=== PATIENT | female | born 1965 | race Hispanic/Latino ===

== ENCOUNTER 2016-06-24 00:42 | Inpatient (IN) | payer MEDICARE ==
[2016-06-24] MEDS ORDERED: DUONEB 0.5 MG-3 MG/3 ML SOLN IH ONE ×3 (01:43→05:21)
[2016-06-24 02:28] LABS: Basophils % (Auto) 0.6 % (0.0-1.8); Eosinophils % (Auto) 1.8 % (0.0-4.3); Hematocrit 43.3 % (30.3-42.9); Hemoglobin 14.1 gm/dl (10.1-14.3); Mean Corpuscular HGB Conc 33 % (30-34); Mean Corpuscular Hemoglobin 29 pg (28-32); Mean Corpuscular Volume 89 fl (79-97); Platelet Count 272 K/mm3 (140-440); Red Blood Count 4.85 M/mm3 (3.65-5.03); Red Cell Distribution Width 14.5 % (13.2-15.2)
[2016-06-24 02:48] LABS: BUN/Creatinine Ratio 18.57; Blood Urea Nitrogen 13 mg/dL (7-17); Calcium 9.6 mg/dL (8.4-10.2); Carbon Dioxide 29 mmol/L (22-30); Chloride 96.1 mmol/L (98-107); Glucose 337 mg/dL (65-100); Potassium 4.9 mmol/L (3.6-5.0); Sodium 139 mmol/L (137-145)
[2016-06-24 02:50] LABS: Anion Gap 19 mmol/L
[2016-06-24] MEDS ORDERED: ATROVENT IH ONE (06:19)
[2016-06-24] MEDS ORDERED: NACL 0.9% 1000 ML 1,000 ML IV ONE (06:19)
[2016-06-24] MEDS ORDERED: TORADOL IV ONE (06:19)
[2016-06-24] MEDS ORDERED: NITROSTAT SL PRN (06:20)
[2016-06-24] MEDS ORDERED: PROVENTIL IH ONE (06:20)
--- NOTE | 2016-06-24 06:27 | Emergency Department Report ---
ED General Adult HPI - General Chief complaint: Dyspnea/Respdistress Stated complaint: ANN Time Seen by Provider: 06/24/16 06:12 Source: patient, EMS (ems notes not available at time of chart dictation), RN notes reviewed, old records reviewed Mode of arrival: Wheelchair Limitations: Physical Limitation - History of Present Illness Initial comments: Past medical history: COPD, home oxygen dependent, 2 L, diabetes, hypertension, bipolar, anxiety, chronic pain, spinal fusion, possible congestive heart failure Primary care Dr.: Jennifer Lacy This is a 50-year-old female, whom I have evaluated in the past. Patient presents to the ER complaining of cough, wheezing, shortness of breath, chest tightness. Symptoms have been present for the past few days. The chest tightness is not ready to the back, arms or neck. There is no vomiting or diaphoresis. There is no leg pain. There is no leg swelling. The patient reports a recent admission to [facility], for similar symptoms, and indicates that she had a stress test and ultrasound to exclude blood clots, and she indicates that these were negative. Patient's symptoms are consistent with her prior episodes of COPD, she reports triggers include cold weather, change of seasons, viral syndrome. -: Gradual Location: chest Severity scale (0 -10): 0 Quality: aching Consistency: intermittent Improves with: rest Worsens with: movement Associated Symptoms: chest pain, cough, loss of appetite, shortness of breath, weakness - Related Data Home Medications Medication Instructions Recorded Confirmed Last Taken Aspirin 81 mg PO DAILY 01/23/16 06/24/16 1 Day Ago 81 Citalopram Hydrobromide [celeXA] 40 mg PO DAILY 01/23/16 06/24/16 1 Day Ago 40 Insulin Lispro [HumaLOG VIAL] 10 units SQ AC 01/23/16 06/24/16 1 Day Ago 10 LORazepam [Ativan] 2 mg PO BID PRN 01/23/16 06/24/16 1 Day Ago 2 Lisinopril [Zestril] 20 mg PO QDAY 01/23/16 06/24/16 1 Day Ago 20 Morphine [Morphine TAB] 15 mg PO BID 01/23/16 06/24/16 1 Day Ago 15 Olanzapine [OLANZapine] 10 mg PO QHS 01/23/16 06/24/16 1 Day Ago 10 Allergies Allergy/AdvReac Type Severity Reaction Status Date / Time oxycodone HCl [From Percocet] Allergy Angioedema Verified 01/23/16 06:50 Penicillins Allergy Angioedema Verified 01/23/16 06:50 prednisone Allergy Unknown Verified 06/24/16 01:38 bupropion HCl AdvReac Unknown Verified 01/23/16 06:50 [From Wellbutrin] divalproex sodium AdvReac Unknown Verified 01/23/16 06:50 [From Depakote] fluoxetine HCl [From Prozac] AdvReac Unknown Verified 01/23/16 06:50 lithium AdvReac Unknown Verified 01/23/16 06:50 ED Review of Systems ROS: Stated complaint: ANN Other details as noted in HPI Constitutional: malaise, weakness Eyes: denies: eye discharge ENT: denies: epistaxis Respiratory: shortness of breath, SOB with exertion, wheezing Cardiovascular: chest pain, dyspnea on exertion Gastrointestinal: denies: vomiting Genitourinary: as per HPI Musculoskeletal: back pain, myalgia Skin: denies: lesions Neurological: weakness Psychiatric: anxiety ED Past Medical Hx - Past Medical History Previous Medical History?: Yes Hx Hypertension: Yes Hx Congestive Heart Failure: Yes Hx Diabetes: Yes Hx Psychiatric Treatment: Yes Hx Asthma: Yes Hx COPD: Yes Hx HIV: No - Surgical History Past Surgical History?: Yes Additional Surgical History: left hip - Social History Smoking Status: Former Smoker - Medications Home Medications: Home Medications Medication Instructions Recorded Confirmed Last Taken Type Aspirin 81 mg PO DAILY 01/23/16 06/24/16 1 Day Ago History 81 Citalopram Hydrobromide [celeXA] 40 mg PO DAILY 01/23/16 06/24/16 1 Day Ago History 40 Insulin Lispro [HumaLOG VIAL] 10 units SQ AC 01/23/16 06/24/16 1 Day Ago History 10 LORazepam [Ativan] 2 mg PO BID PRN 01/23/16 06/24/16 1 Day Ago History 2 Lisinopril [Zestril] 20 mg PO QDAY 01/23/16 06/24/16 1 Day Ago History 20 Morphine [Morphine TAB] 15 mg PO BID 01/23/16 06/24/16 1 Day Ago History 15 Olanzapine [OLANZapine] 10 mg PO QHS 01/23/16 06/24/16 1 Day Ago History 10 ED Physical Exam - General Limitations: No Limitations, Physical Limitation General appearance: alert, obese - Head Head exam: Present: atraumatic, normocephalic - Eye Eye exam: Present: normal appearance, EOMI. Absent: nystagmus - ENT ENT exam: Present: normal exam, normal orophraynx, mucous membranes moist, normal external ear exam - Neck Neck exam: Present: normal inspection, full ROM. Absent: tenderness, meningismus - Respiratory Respiratory exam: Present: respiratory distress, wheezes, rhonchi, chest wall tenderness - Cardiovascular Cardiovascular Exam: Present: regular rate, normal rhythm, normal heart sounds. Absent: bradycardia, tachycardia, irregular rhythm, systolic murmur, diastolic murmur, rubs, gallop - GI/Abdominal GI/Abdominal exam: Present: soft, normal bowel sounds. Absent: distended, tenderness, guarding, rebound, rigid, pulsatile mass - Extremities Exam Extremities exam: Present: normal inspection, full ROM, normal capillary refill. Absent: tenderness, pedal edema, joint swelling, calf tenderness - Back Exam Back exam: Present: normal inspection, full ROM. Absent: tenderness, CVA tenderness (R), CVA tenderness (L), muscle spasm, paraspinal tenderness, vertebral tenderness - Neurological Exam Neurological exam: Present: alert, other (Extraocular movements intact. Tongue midline. No facial droop. Facial sensation intact to light touch in the V1, V2 , V3 distribution bilaterally. 5 and 5 strength in 4 extremities.. Sensation is intact to light touch in 4 extremities.). Absent: motor sensory deficit - Psychiatric Psychiatric exam: Present: anxious - Skin Skin exam: Present: warm, dry, intact, normal color. Absent: rash ED Course Vital Signs 06/24/16 06/24/16 06/24/16 01:32 01:51 02:00 Temperature 98.7 F Pulse Rate 88 Pulse Rate [ 89 92 H Throughout] Respiratory 24 Rate Respiratory 20 20 Rate [ Throughout] Blood Pressure 125/81 Blood Pressure [Left] O2 Sat by Pulse 99 Oximetry 06/24/16 06/24/16 06/24/16 04:49 05:28 05:35 Temperature 98.7 F Pulse Rate 89 Pulse Rate [ 80 85 Throughout] Respiratory 20 Rate Respiratory 16 16 Rate [ Throughout] Blood Pressure 133/81 Blood Pressure [Left] O2 Sat by Pulse 98 Oximetry 01/06/24/16 06/24/16 05:57 05:59 06:00 Temperature Pulse Rate 87 81 Pulse Rate [ Throughout] Respiratory 20 18 Rate Respiratory Rate [ Throughout] Blood Pressure Blood Pressure 131/68 134/66 [Left] O2 Sat by Pulse 96 96 96 Oximetry 06/24/16 06/24/16 06/24/16 06:36 12:55 13:10 Temperature Pulse Rate 94 H Pulse Rate [ 78 Throughout] Respiratory 18 Rate Respiratory 20 Rate [ Throughout] Blood Pressure 146/76 Blood Pressure [Left] O2 Sat by Pulse Oximetry - Reevaluation(s) Reevaluation #1: 06/24/16 06:28 Differential diagnosis: COPD exacerbation, pneumonia, bronchitis, congestive heart failure, acute coronary syndrome, pulmonary embolus Assessment and plan: 50-year-old female with shortness of breath, wheezing, oxygen dependent, saturating at 93/94% on 2 L, most likely with recurrent COPD exacerbation. I have evaluated the patient for similar symptoms in the past. I appreciates that the patient had a recent negative stress test by her own recall, we will attempt to obtain her old medical records and clarified. Patient had a negative CT angiogram of the chest at this facility in December of last year for pulmonary embolus. Nevertheless, given her recent reports of hospital admission, I will send a d-dimer to risk stratify her for pulmonary embolus, although I think that she is a low pretest probability candidate. She will be treated with nonnarcotic pain medication, and she is known to tolerate Solu-Medrol. I highly doubt acute coronary syndrome, but I will order as needed nitroglycerin. There may be a component of volume depletion secondary to her probable COPD, clinically I do not believe that she is finding overloaded, and I will give her 1 L of IV fluid. Reevaluation #2: 06/24/16 07:37 D-dimer is still pending. Informed by nurse the patient ambulated to the restroom without difficulty. Insulin ordered for hyperglycemia. Repeat troponin ordered. Reevaluation #3: 06/24/16 08:02 D-dimer is negative. Patient's medical records are received. She was admitted from June 12 2 June 14. Patient was diagnosed with a COPD exacerbation, and also had a positive nuclear stress test. Cardiology was consult, but the discharge summary indicates that the patient refused further cardiac testing. Patient is still wheezing, she still reports that she is somewhat short of breath. I have gone back to reevaluate the patient. She stated that she would be amenable to a more aggressive cardiac workup if cardiology felt like that would be appropriate. Case is discussed the Hospital physician, Dr. Bautista, who accepts the patient to his service for COPD exacerbation, chest pain with recent history of positive stress test. 06/24/16 08:04 Reevaluation #4: 06/24/16 08:22 d/w Willow Quintanilla of cardiology, their group will follow ED Medical Decision Making - Lab Data Result diagrams: 06/24/16 02:13 06/24/16 02:13 Vital Signs 06/24/16 06/24/16 06/24/16 01:32 01:51 02:00 Temperature 98.7 F Pulse Rate 88 Pulse Rate [ 89 92 H Throughout] Respiratory 24 Rate Respiratory 20 20 Rate [ Throughout] Blood Pressure 125/81 Blood Pressure [Left] O2 Sat by Pulse 99 Oximetry 06/24/16 06/24/16 06/24/16 04:49 05:28 05:35 Temperature 98.7 F Pulse Rate 89 Pulse Rate [ 80 85 Throughout] Respiratory 20 Rate Respiratory 16 16 Rate [ Throughout] Blood Pressure 133/81 Blood Pressure [Left] O2 Sat by Pulse 98 Oximetry 06/24/16 06/24/16 06/24/16 05:57 05:59 06:00 Temperature Pulse Rate 87 81 Pulse Rate [ Throughout] Respiratory 20 18 Rate Respiratory Rate [ Throughout] Blood Pressure Blood Pressure 131/68 134/66 [Left] O2 Sat by Pulse 96 96 96 Oximetry Lab Results 06/24/16 06/24/16 06/24/16 Range/Units 02:13 02:13 03:26 WBC 10.0 (4.5-11.0) K/mm3 RBC 4.85 (3.65-5.03) M/mm3 Hgb 14.1 (10.1-14.3) gm/dl Hct 43.3 H (30.3-42.9) % MCV 89 (79-97) fl MCH 29 (28-32) pg MCHC 33 (30-34) % RDW 14.5 (13.2-15.2) % Plt Count 272 (140-440) K/mm3 Lymph % (Auto) 9.0 L (13.4-35.0) % [place] % (Auto) 2.5 (0.0-7.3) % Eos % (Auto) 1.8 (0.0-4.3) % Baso % (Auto) 0.6 (0.0-1.8) % Lymph # 0.9 L (1.2-5.4) K/mm3 [place] # 0.2 (0.0-0.8) K/mm3 Eos # 0.2 (0.0-0.4) K/mm3 Baso # 0.1 (0.0-0.1) K/mm3 Seg Neutrophils % 86.1 H (40.0-70.0) % Seg Neutrophils # 8.6 H (1.8-7.7) K/mm3 Sodium 139 (137-145) mmol/L Potassium 4.9 (3.6-5.0) mmol/L Chloride 96.1 L (98-107) mmol/L Carbon Dioxide 29 (22-30) mmol/L Anion Gap 19 mmol/L BUN 13 (7-17) mg/dL Creatinine 0.7 (0.7-1.2) mg/dL Estimated GFR > 60 ml/min BUN/Creatinine Ratio 18.57 % Glucose 337 H (65-100) mg/dL POC Glucose 317 H (70-105) Calcium 9.6 (8.4-10.2) mg/dL Troponin T < 0.010 (0.00-0.029) ng/mL NT-Pro-B Natriuret Pep 10.62 (0-900) pg/mL - EKG Data When compared to previous EKG there are: no significant change 06/24/16 06:30 Normal sinus, 87 beats per minute, low voltage, QTC 459 ms, not consistent with STEMI. Appears unchanged from prior EKG from 05/11/2016. - Radiology Data Radiology results: image reviewed interpreted by me: X-ray chest negative Critical care attestation.: If time is entered above; I have spent that time in minutes in the direct care of this critically ill patient, excluding procedure time. ED Disposition Clinical Impression: Chest pain, COPD exacerbation Disposition: OP ADMITTED IP TO THIS HOSP Is pt being admited?: Yes Does the pt Need Aspirin: Yes Condition: Good
--- NOTE | 2016-06-24 07:16 | XRay Report ---
ROUTINE CHEST, TWO VIEWS: HISTORY: Shortness of breath. The trachea, heart, mediastinal contour, lung kramer and bony thorax are unremarkable. IMPRESSION: Unremarkable chest x-ray.
[2016-06-24 07:36] LABS: INR 0.95 (0.87-1.13)
[2016-06-24] MEDS ORDERED: BABY ASPIRIN PO ONE (08:04)
--- NOTE | 2016-06-24 08:25 | Admit Criteria Form ---
Admission Criteria Documentation: COPD Clinical Indications for Admission to Inpatient Care (Place 'X' for any and all applicable criteria): Admission is indicated for ANY ONE of the following (1)(2)(3): [ ]I. Acute exacerbation by high-risk comorbidity (e.g., pneumonia, dysrhythmia, heart failure, pleural effusion, pneumothorax) or severe underlying COPD (e.g., steroid dependent) [X]II. Inpatient admission required rather than observation care (see Chronic Obstructive Pulmonary Disease: Observation Care) because of ANY ONE of the following: [X]a) New or pre-existing signs or symptoms of COPD (eg, dyspnea or Tachypnea at rest or with minimal activity) that persist despite outpatient and observation care treatment [ ]b) New-onset hypoxemia (room air SaO2 less than 90%, PO2 less than 60 mm Hg (8.0 kPa)) that persists despite outpatient and observation care treatment [ ]c) Worsening of pre-existing hypoxemia (eg, new or increased requirement for supplemental oxygen to maintain oxygenation at baseline level) that persists despite outpatient and observation care treatment, with oxygen treatment needs performable only in acute inpatient setting [ ]d) Hypercarbia (PCO2 greater than 40 mm Hg (5.3 kPa))-induced respiratory acidosis (pH less than 7.35) that persists despite outpatient and observation care treatment [ ]e) Supplemental oxygen or respiratory treatments for over 24 hours that are performable only in acute inpatient setting [ ]f) Chest tube placement with active evacuation (e.g., suction, drainage) (5) [X]g) Other condition, treatment or monitoring requiring inpatient admission [ ]III. Planned invasive surgical or diagnostic procedures requiring acute- care hospitalization [ ]IV. Acute respiratory failure (e.g., uncompensated hypercarbia, severe hypoxemia) [ ]V. Severe comorbid condition (e.g., severe steroid myopathy, acute vertebral fracture) that has acutely worsened pulmonary function [ ]. Confusion state, lethargy, obtundation, stupor or coma Extended stay beyond goal length of stay may be needed for (31)(32): [ ]a ) Respiratory Failure. [ ]b) Severe or persisting hypoxemia or hypercarbia [ ]c) Severe or persistent dyspnea [ ]d) Comorbidities (e.g. chronic heart failure, atrial fibrillation with rapid response, pneumonia) [ ]e) Malnutrition The original [facility] content created by [facility] has been revised. The portions of the content which have been revised are identified through the use of italic text or in bold, and [facility] has neither reviewed nor approved the modified material. All other unmodified content is copyright [facility]. Please see references footnoted in the original [facility] edition 2016 Admission Criteria Met: Yes
[2016-06-24] MEDS ORDERED: SODIUM CHLORIDE FLUSH SYRINGE 10 ML IV PRN (08:52)
[2016-06-24] MEDS ORDERED: DULCOLAX PR PRN (08:52)
[2016-06-24] MEDS ORDERED: TYLENOL PO PRN (08:52)
[2016-06-24] MEDS ORDERED: PROVENTIL IH PRN (08:52)
[2016-06-24] MEDS ORDERED: D50W (25GM) IV PRN (08:56)
[2016-06-24] MEDS ORDERED: ATIVAN IV ONE (09:00)
--- NOTE | 2016-06-24 09:06 | History and Physical Report ---
History of Present Illness Date of examination: 06/24/16 Date of admission: 06/24/16 Chief complaint: Shortness of breath, chest pain History of present illness: Patient is a 50 year old male with past medical hx of COPD, DM, HTN, bipolar, anxiety, Chronic pain, spinal fusion, o2 dependant previous CT of the chest concerning for adenopathy who presents to the ER will complain cough shortness of breath, cough, wheezing, chest tightness for the past 3 days. The patient states that she was recently seen at [facility] was subsequently discharged at that time recommendation to have a cardiac catheterization due to positive stress test but did not accept the result. She reports that on getting home her shortness of breath has progressively gotten worse. She also reports that she's been coughing and since then has developed a chest tightness. Which she describes as 4/10 in intensity with no radiation. Aggravated by cough. She is very emotional and afraid of any invasive cardiac workup. ROS Constitutional: No fever, fatigue or weight loss. Skin: No rash. Eyes: No recent vision problems or eye pain. ENT: No congestion, ear pain, or sore throat. Endocrine: No thyroid problems. Cardiovascular: Chest pain Respiratory: Productive cough shortness of breath not associated congestion, or wheezing. Gastrointestinal: No abdominal pain, nausea, vomiting, or diarrhea. Genitourinary: No dysuria. Musculoskeletal: No joint swelling. Neurologic: No seizures. Hematologic: No unusual bruising or bleeding. Psychiatric: Strep depression, significantly anxious. All other systems reviewed and otherwise negative. Past History Past Medical History: COPD, hypertension, hyperlipidemia, other (depression, anxiety depression, anxiety) Past Surgical History: Other (spinal fusion, hip surgery) Social history: smoking (former), alcohol abuse (former history of), full code. denies: prescription drug abuse, IV drug use Family history: no significant family history Medications and Allergies Allergies Allergy/AdvReac Type Severity Reaction Status Date / Time oxycodone HCl [From Percocet] Allergy Angioedema Verified 01/23/16 06:50 Penicillins Allergy Angioedema Verified 01/23/16 06:50 prednisone Allergy Unknown Verified 06/24/16 01:38 bupropion HCl AdvReac Unknown Verified 01/23/16 06:50 [From Wellbutrin] divalproex sodium AdvReac Unknown Verified 01/23/16 06:50 [From Depakote] fluoxetine HCl [From Prozac] AdvReac Unknown Verified 01/23/16 06:50 lithium AdvReac Unknown Verified 01/23/16 06:50 Home Medications Medication Instructions Recorded Confirmed Last Taken Type Aspirin 81 mg PO DAILY 01/23/16 06/24/16 1 Day Ago History 81 Citalopram Hydrobromide [celeXA] 40 mg PO DAILY 01/23/16 06/24/16 1 Day Ago History 40 Insulin Lispro [HumaLOG VIAL] 10 units SQ AC 01/23/16 06/24/16 1 Day Ago History 10 LORazepam [Ativan] 2 mg PO BID PRN 01/23/16 06/24/16 1 Day Ago History 2 Lisinopril [Zestril] 20 mg PO QDAY 01/23/16 06/24/16 1 Day Ago History 20 Morphine [Morphine TAB] 15 mg PO BID 01/23/16 06/24/16 1 Day Ago History 15 Olanzapine [OLANZapine] 10 mg PO QHS 01/23/16 06/24/16 1 Day Ago History 10 Active Meds: Active Medications Acetaminophen (Tylenol) 650 mg PO Q4H PRN PRN Reason: Pain MILD(1-3)/Fever >100.5/KHAN Albuterol (Proventil) 2.5 mg IH Q4HRT PRN PRN Reason: Shortness Of Breath Albuterol/Ipratropium (Duoneb 0.5 Mg-3 Mg/3 Ml Soln) 1 ampul IH Q6HRT [facility] Aspirin (Baby Aspirin) 81 mg PO DAILY VIC Bisacodyl (Dulcolax) 10 mg [place] QDAY PRN PRN Reason: Constipation unrelieved by MOM Budesonide (Pulmicort) 0.5 mg IH Q12HRT VIC Citalopram Hydrobromide (Celexa) 40 mg PO ONCE ONE Stop: 06/24/16 08:57 Citalopram Hydrobromide (Celexa) 40 mg PO QDAY VIC Dextrose (D50w (25gm)) 50 ml IV PRN PRN PRN Reason: Hypoglycemia Insulin Aspart (Novolog) 0 units SUB-Q ACHS VIC PRN Reason: Protocol Insulin Human Isoph/Insulin Regular (Novolin 70/30) 20 unit SUB-Q BIDDIAB VIC Lisinopril (Zestril) 20 mg PO QDAY VIC Lorazepam (Ativan) 2 mg PO BID PRN PRN Reason: Anxiety Magnesium Hydroxide (Milk Of Magnesia) 30 ml PO Q4H PRN PRN Reason: Constipation Methylprednisolone Sodium Succinate (Solu-Medrol) 40 mg IV Q8HR VIC Morphine Sulfate (Morphine) 15 mg PO BID VIC Nitroglycerin (Nitrostat) 0.4 mg SL .Q5MIN PRN PRN Reason: Chest Pain Olanzapine (Zyprexa) 10 mg PO QHS VIC Ondansetron HCl (Zofran) 4 mg IV Q8H PRN PRN Reason: N/V unrelieved by Reglan Sodium Chloride (Sodium Chloride Flush Syringe 10 Ml) 10 ml IV PRN PRN PRN Reason: LINE FLUSH Exam - Physical Exam Narrative exam: VITAL SIGNS: Reviewed. GENERAL: The patient appeared well nourished and normally developed. Vital signs as documented. HEAD: No signs of head trauma. EYES: Pupils are equal. Extraocular motions intact. EARS: Hearing grossly intact. MOUTH: Missing dentition. NECK: No adenopathy, no JVD. CHEST: Chest with clear breath sounds bilaterally. No wheezes, rales, or rhonchi. CARDIAC: Regular rate and rhythm. S1 and S2, without murmurs, gallops, or rubs. VASCULAR: No Edema. Peripheral pulses normal and equal in all extremities. ABDOMEN: Soft, without detectable tenderness. No sign of distention. No rebound or guarding, and no masses palpated. Bowel Sounds normal. MUSCULOSKELETAL: Good range of motion of all major joints. Extremities without clubbing, cyanosis or edema. NEUROLOGIC EXAM: Alert and oriented x 3. No focal sensory or strength deficits. Speech normal. Follows commands. PSYCHIATRIC: Mood emotional SKIN: No rash or lesions. - Constitutional Vitals: Temp Pulse Resp BP Pulse Ox 98.7 F 78 20 134/66 96 06/24/16 04:49 06/24/16 06:36 06/24/16 06:36 06/24/16 06:00 06/24/16 06:00 Results - Labs CBC & Chem 7: 06/24/16 02:13 06/24/16 02:13 Labs: Laboratory Last Values WBC 10.0 K/mm3 (4.5-11.0) 06/24/16 02:13 RBC 4.85 M/mm3 (3.65-5.03) 06/24/16 02:13 Hgb 14.1 gm/dl (10.1-14.3) 06/24/16 02:13 Hct 43.3 % (30.3-42.9) H 06/24/16 02:13 MCV 89 fl (79-97) 06/24/16 02:13 MCH 29 pg (28-32) 06/24/16 02:13 MCHC 33 % (30-34) 06/24/16 02:13 RDW 14.5 % (13.2-15.2) 06/24/16 02:13 Plt Count 272 K/mm3 (140-440) 06/24/16 02:13 Lymph % (Auto) 9.0 % (13.4-35.0) L 06/24/16 02:13 [place] % (Auto) 2.5 % (0.0-7.3) 06/24/16 02:13 Eos % (Auto) 1.8 % (0.0-4.3) 06/24/16 02:13 Baso % (Auto) 0.6 % (0.0-1.8) 06/24/16 02:13 Lymph # 0.9 K/mm3 (1.2-5.4) L 06/24/16 02:13 [place] # 0.2 K/mm3 (0.0-0.8) 06/24/16 02:13 Eos # 0.2 K/mm3 (0.0-0.4) 06/24/16 02:13 Baso # 0.1 K/mm3 (0.0-0.1) 06/24/16 02:13 Seg Neutrophils % 86.1 % (40.0-70.0) H 06/24/16 02:13 Seg Neutrophils # 8.6 K/mm3 (1.8-7.7) H 06/24/16 02:13 PT 12.6 Sec. (12.2-14.9) 06/24/16 06:20 INR 0.95 (0.87-1.13) 06/24/16 06:20 D-Dimer < 135 ng/mlDDU (0-234) 06/24/16 06:20 Sodium 139 mmol/L (137-145) 06/24/16 02:13 Potassium 4.9 mmol/L (3.6-5.0) 06/24/16 02:13 Chloride 96.1 mmol/L (98-107) L 06/24/16 02:13 Carbon Dioxide 29 mmol/L (22-30) 06/24/16 02:13 Anion Gap 19 mmol/L 06/24/16 02:13 BUN 13 mg/dL (7-17) 06/24/16 02:13 Creatinine 0.7 mg/dL (0.7-1.2) 06/24/16 02:13 Estimated GFR > 60 ml/min 06/24/16 02:13 BUN/Creatinine Ratio 18.57 % 06/24/16 02:13 Glucose 337 mg/dL (65-100) H 06/24/16 02:13 POC Glucose 317 (70-105) H 06/24/16 03:26 Calcium 9.6 mg/dL (8.4-10.2) 06/24/16 02:13 Troponin T < 0.010 ng/mL (0.00-0.029) 06/24/16 07:48 NT-Pro-B Natriuret Pep 10.62 pg/mL (0-900) 06/24/16 02:13 - Imaging and Cardiology EKG: image reviewed (normal sinus rhythm) Chest x-ray: image reviewed (no acute pathology) Assessment and Plan Assessment and plan: Patient is a 50 year old male with past medical hx of COPD, DM, HTN, bipolar, anxiety, Chronic pain, spinal fusion, o2 dependant previous CT of the chest concerning for adenopathy who presents to the ER will complain cough shortness of breath, cough, wheezing, chest tightness for the past 3 days. The patient states that she was recently seen at [facility] was subsequently discharged at that time recommendation to have a cardiac catheterization due to positive stress test but did not accept the result. She reports that on getting home her shortness of breath has progressively gotten worse. She also reports that she's been coughing and since then has developed a chest tightness. Which she describes as 4/10 in intensity with no radiation. Aggravated by cough. She is very emotional and afraid of any invasive cardiac workup * COPD exacerbation with possible acute viral bronchitis * Respiratory failure with acute on chronic hypoxia * Anxiety disorder * Depression * Atypical chest pain secondary to recurrent cough * Recurrent cough possible secondary to bronchitis * Morbid obesity BMI 53.6 * CAD * Diabetes mellitus Plan * We'll start patient on inhaled and systemic corticosteroids and being mindful of blood sugar status * Cardiology consult for evaluation concerning a recent positive stress test with recurrent chest pain although I doubt ACS * Resume home medication * Provided extensive counseling on weight loss with elevated patient verbalized understanding * We'll hold off on antibiotics at this point and monitor patient closely * Start Robitussin for cough suppression * DVT and GI prophylaxis * Continue home base insulin therapy Advance Directives: Yes Plan of care discussed with patient/family: Yes
[2016-06-24] MEDS ORDERED: ATIVAN ONE (09:43)
[2016-06-24] MEDS ORDERED: MILK OF MAGNESIA PO PRN (10:00)
[2016-06-24] MEDS ORDERED: ZOFRAN IV PRN (10:00)
[2016-06-24] MEDS ORDERED: celeXA PO ONE (10:00)
[2016-06-24] MEDS ORDERED: MORPHINE PO SCH (10:00)
--- NOTE | 2016-06-24 10:13 | Consultation ---
History of Present Illness Consult date: 06/24/16 Requesting physician: ASUNCION BAUTISTA Consult reason: chest pain History of present illness: The patient is a 50 year old female with a history of COPD on home O2, hypetension, diabetes who presented with complaints of worsening shortness of breath, wheezing and chest tightness over the past several days. No palpitations , nausea, vomiting or diaphoresis. She was recently admitted to [facility] for similar complaints and had a stress test there which was reported as abnormal. Troponin negative x 2. D-dimer negative. BNP 10. Past History Past Medical History: COPD (on home O2), diabetes, hypertension, other (biploar disorder, anxiety, chronic pain) Past Surgical History: Other (spinal fusion, left hip) Social history: denies: smoking, alcohol abuse, prescription drug abuse, IV drug use Family history: no significant family history Medications and Allergies Allergies Allergy/AdvReac Type Severity Reaction Status Date / Time oxycodone HCl [From Percocet] Allergy Angioedema Verified 01/23/16 06:50 Penicillins Allergy Angioedema Verified 01/23/16 06:50 prednisone Allergy Unknown Verified 06/24/16 01:38 bupropion HCl AdvReac Unknown Verified 01/23/16 06:50 [From Wellbutrin] divalproex sodium AdvReac Unknown Verified 01/23/16 06:50 [From Depakote] fluoxetine HCl [From Prozac] AdvReac Unknown Verified 01/23/16 06:50 lithium AdvReac Unknown Verified 01/23/16 06:50 Home Medications Medication Instructions Recorded Confirmed Last Taken Type Aspirin 81 mg PO DAILY 01/23/16 06/24/16 1 Day Ago History 81 Citalopram Hydrobromide [celeXA] 40 mg PO DAILY 01/23/16 06/24/16 1 Day Ago History 40 Insulin Lispro [HumaLOG VIAL] 10 units SQ AC 01/23/16 06/24/16 1 Day Ago History 10 LORazepam [Ativan] 2 mg PO BID PRN 01/23/16 06/24/16 1 Day Ago History 2 Lisinopril [Zestril] 20 mg PO QDAY 01/23/16 06/24/16 1 Day Ago History 20 Morphine [Morphine TAB] 15 mg PO BID 08/31/16 01/31/17 1 Day Ago History 15 Olanzapine [OLANZapine] 10 mg PO QHS 01/23/16 06/24/16 1 Day Ago History 10 Active Meds: Active Medications Acetaminophen (Tylenol) 650 mg PO Q4H PRN PRN Reason: Pain MILD(1-3)/Fever >100.5/KHAN Albuterol (Proventil) 2.5 mg IH Q4HRT PRN PRN Reason: Shortness Of Breath Albuterol/Ipratropium (Duoneb 0.5 Mg-3 Mg/3 Ml Soln) 1 ampul IH Q6HRT [facility] Aspirin (Baby Aspirin) 81 mg PO DAILY VIC Bisacodyl (Dulcolax) [address] QDAY PRN PRN Reason: Constipation unrelieved by MOM Budesonide (Pulmicort) 0.5 mg IH Q12HRT VIC Citalopram Hydrobromide (Celexa) 40 mg PO QDAY [facility] Dextrose (D50w (25gm)) 50 ml IV PRN PRN PRN Reason: Hypoglycemia Insulin Aspart (Novolog) 0 units SUB-Q ACHS VIC PRN Reason: Protocol Insulin Human Isoph/Insulin Regular (Novolin 70/30) 20 unit SUB-Q BIDDIAB [facility] Lisinopril (Zestril) 20 mg PO QDAY VIC Lorazepam (Ativan) 2 mg PO BID PRN PRN Reason: Anxiety Magnesium Hydroxide (Milk Of Magnesia) 30 ml PO Q4H PRN PRN Reason: Constipation Methylprednisolone Sodium Succinate (Solu-Medrol) 40 mg IV Q8HR [facility] Morphine Sulfate (Morphine) 15 mg PO BID [facility] Nitroglycerin (Nitrostat) 0.4 mg SL .Q5MIN PRN PRN Reason: Chest Pain Olanzapine (Zyprexa) 10 mg PO QHS VIC Ondansetron HCl (Zofran) 4 mg IV Q8H PRN PRN Reason: N/V unrelieved by Reglan Sodium Chloride (Sodium Chloride Flush Syringe 10 Ml) 10 ml IV PRN PRN PRN Reason: LINE FLUSH Review of Systems Constitutional: no fever, no chills Ears, nose, mouth and throat: no nasal congestion, no nasal discharge, no sinus pressure Cardiovascular: chest pain, shortness of breath, dyspnea on exertion, no palpitations Respiratory: shortness of breath, dyspnea on exertion, wheezing Gastrointestinal: no abdominal pain, no nausea, no vomiting, no diarrhea, no constipation Genitourinary Female: no dysuria, no urgency Musculoskeletal: no neck stiffness, no neck pain Integumentary: no rash, no pruritis Neurological: no parathesias, no numbness, no tingling, no headaches Endocrine: no cold intolerance, no heat intolerance Hematologic/Lymphatic: no easy bruising, no easy bleeding Allergic/Immunologic: no urticaria, no wheezing Physical Examination Vital Signs Temp Pulse Resp BP Pulse Ox 98.7 F 88 24 125/81 99 06/24/16 01:32 06/24/16 01:32 06/24/16 01:32 06/24/16 01:32 06/24/16 01:32 General appearance: no acute distress, obese HEENT: Positive: Normocephaly, Mucus Membranes Moist Neck: Positive: neck supple, trachea midline Cardiac: Positive: Reg Rate and Rhythm, S1/S2 Lungs: Positive: Wheezes Neuro: Positive: Grossly Intact Abdomen: Positive: Soft, Active Bowel Sounds. Negative: Tender Skin: Positive: Clear. Negative: Rash Extremities: Absent: edema Results 06/24/16 02:13 06/24/16 02:13 - Imaging and Cardiology EKG: image reviewed EKG interpretations - Telemetry EKG Rhythm: Sinus Rhythm - EKG Sinus rhythms and dysrhythmias: sinus rhythm Assessment and Plan COPD exacerbation management per primary Atypical chest pain troponin negative x 2 BNP 10, d-dimer negative await recent stress test report from [facility] Hypertension stable continue lisinopril Diabetes Agree with management of COPD exacerbation. Await recent stress test report from [employer]. The patient has been seen in conjunction with Dr. Hudson who agrees with the assessment and plan of care. Thank you Dr. Bautista for allowing us to participate in the care of this patient.
[2016-06-24 10:19] LABS: Creatine Kinase MB 1.4 ng/mL (0.0-4.0)
[2016-06-24 10:22] LABS: Creatine Kinase 48 units/L (30-135)
[2016-06-24] MEDS: PULMICORT IH SCH ×2 (11:14→19:55)
[2016-06-24] MEDS: BABY ASPIRIN PO SCH (12:55)
[2016-06-24] MEDS: ZESTRIL PO SCH (12:55)
[2016-06-24] MEDS: NOVOLOG SUB-Q SCH ×3 (12:58→22:11)
[2016-06-24] MEDS: MORPHINE PO SCH ×2 (13:10→21:06)
[2016-06-24] MEDS: DUONEB 0.5 MG-3 MG/3 ML SOLN IH SCH ×2 (14:48→19:55)
[2016-06-24] MEDS: ATIVAN PO PRN ×2 (14:53→21:07)
[2016-06-24] MEDS: ZOCOR PO SCH (21:08)
[2016-06-25] MEDS: DUONEB 0.5 MG-3 MG/3 ML SOLN IH SCH ×4 (01:55→19:26)
[2016-06-25] MEDS: PULMICORT IH SCH ×2 (08:15→19:26)
--- NOTE | 2016-06-25 13:34 | Progress Note ---
Assessment and Plan Assessment and plan: Patient is a 50 year old male with past medical hx of COPD, DM, HTN, bipolar, anxiety, Chronic pain, spinal fusion, o2 dependant previous CT of the chest concerning for adenopathy who presents to the ER will complain cough shortness of breath, cough, wheezing, chest tightness for the past 3 days. The patient states that she was recently seen at [facility], [place] was subsequently discharged at that time recommendation to have a cardiac catheterization due to positive stress test but did not accept the result. She reports that on getting home her shortness of breath has progressively gotten worse. She also reports that she's been coughing and since then has developed a chest tightness. Which she describes as 4/10 in intensity with no radiation. Aggravated by cough. She is very emotional and afraid of any invasive cardiac workup * COPD exacerbation with possible acute viral bronchitis * Respiratory failure with acute on chronic hypoxia * Anxiety disorder * Depression * Atypical chest pain secondary to recurrent cough * Recurrent cough possible secondary to bronchitis * Morbid obesity BMI 53.6 * CAD * Diabetes mellitus Plan * continue inhaled and systemic corticosteroids and being mindful of blood sugar status, thanks angel boswell to discuss * [facility]/s * copd exacerbation History Interval history: Patient seen and examined, in no acute and much emotionally control that yesteray. Hospitalist Physical - Physical exam Narrative exam: VITAL SIGNS: Reviewed. GENERAL: The patient appeared well nourished and normally developed. Vital signs as documented. HEAD: No signs of head trauma. EYES: Pupils are equal. Extraocular motions intact. EARS: Hearing grossly intact. MOUTH: Missing dentition. NECK: No adenopathy, no JVD. CHEST: Chest with clear breath sounds bilaterally. No wheezes, rales, or rhonchi. CARDIAC: Regular rate and rhythm. S1 and S2, without murmurs, gallops, or rubs. VASCULAR: No Edema. Peripheral pulses normal and equal in all extremities. ABDOMEN: Soft, without detectable tenderness. No sign of distention. No rebound or guarding, and no masses palpated. Bowel Sounds normal. MUSCULOSKELETAL: Good range of motion of all major joints. Extremities without clubbing, cyanosis or edema. NEUROLOGIC EXAM: Alert and oriented x 3. No focal sensory or strength deficits. Speech normal. Follows commands. PSYCHIATRIC: Mood emotional SKIN: No rash or lesions. - Constitutional Vitals: Temp Pulse Resp BP Pulse Ox 97.6 F 100 H 20 110/68 98 06/24/16 23:58 06/25/16 00:00 06/24/16 23:58 06/24/16 23:58 06/24/16 23:58 General appearance: Present: no acute distress, obese - EENT Eyes: Present: PERRL, EOM intact, irregular pupil Results - Labs CBC & Chem 7: 06/25/16 07:03 06/25/16 04:00 Labs: Laboratory Last Values WBC 10.0 K/mm3 (4.5-11.0) 06/24/16 02:13 RBC 4.85 M/mm3 (3.65-5.03) 06/24/16 02:13 Hgb 14.1 gm/dl (10.1-14.3) 06/24/16 02:13 Hct 43.3 % (30.3-42.9) H 06/24/16 02:13 MCV 89 fl (79-97) 06/24/16 02:13 MCH 29 pg (28-32) 06/24/16 02:13 MCHC 33 % (30-34) 06/24/16 02:13 RDW 14.5 % (13.2-15.2) 06/24/16 02:13 Plt Count 272 K/mm3 (140-440) 06/24/16 02:13 Lymph % (Auto) 9.0 % (13.4-35.0) L 06/24/16 02:13 Amador % (Auto) 2.5 % (0.0-7.3) 06/24/16 02:13 Eos % (Auto) 1.8 % (0.0-4.3) 06/24/16 02:13 Baso % (Auto) 0.6 % (0.0-1.8) 06/24/16 02:13 Lymph # 0.9 K/mm3 (1.2-5.4) L 06/24/16 02:13 Amador # 0.2 K/mm3 (0.0-0.8) 06/24/16 02:13 Eos # 0.2 K/mm3 (0.0-0.4) 06/24/16 02:13 Baso # 0.1 K/mm3 (0.0-0.1) 06/24/16 02:13 Seg Neutrophils % 86.1 % (40.0-70.0) H 06/24/16 02:13 Seg Neutrophils # 8.6 K/mm3 (1.8-7.7) H 06/24/16 02:13 PT 12.6 Sec. (12.2-14.9) 06/24/16 06:20 INR 0.95 (0.87-1.13) 06/24/16 06:20 D-Dimer < 135 ng/mlDDU (0-234) 06/24/16 06:20 Sodium 139 mmol/L (137-145) 06/24/16 02:13 Potassium 4.9 mmol/L (3.6-5.0) 06/24/16 02:13 Chloride 96.1 mmol/L (98-107) L 06/24/16 02:13 Carbon Dioxide 29 mmol/L (22-30) 06/24/16 02:13 Anion Gap 19 mmol/L 06/24/16 02:13 BUN 13 mg/dL (7-17) 06/24/16 02:13 Creatinine 0.7 mg/dL (0.7-1.2) 06/24/16 02:13 Estimated GFR > 60 ml/min 06/24/16 02:13 BUN/Creatinine Ratio 18.57 % 06/24/16 02:13 Glucose 337 mg/dL (65-100) H 06/24/16 02:13 POC Glucose 228 (70-105) H 06/25/16 08:27 Hemoglobin A1c 8.3 % (4-6) H 06/24/16 09:47 Calcium 9.6 mg/dL (8.4-10.2) 06/24/16 02:13 Total Creatine Kinase 48 units/L (30-135) 06/24/16 09:47 CK-MB (CK-2) 1.4 ng/mL (0.0-4.0) 06/24/16 09:47 CK-MB (CK-2) Rel Index 2.9 (0-4) 06/24/16 09:47 Troponin T < 0.010 ng/mL (0.00-0.029) 06/24/16 09:47 NT-Pro-B Natriuret Pep 10.62 pg/mL (0-900) 06/24/16 02:13 Triglycerides 88 mg/dL (2-149) 06/24/16 09:47 Cholesterol 224 mg/dL (50-199) H 06/24/16 09:47 LDL Cholesterol Direct 133 mg/dL (50-130) H 06/24/16 09:47 HDL Cholesterol 74 mg/dL (40-59) H 06/24/16 09:47 Cholesterol/HDL Ratio 3.02 % 06/24/16 09:47
[2016-06-25] MEDS: ATIVAN PO PRN ×2 (14:00→21:24)
[2016-06-25] MEDS: NOVOLOG SUB-Q SCH ×4 (14:00→23:11)
--- NOTE | 2016-06-25 14:12 | Progress Note ---
Assessment and Plan COPD exacerbation management per primary Atypical chest pain troponin negative x 2 BNP 10, d-dimer negative await recent stress test report from [employer] Hypertension stable continue lisinopril Diabetes Continue management of COPD exacerbation. Await recent stress test report from [facility]. The patient has been seen in conjunction with Dr. Hudson who agrees with the assessment and plan of care. Subjective Date of service: 06/25/16 Principal diagnosis: COPD exacerbation, atypical chest pain Interval history: The patient is resting in bed. She continues to c/o shortness of breath and chest tightness. Sinus rhythm on the monitor. Objective Last Vital Signs Temp 97.6 F 06/24/16 23:58 Pulse 100 H 06/25/16 00:00 Resp 20 06/24/16 23:58 BP 110/68 06/24/16 23:58 Pulse Ox 98 06/24/16 23:58 - Physical Examination General: No Apparent Distress HEENT: Positive: Normocephaly, Mucus Membranes Moist Neck: Positive: neck supple, trachea midline Cardiac: Positive: Reg Rate and Rhythm, S1/S2 Lungs: Positive: Wheezes Neuro: Positive: Grossly Intact Abdomen: Positive: Soft, Active Bowel Sounds. Negative: Tender Skin: Positive: Clear. Negative: Rash Extremities: Absent: edema - Imaging and Cardiology EKG: image reviewed (normal sinus rhythm) - Telemetry EKG Rhythm: Sinus Rhythm - EKG Sinus rhythms and dysrhythmias: sinus rhythm
[2016-06-25 14:51] LABS: Basophils % (Auto) 0.3 % (0.0-1.8); Eosinophils % (Auto) 0.1 % (0.0-4.3); Hematocrit 37.7 % (30.3-42.9); Hemoglobin 12.4 gm/dl (10.1-14.3); Mean Corpuscular HGB Conc 33 % (30-34); Mean Corpuscular Hemoglobin 30 pg (28-32); Mean Corpuscular Volume 90 fl (79-97); Platelet Count 256 K/mm3 (140-440); Red Blood Count 4.19 M/mm3 (3.65-5.03); Red Cell Distribution Width 14.3 % (13.2-15.2); White Blood Count 10.5 K/mm3 (4.5-11.0)
[2016-06-25 14:51] LABS: BUN/Creatinine Ratio 23.33; Blood Urea Nitrogen 14 mg/dL (7-17); Calcium 9.5 mg/dL (8.4-10.2); Carbon Dioxide 29 mmol/L (22-30); Chloride 103.7 mmol/L (98-107); Glucose 295 mg/dL (65-100); Potassium 4.7 mmol/L (3.6-5.0); Sodium 141 mmol/L (137-145)
[2016-06-25 15:29] LABS: Anion Gap 13 mmol/L
[2016-06-25] MEDS ORDERED: PROVENTIL IH PRN (15:35)
[2016-06-25] MEDS: BABY ASPIRIN PO SCH (19:22)
[2016-06-25] MEDS: MORPHINE PO SCH ×2 (19:23→21:23)
[2016-06-25] MEDS: ZESTRIL PO SCH (19:23)
[2016-06-25] MEDS: celeXA PO SCH (19:23)
[2016-06-25] MEDS: ZOCOR PO SCH (21:24)
--- NOTE | 2016-06-26 01:33 | Consultation ---
REFERRING PHYSICIAN: Conrad Bautista MD REASON FOR CONSULTATION: Lymphadenopathy. HISTORY OF PRESENT ILLNESS: The patient is a 50-year-old female with history of COPD, diabetes mellitus, hypertension, bipolar disorder, anxiety who presented to the hospital with shortness of breath, chest tightness. She has history of tobacco abuse. She a few weeks ago had presented to the hospital where she had a CT of the chest, which showed nonspecific adenopathy. She was seen at [facility], subsequently discharged and cardiac catheterization was recommended because of positive stress test, but the patient did not follow up and presented now with worsening shortness of breath. She denies any weight loss. Denies any fevers. Complains of night sweats. She denies any previous history of malignancy. PAST MEDICAL HISTORY: Positive as mentioned in history of present illness. SOCIAL HISTORY: Positive for tobacco abuse. REVIEW OF SYSTEMS: As mentioned in history of present illness. PHYSICAL EXAMINATION: GENERAL: The patient is awake. HEAD AND ENT: Unremarkable for any adenopathy. CHEST: Bilateral wheezes. CARDIOVASCULAR: Regular rate and rhythm. ABDOMEN: Soft and nontender. No organomegaly is noted. EXTREMITIES: No clubbing, cyanosis, or edema. LABORATORY DATA: The patient's last CT that showed abnormalities seemed to be in 01/2016, which did report adenopathy, I was not able to access the report fully at this time. ASSESSMENT: History of lymphadenopathy in the chest in the past this patient with history of tobacco abuse and chronic obstructive pulmonary disease. PLAN: At this time, we will follow up on the CT. She is currently feeling fairly well. Once her acute episode of shortness of breath, etc. is resolved, I can follow up as outpatient and follow up on the abnormal CT. May need a repeat CT, especially since it has been a few months since her last CT was done. We will follow. JOB# [id number] JAVIER/CHRISSY
[2016-06-26] MEDS: DUONEB 0.5 MG-3 MG/3 ML SOLN IH SCH ×4 (02:06→20:45)
[2016-06-26] MEDS: PULMICORT IH SCH ×2 (08:20→20:45)
[2016-06-26] MEDS: NOVOLOG SUB-Q SCH ×4 (08:53→21:55)
[2016-06-26] MEDS: MORPHINE PO SCH ×2 (09:02→21:54)
[2016-06-26] MEDS: celeXA PO SCH (09:02)
[2016-06-26] MEDS: ZESTRIL PO SCH (09:09)
[2016-06-26] MEDS: BABY ASPIRIN PO SCH (09:09)
--- NOTE | 2016-06-26 10:43 | Progress Note ---
Assessment and Plan COPD exacerbation management per primary Atypical chest pain troponin negative x 2 BNP 10, d-dimer negative stress test done 06/13/16 at [facility]: fixed inferior defect with slight reversibility in the setting of significant breast and diaphragm attenuation, EF 74% Hypertension stable continue lisinopril Diabetes Given atypical chest pain, negative cardiac enzymes and recent stress test that showed only mild reversibility, recommend continuing management of COPD. The patient has been seen in conjunction with Dr. Hudson who agrees with the assessment and plan of care. Subjective Date of service: 06/26/16 Principal diagnosis: COPD exacerbation, atypical chest pain Interval history: The patient is resting in bed. She continue to c/o shortness of breath. Sinus rhythm on the monitor. Objective Last Vital Signs Temp 97.7 F 06/26/16 08:00 Pulse 96 H 06/26/16 08:21 Resp 18 06/26/16 08:21 BP 118/55 06/26/16 08:00 Pulse Ox 98 06/26/16 08:22 - Physical Examination General: No Apparent Distress HEENT: Positive: Normocephaly, Mucus Membranes Moist Neck: Positive: neck supple, trachea midline Cardiac: Positive: Reg Rate and Rhythm, S1/S2 Lungs: Positive: Wheezes Neuro: Positive: Grossly Intact Abdomen: Positive: Soft, Active Bowel Sounds. Negative: Tender Skin: Positive: Clear. Negative: Rash Extremities: Absent: edema - Labs and Meds Cardiac Enzymes 06/25/16 Range/Units 13:58 Lactate Dehydrogenase 119 (91-180) units/L CBC 06/25/16 Range/Units 07:03 WBC 10.5 (4.5-11.0) K/mm3 RBC 4.19 (3.65-5.03) M/mm3 Hgb 12.4 (10.1-14.3) gm/dl Hct 37.7 (30.3-42.9) % Plt Count 256 (140-440) K/mm3 Lymph # 1.9 (1.2-5.4) K/mm3 Dale # 0.5 (0.0-0.8) K/mm3 Eos # 0.0 (0.0-0.4) K/mm3 Baso # 0.0 (0.0-0.1) K/mm3 Comprehensive Metabolic Panel 06/25/16 Range/Units 04:00 Sodium 141 (137-145) mmol/L Potassium 4.7 (3.6-5.0) mmol/L Chloride 103.7 (98-107) mmol/L Carbon Dioxide 29 (22-30) mmol/L BUN 14 (7-17) mg/dL Creatinine 0.6 L (0.7-1.2) mg/dL Glucose 295 H (65-100) mg/dL Calcium 9.5 (8.4-10.2) mg/dL - Imaging and Cardiology EKG: image reviewed (normal sinus rhythm) - Telemetry EKG Rhythm: Sinus Rhythm - EKG Sinus rhythms and dysrhythmias: sinus rhythm
[2016-06-26] MEDS: ATIVAN PO PRN ×2 (12:33→21:54)
--- NOTE | 2016-06-26 16:28 | Progress Note ---
Assessment and Plan Assessment and plan: Patient is a 50 year old male with past medical hx of COPD, DM, HTN, bipolar, anxiety, Chronic pain, spinal fusion, o2 dependant previous CT of the chest concerning for adenopathy who presents to the ER will complain cough shortness of breath, cough, wheezing, chest tightness for the past 3 days. The patient states that she was recently seen at [facility] was subsequently discharged at that time recommendation to have a cardiac catheterization due to positive stress test but did not accept the result. She reports that on getting home her shortness of breath has progressively gotten worse. She also reports that she's been coughing and since then has developed a chest tightness. Which she describes as 4/10 in intensity with no radiation. Aggravated by cough. She is very emotional and afraid of any invasive cardiac workup * COPD exacerbation with possible acute viral bronchitis * Respiratory failure with acute on chronic hypoxia * Anxiety disorder * Depression * Atypical chest pain secondary to recurrent cough * Recurrent cough possible secondary to bronchitis * Morbid obesity BMI 53.6 * CAD * Diabetes mellitus Plan * Continue IV steroids anticipate escalation in a.m. will need prolonged oral taper * Continue nebulizer treatments * We'll add incentive spirometer * Discussed weight loss modality * Continue antidiabetic management initial elevation was likely secondary to steroids * Neurologic input noted and troponin is negative D dimer is negative stress test done 06/13/16 at [facility]: fixed inferior defect with slight reversibility in the setting of significant breast and diaphragm attenuation, EF 74% * DVT and GI prophylaxis * Anticipate discharge in a.m. * Plan discussed with the patient in detail History Interval history: Patient seen and examined today, mild distress, had audible wheeze stable at this point. Denies any chest pain reports generalized weakness not adverse events reported by nursing staff Hospitalist Physical - Physical exam Narrative exam: VITAL SIGNS: Reviewed. GENERAL: The patient appeared well nourished and normally developed. Vital signs as documented. HEAD: No signs of head trauma. EYES: Pupils are equal. Extraocular motions intact. EARS: Hearing grossly intact. MOUTH: Missing dentition. NECK: No adenopathy, no JVD. CHEST: Chest with bilateral expiratory wheeze CARDIAC: Regular rate and rhythm. S1 and S2, without murmurs, gallops, or rubs. VASCULAR: No Edema. Peripheral pulses normal and equal in all extremities. ABDOMEN: Soft, without detectable tenderness. No sign of distention. No rebound or guarding, and no masses palpated. Bowel Sounds normal. MUSCULOSKELETAL: Good range of motion of all major joints. Extremities without clubbing, cyanosis or edema. NEUROLOGIC EXAM: Awake but lethargic, oriented x 3. No focal sensory or strength deficits. Speech normal. Follows commands. PSYCHIATRIC: Mood emotional SKIN: No rash or lesions. - Constitutional Vitals: Temp Pulse Resp BP Pulse Ox 98.8 F 89 18 109/52 98 06/26/16 14:10 06/26/16 14:10 06/26/16 14:10 06/26/16 14:10 06/26/16 08:22 General appearance: Present: no acute distress, obese Results - Labs CBC & Chem 7: 06/25/16 07:03 06/25/16 04:00 Labs: Laboratory Last Values WBC 10.5 K/mm3 (4.5-11.0) 06/25/16 07:03 RBC 4.19 M/mm3 (3.65-5.03) 06/25/16 07:03 Hgb 12.4 gm/dl (10.1-14.3) 06/25/16 07:03 Hct 37.7 % (30.3-42.9) 06/25/16 07:03 MCV 90 fl (79-97) 06/25/16 07:03 MCH 30 pg (28-32) 06/25/16 07:03 MCHC 33 % (30-34) 06/25/16 07:03 RDW 14.3 % (13.2-15.2) 06/25/16 07:03 Plt Count 256 K/mm3 (140-440) 06/25/16 07:03 Lymph % (Auto) 18.6 % (13.4-35.0) 06/25/16 07:03 Todd % (Auto) 4.4 % (0.0-7.3) 06/25/16 07:03 Eos % (Auto) 0.1 % (0.0-4.3) 06/25/16 07:03 Baso % (Auto) 0.3 % (0.0-1.8) 06/25/16 07:03 Lymph # 1.9 K/mm3 (1.2-5.4) 06/25/16 07:03 Todd # 0.5 K/mm3 (0.0-0.8) 06/25/16 07:03 Eos # 0.0 K/mm3 (0.0-0.4) 06/25/16 07:03 Baso # 0.0 K/mm3 (0.0-0.1) 06/25/16 07:03 Seg Neutrophils % 76.6 % (40.0-70.0) H 06/25/16 07:03 Seg Neutrophils # 8.0 K/mm3 (1.8-7.7) H 06/25/16 07:03 PT 12.6 Sec. (12.2-14.9) 06/24/16 06:20 INR 0.95 (0.87-1.13) 06/24/16 06:20 D-Dimer < 135 ng/mlDDU (0-234) 06/24/16 06:20 Sodium 141 mmol/L (137-145) 06/25/16 04:00 Potassium 4.7 mmol/L (3.6-5.0) 06/25/16 04:00 Chloride 103.7 mmol/L (98-107) 06/25/16 04:00 Carbon Dioxide 29 mmol/L (22-30) 06/25/16 04:00 Anion Gap 13 mmol/L 06/25/16 04:00 BUN 14 mg/dL (7-17) 06/25/16 04:00 Creatinine 0.6 mg/dL (0.7-1.2) L 06/25/16 04:00 Estimated GFR > 60 ml/min 06/25/16 04:00 BUN/Creatinine Ratio 23.33 % 06/25/16 04:00 Glucose 295 mg/dL (65-100) H 06/25/16 04:00 POC Glucose 162 (70-105) H 06/26/16 07:42 Hemoglobin A1c 8.3 % (4-6) H 06/24/16 09:47 Calcium 9.5 mg/dL (8.4-10.2) 06/25/16 04:00 Lactate Dehydrogenase 119 units/L (91-180) 06/25/16 13:58 Total Creatine Kinase 48 units/L (30-135) 06/24/16 09:47 CK-MB (CK-2) 1.4 ng/mL (0.0-4.0) 06/24/16 09:47 CK-MB (CK-2) Rel Index 2.9 (0-4) 06/24/16 09:47 Troponin T < 0.010 ng/mL (0.00-0.029) 06/24/16 09:47 NT-Pro-B Natriuret Pep 10.62 pg/mL (0-900) 06/24/16 02:13 Triglycerides 88 mg/dL (2-149) 06/24/16 09:47 Cholesterol 224 mg/dL (50-199) H 06/24/16 09:47 LDL Cholesterol Direct 133 mg/dL (50-130) H 06/24/16 09:47 HDL Cholesterol 74 mg/dL (40-59) H 06/24/16 09:47 Cholesterol/HDL Ratio 3.02 % 06/24/16 09:47
[2016-06-26] MEDS: ZOCOR PO SCH (21:54)
[2016-06-27] MEDS: DUONEB 0.5 MG-3 MG/3 ML SOLN IH SCH ×2 (01:53→07:25)
[2016-06-27] MEDS: PULMICORT IH SCH (07:25)
[2016-06-27] MEDS: NOVOLOG SUB-Q SCH ×2 (08:14→12:15)
[2016-06-27 08:54] VITALS: BP 134/74
--- NOTE | 2016-06-27 08:56 | Hem/Onc Progress Note ---
Assessment and Plan ct from jan reviewed- had adenopathy. d/w Dr lezama- he will order another CT for comparison. if persists or worse, needs PET and bx Subjective Date of service: 06/27/16 Interval history: pt c/o sOB and chest tightness Objective - Constitutional Vitals: Last Vital Signs Temp 97.6 F 06/27/16 08:53 Pulse 70 06/27/16 08:53 Resp 16 06/27/16 08:53 BP 134/74 06/27/16 08:53 Pulse Ox 94 06/27/16 08:53 General appearance: mild distress Performance status: 3-limited selfcare - Neck Neck: supple - Respiratory Respiratory: bilateral: rhonchi - Cardiovascular Rhythm: regular - Labs Lab Results: Laboratory Results - last 24 hr 06/26/16 06/26/16 06/26/16 07:42 11:39 17:16 POC Glucose 162 H 169 H 165 H 06/26/16 06/27/16 21:48 07:20 POC Glucose 219 H 197 H
[2016-06-27] MEDS: celeXA PO SCH (09:26)
[2016-06-27] MEDS: MORPHINE PO SCH (09:26)
[2016-06-27] MEDS: ZESTRIL PO SCH (09:26)
[2016-06-27] MEDS: BABY ASPIRIN PO SCH (09:26)
--- NOTE | 2016-06-27 09:40 | Cat Scan Report ---
CT scan of chest without IV contrast: History: Shortness of breath, pulmonary adenopathy. Findings: No endobronchial or mediastinal mass. No mediastinal, hilar or axillary adenopathy. No pleural or pericardial effusion. Bibasilar ill-defined densities. Impression: Bibasilar ill-defined densities suggestive of subsegmental or discoid atelectasis and /or bilateral pneumonitis.
[2016-06-27] MEDS: ATIVAN PO PRN (09:53)
--- NOTE | 2016-06-27 10:05 | Progress Note ---
Assessment and Plan COPD exacerbation management per primary Atypical chest pain troponin negative x 2 BNP 10, d-dimer negative stress test done 06/13/16 at [facility] [place]: fixed inferior defect with slight reversibility in the setting of significant breast and diaphragm attenuation, EF 74% Hypertension stable continue lisinopril Diabetes Stable cardiac status. Continue management of COPD. Will see as needed. Follow up appointment with Dr. Hudson in the [place] office on 07/09/16 at 3: 00pm. The patient has been seen in conjunction with Dr. Hudson who agrees with the assessment and plan of care. Subjective Date of service: 06/27/16 Principal diagnosis: COPD exacerbation, atypical chest pain Interval history: The patient is resting in bed. She remains short of breath. Sinus rhythm on the monitor. Objective Last Vital Signs Temp 97.6 F 06/27/16 08:53 Pulse 70 06/27/16 08:53 Resp 16 06/27/16 08:53 BP 134/74 06/27/16 08:53 Pulse Ox 94 06/27/16 08:53 - Physical Examination General: No Apparent Distress HEENT: Positive: Normocephaly, Mucus Membranes Moist Neck: Positive: neck supple, trachea midline Cardiac: Positive: Reg Rate and Rhythm, S1/S2 Lungs: Positive: Wheezes Neuro: Positive: Grossly Intact Abdomen: Positive: Soft, Active Bowel Sounds. Negative: Tender Skin: Positive: Clear. Negative: Rash Extremities: Absent: edema - Imaging and Cardiology EKG: image reviewed (normal sinus rhythm) - Telemetry EKG Rhythm: Sinus Rhythm - EKG Sinus rhythms and dysrhythmias: sinus rhythm
--- NOTE | 2016-06-27 10:34 | Discharge Summary ---
Providers - Providers Date of Admission: 06/24/16 08:26 Date of discharge: 06/27/16 Attending physician: ASUNCION MERCADO MD 06/24/16 Consult to Cardiac Rehabilitation [CONS] Routine Reason For Exam: Phase I 06/24/16 08:52 Consult to Physician [CONS] Routine Consulting Provider: CONRADO GONZALEZ Reason For Exam: adenopathy on CT chest ?lymphoma Place consult to:: Dr. Gonzalez Notified:: Lurdes HERNANDEZ Phone number called:: Was contact made?: Yes If yes, spoke with:: [facility] Time called:: 17:30 06/26/16 16:24 Occupational Therapy Evaluate and Treat [CONS] Routine Comment: Reason For Exam: debility Physical Therapy Evaluation and Treat [CONS] Routine Comment: Reason For Exam: debility Primary care physician: NITIN KUHN Hospitalization Reason for admission: shortness of breath Condition: Stable Disposition: DC/TX HOME UNDER HOME HEALTH Time spent for discharge: 35 mins Core Measure Documentation - Palliative Care Palliative Care/ Comfort Measures: Not Applicable - Core Measures Any of the following diagnoses?: none - VTE Discharge Requirements Deep Vein Thrombosis/Pulmonary Embolism Present on Admission: No Exam - Physical Exam Narrative exam: VITAL SIGNS: Reviewed. GENERAL: The patient appeared well nourished and normally developed. Vital signs as documented. HEAD: No signs of head trauma. EYES: Pupils are equal. Extraocular motions intact. EARS: Hearing grossly intact. MOUTH: Missing dentition. NECK: No adenopathy, no JVD. CHEST: Chest with bilateral expiratory wheeze CARDIAC: Regular rate and rhythm. S1 and S2, without murmurs, gallops, or rubs. VASCULAR: No Edema. Peripheral pulses normal and equal in all extremities. ABDOMEN: Soft, without detectable tenderness. No sign of distention. No rebound or guarding, and no masses palpated. Bowel Sounds normal. MUSCULOSKELETAL: Good range of motion of all major joints. Extremities without clubbing, cyanosis or edema. NEUROLOGIC EXAM: Awake but lethargic, oriented x 3. No focal sensory or strength deficits. Speech normal. Follows commands. PSYCHIATRIC: Mood emotional SKIN: No rash or lesions. - Constitutional Vitals: Temp Pulse Resp BP Pulse Ox 97.6 F 83 16 134/74 94 06/27/16 08:53 06/27/16 10:23 06/27/16 08:53 06/27/16 08:53 06/27/16 08:53 Plan Activity: advance as tolerated, fall precautions Diet: low salt, diabetic Special Instructions: record daily BP diary, record blood sugar diary Durable Medical Equipment Needed Upon Discharge: Nebulizer Additional Instructions: Follow up with Dr Hudson- [employer] [facility] Follow up with: NITIN KUHN MD [Primary Care Provider] - 3-5 Days CONRADO GONZALEZ MD [Staff Physician] - 7 Days Prescriptions: Simvastatin [Zocor TAB] 40 mg PO QHS #30 tablet ALBUTEROL Inhaler [ProAir HFA Inhaler] 2 puff IH QID PRN 30 Days PRN Reason: Shortness Of Breath Arformoterol Nebu [Brovana Nebu] 15 mcg IH Q12HR 30 Days Budesonide [Pulmicort Respules] 0.5 mg IH Q12HRT #60 nebu
== END 2016-06-27 13:57 | disposition home health service (06) | DRG 189 ==
LOC: ED 00:42 → 4A 08:26
PROVIDERS: ADMIT Internal Medicine; ATTEND Internal Medicine
DX: J96.21 Acute and chronic respiratory failure with hypoxia (principal); J44.0 Chronic obstructive pulmonary disease with (acute) lower respiratory infection; Z68.42 Body mass index [BMI] 45.0-49.9, adult; E66.01 Morbid (severe) obesity due to excess calories; E11.9 Type 2 diabetes mellitus without complications; I10 Essential (primary) hypertension; F31.9 Bipolar disorder, unspecified; I25.10 Atherosclerotic heart disease of native coronary artery without angina pectoris; G89.29 Other chronic pain; R07.89 Other chest pain; M43.20 Fusion of spine, site unspecified; E78.5 Hyperlipidemia, unspecified; I11.0 Hypertensive heart disease with heart failure; I50.9 Heart failure, unspecified; J45.909 Unspecified asthma, uncomplicated; Z87.891 Personal history of nicotine dependence; Z98.890 Other specified postprocedural states; Z88.6 Allergy status to analgesic agent; Z88.0 Allergy status to penicillin; Z88.8 Allergy status to other drugs, medicaments and biological substances; Z79.4 Long term (current) use of insulin; Z79.82 Long term (current) use of aspirin
CPT/HCPCS: 36415; 71020; 71250; 80048; 80061; 82550; 82553; 82962; 83036; 83615; 83880; 84484; 85025; 85379; 85610; 93005; 93010; 94640; 94760; 96361; 96374; 96375; J1815; J1885; J2060; J2920; J2930; J7030

== ENCOUNTER 2016-07-10 16:58 | Inpatient (IN) | payer MEDICARE ==
[2016-07-10] MEDS ORDERED: PROVENTIL IH ONE ×2 (17:52→19:50)
[2016-07-10] MEDS ORDERED: ATROVENT IH ONE (17:52)
[2016-07-10] MEDS ORDERED: MAGNESIUM SULFATE 2GM/50ML 2 GM/50 ML BAG IV ONE (17:53)
[2016-07-10] MEDS ORDERED: ZOFRAN IV ONE (17:54)
[2016-07-10] MEDS ORDERED: MORPHINE IV ONE (17:54)
--- NOTE | 2016-07-10 18:19 | Emergency Department Report ---
ED Shortness of Breath HPI - General Chief Complaint: Dyspnea/Respdistress Stated Complaint: BREATHING PROBLEMS Time Seen by Provider: 07/10/16 17:46 Source: patient, EMS, old records reviewed (recent admission 06/14-06/27 reviewed) Mode of arrival: Stretcher Limitations: No Limitations - History of Present Illness Initial Comments: 50 year old female the past medical history asthma, COPD, CHF, diabetes, hypertension, psychiatric disorder and obesity presents hospital complaints of shortness of breath and cough 1 week. Cough productive of green sputum. Positive dyspnea on exertion. Patient complains of bilateral low rib and back pain with coughing and is moderate in intensity. Fever 101 at home. - Related Data Home Medications Medication Instructions Recorded Confirmed Last Taken Aspirin 81 mg PO DAILY 01/23/16 06/24/16 1 Day Ago 81 Citalopram Hydrobromide [celeXA] 40 mg PO DAILY 01/23/16 06/24/16 1 Day Ago 40 Insulin Lispro [HumaLOG VIAL] 10 units SQ AC 01/23/16 06/24/16 1 Day Ago 10 LORazepam [Ativan] 2 mg PO BID PRN 01/23/16 06/24/16 1 Day Ago 2 Lisinopril [Zestril TAB] 20 mg PO QDAY 01/23/16 06/24/16 1 Day Ago 20 Morphine [Morphine TAB] 15 mg PO BID 01/23/16 06/24/16 1 Day Ago 15 Olanzapine [OLANZapine] 10 mg PO QHS 01/23/16 06/24/16 1 Day Ago 10 Previous Rx's Medication Instructions Recorded Last Taken Type ALBUTEROL Inhaler [ProAir HFA 2 puff IH QID PRN 30 Days 06/27/16 Unknown Rx Inhaler] Arformoterol Nebu [Brovana Nebu] 15 mcg IH Q12HR 30 Days 06/27/16 Unknown Rx Budesonide [Pulmicort Respules] 0.5 mg IH Q12HRT #60 nebu 06/27/16 Unknown Rx Simvastatin [Zocor TAB] 40 mg PO QHS #30 tablet 06/27/16 Unknown Rx Allergies Allergy/AdvReac Type Severity Reaction Status Date / Time oxycodone HCl [From Percocet] Allergy Angioedema Verified 07/10/16 17:11 Penicillins Allergy Angioedema Verified 07/10/16 17:11 prednisone Allergy Unknown Verified 07/10/16 17:11 bupropion HCl AdvReac Unknown Verified 07/10/16 17:11 [From Wellbutrin] divalproex sodium AdvReac Unknown Verified 07/10/16 17:11 [From Depakote] fluoxetine HCl [From Prozac] AdvReac Unknown Verified 07/10/16 17:11 lithium AdvReac Unknown Verified 07/10/16 17:11 ED Review of Systems ROS: Stated complaint: BREATHING PROBLEMS Other details as noted in HPI Comment: All other systems reviewed and negative Other: Constitutional: as per hpi Eyes: No eye pain visual changes ENT: No ear pain or throat pain Neck: Denies pain Respiratory: as per hpi Cardiovascular: Denies palpitations, syncope GI: Denies abdominal pain, nausea, vomiting : Denies dysuria Musculoskeletal: Denies back pain, Skin: Denies rash, lesions, erythema Neurologic: Denies headache, numbness, weakness Psychiatric: Denies suicidal ideation, hallucinations ED Past Medical Hx - Past Medical History Previous Medical History?: Yes Hx Hypertension: Yes Hx Congestive Heart Failure: Yes Hx Diabetes: Yes Hx Psychiatric Treatment: Yes Hx Asthma: Yes Hx COPD: Yes Hx HIV: No - Surgical History Past Surgical History?: Yes Additional Surgical History: left hip - Social History Smoking Status: Current Every Day Smoker Substance Use Type: None - Medications Home Medications: Home Medications Medication Instructions Recorded Confirmed Last Taken Type Aspirin 81 mg PO DAILY 01/23/16 06/24/16 1 Day Ago History 81 Citalopram Hydrobromide [celeXA] 40 mg PO DAILY 01/23/16 06/24/16 1 Day Ago History 40 Insulin Lispro [HumaLOG VIAL] 10 units SQ AC 01/23/16 06/24/16 1 Day Ago History 10 LORazepam [Ativan] 2 mg PO BID PRN 01/23/16 06/24/16 1 Day Ago History 2 Lisinopril [Zestril TAB] 20 mg PO QDAY 01/23/16 06/24/16 1 Day Ago History 20 Morphine [Morphine TAB] 15 mg PO BID 01/23/16 06/24/16 1 Day Ago History 15 Olanzapine [OLANZapine] 10 mg PO QHS 01/23/16 06/24/16 1 Day Ago History 10 ALBUTEROL Inhaler [ProAir HFA 2 puff IH QID PRN 30 Days 06/27/16 Unknown Rx Inhaler] Arformoterol Nebu [Brovana Nebu] 15 mcg IH Q12HR 30 Days 06/27/16 Unknown Rx Budesonide [Pulmicort Respules] 0.5 mg IH Q12HRT #60 nebu 06/27/16 Unknown Rx Simvastatin [Zocor TAB] 40 mg PO QHS #30 tablet 06/27/16 Unknown Rx ED Physical Exam - General Limitations: No Limitations - Other Other exam information: General: No limitations, patient is alert in no acute distress Head exam: Atraumatic, normocephalic Eyes exam: Normal appearance ENT: Moist mucous membrane, normal oropharynx Neck exam: Normal inspection, full range of motion Respiratory exam: Expiratory wheezing, no tachypnea or accessory muscle use Cardiovascular: Normal rate and rhythm, lower rib tenderness Abdomen: Soft, nondistended, and nontender, with normal bowel sounds, no rebound, or guarding Extremity: Full range of motion normal inspection no deformity Back: Normal Inspection, full range of motion, no tenderness Neurologic: Alert, oriented x3, cranial nerves intact, no motor or sensory deficit Psychiatric: normal affect, normal mood Skin: Warm, dry, intact ED Course Vital Signs 07/10/16 07/10/16 07/10/16 17:03 17:11 17:16 Temperature 97.2 F L Pulse Rate 80 86 79 Pulse Rate [ Posterior Bilateral Upper Lobe] Respiratory 16 20 Rate Respiratory Rate [Posterior Bilateral Upper Lobe] Blood Pressure 112/54 O2 Sat by Pulse 98 97 97 Oximetry 07/10/16 07/10/16 07/10/16 17:30 18:00 18:01 Temperature 98.4 F Pulse Rate 94 H 75 Pulse Rate [ 77 Posterior Bilateral Upper Lobe] Respiratory 19 15 Rate Respiratory 20 Rate [Posterior Bilateral Upper Lobe] Blood Pressure 112/54 112/54 O2 Sat by Pulse 97 99 Oximetry 07/10/16 18:15 Temperature Pulse Rate Pulse Rate [ 78 Posterior Bilateral Upper Lobe] Respiratory Rate Respiratory 20 Rate [Posterior Bilateral Upper Lobe] Blood Pressure O2 Sat by Pulse Oximetry - Reevaluation(s) Reevaluation #1: 07/10/16 19:51 pt continue to have significant wheezing after nebs, steroids, and mag. Additional nebs ordered ED Medical Decision Making - Lab Data Result diagrams: 07/10/16 18:01 07/10/16 18:01 Lab Results 07/10/16 07/10/16 07/10/16 Range/Units 18:01 18:01 18:01 WBC 7.2 (4.5-11.0) K/mm3 RBC 4.35 (3.65-5.03) M/mm3 Hgb 12.8 (10.1-14.3) gm/dl Hct 39.3 (30.3-42.9) % MCV 90 (79-97) fl MCH 29 (28-32) pg MCHC 33 (30-34) % RDW 14.2 (13.2-15.2) % Plt Count 242 (140-440) K/mm3 Lymph % (Auto) 25.7 (13.4-35.0) % [place] % (Auto) 5.5 (0.0-7.3) % Eos % (Auto) 3.3 (0.0-4.3) % Baso % (Auto) 0.6 (0.0-1.8) % Lymph # 1.9 (1.2-5.4) K/mm3 [place] # 0.4 (0.0-0.8) K/mm3 Eos # 0.2 (0.0-0.4) K/mm3 Baso # 0.0 (0.0-0.1) K/mm3 Seg Neutrophils % 64.9 (40.0-70.0) % Seg Neutrophils # 4.7 (1.8-7.7) K/mm3 Sodium 149 H (137-145) mmol/L Potassium 4.8 (3.6-5.0) mmol/L Chloride 104.2 (98-107) mmol/L Carbon Dioxide 29 (22-30) mmol/L Anion Gap 21 mmol/L BUN 8 (7-17) mg/dL Creatinine 0.8 (0.7-1.2) mg/dL Estimated GFR > 60 ml/min BUN/Creatinine Ratio 10.00 % Glucose 167 H (65-100) mg/dL Calcium 10.3 H (8.4-10.2) mg/dL Total Creatine Kinase 65 (30-135) units/L CK-MB (CK-2) 1.2 (0.0-4.0) ng/mL CK-MB (CK-2) Rel Index 1.8 (0-4) Troponin T < 0.010 (0.00-0.029) ng/mL NT-Pro-B Natriuret Pep 111.2 (0-900) pg/mL - EKG Data -: EKG Interpreted by Me (nsr rate 77, no stemi, no t inv) - EKG Data When compared to previous EKG there are: previous EKG unavailable Interpretation: no acute changes (compared to 06/25/16) - Radiology Data Radiology results: image reviewed - Medical Decision Making Patient continued to have significant wheezing despite ED treatment. Additional nebs ordered. Azithromycin order. No infiltrate identified. Patient required admission to the hospital for further treatment of acute COPD exacerbation. - Differential Diagnosis copd, pneumonia, bronchitis, CHF Critical Care Time: No Critical care attestation.: If time is entered above; I have spent that time in minutes in the direct care of this critically ill patient, excluding procedure time. ED Disposition Clinical Impression: COPD exacerbation, Obesity, Oxygen dependent Disposition: OP ADMITTED IP TO THIS HOSP Is pt being admited?: Yes Condition: Stable Time of Disposition: 20:05 (Dr Fernandes/luke/hosp)
[2016-07-10 19:21] LABS: Basophils % (Auto) 0.6 % (0.0-1.8); Eosinophils % (Auto) 3.3 % (0.0-4.3); Hematocrit 39.3 % (30.3-42.9); Hemoglobin 12.8 gm/dl (10.1-14.3); Mean Corpuscular HGB Conc 33 % (30-34); Mean Corpuscular Hemoglobin 29 pg (28-32); Mean Corpuscular Volume 90 fl (79-97); Platelet Count 242 K/mm3 (140-440); Red Blood Count 4.35 M/mm3 (3.65-5.03); Red Cell Distribution Width 14.2 % (13.2-15.2); White Blood Count 7.2 K/mm3 (4.5-11.0)
[2016-07-10 19:29] LABS: Creatine Kinase MB 1.2 ng/mL (0.0-4.0)
[2016-07-10 19:30] LABS: Anion Gap 21 mmol/L; Blood Urea Nitrogen 8 mg/dL (7-17); Calcium 10.3 mg/dL (8.4-10.2); Carbon Dioxide 29 mmol/L (22-30); Chloride 104.2 mmol/L (98-107); Glucose 167 mg/dL (65-100); Potassium 4.8 mmol/L (3.6-5.0); Sodium 149 mmol/L (137-145)
[2016-07-10 19:33] LABS: Creatine Kinase 65 units/L (30-135)
[2016-07-10] MEDS ORDERED: ZITHROMAX 500 MG in NACL 0.9% 250ML 250 ML IV ONE (19:51)
[2016-07-10] MEDS ORDERED: DULCOLAX PR PRN (21:44)
[2016-07-10] MEDS ORDERED: MILK OF MAGNESIA PO PRN (21:44)
[2016-07-10] MEDS ORDERED: ZOFRAN IV PRN (21:44)
[2016-07-10] MEDS ORDERED: TYLENOL PO PRN (21:44)
--- NOTE | 2016-07-10 21:47 | History and Physical Report ---
History of Present Illness Date of examination: 07/10/16 History of present illness: 50-year-old woman with a history of hypertension, diabetes, COPD, coronary artery disease, bipolar, chronic pain comes emergency room with complaints of shortness of breath started today. Also complaining of cough productive of green phlegm, subjective fever, no chills Patient denies chest pain, palpitation, abdominal pain, hematochezia, dysuria, frequency, focal weakness, dysarthria, fever chills, polydipsia polyuria, hot or cold intolerance, easy bruisability, or rash or bleeding from mucosal membrane, rhinorrhea, epistaxis, earache, tinnitus, blurry vision, eye discharge , depression. Other review of systems negative PAST SURGICAL HISTORY: Hysterectomy, 2, spinal fusion SOCIAL HISTORY: Smoke 4 cigarettes a day, no alcohol or drugs FAMILY HISTORY: Hypertension Medications and Allergies Allergies Allergy/AdvReac Type Severity Reaction Status Date / Time oxycodone HCl [From Percocet] Allergy Angioedema Verified 07/10/16 17:11 Penicillins Allergy Angioedema Verified 07/10/16 17:11 prednisone Allergy Unknown Verified 07/10/16 17:11 bupropion HCl AdvReac Unknown Verified 07/10/16 17:11 [From Wellbutrin] divalproex sodium AdvReac Unknown Verified 07/10/16 17:11 [From Depakote] fluoxetine HCl [From Prozac] AdvReac Unknown Verified 07/10/16 17:11 lithium AdvReac Unknown Verified 07/10/16 17:11 Home Medications Medication Instructions Recorded Confirmed Last Taken Type Aspirin 81 mg PO DAILY 01/23/16 06/24/16 1 Day Ago History 81 Citalopram Hydrobromide [celeXA] 40 mg PO DAILY 01/23/16 06/24/16 1 Day Ago History 40 Insulin Lispro [HumaLOG VIAL] 10 units SQ AC 01/23/16 06/24/16 1 Day Ago History 10 LORazepam [Ativan] 2 mg PO BID PRN 01/23/16 06/24/16 1 Day Ago History 2 Lisinopril [Zestril TAB] 20 mg PO QDAY 01/23/16 06/24/16 1 Day Ago History 20 Morphine [Morphine TAB] 15 mg PO BID 01/23/16 06/24/16 1 Day Ago History 15 Olanzapine [OLANZapine] 10 mg PO QHS 01/23/16 06/24/16 1 Day Ago History 10 ALBUTEROL Inhaler [ProAir HFA 2 puff IH QID PRN 30 Days 06/27/16 Unknown Rx Inhaler] Arformoterol Nebu [Brovana Nebu] 15 mcg IH Q12HR 30 Days 06/27/16 Unknown Rx Budesonide [Pulmicort Respules] 0.5 mg IH Q12HRT #60 nebu 06/27/16 Unknown Rx Simvastatin [Zocor TAB] 40 mg PO QHS #30 tablet 06/27/16 Unknown Rx Active Meds: Active Medications Arformoterol Tartrate (Brovana Nebu) 15 mcg IH Q12HR VIC Aspirin (Baby Aspirin) 81 mg PO DAILY VIC Budesonide (Pulmicort) 0.5 mg IH Q12HRT VIC Lisinopril (Zestril) 20 mg PO QDAY VIC Lorazepam (Ativan) 2 mg PO BID PRN PRN Reason: Anxiety Miscellaneous Medication (Citalopram Hydrobromide [Celexa]) 40 mg PO DAILY VIC Miscellaneous Medication (Insulin Lispro [Humalog Vial]) 10 units SQ AC VIC Morphine Sulfate (Morphine) 30 mg PO Q4HR PRN PRN Reason: Pain Morphine Sulfate (Morphine) 15 mg PO BID VIC Olanzapine (Zyprexa) 10 mg PO QHS VIC Simvastatin (Zocor) 40 mg PO QHS VIC Exam - Physical Exam Narrative exam: Gen. appearance: Patient lying in bed, no apparent distress HEENT: Normocephalic, atraumatic, pupils equally round and reactive to light, extraocular movement intact, and no sclericterus,. No JVD or thyromegaly or nodule,neck supple, no carotid bruit ,mucous membranes moist, no exudate or erythema Heart: S1, S2, regular rate and rhythm Lungs: Wheezing bilaterally, breathing comfortable Abdomen: Positive bowel sounds, nontender, nondistended, no organomegaly Extremity: No edema, cyanosis, clubbing Skin: No rash, nodules, warm, dry Neuro: Oriented 3, cranial nerves II-12 intact, speech is fluent, motor and sensory intact - Constitutional Vitals: Temp Pulse Resp BP Pulse Ox 98.4 F 78 20 112/54 99 07/10/16 17:30 07/10/16 18:15 07/10/16 18:15 07/10/16 18:00 07/10/16 18:00 Results - Labs CBC & Chem 7: 07/10/16 18:01 07/10/16 18:01 Labs: Abnormal lab results 07/10/16 Range/Units 18:01 Sodium 149 H (137-145) mmol/L Glucose 167 H (65-100) mg/dL Calcium 10.3 H (8.4-10.2) mg/dL - Imaging and Cardiology EKG: image reviewed Chest x-ray: image reviewed Assessment and Plan COPD exacerbation with bronchitis Hypernatremia Hypertension Diabetes of 2 Coronary artery disease Bipolar Chronic pain Admit to medicine Start nebulizer treatment, a nail steroids, patient allergic to prednisone, hold IV steroids Start IV antibiotic, check fingersticks initiate insulin sliding scale Start IV fluid, monitor sodium level Continue appropriate outpatient medications, start DVT prophylaxis
[2016-07-10] MEDS ORDERED: D50W (25GM) IV PRN (22:17)
[2016-07-10] MEDS: D5/0.45NS 1,000 ML IV SCH (22:45)
[2016-07-10] MEDS: MORPHINE PO SCH (22:49)
[2016-07-10] MEDS: ZOCOR PO SCH (22:50)
[2016-07-11] MEDS: DUONEB 0.5 MG-3 MG/3 ML SOLN IH SCH ×4 (01:43→20:38)
[2016-07-11] MEDS: BROVANA NEBU IH SCH ×3 (01:48→20:38)
[2016-07-11] MEDS: D5/0.45NS 1,000 ML IV SCH ×2 (06:02→21:33)
[2016-07-11 06:51] LABS: Basophils % (Auto) 0.4 % (0.0-1.8); Eosinophils % (Auto) 0.2 % (0.0-4.3); Hemoglobin 12.2 gm/dl (10.1-14.3); Mean Corpuscular HGB Conc 32 % (30-34); Mean Corpuscular Hemoglobin 29 pg (28-32); Mean Corpuscular Volume 92 fl (79-97); Platelet Count 252 K/mm3 (140-440); Red Blood Count 4.16 M/mm3 (3.65-5.03); Red Cell Distribution Width 14.4 % (13.2-15.2); White Blood Count 8.3 K/mm3 (4.5-11.0)
[2016-07-11 07:02] LABS: Anion Gap 20 mmol/L; Blood Urea Nitrogen 10 mg/dL (7-17); Calcium 9.1 mg/dL (8.4-10.2); Carbon Dioxide 27 mmol/L (22-30); Chloride 98.6 mmol/L (98-107); Glucose 358 mg/dL (65-100); Potassium 5.2 mmol/L (3.6-5.0); Sodium 140 mmol/L (137-145)
--- NOTE | 2016-07-11 07:29 | XRay Report ---
Single view chest: History: Shortness of breath, cough. Findings: Borderline cardiomegaly. Trachea is midline. No consolidation, pneumothorax or pleural effusion. Linear density left lower lobe probably suggestive discoid atelectasis or scarring. Not seen previously dated 06/14/16. Impression: Linear density left lower lobe may be related to discoid atelectasis or scarring
[2016-07-11] MEDS ORDERED: INSULIN LISPRO 10 UNIT SQ SCH (07:30)
[2016-07-11] MEDS ORDERED: KIONEX PO ONE (07:40)
[2016-07-11] MEDS: NOVOLOG SUB-Q SCH ×7 (08:21→22:05)
[2016-07-11] MEDS: PULMICORT IH SCH ×2 (08:34→20:38)
--- NOTE | 2016-07-11 08:48 | Admit Criteria Form ---
Admission Criteria Documentation: COPD Clinical Indications for Admission to Inpatient Care (Place 'X' for any and all applicable criteria): Admission is indicated for ANY ONE of the following (1)(2)(3): [ ]I. Acute exacerbation by high-risk comorbidity (e.g., pneumonia, dysrhythmia, heart failure, pleural effusion, pneumothorax) or severe underlying COPD (e.g., steroid dependent) [ X]II. Inpatient admission required rather than observation care (see Chronic Obstructive Pulmonary Disease: Observation Care) because of ANY ONE of the following: [X ]a) New or pre-existing signs or symptoms of COPD (eg, dyspnea or Tachypnea at rest or with minimal activity) that persist despite outpatient and observation care treatment [ ]b) New-onset hypoxemia (room air SaO2 less than 90%, PO2 less than 60 mm Hg (8.0 kPa)) that persists despite outpatient and observation care treatment [ ]c) Worsening of pre-existing hypoxemia (eg, new or increased requirement for supplemental oxygen to maintain oxygenation at baseline level) that persists despite outpatient and observation care treatment, with oxygen treatment needs performable only in acute inpatient setting [ ]d) Hypercarbia (PCO2 greater than 40 mm Hg (5.3 kPa))-induced respiratory acidosis (pH less than 7.35) that persists despite outpatient and observation care treatment [ ]e) Supplemental oxygen or respiratory treatments for over 24 hours that are performable only in acute inpatient setting [ ]f) Chest tube placement with active evacuation (e.g., suction, drainage) (5) [ ]g) Other condition, treatment or monitoring requiring inpatient admission [ ]III. Planned invasive surgical or diagnostic procedures requiring acute- care hospitalization [ ]IV. Acute respiratory failure (e.g., uncompensated hypercarbia, severe hypoxemia) [ ]V. Severe comorbid condition (e.g., severe steroid myopathy, acute vertebral fracture) that has acutely worsened pulmonary function [ ]. Confusion state, lethargy, obtundation, stupor or coma Extended stay beyond goal length of stay may be needed for (31)(32): [ ]a ) Respiratory Failure. [ ]b) Severe or persisting hypoxemia or hypercarbia [ ]c) Severe or persistent dyspnea [ ]d) Comorbidities (e.g. chronic heart failure, atrial fibrillation with rapid response, pneumonia) [ ]e) Malnutrition The original [facility] content created by [facility] has been revised. The portions of the content which have been revised are identified through the use of italic text or in bold, and [facility] has neither reviewed nor approved the modified material. All other unmodified content is copyright [facility]. Please see references footnoted in the original [facility] edition 2016 Admission Criteria Met: Yes
[2016-07-11] MEDS: ZESTRIL PO SCH (09:47)
[2016-07-11] MEDS: MORPHINE PO SCH ×2 (09:47→21:26)
[2016-07-11] MEDS: celeXA PO SCH (09:48)
[2016-07-11] MEDS: BABY ASPIRIN PO SCH (09:48)
[2016-07-11] MEDS ORDERED: NON-FORMULARY (Citalopram Hydrobromide [Celexa] 40 MG) PO SCH (10:00)
--- NOTE | 2016-07-11 11:38 | Progress Note ---
Assessment and Plan Assessment and plan: Acute on chronic respiratory failure due to COPD excaerbation. Continue oxygen supplementation. COPD exacerbation. On steroids, Duoneb, Oxygen Diabetes mellitus type 2. fingerstick glucose Qac and hs. On Insulin Coronary artery disease. Stable. No chest pain, no shortness of breath Hypertension. BP stable Hyperlipidemia. Continue Zocor Bipolar disorder on Celexa. DVT prophylaxis Lovenox Full CODE STATUS History Interval history: Still having shortness of breath, no chest pain Hospitalist Physical - Physical exam Narrative exam: Gen. appearance: not in acute distress,morbidly obese HEENT: Normocephalic atraumatic, Neck: supple , no JVD Lungs: decreased breath sounds bilaterally, bilateral rhonchi, wheeze Heart: S1-S2 regular, no murmurs, rubs or gallop Abdomen:soft, non-tender, non-distended, normal bowel sounds Ext: No edema, no clubbing or cyanosis, Neuro : Awake alert oriented 3, no focal neurologic signs Psychiatry: normal mood Skin: no rashes - Constitutional Vitals: Temp Pulse Resp BP Pulse Ox 97.4 F L 89 20 137/80 95 07/11/16 08:00 07/11/16 08:44 07/11/16 08:44 07/11/16 08:00 07/11/16 08:34 Results - Labs CBC & Chem 7: 07/11/16 05:41 07/12/16 04:22 Labs: Laboratory Last Values WBC 8.3 K/mm3 (4.5-11.0) 07/11/16 05:41 RBC 4.16 M/mm3 (3.65-5.03) 07/11/16 05:41 Hgb 12.2 gm/dl (10.1-14.3) 07/11/16 05:41 Hct 38.0 % (30.3-42.9) 07/11/16 05:41 MCV 92 fl (79-97) 07/11/16 05:41 MCH 29 pg (28-32) 07/11/16 05:41 MCHC 32 % (30-34) 07/11/16 05:41 RDW 14.4 % (13.2-15.2) 07/11/16 05:41 Plt Count 252 K/mm3 (140-440) 07/11/16 05:41 Lymph % (Auto) 11.4 % (13.4-35.0) L 07/11/16 05:41 [place] % (Auto) 3.6 % (0.0-7.3) 07/11/16 05:41 Eos % (Auto) 0.2 % (0.0-4.3) 07/11/16 05:41 Baso % (Auto) 0.4 % (0.0-1.8) 07/11/16 05:41 Lymph # 1.0 K/mm3 (1.2-5.4) L 07/11/16 05:41 [place] # 0.3 K/mm3 (0.0-0.8) 07/11/16 05:41 Eos # 0.0 K/mm3 (0.0-0.4) 07/11/16 05:41 Baso # 0.0 K/mm3 (0.0-0.1) 07/11/16 05:41 Seg Neutrophils % 84.4 % (40.0-70.0) H 07/11/16 05:41 Seg Neutrophils # 7.0 K/mm3 (1.8-7.7) 07/11/16 05:41 Sodium 140 mmol/L (137-145) D 07/11/16 05:41 Potassium 5.2 mmol/L (3.6-5.0) H 07/11/16 05:41 Chloride 98.6 mmol/L (98-107) 07/11/16 05:41 Carbon Dioxide 27 mmol/L (22-30) 07/11/16 05:41 Anion Gap 20 mmol/L 07/11/16 05:41 BUN 10 mg/dL (7-17) 07/11/16 05:41 Creatinine 0.8 mg/dL (0.7-1.2) 07/11/16 05:41 Estimated GFR > 60 ml/min 07/11/16 05:41 BUN/Creatinine Ratio 12.50 % 07/11/16 05:41 Glucose 358 mg/dL (65-100) H 07/11/16 05:41 Calcium 9.1 mg/dL (8.4-10.2) 07/11/16 05:41 Total Creatine Kinase 65 units/L (30-135) 07/10/16 18:01 CK-MB (CK-2) 1.2 ng/mL (0.0-4.0) 07/10/16 18:01 CK-MB (CK-2) Rel Index 1.8 (0-4) 07/10/16 18: Troponin T < 0.010 ng/mL (0.00-0.029) 07/10/16 18: NT-Pro-B Natriuret Pep 111.2 pg/mL (0-900) 07/10/16 18:01
[2016-07-11] MEDS: MORPHINE PO PRN (17:35)
[2016-07-11] MEDS: ZITHROMAX 500 MG in NACL 0.9% 250ML 250 ML IV SCH (21:21)
[2016-07-11] MEDS: TESSALON PERLES PO SCH (21:26)
[2016-07-11] MEDS: ZOCOR PO SCH (21:26)
[2016-07-12] MEDS: DUONEB 0.5 MG-3 MG/3 ML SOLN IH SCH ×4 (01:34→19:52)
[2016-07-12] MEDS: TESSALON PERLES PO SCH ×4 (04:37→21:22)
[2016-07-12] MEDS: ATIVAN PO PRN ×2 (04:37→18:19)
[2016-07-12 05:44] LABS: Anion Gap 14 mmol/L; BUN/Creatinine Ratio 11.66; Blood Urea Nitrogen 7 mg/dL (7-17); Calcium 8.9 mg/dL (8.4-10.2); Carbon Dioxide 30 mmol/L (22-30); Chloride 99.9 mmol/L (98-107); Glucose 310 mg/dL (65-100); Potassium 4.2 mmol/L (3.6-5.0); Sodium 140 mmol/L (137-145)
[2016-07-12] MEDS: PULMICORT IH SCH ×2 (08:04→19:52)
[2016-07-12] MEDS: BROVANA NEBU IH SCH ×2 (08:04→19:52)
[2016-07-12] MEDS: MORPHINE PO SCH ×2 (10:31→21:23)
[2016-07-12] MEDS: BABY ASPIRIN PO SCH (10:31)
[2016-07-12] MEDS: celeXA PO SCH (10:32)
[2016-07-12] MEDS: ZESTRIL PO SCH (10:32)
[2016-07-12] MEDS: NOVOLOG SUB-Q SCH ×7 (10:32→21:24)
--- NOTE | 2016-07-12 10:56 | Discharge Summary ---
Providers - Providers Date of Admission: 07/10/16 20:29 Attending physician: GLORY FLEMING Primary care physician: GENTRY PEREZ MD Hospitalization Condition: Stable Disposition: STILL A PATIENT Core Measure Documentation - Palliative Care Palliative Care/ Comfort Measures: Not Applicable Exam - Constitutional Vitals: Temp Pulse Resp BP Pulse Ox 97.9 F 69 24 128/79 98 07/12/16 09:27 07/12/16 09:27 07/12/16 09:27 07/12/16 09:27 07/12/16 09:27 Plan Follow up with: GENTRY PEREZ MD [Primary Care Provider] - 3-5 Days
--- NOTE | 2016-07-12 12:22 | Progress Note ---
Assessment and Plan Assessment and plan: Acute on chronic respiratory failure due to COPD excaerbation. Continue oxygen supplementation. COPD exacerbation. On steroids, Duoneb, Oxygen. Probably discharge home in next 1-2 days Diabetes mellitus type 2. fingerstick glucose Qac and hs. On Insulin. Blood glucose is uncontrolled. We'll increase dose of insulin. Coronary artery disease. Stable. No chest pain, no shortness of breath Hypertension. BP stable Hyperlipidemia. Continue Zocor Bipolar disorder on Celexa. DVT prophylaxis Lovenox Full CODE STATUS History Interval history: Still having shortness of breath, no chest pain Hospitalist Physical - Physical exam Narrative exam: Gen. appearance: not in acute distress,morbidly obese HEENT: Normocephalic atraumatic, Neck: supple , no JVD Lungs: decreased breath sounds bilaterally, bilateral rhonchi, wheeze Heart: S1-S2 regular, no murmurs, rubs or gallop Abdomen:soft, non-tender, non-distended, normal bowel sounds Ext: No edema, no clubbing or cyanosis, Neuro : Awake alert oriented 3, no focal neurologic signs Psychiatry: normal mood Skin: no rashes - Constitutional Vitals: Temp Pulse Resp BP Pulse Ox 97.9 F 69 24 128/79 98 07/12/16 09:27 07/12/16 09:27 07/12/16 09:27 07/12/16 09:27 07/12/16 09:27 Results - Labs CBC & Chem 7: 07/11/16 05:41 07/12/16 04:22 Labs: Laboratory Last Values WBC 8.3 K/mm3 (4.5-11.0) 07/11/16 05:41 RBC 4.16 M/mm3 (3.65-5.03) 07/11/16 05:41 Hgb 12.2 gm/dl (10.1-14.3) 07/11/16 05:41 Hct 38.0 % (30.3-42.9) 07/11/16 05:41 MCV 92 fl (79-97) 07/11/16 05:41 MCH 29 pg (28-32) 07/11/16 05:41 MCHC 32 % (30-34) 07/11/16 05:41 RDW 14.4 % (13.2-15.2) 07/11/16 05:41 Plt Count 252 K/mm3 (140-440) 07/11/16 05:41 Lymph % (Auto) 11.4 % (13.4-35.0) L 07/11/16 05:41 [place] % (Auto) 3.6 % (0.0-7.3) 07/11/16 05:41 Eos % (Auto) 0.2 % (0.0-4.3) 07/11/16 05:41 Baso % (Auto) 0.4 % (0.0-1.8) 07/11/16 05:41 Lymph # 1.0 K/mm3 (1.2-5.4) L 07/11/16 05:41 [place] # 0.3 K/mm3 (0.0-0.8) 07/11/16 05:41 Eos # 0.0 K/mm3 (0.0-0.4) 07/11/16 05:41 Baso # 0.0 K/mm3 (0.0-0.1) 07/11/16 05:41 Seg Neutrophils % 84.4 % (40.0-70.0) H 07/11/16 05:41 Seg Neutrophils # 7.0 K/mm3 (1.8-7.7) 07/11/16 05:41 Sodium 140 mmol/L (137-145) 07/12/16 04:22 Potassium 4.2 mmol/L (3.6-5.0) 07/12/16 04:22 Chloride 99.9 mmol/L (98-107) 07/12/16 04:22 Carbon Dioxide 30 mmol/L (22-30) 07/12/16 04:22 Anion Gap 14 mmol/L 07/12/16 04:22 BUN 7 mg/dL (7-17) 07/12/16 04:22 Creatinine 0.6 mg/dL (0.7-1.2) L 07/12/16 04:22 Estimated GFR > 60 ml/min 07/12/16 04:22 BUN/Creatinine Ratio 11.66 % 07/12/16 04:22 Glucose 310 mg/dL (65-100) H 07/12/16 04:22 POC Glucose 199 (70-105) H 07/11/16 20:59 Calcium 8.9 mg/dL (8.4-10.2) 07/12/16 04:22 Total Creatine Kinase 65 units/L (30-135) 07/10/16 18:01 CK-MB (CK-2) 1.2 ng/mL (0.0-4.0) 07/10/16 18:01 CK-MB (CK-2) Rel Index 1.8 (0-4) 07/10/16 18:01 Troponin T < 0.010 ng/mL (0.00-0.029) 07/10/16 18:01 NT-Pro-B Natriuret Pep 111.2 pg/mL (0-900) 07/10/16 18:01
[2016-07-12] MEDS: MORPHINE PO PRN (13:04)
[2016-07-12] MEDS: ZITHROMAX 500 MG in NACL 0.9% 250ML 250 ML IV SCH (21:18)
[2016-07-12] MEDS: ZOCOR PO SCH (21:23)
[2016-07-12] MEDS: LOVENOX SUB-Q SCH (21:24)
[2016-07-13] MEDS: DUONEB 0.5 MG-3 MG/3 ML SOLN IH SCH ×4 (02:45→19:41)
[2016-07-13] MEDS: TESSALON PERLES PO SCH ×3 (05:19→22:11)
[2016-07-13] MEDS: ATIVAN PO PRN ×2 (05:19→18:29)
[2016-07-13] MEDS: BROVANA NEBU IH SCH ×2 (08:42→19:41)
[2016-07-13] MEDS: PULMICORT IH SCH ×2 (08:42→19:41)
--- NOTE | 2016-07-13 11:09 | Progress Note ---
Assessment and Plan Assessment and plan: Acute on chronic respiratory failure due to COPD excaerbation. Continue oxygen supplementation. COPD exacerbation. Continue slumedrol, Duoneb, Oxygen. She feels better but still has wheezing .Probably discharge home tomorrow Diabetes mellitus type 2. fingerstick glucose Qac and hs. On Insulin. Blood glucose is uncontrolled. Further increase dose of insulin. Coronary artery disease. Stable. No chest pain, no shortness of breath Hypertension. BP stable Hyperlipidemia. Continue Zocor Bipolar disorder on Celexa. DVT prophylaxis Lovenox Full CODE STATUS History Interval history: less shortness of breath, no chest pain Hospitalist Physical - Physical exam Narrative exam: Gen. appearance: not in acute distress,morbidly obese HEENT: Normocephalic atraumatic, Neck: supple , no JVD Lungs: decreased breath sounds bilaterally, bilateral rhonchi, wheeze Heart: S1-S2 regular, no murmurs, rubs or gallop Abdomen:soft, non-tender, non-distended, normal bowel sounds Ext: No edema, no clubbing or cyanosis, Neuro : Awake alert oriented 3, no focal neurologic signs Psychiatry: normal mood Skin: no rashes - Constitutional Vitals: Temp Pulse Resp BP Pulse Ox 98.0 F 92 H 18 149/77 94 07/13/16 07:40 07/13/16 08:53 07/13/16 08:53 07/13/16 07:40 07/13/16 08:40 Results - Labs CBC & Chem 7: 07/11/16 05:41 07/12/16 04:22 Labs: Laboratory Last Values WBC 8.3 K/mm3 (4.5-11.0) 07/11/16 05:41 RBC 4.16 M/mm3 (3.65-5.03) 07/11/16 05:41 Hgb 12.2 gm/dl (10.1-14.3) 07/11/16 05:41 Hct 38.0 % (30.3-42.9) 07/11/16 05:41 MCV 92 fl (79-97) 07/11/16 05:41 MCH 29 pg (28-32) 07/11/16 05:41 MCHC 32 % (30-34) 07/11/16 05:41 RDW 14.4 % (13.2-15.2) 07/11/16 05:41 Plt Count 252 K/mm3 (140-440) 07/11/16 05:41 Lymph % (Auto) 11.4 % (13.4-35.0) L 07/11/16 05:41 [place] % (Auto) 3.6 % (0.0-7.3) 07/11/16 05:41 Eos % (Auto) 0.2 % (0.0-4.3) 07/11/16 05:41 Baso % (Auto) 0.4 % (0.0-1.8) 07/11/16 05:41 Lymph # 1.0 K/mm3 (1.2-5.4) L 07/11/16 05:41 [place] # 0.3 K/mm3 (0.0-0.8) 07/11/16 05:41 Eos # 0.0 K/mm3 (0.0-0.4) 07/11/16 05:41 Baso # 0.0 K/mm3 (0.0-0.1) 07/11/16 05:41 Seg Neutrophils % 84.4 % (40.0-70.0) H 07/11/16 05:41 Seg Neutrophils # 7.0 K/mm3 (1.8-7.7) 07/11/16 05:41 Sodium 140 mmol/L (137-145) 07/12/16 04:22 Potassium 4.2 mmol/L (3.6-5.0) 07/12/16 04:22 Chloride 99.9 mmol/L (98-107) 07/12/16 04:22 Carbon Dioxide 30 mmol/L (22-30) 07/12/16 04:22 Anion Gap 14 mmol/L 07/12/16 04:22 BUN 7 mg/dL (7-17) 07/12/16 04:22 Creatinine 0.6 mg/dL (0.7-1.2) L 07/12/16 04:22 Estimated GFR > 60 ml/min 07/12/16 04:22 BUN/Creatinine Ratio 11.66 % 07/12/16 04:22 Glucose 310 mg/dL (65-100) H 07/12/16 04:22 POC Glucose 323 (70-105) H 07/12/16 20:20 Calcium 8.9 mg/dL (8.4-10.2) 07/12/16 04:22 Total Creatine Kinase 65 units/L (30-135) 07/10/16 18:01 CK-MB (CK-2) 1.2 ng/mL (0.0-4.0) 07/10/16 18:01 CK-MB (CK-2) Rel Index 1.8 (0-4) 07/10/16 18:01 Troponin T < 0.010 ng/mL (0.00-0.029) 07/10/16 18:01 NT-Pro-B Natriuret Pep 111.2 pg/mL (0-900) 07/10/16 18:01
[2016-07-13] MEDS: NOVOLOG SUB-Q SCH ×7 (11:11→22:11)
[2016-07-13] MEDS: celeXA PO SCH (13:50)
[2016-07-13] MEDS: ZESTRIL PO SCH (13:51)
[2016-07-13] MEDS: BABY ASPIRIN PO SCH (13:51)
[2016-07-13] MEDS: MORPHINE PO SCH ×2 (13:52→22:12)
[2016-07-13] MEDS: MORPHINE PO PRN (19:53)
[2016-07-13] MEDS: LOVENOX SUB-Q SCH (22:10)
[2016-07-13] MEDS: ZITHROMAX 500 MG in NACL 0.9% 250ML 250 ML IV SCH (22:10)
[2016-07-13] MEDS: ZOCOR PO SCH (22:11)
[2016-07-14] MEDS ORDERED: LEVEMIR SUB-Q ONE (00:01)
[2016-07-14] MEDS: DUONEB 0.5 MG-3 MG/3 ML SOLN IH SCH ×4 (01:36→13:48)
[2016-07-14] MEDS: TESSALON PERLES PO SCH ×2 (05:06→14:20)
[2016-07-14] MEDS: ATIVAN PO PRN ×2 (05:06→16:58)
[2016-07-14] MEDS: BROVANA NEBU IH SCH (08:23)
[2016-07-14] MEDS: PULMICORT IH SCH (08:24)
[2016-07-14] MEDS: NOVOLOG SUB-Q SCH ×5 (09:16→14:40)
[2016-07-14] MEDS: celeXA PO SCH (09:17)
[2016-07-14] MEDS: BABY ASPIRIN PO SCH (09:17)
[2016-07-14] MEDS: MORPHINE PO SCH (09:17)
[2016-07-14] MEDS: ZESTRIL PO SCH (09:18)
--- NOTE | 2016-07-14 10:19 | Discharge Summary ---
Providers - Providers Date of Admission: 07/10/16 20:29 Date of discharge: 07/14/16 Attending physician: GLORY FLEMING Primary care physician: [employer]INE [employer]CH[employer]IC Hospitalization Condition: Good Disposition: DISCHARGED TO HOME OR SELFCARE - Discharge Diagnoses (1) Acute on chronic respiratory failure with hypoxia Status: Acute (2) COPD exacerbation Status: Acute (3) Oxygen dependent Status: Chronic (4) HTN (hypertension) Status: Chronic Qualifiers: Hypertension type: H (5) Diabetes mellitus type 2 in obese Status: Chronic (6) Morbid obesity with BMI of 50.0-59.9, adult Status: Acute Core Measure Documentation - Palliative Care Palliative Care/ Comfort Measures: Not Applicable - Core Measures Any of the following diagnoses?: none Exam - Constitutional Vitals: Temp Pulse Resp BP Pulse Ox 98.3 F 78 18 123/64 96 07/14/16 08:00 07/14/16 08:24 07/14/16 08:24 07/14/16 08:00 07/14/16 08:25 Plan Activity: no restrictions Diet: low fat, low cholesterol, low salt, diabetic Additional Instructions: 1.Follow up with primary care physician in one week. 2.Follow up with [facility] in 1 week. Follow up with: PRIMARY CARE, [Primary Care Provider] - 3-5 Days Prescriptions: Azithromycin [Zithromax TAB] 250 mg PO QDAY #3 tablet Benzonatate [Tessalon Perles] 200 mg PO Q8HR PRN #30 capsule PRN Reason: Cough Insulin Aspart [NovoLOG Flexpen] 14 units SQ AC #1 pen Prednisone [predniSONE 5 mg (6-Day Pack, 21 Tabs)] 5 mg PO .TAPER #1 tab.ds.pk
[2016-07-14] MEDS: MORPHINE PO PRN (14:31)
[2016-07-14 18:29] VITALS: BP 129/65
== END 2016-07-14 18:27 | disposition home or self-care (01) | DRG 189 ==
LOC: ED 16:58 → 4A 20:29
PROVIDERS: ADMIT Internal Medicine; ATTEND Internal Medicine
PROC: 5A09357 Assistance with Respiratory Ventilation, Less than 24 Consecutive Hours, Continuous Positive Airway Pressure (ICD-10-PCS; principal; 2016-07-10)
DX: J96.21 Acute and chronic respiratory failure with hypoxia (principal); J44.1 Chronic obstructive pulmonary disease with (acute) exacerbation; E87.0 Hyperosmolality and hypernatremia; Z68.43 Body mass index [BMI] 50.0-59.9, adult; E11.9 Type 2 diabetes mellitus without complications; I25.10 Atherosclerotic heart disease of native coronary artery without angina pectoris; F31.9 Bipolar disorder, unspecified; J45.909 Unspecified asthma, uncomplicated; I11.0 Hypertensive heart disease with heart failure; I50.9 Heart failure, unspecified; F17.210 Nicotine dependence, cigarettes, uncomplicated; G89.29 Other chronic pain; E66.01 Morbid (severe) obesity due to excess calories; Z79.4 Long term (current) use of insulin; Z88.0 Allergy status to penicillin; Z90.710 Acquired absence of both cervix and uterus; Z79.82 Long term (current) use of aspirin; Z99.81 Dependence on supplemental oxygen; Z79.899 Other long term (current) drug therapy; Z98.1 Arthrodesis status; Z88.8 Allergy status to other drugs, medicaments and biological substances
CPT/HCPCS: 36415; 71010; 80048; 82550; 82553; 82962; 83880; 84484; 85025; 93005; 93010; 94640; 94660; 94760; 96374; 96375; 99406; J0456; J1650; J1815; J1818; J2270; J2405; J2930; J3475; J7050

== ENCOUNTER 2016-08-11 21:56 | Inpatient (IN) | payer MEDICARE ==
[2016-08-11] MEDS ORDERED: MAGNESIUM SULFATE 2GM/50ML 2 GM/50 ML BAG IV ONE (22:37)
[2016-08-11] MEDS ORDERED: MUCINEX ER PO ONE (22:37)
[2016-08-11] MEDS ORDERED: TESSALON PERLES PO ONE (22:37)
[2016-08-11] MEDS ORDERED: BENADRYL IV ONE (22:38)
[2016-08-11 23:03] LABS: Hematocrit 38.9 % (30.3-42.9); Hemoglobin 13.1 gm/dl (10.1-14.3); Mean Corpuscular HGB Conc 34 % (30-34); Mean Corpuscular Hemoglobin 30 pg (28-32); Mean Corpuscular Volume 90 fl (79-97); Platelet Count 235 K/mm3 (140-440); Red Blood Count 4.34 M/mm3 (3.65-5.03); Red Cell Distribution Width 13.1 % (13.2-15.2); White Blood Count 9.1 K/mm3 (4.5-11.0)
[2016-08-11 23:26] LABS: Anion Gap 17 mmol/L; BUN/Creatinine Ratio 12.85; Blood Urea Nitrogen 9 mg/dL (7-17); Calcium 9.3 mg/dL (8.4-10.2); Carbon Dioxide 28 mmol/L (22-30); Chloride 96.4 mmol/L (98-107); Glucose 279 mg/dL (65-100); Sodium 137 mmol/L (137-145)
[2016-08-11] MEDS: DUONEB 0.5 MG-3 MG/3 ML SOLN IH ONE ×2 (23:30→23:35)
[2016-08-11] MEDS ORDERED: ATIVAN IV ONE (23:50)
--- NOTE | 2016-08-12 00:36 | Emergency Department Report ---
HPI - General Chief Complaint: Dyspnea/Respdistress Time Seen by Provider: 08/11/16 22:11 - HPI HPI: The patient is a 51-year-old with a history of COPD, female who presents for evaluation of dyspnea. The patient reports recurrence of dyspnea and cough for the past 4-5 hours, constant, severe, exacerbated with exertion and lying flat. She states that her cough has been productive of thick yellow sputum. The patient denies chest pain, syncope, hemoptysis, hematemesis, unilateral leg swelling, recent immobilization. ED Past Medical Hx - Past Medical History Hx Hypertension: Yes Hx Congestive Heart Failure: Yes Hx Diabetes: Yes Hx Psychiatric Treatment: Yes Hx Asthma: Yes Hx COPD: Yes Hx HIV: No - Surgical History Additional Surgical History: left hip - Social History Smoking Status: Current Every Day Smoker - Medications Home Medications: Home Medications Medication Instructions Recorded Confirmed Last Taken Type Aspirin 81 mg PO DAILY 01/23/16 06/24/16 1 Day Ago History 81 Citalopram Hydrobromide [celeXA] 40 mg PO DAILY 01/23/16 06/24/16 1 Day Ago History 40 LORazepam [Ativan] 2 mg PO BID PRN 01/23/16 06/24/16 1 Day Ago History 2 Lisinopril [Zestril TAB] 20 mg PO QDAY 01/23/16 06/24/16 1 Day Ago History 20 Morphine [Morphine TAB] 15 mg PO BID 01/23/16 06/24/16 1 Day Ago History 15 Olanzapine [OLANZapine] 10 mg PO QHS 01/23/16 06/24/16 1 Day Ago History 10 ALBUTEROL Inhaler [ProAir HFA 2 puff IH QID PRN 30 Days 06/27/16 Unknown Rx Inhaler] Arformoterol Nebu [Brovana Nebu] 15 mcg IH Q12HR 30 Days 06/27/16 Unknown Rx Budesonide [Pulmicort Respules] 0.5 mg IH Q12HRT #60 nebu 06/27/16 Unknown Rx Simvastatin [Zocor TAB] 40 mg PO QHS #30 tablet 06/27/16 Unknown Rx Azithromycin [Zithromax TAB] 250 mg PO QDAY #3 tablet 07/14/16 Unknown Rx Benzonatate [Tessalon Perles] 200 mg PO Q8HR PRN #30 capsule 07/14/16 Unknown Rx Insulin Aspart [NovoLOG Flexpen] 14 units SQ AC #1 pen 07/14/16 Unknown Rx Prednisone [predniSONE 5 mg (6-Day 5 mg PO .TAPER #1 tab.ds.pk 07/14/16 Unknown Rx Pack, 21 Tabs)] ED Review of Systems ROS: Stated complaint: DIFFICULTY IN BREATHING Other details as noted in HPI Constitutional: denies: fever ENT: denies: throat or neck pain Respiratory: reports cough, shortness of breath Cardiovascular: denies: chest pain Endocrine: denies unexplained weight loss or gain Gastrointestinal: denies: abdominal pain, nausea Genitourinary: denies: dysuria Musculoskeletal: denies: leg swelling Skin: denies: rash Neurological: denies: headache Hematological/Lymphatic: denies: easy bleeding or easy bruising Psych: denies sadness or hopelessness Physical Exam - Physical Exam Vital Signs: Vital Signs 08/11/16 08/11/16 08/11/16 22:22 23:35 23:51 Temperature 97.8 F Pulse Rate 77 Pulse Rate [ 80 84 Anterior] Respiratory 18 Rate Respiratory 19 19 Rate [Anterior] Blood Pressure 122/71 Blood Pressure [Left] O2 Sat by Pulse 99 Oximetry 08/12/16 00:30 Temperature Pulse Rate 91 H Pulse Rate [ Anterior] Respiratory 21 Rate Respiratory Rate [Anterior] Blood Pressure Blood Pressure 126/73 [Left] O2 Sat by Pulse 93 Oximetry Physical Exam: General: well-nourished, well-developed, no acute distress, patient is morbidly obese Head: Normocephalic, atraumatic Eyes: normal sclera ENT: Mucous membranes are pink and moist Neck: trachea midline, neck supple, No neck stiffness, no cervical adenopathy Respiratory: Mildly diminished breath sounds and wheezing present throughout lung is bilaterally, no costal retractions, no respiratory distress Cardio: S1 and S2 present, no murmurs, rubs, gallops, capillary refill is brisk Abdomen: Normoactive bowel sounds, soft abdomen, no rigidity, no guarding or rebound tenderness Musc: No pitting edema Skin: No rash Neuro: no facial drooping, normal speech Psych: Normal affect ED Course Vital Signs 08/11/16 08/11/16 08/11/16 22:22 23:35 23:51 Temperature 97.8 F Pulse Rate 77 Pulse Rate [ 80 84 Anterior] Respiratory 18 Rate Respiratory 19 19 Rate [Anterior] Blood Pressure 122/71 Blood Pressure [Left] O2 Sat by Pulse 99 Oximetry 08/12/16 00:30 Temperature Pulse Rate 91 H Pulse Rate [ Anterior] Respiratory 21 Rate Respiratory Rate [Anterior] Blood Pressure Blood Pressure 126/73 [Left] O2 Sat by Pulse 93 Oximetry ED Medical Decision Making - Lab Data Result diagrams: 08/11/16 22:53 08/11/16 22:53 - Medical Decision Making The patient was seen and examined by myself. The patient is placed on a cardiac monitor technician and continuous pulse ox. On initial evaluation, the patient was found to be in no distress. Evaluation orders were placed. The patient is given a duoneb breathing treatment and solumedrol for txt of COPD. Chest x-ray negative for focal consolidation, pleural effusions, pulmonary congestion, pneumothorax, or other acute cardio pulmonary disease process. Lab results revealed mildly elevated glucose of 270, with normal bicarbonate, not consistent with DKA, and elevated PCO2 with low PO2 of 69 on ABG. Otherwise labs were unrevealing. The patient is given IV insulin for treatment of hyperglycemia. The patient was reevaluated and found to remain with dyspnea and wheezing. The on-call hospitalist service was contacted. They agreed to admit the patient for further treatment and close monitoring. The ED admit order was placed. The patient was admitted in guarded condition. Critical care attestation.: If time is entered above; I have spent that time in minutes in the direct care of this critically ill patient, excluding procedure time. ED Disposition Clinical Impression: Acute exacerbation of chronic obstructive pulmonary disease (COPD), Acute hyperglycemia, Acute hypoxemic respiratory failure Disposition: OP ADMITTED IP TO THIS HOSP Is pt being admited?: Yes Does the pt Need Aspirin: Yes Condition: Fair Instructions: Chronic Obstructive Pulmonary Disease (ED) Referrals: PRIMARY CARE, [Primary Care Provider] - 3-5 Days Time of Disposition: 00:36
[2016-08-12 02:01] LABS: ISTAT Base Excess 0; ISTAT HCO3 25.8; ISTAT PH 7.346 (7.35-7.45); ISTAT PO2 69 (80-105); ISTAT SO2 92; ISTAT TCO2 27
[2016-08-12] MEDS ORDERED: BABY ASPIRIN PO ONE (02:08)
--- NOTE | 2016-08-12 03:03 | History and Physical Report ---
History of Present Illness Date of examination: 08/12/16 History of present illness: 50-year-old woman with a history of hypertension, diabetes, COPD, coronary artery disease, bipolar, chronic pain comes emergency room with complaints of shortness of breath , cough productive of yellowgreen phlegm. Patient denies chest pain, palpitation, abdominal pain, hematochezia, dysuria, frequency, focal weakness, dysarthria, fever chills, polydipsia polyuria, hot or cold intolerance, easy bruisability, or rash or bleeding from mucosal membrane, rhinorrhea, epistaxis, earache, tinnitus, blurry vision, eye discharge , depression. Other review of systems negative PAST SURGICAL HISTORY: Hysterectomy, 2, spinal fusion SOCIAL HISTORY: Smoke 4 cigarettes a day, no alcohol or drugs FAMILY HISTORY: Hypertension Medications and Allergies Allergies Allergy/AdvReac Type Severity Reaction Status Date / Time oxycodone HCl [From Percocet] Allergy Angioedema Verified 07/10/16 17:11 Penicillins Allergy Angioedema Verified 07/10/16 17:11 prednisone Allergy Unknown Verified 07/10/16 17:11 bupropion HCl AdvReac Unknown Verified 07/10/16 17:11 [From Wellbutrin] divalproex sodium AdvReac Unknown Verified 07/10/16 17:11 [From Depakote] fluoxetine HCl [From Prozac] AdvReac Unknown Verified 07/10/16 17:11 lithium AdvReac Unknown Verified 07/10/16 17:11 Home Medications Medication Instructions Recorded Confirmed Last Taken Type Aspirin 81 mg PO DAILY 01/23/16 06/24/16 1 Day Ago History 81 Citalopram Hydrobromide [celeXA] 40 mg PO DAILY 01/23/16 06/24/16 1 Day Ago History 40 LORazepam [Ativan] 2 mg PO BID PRN 01/23/16 06/24/16 1 Day Ago History 2 Lisinopril [Zestril TAB] 20 mg PO QDAY 01/23/16 06/24/16 1 Day Ago History 20 Morphine [Morphine TAB] 15 mg PO BID 01/23/16 06/24/16 1 Day Ago History 15 Olanzapine [OLANZapine] 10 mg PO QHS 01/23/16 06/24/16 1 Day Ago History 10 ALBUTEROL Inhaler [ProAir HFA 2 puff IH QID PRN 30 Days 06/27/16 Unknown Rx Inhaler] Arformoterol Nebu [Brovana Nebu] 15 mcg IH Q12HR 30 Days 06/27/16 Unknown Rx Budesonide [Pulmicort Respules] 0.5 mg IH Q12HRT #60 nebu 06/27/16 Unknown Rx Simvastatin [Zocor TAB] 40 mg PO QHS #30 tablet 06/27/16 Unknown Rx Azithromycin [Zithromax TAB] 250 mg PO QDAY #3 tablet 07/14/16 Unknown Rx Benzonatate [Tessalon Perles] 200 mg PO Q8HR PRN #30 capsule 07/14/16 Unknown Rx Insulin Aspart [NovoLOG Flexpen] 14 units SQ AC #1 pen 07/14/16 Unknown Rx Prednisone [predniSONE 5 mg (6-Day 5 mg PO .TAPER #1 tab.ds.pk 07/14/16 Unknown Rx Pack, 21 Tabs)] Exam - Physical Exam Narrative exam: Gen. appearance: Patient lying in bed, no apparent distress HEENT: Normocephalic, atraumatic, pupils equally round and reactive to light, extraocular movement intact, and no sclericterus,. No JVD or thyromegaly or nodule,neck supple, no carotid bruit ,mucous membranes moist, no exudate or erythema Heart: S1, S2, regular rate and rhythm Lungs: Wheezing bilaterally, breathing comfortable Abdomen: Positive bowel sounds, nontender, nondistended, no organomegaly Extremity: No edema, cyanosis, clubbing Skin: No rash, nodules, warm, dry Neuro: Oriented 3, cranial nerves II-12 intact, speech is fluent, motor and sensory intact - Constitutional Vitals: Temp Pulse Resp BP Pulse Ox 97.8 F 91 H 21 126/73 93 08/11/16 22:22 08/12/16 00:30 08/12/16 00:30 08/12/16 00:30 08/12/16 00:30 Results - Labs CBC & Chem 7: 08/11/16 22:53 08/11/16 22:53 Labs: Abnormal lab results 08/11/16 08/11/16 08/12/16 Range/Units 22:53 22:53 00:01 RDW 13.1 L (13.2-15.2) % POC ABG pH 7.346 L (7.35-7.45) POC ABG pCO2 47.0 H (35-45) POC ABG pO2 69 L (80-105) Chloride 96.4 L (98-107) mmol/L Glucose 279 H (65-100) mg/dL - Imaging and Cardiology Abdominal x-ray: image reviewed Assessment and Plan COPD exacerbation with bronchitis Hypertension Diabetes of 2 Coronary artery disease Bipolar Chronic pain Admit to medicine Start nebulizer treatment, IV azithromycin, hold IV steroids, patient allergic check fingersticks initiate insulin sliding scale Continue appropriate outpatient medications, start DVT prophylaxis
[2016-08-12] MEDS ORDERED: DULCOLAX PR PRN (03:04)
[2016-08-12] MEDS ORDERED: ZOFRAN IV PRN (03:04)
[2016-08-12] MEDS ORDERED: D50W (25GM) IV PRN (03:04)
[2016-08-12] MEDS ORDERED: MILK OF MAGNESIA PO PRN (03:04)
[2016-08-12] MEDS ORDERED: TYLENOL PO PRN (03:04)
[2016-08-12] MEDS ORDERED: ZITHROMAX 500 MG in NACL 0.9% 250ML 250 ML IV ONE (03:04)
--- NOTE | 2016-08-12 03:23 | Admit Criteria Form ---
Admission Criteria Documentation: COPD Clinical Indications for Admission to Inpatient Care (Place 'X' for any and all applicable criteria): Admission is indicated for ANY ONE of the following (1)(2)(3): [ X]I. Acute exacerbation by high-risk comorbidity (e.g., pneumonia, dysrhythmia, heart failure, pleural effusion, pneumothorax) or severe underlying COPD (e.g., steroid dependent) [ ]II. Inpatient admission required rather than observation care (see Chronic Obstructive Pulmonary Disease: Observation Care) because of ANY ONE of the following: [ ]a) New or pre-existing signs or symptoms of COPD (eg, dyspnea or Tachypnea at rest or with minimal activity) that persist despite outpatient and observation care treatment [ ]b) New-onset hypoxemia (room air SaO2 less than 90%, PO2 less than 60 mm Hg (8.0 kPa)) that persists despite outpatient and observation care treatment [ ]c) Worsening of pre-existing hypoxemia (eg, new or increased requirement for supplemental oxygen to maintain oxygenation at baseline level) that persists despite outpatient and observation care treatment, with oxygen treatment needs performable only in acute inpatient setting [ ]d) Hypercarbia (PCO2 greater than 40 mm Hg (5.3 kPa))-induced respiratory acidosis (pH less than 7.35) that persists despite outpatient and observation care treatment [ ]e) Supplemental oxygen or respiratory treatments for over 24 hours that are performable only in acute inpatient setting [ ]f) Chest tube placement with active evacuation (e.g., suction, drainage) (5) [ ]g) Other condition, treatment or monitoring requiring inpatient admission [ ]III. Planned invasive surgical or diagnostic procedures requiring acute- care hospitalization [ ]IV. Acute respiratory failure (e.g., uncompensated hypercarbia, severe hypoxemia) [ ]V. Severe comorbid condition (e.g., severe steroid myopathy, acute vertebral fracture) that has acutely worsened pulmonary function [ ]. Confusion state, lethargy, obtundation, stupor or coma Extended stay beyond goal length of stay may be needed for (31)(32): [ ]a ) Respiratory Failure. [ ]b) Severe or persisting hypoxemia or hypercarbia [ ]c) Severe or persistent dyspnea [ ]d) Comorbidities (e.g. chronic heart failure, atrial fibrillation with rapid response, pneumonia) [ ]e) Malnutrition The original [facility] content created by [facility] has been revised. The portions of the content which have been revised are identified through the use of italic text or in bold, and [facility] has neither reviewed nor approved the modified material. All other unmodified content is copyright [facility]. Please see references footnoted in the original [facility] edition 2016 Admission Criteria Met: Yes
[2016-08-12] MEDS ORDERED: ASPIRIN ONE (03:27)
[2016-08-12] MEDS ORDERED: INSULIN ASPART 14 UNIT SQ SCH (07:30)
[2016-08-12] MEDS: NOVOLOG SUB-Q SCH ×3 (08:18→17:59)
--- NOTE | 2016-08-12 08:53 | XRay Report ---
AP CHEST : 08/11/16 21:56:00 CLINICAL: Chest pain. COMPARISON:07/10/16 FINDINGS: The examination was performed semiupright. Normal heart and pulmonary vessels. The lungs are normally expanded and clear. The bones and soft tissues are unremarkable. IMPRESSION: Normal chest.
[2016-08-12] MEDS: BROVANA NEBU IH SCH ×2 (09:54→19:39)
[2016-08-12] MEDS: DUONEB 0.5 MG-3 MG/3 ML SOLN IH SCH ×4 (09:54→19:38)
[2016-08-12] MEDS ORDERED: LOVENOX SUB-Q SCH (10:00)
[2016-08-12] MEDS ORDERED: NON-FORMULARY (Citalopram Hydrobromide [Celexa] 40 MG) PO SCH (10:00)
[2016-08-12] MEDS: ZESTRIL PO SCH (10:04)
[2016-08-12] MEDS: celeXA PO SCH (10:04)
[2016-08-12] MEDS: LOVENOX SUB-Q SCH (10:04)
[2016-08-12] MEDS: TESSALON PERLES PO PRN ×2 (10:05→17:59)
[2016-08-12] MEDS: ATIVAN PO PRN ×2 (10:29→20:12)
--- NOTE | 2016-08-12 11:10 | Event Note ---
Date: 08/12/16 This is a follow-up from an admission early this morning. Patient seen and examined. Continue plan as outlined in the H&P.
[2016-08-12] MEDS: ZOCOR PO SCH (21:23)
[2016-08-13] MEDS: DUONEB 0.5 MG-3 MG/3 ML SOLN IH SCH ×4 (02:18→20:48)
[2016-08-13 06:05] LABS: Basophils % (Auto) 1.2 % (0.0-1.8); Eosinophils % (Auto) 3.9 % (0.0-4.3); Hemoglobin 12.9 gm/dl (10.1-14.3); Mean Corpuscular HGB Conc 33 % (30-34); Mean Corpuscular Hemoglobin 30 pg (28-32); Mean Corpuscular Volume 91 fl (79-97); Platelet Count 232 K/mm3 (140-440); Red Cell Distribution Width 13.4 % (13.2-15.2); White Blood Count 6.3 K/mm3 (4.5-11.0)
[2016-08-13 06:20] LABS: BUN/Creatinine Ratio 13.33; Blood Urea Nitrogen 8 mg/dL (7-17); Calcium 9.2 mg/dL (8.4-10.2); Carbon Dioxide 26 mmol/L (22-30); Chloride 97.2 mmol/L (98-107); Glucose 140 mg/dL (65-100); Sodium 140 mmol/L (137-145)
[2016-08-13 07:11] LABS: Anion Gap 20 mmol/L
[2016-08-13] MEDS: BROVANA NEBU IH SCH ×2 (08:08→20:48)
[2016-08-13] MEDS: ZESTRIL PO SCH (09:25)
[2016-08-13] MEDS: ZITHROMAX PO SCH (09:25)
[2016-08-13] MEDS: LOVENOX SUB-Q SCH (09:25)
[2016-08-13] MEDS: celeXA PO SCH (09:25)
[2016-08-13] MEDS: NOVOLOG SUB-Q SCH ×3 (09:27→17:34)
--- NOTE | 2016-08-13 10:52 | Progress Note ---
Assessment and Plan Assessment and plan: 1. Acute COPD exacerbation. Continue COPD pathway, nebulizer treatments and O2 for supportive care. 2. Left shoulder pain. Check plain films. 3. Hypertension. Resume antihypertensives medications. 4. Diabetes most type II. Continue Accu-Cheks and sliding scale. 5. Coronary artery disease. Stable. 6. Bipolar disorder. Continue medications. 7. Chronic pain syndrome. 8. DVT prophylaxis. History Interval history: 51-year-old female admitted with acute COPD exacerbation with bronchitis. Patient now complains of left shoulder pain. Hospitalist Physical - Constitutional Vitals: Temp Pulse Resp BP Pulse Ox 97.7 F 64 18 105/68 100 08/13/16 09:00 08/13/16 09:00 08/13/16 09:00 08/13/16 09:00 08/13/16 09:00 General appearance: Present: no acute distress, well-nourished - EENT Eyes: Present: PERRL, EOM intact ENT: hearing intact, clear oral mucosa, dentition normal - Neck Neck: Present: supple, normal ROM - Respiratory Respiratory effort: normal Respiratory: bilateral: CTA - Cardiovascular Rhythm: regular Heart Sounds: Present: S1 & S2. Absent: gallop, rub - Extremities Extremities: no ischemia, No edema, Full ROM - Abdominal General gastrointestinal: soft, non-tender, non-distended, normal bowel sounds - Integumentary Integumentary: Present: clear, warm, dry - Neurologic Neurologic: CNII-XII intact, moves all extremities Results - Labs CBC & Chem 7: 08/13/16 05:25 08/13/16 05:34 Labs: Laboratory Last Values WBC 6.3 K/mm3 (4.5-11.0) 08/13/16 05:25 RBC 4.30 M/mm3 (3.65-5.03) 08/13/16 05:25 Hgb 12.9 gm/dl (10.1-14.3) 08/13/16 05:25 Hct 39.0 % (30.3-42.9) 08/13/16 05:25 MCV 91 fl (79-97) 08/13/16 05:25 MCH 30 pg (28-32) 08/13/16 05:25 MCHC 33 % (30-34) 08/13/16 05:25 RDW 13.4 % (13.2-15.2) 08/13/16 05:25 Plt Count 232 K/mm3 (140-440) 08/13/16 05:25 Lymph % (Auto) 42.7 % (13.4-35.0) H 08/13/16 05:25 [place] % (Auto) 4.5 % (0.0-7.3) 08/13/16 05:25 Eos % (Auto) 3.9 % (0.0-4.3) 08/13/16 05:25 Baso % (Auto) 1.2 % (0.0-1.8) 08/13/16 05:25 Lymph # 2.7 K/mm3 (1.2-5.4) 08/13/16 05:25 [place] # 0.3 K/mm3 (0.0-0.8) 08/13/16 05:25 Eos # 0.2 K/mm3 (0.0-0.4) 08/13/16 05:25 Baso # 0.1 K/mm3 (0.0-0.1) 08/13/16 05:25 Seg Neutrophils % 47.7 % (40.0-70.0) 08/13/16 05:25 Seg Neutrophils # 3.0 K/mm3 (1.8-7.7) 08/13/16 05:25 POC ABG pH 7.346 (7.35-7.45) L 08/12/16 00:01 POC ABG pCO2 47.0 (35-45) H 08/12/16 00:01 POC ABG pO2 69 (80-105) L 08/12/16 00:01 POC ABG HCO3 25.8 08/12/16 00:01 POC ABG Total CO2 27 08/12/16 00:01 POC ABG O2 Sat 92 08/12/16 00:01 POC ABG Base Excess 0 08/12/16 00:01 FiO2 28 % 08/12/16 00:01 Sodium 140 mmol/L (137-145) 08/13/16 05:34 Potassium 3.0 mmol/L (3.6-5.0) L D 08/13/16 05:34 Chloride 97.2 mmol/L (98-107) L 08/13/16 05:34 Carbon Dioxide 26 mmol/L (22-30) 08/13/16 05:34 Anion Gap 20 mmol/L 08/13/16 05:34 BUN 8 mg/dL (7-17) 08/13/16 05:34 Creatinine 0.6 mg/dL (0.7-1.2) L 08/13/16 05:34 Estimated GFR > 60 ml/min 08/13/16 05:34 BUN/Creatinine Ratio 13.33 % 08/13/16 05:34 Glucose 140 mg/dL (65-100) H 08/13/16 05:34 POC Glucose 131 (70-105) H 08/13/16 07:47 Calcium 9.2 mg/dL (8.4-10.2) 08/13/16 05:34 NT-Pro-B Natriuret Pep 77.09 pg/mL (0-900) 08/11/16 22:53
[2016-08-13] MEDS ORDERED: TORADOL IV ONE (10:55)
[2016-08-13] MEDS: ATIVAN PO PRN ×2 (12:43→21:32)
[2016-08-13] MEDS: ZOCOR PO SCH (21:32)
[2016-08-14] MEDS: DUONEB 0.5 MG-3 MG/3 ML SOLN IH SCH ×2 (01:39→08:34)
[2016-08-14 05:43] LABS: BUN/Creatinine Ratio 18.33; Blood Urea Nitrogen 11 mg/dL (7-17); Calcium 9.5 mg/dL (8.4-10.2); Carbon Dioxide 28 mmol/L (22-30); Chloride 107.8 mmol/L (98-107); Glucose 184 mg/dL (65-100); Sodium 146 mmol/L (137-145)
[2016-08-14 05:53] LABS: Hematocrit 43.3 % (30.3-42.9); Hemoglobin 13.5 gm/dl (10.1-14.3); Mean Corpuscular HGB Conc 31 % (30-34); Mean Corpuscular Hemoglobin 29 pg (28-32); Mean Corpuscular Volume 94 fl (79-97); Platelet Count 243 K/mm3 (140-440); Red Blood Count 4.61 M/mm3 (3.65-5.03); Red Cell Distribution Width 13.8 % (13.2-15.2); White Blood Count 6.5 K/mm3 (4.5-11.0)
[2016-08-14 06:03] LABS: Anion Gap 15 mmol/L; Potassium 4.6 mmol/L (3.6-5.0)
--- NOTE | 2016-08-14 07:52 | XRay Report ---
Left shoulder 3 views: History: Shoulder pain. Findings: Mild arthritic changes of the a.c. joint with moderate to severe arthritic changes of the inferior aspect of the glenohumeral joint. Decrease in acromiohumeral space with cortical irregularity of the adjacent tuberosity of humerus. No soft tissue calcification. Impression: Arthritic change a.c. joint and glenohumeral joint. Decrease in acromiohumeral space may be related to impingement.
--- NOTE | 2016-08-14 08:28 | Discharge Summary ---
Providers - Providers Date of Admission: 08/12/16 03:04 Date of discharge: 08/14/16 Attending physician: SEKOU BLAKELY Primary care physician: GENTRY PEREZ MD Hospitalization Reason for admission: sob Condition: Fair Hospital course: 50-year-old woman with a history of hypertension, diabetes, COPD, coronary artery disease, bipolar, chronic pain comes emergency room with complaints of shortness of breath , cough productive of yellowgreen phlegm. Patient was admitted with a diagnosis of acute COPD exacerbation with bronchitis. Patient receive antibiotics, nebulizers and bronchodilators. During the hospital stay, patient complained of some left shoulder pain. Plain films revealed degenerative/arthritic changes. No acute dislocation or fracture. Patient's dyspnea resolved and she was felt to have received maximal hospital benefit for discharge. Dedicated discharge time 35 minutes. Disposition: DISCHARGED TO HOME OR SELFCARE - Discharge Diagnoses (1) Acute exacerbation of chronic obstructive pulmonary disease (COPD) Status: Acute (2) Acute hypoxemic respiratory failure Status: Acute (3) Acute on chronic respiratory failure with hypoxia Status: Acute (4) COPD exacerbation Status: Acute Core Measure Documentation - Palliative Care Palliative Care/ Comfort Measures: Not Applicable - Core Measures Any of the following diagnoses?: none Exam - Constitutional Vitals: Temp Pulse Resp BP Pulse Ox 98.1 F 81 20 159/68 97 08/13/16 19:56 08/13/16 21:25 08/13/16 21:25 08/13/16 19:56 08/13/16 20:50 General appearance: Present: no acute distress, well-nourished - EENT Eyes: Present: PERRL ENT: hearing intact, clear oral mucosa - Neck Neck: Present: supple, normal ROM - Respiratory Respiratory effort: normal Respiratory: bilateral: CTA - Cardiovascular Heart Sounds: Present: S1 & S2. Absent: rub, click - Extremities Extremities: pulses symmetrical, No edema Peripheral Pulses: within normal limits - Abdominal General gastrointestinal: Present: soft, non-tender, non-distended, normal bowel sounds Female genitourinary: Present: normal - Integumentary Integumentary: Present: clear, warm, dry - Musculoskeletal Musculoskeletal: gait normal, strength equal bilaterally - Psychiatric Psychiatric: appropriate mood/affect, intact judgment & insight - Neurologic Neurologic: CNII-XII intact, moves all extremities Plan Activity: no restrictions Weight Bearing Status: Full Weight Bearing Diet: regular Follow up with: PRIMARY CARE, [Primary Care Provider] - 3-5 Days Prescriptions: ALBUTEROL Inhaler [ProAir HFA Inhaler] 2 puff IH QID PRN 30 Days PRN Reason: Shortness Of Breath Arformoterol Nebu [Brovana Nebu] 15 mcg IH Q12HR 30 Days Aspirin 81 mg PO DAILY #30 tab.chew Azithromycin [Zithromax TAB] 250 mg PO QDAY #7 tablet Benzonatate [Tessalon Perles] 200 mg PO Q8HR PRN #30 capsule PRN Reason: Cough Budesonide [Pulmicort Respules] 0.5 mg IH Q12HRT #60 nebu Citalopram Hydrobromide [celeXA] 40 mg PO DAILY #30 tablet Lisinopril [Zestril TAB] 20 mg PO QDAY #30 tablet LORazepam [Ativan] 2 mg PO BID PRN #20 tablet PRN Reason: Anxiety Morphine [Morphine TAB] 15 mg PO BID #10 tablet Simvastatin [Zocor TAB] 40 mg PO QHS #30 tablet
[2016-08-14] MEDS: BROVANA NEBU IH SCH (08:34)
[2016-08-14 08:53] VITALS: BP 152/66
[2016-08-14] MEDS: NOVOLOG SUB-Q SCH ×2 (09:35→12:47)
[2016-08-14] MEDS: ZESTRIL PO SCH (09:36)
[2016-08-14] MEDS: celeXA PO SCH (09:36)
[2016-08-14] MEDS: LOVENOX SUB-Q SCH (09:36)
[2016-08-14] MEDS: ZITHROMAX PO SCH (09:36)
[2016-08-14] MEDS: ATIVAN PO PRN (10:00)
[2016-08-14 10:55] LABS: Basophils % (Manual) 0 % (0.0-1.8); Blastocytes % (Manual) 0 %
[2016-08-14 10:56] LABS: Diff Status Complete; Platelet Estimate Consistent w Auto
== END 2016-08-14 12:50 | disposition home or self-care (01) | DRG 189 ==
LOC: ED 21:56 → 3A 08-12 03:04
PROVIDERS: ADMIT Internal Medicine; ATTEND Hospitalist
PROC: 4A033R1 Measurement of Arterial Saturation, Peripheral, Percutaneous Approach (ICD-10-PCS; principal; 2016-08-11)
DX: J96.21 Acute and chronic respiratory failure with hypoxia (principal); J44.1 Chronic obstructive pulmonary disease with (acute) exacerbation; Z68.42 Body mass index [BMI] 45.0-49.9, adult; J40 Bronchitis, not specified as acute or chronic; F17.210 Nicotine dependence, cigarettes, uncomplicated; F31.9 Bipolar disorder, unspecified; I25.10 Atherosclerotic heart disease of native coronary artery without angina pectoris; I50.9 Heart failure, unspecified; I11.0 Hypertensive heart disease with heart failure; E66.01 Morbid (severe) obesity due to excess calories; E11.9 Type 2 diabetes mellitus without complications; Z88.0 Allergy status to penicillin; Z88.5 Allergy status to narcotic agent; Z88.8 Allergy status to other drugs, medicaments and biological substances; Z79.4 Long term (current) use of insulin; Z98.1 Arthrodesis status; Z90.710 Acquired absence of both cervix and uterus; Z82.49 Family history of ischemic heart disease and other diseases of the circulatory system; Z71.3 Dietary counseling and surveillance
CPT/HCPCS: 36415; 71010; 80048; 82803; 82962; 83880; 85007; 85025; 85027; 87400; 93005; 93010; 94640; 94760; 96372; 96374; 96375; J0456; J1200; J1650; J1815; J1885; J2060; J2930; J3475; J7050

== ENCOUNTER 2016-09-22 14:39 | Emergency (ER) | payer MEDICARE ==
[2016-09-22 16:30] LABS: Basophils % (Auto) 0.6 % (0.0-1.8); Eosinophils % (Auto) 0.8 % (0.0-4.3); Hematocrit 44.9 % (30.3-42.9); Hemoglobin 14.8 gm/dl (10.1-14.3); Mean Corpuscular HGB Conc 33 % (30-34); Mean Corpuscular Hemoglobin 30 pg (28-32); Mean Corpuscular Volume 91 fl (79-97); Platelet Count 308 K/mm3 (140-440); Red Blood Count 4.93 M/mm3 (3.65-5.03); Red Cell Distribution Width 13.2 % (13.2-15.2); White Blood Count 7.7 K/mm3 (4.5-11.0)
[2016-09-22 16:45] LABS: Anion Gap 18 mmol/L; BUN/Creatinine Ratio 16.66; Blood Urea Nitrogen 10 mg/dL (7-17); Carbon Dioxide 27 mmol/L (22-30); Chloride 101.1 mmol/L (98-107); Glucose 125 mg/dL (65-100); Potassium 3.9 mmol/L (3.6-5.0); Sodium 142 mmol/L (137-145)
[2016-09-22] MEDS ORDERED: TORADOL IV ONE (22:41)
[2016-09-22] MEDS ORDERED: MAGNESIUM SULFATE 2GM/50ML 2 GM/50 ML BAG IV ONE (22:41)
[2016-09-22] MEDS ORDERED: PROVENTIL IH ONE (22:41)
[2016-09-22] MEDS ORDERED: ATROVENT IH ONE (22:41)
--- NOTE | 2016-09-22 22:44 | Emergency Department Report ---
ED General Adult HPI - General Chief complaint: Chest Pain Stated complaint: LEFT ARM PAIN Time Seen by Provider: 09/22/16 22:29 Source: patient, RN notes reviewed, old records reviewed Mode of arrival: Ambulatory Limitations: No Limitations - History of Present Illness Initial comments: This is a 51-year-old female. I have evaluated her in the past. Her primary care doctor is Dr. Jennifer Lacy. Her billiard table repairer Dr. Corbin. Past medical history includes COPD, home oxygen dependent, 2 L, diabetes, hypertension, bipolar, anxiety, chronic pain, spinal fusion. The patient presents to the ER with multiple complaints. First complaint is left-sided shoulder pain. The pain has been present since a hospital admission at the end of July. The pain is sharp. It increases with palpation, range of motion. It decreases with rest. It occasionally radiates up to the neck, and down the left lower extremity. The patient also describes feeling generally tremulous and anxious. She reports running out of her Ativan. She reports that she ingested methamphetamines a few days ago. She is not homicidal. She is not suicidal. The patient denies posterior leg pain and posterior leg swelling. No recent trips in the past 4 weeks. No recent hospital admissions within the past 4 weeks. The patient reports that her pain in the shoulder intermittently radiates to the left breast and chest wall. Of note, the patient was admitted to the hospital for chest pain. As per review of old medical records "stress test on 06/13/2016 at [facility]; fixed inferior defect with slight reversibility in the setting of significant breast and diaphragm attenuation: Ejection fraction 74%." As per the recommendation of the consulting brush stainer, "given atypical chest pain, negative cardiac enzymes and recent stress test that showed only mild reversibility, recommend continuing management of COPD." -: Gradual Location: chest, left, upper extremity Severity scale (0 -10): 8 Quality: aching Consistency: intermittent Improves with: rest Worsens with: movement Associated Symptoms: chest pain, cough, other (anxiety) - Related Data Previous Rx's Medication Instructions Recorded Last Taken Type Citalopram Hydrobromide [celeXA] 40 mg PO DAILY #30 tablet 08/14/16 09/18/16 Rx Albuterol Sulfate [Albuterol 0.63% 0.63 mg IH Q4HR PRN #2 ml 09/23/16 Unknown Rx NEBS] Albuterol Sulfate [Proair 90 mcg IH Q4HR PRN #2 aer.pow.ba 09/23/16 Unknown Rx Respiclick] Aspirin 81 mg PO DAILY #30 tab.chew 09/23/16 Unknown Rx Insulin Aspart [NovoLOG Flexpen] 12 units SQ AC #10 insuln.pen 09/23/16 Unknown Rx Ipratropium [place] [Atrovent Hfa] 12.9 gm IH Q4HR #2 hfa.aer.ad 09/23/16 Unknown Rx Ipratropium [Atrovent NEB] 0.5 mg IH Q4HR #2 ml 09/23/16 Unknown Rx LORazepam [Ativan] 2 mg PO BID PRN #10 tablet 09/23/16 Unknown Rx Lisinopril [Zestril TAB] 25 mg PO QDAY #30 tablet 09/23/16 Unknown Rx Omeprazole Magnesium [PriLOSEC Otc] 20 mg PO QDAY #30 tablet. 09/23/16 Unknown Rx predniSONE [Deltasone] 40 mg PO QDAY #8 tab 09/23/16 Unknown Rx Allergies Allergy/AdvReac Type Severity Reaction Status Date / Time oxycodone HCl [From Percocet] Allergy Angioedema Verified 07/10/16 17:11 Penicillins Allergy Angioedema Verified 07/10/16 17:11 prednisone Allergy Unknown Verified 07/10/16 17:11 bupropion HCl AdvReac Unknown Verified 07/10/16 17:11 [From Wellbutrin] divalproex sodium AdvReac Unknown Verified 07/10/16 17:11 [From Depakote] fluoxetine HCl [From Prozac] AdvReac Unknown Verified 07/10/16 17:11 lithium AdvReac Unknown Verified 07/10/16 17:11 ED Review of Systems ROS: Stated complaint: LEFT ARM PAIN Other details as noted in HPI Constitutional: malaise Eyes: denies: vision change Respiratory: cough, shortness of breath Cardiovascular: as per HPI Gastrointestinal: denies: vomiting Genitourinary: as per HPI Musculoskeletal: arthralgia, myalgia Skin: denies: lesions Neurological: weakness Psychiatric: anxiety ED Past Medical Hx - Past Medical History Hx Hypertension: Yes Hx Congestive Heart Failure: Yes Hx Diabetes: Yes Hx Psychiatric Treatment: Yes Hx Asthma: Yes Hx COPD: Yes Hx HIV: No - Surgical History Additional Surgical History: left hip - Social History Smoking Status: Unknown if ever smoked Substance Use Type: None - Medications Home Medications: Home Medications Medication Instructions Recorded Confirmed Last Taken Type Citalopram Hydrobromide [celeXA] 40 mg PO DAILY #30 tablet 08/14/16 09/23/16 Rx Albuterol Sulfate [Albuterol 0.63% 0.63 mg IH Q4HR PRN #2 ml 09/23/16 Unknown Rx NEBS] Albuterol Sulfate [Proair 90 mcg IH Q4HR PRN #2 aer.pow.ba 09/23/16 Unknown Rx Respiclick] Aspirin 81 mg PO DAILY #30 tab.chew 09/23/16 Unknown Rx Insulin Aspart [NovoLOG Flexpen] 12 units SQ AC #10 insuln.pen 09/23/16 Unknown Rx Ipratropium [place] [Atrovent Hfa] 12.9 gm IH Q4HR #2 hfa.aer.ad 09/23/16 Unknown Rx Ipratropium [Atrovent NEB] 0.5 mg IH Q4HR #2 ml 09/23/16 Unknown Rx LORazepam [Ativan] 2 mg PO BID PRN #10 tablet 09/23/16 Unknown Rx Lisinopril [Zestril TAB] 25 mg PO QDAY #30 tablet 09/23/16 Unknown Rx Omeprazole Magnesium [PriLOSEC Otc] 20 mg PO QDAY #30 tablet. 09/23/16 Unknown Rx predniSONE [Deltasone] 40 mg PO QDAY #8 tab 09/23/16 Unknown Rx ED Physical Exam - General Limitations: No Limitations General appearance: alert, anxious, obese - Head Head exam: Present: atraumatic, normocephalic - Eye Eye exam: Present: normal appearance - ENT ENT exam: Present: normal exam, normal orophraynx, mucous membranes moist, normal external ear exam - Neck Neck exam: Present: normal inspection, full ROM. Absent: tenderness, meningismus - Respiratory Respiratory exam: Present: wheezes, rhonchi - Cardiovascular Cardiovascular Exam: Present: regular rate, normal rhythm, normal heart sounds. Absent: bradycardia, tachycardia, irregular rhythm, systolic murmur, diastolic murmur, rubs, gallop - GI/Abdominal GI/Abdominal exam: Present: soft, normal bowel sounds. Absent: distended, tenderness, guarding, rebound, rigid, pulsatile mass - Extremities Exam Extremities exam: Present: normal inspection, normal capillary refill, other ( there is no redness, pus, streaking over the left shoulder. The compartments are soft. Patient has some painful range of motion with abduction, anterior extension/flexion, and circumduction.There is tenderness over the left acromioclavicular joint. There is no posterior leg pain or leg swelling. There is negative palpable cord. The compartments are soft. 2+ pulses are noted in 4 extremities). Absent: pedal edema, joint swelling, calf tenderness - Back Exam Back exam: Present: normal inspection, full ROM. Absent: tenderness, CVA tenderness (R), CVA tenderness (L), muscle spasm, paraspinal tenderness, vertebral tenderness - Neurological Exam Neurological exam: Present: alert, oriented X3, other (Extraocular movements intact. Tongue midline. No facial droop. Facial sensation intact to light touch in the V1, V2, V3 distribution bilaterally. 5 and 5 strength in 4 extremities.. Sensation is intact to light touch in 4 extremities.). Absent: motor sensory deficit - Psychiatric Psychiatric exam: Present: anxious. Absent: homicidal ideation, suicidal ideation - Skin Skin exam: Present: warm, dry, intact, normal color. Absent: rash ED Course Vital Signs 09/22/16 09/22/16 09/22/16 15:15 21:27 21:31 Temperature 98.5 F Pulse Rate 76 79 Respiratory 23 Rate Blood Pressure 152/88 Blood Pressure [Right] O2 Sat by Pulse 100 97 95 Oximetry 09/22/16 09/22/16 09/22/16 21:41 21:51 22:00 Temperature Pulse Rate 88 88 88 Respiratory 42 H 24 22 Rate Blood Pressure 161/82 Blood Pressure [Right] O2 Sat by Pulse 95 95 96 Oximetry 09/22/16 09/22/16 09/22/16 22:04 22:07 22:11 Temperature Pulse Rate 86 86 85 Respiratory 20 24 Rate Blood Pressure 161/82 Blood Pressure 151/78 [Right] O2 Sat by Pulse 96 96 Oximetry 09/22/16 09/22/16 09/22/16 22:21 22:31 22:41 Temperature Pulse Rate 87 94 H 85 Respiratory 20 16 16 Rate Blood Pressure 161/82 161/82 161/82 Blood Pressure [Right] O2 Sat by Pulse 94 95 94 Oximetry 09/22/16 09/22/16 09/22/16 22:51 23:21 23:31 Temperature Pulse Rate 86 Respiratory 20 Rate Blood Pressure 161/82 161/82 161/82 Blood Pressure [Right] O2 Sat by Pulse 97 96 96 Oximetry 09/22/16 09/22/16 09/23/16 23:41 23:51 00:01 Temperature Pulse Rate Respiratory Rate Blood Pressure 161/82 161/82 161/82 Blood Pressure [Right] O2 Sat by Pulse 94 95 96 Oximetry 09/23/16 09/23/16 09/23/16 00:11 00:21 00:31 Temperature Pulse Rate Respiratory Rate Blood Pressure 161/82 161/82 161/82 Blood Pressure [Right] O2 Sat by Pulse 96 98 99 Oximetry 09/23/16 09/23/16 00:41 00:51 Temperature Pulse Rate Respiratory Rate Blood Pressure 161/82 185/88 Blood Pressure [Right] O2 Sat by Pulse 98 97 Oximetry - Reevaluation(s) Reevaluation #1: 09/22/16 23:32 Differential diagnosis: Bursitis, DJD, pneumonia, acute coronary syndrome, COPD , radiculopathy,, anxiety Assessment and plan: 51-year-old female with a number of complaints. Her main complaint is left shoulder pain and shoulder pain and neck pain that radiates down the left upper extremity into the chest wall. There may be a radicular component. The pain is reproducible. Troponin is negative 3, EKG morphologically unchanged 2, patient recently had an acute coronary syndrome risk stratification within the past 6 months, and was seen by cardiology at this facility. She is wheezing minimally, but saturating well on room air. She will be treated symptomatically, she reports she can tolerate prednisone. Albuterol, Atrovent, Valium, prednisone, magnesium, Toradol. X-ray of the chest was negative, x-ray of the shoulder was negative. Her symptoms are chronic, they are not acutely worsened. Upon the patient to be low risk by JUAN score, low risk by heart score, low risk by well's score. I don't believe she requires admission to the hospital for acute coronary syndrome risk patient. We will reassess once she has been treated with all her medications. Reevaluation #2: 09/23/16 01:07 The patient is reexamined. Her breath sounds are improved on repeat examination. Her shoulder pain and tenderness is improved on repeat examination. The patient is able to ambulate without desaturation. Patient's medications have been refilled for one month, with the exception of her Celexa and her Ativan. She is instructed to follow-up with the primary care doctor or psychiatrist for her Celexa. Given that the patient is chronically dependent on benzodiazepines , I do not want her to have a withdrawal seizure. Therefore, we will give her a small prescription to go home with. She is able to follow up with her outpatient primary care doctor, billiard table repairer, she can follow up with outpatient orthopedics for her chronic left shoulder pain. She will be discharged at this time. Return precautions are extensively reviewed. - EJ/Peripheral Line Neck L Time Out Performed: Yes Indications: nurses unable to establis Skin Cleansed in Sterile Fashion: Yes Size: 20 Dressing Placed: Tegaderm Patient Tolerated Procedure: well ED Medical Decision Making - Lab Data Result diagrams: 09/22/16 15:58 09/22/16 15:58 Vital Signs 09/22/16 09/22/16 09/22/16 15:15 22:04 22:07 Temperature 98.5 F Pulse Rate 76 86 86 Respiratory 20 Rate Blood Pressure 152/88 Blood Pressure 151/78 [Right] O2 Sat by Pulse 100 96 Oximetry Lab Results 09/22/16 09/22/16 09/22/16 Range/Units 15:58 15:58 18:36 WBC 7.7 (4.5-11.0) K/mm3 RBC 4.93 (3.65-5.03) M/mm3 Hgb 14.8 H (10.1-14.3) gm/dl Hct 44.9 H (30.3-42.9) % MCV 91 (79-97) fl MCH 30 (28-32) pg MCHC 33 (30-34) % RDW 13.2 (13.2-15.2) % Plt Count 308 (140-440) K/mm3 Lymph % (Auto) 24.0 (13.4-35.0) % [place] % (Auto) 6.1 (0.0-7.3) % Eos % (Auto) 0.8 (0.0-4.3) % Baso % (Auto) 0.6 (0.0-1.8) % Lymph # 1.8 (1.2-5.4) K/mm3 [place] # 0.5 (0.0-0.8) K/mm3 Eos # 0.1 (0.0-0.4) K/mm3 Baso # 0.0 (0.0-0.1) K/mm3 Seg Neutrophils % 68.5 (40.0-70.0) % Seg Neutrophils # 5.2 (1.8-7.7) K/mm3 Sodium 142 (137-145) mmol/L Potassium 3.9 (3.6-5.0) mmol/L Chloride 101.1 (98-107) mmol/L Carbon Dioxide 27 (22-30) mmol/L Anion Gap 18 mmol/L BUN 10 (7-17) mg/dL Creatinine 0.6 L (0.7-1.2) mg/dL Estimated GFR > 60 ml/min BUN/Creatinine Ratio 16.66 % Glucose 125 H (65-100) mg/dL Calcium 10.0 (8.4-10.2) mg/dL Troponin T < 0.010 < 0.010 (0.00-0.029) ng/mL 09/22/16 Range/Units 21:48 WBC (4.5-11.0) K/mm3 RBC (3.65-5.03) M/mm3 Hgb (10.1-14.3) gm/dl Hct (30.3-42.9) % MCV (79-97) fl MCH (28-32) pg MCHC (30-34) % RDW (13.2-15.2) % Plt Count (140-440) K/mm3 Lymph % (Auto) (13.4-35.0) % [place] % (Auto) (0.0-7.3) % Eos % (Auto) (0.0-4.3) % Baso % (Auto) (0.0-1.8) % Lymph # (1.2-5.4) K/mm3 [place] # (0.0-0.8) K/mm3 Eos # (0.0-0.4) K/mm3 Baso # (0.0-0.1) K/mm3 Seg Neutrophils % (40.0-70.0) % Seg Neutrophils # (1.8-7.7) K/mm3 Sodium (137-145) mmol/L Potassium (3.6-5.0) mmol/L Chloride (98-107) mmol/L Carbon Dioxide (22-30) mmol/L Anion Gap mmol/L BUN (7-17) mg/dL Creatinine (0.7-1.2) mg/dL Estimated GFR ml/min BUN/Creatinine Ratio % Glucose (65-100) mg/dL Calcium (8.4-10.2) mg/dL Troponin T < 0.010 (0.00-0.029) ng/mL - EKG Data When compared to previous EKG there are: no significant change 09/22/16 23:34 EKG #1 demonstrates normal sinus, 81 bpm, motion artifact, QTC 466 ms, not morphologically consistent with STEMI, appears unchanged when compared to prior EKG from 08/11/2016. EKG #2 demonstrates normal sinus, 85 bpm, normal intervals, normal axis, not morphologically consistent with STEMI. - Radiology Data Radiology results: report reviewed, image reviewed Critical care attestation.: If time is entered above; I have spent that time in minutes in the direct care of this critically ill patient, excluding procedure time. ED Disposition Clinical Impression: COPD exacerbation, Left shoulder pain Disposition: DISCHARGED TO HOME OR SELFCARE Is pt being admited?: No Does the pt Need Aspirin: No Condition: Stable Instructions: Chronic Obstructive Pulmonary Disease (ED) Additional Instructions: Rest and avoid heavy lifting. Avoid strenuous physical activity. Do not drive cars or operate motor vehicles when taking the Ativan medication. Follow up with her primary care doctor or pulmonology specialist within the next 2 weeks. Follow up with an carpet installation specialist or pain specialist for left shoulder pain within the next [address] Lucas is a local orthopedic doctor. Please follow up with her primary care doctor or psychiatrist for a Celexa refill. Return to the ER right away with new pain, worsened pain, migration of pain, fevers or chills, intractable nausea or vomiting, inability to tolerate liquid feeds. Dr. Seo is a local primary care doctor. Dr. Corbin is her personal pulmonology specialist. Dr. Lucas is a local orthopedic doctor. Prescriptions: Albuterol Sulfate [Albuterol 0.63% NEBS] 0.63 mg IH Q4HR PRN #2 ml PRN Reason: Wheezing Albuterol Sulfate [Proair Respiclick] 90 mcg IH Q4HR PRN #2 aer.pow.ba PRN Reason: Wheezing Aspirin 81 mg PO DAILY #30 tab.chew Insulin Aspart [NovoLOG Flexpen] 12 units SQ AC #10 insuln.pen Ipratropium [Atrovent NEB] 0.5 mg IH Q4HR #2 ml Ipratropium [place] [Atrovent Hfa] 12.9 gm IH Q4HR #2 hfa.aer.ad Lisinopril [Zestril TAB] 25 mg PO QDAY #30 tablet LORazepam [Ativan] 2 mg PO BID PRN #10 tablet PRN Reason: Anxiety Omeprazole Magnesium [PriLOSEC Otc] 20 mg PO QDAY #30 tablet. predniSONE [Deltasone] 40 mg PO QDAY #8 tab Referrals: PRIMARY CARE, [Primary Care Provider] - 3-5 Days BAM SEO MD [Staff Physician] - 3-5 Days RANGEL LUCAS MD [Staff Physician] - 3-5 Days CAROLE ESTRADA MD [Staff Physician] - 3-5 Days
[2016-09-23 00:59] VITALS: BP 185/88
--- NOTE | 2016-09-23 08:45 | XRay Report ---
LEFT SHOULDER, 3 views: History: Shoulder pain. Compared to 08/13/16. Mild to moderate osteoarthritic changes at the glenohumeral joint is again noted. Normal articulation at the a.c. joint. No evidence for fracture, dislocation or ligamentous injury. No bony lesion is appreciated. The soft tissues are unremarkable. IMPRESSION: Osteoarthritic changes. No acute change since 08/13/16.
--- NOTE | 2016-09-23 09:21 | XRay Report ---
CHEST 2 VIEWS INDICATION: Left-sided chest pain, cough. Numbness, tingling and sharp pain in left arm. Nausea, headache. COMPARISON: 08/11/2016 FINDINGS: PA and lateral chest radiographs demonstrate normal cardiomediastinal silhouette. Clear lungs. Mild multilevel thoracic spine degenerative spurring. EKG leads. CONCLUSION: No acute disease. Thank you for the opportunity to participate in this patient's care.
== END 2016-09-23 01:22 | disposition home or self-care (01) ==
LOC: ED 14:39
DX: J44.1 Chronic obstructive pulmonary disease with (acute) exacerbation (principal); M25.512 Pain in left shoulder; I10 Essential (primary) hypertension; I50.9 Heart failure, unspecified; E11.9 Type 2 diabetes mellitus without complications; J45.909 Unspecified asthma, uncomplicated; Z79.4 Long term (current) use of insulin; Z79.84 Long term (current) use of oral hypoglycemic drugs; Z88.0 Allergy status to penicillin; Z88.8 Allergy status to other drugs, medicaments and biological substances
CPT/HCPCS: 36415; 36569; 71020; 73030; 80048; 84484; 85025; 93005; 93010; 94640; 96365; 96375; 99285; J1885; J2930; J3475

== ENCOUNTER 2017-01-18 10:15 | Emergency (ER) | payer MEDICARE ==
[2017-01-18 11:16] LABS: Urine Drugs of Abuse Note Disclamer
[2017-01-18 11:35] LABS: Bacteria,Urine 2+ /HPF (Negative); Mucus,Urine 3+ /HPF
[2017-01-18 12:50] LABS: Basophils % (Auto) 0.4 % (0.0-1.8); Eosinophils % (Auto) 0.5 % (0.0-4.3); Hematocrit 43.1 % (30.3-42.9); Hemoglobin 14.3 gm/dl (10.1-14.3); Mean Corpuscular HGB Conc 33 % (30-34); Mean Corpuscular Hemoglobin 30 pg (28-32); Mean Corpuscular Volume 90 fl (79-97); Platelet Count 244 K/mm3 (140-440); Red Cell Distribution Width 13.6 % (13.2-15.2); White Blood Count 8.3 K/mm3 (4.5-11.0)
--- NOTE | 2017-01-18 13:01 | Emergency Department Report ---
ED Psych HPI - General Chief Complaint: Psych Stated Complaint: DEPRESSION DRUG RELASPE Time Seen by Provider: 01/18/17 12:26 Source: patient, EMS Mode of arrival: Ambulatory - History of Present Illness Initial Comments: Patient is a 51-year-old female past medical history of schizophrenia and bipolar who presents with auditory hallucinations. They have been going on for the last couple of hours. Patient states that she is hearing voices she's not sure what they state. She states that her symptoms are severe. In that she is very anxious. Patient denies having any suicidal or homicidal ideation. Patient hasn't had her medications for the last month. Patient states that she used meth a few days ago. Patient denies being in any pain. - Related Data Previous Rx's Medication Instructions Recorded Last Taken Type Citalopram Hydrobromide [celeXA] 40 mg PO DAILY #30 tablet 08/14/16 09/18/16 Rx Albuterol Sulfate [Albuterol 0.63% 0.63 mg IH Q4HR PRN #2 ml 09/23/16 Unknown Rx NEBS] Albuterol Sulfate [Proair 90 mcg IH Q4HR PRN #2 aer.pow.ba 09/23/16 Unknown Rx Respiclick] Aspirin 81 mg PO DAILY #30 tab.chew 09/23/16 Unknown Rx Insulin Aspart [NovoLOG Flexpen] 12 units SQ AC #10 insuln.pen 09/23/16 Unknown Rx Ipratropium [place] [Atrovent Hfa] 12.9 gm IH Q4HR #2 hfa.aer.ad 09/23/16 Unknown Rx Ipratropium [Atrovent NEB] 0.5 mg IH Q4HR #2 ml 09/23/16 Unknown Rx LORazepam [Ativan] 2 mg PO BID PRN #10 tablet 09/23/16 Unknown Rx Lisinopril [Zestril TAB] 25 mg PO QDAY #30 tablet 09/23/16 Unknown Rx Omeprazole Magnesium [PriLOSEC Otc] 20 mg PO QDAY #30 tablet.dr 09/23/16 Unknown Rx predniSONE [Deltasone] 40 mg PO QDAY #8 tab 09/23/16 Unknown Rx Allergies Allergy/AdvReac Type Severity Reaction Status Date / Time oxycodone HCl [From Percocet] Allergy Angioedema Verified 07/10/16 17:11 Penicillins Allergy Angioedema Verified 07/10/16 17:11 prednisone Allergy Unknown Verified 07/10/16 17:11 bupropion HCl AdvReac Unknown Verified 07/10/16 17:11 [From Wellbutrin] divalproex sodium AdvReac Unknown Verified 07/10/16 17:11 [From Depakote] fluoxetine HCl [From Prozac] AdvReac Unknown Verified 07/10/16 17:11 lithium AdvReac Unknown Verified 07/10/16 17:11 ED Review of Systems ROS: Stated complaint: DEPRESSION DRUG RELASPE Other details as noted in HPI Constitutional: denies: chills, fever Eyes: denies: eye pain, eye discharge, vision change ENT: denies: ear pain, throat pain Respiratory: denies: cough, shortness of breath, wheezing Cardiovascular: denies: chest pain, palpitations Endocrine: no symptoms reported Gastrointestinal: denies: abdominal pain, nausea, diarrhea Genitourinary: denies: urgency, dysuria, discharge Musculoskeletal: denies: back pain, joint swelling, arthralgia Skin: denies: rash, lesions Neurological: denies: headache, weakness, paresthesias Psychiatric: anxiety, auditory hallucinations. denies: depression Hematological/Lymphatic: denies: easy bleeding, easy bruising ED Past Medical Hx - Past Medical History Previous Medical History?: Yes Hx Hypertension: Yes Hx CVA: No Hx Heart Attack/AMI: No Hx Congestive Heart Failure: Yes Hx Diabetes: Yes Hx Deep Vein Thrombosis: No Hx Pulmonary Embolism: No Hx GERD: No Hx Liver Disease: No Hx Renal Disease: No Hx of Cancer: No Hx Sickle Cell Disease: No Hx Arthritis: No Hx Seizures: No Hx Kidney Stones: No Hx Psychiatric Treatment: Yes Hx Asthma: Yes Hx COPD: Yes Hx Tuberculosis: No Hx HIV: No - Surgical History Past Surgical History?: Yes Hx Coronary Stent: No Hx Open Heart Surgery: No Hx Pacemaker: No Hx Internal Defibrillator: No Hx Cholecystectomy: No Hx Appendectomy: No Hx Breast Surgery: No Additional Surgical History: spinal fusion, left hip - Social History Smoking Status: Heavy Tobacco Smoker Substance Use Type: Alcohol, Prescribed, Methamphetamines - Medications Home Medications: Home Medications Medication Instructions Recorded Confirmed Last Taken Type Citalopram Hydrobromide [celeXA] 40 mg PO DAILY #30 tablet 08/14/16 09/23/1617 Rx Albuterol Sulfate [Albuterol 0.63% 0.63 mg IH Q4HR PRN #2 ml 09/23/16 Unknown Rx NEBS] Albuterol Sulfate [Proair 90 mcg IH Q4HR PRN #2 aer.pow.ba 09/23/16 Unknown Rx Respiclick] Aspirin 81 mg PO DAILY #30 tab.chew 09/23/16 Unknown Rx Insulin Aspart [NovoLOG Flexpen] 12 units SQ AC #10 insuln.pen 09/23/16 Unknown Rx Ipratropium [place] [Atrovent Hfa] 12.9 gm IH Q4HR #2 hfa.aer.ad 09/23/16 Unknown Rx Ipratropium [Atrovent NEB] 0.5 mg IH Q4HR #2 ml 09/23/16 Unknown Rx LORazepam [Ativan] 2 mg PO BID PRN #10 tablet 09/23/16 Unknown Rx Lisinopril [Zestril TAB] 25 mg PO QDAY #30 tablet 09/23/16 Unknown Rx Omeprazole Magnesium [PriLOSEC Otc] 20 mg PO QDAY #30 tablet.dr 09/23/16 Unknown Rx predniSONE [Deltasone] 40 mg PO QDAY #8 tab 09/23/16 Unknown Rx ED Physical Exam - General Limitations: No Limitations General appearance: alert, in no apparent distress - Head Head exam: Present: atraumatic, normocephalic - Eye Eye exam: Present: normal appearance - ENT ENT exam: Present: mucous membranes moist - Neck Neck exam: Present: normal inspection - Respiratory Respiratory exam: Present: normal lung sounds bilaterally. Absent: respiratory distress - Cardiovascular Cardiovascular Exam: Present: regular rate, normal rhythm. Absent: systolic murmur, diastolic murmur, rubs, gallop - GI/Abdominal GI/Abdominal exam: Present: soft, normal bowel sounds - Extremities Exam Extremities exam: Present: normal inspection - Back Exam Back exam: Present: normal inspection - Neurological Exam Neurological exam: Present: alert, oriented X3 - Psychiatric Psychiatric exam: Present: depressed, anxious. Absent: homicidal ideation, suicidal ideation - Skin Skin exam: Present: warm, dry, intact, normal color. Absent: rash ED Course Vital Signs 01/18/17 01/18/17 10:44 13:55 Temperature 98.4 F Pulse Rate 83 79 Respiratory 24 18 Rate Blood Pressure 142/86 Blood Pressure 145/107 [Left] O2 Sat by Pulse 97 96 Oximetry - Reevaluation(s) Reevaluation #1: 01/18/17 13:52 Discussed patient's case with mental health worker patient will be evaluated. Reevaluation #2: 01/18/17 15:52 Patient states that she is very anxious because of hearing voices I will write 1013 due to concern that patient may be a danger to herself. Patient has been medically cleared. 01/18/17 15:53 Reevaluation #3: 01/18/17 15:56 I will give patient one dose of [place] for her back pain. ED Medical Decision Making - Lab Data Result diagrams: 01/18/17 12:32 01/18/17 12:32 Lab Results 01/18/17 01/18/17 01/18/17 Range/Units 12:32 12:32 Unknown WBC 8.3 (4.5-11.0) K/mm3 RBC 4.80 (3.65-5.03) M/mm3 Hgb 14.3 (10.1-14.3) gm/dl Hct 43.1 H (30.3-42.9) % MCV 90 (79-97) fl MCH 30 (28-32) pg MCHC 33 (30-34) % RDW 13.6 (13.2-15.2) % Plt Count 244 (140-440) K/mm3 Lymph % (Auto) 17.9 (13.4-35.0) % [place] % (Auto) 5.2 (0.0-7.3) % Eos % (Auto) 0.5 (0.0-4.3) % Baso % (Auto) 0.4 (0.0-1.8) % Lymph # 1.5 (1.2-5.4) K/mm3 [place] # 0.4 (0.0-0.8) K/mm3 Eos # 0.0 (0.0-0.4) K/mm3 Baso # 0.0 (0.0-0.1) K/mm3 Seg Neutrophils % 76.0 H (40.0-70.0) % Seg Neutrophils # 6.3 (1.8-7.7) K/mm3 Sodium 141 (137-145) mmol/L Potassium 4.3 (3.6-5.0) mmol/L Chloride 100.4 (98-107) mmol/L Carbon Dioxide 27 (22-30) mmol/L Anion Gap 18 mmol/L BUN 8 (7-17) mg/dL Creatinine 0.6 L (0.7-1.2) mg/dL Estimated GFR > 60 ml/min BUN/Creatinine Ratio 13.33 % Glucose 142 H (65-100) mg/dL Calcium 9.6 (8.4-10.2) mg/dL Urine WBC (Auto) 3.0 (0.0-6.0) /HPF Urine RBC (Auto) 21.0 (0.0-6.0) /HPF U Epithel Cells (Auto) 33.0 H (0-13.0) /HPF Urine Bacteria (Auto) 2+ (Negative) /HPF Urine Mucus 3+ /HPF Urine Opiates Screen Urine Methadone Screen Ur Barbiturates Screen Ur Phencyclidine Scrn Ur Amphetamines Screen U Benzodiazepines Scrn Urine Cocaine Screen U Marijuana (THC) Screen Drugs of Abuse Note 01/18/17 Range/Units Unknown WBC (4.5-11.0) K/mm3 RBC (3.65-5.03) M/mm3 Hgb (10.1-14.3) gm/dl Hct (30.3-42.9) % MCV (79-97) fl MCH (28-32) pg MCHC (30-34) % RDW (13.2-15.2) % Plt Count (140-440) K/mm3 Lymph % (Auto) (13.4-35.0) % [place] % (Auto) (0.0-7.3) % Eos % (Auto) (0.0-4.3) % Baso % (Auto) (0.0-1.8) % Lymph # (1.2-5.4) K/mm3 [place] # (0.0-0.8) K/mm3 Eos # (0.0-0.4) K/mm3 Baso # (0.0-0.1) K/mm3 Seg Neutrophils % (40.0-70.0) % Seg Neutrophils # (1.8-7.7) K/mm3 Sodium (137-145) mmol/L Potassium (3.6-5.0) mmol/L Chloride (98-107) mmol/L Carbon Dioxide (22-30) mmol/L Anion Gap mmol/L BUN (7-17) mg/dL Creatinine (0.7-1.2) mg/dL Estimated GFR ml/min BUN/Creatinine Ratio % Glucose (65-100) mg/dL Calcium (8.4-10.2) mg/dL Urine WBC (Auto) (0.0-6.0) /HPF Urine RBC (Auto) (0.0-6.0) /HPF U Epithel Cells (Auto) (0-13.0) /HPF Urine Bacteria (Auto) (Negative) /HPF Urine Mucus /HPF Urine Opiates Screen Presumptive negative Urine Methadone Screen Presumptive negative Ur Barbiturates Screen Presumptive negative Ur Phencyclidine Scrn Presumptive negative Ur Amphetamines Screen Presumptive positive U Benzodiazepines Scrn Presumptive positive Urine Cocaine Screen Presumptive negative U Marijuana (THC) Screen Presumptive negative Drugs of Abuse Note Disclamer - Medical Decision Making Chief medical diagnosis: Substance induced mood disorder Differential medical diagnosis: Psychosis, bipolar disorder With CBC, CMP, urinalysis, urine drug screen Patient is most likely having a psychotic episode given that she has not been on her medications for at least a month Will have patient be evaluated by mental health worker and will get patient oral Zyprexa because patient is becoming very anxious. Critical care attestation.: If time is entered above; I have spent that time in minutes in the direct care of this critically ill patient, excluding procedure time. ED Disposition Clinical Impression: Acute anxiety, Methamphetamine use Schizophrenia Qualifiers: Schizophrenia type: unspecified Qualified Code(s): F20.9 - Schizophrenia, unspecified Disposition: DC/TX-65 PSY HOSP/PSY UNIT Is pt being admited?: No Does the pt Need Aspirin: No Condition: Stable Referrals: PRIMARY CARE, [Primary Care Provider] - 3-5 Days Time of Disposition: 15:57
[2017-01-18 13:05] LABS: Anion Gap 18 mmol/L; BUN/Creatinine Ratio 13.33; Blood Urea Nitrogen 8 mg/dL (7-17); Calcium 9.6 mg/dL (8.4-10.2); Carbon Dioxide 27 mmol/L (22-30); Chloride 100.4 mmol/L (98-107); Glucose 142 mg/dL (65-100); Potassium 4.3 mmol/L (3.6-5.0); Sodium 141 mmol/L (137-145)
[2017-01-18] MEDS ORDERED: MOTRIN PO ONE (15:50)
[2017-01-18] MEDS ORDERED: ATIVAN PO ONE (15:53)
[2017-01-18] MEDS: TYLENOL PO PRN (16:11)
[2017-01-19 11:05] VITALS: BP 145/87
[2017-01-19] MEDS: TYLENOL PO PRN (13:57)
== END 2017-01-19 17:07 ==
LOC: ED 10:15
DX: F20.9 Schizophrenia, unspecified (principal); F41.9 Anxiety disorder, unspecified; F31.9 Bipolar disorder, unspecified; F15.90 Other stimulant use, unspecified, uncomplicated; I10 Essential (primary) hypertension; E11.9 Type 2 diabetes mellitus without complications; I50.9 Heart failure, unspecified; J45.909 Unspecified asthma, uncomplicated; F17.210 Nicotine dependence, cigarettes, uncomplicated; Z88.0 Allergy status to penicillin; Z88.8 Allergy status to other drugs, medicaments and biological substances; Z79.82 Long term (current) use of aspirin; Z79.4 Long term (current) use of insulin
CPT/HCPCS: 36415; 80048; 80307; 81015; 82962; 85025; 99285

== ENCOUNTER 2017-05-05 17:17 | Emergency (ER) | payer MEDICARE ==
[2017-05-05 18:37] LABS: Basophils % (Auto) 0.8 % (0.0-1.8); Eosinophils % (Auto) 2.2 % (0.0-4.3); Hematocrit 42.1 % (30.3-42.9); Hemoglobin 13.7 gm/dl (10.1-14.3); Mean Corpuscular HGB Conc 33 % (30-34); Mean Corpuscular Hemoglobin 28 pg (28-32); Mean Corpuscular Volume 88 fl (79-97); Platelet Count 276 K/mm3 (140-440); Red Blood Count 4.81 M/mm3 (3.65-5.03); Red Cell Distribution Width 14.5 % (13.2-15.2); White Blood Count 10.1 K/mm3 (4.5-11.0)
--- NOTE | 2017-05-05 18:46 | XRay Report ---
FINAL REPORT PROCEDURE: XR CHEST 1V AP TECHNIQUE: Chest radiograph anteroposterior view. CPT 77400 HISTORY: Dyspnea COMPARISON: No prior studies are available for comparison. FINDINGS: Heart: Normal. Mediastinum/Vessels: Normal. Lungs/Pleural space: No infiltrate, effusion, or pneumothorax. Bony thorax: No acute osseous abnormality. Life support devices: None. IMPRESSION: No radiographic evidence of acute cardiopulmonary abnormality.
[2017-05-05 18:58] LABS: Anion Gap 17 mmol/L; BUN/Creatinine Ratio 20; Blood Urea Nitrogen 12 mg/dL (7-17); Calcium 9.5 mg/dL (8.4-10.2); Carbon Dioxide 28 mmol/L (22-30); Chloride 100.7 mmol/L (98-107); Glucose 259 mg/dL (65-100); Sodium 142 mmol/L (137-145)
[2017-05-05] MEDS ORDERED: ATROVENT IH ONE (19:31)
[2017-05-05] MEDS ORDERED: PROVENTIL IH ONE (19:34)
[2017-05-05] MEDS ORDERED: ATIVAN IV ONE (19:35)
--- NOTE | 2017-05-05 21:41 | Emergency Department Report ---
ED Shortness of Breath HPI - General Chief Complaint: Dyspnea/Respdistress Stated Complaint: BID Time Seen by Provider: 05/05/17 19:20 Source: patient, EMS Mode of arrival: Stretcher Limitations: No Limitations - History of Present Illness Initial Comments: Patient with the flu 3 weeks ago on top of history of COPD. Was on steroids for a while but now off. She did get better but then had a bout of AGE 3 days ago and has declined with breathing. Now has increased rib pain as well after coughing so much. Was supposed to go to the PCP on the but the weather prevented that. Home nurse came today and saw vitals and sent to ER. She is on oxygen at home prn. She has bipolar and reports ativan is needed whenever they give her steroids. MD Complaint: shortness of breath -: Gradual, days(s) (2) Radiation: back Severity: moderate Pain Scale: 6 Quality: dull, sharp Consistency: constant, intermittent Improves With: rest Worsens With: coughing, inspiration Known History Of: COPD, diabetes Context: recent URI, recent illness, elevated blood glucose Associated Symptoms: chest pain, pain with inspiration - Related Data Previous Rx's Medication Instructions Recorded Last Taken Type Citalopram Hydrobromide [celeXA] 40 mg PO DAILY #30 tablet 08/14/16 09/18/16 Rx Albuterol Sulfate [Albuterol 0.63% 0.63 mg IH Q4HR PRN #2 ml 09/23/16 Unknown Rx NEBS] Albuterol Sulfate [Proair 90 mcg IH Q4HR PRN #2 aer.pow.ba 09/23/16 Unknown Rx Respiclick] Aspirin 81 mg PO DAILY #30 tab.chew 09/23/16 Unknown Rx Insulin Aspart [NovoLOG Flexpen] 12 units SQ AC #10 insuln.pen 09/23/16 Unknown Rx Ipratropium [place] [Atrovent Hfa] 12.9 gm IH Q4HR #2 hfa.aer.ad 09/23/16 Unknown Rx Ipratropium [Atrovent NEB] 0.5 mg IH Q4HR #2 ml 09/23/16 Unknown Rx LORazepam [Ativan] 2 mg PO BID PRN #10 tablet 09/23/16 Unknown Rx Lisinopril [Zestril TAB] 25 mg PO QDAY #30 tablet 09/23/16 Unknown Rx Omeprazole Magnesium [PriLOSEC Otc] 20 mg PO QDAY #30 tablet. 09/23/16 Unknown Rx ALBUTEROL NEB's [Proventil 0.083% 2.5 mg IH TID PRN #25 neb 05/05/17 Unknown Rx NEBS] Cyclobenzaprine [Flexeril] 10 mg PO TID PRN 10 Days #30 tablet 05/05/17 Unknown Rx methylPREDNISolone [Medrol] 4 mg PO QAM #1 tab.ds.pk 05/05/17 Unknown Rx Allergies Allergy/AdvReac Type Severity Reaction Status Date / Time oxycodone HCl [From Percocet] Allergy Angioedema Verified 07/10/16 17:11 Penicillins Allergy Angioedema Verified 07/10/16 17:11 prednisone Allergy Unknown Verified 07/10/16 17:11 bupropion HCl AdvReac Unknown Verified 07/10/16 17:11 [From Wellbutrin] divalproex sodium AdvReac Unknown Verified 07/10/16 17:11 [From Depakote] fluoxetine HCl [From Prozac] AdvReac Unknown Verified 07/10/16 17:11 lithium AdvReac Unknown Verified 07/10/16 17:11 ED Review of Systems ROS: Stated complaint: BID Other details as noted in HPI Constitutional: see HPI. denies: chills, fever Eyes: denies: eye pain, eye discharge, vision change ENT: denies: ear pain, throat pain Respiratory: see HPI. denies: cough, shortness of breath, wheezing Cardiovascular: denies: chest pain, palpitations Endocrine: no symptoms reported, see HPI Gastrointestinal: denies: abdominal pain, nausea, diarrhea Genitourinary: denies: urgency, dysuria, discharge Musculoskeletal: denies: back pain, joint swelling, arthralgia Skin: denies: rash, lesions Neurological: denies: headache, weakness, paresthesias Psychiatric: denies: anxiety, depression Hematological/Lymphatic: denies: easy bleeding, easy bruising ED Past Medical Hx - Past Medical History Hx Hypertension: Yes Hx CVA: No Hx Heart Attack/AMI: No Hx Congestive Heart Failure: Yes Hx Diabetes: Yes Hx Deep Vein Thrombosis: No Hx Pulmonary Embolism: No Hx GERD: No Hx Liver Disease: No Hx Renal Disease: No Hx Sickle Cell Disease: No Hx Arthritis: No Hx Seizures: No Hx Kidney Stones: No Hx Psychiatric Treatment: Yes Hx Asthma: Yes Hx COPD: Yes Hx Tuberculosis: No Hx HIV: No - Surgical History Hx Coronary Stent: No Hx Open Heart Surgery: No Hx Pacemaker: No Hx Internal Defibrillator: No Hx Cholecystectomy: No Hx Appendectomy: No Hx Breast Surgery: No Additional Surgical History: spinal fusion, left hip - Social History Smoking Status: Current Every Day Smoker Substance Use Type: None - Medications Home Medications: Home Medications Medication Instructions Recorded Confirmed Last Taken Type Citalopram Hydrobromide [celeXA] 40 mg PO DAILY #30 tablet 08/14/16 01/19/17 Rx Albuterol Sulfate [Albuterol 0.63% 0.63 mg IH Q4HR PRN #2 ml 09/23/16 01/19/17 Unknown Rx NEBS] Albuterol Sulfate [Proair 90 mcg IH Q4HR PRN #2 aer.pow.ba 09/23/16 01/19/17 Unknown Rx Respiclick] Aspirin 81 mg PO DAILY #30 tab.chew 09/23/16 01/19/17 Unknown Rx Insulin Aspart [NovoLOG Flexpen] 12 units SQ AC #10 insuln.pen 09/23/16 Unknown Rx Ipratropium [place] [Atrovent Hfa] 12.9 gm IH Q4HR #2 hfa.aer.ad 09/23/16 Unknown Rx Ipratropium [Atrovent NEB] 0.5 mg IH Q4HR #2 ml 09/23/16 01/19/17 Unknown Rx LORazepam [Ativan] 2 mg PO BID PRN #10 tablet 09/23/16 01/19/17 Unknown Rx Lisinopril [Zestril TAB] 25 mg PO QDAY #30 tablet 09/23/16 01/19/17 Unknown Rx Omeprazole Magnesium [PriLOSEC Otc] 20 mg PO QDAY #30 tablet.dr 09/23/16 Unknown Rx ALBUTEROL NEB's [Proventil 0.083% 2.5 mg IH TID PRN #25 neb 05/05/17 Unknown Rx NEBS] Cyclobenzaprine [Flexeril] 10 mg PO TID PRN 10 Days #30 tablet 05/05/17 Unknown Rx methylPREDNISolone [Medrol] 4 mg PO QAM #1 tab.ds.pk 05/05/17 Unknown Rx ED Physical Exam - General Limitations: No Limitations General appearance: alert, in no apparent distress - Head Head exam: Present: atraumatic, normocephalic - Eye Eye exam: Present: normal appearance - ENT ENT exam: Present: mucous membranes moist - Neck Neck exam: Present: normal inspection - Respiratory Respiratory exam: Present: wheezes (bilaterally), chest wall tenderness. Absent : respiratory distress - Cardiovascular Cardiovascular Exam: Present: regular rate, normal rhythm. Absent: systolic murmur, diastolic murmur, rubs, gallop - GI/Abdominal GI/Abdominal exam: Present: soft, normal bowel sounds - Extremities Exam Extremities exam: Present: normal inspection - Back Exam Back exam: Present: normal inspection - Neurological Exam Neurological exam: Present: alert, oriented X3 - Psychiatric Psychiatric exam: Present: normal affect, normal mood - Skin Skin exam: Present: warm, dry, intact, normal color. Absent: rash ED Course Vital Signs 05/05/17 05/05/17 05/05/17 17:27 17:28 17:30 Temperature 98.3 F Pulse Rate 98 H 96 H 96 H Pulse Rate [ Anterior Bilateral Throughout] Respiratory 25 H 20 25 H Rate Respiratory Rate [Anterior Bilateral Throughout] Blood Pressure 136/80 136/80 Blood Pressure [Left] O2 Sat by Pulse 99 95 99 Oximetry 05/05/17 05/05/17 05/05/17 17:46 17:50 18:00 Temperature Pulse Rate 98 H Pulse Rate [ Anterior Bilateral Throughout] Respiratory 23 23 Rate Respiratory Rate [Anterior Bilateral Throughout] Blood Pressure 167/97 167/97 Blood Pressure [Left] O2 Sat by Pulse 93 96 96 Oximetry 05/05/17 05/05/17 05/05/17 18:16 18:30 18:46 Temperature Pulse Rate Pulse Rate [ Anterior Bilateral Throughout] Respiratory 22 19 24 Rate Respiratory Rate [Anterior Bilateral Throughout] Blood Pressure 193/94 193/94 193/94 Blood Pressure [Left] O2 Sat by Pulse 96 96 91 Oximetry 05/05/17 05/05/17 05/05/17 19:00 19:16 19:30 Temperature Pulse Rate 90 87 Pulse Rate [ Anterior Bilateral Throughout] Respiratory 12 21 18 Rate Respiratory Rate [Anterior Bilateral Throughout] Blood Pressure 109/43 127/50 127/50 Blood Pressure [Left] O2 Sat by Pulse 96 95 99 Oximetry 05/05/17 05/05/17 05/05/17 19:46 19:56 20:00 Temperature 98.5 F Pulse Rate 95 H 97 H 92 H Pulse Rate [ Anterior Bilateral Throughout] Respiratory 22 19 18 Rate Respiratory Rate [Anterior Bilateral Throughout] Blood Pressure 127/50 127/50 Blood Pressure 127/50 [Left] O2 Sat by Pulse 97 97 96 Oximetry 05/05/17 05/05/17 05/05/17 20:07 20:16 20:30 Temperature Pulse Rate 87 87 Pulse Rate [ 89 Anterior Bilateral Throughout] Respiratory 16 19 Rate Respiratory 18 Rate [Anterior Bilateral Throughout] Blood Pressure 162/86 162/86 Blood Pressure [Left] O2 Sat by Pulse 96 96 Oximetry 05/05/17 05/05/17 20:46 21:00 Temperature Pulse Rate 94 H 100 H Pulse Rate [ Anterior Bilateral Throughout] Respiratory 20 19 Rate Respiratory Rate [Anterior Bilateral Throughout] Blood Pressure 151/68 151/68 Blood Pressure [Left] O2 Sat by Pulse 95 94 Oximetry ED Medical Decision Making - Lab Data Result diagrams: 05/05/17 18:09 05/05/17 18:09 unremarkable labs other than elevated glucose c/w current steroid use. Tropinins wnl x 2 and bnp normal. - EKG Data -: EKG Interpreted by Me EKG shows normal: sinus rhythm, axis, intervals, ST-T waves Rate: normal - EKG Data Interpretation: normal EKG - Radiology Data Radiology results: report reviewed CXR: no acute process. - Medical Decision Making Patient with COPD exacerbation and will do steroids and will give muscle relaxor for rib pain from strain after coughing. She did much better after breathing treatments and steroids IV. Critical care attestation.: If time is entered above; I have spent that time in minutes in the direct care of this critically ill patient, excluding procedure time. ED Disposition Clinical Impression: COPD with exacerbation Muscle strain of chest wall Qualifiers: Encounter type: sequela Qualified Code(s): S29.011S - Strain of muscle and tendon of front wall of thorax, sequela Disposition: DC-01 TO HOME OR SELFCARE Is pt being admited?: No Does the pt Need Aspirin: No Condition: Good Instructions: Muscle Strain (ED), Chronic Obstructive Pulmonary Disease (ED) Prescriptions: ALBUTEROL NEB's [Proventil 0.083% NEBS] 2.5 mg IH TID PRN #25 neb PRN Reason: Wheezing Cyclobenzaprine [Flexeril] 10 mg PO TID PRN 10 Days #30 tablet PRN Reason: Muscle Spasm methylPREDNISolone [Medrol] 4 mg PO QAM #1 tab.ds.pk Referrals: [facility] [Outside] - 3-5 Days Time of Disposition: 21:51
[2017-05-05 22:04] VITALS: BP 122/74
== END 2017-05-05 22:03 | disposition home or self-care (01) ==
LOC: ED 17:17
DX: J44.1 Chronic obstructive pulmonary disease with (acute) exacerbation (principal); S29.011A Strain of muscle and tendon of front wall of thorax, initial encounter; E11.9 Type 2 diabetes mellitus without complications; I10 Essential (primary) hypertension; F17.200 Nicotine dependence, unspecified, uncomplicated; Z79.4 Long term (current) use of insulin; Z88.8 Allergy status to other drugs, medicaments and biological substances; X50.9XXA Other and unspecified overexertion or strenuous movements or postures, initial encounter; Y93.89 Activity, other specified; Y92.89 Other specified places as the place of occurrence of the external cause; Y99.8 Other external cause status
CPT/HCPCS: 36415; 71010; 80048; 83880; 84484; 85025; 93005; 93010; 94644; 96374; 96375; 99285; J2060; J2920

== ENCOUNTER 2017-05-07 03:41 | Inpatient (IN) | payer MEDICARE ==
--- NOTE | 2017-05-07 04:37 | XRay Report ---
FINAL REPORT EXAM: XR CHEST ROUTINE 2V HISTORY: Shortness of breath TECHNIQUE: PA and lateral views of the chest were submitted. Comparison is made to the study of 05/05/2017. FINDINGS: The heart size and mediastinum appear normal. The lungs are clear. Pleural fluid is not seen. The skeletal structures reveal multilevel disc degeneration in the thoracic spine. There also a mild dextroscoliosis of the thoracic spine. IMPRESSION: No active chest disease.
[2017-05-07 06:05] LABS: Basophils % (Auto) 0.9 % (0.0-1.8); Hematocrit 39.9 % (30.3-42.9); Hemoglobin 13.5 gm/dl (10.1-14.3); Mean Corpuscular HGB Conc 34 % (30-34); Mean Corpuscular Hemoglobin 30 pg (28-32); Mean Corpuscular Volume 88 fl (79-97); Platelet Count 253 K/mm3 (140-440); Red Blood Count 4.55 M/mm3 (3.65-5.03); Red Cell Distribution Width 14.4 % (13.2-15.2); White Blood Count 8.9 K/mm3 (4.5-11.0)
[2017-05-07 06:07] LABS: Eosinophils % (Auto) 2.3 % (0.0-4.3)
[2017-05-07] MEDS ORDERED: ATROVENT IH ONE (06:18)
[2017-05-07] MEDS ORDERED: PROVENTIL IH ONE (06:18)
[2017-05-07] MEDS ORDERED: ATIVAN IV ONE (06:19)
[2017-05-07 06:22] LABS: Anion Gap 20 mmol/L; BUN/Creatinine Ratio 23; Blood Urea Nitrogen 18 mg/dL (7-17); Calcium 9.5 mg/dL (8.4-10.2); Carbon Dioxide 24 mmol/L (22-30); Glucose 230 mg/dL (65-100); Potassium 4.5 mmol/L (3.6-5.0); Sodium 139 mmol/L (137-145)
--- NOTE | 2017-05-07 06:24 | Emergency Department Report ---
HPI - General Chief Complaint: Dyspnea/Respdistress Time Seen by Provider: 05/07/17 06:02 - HPI HPI: This is a 51-year-old female presents to the emergency department from home with complaint of shortness of breath, productive cough, and wheezing. The patient has a history of asthma, CHF, COPD, diabetes, hypertension as well as a psychiatric history of bipolar disorder. She is a tobacco user and continues to smoke. She was seen here 2 days ago for similar symptoms and sent home with some steroids and other prescriptions but did not get them filled because she says she does not have the money. Her primary care physician is Dr. Rosendo Lacy but she has not seen her regarding her symptoms. No recent travel or sick contacts at home. ED Past Medical Hx - Past Medical History Previous Medical History?: Yes Hx Hypertension: Yes Hx CVA: No Hx Heart Attack/AMI: No Hx Congestive Heart Failure: Yes Hx Diabetes: Yes Hx Deep Vein Thrombosis: No Hx Pulmonary Embolism: No Hx GERD: No Hx Liver Disease: No Hx Renal Disease: No Hx Sickle Cell Disease: No Hx Arthritis: No Hx Seizures: No Hx Kidney Stones: No Hx Psychiatric Treatment: Yes Hx Asthma: Yes Hx COPD: Yes Hx Tuberculosis: No Hx HIV: No - Surgical History Hx Coronary Stent: No Hx Open Heart Surgery: No Hx Pacemaker: No Hx Internal Defibrillator: No Hx Cholecystectomy: No Hx Appendectomy: No Hx Breast Surgery: No Additional Surgical History: spinal fusion, left hip, partial hysterectomy - Social History Smoking Status: Current Every Day Smoker Substance Use Type: None - Medications Home Medications: Home Medications Medication Instructions Recorded Confirmed Last Taken Type Citalopram Hydrobromide [celeXA] 40 mg PO DAILY #30 tablet 08/14/16 01/19/17 Rx Albuterol Sulfate [Albuterol 0.63% 0.63 mg IH Q4HR PRN #2 ml 09/23/16 01/19/17 Unknown Rx NEBS] Albuterol Sulfate [Proair 90 mcg IH Q4HR PRN #2 aer.pow.ba 09/23/16 01/19/17 Unknown Rx Respiclick] Aspirin 81 mg PO DAILY #30 tab.chew 09/23/16 01/19/17 Unknown Rx Insulin Aspart [NovoLOG Flexpen] 12 units SQ AC #10 insuln.pen 09/23/16 Unknown Rx Ipratropium Jean [Atrovent Hfa] 12.9 gm IH Q4HR #2 hfa.aer.ad 09/23/16 Unknown Rx Ipratropium [Atrovent NEB] 0.5 mg IH Q4HR #2 ml 09/23/16 01/19/17 Unknown Rx LORazepam [Ativan] 2 mg PO BID PRN #10 tablet 09/23/16 01/19/17 Unknown Rx Lisinopril [Zestril TAB] 25 mg PO QDAY #30 tablet 09/23/16 01/19/17 Unknown Rx Omeprazole Magnesium [PriLOSEC Otc] 20 mg PO QDAY #30 tablet. 09/23/16 Unknown Rx ALBUTEROL NEB's [Proventil 0.083% 2.5 mg IH TID PRN #25 neb 05/05/17 Unknown Rx NEBS] Cyclobenzaprine [Flexeril] 10 mg PO TID PRN 10 Days #30 tablet 05/05/17 Unknown Rx methylPREDNISolone [Medrol] 4 mg PO QAM #1 tab.ds.pk 05/05/17 Unknown Rx ED Review of Systems ROS: Stated complaint: ANN Other details as noted in HPI Comment: All other systems reviewed and negative Constitutional: denies: chills, fever Eyes: denies: eye pain, eye discharge, vision change ENT: denies: ear pain, throat pain Respiratory: cough, shortness of breath, wheezing Cardiovascular: denies: chest pain, palpitations Gastrointestinal: denies: abdominal pain, nausea, diarrhea Genitourinary: denies: urgency, dysuria, discharge Musculoskeletal: denies: back pain, joint swelling, arthralgia Skin: denies: rash, lesions Neurological: denies: headache, weakness, paresthesias Physical Exam - Physical Exam Vital Signs: Vital Signs 05/07/17 05/07/17 04:00 04:24 Temperature 97.8 F Respiratory 22 Rate O2 Sat by Pulse 100 Oximetry Physical Exam: GENERAL: The patient is well-developed well-nourished. HENT: Normocephalic. Atraumatic. Patient has moist mucous membranes. EYES: Extraocular motions are intact. Pupils equal reactive to light bilaterally. NECK: Supple. Trachea is midline. CHEST/LUNGS: Moderate wheezing throughout the chest. There is tachypnea. No accessory muscle use. A dry hacking cough is heard during examination. There is no respiratory distress noted. HEART/CARDIOVASCULAR: Regular. There is no tachycardia. There is no murmur. ABDOMEN: Abdomen is soft, nontender. Patient has normal bowel sounds. Obese habitus. SKIN: Skin is warm and dry. NEURO: The patient is awake, alert, and oriented. The patient is cooperative. The patient has no focal neurologic deficits. The patient has normal speech. MUSCULOSKELETAL: There is no tenderness or deformity. There is no limitation range of motion. There is no evidence of acute injury. ED Course Vital Signs 05/07/17 05/07/17 04:00 04:24 Temperature 97.8 F Respiratory 22 Rate O2 Sat by Pulse 100 Oximetry ED Medical Decision Making - Lab Data Result diagrams: 05/07/17 04:43 05/07/17 04:43 - EKG Data -: EKG Interpreted by Me EKG shows normal: sinus rhythm, axis, intervals, QRS complexes, ST-T waves Rate: normal - EKG Data When compared to previous EKG there are: previous EKG unavailable Interpretation: normal EKG - Radiology Data Radiology results: image reviewed interpreted by me: Chest x-ray does not show any acute process. There are no pleural effusions, obvious pneumonia and there is no pneumothorax. - Medical Decision Making 51-year-old female presents with what appears to be a continuation of shortness of breath, wheezing and bronchospasm. Labs have been unremarkable. Chest x- ray did not show any pneumonia or pleural effusions. Vital signs have been stable. However the patient has received steroids and multiple breathing treatments and still continues to have a moderate wheeze and bronchospasm. This reason the patient will be admitted to the hospital for further evaluation and treatment and has been accepted by the hospitalist service and the [facility]. - Differential Diagnosis COPD, PE, Pneumonia, Asthma Critical Care Time: No Critical care attestation.: If time is entered above; I have spent that time in minutes in the direct care of this critically ill patient, excluding procedure time. ED Disposition Clinical Impression: Morbid obesity with BMI of 50.0-59.9, adult, Diabetes mellitus type 2 in obese , Acute exacerbation of chronic obstructive pulmonary disease (COPD) Disposition: OP ADMIT IP TO THIS HOSP Is pt being admited?: Yes Condition: Stable Instructions: Diabetes Mellitus Type 2 in Adults (ED), Chronic Obstructive Pulmonary Disease (ED) Referrals: GLORY BOUDREAUX MD [Primary Care Provider] - 3-5 Days Time of Disposition: 09:00
[2017-05-07] MEDS ORDERED: TYLENOL PO PRN (09:28)
[2017-05-07] MEDS ORDERED: MILK OF MAGNESIA PO PRN (09:28)
[2017-05-07] MEDS ORDERED: DULCOLAX PR PRN (09:28)
[2017-05-07] MEDS ORDERED: FLEXERIL PO PRN (09:43)
--- NOTE | 2017-05-07 09:52 | History and Physical Report ---
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 Patient developed shortness of breath and productive cough with greenish/ brown sputum. She has had progressive worsening of shortness of breath. This morning while going to the bathroom, shortly thereafter, she felt like she could not catch her breath and got worried so called 911 and brought her to the Emergency Department. She is not on oxygen at home. Patient denies she has had no fevers, chills, or night sweats. No hx of recurrent pneumonia. He has no sick contact, TB exposure. Past History Past Medical History: COPD, diabetes, heart failure, hypertension, other ( bipolar and depression) Past Surgical History: No surgical history Social history: smoking. denies: alcohol abuse Family history: hypertension Medications and Allergies Allergies Allergy/AdvReac Type Severity Reaction Status Date / Time oxycodone HCl [From Percocet] Allergy Angioedema Verified 07/10/16 17:11 Penicillins Allergy Angioedema Verified 07/10/16 17:11 prednisone Allergy Unknown Verified 07/10/16 17:11 bupropion HCl AdvReac Unknown Verified 07/10/16 17:11 [From Wellbutrin] divalproex sodium AdvReac Unknown Verified 07/10/16 17:11 [From Depakote] fluoxetine HCl [From Prozac] AdvReac Unknown Verified 07/10/16 17:11 lithium AdvReac Unknown Verified 07/10/16 17:11 Home Medications Medication Instructions Recorded Confirmed Last Taken Type Citalopram Hydrobromide [celeXA] 40 mg PO DAILY #30 tablet 08/14/16 05/07/17 Rx Albuterol Sulfate [Proair 90 mcg IH Q4HR PRN #2 aer.pow.ba 09/23/16 05/07/17 Unknown Rx Respiclick] Aspirin 81 mg PO DAILY #30 tab.chew 09/23/16 05/07/17 Unknown Rx Insulin Aspart [NovoLOG Flexpen] 12 units SQ AC #10 insuln.pen 09/23/16 Unknown Rx Ipratropium [place] [Atrovent Hfa] 12.9 gm IH Q4HR #2 hfa.aer.ad 09/23/16 Unknown Rx Ipratropium [Atrovent NEB] 0.5 mg IH Q4HR #2 ml 09/23/16 05/07/17 Unknown Rx LORazepam [Ativan] 2 mg PO BID PRN #10 tablet 09/23/16 05/07/17 Unknown Rx Lisinopril [Zestril TAB] 25 mg PO QDAY #30 tablet 09/23/16 05/07/17 Unknown Rx Omeprazole Magnesium [PriLOSEC Otc] 20 mg PO QDAY #30 tablet. 09/23/16 Unknown Rx ALBUTEROL NEB's [Proventil 0.083% 2.5 mg IH TID PRN #25 neb 05/05/17 05/07/17 Unknown Rx NEBS] Cyclobenzaprine [Flexeril] 10 mg PO TID PRN 10 Days #30 tablet 05/05/17 Unknown Rx methylPREDNISolone [Medrol] 4 mg PO QAM #1 tab.ds.pk 05/05/17 05/07/17 Unknown Rx Active Meds: Active Medications Acetaminophen (Tylenol) 650 mg PO Q4H PRN PRN Reason: Pain MILD(1-3)/Fever >100.5/KHAN Albuterol (Proventil) 5 mg IH Q4H PRN PRN Reason: Shortness Of Breath Aspirin (Baby Aspirin) 81 mg PO DAILY VIC Bisacodyl (Dulcolax) 10 mg [place] QDAY PRN PRN Reason: Constipation unrelieved by MOM Cyclobenzaprine HCl (Flexeril) 10 mg PO TID PRN PRN Reason: Muscle Spasm Enoxaparin Sodium (Lovenox) 40 mg SUB-Q QDAY VIC Levofloxacin/Dextrose (Levaquin 750mg/150ml) 750 mg in 150 mls @ 100 mls/hr IV Q24HR VIC PRN Reason: Protocol Ipratropium [place] (Atrovent) 0.5 mg IH Q6HRT VIC Lisinopril (Zestril) 25 mg PO QDAY VIC Magnesium Hydroxide (Milk Of Magnesia) 30 ml PO Q4H PRN PRN Reason: Constipation Methylprednisolone Sodium Succinate (Solu-Medrol) 80 mg IV Q8HR [facility] Miscellaneous Medication (Citalopram Hydrobromide [Celexa]) 40 mg PO DAILY [facility] Miscellaneous Medication (Insulin Aspart [Novolog Flexpen]) 12 units SQ AC [facility] Miscellaneous Medication (Omeprazole Magnesium [Prilosec Otc]) 20 mg PO QDAY [facility] Morphine Sulfate (Morphine) 2 mg IV Q4H PRN PRN Reason: Pain, Moderate (4-6) Review of Systems Constitutional: no weight loss, no weight gain Ears, nose, mouth and throat: no nasal congestion, no nasal discharge, no sinus pressure Breasts: no change in shape, no swelling, no mass Cardiovascular: lightheadedness, shortness of breath, dyspnea on exertion, no chest pain, no orthopnea, no rapid/irregular heart beat Respiratory: cough, cough with sputum, shortness of breath, dyspnea on exertion Gastrointestinal: no nausea, no vomiting, no diarrhea Genitourinary Female: no urinary frequency, no urgency, no stress incontinence, no urge incontinence Rectal: no incontinence, no bleeding Musculoskeletal: no neck stiffness, no neck pain, no shooting arm pain Integumentary: no sores, no wounds, no jaundice Neurological: no seizures, no syncope, no tremors Psychiatric: no anxiety, no memory loss, no change in sleep habits, no sleep disturbances Endocrine: no cold intolerance, no heat intolerance, no polyphagia, no excessive thirst Hematologic/Lymphatic: no easy bruising, no easy bleeding Allergic/Immunologic: no urticaria, no allergic rhinitis Exam - Constitutional Vitals: Temp Pulse Resp BP Pulse Ox 98.3 F 90 20 128/88 96 05/07/17 08:20 05/07/17 08:20 05/07/17 08:20 05/07/17 08:20 05/07/17 08:20 General appearance: Present: no acute distress - EENT Eyes: Present: PERRL ENT: hearing intact - Neck Neck: Present: supple - Respiratory Respiratory effort: normal Respiratory: bilateral: CTA - Cardiovascular Rhythm: regular Heart Sounds: Present: S1 & S2 - Abdominal General gastrointestinal: Present: soft, non-tender Female genitourinary: Present: deferred - Rectal Rectal Exam: deferred - Integumentary Integumentary: Present: clear, warm, dry - Musculoskeletal Musculoskeletal: strength equal bilaterally - Psychiatric Psychiatric: appropriate mood/affect - Neurologic Neurologic: moves all extremities - Allied Health Allied health notes reviewed: nursing Results - Labs CBC & Chem 7: 05/07/17 04:43 05/07/17 04:43 Labs: Laboratory Last Values WBC 8.9 K/mm3 (4.5-11.0) 05/07/17 04:43 RBC 4.55 M/mm3 (3.65-5.03) 05/07/17 04:43 Hgb 13.5 gm/dl (10.1-14.3) 05/07/17 04:43 Hct 39.9 % (30.3-42.9) 05/07/17 04:43 MCV 88 fl (79-97) 05/07/17 04:43 MCH 30 pg (28-32) 05/07/17 04:43 MCHC 34 % (30-34) 05/07/17 04:43 RDW 14.4 % (13.2-15.2) 05/07/17 04:43 Plt Count 253 K/mm3 (140-440) 05/07/17 04:43 Lymph % (Auto) 34.8 % (13.4-35.0) 05/07/17 04:43 Sebastian % (Auto) 6.6 % (0.0-7.3) 05/07/17 04:43 Eos % (Auto) 2.3 % (0.0-4.3) 05/07/17 04:43 Baso % (Auto) 0.9 % (0.0-1.8) 05/07/17 04:43 Lymph # 3.1 K/mm3 (1.2-5.4) 05/07/17 04:43 Sebastian # 0.6 K/mm3 (0.0-0.8) 05/07/17 04:43 Eos # 0.2 K/mm3 (0.0-0.4) 05/07/17 04:43 Baso # 0.1 K/mm3 (0.0-0.1) 05/07/17 04:43 Seg Neutrophils % 55.4 % (40.0-70.0) 05/07/17 04:43 Seg Neutrophils # 4.9 K/mm3 (1.8-7.7) 05/07/17 04:43 Sodium 139 mmol/L (137-145) 05/07/17 04:43 Potassium 4.5 mmol/L (3.6-5.0) 05/07/17 04:43 Chloride 100.0 mmol/L (98-107) 05/07/17 04:43 Carbon Dioxide 24 mmol/L (22-30) 05/07/17 04:43 Anion Gap 20 mmol/L 05/07/17 04:43 BUN 18 mg/dL (7-17) H 05/07/17 04:43 Creatinine 0.8 mg/dL (0.7-1.2) 05/07/17 04:43 Estimated GFR > 60 ml/min 05/07/17 04:43 BUN/Creatinine Ratio 23 % 05/07/17 04:43 Glucose 230 mg/dL (65-100) H 05/07/17 04:43 Calcium 9.5 mg/dL (8.4-10.2) 05/07/17 04:43 Troponin T < 0.010 ng/mL (0.00-0.029) 05/07/17 04:43 NT-Pro-B Natriuret Pep 139.0 pg/mL (0-900) 05/07/17 04:43 - Imaging and Cardiology Chest x-ray: image reviewed (unremarkable ) Assessment and Plan Assessment and plan: Patient is a 51 years old female with past medical history of diabetes mellitus, hypertension, CHF, COPD and bipolar 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 Acute respiratory failure with hypoxia Patient oxygen saturation improved with 2LNC; currently SPO2 98%. No acute respiratory distress noted. Aggressive Nebulizers/Inhalers ABG when necessary Oxygen supplement Supportive care Acute COPD exacerbation Continue on Duoneb every 6 hours Started IV steroid Solumedrol Initiated empiric IV Rocephin and azithromycin Oxygen as necessary chronic diastolic Congestive heart failure/pulmonary edema Restart on Diuresis, beta blockers and ACEI/ARB Strict I&O's and daily weights Low-sodium/cardiac diet/fluid restriction Closely monitor electrolytes Cardiology evaluation Diabetes mellitus Accu-Chek before meals and at bedtime Sliding scale insulin/NovoLog ADA carbohydrate consistent diet Hypertensive urgency Continue home antihypertensive medications Closely monitor blood pressure DVT prophylaxis Heparin Advance Directives: Yes VTE prophylaxis?: Chemical Contraindication Mechanical VTE Prophylaxis: Treatment Not Indicated Plan of care discussed with patient/family: Yes <BARRON JUSTIN - Last Filed: 05/07/17 19:34> History of Present Illness Date of admission: 05/07/17 09:28 Medications and Allergies Active Meds: Active Medications Acetaminophen (Tylenol) 650 mg PO Q4H PRN PRN Reason: Pain MILD(1-3)/Fever >100.5/KHAN Albuterol (Proventil) 5 mg IH Q4H PRN PRN Reason: Shortness Of Breath Aspirin (Baby Aspirin) 81 mg PO DAILY [facility] Last Admin: 05/07/17 12:31 Dose: 81 mg Bisacodyl (Dulcolax) 10 mg [place] QDAY PRN PRN Reason: Constipation unrelieved by MOM Citalopram Hydrobromide (Celexa) 40 mg PO DAILY [facility] Last Admin: 05/07/17 13:46 Dose: 40 mg Cyclobenzaprine HCl (Flexeril) 10 mg PO TID PRN PRN Reason: Muscle Spasm Dextrose (D50w (25gm) Syringe) 50 ml IV PRN PRN PRN Reason: Hypoglycemia Enoxaparin Sodium (Lovenox) 40 mg SUB-Q QDAY [facility] Last Admin: 05/07/17 12:30 Dose: 40 mg Levofloxacin/Dextrose (Levaquin 750mg/150ml) 750 mg in 150 mls @ 100 mls/hr IV Q24HR VIC PRN Reason: Protocol Last Admin: 05/07/17 12:31 Dose: 100 mls/hr Insulin Aspart (Novolog) 12 units SUB-Q AC [facility] Last Admin: 05/07/17 18:57 Dose: 12 units Insulin Aspart (Novolog) 0 units SUB-Q ACHS VIC PRN Reason: Protocol Ipratropium [place] (Atrovent) 0.5 mg IH Q6HRT [facility] Last Admin: 05/07/17 13:40 Dose: 0.5 mg Lisinopril (Zestril) 20 mg PO QDAY [facility] Last Admin: 05/07/17 12:30 Dose: 20 mg Lorazepam (Ativan) 2 mg PO BID [facility] Magnesium Hydroxide (Milk Of Magnesia) 30 ml PO Q4H PRN PRN Reason: Constipation Methylprednisolone Sodium Succinate (Solu-Medrol) 80 mg IV Q8HR [facility] Last Admin: 05/07/17 13:47 Dose: 80 mg Morphine Sulfate (Morphine) 2 mg IV Q4H PRN PRN Reason: Pain, Moderate (4-6) Last Admin: 05/07/17 15:04 Dose: 2 mg Pantoprazole Sodium (Protonix) 20 mg PO QDAY VIC Last Admin: 05/07/17 12:31 Dose: 20 mg Exam - Constitutional Vitals: Temp Pulse Resp BP Pulse Ox 97.3 F L 99 H 24 137/63 91 05/07/17 14:52 05/07/17 14:52 05/07/17 14:52 05/07/17 14:52 05/07/17 14:52 Results - Labs CBC & Chem 7: 05/07/17 04:43 05/07/17 04:43 Labs: Laboratory Last Values WBC 8.9 K/mm3 (4.5-11.0) 05/07/17 04:43 RBC 4.55 M/mm3 (3.65-5.03) 05/07/17 04:43 Hgb 13.5 gm/dl (10.1-14.3) 05/07/17 04:43 Hct 39.9 % (30.3-42.9) 05/07/17 04:43 MCV 88 fl (79-97) 05/07/17 04:43 MCH 30 pg (28-32) 05/07/17 04:43 MCHC 34 % (30-34) 05/07/17 04:43 RDW 14.4 % (13.2-15.2) 05/07/17 04:43 Plt Count 253 K/mm3 (140-440) 05/07/17 04:43 Lymph % (Auto) 34.8 % (13.4-35.0) 05/07/17 04:43 Sebastian % (Auto) 6.6 % (0.0-7.3) 05/07/17 04:43 Eos % (Auto) 2.3 % (0.0-4.3) 05/07/17 04:43 Baso % (Auto) 0.9 % (0.0-1.8) 05/07/17 04:43 Lymph # 3.1 K/mm3 (1.2-5.4) 05/07/17 04:43 Sebastian # 0.6 K/mm3 (0.0-0.8) 05/07/17 04:43 Eos # 0.2 K/mm3 (0.0-0.4) 05/07/17 04:43 Baso # 0.1 K/mm3 (0.0-0.1) 05/07/17 04:43 Seg Neutrophils % 55.4 % (40.0-70.0) 05/07/17 04:43 Seg Neutrophils # 4.9 K/mm3 (1.8-7.7) 05/07/17 04:43 Sodium 139 mmol/L (137-145) 05/07/17 04:43 Potassium 4.5 mmol/L (3.6-5.0) 05/07/17 04:43 Chloride 100.0 mmol/L (98-107) 05/07/17 04:43 Carbon Dioxide 24 mmol/L (22-30) 05/07/17 04:43 Anion Gap 20 mmol/L 05/07/17 04:43 BUN 18 mg/dL (7-17) H 05/07/17 04:43 Creatinine 0.8 mg/dL (0.7-1.2) 05/07/17 04:43 Estimated GFR > 60 ml/min 05/07/17 04:43 BUN/Creatinine Ratio 23 % 05/07/17 04:43 Glucose 230 mg/dL (65-100) H 05/07/17 04:43 POC Glucose 339 (70-105) H 05/07/17 16:14 Calcium 9.5 mg/dL (8.4-10.2) 05/07/17 04:43 Troponin T < 0.010 ng/mL (0.00-0.029) 05/07/17 04:43 NT-Pro-B Natriuret Pep 139.0 pg/mL (0-900) 05/07/17 04:43
[2017-05-07] MEDS ORDERED: NON-FORMULARY (Citalopram Hydrobromide [Celexa] 40 MG) PO SCH (10:00)
[2017-05-07] MEDS ORDERED: NON-FORMULARY (Omeprazole Magnesium [Prilosec Otc] 20 MG) PO SCH (10:00)
[2017-05-07] MEDS ORDERED: INSULIN ASPART 12 UNIT SQ SCH (11:30)
[2017-05-07] MEDS: ZESTRIL PO SCH (12:30)
[2017-05-07] MEDS: LOVENOX SUB-Q SCH (12:30)
[2017-05-07] MEDS: BABY ASPIRIN PO SCH (12:31)
[2017-05-07] MEDS: LEVAQUIN 750MG/150ML 750 MG/150 ML BAG IV SCH (12:31)
[2017-05-07] MEDS: PROTONIX PO SCH (12:31)
[2017-05-07] MEDS: ATROVENT IH SCH ×2 (13:40→19:56)
[2017-05-07] MEDS: celeXA PO SCH (13:46)
[2017-05-07] MEDS: NOVOLOG SUB-Q SCH ×3 (13:47→23:39)
[2017-05-07] MEDS ORDERED: D50W (25GM) Syringe IV PRN (14:56)
[2017-05-07] MEDS: MORPHINE IV PRN ×2 (15:04→19:58)
[2017-05-07] MEDS: ATIVAN PO SCH (21:36)
[2017-05-08] MEDS: PROVENTIL IH PRN ×2 (00:39→17:37)
[2017-05-08] MEDS: MORPHINE IV PRN ×4 (01:05→14:20)
[2017-05-08] MEDS: ATIVAN PO SCH ×2 (01:58→09:59)
[2017-05-08] MEDS: ATROVENT IH SCH ×3 (02:44→13:45)
[2017-05-08 05:45] LABS: Basophils % (Auto) 0.3 % (0.0-1.8); Hematocrit 38.5 % (30.3-42.9); Hemoglobin 12.8 gm/dl (10.1-14.3); Mean Corpuscular HGB Conc 33 % (30-34); Mean Corpuscular Hemoglobin 29 pg (28-32); Mean Corpuscular Volume 87 fl (79-97); Platelet Count 254 K/mm3 (140-440); Red Blood Count 4.41 M/mm3 (3.65-5.03); Red Cell Distribution Width 14.7 % (13.2-15.2); White Blood Count 11.6 K/mm3 (4.5-11.0)
[2017-05-08 06:07] LABS: BUN/Creatinine Ratio 26; Blood Urea Nitrogen 18 mg/dL (7-17); Calcium 9.7 mg/dL (8.4-10.2); Carbon Dioxide 25 mmol/L (22-30); Chloride 98.4 mmol/L (98-107); Glucose 322 mg/dL (65-100); Sodium 136 mmol/L (137-145)
[2017-05-08 08:08] LABS: Anion Gap 18 mmol/L; Potassium 5.3 mmol/L (3.6-5.0)
[2017-05-08] MEDS: NOVOLOG SUB-Q SCH ×6 (08:39→16:21)
[2017-05-08] MEDS: LOVENOX SUB-Q SCH (09:58)
[2017-05-08] MEDS: celeXA PO SCH (09:58)
[2017-05-08] MEDS: ZESTRIL PO SCH (09:58)
[2017-05-08] MEDS: LEVAQUIN 750MG/150ML 750 MG/150 ML BAG IV SCH (09:59)
[2017-05-08] MEDS: PROTONIX PO SCH (09:59)
[2017-05-08] MEDS: BABY ASPIRIN PO SCH (09:59)
[2017-05-08] MEDS ORDERED: KIONEX PO ONE (10:00)
--- NOTE | 2017-05-08 10:26 | Discharge Summary ---
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 She was treated with supplemental oxygen, aggressive nebulizer therapy, insulin, IV steroids and antibiotics. She is being discharged on oral antibiotic and insulin. Also D/C with oral steroid taper upon discharge. Patient clinically improved and stable for discharge. Patient was advised to follow up with her primary care. Discharge Diagnosed Acute respiratory failure with hypoxia Acute COPD exacerbation Diabetes mellitus Hypertensive urgency Chronic diastolic Congestive heart failure Disposition: TO HOME OR SELFCARE Time spent for discharge: 35 minutes Core Measure Documentation - Palliative Care Palliative Care/ Comfort Measures: Not Applicable - Core Measures Any of the following diagnoses?: none Exam - Constitutional Vitals: Temp Pulse Resp BP Pulse Ox 98.1 F 73 22 134/72 92 05/08/17 08:12 05/08/17 08:12 05/08/17 08:12 05/08/17 09:58 05/08/17 08:12 General appearance: Present: no acute distress - EENT Eyes: Present: PERRL ENT: hearing intact - Neck Neck: Present: supple - Respiratory Respiratory effort: normal Respiratory: bilateral: wheezing (mild clinically optimized) - Cardiovascular Rhythm: regular Heart Sounds: Present: S1 & S2 - Abdominal General gastrointestinal: Present: soft, non-tender Female genitourinary: Present: deferred - Rectal Rectal Exam: deferred - Integumentary Integumentary: Present: clear, warm, dry - Musculoskeletal Musculoskeletal: strength equal bilaterally - Psychiatric Psychiatric: appropriate mood/affect - Neurologic Neurologic: CNII-XII intact - Allied Health Allied health notes reviewed: nursing Plan Diet: low fat, low cholesterol, low salt Follow up with: GLORY BOUDREAUX MD [Primary Care Provider] - 3-5 Days Prescriptions: Insulin NPH/Regular [NovoLIN 70/30] 8 unit SUB-Q BIDDIAB 30 Days units Levofloxacin [Levaquin] 750 mg PO QDAY 5 Days tablet Prednisone [predniSONE 10 mg (6-Day Pack, 21 Tabs)] 10 mg PO .TAPER #1 tab.ds.pk <BARRON JUSTIN - Last Filed: 05/08/17 16:38> Providers - Providers Date of Admission: 05/07/17 09:28 Attending physician: BARRON JUSTIN Primary care physician: GLORY BOUDREAUX Hospitalization Hospital course: I saw and evaluated the patient. I agree with the findings and the plan of care as documented in the Nurse Practitioner's~note, with the following corrections and additions. Morbid obesity; BMI 52.4 Counseling done, advised diet modification, exercise as tolerated and weight reduction and medically stable Patient may also benefit by bariatric surgical consultation for weight reduction program upon discharge Plan of care discussed with the patient, verbalize understanding Exam - Constitutional Vitals: Temp Pulse Resp BP Pulse Ox 98.0 F 98 H 20 132/71 88 05/08/17 11:47 05/08/17 13:50 05/08/17 13:50 05/08/17 11:47 05/08/17 11:47
[2017-05-08 20:10] VITALS: BP 140/67
[2017-05-09] MEDS: ATROVENT IH SCH (08:41)
[2017-05-09] MEDS ORDERED: LEVAQUIN PO SCH (10:00)
== END 2017-05-08 20:19 | disposition home health service (06) | DRG 189 ==
LOC: ED 03:41 → 3A 09:28
PROVIDERS: ADMIT Internal Medicine; ATTEND Internal Medicine
DX: J96.01 Acute respiratory failure with hypoxia (principal); J44.1 Chronic obstructive pulmonary disease with (acute) exacerbation; I50.32 Chronic diastolic (congestive) heart failure; Z68.43 Body mass index [BMI] 50.0-59.9, adult; E66.01 Morbid (severe) obesity due to excess calories; I16.0 Hypertensive urgency; E11.9 Type 2 diabetes mellitus without complications; I11.0 Hypertensive heart disease with heart failure; F31.9 Bipolar disorder, unspecified; F17.210 Nicotine dependence, cigarettes, uncomplicated; Z90.710 Acquired absence of both cervix and uterus; Z79.4 Long term (current) use of insulin; Z88.6 Allergy status to analgesic agent; Z88.0 Allergy status to penicillin; Z88.8 Allergy status to other drugs, medicaments and biological substances; Z71.3 Dietary counseling and surveillance
CPT/HCPCS: 36415; 71010; 71020; 80048; 82962; 83880; 84484; 85025; 93005; 93010; 94640; 94644; 94760; 96374; 96375; 99406; J1650; J1815; J1956; J2060; J2270; J2920; J2930

== ENCOUNTER 2017-12-22 12:22 | Emergency (ER) | payer MEDICARE ==
[2017-12-22 12:34] VITALS: BP 134/74
[2017-12-22] MEDS ORDERED: ATROVENT IH ONE (13:25)
[2017-12-22] MEDS ORDERED: PROVENTIL IH ONE (13:25)
[2017-12-22] MEDS ORDERED: DELTASONE PO ONE (13:26)
--- NOTE | 2017-12-22 13:27 | Emergency Department Report ---
ED General Adult HPI - General Chief complaint: Psych Stated complaint: ANN/ ANXIETY Time Seen by Provider: 12/22/17 12:56 Source: patient, EMS (ems notes not available at time of chart dictation), RN notes reviewed Mode of arrival: Ambulatory Limitations: No Limitations, Other - History of Present Illness Initial comments: Primary care Dr.: Dr. Kelly Pulmonology: Dr. Corbin Past medical history: COPD, oxygen dependence, diabetes, hypertension, bipolar, anxiety, chronic pain, spinal fusion, benzodiazepine dependence. This is a 52-year-old female whom I have evaluated in the past. Because of insurance issues and logistical reasons, her outpatient pain clinic and psychiatry clinic recently changed. She reports running out of her Ativan prescription 1 week ago. She reports feeling anxious. She is not homicidal or suicidal. She denies headache, neck pain, chest pain, abdominal pain, urinary symptoms. She reports that she has no way to get to her psychiatric outpatient appointments. She also endorses cough, wheezing, mucus production, shortness of breath -: Gradual Consistency: intermittent Improves with: medication, rest Worsens with: movement Associated Symptoms: cough, malaise, shortness of breath. denies: confusion, chest pain, diaphoresis, fever/chills, headaches, loss of appetite, nausea/ vomiting, rash, seizure, syncope, weakness - Related Data Home Medications Medication Instructions Recorded Confirmed Last Taken Escitalopram Oxalate [Lexapro] 20 mg PO DAILY 11/05/17 11/05/17 Unknown Insulin Aspart [NovoLOG Flexpen] 15 units SQ AC 11/05/17 11/05/17 Unknown Lisinopril [Zestril] 20 mg PO DAILY 11/05/17 11/05/17 Unknown traZODone [Desyrel] 100 mg PO QPM 11/05/17 11/05/17 Unknown LORazepam [Ativan] 1 mg PO BID MDD 1 mg 11/06/17 11/06/17 11/05/17 1 mg Previous Rx's Medication Instructions Recorded Last Taken Type ALBUTEROL NEB's [Proventil 0.083% 5 mg IH Q4H PRN nebu 05/08/17 Unknown Rx NEBS] Famotidine [Pepcid] 20 mg PO BID #20 tablet 11/09/17 Unknown Rx Insulin NPH/Regular [NovoLIN 70/30] 24 unit SUB-Q BIDDIAB 10 Days 11/09/17 Unknown Rx units Levofloxacin [Levaquin] 750 mg PO QDAY #3 tablet 11/09/17 Unknown Rx guaiFENesin DM [Guaifenesin Dm 10 ml PO TID PRN 10 Days oral.liqd 11/09/17 Unknown Rx Syrup] predniSONE [Deltasone] 10 mg PO .TAPER #40 tablet 11/09/17 Unknown Rx Albuterol Sulfate [Proair 90 mcg IH Q4HR PRN #2 aer.pow.ba 12/22/17 Unknown Rx Respiclick] Ipratropium [place] [Atrovent Hfa] 12.9 gm IH Q4HR #2 hfa.aer.ad 12/22/17 Unknown Rx LORazepam [Ativan] 0.5 mg PO BID #14 tab 12/22/17 Unknown Rx predniSONE [Deltasone] 40 mg PO QDAY #8 tab 12/22/17 Unknown Rx Allergies Allergy/AdvReac Type Severity Reaction Status Date / Time oxycodone HCl [From Percocet] Allergy Angioedema Verified 07/10/16 17:11 Penicillins Allergy Angioedema Verified 07/10/16 17:11 prednisone Allergy Unknown Verified 07/10/16 17:11 bupropion HCl AdvReac Unknown Verified 07/10/16 17:11 [From Wellbutrin] divalproex sodium AdvReac Unknown Verified 07/10/16 17:11 [From Depakote] fluoxetine HCl [From Prozac] AdvReac Unknown Verified 07/10/16 17:11 lithium AdvReac Unknown Verified 07/10/16 17:11 ED Review of Systems ROS: Stated complaint: ANN/ ANXIETY Other details as noted in HPI Constitutional: denies: fever Eyes: denies: eye discharge ENT: congestion. denies: epistaxis Respiratory: cough, shortness of breath, wheezing Cardiovascular: denies: syncope Gastrointestinal: denies: abdominal pain Genitourinary: denies: dysuria Musculoskeletal: arthralgia Skin: denies: lesions Psychiatric: anxiety. denies: homicidal thoughts, suicidal thoughts ED Past Medical Hx - Past Medical History Previous Medical History?: Yes Hx Hypertension: Yes Hx CVA: No Hx Heart Attack/AMI: No Hx Congestive Heart Failure: Yes Hx Diabetes: Yes Hx Deep Vein Thrombosis: No Hx Pulmonary Embolism: No Hx GERD: No Hx Liver Disease: No Hx Renal Disease: No Hx Sickle Cell Disease: No Hx Arthritis: Yes Hx Seizures: No Hx Kidney Stones: No Hx Psychiatric Treatment: Yes (Bipolar, Schziophrenia) Hx Asthma: Yes Hx COPD: Yes Hx Tuberculosis: No Hx HIV: No - Surgical History Past Surgical History?: Yes Hx Coronary Stent: No Hx Open Heart Surgery: No Hx Pacemaker: No Hx Internal Defibrillator: No Hx Cholecystectomy: No Hx Appendectomy: No Hx Breast Surgery: No Additional Surgical History: spinal fusion, left hip - Social History Smoking Status: Current Every Day Smoker Substance Use Type: None - Medications Home Medications: Home Medications Medication Instructions Recorded Confirmed Last Taken Type ALBUTEROL NEB's [Proventil 0.083% 5 mg IH Q4H PRN nebu 05/08/17 11/05/17 Unknown Rx NEBS] Escitalopram Oxalate [Lexapro] 20 mg PO DAILY 11/05/17 11/05/17 Unknown History Insulin Aspart [NovoLOG Flexpen] 15 units SQ AC 11/05/17 11/05/17 Unknown History Lisinopril [Zestril] 20 mg PO DAILY 11/05/17 11/05/17 Unknown History traZODone [Desyrel] 100 mg PO QPM 11/05/17 11/05/17 Unknown History LORazepam [Ativan] 1 mg PO BID MDD 1 mg 11/06/17 11/06/17 11/05/17 History 1 mg Famotidine [Pepcid] 20 mg PO BID #20 tablet 11/09/17 Unknown Rx Insulin NPH/Regular [NovoLIN 70/30] 24 unit SUB-Q BIDDIAB 10 Days 11/09/17 Unknown Rx units Levofloxacin [Levaquin] 750 mg PO QDAY #3 tablet 11/09/17 Unknown Rx guaiFENesin DM [Guaifenesin Dm 10 ml PO TID PRN 10 Days oral.liqd 11/09/17 Unknown Rx Syrup] predniSONE [Deltasone] 10 mg PO .TAPER #40 tablet 11/09/17 Unknown Rx Albuterol Sulfate [Proair 90 mcg IH Q4HR PRN #2 aer.pow.ba 12/22/17 Unknown Rx Respiclick] Ipratropium [place] [Atrovent Hfa] 12.9 gm IH Q4HR #2 hfa.aer.ad 12/22/17 Unknown Rx LORazepam [Ativan] 0.5 mg PO BID #14 tab 12/22/17 Unknown Rx predniSONE [Deltasone] 40 mg PO QDAY #8 tab 12/22/17 Unknown Rx ED Physical Exam - General Limitations: No Limitations General appearance: alert, in no apparent distress - Head Head exam: Present: atraumatic, normocephalic - Eye Eye exam: Present: normal appearance, EOMI - ENT ENT exam: Present: normal exam, normal orophraynx, mucous membranes moist, normal external ear exam - Neck Neck exam: Present: normal inspection, full ROM - Respiratory Respiratory exam: Present: wheezes, rhonchi - Cardiovascular Cardiovascular Exam: Present: regular rate, normal rhythm, normal heart sounds. Absent: bradycardia, tachycardia, irregular rhythm, systolic murmur, diastolic murmur, rubs, gallop - GI/Abdominal GI/Abdominal exam: Present: soft, normal bowel sounds. Absent: distended, tenderness, guarding, rebound, rigid, pulsatile mass - Extremities Exam Extremities exam: Present: normal inspection, full ROM, normal capillary refill , other (2+ pulses noted in the bilateral upper, lower extremities. Compartments soft. No long bony tenderness. The pelvis is stable.). Absent: joint swelling, calf tenderness - Back Exam Back exam: Present: normal inspection, full ROM. Absent: tenderness, CVA tenderness (R), paraspinal tenderness, vertebral tenderness - Neurological Exam Neurological exam: Present: alert, oriented X3, CN II-XII intact, normal gait, other (Extraocular movements intact. Tongue midline. No facial droop. Facial sensation intact to light touch in the V1, V2, V3 distribution bilaterally. 5 and 5 strength in 4 extremities.. Sensation is intact to light touch in 4 extremities.). Absent: motor sensory deficit - Psychiatric Psychiatric exam: Present: anxious. Absent: homicidal ideation, suicidal ideation - Skin Skin exam: Present: warm, dry, intact, normal color. Absent: rash ED Course Vital Signs 12/22/17 12:33 Temperature 98.1 F Pulse Rate 78 Respiratory 18 Rate Blood Pressure 134/74 [Right] O2 Sat by Pulse 94 Oximetry ED Medical Decision Making - Lab Data Vital Signs 12/22/17 12:33 Temperature 98.1 F Pulse Rate 78 Respiratory 18 Rate Blood Pressure 134/74 [Right] O2 Sat by Pulse 94 Oximetry - Radiology Data Radiology results: report reviewed, image reviewed X-ray of the chest, interpreted by me, no acute disease - Medical Decision Making Differential diagnosis, including when not limited to: Benzodiazepine dependence , COPD Assessment and plan: 52-year-old female who primarily comes from benzodiazepine refill. She has a secondary diagnosis and complaint of what appears to be a mild COPD flareup. She is currently sleeping on her stretcher and in no distress. She does not require 1013 at this time. The case management team was consulted and involved to facilitate and help the patient with her outpatient transportation issues. I told the patient I would give her a one- week prescription of Xanax to avoid seizure secondary to benzodiazepine withdrawal. However, the patient understands that she needs to follow up with an outpatient primary care doctor or psychiatrist to receive additional prescriptions. Her x-ray of the chest was unremarkable. She is suitable for discharge at this point in time. Critical care attestation.: If time is entered above; I have spent that time in minutes in the direct care of this critically ill patient, excluding procedure time. ED Disposition Clinical Impression: COPD exacerbation, Benzodiazepine dependence Disposition: DC-01 TO HOME OR SELFCARE Is pt being admited?: No Does the pt Need Aspirin: No Condition: Stable Instructions: Chronic Bronchitis (ED) Additional Instructions: Take medications as directed. Follow up with an outpatient primary care doctor or psychiatrist within the next week. Please note that the patient was given a one time one week refill on Ativan to prevent benzodiazepine withdrawal seizure. Patient does not require a full 1 mg twice daily to prevent seizure. 0.5 mg is an adequate dose. Therefore, the patient will need to follow up with her outpatient primary care doctor or psychiatrist for further evaluation and management. Take the albuterol, Atrovent, steroids as directed. Return to the ER right away with new pain, worsening pain, migration of pain, fevers, chills, lethargy, irritability, projectile vomiting, change in mental status, confusion , inability to tolerate liquid feeds. Referrals: PRIMARY CARE, [Primary Care Provider] - 3-5 Days CAROLE ESTRADA MD [Staff Physician] - 3-5 Days YAHIR KELLY DO [Referring] - 3-5 Days
--- NOTE | 2017-12-22 14:33 | XRay Report ---
ROUTINE CHEST, TWO VIEWS: HISTORY: Dyspnea. The trachea, heart, mediastinal contour, lung kramer and bony thorax are unremarkable. IMPRESSION: Unremarkable chest x-ray.
== END 2017-12-22 16:58 | disposition home or self-care (01) ==
LOC: ED 12:22
DX: J45.901 Unspecified asthma with (acute) exacerbation (principal); F13.251 Sedative, hypnotic or anxiolytic dependence with sedative, hypnotic or anxiolytic-induced psychotic disorder with hallucinations; E11.9 Type 2 diabetes mellitus without complications; F31.9 Bipolar disorder, unspecified; F41.9 Anxiety disorder, unspecified; I11.0 Hypertensive heart disease with heart failure; M19.90 Unspecified osteoarthritis, unspecified site; F20.9 Schizophrenia, unspecified; F17.200 Nicotine dependence, unspecified, uncomplicated; Z79.4 Long term (current) use of insulin; Z88.0 Allergy status to penicillin; Z88.8 Allergy status to other drugs, medicaments and biological substances
CPT/HCPCS: 71046; 93005; 93010; 94640; J7512

== ENCOUNTER 2018-01-04 19:05 | Inpatient (IN) | payer MEDICARE ==
[2018-01-04] MEDS ORDERED: ASPIRIN PO ONE (19:58)
--- NOTE | 2018-01-04 21:13 | XRay Report ---
FINAL REPORT EXAM: XR CHEST ROUTINE 2V HISTORY: Shortness of breath TECHNIQUE: PA and lateral views of the chest PRIORS: CXR 11/05/2017, 05/07/2017 FINDINGS: Lines, tubes, and devices: N/A Lungs and pleura: Trachea is normal in position. Lungs are clear of infiltrate, pleural effusion, vascular congestion, or pneumothorax. No change. Cardiomediastinal silhouette: Cardiac and mediastinal silhouettes are unremarkable. Other: Bony structures are intact. IMPRESSION: No acute cardiopulmonary process seen. No change.
[2018-01-04 21:23] LABS: Basophils # (Auto) 0.1 K/mm3 (0.0-0.1); Basophils % (Auto) 0.6 % (0.0-1.8); Eosinophils # (Auto) 0.3 K/mm3 (0.0-0.4); Eosinophils % (Auto) 2.7 % (0.0-4.3); Hematocrit 43.8 % (30.3-42.9); Hemoglobin 14.1 gm/dl (10.1-14.3); Lymphocytes # (Auto) 2.2 K/mm3 (1.2-5.4); Lymphocytes % (Auto) 21.9 % (13.4-35.0); Mean Corpuscular HGB Conc 32 % (30-34); Mean Corpuscular Hemoglobin 29 pg (28-32); Mean Corpuscular Volume 91 fl (79-97); Monocytes # (Auto) 0.5 K/mm3 (0.0-0.8); Monocytes % (Auto) 4.9 % (0.0-7.3); Platelet Count 272 K/mm3 (140-440); Red Cell Distribution Width 14.3 % (13.2-15.2)
[2018-01-04 21:32] LABS: INR 0.82 (0.87-1.13)
[2018-01-04 22:34] LABS: BUN/Creatinine Ratio 16; Blood Urea Nitrogen 13 mg/dL (7-17); Calcium 10.2 mg/dL (8.4-10.2); Hemolysis Index 10
[2018-01-04] MEDS ORDERED: DUONEB *Not for PRN Use IH ONE (22:39)
[2018-01-05] MEDS ORDERED: DUONEB *Not for PRN Use IH ONE ×2 (02:27→02:42)
[2018-01-05] MEDS ORDERED: SOLU-Medrol IV ONE (04:06)
[2018-01-05] MEDS ORDERED: LEVAQUIN 750MG/150ML 750 MG/150 ML BAG IV ONE (04:06)
[2018-01-05] MEDS ORDERED: PROVENTIL IH ONE (04:07)
[2018-01-05] MEDS ORDERED: ATROVENT IH ONE (04:07)
--- NOTE | 2018-01-05 04:14 | Emergency Department Report ---
ED Shortness of Breath HPI - General Chief Complaint: Dizziness Stated Complaint: ANN Time Seen by Provider: 01/05/18 04:01 Source: patient Mode of arrival: Wheelchair Limitations: Physical Limitation - History of Present Illness Initial Comments: Patient is 52 years old female with a history of COPD, hypertension and diabetes. Patient presented to the ER via EMS complaining of shortness of breaths and cough productive of yellowish sputum for the last 3 days. Patient stated that she been taking her albuterol. Treatment that is not helping. Patient is on oxygen 3 L/m. Patient denied any fever, nausea or vomiting. No chest pain. MD Complaint: shortness of breath, cough -: days(s) Consistency: constant Improves With: oxygen, bronchodilators Known History Of: COPD Context: recent URI - Related Data Home Medications Medication Instructions Recorded Confirmed Last Taken Escitalopram Oxalate [Lexapro] 20 mg PO DAILY 11/05/17 11/05/17 Unknown Insulin Aspart [NovoLOG Flexpen] 15 units SQ AC 11/05/17 11/05/17 Unknown Lisinopril [Zestril] 20 mg PO DAILY 11/05/17 11/05/17 Unknown traZODone [Desyrel] 100 mg PO QPM 11/05/17 11/05/17 Unknown LORazepam [Ativan] 1 mg PO BID MDD 1 mg 11/06/17 11/06/17 11/05/17 1 mg Previous Rx's Medication Instructions Recorded Last Taken Type ALBUTEROL NEB's [Proventil 0.083% 5 mg IH Q4H PRN nebu 05/08/17 Unknown Rx NEBS] Famotidine [Pepcid] 20 mg PO BID #20 tablet 11/09/17 Unknown Rx Insulin NPH/Regular [NovoLIN 70/30] 24 unit SUB-Q BIDDIAB 10 Days 11/09/17 Unknown Rx units Levofloxacin [Levaquin] 750 mg PO QDAY #3 tablet 11/09/17 Unknown Rx guaiFENesin DM [Guaifenesin Dm 10 ml PO TID PRN 10 Days oral.liqd 11/09/17 Unknown Rx Syrup] predniSONE [Deltasone] 10 mg PO .TAPER #40 tablet 11/09/17 Unknown Rx Albuterol Sulfate [Proair 90 mcg IH Q4HR PRN #2 aer.pow.ba 12/22/17 Unknown Rx Respiclick] Ipratropium [place] [Atrovent Hfa] 12.9 gm IH Q4HR #2 hfa.aer.ad 12/22/17 Unknown Rx LORazepam [Ativan] 0.5 mg PO BID #14 tab 12/22/17 Unknown Rx predniSONE [Deltasone] 40 mg PO QDAY #8 tab 12/22/17 Unknown Rx Allergies Allergy/AdvReac Type Severity Reaction Status Date / Time oxycodone HCl [From Percocet] Allergy Angioedema Verified 07/10/16 17:11 Penicillins Allergy Angioedema Verified 07/10/16 17:11 prednisone Allergy Unknown Verified 07/10/16 17:11 bupropion HCl AdvReac Unknown Verified 07/10/16 17:11 [From Wellbutrin] divalproex sodium AdvReac Unknown Verified 07/10/16 17:11 [From Depakote] fluoxetine HCl [From Prozac] AdvReac Unknown Verified 07/10/16 17:11 lithium AdvReac Unknown Verified 07/10/16 17:11 ED Review of Systems ROS: Stated complaint: ANN Other details as noted in HPI Comment: All other systems reviewed and negative Constitutional: denies: chills, fever Respiratory: cough, shortness of breath, SOB with exertion, wheezing Cardiovascular: dyspnea on exertion. denies: chest pain, palpitations Gastrointestinal: denies: abdominal pain, nausea, vomiting, diarrhea, constipation, hematemesis, melena, hematochezia Neurological: denies: headache, weakness, numbness, paresthesias, confusion, abnormal gait ED Past Medical Hx - Past Medical History Previous Medical History?: Yes Hx Hypertension: Yes Hx CVA: No Hx Heart Attack/AMI: No Hx Congestive Heart Failure: Yes Hx Diabetes: Yes Hx Deep Vein Thrombosis: No Hx Pulmonary Embolism: No Hx GERD: No Hx Liver Disease: No Hx Renal Disease: No Hx Sickle Cell Disease: No Hx Arthritis: Yes Hx Seizures: No Hx Kidney Stones: No Hx Psychiatric Treatment: Yes (Bipolar, Schziophrenia) Hx Asthma: Yes Hx COPD: Yes Hx Tuberculosis: No Hx HIV: No Additional medical history: Bronchitis, Home O2 2 liters - Surgical History Hx Coronary Stent: No Hx Open Heart Surgery: No Hx Pacemaker: No Hx Internal Defibrillator: No Hx Cholecystectomy: No Hx Appendectomy: No Hx Breast Surgery: No Additional Surgical History: spinal fusion, left hip - Social History Smoking Status: Current Some Day Smoker - Medications Home Medications: Home Medications Medication Instructions Recorded Confirmed Last Taken Type ALBUTEROL NEB's [Proventil 0.083% 5 mg IH Q4H PRN nebu 05/08/17 11/05/17 Unknown Rx NEBS] Escitalopram Oxalate [Lexapro] 20 mg PO DAILY 11/05/17 11/05/17 Unknown History Insulin Aspart [NovoLOG Flexpen] 15 units SQ AC 11/05/17 11/05/17 Unknown History Lisinopril [Zestril] 20 mg PO DAILY 11/05/17 11/05/17 Unknown History traZODone [Desyrel] 100 mg PO QPM 11/05/17 11/05/17 Unknown History LORazepam [Ativan] 1 mg PO BID MDD 1 mg 11/06/17 11/06/17 11/05/17 History 1 mg Famotidine [Pepcid] 20 mg PO BID #20 tablet 11/09/17 Unknown Rx Insulin NPH/Regular [NovoLIN 70/30] 24 unit SUB-Q BIDDIAB 10 Days 11/09/17 Unknown Rx units Levofloxacin [Levaquin] 750 mg PO QDAY #3 tablet 11/09/17 Unknown Rx guaiFENesin DM [Guaifenesin Dm 10 ml PO TID PRN 10 Days oral.liqd 11/09/17 Unknown Rx Syrup] predniSONE [Deltasone] 10 mg PO .TAPER #40 tablet 11/09/17 Unknown Rx Albuterol Sulfate [Proair 90 mcg IH Q4HR PRN #2 aer.pow.ba 12/22/17 Unknown Rx Respiclick] Ipratropium [place] [Atrovent Hfa] 12.9 gm IH Q4HR #2 hfa.aer.ad 12/22/17 Unknown Rx LORazepam [Ativan] 0.5 mg PO BID #14 tab 12/22/17 Unknown Rx predniSONE [Deltasone] 40 mg PO QDAY #8 tab 12/22/17 Unknown Rx ED Physical Exam - General Limitations: Physical Limitation General appearance: alert, in distress (moderate respiratory distress) - Head Head exam: Present: atraumatic, normocephalic, normal inspection - Eye Eye exam: Present: normal appearance - ENT ENT exam: Present: normal exam, normal orophraynx, mucous membranes moist - Neck Neck exam: Present: normal inspection, full ROM. Absent: tenderness, meningismus - Respiratory Respiratory exam: Present: wheezes, rhonchi, accessory muscle use, decreased breath sounds, prolonged expiratory. Absent: rales, stridor - Cardiovascular Cardiovascular Exam: Present: regular rate, normal rhythm, normal heart sounds - GI/Abdominal GI/Abdominal exam: Present: soft, normal bowel sounds. Absent: distended, tenderness, guarding, rebound, rigid, organomegaly, mass, bruit, pulsatile mass , hernia - Extremities Exam Extremities exam: Present: normal inspection, full ROM, normal capillary refill - Back Exam Back exam: Present: normal inspection, full ROM. Absent: CVA tenderness (L), muscle spasm, paraspinal tenderness, vertebral tenderness - Neurological Exam Neurological exam: Present: alert, oriented X3, CN II-XII intact, normal gait, reflexes normal - Skin Skin exam: Present: warm, intact ED Course Vital Signs 01/04/18 01/04/18 19:12 19:52 Temperature 98.3 F 98.3 F Pulse Rate 84 80 Respiratory 18 18 Rate Blood Pressure 146/83 146/83 O2 Sat by Pulse 94 94 Oximetry ED Medical Decision Making - Lab Data Result diagrams: 01/04/18 20:48 01/04/18 20:48 - EKG Data -: EKG Interpreted by Mi EKG shows normal: sinus rhythm Rate: normal - EKG Data Interpretation: no acute changes - Radiology Data Radiology results: report reviewed Referring Physician: FALLON SOTELO Patient Name: ERIC WELSH Date of : 1965 Sex: Female Report Date: 2018-01-04 Report Status: Finalized Findings [facility] [address] [place] [address] XRay Report Signed Patient: ERIC WELSH MR#: [id number] : 1965 Acct:[id number] Age/Sex: 52 / F ADM Date: 01/04/18 Loc: ED Attending Dr: Ordering Physician: FALLON SOTELO MD Date of Service: 01/04/18 Procedure(s): XR chest routine 2V Accession Number(s): [id number] cc: ED MD ASHLEIGH Fluoro Time In Minutes: FINAL REPORT EXAM: XR CHEST ROUTINE 2V HISTORY: Shortness of breath TECHNIQUE: PA and lateral views of the chest PRIORS: CXR 11/05/2017, 05/07/2017 FINDINGS: Lines, tubes, and devices: N/A Lungs and pleura: Trachea is normal in position. Lungs are clear of infiltrate, pleural effusion, vascular congestion, or pneumothorax. No change. Cardiomediastinal silhouette: Cardiac and mediastinal silhouettes are unremarkable. Other: Bony structures are intact. IMPRESSION: No acute cardiopulmonary process seen. No change. Transcribed By: [facility] Dictated By: VICKI CHEN MD Electronically Authenticated By: VICKI CHEN MD Signed Date/Time: 01/04/182104 DD/ 04 TD/TT: 01/04/182104 - Medical Decision Making I discussed the patient is Dr. Armas, he agreed to admit the patient to medical service. Critical care attestation.: If time is entered above; I have spent that time in minutes in the direct care of this critically ill patient, excluding procedure time. ED Disposition Clinical Impression: COPD exacerbation Disposition: - OP ADMIT IP TO THIS HOSP Is pt being admited?: Yes Condition: Stable Instructions: Chronic Bronchitis (ED) Referrals: PRIYANK GARCIA MD [Primary Care Provider] - 3-5 Days
[2018-01-05] MEDS ORDERED: D50W (25GM) Syringe IV PRN (04:35)
[2018-01-05] MEDS ORDERED: ATIVAN PO ONE (05:03)
--- NOTE | 2018-01-05 05:47 | History and Physical Report ---
CHIEF COMPLAINT: Shortness of breath. HISTORY OF PRESENT ILLNESS: The patient is a 52-year-old female with past history of COPD, presenting with shortness of breath associated with cough, productive of yellow sputum, going on for about 3 days. There is no history of associated fever and no history of nausea or vomiting and also no history of chest pain. The patient presented for evaluation stating that she has been taking her breathing treatment without much help. PAST MEDICAL HISTORY: Pertinent for hypertension, congestive heart failure, arthritis, bipolar disorder, schizophrenia, asthma, COPD on O2 dependent, bronchitis. PAST SURGICAL HISTORY: Pertinent for spinal fusion surgery and left hip surgery. FAMILY HISTORY: Noncontributory. SOCIAL HISTORY: The patient smokes cigarettes, does not drink alcohol and does not use illicit drugs. MEDICATIONS: The patient is on albuterol nebulizer 5 mg inhalation every 4 hours as needed for shortness of breath, Lexapro 20 mg by mouth daily, insulin aspart 50 units subcutaneous before meals, lisinopril 20 mg by mouth daily, trazodone 100 mg by mouth in the evening, lorazepam 1 mg by mouth twice daily, Pepcid 20 mg by mouth twice daily, Novolin 70/30, 24 units subcutaneous b.i.d., Levaquin 750 mg daily, guaifenesin Robitussin 10 mL by mouth 3 times daily as needed for cough, prednisone 10 mg by mouth daily with tapering instructions, the patient is also on ProAir 90 mcg inhalation every 4 hours as needed for shortness of breath and Atrovent 12.9 grams inhalation every 4 hours. The patient is also on Ativan 0.5 mg by mouth twice daily and prednisone 40 mg daily. ALLERGIES: THE PATIENT IS ALLERGIC TO OXYCODONE, BUPROPION HYDROCHLORIDE AND PREDNISONE. REVIEW OF SYSTEMS: CONSTITUTIONAL: There is no fever, no chills, no diaphoresis. HEENT: There is no headache or sore throat. CARDIOVASCULAR: There is no chest pain or orthopnea. RESPIRATORY: Shortness of breath is present. Cough present. GASTROINTESTINAL: There is no nausea, no vomiting, no abdominal pain, diarrhea or constipation. NEUROLOGICAL: There is no numbness, no dizziness, no altered mental status. MUSCULOSKELETAL SYSTEM: There is no joint pain or swelling. DERMATOLOGICAL: There is no skin rash or itching. GENITOURINARY: There is no dysuria, hematuria or flank pain. Rest of system review is normal. PHYSICAL EXAMINATION: GENERAL: At the time of exam, the patient was found to be alert, oriented x 3 and in mild distress due to shortness of breath. VITAL SIGNS: Vital signs at the time of presentation shows temperature of 98.3 degrees Fahrenheit, pulse of 84, respirations 18, blood pressure 146/83, O2 sat of 94% on oxygen. HEENT: Showed pupils to be equal, round, reactive to light and accommodating. Extraocular muscles are intact. NECK: Supple with no JVD or carotid bruit. CARDIOVASCULAR: Showed normal first and second heart sounds with no gallops or murmurs. RESPIRATORY: Showed reduced air entry on both sides of the lungs with expiratory wheezing. GASTROINTESTINAL: Show abdomen to be full, soft, nontender with no organomegaly or rigidity. NEUROLOGICAL: Shows no focal deficit. MUSCULOSKELETAL: Show no joint swelling or tenderness. DERMATOLOGICAL SYSTEM: Show no skin rash. GENITOURINARY: Showing no costovertebral angle tenderness. PERTINENT LABORATORY AND IMAGING STUDIES: The patient has the following lab tests done. CBC showed normal white count, normal hemoglobin with slightly elevated hematocrit and unremarkable CBC differential. Coagulation studies were unremarkable. The patient's chemistry was unremarkable except for elevated glucose level of 207 and elevated CO2 of 31. The patient's troponin level was normal. IMAGING STUDIES: The patient has chest x-ray done and was read as showing no acute cardiopulmonary process. DIAGNOSES: Chronic obstructive pulmonary disease exacerbation. PLAN: 1. The patient will be admitted to medical floor. 2. The patient will have Accu-Chek before meals and at bedtime followed by moderate level sliding scale using regular insulin coverage subcutaneously. 3. The patient's diet will be consistent carbohydrate 2 g sodium diet. 4. The patient will be on DuoNeb nebulizer q.i.d. 5. The patient will be on Solu-Medrol 60 mg IV q. 8. 6. The patient will be on Levaquin 750 mg daily. 7. The patient will be on subcutaneous heparin 5000 units q. 12 hours for DVT prophylaxis. 8. The patient's home medications will be titrated as shown in the medication reconciliation section. 9. The patient will be on Tylenol 650 mg by mouth every 4 hours for fever and headache. JOB# [id number] OCN/NTS
[2018-01-05] MEDS: DUONEB *Not for PRN Use IH SCH ×4 (08:01→20:21)
[2018-01-05] MEDS: HumuLIN R SUB-Q SCH ×4 (08:58→22:02)
--- NOTE | 2018-01-05 09:00 | Event Note ---
Date: 01/05/18 Patient was admitted this am with acute exacerbation COPD Patient seen and examined medical records reviewed Patient is complaining of some pain Agree with the current management Sugars are uncontrolled probably secondary to high-dose steroids Pulmonary evaluation if needed
[2018-01-05] MEDS ORDERED: PROVENTIL IH PRN (09:31)
[2018-01-05] MEDS: HEPARIN SUB-Q SCH ×2 (09:34→22:01)
[2018-01-05] MEDS: SOLU-Medrol IV SCH ×2 (09:34→18:00)
[2018-01-05] MEDS ORDERED: NON-FORMULARY (Escitalopram Oxalate [Lexapro] 20 MG) PO SCH (10:00)
[2018-01-05] MEDS: ZESTRIL PO SCH (10:50)
[2018-01-05] MEDS: LEXAPRO PO SCH (10:50)
[2018-01-05] MEDS: PEPCID PO SCH ×2 (10:50→22:01)
[2018-01-05] MEDS: TYLENOL PO PRN ×2 (10:52→18:01)
[2018-01-05] MEDS ORDERED: NON-FORMULARY (Insulin Aspart [Novolog Flexpen] 15 UNITS) SQ SCH (11:30)
[2018-01-05] MEDS: HumaLOG SUB-Q SCH ×2 (12:56→17:56)
[2018-01-05] MEDS ORDERED: PROVENTIL IH SCH (20:00)
[2018-01-05] MEDS: DESYREL PO SCH (22:00)
[2018-01-06 05:29] LABS: Basophils # (Auto) 0.1 K/mm3 (0.0-0.1); Basophils % (Auto) 0.5 % (0.0-1.8); Hematocrit 40.7 % (30.3-42.9); Hemoglobin 13.6 gm/dl (10.1-14.3); Lymphocytes # (Auto) 0.9 K/mm3 (1.2-5.4); Lymphocytes % (Auto) 8.4 % (13.4-35.0); Mean Corpuscular HGB Conc 34 % (30-34); Mean Corpuscular Hemoglobin 30 pg (28-32); Mean Corpuscular Volume 90 fl (79-97); Monocytes # (Auto) 0.4 K/mm3 (0.0-0.8); Monocytes % (Auto) 3.3 % (0.0-7.3); Platelet Count 278 K/mm3 (140-440); Red Blood Count 4.53 M/mm3 (3.65-5.03); Red Cell Distribution Width 13.8 % (13.2-15.2)
[2018-01-06 05:55] LABS: Alanine Aminotransferase 13 units/L (7-56); BUN/Creatinine Ratio 23; Blood Urea Nitrogen 14 mg/dL (7-17); Calcium 9.8 mg/dL (8.4-10.2)
[2018-01-06 05:56] LABS: Albumin 3.5 g/dL (3.9-5); Hemolysis Index 35
[2018-01-06] MEDS: DUONEB *Not for PRN Use IH SCH ×4 (08:26→20:05)
[2018-01-06] MEDS: LEVAQUIN 750MG/150ML 750 MG/150 ML BAG IV SCH (09:05)
[2018-01-06] MEDS: PEPCID PO SCH ×2 (09:06→21:23)
[2018-01-06] MEDS: LEXAPRO PO SCH (09:06)
[2018-01-06] MEDS: SOLU-Medrol IV SCH ×3 (09:06→21:23)
[2018-01-06] MEDS: ZESTRIL PO SCH (09:07)
[2018-01-06] MEDS: HumaLOG SUB-Q SCH ×3 (09:08→19:44)
[2018-01-06] MEDS: HumuLIN R SUB-Q SCH ×3 (09:09→19:44)
[2018-01-06] MEDS: HEPARIN SUB-Q SCH (09:38)
--- NOTE | 2018-01-06 18:24 | Progress Note ---
Assessment and Plan Assessment and plan: --Acute on chronic respiratory failure; Due to acute exacerbation of COPD Continue oxygen, nebulizers, IV steroids, IV antibiotics Supportive care --Acute exacerbation of COPD; Managed with nebulizers, oxygen, antibiotics and steroids --Uncontrolled diabetes mellitus; probably secondary to high dose of steroids Accu-Cheks sliding scale, ADA diet, insulin , check A1c-8.7 Diabetic education --Hypertension; continue current antihypertensives and when necessary medications --Morbid obesity; BMI 56.5 Constantly diet modification and exercise, recommend bariatric surgical evaluation and medically stable --DVT prophylaxis; Lovenox Closely monitor the patient and adjust the management as needed History Interval history: Patient seen and examined medical records reviewed Patient feels slightly better, on high-dose steroids Uncontrolled blood sugars Patient's shortness of breath slightly improved Alert awake oriented 3 not in distress Vital signs reviewed Hospitalist Physical - Constitutional Vitals: Temp Pulse Resp BP Pulse Ox 97.9 F 86 16 127/82 92 01/06/18 11:44 01/06/18 16:38 01/06/18 16:38 01/06/18 11:44 01/06/18 11:44 General appearance: Present: no acute distress, well-nourished, obese (morbidly obese) - EENT Eyes: Present: PERRL, EOM intact - Neck Neck: Present: supple - Respiratory Respiratory effort: normal Respiratory: bilateral: diminished, wheezing, negative: rales, rhonchi - Cardiovascular Rhythm: regular Heart Sounds: Present: S1 & S2 - Extremities Extremities: no ischemia, No edema - Abdominal General gastrointestinal: soft, non-tender, non-distended, normal bowel sounds - Integumentary Integumentary: Present: clear, warm - Psychiatric Psychiatric: appropriate mood/affect, cooperative - Neurologic Neurologic: CNII-XII intact, moves all extremities Results - Labs CBC & Chem 7: 01/06/18 04:51 01/06/18 04:51 Labs: Laboratory Last Values WBC 10.9 K/mm3 (4.5-11.0) 01/06/18 04:51 RBC 4.53 M/mm3 (3.65-5.03) 01/06/18 04:51 Hgb 13.6 gm/dl (10.1-14.3) 01/06/18 04:51 Hct 40.7 % (30.3-42.9) 01/06/18 04:51 MCV 90 fl (79-97) 01/06/18 04:51 MCH 30 pg (28-32) 01/06/18 04:51 MCHC 34 % (30-34) 01/06/18 04:51 RDW 13.8 % (13.2-15.2) 01/06/18 04:51 Plt Count 278 K/mm3 (140-440) 01/06/18 04:51 Lymph % (Auto) 8.4 % (13.4-35.0) L 01/06/18 04:51 [place] % (Auto) 3.3 % (0.0-7.3) 01/06/18 04:51 Eos % (Auto) 0.0 % (0.0-4.3) 01/06/18 04:51 Baso % (Auto) 0.5 % (0.0-1.8) 01/06/18 04:51 Lymph # 0.9 K/mm3 (1.2-5.4) L 01/06/18 04:51 [place] # 0.4 K/mm3 (0.0-0.8) 01/06/18 04:51 Eos # 0.0 K/mm3 (0.0-0.4) 01/06/18 04:51 Baso # 0.1 K/mm3 (0.0-0.1) 01/06/18 04:51 Seg Neutrophils % 87.8 % (40.0-70.0) H 01/06/18 04:51 Seg Neutrophils # 9.6 K/mm3 (1.8-7.7) H 01/06/18 04:51 PT 11.7 Sec. (12.2-14.9) L 01/04/18 20:48 INR 0.82 (0.87-1.13) L 01/04/18 20:48 APTT 26.0 Sec. (24.2-36.6) 01/04/18 20:48 Sodium 137 mmol/L (137-145) 01/06/18 04:51 Potassium 4.7 mmol/L (3.6-5.0) 01/06/18 04:51 Chloride 98.6 mmol/L (98-107) 01/06/18 04:51 Carbon Dioxide 27 mmol/L (22-30) 01/06/18 04:51 Anion Gap 16 mmol/L 01/06/18 04:51 BUN 14 mg/dL (7-17) 01/06/18 04:51 Creatinine 0.6 mg/dL (0.7-1.2) L 01/06/18 04:51 Estimated GFR > 60 ml/min 01/06/18 04:51 BUN/Creatinine Ratio 23 % 01/06/18 04:51 Glucose 284 mg/dL (65-100) H 01/06/18 04:51 POC Glucose 328 (70-105) H 01/06/18 16:22 Calcium 9.8 mg/dL (8.4-10.2) 01/06/18 04:51 Total Bilirubin 0.40 mg/dL (0.1-1.2) 01/06/18 04:51 AST 9 units/L (5-40) 01/06/18 04:51 ALT 13 units/L (7-56) 01/06/18 04:51 Alkaline Phosphatase 91 units/L (35-129) 01/06/18 04:51 Troponin T < 0.010 ng/mL (0.00-0.029) 01/05/18 02:00 Total Protein 6.1 g/dL (6.3-8.2) L 01/06/18 04:51 Albumin 3.5 g/dL (3.9-5) L 01/06/18 04:51 Albumin/Globulin Ratio 1.3 % 01/06/18 04:51
[2018-01-06] MEDS: TYLENOL PO PRN (19:03)
[2018-01-06] MEDS: PULMICORT IH SCH (20:05)
[2018-01-06] MEDS ORDERED: PROVENTIL IH PRN (20:16)
[2018-01-06] MEDS: LOVENOX SUB-Q SCH (21:22)
[2018-01-06] MEDS: DESYREL PO SCH (21:23)
[2018-01-06] MEDS: ATIVAN PO SCH (21:23)
[2018-01-07] MEDS: HumuLIN R SUB-Q SCH ×5 (00:13→22:33)
[2018-01-07] MEDS: SOLU-Medrol IV SCH ×3 (06:39→21:32)
[2018-01-07 07:01] LABS: Hematocrit 40.4 % (30.3-42.9); Hemoglobin 13.3 gm/dl (10.1-14.3); Lymphocytes % (Auto) 9.7 % (13.4-35.0); Mean Corpuscular HGB Conc 33 % (30-34); Mean Corpuscular Hemoglobin 30 pg (28-32); Mean Corpuscular Volume 90 fl (79-97); Monocytes # (Auto) 0.4 K/mm3 (0.0-0.8); Monocytes % (Auto) 3.8 % (0.0-7.3); Platelet Count 253 K/mm3 (140-440); Red Blood Count 4.47 M/mm3 (3.65-5.03)
[2018-01-07 07:19] LABS: BUN/Creatinine Ratio 27; Blood Urea Nitrogen 16 mg/dL (7-17); Calcium 9.7 mg/dL (8.4-10.2); Hemolysis Index 3
[2018-01-07] MEDS: HumaLOG SUB-Q SCH ×3 (09:00→18:30)
[2018-01-07] MEDS: LEXAPRO PO SCH (11:08)
[2018-01-07] MEDS: ATIVAN PO SCH ×2 (11:09→21:26)
[2018-01-07] MEDS: PEPCID PO SCH ×2 (11:10→21:25)
[2018-01-07] MEDS: ZESTRIL PO SCH (11:10)
[2018-01-07] MEDS: LEVAQUIN 750MG/150ML 750 MG/150 ML BAG IV SCH (11:10)
[2018-01-07] MEDS: DUONEB *Not for PRN Use IH SCH ×4 (12:30→21:19)
[2018-01-07] MEDS: PULMICORT IH SCH ×2 (13:57→21:19)
[2018-01-07] MEDS ORDERED: LASIX IV ONE (19:24)
[2018-01-07] MEDS: MORPHINE IV PRN ×2 (19:26→23:39)
--- NOTE | 2018-01-07 19:28 | Progress Note ---
Assessment and Plan Assessment and plan: --Acute exacerbation of COPD; Managed with nebulizers, oxygen, antibiotics and steroids --Acute on chronic respiratory failure; Due to acute exacerbation of COPD Continue oxygen, nebulizers, IV steroids, IV antibiotics Supportive care --Uncontrolled diabetes mellitus; probably secondary to high dose of steroids Accu-Cheks sliding scale, ADA diet, insulin , check A1c-8.7 Diabetic education --Hypertension; continue current antihypertensives and when necessary medications --Morbid obesity; BMI 56.5 Constantly diet modification and exercise, recommend bariatric surgical evaluation and medically stable --DVT prophylaxis; Lovenox Closely monitor the patient and adjust the management as needed History Interval history: Patient seen and examined medical records reviewed No new events reported, Complaints of worsening shortness of breath Alert awake oriented, in signs reviewed Patient asks for more pain medications Hospitalist Physical - Constitutional Vitals: Temp Pulse Resp BP Pulse Ox 98.2 F 75 19 142/80 95 01/07/18 17:47 01/07/18 18:22 01/07/18 18:22 01/07/18 17:46 01/07/18 17:47 General appearance: Present: no acute distress, well-nourished, obese (morbidly obese) - EENT Eyes: Present: PERRL, EOM intact - Neck Neck: Present: supple, normal ROM - Respiratory Respiratory effort: normal Respiratory: bilateral: diminished, rhonchi, negative: rales, wheezing - Cardiovascular Rhythm: regular Heart Sounds: Present: S1 & S2 - Extremities Extremities: no ischemia, No edema - Abdominal General gastrointestinal: soft, non-tender, non-distended, normal bowel sounds - Integumentary Integumentary: Present: clear, warm - Psychiatric Psychiatric: appropriate mood/affect, cooperative - Neurologic Neurologic: CNII-XII intact, moves all extremities Results - Labs CBC & Chem 7: 01/07/18 05:48 01/07/18 05:48 Labs: Laboratory Last Values WBC 10.2 K/mm3 (4.5-11.0) 01/07/18 05:48 RBC 4.47 M/mm3 (3.65-5.03) 01/07/18 05:48 Hgb 13.3 gm/dl (10.1-14.3) 01/07/18 05:48 Hct 40.4 % (30.3-42.9) 01/07/18 05:48 MCV 90 fl (79-97) 01/07/18 05:48 MCH 30 pg (28-32) 01/07/18 05:48 MCHC 33 % (30-34) 01/07/18 05:48 RDW 14.0 % (13.2-15.2) 01/07/18 05:48 Plt Count 253 K/mm3 (140-440) 01/07/18 05:48 Lymph % (Auto) 9.7 % (13.4-35.0) L 01/07/18 05:48 [place] % (Auto) 3.8 % (0.0-7.3) 01/07/18 05:48 Eos % (Auto) 0.0 % (0.0-4.3) 01/07/18 05:48 Baso % (Auto) 0.0 % (0.0-1.8) 01/07/18 05:48 Lymph # 1.0 K/mm3 (1.2-5.4) L 01/07/18 05:48 [place] # 0.4 K/mm3 (0.0-0.8) 01/07/18 05:48 Eos # 0.0 K/mm3 (0.0-0.4) 01/07/18 05:48 Baso # 0.0 K/mm3 (0.0-0.1) 01/07/18 05:48 Seg Neutrophils % 86.5 % (40.0-70.0) H 01/07/18 05:48 Seg Neutrophils # 8.8 K/mm3 (1.8-7.7) H 01/07/18 05:48 PT 11.7 Sec. (12.2-14.9) L 01/04/18 20:48 INR 0.82 (0.87-1.13) L 01/04/18 20:48 APTT 26.0 Sec. (24.2-36.6) 01/04/18 20:48 Sodium 142 mmol/L (137-145) 01/07/18 05:48 Potassium 4.5 mmol/L (3.6-5.0) 01/07/18 05:48 Chloride 101.6 mmol/L (98-107) 01/07/18 05:48 Carbon Dioxide 30 mmol/L (22-30) 01/07/18 05:48 Anion Gap 15 mmol/L 01/07/18 05:48 BUN 16 mg/dL (7-17) 01/07/18 05:48 Creatinine 0.6 mg/dL (0.7-1.2) L 01/07/18 05:48 Estimated GFR > 60 ml/min 01/07/18 05:48 BUN/Creatinine Ratio 27 % 01/07/18 05:48 Glucose 285 mg/dL (65-100) H 01/07/18 05:48 POC Glucose 175 (70-105) H 01/07/18 17:34 Calcium 9.7 mg/dL (8.4-10.2) 01/07/18 05:48 Phosphorus 3.20 mg/dL (2.5-4.5) 01/07/18 05:48 Magnesium 2.30 mg/dL (1.7-2.3) 01/07/18 05:48 Total Bilirubin 0.40 mg/dL (0.1-1.2) 01/06/18 04:51 AST 9 units/L (5-40) 01/06/18 04:51 ALT 13 units/L (7-56) 01/06/18 04:51 Alkaline Phosphatase 91 units/L (35-129) 01/06/18 04:51 Troponin T < 0.010 ng/mL (0.00-0.029) 01/05/18 02:00 Total Protein 6.1 g/dL (6.3-8.2) L 01/06/18 04:51 Albumin 3.5 g/dL (3.9-5) L 01/06/18 04:51 Albumin/Globulin Ratio 1.3 % 01/06/18 04:51
[2018-01-07] MEDS: LOVENOX SUB-Q SCH (21:25)
[2018-01-07] MEDS: DESYREL PO SCH (21:25)
[2018-01-08] MEDS: PULMICORT IH SCH ×2 (08:30→21:03)
[2018-01-08] MEDS: DUONEB *Not for PRN Use IH SCH ×4 (08:30→21:03)
[2018-01-08] MEDS: HumuLIN R SUB-Q SCH ×4 (08:31→22:50)
[2018-01-08] MEDS: HumaLOG SUB-Q SCH ×3 (08:32→18:10)
[2018-01-08] MEDS: LEXAPRO PO SCH (12:11)
[2018-01-08] MEDS: ZESTRIL PO SCH (12:11)
[2018-01-08] MEDS: LEVAQUIN PO SCH (12:12)
[2018-01-08] MEDS: ATIVAN PO SCH ×2 (12:12→22:48)
[2018-01-08] MEDS: LASIX IV SCH (12:13)
[2018-01-08] MEDS: PEPCID PO SCH ×2 (12:14→22:48)
[2018-01-08] MEDS: MORPHINE IV PRN ×2 (12:17→20:31)
[2018-01-08] MEDS: SOLU-Medrol IV SCH ×2 (12:26→20:40)
--- NOTE | 2018-01-08 22:00 | Progress Note ---
Assessment and Plan Assessment and plan: --Acute on chronic respiratory failure; Due to acute exacerbation of COPD Continue oxygen, nebulizers, IV steroids, IV antibiotics Supportive care --Acute exacerbation of COPD; Managed with nebulizers, oxygen, antibiotics and steroids --Uncontrolled diabetes mellitus; probably secondary to high dose of steroids Accu-Cheks sliding scale, ADA diet, insulin , check A1c-8.7 Diabetic education --Hypertension; continue current antihypertensives and when necessary medications --Morbid obesity; BMI 56.5 Constantly diet modification and exercise, recommend bariatric surgical evaluation and medically stable --DVT prophylaxis; Lovenox Closely monitor the patient and adjust the management as needed Patient has home oxygen Possible discharge tomorrow with home health if stable History Interval history: Patient seen and examined medical records reviewed Admitted with acute on chronic respiratory failure, secondary to acute exacerbation of COPD Feels slightly better, still complains of severe wheezing and shortness of breath Alert awake oriented 3 not in acute distress Vital signs reviewed Hospitalist Physical - Constitutional Vitals: Temp Pulse Resp BP Pulse Ox 98.6 F 83 20 130/79 97 01/08/18 17:26 01/08/18 19:55 01/08/18 21:01 01/08/18 17:26 01/08/18 19:45 General appearance: Present: no acute distress, well-nourished, obese (morbidly obese) - EENT Eyes: Present: PERRL, EOM intact - Neck Neck: Present: supple, normal ROM - Respiratory Respiratory effort: normal Respiratory: bilateral: diminished, wheezing, negative: rales, rhonchi - Cardiovascular Rhythm: regular Heart Sounds: Present: S1 & S2 - Extremities Extremities: no ischemia, No edema - Abdominal General gastrointestinal: soft, non-tender, non-distended, normal bowel sounds - Integumentary Integumentary: Present: clear, warm - Psychiatric Psychiatric: appropriate mood/affect, cooperative - Neurologic Neurologic: CNII-XII intact, moves all extremities Results - Labs CBC & Chem 7: 01/07/18 05:48 01/07/18 05:48 Labs: Laboratory Last Values WBC 10.2 K/mm3 (4.5-11.0) 01/07/18 05:48 RBC 4.47 M/mm3 (3.65-5.03) 01/07/18 05:48 Hgb 13.3 gm/dl (10.1-14.3) 01/07/18 05:48 Hct 40.4 % (30.3-42.9) 01/07/18 05:48 MCV 90 fl (79-97) 01/07/18 05:48 MCH 30 pg (28-32) 01/07/18 05:48 MCHC 33 % (30-34) 01/07/18 05:48 RDW 14.0 % (13.2-15.2) 01/07/18 05:48 Plt Count 253 K/mm3 (140-440) 01/07/18 05:48 Lymph % (Auto) 9.7 % (13.4-35.0) L 01/07/18 05:48 [place] % (Auto) 3.8 % (0.0-7.3) 01/07/18 05:48 Eos % (Auto) 0.0 % (0.0-4.3) 01/07/18 05:48 Baso % (Auto) 0.0 % (0.0-1.8) 01/07/18 05:48 Lymph # 1.0 K/mm3 (1.2-5.4) L 01/07/18 05:48 [place] # 0.4 K/mm3 (0.0-0.8) 01/07/18 05:48 Eos # 0.0 K/mm3 (0.0-0.4) 01/07/18 05:48 Baso # 0.0 K/mm3 (0.0-0.1) 01/07/18 05:48 Seg Neutrophils % 86.5 % (40.0-70.0) H 01/07/18 05:48 Seg Neutrophils # 8.8 K/mm3 (1.8-7.7) H 01/07/18 05:48 PT 11.7 Sec. (12.2-14.9) L 01/04/18 20:48 INR 0.82 (0.87-1.13) L 01/04/18 20:48 APTT 26.0 Sec. (24.2-36.6) 01/04/18 20:48 Sodium 142 mmol/L (137-145) 01/07/18 05:48 Potassium 4.5 mmol/L (3.6-5.0) 01/07/18 05:48 Chloride 101.6 mmol/L (98-107) 01/07/18 05:48 Carbon Dioxide 30 mmol/L (22-30) 01/07/18 05:48 Anion Gap 15 mmol/L 01/07/18 05:48 BUN 16 mg/dL (7-17) 01/07/18 05:48 Creatinine 0.6 mg/dL (0.7-1.2) L 01/07/18 05:48 Estimated GFR > 60 ml/min 01/07/18 05:48 BUN/Creatinine Ratio 27 % 01/07/18 05:48 Glucose 285 mg/dL (65-100) H 01/07/18 05:48 POC Glucose 311 (70-105) H 01/08/18 21:56 Calcium 9.7 mg/dL (8.4-10.2) 01/07/18 05:48 Phosphorus 3.20 mg/dL (2.5-4.5) 01/07/18 05:48 Magnesium 2.30 mg/dL (1.7-2.3) 01/07/18 05:48 Total Bilirubin 0.40 mg/dL (0.1-1.2) 01/06/18 04:51 AST 9 units/L (5-40) 01/06/18 04:51 ALT 13 units/L (7-56) 01/06/18 04:51 Alkaline Phosphatase 91 units/L (35-129) 01/06/18 04:51 Troponin T < 0.010 ng/mL (0.00-0.029) 01/05/18 02:00 Total Protein 6.1 g/dL (6.3-8.2) L 01/06/18 04:51 Albumin 3.5 g/dL (3.9-5) L 01/06/18 04:51 Albumin/Globulin Ratio 1.3 % 01/06/18 04:51
[2018-01-08] MEDS: DESYREL PO SCH (22:48)
[2018-01-08] MEDS: LOVENOX SUB-Q SCH (22:48)
[2018-01-09] MEDS: MORPHINE IV PRN ×2 (06:34→12:41)
[2018-01-09 07:04] LABS: Basophils % (Auto) 0.1 % (0.0-1.8); Hematocrit 45.8 % (30.3-42.9); Lymphocytes # (Auto) 1.1 K/mm3 (1.2-5.4); Lymphocytes % (Auto) 11.4 % (13.4-35.0); Mean Corpuscular HGB Conc 33 % (30-34); Mean Corpuscular Hemoglobin 30 pg (28-32); Mean Corpuscular Volume 92 fl (79-97); Monocytes # (Auto) 0.5 K/mm3 (0.0-0.8); Monocytes % (Auto) 5.2 % (0.0-7.3); Platelet Count 295 K/mm3 (140-440); Red Blood Count 4.99 M/mm3 (3.65-5.03)
[2018-01-09 07:10] LABS: BUN/Creatinine Ratio 23; Blood Urea Nitrogen 21 mg/dL (7-17); Calcium 10.5 mg/dL (8.4-10.2); Hemolysis Index 2
[2018-01-09] MEDS: HumaLOG SUB-Q SCH ×3 (08:54→17:16)
[2018-01-09] MEDS: HumuLIN R SUB-Q SCH ×3 (08:54→17:16)
[2018-01-09] MEDS: LEXAPRO PO SCH (09:50)
[2018-01-09] MEDS: LASIX IV SCH (09:50)
[2018-01-09] MEDS: SOLU-Medrol IV SCH (09:50)
[2018-01-09] MEDS: ATIVAN PO SCH (09:50)
[2018-01-09] MEDS: PEPCID PO SCH (09:51)
[2018-01-09] MEDS: ZESTRIL PO SCH (09:51)
[2018-01-09] MEDS: LEVAQUIN PO SCH (09:51)
[2018-01-09] MEDS: DUONEB *Not for PRN Use IH SCH ×2 (10:22→13:25)
[2018-01-09] MEDS: PULMICORT IH SCH (10:22)
--- NOTE | 2018-01-09 12:23 | Discharge Summary ---
Providers - Providers Date of Admission: 01/05/18 04:33 Date of discharge: 01/09/18 Attending physician: BARRON JUSTIN 01/06/18 09:02 Physical Therapy Evaluation and Treat [CONS] Routine Comment: Reason For Exam: difficulty in ambulation Primary care physician: PRIYANK GARCIA Hospitalization Reason for admission: worsening shortness of breath/acute respiratory failure Condition: Stable Pertinent studies: Chest x-ray; no abnormality noted Hospital course: 52-year-old morbidly obese female patient well known to our service with history of COPD hypertension bipolar disorder bronchial asthma home oxygen dependent, is admitted through emergency room with worsening shortness of breath and acute on chronic hypoxic respiratory failure Patient was initially evaluated in the hospital symptomatically managed With oxygen nebulizers and high-dose IV steroids and IV antibiotics and inhalation steroids Patient's symptoms significantly but gradually improved, Steroid dose was tapered The patient is comfortable on new complaints Still has mild wheezing, afebrile vital signs stable Physical examination prior to discharge did not reveal any new changes Patient is being discharged on antibiotics, steroids 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, 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 Patient is morbidly obese; counseling advised exercise and dietary modification Patient is hemodynamically and clinically stable at discharge Discharge Diagnosis: --Acute on chronic hypoxic respiratory failure; --Acute exacerbation of COPD; --Uncontrolled diabetes mellitus; --Hypertension; continue current antihypertensives --Morbid obesity; BMI 56.5 Disposition: DC-01 TO HOME OR SELFCARE Time spent for discharge: 32 min Core Measure Documentation - Palliative Care Palliative Care/ Comfort Measures: Not Applicable - Core Measures Any of the following diagnoses?: none Exam - Constitutional Vitals: Temp Pulse Resp BP Pulse Ox 98.5 F 65 20 130/71 97 01/09/18 05:47 01/09/18 10:31 01/09/18 10:31 01/09/18 09:51 01/09/18 10:22 General appearance: Present: no acute distress, well-nourished, obese (morbidly obese) - EENT Eyes: Present: PERRL, EOM intact - Neck Neck: Present: supple, normal ROM - Respiratory Respiratory effort: normal Respiratory: bilateral: diminished, negative: rales, rhonchi, wheezing - Cardiovascular Rhythm: regular Heart Sounds: Present: S1 & S2 - Extremities Extremities: no ischemia, No edema - Abdominal General gastrointestinal: Present: soft, non-tender, non-distended, normal bowel sounds - Integumentary Integumentary: Present: clear, warm - Musculoskeletal Musculoskeletal: strength equal bilaterally - Psychiatric Psychiatric: appropriate mood/affect, cooperative - Neurologic Neurologic: CNII-XII intact, moves all extremities Plan Activity: advance as tolerated, fall precautions Diet: diabetic Additional Instructions: Continue your home oxygen as before. If you have severe shortness of breath or chest pain contact M.D. or go to emergency room. Advice diet modification, exercise as tolerated and weight reduction when you' re medically stable Follow up with: PRIYANK GARCIA MD [Primary Care Provider] - 3-5 Days Prescriptions: ALBUTEROL Inhaler [ProAir HFA Inhaler] 2 puff IH QID PRN #1 inhalation PRN Reason: Shortness Of Breath guaiFENesin DM [Guaifenesin Dm Syrup] 10 ml PO TID PRN 10 Days #7 oral.liqd PRN Reason: Cough levoFLOXacin [Levaquin TAB] 750 mg PO DAILY #2 tablet Prednisone [predniSONE 10 mg (6-Day Pack, 21 Tabs)] 10 mg PO .TAPER #1 tab.ds.pk
[2018-01-09 12:51] VITALS: BP 108/74
== END 2018-01-09 17:46 | disposition home or self-care (01) | DRG 189 ==
LOC: ED 19:05 → 3A 01-05 04:33
PROVIDERS: ADMIT Internal Medicine; ATTEND Internal Medicine
DX: J96.21 Acute and chronic respiratory failure with hypoxia (principal); J44.1 Chronic obstructive pulmonary disease with (acute) exacerbation; Z68.43 Body mass index [BMI] 50.0-59.9, adult; E66.01 Morbid (severe) obesity due to excess calories; I11.0 Hypertensive heart disease with heart failure; I50.9 Heart failure, unspecified; M19.90 Unspecified osteoarthritis, unspecified site; F31.9 Bipolar disorder, unspecified; F20.9 Schizophrenia, unspecified; F17.200 Nicotine dependence, unspecified, uncomplicated; Z88.5 Allergy status to narcotic agent; Z71.3 Dietary counseling and surveillance; Z88.8 Allergy status to other drugs, medicaments and biological substances; Z99.81 Dependence on supplemental oxygen; Z79.4 Long term (current) use of insulin; Z79.899 Other long term (current) drug therapy; Z79.51 Long term (current) use of inhaled steroids; E11.65 Type 2 diabetes mellitus with hyperglycemia
CPT/HCPCS: 36415; 71046; 80048; 80053; 82962; 83735; 84100; 84484; 85025; 85610; 85730; 93005; 93010; 94640; 94760; 96374; 96375; 99406; J1644; J1650; J1815; J1940; J1956; J2270; J2920; J2930

== ENCOUNTER 2018-01-16 18:20 | Emergency (ER) | payer MEDICARE ==
[2018-01-16 18:29] VITALS: BP 132/79
--- NOTE | 2018-01-16 20:15 | XRay Report ---
FINAL REPORT EXAM: XR KNEE 1-2V RT HISTORY: trauma, pain TECHNIQUE: Right knee 2 views PRIORS: None. FINDINGS: No fracture is identified. No dislocation seen. No evidence of joint effusion. Patella demonstrates normal positioning. No acute bony abnormality identified. There is medial tibiofemoral joint space narrowing with small marginal osteophyte. IMPRESSION: Negative knee series
--- NOTE | 2018-01-16 21:33 | Emergency Department Report ---
ED Lower Extremity HPI - General Chief Complaint: Fall Stated Complaint: FALL/PAIN Time Seen by Provider: 01/16/18 21:31 Source: patient Mode of arrival: Wheelchair Limitations: No Limitations - History of Present Illness Initial Comments: 52-year-old female with a past medical history of osteoarthritis, fibromyalgia, chronic pain, currently in pain management comes in for a ground- level fall approximately 11:30 today. Patient reports that she is put ice and took Tylenol prior to arrival. Patient reports that she has a bad hip and her leg gave out. Patient points that she fell on her knees. She also reports that when she had fallen she fell against the wall and hit her right side of her head. Patient's currently on Ativan 1 mg twice a day, trazodone 100 mg nightly lisinopril 20 mg daily Lexapro 25 mg daily NovoLog 15 units 3 times a day and morphine 15 mg twice a day. Patient reports her primary care doctor is Dr. Emi Garcia. Complaint: fall -: This morning Time: 11:30 Injury: Leg: Right Type of Injury: blunt Place: home Severity scale (0 -10): 7 Improves With: nothing Worsens With: palpation Context: fall Associated Symptoms: swelling Treatments Prior to Arrival: cold therapy, other (Tylenol) - Related Data Home Medications Medication Instructions Recorded Confirmed Last Taken Escitalopram Oxalate [Lexapro] 20 mg PO DAILY 11/05/17 01/05/18 01/16/18 Lisinopril [Zestril] 20 mg PO DAILY 11/05/17 01/16/18 1 Day Ago ~01/15/18 traZODone [Desyrel] 100 mg PO QPM 11/05/17 01/16/18 1 Day Ago ~01/15/18 LORazepam [Ativan] 1 mg PO BID MDD 1 mg 11/06/17 01/16/18 1 Day Ago ~01/15/18 Dilaudid 4 mg PO Q4H PRN 01/05/18 01/16/18 01/04/18 Morphine 15 mg PO BID PRN 01/05/18 01/16/18 1 Day Ago ~01/15/18 Previous Rx's Medication Instructions Recorded Last Taken Type ALBUTEROL NEB's [Proventil 0.083% 5 mg IH Q4H PRN nebu 05/08/17 01/16/18 Rx NEBS] Albuterol Sulfate [Proair 90 mcg IH Q4HR PRN #2 aer.pow.ba 12/22/17 01/16/18 Rx Respiclick] Ipratropium [place] [Atrovent Hfa] 12.9 gm IH Q4HR #2 hfa.aer.ad 12/22/17 1 Day Ago Rx ~01/15/18 ALBUTEROL Inhaler [ProAir HFA 2 puff IH QID PRN #1 inhalation 01/09/18 01/16/18 Rx Inhaler] Insulin NPH/Regular [NovoLIN 70/30] 26 unit SUB-Q BIDDIAB 10 Days 01/09/1801/16 Rx units Ibuprofen [Motrin 600 MG tab] 600 mg PO Q8H PRN #30 tablet 01/16/18 Unknown Rx Allergies Allergy/AdvReac Type Severity Reaction Status Date / Time oxycodone HCl [From Percocet] Allergy Angioedema Verified 07/10/16 17:11 Penicillins Allergy Angioedema Verified 07/10/16 17:11 prednisone Allergy Unknown Verified 07/10/16 17:11 bupropion HCl AdvReac Unknown Verified 07/10/16 17:11 [From Wellbutrin] divalproex sodium AdvReac Unknown Verified 07/10/16 17:11 [From Depakote] fluoxetine HCl [From Prozac] AdvReac Unknown Verified 07/10/16 17:11 lithium AdvReac Unknown Verified 07/10/16 17:11 ED Review of Systems ROS: Stated complaint: FALL/PAIN Other details as noted in HPI ED Past Medical Hx - Past Medical History Hx Hypertension: Yes Hx CVA: No Hx Heart Attack/AMI: No Hx Congestive Heart Failure: Yes Hx Diabetes: Yes Hx Deep Vein Thrombosis: No Hx Pulmonary Embolism: No Hx GERD: No Hx Liver Disease: No Hx Renal Disease: No Hx Sickle Cell Disease: No Hx Arthritis: Yes Hx Seizures: No Hx Kidney Stones: No Hx Psychiatric Treatment: Yes (Bipolar, Schziophrenia) Hx Asthma: Yes Hx COPD: Yes Hx Tuberculosis: No Hx HIV: No Additional medical history: Bronchitis, Home O2 2 liters - Surgical History Hx Coronary Stent: No Hx Open Heart Surgery: No Hx Pacemaker: No Hx Internal Defibrillator: No Hx Cholecystectomy: No Hx Appendectomy: No Hx Breast Surgery: No Additional Surgical History: spinal fusion, left hip - Social History Smoking Status: Current Every Day Smoker Substance Use Type: None - Medications Home Medications: Home Medications Medication Instructions Recorded Confirmed Last Taken Type ALBUTEROL NEB's [Proventil 0.083% 5 mg IH Q4H PRN nebu 05/08/17 01/05/18 Rx NEBS] Escitalopram Oxalate [Lexapro] 20 mg PO DAILY 11/05/17 01/05/18 01/16/18 History Lisinopril [Zestril] 20 mg PO DAILY 11/05/17 01/16/18 1 Day Ago History ~01/15/18 traZODone [Desyrel] 100 mg PO QPM 11/05/17 01/16/18 1 Day Ago History ~01/15/18 LORazepam [Ativan] 1 mg PO BID MDD 1 mg 11/06/17 01/16/18 1 Day Ago History ~01/15/18 Albuterol Sulfate [Proair 90 mcg IH Q4HR PRN #2 aer.pow.ba 12/22/17 01/05/18 Rx Respiclick] Ipratropium [place] [Atrovent Hfa] 12.9 gm IH Q4HR #2 hfa.aer.ad 12/22/17 1 Day Ago Rx ~01/15/18 Dilaudid 4 mg PO Q4H PRN 01/05/18 01/16/18 01/04/18 History Morphine 15 mg PO BID PRN 01/05/18 01/16/18 1 Day Ago History ~01/15/18 ALBUTEROL Inhaler [ProAir HFA 2 puff IH QID PRN #1 inhalation 01/09/18 Rx Inhaler] Insulin NPH/Regular [NovoLIN 70/30] 26 unit SUB-Q BIDDIAB 10 Days 01/09/1801/1601/16/18 Rx units Ibuprofen [Motrin 600 MG tab] 600 mg PO Q8H PRN #30 tablet 01/16/18 Unknown Rx ED Physical Exam - General Limitations: No Limitations General appearance: alert, in no apparent distress - Head Head exam: Present: atraumatic, normocephalic, other (no redness or erythematous or edematous appreciated) - Eye Eye exam: Present: EOMI - ENT ENT exam: Present: mucous membranes moist - Neck Neck exam: Present: normal inspection, full ROM. Absent: tenderness - Respiratory Respiratory exam: Present: normal lung sounds bilaterally. Absent: respiratory distress - Cardiovascular Cardiovascular Exam: Present: regular rate, normal rhythm. Absent: systolic murmur, diastolic murmur, rubs, gallop - Expanded Lower Extremity Exam Right Hip exam: Present: normal inspection, full ROM Upper Leg exam: Present: normal inspection, full ROM Knee exam: Present: tenderness, swelling Lower Leg exam: Present: tenderness, swelling Foot/Toe exam: Present: normal inspection, full ROM. Absent: tenderness Neuro vascular tendon exam: Present: no vascular compromise - Neurological Exam Neurological exam: Present: alert, oriented X3 - Psychiatric Psychiatric exam: Present: normal affect, normal mood - Skin Skin exam: Present: warm, dry, intact, normal color. Absent: rash ED Course Vital Signs 01/16/18 18:27 Temperature 97.2 F L Pulse Rate 78 Respiratory 18 Rate Blood Pressure 132/79 O2 Sat by Pulse 95 Oximetry ED Lower Extremity MDM - Radiology Data Radiology results: report reviewed, image reviewed FINAL REPORT EXAM: XR KNEE 1-2V RT HISTORY: trauma, pain TECHNIQUE: Right knee 2 views PRIORS: None. FINDINGS: No fracture is identified. No dislocation seen. No evidence of joint effusion. Patella demonstrates normal positioning. No acute bony abnormality identified. There is medial tibiofemoral joint space narrowing with small marginal osteophyte. IMPRESSION: Negative knee series Transcribed By: JOAHNNA Dictated By: OPAL ELIZABETH MD Electronically Authenticated By: OPAL ELIZABETH MD Signed Date/Time: 01/16/182013 DD/ 13 TD/TT: 01/16/182013 - Medical Decision Making Patient has been evaluated by this provider fast track. Ibuprofen 600 mg ordered for pain management Discussed patient to continue with her pain medication and pain management. Discussed the patient is symptoms persist or gets worse to follow-up with her primary care provider. Critical care attestation.: If time is entered above; I have spent that time in minutes in the direct care of this critically ill patient, excluding procedure time. ED Disposition Clinical Impression: Right leg pain Fall Qualifiers: Encounter type: initial encounter Qualified Code(s): W19.XXXA - Unspecified fall, initial encounter Disposition: DC-01 TO HOME OR SELFCARE Is pt being admited?: No Does the pt Need Aspirin: No Condition: Stable Instructions: Fall Prevention for Older Adults (ED), Fall Prevention (ED) Additional Instructions: Continue with her chronic pain medications I've also ordered ibuprofen for pain management. If his symptoms persist follow up with Dr. Emi Garcia her primary care provider. Prescriptions: Ibuprofen [Motrin 600 MG tab] 600 mg PO Q8H PRN #30 tablet PRN Reason: Pain Referrals: PRIMARY CARE,MD [Primary Care Provider] - 3-5 Days EMI GARCIA MD [Staff Physician] - 3-5 Days
[2018-01-16] MEDS ORDERED: MOTRIN PO ONE (22:00)
== END 2018-01-16 22:43 | disposition home or self-care (01) ==
LOC: ED 18:20
DX: M79.604 Pain in right leg (principal); I11.0 Hypertensive heart disease with heart failure; I50.9 Heart failure, unspecified; E11.9 Type 2 diabetes mellitus without complications; M19.90 Unspecified osteoarthritis, unspecified site; F31.9 Bipolar disorder, unspecified; F20.9 Schizophrenia, unspecified; J44.9 Chronic obstructive pulmonary disease, unspecified; F17.200 Nicotine dependence, unspecified, uncomplicated; Z79.4 Long term (current) use of insulin; Z79.899 Other long term (current) drug therapy; Z88.0 Allergy status to penicillin; Z88.8 Allergy status to other drugs, medicaments and biological substances; W18.39XA Other fall on same level, initial encounter; Y93.89 Activity, other specified; Y99.8 Other external cause status; Y92.098 Other place in other non-institutional residence as the place of occurrence of the external cause
CPT/HCPCS: 99283

== ENCOUNTER 2018-01-21 19:52 | Emergency (ER) | payer MEDICARE ==
[2018-01-21] MEDS ORDERED: TORADOL IM ONE (22:58)
--- NOTE | 2018-01-21 23:04 | Emergency Department Report ---
ED Lower Extremity HPI - General Chief Complaint: Extremity Injury, Lower Stated Complaint: RIGHT KNEE PAIN Time Seen by Provider: 01/21/18 22:54 Source: patient Mode of arrival: Wheelchair Limitations: Physical Limitation - History of Present Illness Initial Comments: Patient presents for sequela last week pain states she is out of pain meds and requests pain medicine patient has not seen orthopedics for knee pain status post fall 1 week ago no no fracture no soft tissue abnormality presents tonight requesting increasing pain medicine patient is on Dania p.m. aware for lorazepam prescribed by PCP last 2016 patient denies any fall injury or trauma MD Complaint: other (knee pain) -: week(s) (1), unknown (chronic knee pain ) Injury: Knee: Right Type of Injury: blunt, other (fall) Place: home Severity: moderate Severity scale (0 -10): 3 Improves With: rest Worsens With: weight bearing, movement Context: fall (1 week ago ) Associated Symptoms: able to partially bear weight - Related Data Home Medications Medication Instructions Recorded Confirmed Last Taken Escitalopram Oxalate [Lexapro] 20 mg PO DAILY 11/05/17 01/05/18 01/16/18 Lisinopril [Zestril] 20 mg PO DAILY 11/05/17 01/16/18 1 Day Ago ~01/15/18 traZODone [Desyrel] 100 mg PO QPM 11/05/17 01/16/18 1 Day Ago ~01/15/18 LORazepam [Ativan] 1 mg PO BID MDD 1 mg 11/06/17 01/16/18 1 Day Ago ~01/15/18 Dilaudid 4 mg PO Q4H PRN 01/05/18 01/16/18 01/04/18 Morphine 15 mg PO BID PRN 01/05/18 01/16/18 1 Day Ago ~01/15/18 Previous Rx's Medication Instructions Recorded Last Taken Type ALBUTEROL NEB's [Proventil 0.083% 5 mg IH Q4H PRN nebu 05/08/17 01/16/18 Rx NEBS] Albuterol Sulfate [Proair 90 mcg IH Q4HR PRN #2 aer.pow.ba 12/22/17 01/16/18 Rx Respiclick] Ipratropium [place] [Atrovent Hfa] 12.9 gm IH Q4HR #2 hfa.aer.ad 12/22/17 1 Day Ago Rx ~01/15/18 ALBUTEROL Inhaler (OR & NICU) 2 puff IH QID PRN #1 inhalation 01/09/18 01/16/18 Rx [ProAir HFA Inhaler] Insulin NPH/Regular [NovoLIN 70/30] 26 unit SUB-Q BIDDIAB 10 Days 01/09/1801/16 Rx units Ibuprofen [Motrin 600 MG tab] 600 mg PO Q8H PRN #30 tablet 01/16/18 Unknown Rx Allergies Allergy/AdvReac Type Severity Reaction Status Date / Time oxycodone HCl [From Percocet] Allergy Angioedema Verified 07/10/16 17:11 Penicillins Allergy Angioedema Verified 07/10/16 17:11 prednisone Allergy Unknown Verified 07/10/16 17:11 bupropion HCl AdvReac Unknown Verified 07/10/16 17:11 [From Wellbutrin] divalproex sodium AdvReac Unknown Verified 07/10/16 17:11 [From Depakote] fluoxetine HCl [From Prozac] AdvReac Unknown Verified 07/10/16 17:11 lithium AdvReac Unknown Verified 07/10/16 17:11 ED Review of Systems ROS: Stated complaint: RIGHT KNEE PAIN Other details as noted in HPI Constitutional: denies: chills, fever Eyes: denies: eye pain, eye discharge, vision change ENT: denies: ear pain, throat pain Respiratory: denies: cough, shortness of breath, wheezing Cardiovascular: denies: chest pain, palpitations Endocrine: no symptoms reported Gastrointestinal: denies: abdominal pain, nausea, diarrhea Genitourinary: denies: urgency, dysuria, discharge Musculoskeletal: denies: back pain, joint swelling, arthralgia Skin: denies: rash, lesions Neurological: denies: headache, weakness, paresthesias Psychiatric: denies: anxiety, depression Hematological/Lymphatic: as per HPI ED Past Medical Hx - Past Medical History Hx Hypertension: Yes Hx CVA: No Hx Heart Attack/AMI: No Hx Congestive Heart Failure: Yes Hx Diabetes: Yes Hx Deep Vein Thrombosis: No Hx Pulmonary Embolism: No Hx GERD: No Hx Liver Disease: No Hx Renal Disease: No Hx Sickle Cell Disease: No Hx Arthritis: Yes Hx Seizures: No Hx Kidney Stones: No Hx Psychiatric Treatment: Yes (Bipolar, Schziophrenia) Hx Asthma: Yes Hx COPD: Yes Hx Tuberculosis: No Hx HIV: No Additional medical history: Bronchitis, Home O2 2 liters - Surgical History Hx Coronary Stent: No Hx Open Heart Surgery: No Hx Pacemaker: No Hx Internal Defibrillator: No Hx Cholecystectomy: No Hx Appendectomy: No Hx Breast Surgery: No Additional Surgical History: spinal fusion, left hip - Social History Smoking Status: Never Smoker Substance Use Type: None - Medications Home Medications: Home Medications Medication Instructions Recorded Confirmed Last Taken Type ALBUTEROL NEB's [Proventil 0.083% 5 mg IH Q4H PRN nebu 05/08/17 01/05/18 Rx NEBS] Escitalopram Oxalate [Lexapro] 20 mg PO DAILY 11/05/17 01/05/18 01/16/18 History Lisinopril [Zestril] 20 mg PO DAILY 11/05/17 01/16/18 1 Day Ago History ~01/15/18 traZODone [Desyrel] 100 mg PO QPM 11/05/17 01/16/18 1 Day Ago History ~01/15/18 LORazepam [Ativan] 1 mg PO BID MDD 1 mg 11/06/17 01/16/18 1 Day Ago History ~01/15/18 Albuterol Sulfate [Proair 90 mcg IH Q4HR PRN #2 aer.pow.ba 12/22/17 01/05/18 Rx Respiclick] Ipratropium [place] [Atrovent Hfa] 12.9 gm IH Q4HR #2 hfa.aer.ad 12/22/17 1 Day Ago Rx ~01/15/18 Dilaudid 4 mg PO Q4H PRN 01/05/18 01/16/18 01/04/18 History Morphine 15 mg PO BID PRN 01/05/18 01/16/18 1 Day Ago History ~01/15/18 ALBUTEROL Inhaler (OR & NICU) 2 puff IH QID PRN #1 inhalation 01/09/18 Rx [ProAir HFA Inhaler] Insulin NPH/Regular [NovoLIN 70/30] 26 unit SUB-Q BIDDIAB 10 Days 01/09/1801/1601/16/18 Rx units Ibuprofen [Motrin 600 MG tab] 600 mg PO Q8H PRN #30 tablet 01/16/18 Unknown Rx ED Physical Exam - General Limitations: Physical Limitation General appearance: alert, in no apparent distress - Head Head exam: Present: atraumatic, normocephalic - Eye Eye exam: Present: normal appearance - ENT ENT exam: Present: mucous membranes moist - Neck Neck exam: Present: normal inspection - Respiratory Respiratory exam: Present: normal lung sounds bilaterally. Absent: respiratory distress - Cardiovascular Cardiovascular Exam: Present: regular rate, normal rhythm. Absent: systolic murmur, diastolic murmur, rubs, gallop - GI/Abdominal GI/Abdominal exam: Present: soft, normal bowel sounds - Rectal Rectal exam: Present: deferred - Extremities Exam Extremities exam: Present: full ROM, tenderness (right anteriro knee ), normal capillary refill. Absent: pedal edema, joint swelling, calf tenderness - Expanded Lower Extremity Exam Right Knee exam: Present: tenderness, pain w/ pronation/supination, full knee extension. Absent: swelling, abrasion, laceration, ecchymosis, deformity, crepidus, dislocation, erythema, effusion, posterior draw sign, pain/laxity with valgus, pain/laxity with varus Lower Leg exam: Present: normal inspection, full ROM Ankle exam: Present: normal inspection, full ROM, tenderness, swelling. Absent : abrasion, laceration, ecchymosis, deformity, crepidus, dislocation, erythema, anterior draw sign Foot/Toe exam: Present: normal inspection Neuro vascular tendon exam: Present: no vascular compromise. Absent: pulse deficit, abnormal cap refill, motor deficit, sensory deficit, tendon deficit, extremity cold to touch, pallor, abnormal 2-point discrimination, decreased fine /light touch, foot drop, peroneal nerve deficit, significant pain with passive ROM of distal joint Gait: Positive: observed and limited by pain ED Course Vital Signs 01/21/18 20:27 Temperature 99 F Pulse Rate 77 Respiratory 16 Rate Blood Pressure 127/65 O2 Sat by Pulse 91 Oximetry ED Lower Extremity MDM - Medical Decision Making Patient will follow up with orthopedic surgery Dr. Jo will call tomorrow to confirm appointment patient has NSAIDs and muscle relaxants as prescribed last week for pain will take same until follow-up appointment with Dr. Jo however patient will return to ED should symptoms worsen or new fall or injury Critical care attestation.: If time is entered above; I have spent that time in minutes in the direct care of this critically ill patient, excluding procedure time. ED Disposition Clinical Impression: Musculoskeletal pain of right lower extremity Disposition: DC-01 TO HOME OR SELFCARE Is pt being admited?: No Does the pt Need Aspirin: No Condition: Good Instructions: Arthralgia (ED) Referrals: GORDO JO MD [Staff Physician] - 3-5 Days Forms: Work/School Release Form(ED) Time of Disposition: 23:07
[2018-01-21 23:25] VITALS: BP 130/66
== END 2018-01-21 23:24 | disposition home or self-care (01) ==
LOC: ED 19:52
DX: M25.561 Pain in right knee (principal); I10 Essential (primary) hypertension; I50.9 Heart failure, unspecified; E11.9 Type 2 diabetes mellitus without complications; M19.90 Unspecified osteoarthritis, unspecified site; F31.9 Bipolar disorder, unspecified; F20.9 Schizophrenia, unspecified; J44.9 Chronic obstructive pulmonary disease, unspecified; Z88.0 Allergy status to penicillin; Z88.8 Allergy status to other drugs, medicaments and biological substances
CPT/HCPCS: 96372; 99282; J1885

== ENCOUNTER 2018-03-11 18:50 | Inpatient (IN) | payer MEDICARE ==
[2018-03-11 20:20] LABS: Basophils # (Auto) 0.1 K/mm3 (0.0-0.1); Basophils % (Auto) 0.9 % (0.0-1.8); Eosinophils # (Auto) 0.3 K/mm3 (0.0-0.4); Eosinophils % (Auto) 4.1 % (0.0-4.3); Hematocrit 41.3 % (30.3-42.9); Hemoglobin 13.6 gm/dl (10.1-14.3); Lymphocytes # (Auto) 1.8 K/mm3 (1.2-5.4); Lymphocytes % (Auto) 26.9 % (13.4-35.0); Mean Corpuscular HGB Conc 33 % (30-34); Mean Corpuscular Hemoglobin 30 pg (28-32); Mean Corpuscular Volume 90 fl (79-97); Monocytes # (Auto) 0.4 K/mm3 (0.0-0.8); Monocytes % (Auto) 6.4 % (0.0-7.3); Platelet Count 251 K/mm3 (140-440); Red Blood Count 4.58 M/mm3 (3.65-5.03); Red Cell Distribution Width 14.2 % (13.2-15.2)
[2018-03-11 20:40] LABS: BUN/Creatinine Ratio 13; Blood Urea Nitrogen 8 mg/dL (7-17); Calcium 9.7 mg/dL (8.4-10.2); Hemolysis Index 11
--- NOTE | 2018-03-11 21:13 | XRay Report ---
FINAL REPORT EXAM: XR CHEST ROUTINE 2V HISTORY: Shortness of breath TECHNIQUE: Frontal and lateral views of the chest Comparison: Chest x-ray dated January 04, 2018 FINDINGS: Visualization detail is somewhat limited by artifact created by large body habitus. There is no evidence of focal infiltrate, pneumothorax or pleural fluid collection. The cardiac silhouette appears to be upper limits of normal size to mildly enlarged similar in appearance to the previous study. The thoracic aorta and bony structures are unremarkable. IMPRESSION: 1. No evidence of an acute pulmonary process. No significant change since previous study dated January 04, 2018. If further imaging is required, CT chest may be helpful.
[2018-03-11] MEDS ORDERED: PROVENTIL IH ONE (22:24)
[2018-03-11] MEDS ORDERED: ATROVENT IH ONE (22:24)
[2018-03-11] MEDS ORDERED: SUBLIMAZE IV ONE (22:25)
[2018-03-11] MEDS ORDERED: ZOFRAN IV ONE (22:25)
[2018-03-11] MEDS ORDERED: MAGNESIUM SULFATE 2GM/50ML 2 GM/50 ML BAG IV ONE (22:26)
[2018-03-11] MEDS ORDERED: SOLU-Medrol IV ONE (22:26)
--- NOTE | 2018-03-11 22:33 | Emergency Department Report ---
HPI - General Chief Complaint: Dyspnea/Respdistress Time Seen by Provider: 03/11/18 22:11 - HPI HPI: Room 5 The patient is a 52-year-old female presenting with chief complaint of shortness of breath chest pain. The patient states for one week she has had constant substernal chest pain associated with shortness of breath, nausea and diaphoresis. Patient states she's also had a cough productive of yellow sputum. Patient admits to subjective fever and chills in addition to sneezing. The patient states she is also lower extremity edema. Patient states she's been out of her Lasix for approximately 2-3 weeks Location: Chest, lungs, see above Duration: One week Quality: Pain Severity: Greater than 10/10 Modifying factors: [see above] Context: [see above] Mode of transportation: [not driving] ED Past Medical Hx - Past Medical History Hx Hypertension: Yes Hx Congestive Heart Failure: Yes Hx Diabetes: Yes Hx Arthritis: Yes Hx Psychiatric Treatment: Yes (Bipolar, Schziophrenia) Hx Asthma: Yes Hx COPD: Yes (home O2 2 L nasal cannula) Additional medical history: Bronchitis, Home O2 2 liters, Morbid Obesity, - Surgical History Additional Surgical History: spinal fusion, left hip, Hysterectomy - Family History Family history: no significant - Social History Smoking Status: Current Some Day Smoker (approximately 1 cigarette daily) Substance Use Type: Alcohol (occasional) - Medications Home Medications: Home Medications Medication Instructions Recorded Confirmed Last Taken Type ALBUTEROL NEB's [Proventil 0.083% 5 mg IH Q4H PRN nebu 05/08/17 01/05/18 Rx NEBS] Escitalopram Oxalate [Lexapro] 20 mg PO DAILY 11/05/17 01/05/18 01/16/18 History Lisinopril [Zestril] 20 mg PO DAILY 11/05/17 01/16/18 1 Day Ago History ~01/15/18 traZODone [Desyrel] 100 mg PO QPM 11/05/17 01/16/18 1 Day Ago History ~01/15/18 LORazepam [Ativan] 1 mg PO BID MDD 1 mg 11/06/17 01/16/18 1 Day Ago History ~01/15/18 Albuterol Sulfate [Proair 90 mcg IH Q4HR PRN #2 aer.pow.ba 12/22/17 01/05/18 Rx Respiclick] Ipratropium [place] [Atrovent Hfa] 12.9 gm IH Q4HR #2 hfa.aer.ad 12/22/17 1 Day Ago Rx ~01/15/18 Dilaudid 4 mg PO Q4H PRN 01/05/18 01/16/18 01/04/18 History Morphine 15 mg PO BID PRN 01/05/18 01/16/18 1 Day Ago History ~01/15/18 ALBUTEROL Inhaler (OR & NICU) 2 puff IH QID PRN #1 inhalation 01/09/18 Rx [ProAir HFA Inhaler] Insulin NPH/Regular [NovoLIN 70/30] 26 unit SUB-Q BIDDIAB 10 Days 01/09/1801/1601/16/18 Rx units Ibuprofen [Motrin 600 MG tab] 600 mg PO Q8H PRN #30 tablet 01/16/18 Unknown Rx ED Review of Systems ROS: Stated complaint: ANN/WHEEZING Other details as noted in HPI Constitutional: fever (subjective) Eyes: denies: eye pain ENT: denies: throat pain Respiratory: cough, shortness of breath, wheezing Cardiovascular: chest pain Endocrine: no symptoms reported Gastrointestinal: nausea Genitourinary: denies: dysuria Musculoskeletal: myalgia Neurological: denies: headache Hematological/Lymphatic: other (lower extremity edema) Physical Exam - Physical Exam Vital Signs: Vital Signs 03/11/18 03/11/18 19:47 22:25 Temperature 98.8 F 97.8 F Pulse Rate 84 86 Respiratory 16 25 H Rate Blood Pressure 130/81 Blood Pressure 156/81 [Left] O2 Sat by Pulse 98 94 Oximetry Physical Exam: GENERAL: The patient is well-developed well-nourished female sitting on stretcher exhibiting labored respirations unable to speak in complete sentences. [] HEENT: Normocephalic. Atraumatic. Extraocular motions are intact. Patient has moist mucous membranes. NECK: Supple. Trachea midline CHEST/LUNGS: Diffuse wheezing and accessory muscle use HEART/CARDIOVASCULAR: Regular. There is no tachycardia. There is no gallop rub or murmur. ABDOMEN: Abdomen is soft, nontender. Patient has normal bowel sounds. There is no abdominal distention. SKIN: There is no rash. There is 2+ bilateral lower extremity pitting edema. There is no diaphoresis. NEURO: The patient is awake, alert, and oriented. The patient is cooperative. The patient has normal speech MUSCULOSKELETAL: There is no evidence of acute injury. ED Course Vital Signs 03/11/18 03/11/18 19:47 22:25 Temperature 98.8 F 97.8 F Pulse Rate 84 86 Respiratory 16 25 H Rate Blood Pressure 130/81 Blood Pressure 156/81 [Left] O2 Sat by Pulse 98 94 Oximetry ED Medical Decision Making - Lab Data Result diagrams: 03/11/18 20:04 03/11/18 20:04 Laboratory Tests 03/11/18 03/11/18 20:04 20:04 WBC 6.5 RBC 4.58 Hgb 13.6 Hct 41.3 MCV 90 MCH 30 MCHC 33 RDW 14.2 Plt Count 251 Lymph % (Auto) 26.9 [place] % (Auto) 6.4 Eos % (Auto) 4.1 Baso % (Auto) 0.9 Lymph # 1.8 [place] # 0.4 Eos # 0.3 Baso # 0.1 Seg Neutrophils % 61.7 Seg Neutrophils # 4.0 Sodium 141 Potassium 4.1 Chloride 100.6 Carbon Dioxide 30 Anion Gap 15 BUN 8 Creatinine 0.6 L Estimated GFR > 60 BUN/Creatinine Ratio 13 Glucose 191 H Calcium 9.7 Troponin T < 0.010 - EKG Data -: EKG Interpreted by Me EKG shows normal: sinus rhythm Rate: normal - EKG Data When compared to previous EKG there are: previous EKG unavailable Interpretation: other (no ischemic changes seen) - Radiology Data Radiology results: report reviewed (chest x-ray), image reviewed (chest x-ray) interpreted by me: Chest x-ray-no focal infiltrates, no pneumothorax [facility] [address] [place] [address] XRay Report Signed Patient: ERIC WELSH MR#: [id number] : 1965 Acct:[id number] Age/Sex: 52 / F ADM Date: 03/11/18 Loc: ED Attending Dr: Ordering Physician: ED DOC, Date of Service: 03/11/18 Procedure(s): XR chest routine 2V Accession Number(s): [id number] cc: ED DOC, Fluoro Time In Minutes: FINAL REPORT EXAM: XR CHEST ROUTINE 2V HISTORY: Shortness of breath TECHNIQUE: Frontal and lateral views of the chest Comparison: Chest x-ray dated January 04, 2018 FINDINGS: Visualization detail is somewhat limited by artifact created by large body habitus. There is no evidence of focal infiltrate, pneumothorax or pleural fluid collection. The cardiac silhouette appears to be upper limits of normal size to mildly enlarged similar in appearance to the previous study. The thoracic aorta and bony structures are unremarkable. IMPRESSION: 1. No evidence of an acute pulmonary process. No significant change since previous study dated January 04, 2018. If further imaging is required, CT chest may be helpful. Transcribed By: ED Dictated By: TONO GRAZA MD Electronically Authenticated By: TONO GARZA MD Signed Date/Time: 03/11/182110 DD/ 10 TD/TT: 03/11/182110 - Differential Diagnosis COPD exacerbation, CHF exacerbation, ACS, pericarditis, GERD Critical care attestation.: If time is entered above; I have spent that time in minutes in the direct care of this critically ill patient, excluding procedure time. ED Disposition Clinical Impression: COPD exacerbation, Chest pain, CHF exacerbation Disposition: OP ADMIT IP TO THIS HOSP Is pt being admited?: Yes Does the pt Need Aspirin: Yes Condition: Fair Instructions: Chronic Bronchitis (ED), Chest Pain (ED) Referrals: PRIMARY CARE, [Primary Care Provider] - 3-5 Days Time of Disposition: 22:35 (hospitalist paged (Dr. Sophie Martinez))
[2018-03-11] MEDS ORDERED: ASPIRIN PO ONE (22:36)
[2018-03-11] MEDS ORDERED: LASIX IV ONE (22:46)
[2018-03-11] MEDS ORDERED: SODIUM CHLORIDE FLUSH SYRINGE 10 ML IV PRN (23:13)
[2018-03-11] MEDS ORDERED: D50W (25GM) Syringe IV PRN (23:13)
[2018-03-11] MEDS ORDERED: ZOFRAN IV PRN (23:13)
--- NOTE | 2018-03-11 23:25 | History and Physical Report ---
History of Present Illness Date of examination: 03/11/18 History of present illness: 52-year-old woman with a history of hypertension, diabetes, COPD, CHF, bipolar, schizophrenia, chronic pain comes emergency room with complaints of shortness of breath started today. Also complaining of cough productive of yellow, wheezing anterior chest feeling tight. Also complaining of PND, orthopnea, lower extremity edema, she's been out of her Lasix for one month Review of systems Constitutional: no weight loss, chills, fever Ears, eyes, nose, mouth and throat: no nasal congestion, no nasal discharge, no sinus pressure, no vision change, no red eye. Neck: No neck pain or rigidity. Cardiovascular: no chest pain, palpitations Respiratory: + cough, shortness of breath Gastrointestinal: no abdominal pain hematochezia Genitourinary : no frequency , no hematuria Musculoskeletal: no joint swelling or muscle ache Integumentary: no rash, no pruritis Neurological: no parathesias, no numbness, no focal weakness Endocrine: no cold or heat intolerance, no polyuria or polydipsia Hematologic/Lymphatic: no easy bruising, no easy bleeding, no gland swelling Allergic/Immunologic: no urticaria, no angioedema. PAST MEDICAL HISTORY: hypertension, diabetes, COPD, CHF, bipolar, schizophrenia , chronic pain PAST SURGICAL HISTORY: Hysterectomy, 2, spinal fusion, shoulder SOCIAL HISTORY: Smoke 1 pack a day, social alcohol no drugs FAMILY HISTORY: Hypertension Medications and Allergies Allergies Allergy/AdvReac Type Severity Reaction Status Date / Time oxycodone HCl [From Percocet] Allergy Angioedema Verified 07/10/16 17:11 Penicillins Allergy Angioedema Verified 07/10/16 17:11 prednisone Allergy Unknown Verified 07/10/16 17:11 bupropion HCl AdvReac Unknown Verified 07/10/16 17:11 [From Wellbutrin] divalproex sodium AdvReac Unknown Verified 07/10/16 17:11 [From Depakote] fluoxetine HCl [From Prozac] AdvReac Unknown Verified 07/10/16 17:11 lithium AdvReac Unknown Verified 07/10/16 17:11 Home Medications Medication Instructions Recorded Confirmed Last Taken Type ALBUTEROL NEB's [Proventil 0.083% 5 mg IH Q4H PRN nebu 05/08/17 03/11/18 Rx NEBS] Escitalopram Oxalate [Lexapro] 20 mg PO DAILY 11/05/17 03/11/18 01/16/18 History Lisinopril [Zestril] 20 mg PO DAILY 11/05/17 03/11/18 1 Day Ago History ~01/15/18 traZODone [Desyrel] 100 mg PO QPM 11/05/17 03/11/18 1 Day Ago History ~01/15/18 LORazepam [Ativan] 1 mg PO BID MDD 1 mg 11/06/17 03/11/18 1 Day Ago History ~01/15/18 Albuterol Sulfate [Proair 90 mcg IH Q4HR PRN #2 aer.pow.ba 12/22/17 03/11/18 Rx Respiclick] Ipratropium [place] [Atrovent Hfa] 12.9 gm IH Q4HR #2 hfa.aer.ad 12/22/17 1 Day Ago Rx ~01/15/18 Dilaudid 4 mg PO Q4H PRN 01/05/18 03/11/18 01/04/18 History Morphine 15 mg PO BID PRN 01/05/18 03/11/18 1 Day Ago History ~01/15/18 ALBUTEROL Inhaler (OR & NICU) 2 puff IH QID PRN #1 inhalation 01/09/18 03/11/18 01/16/18 Rx [ProAir HFA Inhaler] Insulin NPH/Regular [NovoLIN 70/30] 26 unit SUB-Q BIDDIAB 10 Days 01/09/1803/1101/16/18 Rx units Ibuprofen [Motrin 600 MG tab] 600 mg PO Q8H PRN #30 tablet 01/16/18 03/11/18 Unknown Rx Active Meds: Active Medications Acetaminophen (Tylenol) 650 mg PO Q4H PRN PRN Reason: Pain MILD(1-3)/Fever >100.5/KHAN Albuterol/Ipratropium (Duoneb *Not For Prn Use*) 1 ampul IH Q6HRT VIC Aspirin (Baby Aspirin) 81 mg PO QDAY VIC Carvedilol (Coreg) 3.125 mg PO BID VIC Dextrose (D50w (25gm) Syringe) 50 ml IV PRN PRN PRN Reason: Hypoglycemia Enoxaparin Sodium (Lovenox) 30 mg SUB-Q QDAY [facility] Furosemide (Lasix) 40 mg IV BID@0600,1800 [facility] Insulin Human Isoph/Insulin Regular (Humulin 70/30) 26 unit SUB-Q BIDDIAB VIC Insulin Human Lispro (Humalog) 0 unit SUB-Q ACHS VIC; Protocol Lisinopril (Zestril) 20 mg PO DAILY VIC Lorazepam (Ativan) 1 mg PO BID VIC Methylprednisolone Sodium Succinate (Solu-Medrol) 125 mg IV Q6H VIC Miscellaneous Medication (Escitalopram Oxalate [Lexapro]) 20 mg PO DAILY VIC Ondansetron HCl (Zofran) 4 mg IV Q4H PRN PRN Reason: Nausea And Vomiting Sodium Chloride (Sodium Chloride Flush Syringe 10 Ml) 10 ml IV BID VIC Sodium Chloride (Sodium Chloride Flush Syringe 10 Ml) 10 ml IV PRN PRN PRN Reason: LINE FLUSH Exam - Physical Exam Narrative exam: Gen. appearance: Patient lying in bed, no apparent distress HEENT: Normocephalic, atraumatic, pupils equally round and reactive to light, extraocular movement intact, and no sclericterus,. No JVD or thyromegaly or nodule,neck supple, no carotid bruit ,mucous membranes moist, no exudate or erythema Heart: S1, S2, regular rate and rhythm Lungs: Wheezing, crackles bilaterally, breathing comfortable Abdomen: Positive bowel sounds, nontender, nondistended, no organomegaly Extremity: 2+edema, no cyanosis, clubbing Skin: No rash, nodules, warm, dry Neuro: Oriented 3, cranial nerves II-12 intact, speech is fluent, motor and sensory intact - Constitutional Vitals: Temp Pulse Resp BP Pulse Ox 97.8 F 82 22 156/81 94 03/11/18 22:25 03/11/18 22:30 03/11/18 22:30 03/11/18 22:25 03/11/18 22:25 Results - Labs CBC & Chem 7: 03/11/18 20:04 03/11/18 20:04 Labs: Abnormal lab results 03/11/18 Range/Units 20:04 Creatinine 0.6 L (0.7-1.2) mg/dL Glucose 191 H (65-100) mg/dL - Imaging and Cardiology EKG: image reviewed Chest x-ray: image reviewed Assessment and Plan Assessment CHF, acute on chronic, diastolic dysfunction COPD exacerbation UTI Hypertension Diabetes of 2 Bipolar Schizophrenia Chronic pain Plan Admit to medicine Diurese it IV Lasix Monitor I's and O's, daily weights Start beta emerson, SANDER inhibitor, aspirin, check cardiac enzymes, echo, consult cardiology Start nebulizer treatment, IV Levaquin, hold IV steroids, patient allergic check fingersticks initiate insulin sliding scale Continue appropriate outpatient medications, start DVT prophylaxis
[2018-03-11] MEDS ORDERED: SOLU-Medrol IV SCH (23:45)
[2018-03-12 00:06] LABS: Creatine Kinase MB 1.6 ng/mL (0.0-4.0)
[2018-03-12] MEDS: DUONEB *Not for PRN Use IH SCH ×5 (01:30→19:11)
[2018-03-12] MEDS ORDERED: PROVENTIL IH PRN (04:49)
[2018-03-12 05:07] LABS: Hematocrit 43.8 % (30.3-42.9); Hemoglobin 14.3 gm/dl (10.1-14.3); Mean Corpuscular HGB Conc 33 % (30-34); Mean Corpuscular Hemoglobin 29 pg (28-32); Mean Corpuscular Volume 90 fl (79-97); Platelet Count 295 K/mm3 (140-440); Red Blood Count 4.87 M/mm3 (3.65-5.03); Red Cell Distribution Width 14.3 % (13.2-15.2)
[2018-03-12 05:36] LABS: Creatine Kinase MB 1.7 ng/mL (0.0-4.0)
[2018-03-12 05:48] LABS: BUN/Creatinine Ratio 14; Blood Urea Nitrogen 11 mg/dL (7-17); Calcium 9.9 mg/dL (8.4-10.2); Hemolysis Index 8
[2018-03-12] MEDS: LASIX IV SCH ×2 (05:50→18:32)
[2018-03-12 06:12] LABS: Band Neutrophils # (Manual) 0.4 K/mm3; Basophils % (Manual) 0 % (0.0-1.8); Eosinophils % (Manual) 0 % (0.0-4.3); Platelet Estimate Consistent w Auto; Stomatocytes 2+; Total Cells Counted 100
[2018-03-12] MEDS: HumaLOG SUB-Q SCH ×4 (09:02→21:37)
--- NOTE | 2018-03-12 09:50 | Progress Note ---
Assessment and Plan Assessment and plan: Acute on chronic hypoxemic respiratory failure. Etiology is multifactorial secondary to COPD exacerbation, OHS/DIMITRIOS. Continue O2. Supportive care to maintain sats greater than 92%. Acute COPD exacerbation. Continue nebulizer treatments, start systemic steroids and antibiotics, Cont. O2. Acute bronchitis. We will start IV antibiotic. Chronic diastolic heart failure. Compensated. Patient reports diagnosis April of last year at [facility]. No evidence or records indicating recent echocardiogram. Check echocardiogram. Stress test done 06/13/16 at [facility]: fixed inferior defect with slight reversibility in the setting of significant breast and diaphragm attenuation, EF 74%. Diabetes mellitus type 2, uncontrolled. Last hemoglobin A1c 8.7. Continue Accu -Cheks, ADA and sliding scale insulin. Morbid obesity. BMI 55.7. Reinforced diet modifications and exercise. Right knee pain. Etiology likely secondary to osteoarthritis. Plain films from December 2017 were negative. History Interval history: Patient complains of cough of yellow sputum production. Patient also complains of right knee pain from a fall suffered several weeks ago. Hospitalist Physical - Constitutional Vitals: Temp Pulse Resp BP Pulse Ox 97.6 F 89 20 165/92 93 03/12/18 07:58 03/12/18 08:29 03/12/18 08:29 03/12/18 07:58 03/12/18 08:27 General appearance: Present: no acute distress, well-nourished - EENT Eyes: Present: PERRL, EOM intact ENT: hearing intact, clear oral mucosa, dentition normal - Neck Neck: Present: supple, normal ROM - Respiratory Respiratory effort: normal Respiratory: bilateral: diminished, rhonchi, wheezing - Cardiovascular Rhythm: regular Heart Sounds: Present: S1 & S2. Absent: gallop, rub - Extremities Extremities: no ischemia, No edema, Full ROM - Abdominal General gastrointestinal: soft, non-tender, non-distended, normal bowel sounds - Integumentary Integumentary: Present: clear, warm, dry - Neurologic Neurologic: CNII-XII intact, moves all extremities Results - Labs CBC & Chem 7: 03/12/18 04:14 03/12/18 04:14 Labs: Laboratory Last Values WBC 8.3 K/mm3 (4.5-11.0) 03/12/18 04:14 RBC 4.87 M/mm3 (3.65-5.03) 03/12/18 04:14 Hgb 14.3 gm/dl (10.1-14.3) 03/12/18 04:14 Hct 43.8 % (30.3-42.9) H 03/12/18 04:14 MCV 90 fl (79-97) 03/12/18 04:14 MCH 29 pg (28-32) 03/12/18 04:14 MCHC 33 % (30-34) 03/12/18 04:14 RDW 14.3 % (13.2-15.2) 03/12/18 04:14 Plt Count 295 K/mm3 (140-440) 03/12/18 04:14 Lymph % (Auto) 26.9 % (13.4-35.0) 03/11/18 20:04 [place] % (Auto) 6.4 % (0.0-7.3) 03/11/18 20:04 Eos % (Auto) 4.1 % (0.0-4.3) 03/11/18 20:04 Baso % (Auto) 0.9 % (0.0-1.8) 03/11/18 20:04 Lymph # 1.8 K/mm3 (1.2-5.4) 03/11/18 20:04 [place] # 0.4 K/mm3 (0.0-0.8) 03/11/18 20:04 Eos # 0.3 K/mm3 (0.0-0.4) 03/11/18 20:04 Baso # 0.1 K/mm3 (0.0-0.1) 03/11/18 20:04 Add Manual Diff Complete 03/12/18 04:14 Total Counted 100 03/12/18 04:14 Seg Neutrophils % 61.7 % (40.0-70.0) 03/11/18 20:04 Seg Neuts % (Manual) 91.0 % (40.0-70.0) H 03/12/18 04:14 Band Neutrophils % 5.0 % 03/12/18 04:14 Lymphocytes % (Manual) 3.0 % (13.4-35.0) L 03/12/18 04:14 Reactive Lymphs % (Man) 0 % 03/12/18 04:14 Monocytes % (Manual) 1.0 % (0.0-7.3) 03/12/18 04:14 Eosinophils % (Manual) 0 % (0.0-4.3) 03/12/18 04:14 Basophils % (Manual) 0 % (0.0-1.8) 03/12/18 04:14 Metamyelocytes % 0 % 03/12/18 04:14 Myelocytes % 0 % 03/12/18 04:14 Promyelocytes % 0 % 03/12/18 04:14 Blast Cells % 0 % 03/12/18 04:14 Nucleated RBC % Not Reportable 03/12/18 04:14 Seg Neutrophils # 4.0 K/mm3 (1.8-7.7) 03/11/18 20:04 Seg Neutrophils # Man 7.6 K/mm3 (1.8-7.7) 03/12/18 04:14 Band Neutrophils # 0.4 K/mm3 03/12/18 04:14 Lymphocytes # (Manual) 0.2 K/mm3 (1.2-5.4) L 03/12/18 04:14 Abs React Lymphs (Man) 0.0 K/mm3 03/12/18 04:14 Monocytes # (Manual) 0.1 K/mm3 (0.0-0.8) 03/12/18 04:14 Eosinophils # (Manual) 0.0 K/mm3 (0.0-0.4) 03/12/18 04:14 Basophils # (Manual) 0.0 K/mm3 (0.0-0.1) 03/12/18 04:14 Metamyelocytes # 0.0 K/mm3 03/12/18 04:14 Myelocytes # 0.0 K/mm3 03/12/18 04:14 Promyelocytes # 0.0 K/mm3 03/12/18 04:14 Blast Cells # 0.0 K/mm3 03/12/18 04:14 WBC Morphology Not Reportable 03/12/18 04:14 Hypersegmented Neuts Not Reportable 03/12/18 04:14 Hyposegmented Neuts Not Reportable 03/12/18 04:14 Hypogranular Neuts Not Reportable 03/12/18 04:14 Smudge Cells Not Reportable 03/12/18 04:14 Toxic Granulation Not Reportable 03/12/18 04:14 Toxic Vacuolation Not Reportable 03/12/18 04:14 Dohle Bodies Not Reportable 03/12/18 04:14 Pelger-Huet Anomaly Not Reportable 03/12/18 04:14 Chantal Rods Not Reportable 03/12/18 04:14 Platelet Estimate Consistent w auto 03/12/18 04:14 Clumped Platelets Not Reportable 03/12/18 04:14 Plt Clumps, EDTA Not Reportable 03/12/18 04:14 Large Platelets Not Reportable 03/12/18 04:14 Giant Platelets Not Reportable 03/12/18 04:14 Platelet Satelliting Not Reportable 03/12/18 04:14 Plt Morphology Comment Not Reportable 03/12/18 04:14 RBC Morphology Not Reportable 03/12/18 04:14 Dimorphic RBCs Not Reportable 03/12/18 04:14 Polychromasia Not Reportable 03/12/18 04:14 Hypochromasia Not Reportable 03/12/18 04:14 Poikilocytosis Not Reportable 03/12/18 04:14 Anisocytosis Not Reportable 03/12/18 04:14 Microcytosis Not Reportable 03/12/18 04:14 Macrocytosis Not Reportable 03/12/18 04:14 Spherocytes Not Reportable 03/12/18 04:14 Pappenheimer Bodies Not Reportable 03/12/18 04:14 Sickle Cells Not Reportable 03/12/18 04:14 Target Cells Not Reportable 03/12/18 04:14 Tear Drop Cells Not Reportable 03/12/18 04:14 Ovalocytes Not Reportable 03/12/18 04:14 Stomatocytes 2+ 03/12/18 04:14 Helmet Cells Not Reportable 03/12/18 04:14 [place] Bodies Not Reportable 03/12/18 04:14 [place] Rings Not Reportable 03/12/18 04:14 Ray Cells Not Reportable 03/12/18 04:14 Bite Cells Not Reportable 03/12/18 04:14 Crenated Cell Not Reportable 03/12/18 04:14 Elliptocytes Not Reportable 03/12/18 04:14 Acanthocytes (Spur) Not Reportable 03/12/18 04:14 Rouleaux Not Reportable 03/12/18 04:14 Hemoglobin C Crystals Not Reportable 03/12/18 04:14 Schistocytes Not Reportable 03/12/18 04:14 Malaria parasites Not Reportable 03/12/18 04:14 Heber Bodies Not Reportable 03/12/18 04:14 Hem Pathologist Commnt No 03/12/18 04:14 Sodium 138 mmol/L (137-145) 03/12/18 04:14 Potassium 4.3 mmol/L (3.6-5.0) 03/12/18 04:14 Chloride 95.1 mmol/L (98-107) L 03/12/18 04:14 Carbon Dioxide 32 mmol/L (22-30) H 03/12/18 04:14 Anion Gap 15 mmol/L 03/12/18 04:14 BUN 11 mg/dL (7-17) 03/12/18 04:14 Creatinine 0.8 mg/dL (0.7-1.2) 03/12/18 04:14 Estimated GFR > 60 ml/min 03/12/18 04:14 BUN/Creatinine Ratio 14 % 03/12/18 04:14 Glucose 370 mg/dL (65-100) H 03/12/18 04:14 POC Glucose 332 (70-105) H 03/12/18 04:29 Calcium 9.9 mg/dL (8.4-10.2) 03/12/18 04:14 Total Creatine Kinase 53 units/L (30-135) 03/12/18 04:14 CK-MB (CK-2) 1.7 ng/mL (0.0-4.0) 03/12/18 04:14 CK-MB (CK-2) Rel Index 3.2 (0-4) 03/12/18 04:14 Troponin T < 0.010 ng/mL (0.00-0.029) 03/12/18 04:14
[2018-03-12] MEDS: LOVENOX SUB-Q SCH (09:59)
[2018-03-12] MEDS: BABY ASPIRIN PO SCH (10:00)
[2018-03-12] MEDS: COREG PO SCH ×2 (10:00→21:22)
[2018-03-12] MEDS: ZESTRIL PO SCH (10:00)
[2018-03-12] MEDS: LEXAPRO PO SCH (10:00)
[2018-03-12] MEDS: ATIVAN PO SCH ×2 (10:00→21:22)
[2018-03-12] MEDS: SODIUM CHLORIDE FLUSH SYRINGE 10 ML IV SCH ×2 (10:01→21:38)
[2018-03-12] MEDS: TYLENOL PO PRN (10:07)
[2018-03-12] MEDS ORDERED: AFLURIA QUAD 2018-2019 SYRINGE IM ONE (12:00)
[2018-03-12] MEDS ORDERED: PNEUMOVAX 23 IM ONE (12:00)
[2018-03-12] MEDS: DOXYCYCLINE HYCLATE 100 MG in NACL 0.9% 250ML 250 ML IV SCH ×2 (12:53→21:20)
[2018-03-12] MEDS: SOLU-Medrol IV SCH ×2 (13:20→21:23)
[2018-03-12] MEDS: ROBITUSSIN PO PRN ×2 (17:11→21:23)
[2018-03-13] MEDS: DUONEB *Not for PRN Use IH SCH ×4 (02:04→19:57)
[2018-03-13 04:42] LABS: Basophils # (Auto) 0.1 K/mm3 (0.0-0.1); Basophils % (Auto) 0.6 % (0.0-1.8); Eosinophils % (Auto) 0.2 % (0.0-4.3); Hematocrit 42.7 % (30.3-42.9); Hemoglobin 13.8 gm/dl (10.1-14.3); Lymphocytes # (Auto) 1.1 K/mm3 (1.2-5.4); Lymphocytes % (Auto) 7.3 % (13.4-35.0); Mean Corpuscular HGB Conc 32 % (30-34); Mean Corpuscular Hemoglobin 29 pg (28-32); Mean Corpuscular Volume 91 fl (79-97); Monocytes # (Auto) 0.5 K/mm3 (0.0-0.8); Monocytes % (Auto) 3.4 % (0.0-7.3); Red Blood Count 4.71 M/mm3 (3.65-5.03); Red Cell Distribution Width 14.3 % (13.2-15.2)
[2018-03-13 04:48] LABS: Platelet Count 274 K/mm3 (140-440)
[2018-03-13 04:57] LABS: BUN/Creatinine Ratio 20; Blood Urea Nitrogen 14 mg/dL (7-17); Hemolysis Index 12
[2018-03-13] MEDS: SOLU-Medrol IV SCH ×3 (05:26→21:14)
[2018-03-13] MEDS: LASIX IV SCH ×2 (05:26→17:07)
[2018-03-13] MEDS: HumaLOG SUB-Q SCH ×4 (09:36→22:35)
[2018-03-13] MEDS: BABY ASPIRIN PO SCH (09:39)
[2018-03-13] MEDS: ZESTRIL PO SCH (09:40)
[2018-03-13] MEDS: COREG PO SCH ×2 (09:40→21:13)
[2018-03-13] MEDS: LOVENOX SUB-Q SCH (09:40)
[2018-03-13] MEDS: ATIVAN PO SCH ×2 (09:40→21:14)
[2018-03-13] MEDS: LEXAPRO PO SCH (09:41)
[2018-03-13] MEDS: SODIUM CHLORIDE FLUSH SYRINGE 10 ML IV SCH ×2 (09:42→21:14)
[2018-03-13] MEDS: DOXYCYCLINE HYCLATE 100 MG in NACL 0.9% 250ML 250 ML IV SCH ×2 (11:26→21:15)
[2018-03-13] MEDS: TYLENOL PO PRN ×2 (12:27→17:06)
[2018-03-13] MEDS: ROBITUSSIN PO PRN ×2 (12:28→21:16)
--- NOTE | 2018-03-13 14:13 | Progress Note ---
Assessment and Plan Assessment and plan: Acute on chronic hypoxemic respiratory failure. Etiology is multifactorial secondary to COPD exacerbation, OHS/DIMITRIOS. Continue O2. Supportive care to maintain sats greater than 92%. Acute COPD exacerbation. Continue nebulizer treatments, cont. systemic steroids and antibiotics, Cont. O2. Acute bronchitis. Cont. IV antibiotic. Chronic diastolic heart failure. Compensated. Patient reports diagnosis April of last year at [facility]. No evidence or records indicating recent echocardiogram. Check echocardiogram. Stress test done 06/13/16 at [facility]: fixed inferior defect with slight reversibility in the setting of significant breast and diaphragm attenuation, EF 74%. Diabetes mellitus type 2, uncontrolled. Last hemoglobin A1c 8.7. Continue Accu -Cheks, ADA and sliding scale insulin. Morbid obesity. BMI 55.7. Reinforced diet modifications and exercise. Right knee pain. Etiology likely secondary to osteoarthritis. Plain films from December 2017 were negative. History Interval history: No new complaints Hospitalist Physical - Constitutional Vitals: Temp Pulse Resp BP Pulse Ox 97.4 F L 85 18 116/72 93 03/13/18 12:06 03/13/18 13:41 03/13/18 13:41 03/13/18 12:06 03/13/18 12:06 General appearance: Present: no acute distress, well-nourished - EENT Eyes: Present: PERRL, EOM intact ENT: hearing intact, clear oral mucosa, dentition normal - Neck Neck: Present: supple, normal ROM - Respiratory Respiratory effort: normal Respiratory: bilateral: diminished, wheezing - Cardiovascular Rhythm: regular Heart Sounds: Present: S1 & S2. Absent: gallop, rub - Extremities Extremities: no ischemia, No edema, Full ROM - Abdominal General gastrointestinal: soft, non-tender, non-distended, normal bowel sounds - Integumentary Integumentary: Present: clear, warm, dry - Neurologic Neurologic: CNII-XII intact, moves all extremities Results - Labs CBC & Chem 7: 03/13/18 03:47 03/13/18 03:29 Labs: Laboratory Last Values WBC 14.7 K/mm3 (4.5-11.0) H 03/13/18 03:47 RBC 4.71 M/mm3 (3.65-5.03) 03/13/18 03:47 Hgb 13.8 gm/dl (10.1-14.3) 03/13/18 03:47 Hct 42.7 % (30.3-42.9) 03/13/18 03:47 MCV 91 fl (79-97) 03/13/18 03:47 MCH 29 pg (28-32) 03/13/18 03:47 MCHC 32 % (30-34) 03/13/18 03:47 RDW 14.3 % (13.2-15.2) 03/13/18 03:47 Plt Count 274 K/mm3 (140-440) 03/13/18 03:47 Lymph % (Auto) 7.3 % (13.4-35.0) L 03/13/18 03:47 [place] % (Auto) 3.4 % (0.0-7.3) 03/13/18 03:47 Eos % (Auto) 0.2 % (0.0-4.3) 03/13/18 03:47 Baso % (Auto) 0.6 % (0.0-1.8) 03/13/18 03:47 Lymph # 1.1 K/mm3 (1.2-5.4) L 03/13/18 03:47 [place] # 0.5 K/mm3 (0.0-0.8) 03/13/18 03:47 Eos # 0.0 K/mm3 (0.0-0.4) 03/13/18 03:47 Baso # 0.1 K/mm3 (0.0-0.1) 03/13/18 03:47 Add Manual Diff Complete 03/12/18 04:14 Total Counted 100 03/12/18 04:14 Seg Neutrophils % 88.5 % (40.0-70.0) H 03/13/18 03:47 Seg Neuts % (Manual) 91.0 % (40.0-70.0) H 03/12/18 04:14 Band Neutrophils % 5.0 % 03/12/18 04:14 Lymphocytes % (Manual) 3.0 % (13.4-35.0) L 03/12/18 04:14 Reactive Lymphs % (Man) 0 % 03/12/18 04:14 Monocytes % (Manual) 1.0 % (0.0-7.3) 03/12/18 04:14 Eosinophils % (Manual) 0 % (0.0-4.3) 03/12/18 04:14 Basophils % (Manual) 0 % (0.0-1.8) 03/12/18 04:14 Metamyelocytes % 0 % 03/12/18 04:14 Myelocytes % 0 % 03/12/18 04:14 Promyelocytes % 0 % 03/12/18 04:14 Blast Cells % 0 % 03/12/18 04:14 Nucleated RBC % Not Reportable 03/12/18 04:14 Seg Neutrophils # 13.0 K/mm3 (1.8-7.7) H 03/13/18 03:47 Seg Neutrophils # Man 7.6 K/mm3 (1.8-7.7) 03/12/18 04:14 Band Neutrophils # 0.4 K/mm3 03/12/18 04:14 Lymphocytes # (Manual) 0.2 K/mm3 (1.2-5.4) L 03/12/18 04:14 Abs React Lymphs (Man) 0.0 K/mm3 03/12/18 04:14 Monocytes # (Manual) 0.1 K/mm3 (0.0-0.8) 03/12/18 04:14 Eosinophils # (Manual) 0.0 K/mm3 (0.0-0.4) 03/12/18 04:14 Basophils # (Manual) 0.0 K/mm3 (0.0-0.1) 03/12/18 04:14 Metamyelocytes # 0.0 K/mm3 03/12/18 04:14 Myelocytes # 0.0 K/mm3 03/12/18 04:14 Promyelocytes # 0.0 K/mm3 03/12/18 04:14 Blast Cells # 0.0 K/mm3 03/12/18 04:14 WBC Morphology Not Reportable 03/12/18 04:14 Hypersegmented Neuts Not Reportable 03/12/18 04:14 Hyposegmented Neuts Not Reportable 03/12/18 04:14 Hypogranular Neuts Not Reportable 03/12/18 04:14 Smudge Cells Not Reportable 03/12/18 04:14 Toxic Granulation Not Reportable 03/12/18 04:14 Toxic Vacuolation Not Reportable 03/12/18 04:14 Dohle Bodies Not Reportable 03/12/18 04:14 Pelger-Huet Anomaly Not Reportable 03/12/18 04:14 Chantal Rods Not Reportable 03/12/18 04:14 Platelet Estimate Consistent w auto 03/12/18 04:14 Clumped Platelets Not Reportable 03/12/18 04:14 Plt Clumps, EDTA Not Reportable 03/12/18 04:14 Large Platelets Not Reportable 03/12/18 04:14 Giant Platelets Not Reportable 03/12/18 04:14 Platelet Satelliting Not Reportable 03/12/18 04:14 Plt Morphology Comment Not Reportable 03/12/18 04:14 RBC Morphology Not Reportable 03/12/18 04:14 Dimorphic RBCs Not Reportable 03/12/18 04:14 Polychromasia Not Reportable 03/12/18 04:14 Hypochromasia Not Reportable 03/12/18 04:14 Poikilocytosis Not Reportable 03/12/18 04:14 Anisocytosis Not Reportable 03/12/18 04:14 Microcytosis Not Reportable 03/12/18 04:14 Macrocytosis Not Reportable 03/12/18 04:14 Spherocytes Not Reportable 03/12/18 04:14 Pappenheimer Bodies Not Reportable 03/12/18 04:14 Sickle Cells Not Reportable 03/12/18 04:14 Target Cells Not Reportable 03/12/18 04:14 Tear Drop Cells Not Reportable 03/12/18 04:14 Ovalocytes Not Reportable 03/12/18 04:14 Stomatocytes 2+ 03/12/18 04:14 Helmet Cells Not Reportable 03/12/18 04:14 [place] Bodies Not Reportable 03/12/18 04:14 [place] Rings Not Reportable 03/12/18 04:14 Ray Cells Not Reportable 03/12/18 04:14 Bite Cells Not Reportable 03/12/18 04:14 Crenated Cell Not Reportable 03/12/18 04:14 Elliptocytes Not Reportable 03/12/18 04:14 Acanthocytes (Spur) Not Reportable 03/12/18 04:14 Rouleaux Not Reportable 03/12/18 04:14 Hemoglobin C Crystals Not Reportable 03/12/18 04:14 Schistocytes Not Reportable 03/12/18 04:14 Malaria parasites Not Reportable 03/12/18 04:14 [place]ber Bodies Not Reportable 03/12/18 04:14 Hem Pathologist Commnt No 03/12/18 04:14 Sodium 140 mmol/L (137-145) 03/13/18 03:29 Potassium 4.9 mmol/L (3.6-5.0) 03/13/18 03:29 Chloride 99.1 mmol/L (98-107) 03/13/18 03:29 Carbon Dioxide 33 mmol/L (22-30) H 03/13/18 03:29 Anion Gap 13 mmol/L 03/13/18 03:29 BUN 14 mg/dL (7-17) 03/13/18 03:29 Creatinine 0.7 mg/dL (0.7-1.2) 03/13/18 03:29 Estimated GFR > 60 ml/min 03/13/18 03:29 BUN/Creatinine Ratio 20 % 03/13/18 03:29 Glucose 259 mg/dL (65-100) H 03/13/18 03:29 POC Glucose 335 (70-105) H 03/13/18 12:04 Calcium 10.0 mg/dL (8.4-10.2) 03/13/18 03:29 Total Creatine Kinase 53 units/L (30-135) 03/12/18 04:14 CK-MB (CK-2) 1.7 ng/mL (0.0-4.0) 03/12/18 04:14 CK-MB (CK-2) Rel Index 3.2 (0-4) 03/12/18 04:14 Troponin T < 0.010 ng/mL (0.00-0.029) 03/12/18 04:14
[2018-03-13] MEDS ORDERED: PERCOCET 5/325 PO PRN (22:59)
[2018-03-13] MEDS: NORCO 5/325 PO PRN (23:13)
[2018-03-14] MEDS: DUONEB *Not for PRN Use IH SCH ×4 (04:07→21:15)
[2018-03-14] MEDS: LASIX IV SCH ×2 (05:27→18:14)
[2018-03-14] MEDS: SOLU-Medrol IV SCH ×3 (05:27→21:52)
[2018-03-14] MEDS: NORCO 5/325 PO PRN ×3 (05:27→21:52)
[2018-03-14] MEDS: ROBITUSSIN PO PRN ×3 (05:27→21:52)
[2018-03-14] MEDS: HumaLOG SUB-Q SCH ×4 (08:39→21:55)
[2018-03-14] MEDS: COREG PO SCH ×2 (09:44→21:57)
[2018-03-14] MEDS: BABY ASPIRIN PO SCH (09:45)
[2018-03-14] MEDS: LOVENOX SUB-Q SCH (09:45)
[2018-03-14] MEDS: ZESTRIL PO SCH (09:45)
[2018-03-14] MEDS: LEXAPRO PO SCH (09:45)
[2018-03-14] MEDS: ATIVAN PO SCH ×2 (09:46→21:52)
[2018-03-14] MEDS: SODIUM CHLORIDE FLUSH SYRINGE 10 ML IV SCH ×2 (09:47→21:52)
[2018-03-14] MEDS: DOXYCYCLINE HYCLATE 100 MG in NACL 0.9% 250ML 250 ML IV SCH ×2 (09:52→21:54)
--- NOTE | 2018-03-14 10:39 | Progress Note ---
Assessment and Plan Assessment and plan: Acute on chronic hypoxemic respiratory failure. Etiology is multifactorial secondary to COPD exacerbation, OHS/DIMITRIOS. Continue O2. Supportive care to maintain sats greater than 92%. Acute COPD exacerbation. Continue nebulizer treatments, cont. systemic steroids and antibiotics, Cont. O2. Acute bronchitis. Cont. IV antibiotic. Chronic diastolic heart failure. Compensated. Patient reports diagnosis April of last year at [facility]. No evidence or records indicating recent echocardiogram. Check echocardiogram. Stress test done 06/13/16 at [facility]: fixed inferior defect with slight reversibility in the setting of significant breast and diaphragm attenuation, EF 74%. Diabetes mellitus type 2, uncontrolled. Last hemoglobin A1c 8.7. Continue Accu -Cheks, ADA and sliding scale insulin. Morbid obesity. BMI 55.7. Reinforced diet modifications and exercise. Right knee pain. Etiology likely secondary to osteoarthritis. Plain films from December 2017 were negative. History Interval history: No new complaints Hospitalist Physical - Constitutional Vitals: Temp Pulse Resp BP Pulse Ox 97.8 F 77 18 128/73 90 03/14/18 09:09 03/14/18 10:00 03/14/18 09:09 03/14/18 09:45 03/14/18 09:09 General appearance: Present: no acute distress, well-nourished - EENT Eyes: Present: PERRL, EOM intact ENT: hearing intact, clear oral mucosa, dentition normal - Neck Neck: Present: supple, normal ROM - Respiratory Respiratory effort: normal Respiratory: bilateral: CTA - Cardiovascular Rhythm: regular Heart Sounds: Present: S1 & S2. Absent: gallop, rub - Extremities Extremities: no ischemia, No edema, Full ROM - Abdominal General gastrointestinal: soft, non-tender, non-distended, normal bowel sounds - Integumentary Integumentary: Present: clear, warm, dry - Neurologic Neurologic: CNII-XII intact, moves all extremities Results - Labs CBC & Chem 7: 03/13/18 03:47 03/13/18 03:29 Labs: Laboratory Last Values WBC 14.7 K/mm3 (4.5-11.0) H 03/13/18 03:47 RBC 4.71 M/mm3 (3.65-5.03) 03/13/18 03:47 Hgb 13.8 gm/dl (10.1-14.3) 03/13/18 03:47 Hct 42.7 % (30.3-42.9) 03/13/18 03:47 MCV 91 fl (79-97) 03/13/18 03:47 MCH 29 pg (28-32) 03/13/18 03:47 MCHC 32 % (30-34) 03/13/18 03:47 RDW 14.3 % (13.2-15.2) 03/13/18 03:47 Plt Count 274 K/mm3 (140-440) 03/13/18 03:47 Lymph % (Auto) 7.3 % (13.4-35.0) L 03/13/18 03:47 [place] % (Auto) 3.4 % (0.0-7.3) 03/13/18 03:47 Eos % (Auto) 0.2 % (0.0-4.3) 03/13/18 03:47 Baso % (Auto) 0.6 % (0.0-1.8) 03/13/18 03:47 Lymph # 1.1 K/mm3 (1.2-5.4) L 03/13/18 03:47 [place] # 0.5 K/mm3 (0.0-0.8) 03/13/18 03:47 Eos # 0.0 K/mm3 (0.0-0.4) 03/13/18 03:47 Baso # 0.1 K/mm3 (0.0-0.1) 03/13/18 03:47 Add Manual Diff Complete 03/12/18 04:14 Total Counted 100 03/12/18 04:14 Seg Neutrophils % 88.5 % (40.0-70.0) H 03/13/18 03:47 Seg Neuts % (Manual) 91.0 % (40.0-70.0) H 03/12/18 04:14 Band Neutrophils % 5.0 % 03/12/18 04:14 Lymphocytes % (Manual) 3.0 % (13.4-35.0) L 03/12/18 04:14 Reactive Lymphs % (Man) 0 % 03/12/18 04:14 Monocytes % (Manual) 1.0 % (0.0-7.3) 03/12/18 04:14 Eosinophils % (Manual) 0 % (0.0-4.3) 03/12/18 04:14 Basophils % (Manual) 0 % (0.0-1.8) 03/12/18 04:14 Metamyelocytes % 0 % 03/12/18 04:14 Myelocytes % 0 % 03/12/18 04:14 Promyelocytes % 0 % 03/12/18 04:14 Blast Cells % 0 % 03/12/18 04:14 Nucleated RBC % Not Reportable 03/12/18 04:14 Seg Neutrophils # 13.0 K/mm3 (1.8-7.7) H 03/13/18 03:47 Seg Neutrophils # Man 7.6 K/mm3 (1.8-7.7) 03/12/18 04:14 Band Neutrophils # 0.4 K/mm3 03/12/18 04:14 Lymphocytes # (Manual) 0.2 K/mm3 (1.2-5.4) L 03/12/18 04:14 Abs React Lymphs (Man) 0.0 K/mm3 03/12/18 04:14 Monocytes # (Manual) 0.1 K/mm3 (0.0-0.8) 03/12/18 04:14 Eosinophils # (Manual) 0.0 K/mm3 (0.0-0.4) 03/12/18 04:14 Basophils # (Manual) 0.0 K/mm3 (0.0-0.1) 03/12/18 04:14 Metamyelocytes # 0.0 K/mm3 03/12/18 04:14 Myelocytes # 0.0 K/mm3 03/12/18 04:14 Promyelocytes # 0.0 K/mm3 03/12/18 04:14 Blast Cells # 0.0 K/mm3 03/12/18 04:14 WBC Morphology Not Reportable 03/12/18 04:14 Hypersegmented Neuts Not Reportable 03/12/18 04:14 Hyposegmented Neuts Not Reportable 03/12/18 04:14 Hypogranular Neuts Not Reportable 03/12/18 04:14 Smudge Cells Not Reportable 03/12/18 04:14 Toxic Granulation Not Reportable 03/12/18 04:14 Toxic Vacuolation Not Reportable 03/12/18 04:14 Dohle Bodies Not Reportable 03/12/18 04:14 Pelger-Huet Anomaly Not Reportable 03/12/18 04:14 Chantal Rods Not Reportable 03/12/18 04:14 Platelet Estimate Consistent w auto 03/12/18 04:14 Clumped Platelets Not Reportable 03/12/18 04:14 Plt Clumps, EDTA Not Reportable 03/12/18 04:14 Large Platelets Not Reportable 03/12/18 04:14 Giant Platelets Not Reportable 03/12/18 04:14 Platelet Satelliting Not Reportable 03/12/18 04:14 Plt Morphology Comment Not Reportable 03/12/18 04:14 RBC Morphology Not Reportable 03/12/18 04:14 Dimorphic RBCs Not Reportable 03/12/18 04:14 Polychromasia Not Reportable 03/12/18 04:14 Hypochromasia Not Reportable 03/12/18 04:14 Poikilocytosis Not Reportable 03/12/18 04:14 Anisocytosis Not Reportable 03/12/18 04:14 Microcytosis Not Reportable 03/12/18 04:14 Macrocytosis Not Reportable 03/12/18 04:14 Spherocytes Not Reportable 03/12/18 04:14 Pappenheimer Bodies Not Reportable 03/12/18 04:14 Sickle Cells Not Reportable 03/12/18 04:14 Target Cells Not Reportable 03/12/18 04:14 Tear Drop Cells Not Reportable 03/12/18 04:14 Ovalocytes Not Reportable 03/12/18 04:14 Stomatocytes 2+ 03/12/18 04:14 Helmet Cells Not Reportable 03/12/18 04:14 [place] Bodies Not Reportable 03/12/18 04:14 [place] Rings Not Reportable 03/12/18 04:14 [place] Cells Not Reportable 03/12/18 04:14 Bite Cells Not Reportable 03/12/18 04:14 Crenated Cell Not Reportable 03/12/18 04:14 Elliptocytes Not Reportable 03/12/18 04:14 Acanthocytes (Spur) Not Reportable 03/12/18 04:14 Rouleaux Not Reportable 03/12/18 04:14 Hemoglobin C Crystals Not Reportable 03/12/18 04:14 Schistocytes Not Reportable 03/12/18 04:14 Malaria parasites Not Reportable 03/12/18 04:14 [place]ber Bodies Not Reportable 03/12/18 04:14 Hem Pathologist Commnt No 03/12/18 04:14 Sodium 140 mmol/L (137-145) 03/13/18 03:29 Potassium 4.9 mmol/L (3.6-5.0) 03/13/18 03:29 Chloride 99.1 mmol/L (98-107) 03/13/18 03:29 Carbon Dioxide 33 mmol/L (22-30) H 03/13/18 03:29 Anion Gap 13 mmol/L 03/13/18 03:29 BUN 14 mg/dL (7-17) 03/13/18 03:29 Creatinine 0.7 mg/dL (0.7-1.2) 03/13/18 03:29 Estimated GFR > 60 ml/min 03/13/18 03:29 BUN/Creatinine Ratio 20 % 03/13/18 03:29 Glucose 259 mg/dL (65-100) H 03/13/18 03:29 POC Glucose 303 (70-105) H 03/14/18 07:44 Calcium 10.0 mg/dL (8.4-10.2) 03/13/18 03:29 Total Creatine Kinase 53 units/L (30-135) 03/12/18 04:14 CK-MB (CK-2) 1.7 ng/mL (0.0-4.0) 03/12/18 04:14 CK-MB (CK-2) Rel Index 3.2 (0-4) 03/12/18 04:14 Troponin T < 0.010 ng/mL (0.00-0.029) 03/12/18 04:14
[2018-03-15] MEDS: NORCO 5/325 PO PRN ×4 (04:00→22:35)
[2018-03-15] MEDS: DUONEB *Not for PRN Use IH SCH ×4 (04:15→20:31)
[2018-03-15] MEDS: LASIX IV SCH ×2 (05:27→17:45)
[2018-03-15] MEDS: SOLU-Medrol IV SCH ×2 (05:27→22:36)
[2018-03-15] MEDS: HumaLOG SUB-Q SCH ×4 (08:16→22:36)
[2018-03-15] MEDS: LOVENOX SUB-Q SCH (09:11)
[2018-03-15] MEDS: BABY ASPIRIN PO SCH (09:12)
[2018-03-15] MEDS: ATIVAN PO SCH ×2 (09:12→22:36)
[2018-03-15] MEDS: ZESTRIL PO SCH (09:12)
[2018-03-15] MEDS: LEXAPRO PO SCH (09:13)
[2018-03-15] MEDS: COREG PO SCH ×2 (09:13→22:38)
[2018-03-15] MEDS: SODIUM CHLORIDE FLUSH SYRINGE 10 ML IV SCH ×2 (09:14→22:38)
[2018-03-15] MEDS: DOXYCYCLINE HYCLATE 100 MG in NACL 0.9% 250ML 250 ML IV SCH ×2 (09:18→22:45)
[2018-03-15] MEDS: ROBITUSSIN PO PRN ×3 (09:39→22:45)
--- NOTE | 2018-03-15 10:29 | Progress Note ---
Assessment and Plan Assessment and plan: Acute on chronic hypoxemic respiratory failure. Etiology is multifactorial secondary to COPD exacerbation, OHS/DIMITRIOS. Continue O2. Supportive care to maintain sats greater than 92%. Acute COPD exacerbation. Continue nebulizer treatments, cont. systemic steroids and antibiotics, Cont. O2. Acute bronchitis. Cont. IV antibiotic. Chronic diastolic heart failure. Compensated. Echocardiogram completed here reveals left ventricular size normal with mild concentric left ventricular hypertrophy and EF of 50-55%. Stress test done 06/13/[address] [facility]: fixed inferior defect with slight reversibility in the setting of significant breast and diaphragm attenuation, EF 74%. Diabetes mellitus type 2, uncontrolled. Last hemoglobin A1c 8.7. Continue Accu -Cheks, ADA and sliding scale insulin. Morbid obesity. BMI 55.7. Reinforced diet modifications and exercise. Right knee pain. Etiology likely secondary to osteoarthritis. Plain films from December 2017 were negative. History Interval history: No new complaints. Patient still with dyspnea on exertion and significant wheezing. Hospitalist Physical - Constitutional Vitals: Temp Pulse Resp BP Pulse Ox 97.9 F 61 18 154/85 98 03/15/18 08:21 03/15/18 09:55 03/15/18 09:55 03/15/18 09:13 03/15/18 09:55 General appearance: Present: no acute distress, well-nourished - EENT Eyes: Present: PERRL, EOM intact ENT: hearing intact, clear oral mucosa, dentition normal - Neck Neck: Present: supple, normal ROM - Respiratory Respiratory effort: normal Respiratory: bilateral: CTA - Cardiovascular Rhythm: regular Heart Sounds: Present: S1 & S2. Absent: gallop, rub - Extremities Extremities: no ischemia, No edema, Full ROM - Abdominal General gastrointestinal: soft, non-tender, non-distended, normal bowel sounds - Integumentary Integumentary: Present: clear, warm, dry - Neurologic Neurologic: CNII-XII intact, moves all extremities Results - Labs CBC & Chem 7: 03/13/18 03:47 03/13/18 03:29 Labs: Laboratory Last Values WBC 14.7 K/mm3 (4.5-11.0) H 03/13/18 03:47 RBC 4.71 M/mm3 (3.65-5.03) 03/13/18 03:47 Hgb 13.8 gm/dl (10.1-14.3) 03/13/18 03:47 Hct 42.7 % (30.3-42.9) 03/13/18 03:47 MCV 91 fl (79-97) 03/13/18 03:47 MCH 29 pg (28-32) 03/13/18 03:47 MCHC 32 % (30-34) 03/13/18 03:47 RDW 14.3 % (13.2-15.2) 03/13/18 03:47 Plt Count 274 K/mm3 (140-440) 03/13/18 03:47 Lymph % (Auto) 7.3 % (13.4-35.0) L 03/13/18 03:47 [place] % (Auto) 3.4 % (0.0-7.3) 03/13/18 03:47 Eos % (Auto) 0.2 % (0.0-4.3) 03/13/18 03:47 Baso % (Auto) 0.6 % (0.0-1.8) 03/13/18 03:47 Lymph # 1.1 K/mm3 (1.2-5.4) L 03/13/18 03:47 [place] # 0.5 K/mm3 (0.0-0.8) 03/13/18 03:47 Eos # 0.0 K/mm3 (0.0-0.4) 03/13/18 03:47 Baso # 0.1 K/mm3 (0.0-0.1) 03/13/18 03:47 Add Manual Diff Complete 03/12/18 04:14 Total Counted 100 03/12/18 04:14 Seg Neutrophils % 88.5 % (40.0-70.0) H 03/13/18 03:47 Seg Neuts % (Manual) 91.0 % (40.0-70.0) H 03/12/18 04:14 Band Neutrophils % 5.0 % 03/12/18 04:14 Lymphocytes % (Manual) 3.0 % (13.4-35.0) L 03/12/18 04:14 Reactive Lymphs % (Man) 0 % 03/12/18 04:14 Monocytes % (Manual) 1.0 % (0.0-7.3) 03/12/18 04:14 Eosinophils % (Manual) 0 % (0.0-4.3) 03/12/18 04:14 Basophils % (Manual) 0 % (0.0-1.8) 03/12/18 04:14 Metamyelocytes % 0 % 03/12/18 04:14 Myelocytes % 0 % 03/12/18 04:14 Promyelocytes % 0 % 03/12/18 04:14 Blast Cells % 0 % 03/12/18 04:14 Nucleated RBC % Not Reportable 03/12/18 04:14 Seg Neutrophils # 13.0 K/mm3 (1.8-7.7) H 03/13/18 03:47 Seg Neutrophils # Man 7.6 K/mm3 (1.8-7.7) 03/12/18 04:14 Band Neutrophils # 0.4 K/mm3 03/12/18 04:14 Lymphocytes # (Manual) 0.2 K/mm3 (1.2-5.4) L 03/12/18 04:14 Abs React Lymphs (Man) 0.0 K/mm3 03/12/18 04:14 Monocytes # (Manual) 0.1 K/mm3 (0.0-0.8) 03/12/18 04:14 Eosinophils # (Manual) 0.0 K/mm3 (0.0-0.4) 03/12/18 04:14 Basophils # (Manual) 0.0 K/mm3 (0.0-0.1) 03/12/18 04:14 Metamyelocytes # 0.0 K/mm3 03/12/18 04:14 Myelocytes # 0.0 K/mm3 03/12/18 04:14 Promyelocytes # 0.0 K/mm3 03/12/18 04:14 Blast Cells # 0.0 K/mm3 03/12/18 04:14 WBC Morphology Not Reportable 03/12/18 04:14 Hypersegmented Neuts Not Reportable 03/12/18 04:14 Hyposegmented Neuts Not Reportable 03/12/18 04:14 Hypogranular Neuts Not Reportable 03/12/18 04:14 Smudge Cells Not Reportable 03/12/18 04:14 Toxic Granulation Not Reportable 03/12/18 04:14 Toxic Vacuolation Not Reportable 03/12/18 04:14 Dohle Bodies Not Reportable 03/12/18 04:14 Pelger-Huet Anomaly Not Reportable 03/12/18 04:14 Chantal Rods Not Reportable 03/12/18 04:14 Platelet Estimate Consistent w auto 03/12/18 04:14 Clumped Platelets Not Reportable 03/12/18 04:14 Plt Clumps, EDTA Not Reportable 03/12/18 04:14 Large Platelets Not Reportable 03/12/18 04:14 Giant Platelets Not Reportable 03/12/18 04:14 Platelet Satelliting Not Reportable 03/12/18 04:14 Plt Morphology Comment Not Reportable 03/12/18 04:14 RBC Morphology Not Reportable 03/12/18 04:14 Dimorphic RBCs Not Reportable 03/12/18 04:14 Polychromasia Not Reportable 03/12/18 04:14 Hypochromasia Not Reportable 03/12/18 04:14 Poikilocytosis Not Reportable 03/12/18 04:14 Anisocytosis Not Reportable 03/12/18 04:14 Microcytosis Not Reportable 03/12/18 04:14 Macrocytosis Not Reportable 03/12/18 04:14 Spherocytes Not Reportable 03/12/18 04:14 Pappenheimer Bodies Not Reportable 03/12/18 04:14 Sickle Cells Not Reportable 03/12/18 04:14 Target Cells Not Reportable 03/12/18 04:14 Tear Drop Cells Not Reportable 03/12/18 04:14 Ovalocytes Not Reportable 03/12/18 04:14 Stomatocytes 2+ 03/12/18 04:14 Helmet Cells Not Reportable 03/12/18 04:14 [place] Bodies Not Reportable 03/12/18 04:14 [place] Rings Not Reportable 03/12/18 04:14 [place] Cells Not Reportable 03/12/18 04:14 Bite Cells Not Reportable 03/12/18 04:14 Crenated Cell Not Reportable 03/12/18 04:14 Elliptocytes Not Reportable 03/12/18 04:14 Acanthocytes (Spur) Not Reportable 03/12/18 04:14 Rouleaux Not Reportable 03/12/18 04:14 Hemoglobin C Crystals Not Reportable 03/12/18 04:14 Schistocytes Not Reportable 03/12/18 04:14 Malaria parasites Not Reportable 03/12/18 04:14 [place] Bodies Not Reportable 03/12/18 04:14 Hem Pathologist Commnt No 03/12/18 04:14 Sodium 140 mmol/L (137-145) 03/13/18 03:29 Potassium 4.9 mmol/L (3.6-5.0) 03/13/18 03:29 Chloride 99.1 mmol/L (98-107) 03/13/18 03:29 Carbon Dioxide 33 mmol/L (22-30) H 03/13/18 03:29 Anion Gap 13 mmol/L 03/13/18 03:29 BUN 14 mg/dL (7-17) 03/13/18 03:29 Creatinine 0.7 mg/dL (0.7-1.2) 03/13/18 03:29 Estimated GFR > 60 ml/min 03/13/18 03:29 BUN/Creatinine Ratio 20 % 03/13/18 03:29 Glucose 259 mg/dL (65-100) H 03/13/18 03:29 POC Glucose 365 (70-105) H 03/15/18 05:15 Calcium 10.0 mg/dL (8.4-10.2) 03/13/18 03:29 Total Creatine Kinase 53 units/L (30-135) 03/12/18 04:14 CK-MB (CK-2) 1.7 ng/mL (0.0-4.0) 03/12/18 04:14 CK-MB (CK-2) Rel Index 3.2 (0-4) 03/12/18 04:14 Troponin T < 0.010 ng/mL (0.00-0.029) 03/12/18 04:14
[2018-03-16] MEDS: NORCO 5/325 PO PRN ×5 (02:21→22:56)
[2018-03-16] MEDS: DUONEB *Not for PRN Use IH SCH ×4 (02:23→19:03)
[2018-03-16] MEDS: LASIX IV SCH ×2 (06:50→17:09)
[2018-03-16] MEDS: ROBITUSSIN PO PRN ×3 (08:16→22:56)
[2018-03-16] MEDS: HumaLOG SUB-Q SCH ×4 (08:31→21:18)
[2018-03-16] MEDS: LOVENOX SUB-Q SCH (09:09)
[2018-03-16] MEDS: LEXAPRO PO SCH (09:09)
[2018-03-16] MEDS: SOLU-Medrol IV SCH ×2 (09:10→21:17)
[2018-03-16] MEDS: BABY ASPIRIN PO SCH (09:10)
[2018-03-16] MEDS: ZESTRIL PO SCH (09:10)
[2018-03-16] MEDS: ATIVAN PO SCH ×2 (09:11→21:16)
[2018-03-16] MEDS: COREG PO SCH ×2 (09:11→21:16)
[2018-03-16] MEDS: DOXYCYCLINE HYCLATE 100 MG in NACL 0.9% 250ML 250 ML IV SCH (09:12)
[2018-03-16] MEDS: SODIUM CHLORIDE FLUSH SYRINGE 10 ML IV SCH ×2 (09:12→21:17)
--- NOTE | 2018-03-16 11:38 | Progress Note ---
Assessment and Plan Assessment and plan: Acute on chronic hypoxemic respiratory failure. Etiology is multifactorial secondary to COPD exacerbation, OHS/DIMITRIOS. Continue O2. Supportive care to maintain sats greater than 92%. Acute COPD exacerbation. Continue nebulizer treatments, cont. systemic steroids and antibiotics, Cont. O2. Acute bronchitis. Cont. IV antibiotic. Chronic diastolic heart failure. Compensated. Echocardiogram completed here reveals left ventricular size normal with mild concentric left ventricular hypertrophy and EF of 50-55%. Stress test done 06/13/16 at [facility]: fixed inferior defect with slight reversibility in the setting of significant breast and diaphragm attenuation, EF 74%. Diabetes mellitus type 2, uncontrolled. Last hemoglobin A1c 8.7. Continue Accu -Cheks, ADA and sliding scale insulin. Morbid obesity. Reinforced diet modifications and exercise. Right knee pain. Etiology likely secondary to osteoarthritis. Plain films from December 2017 were negative. Likely dc home in 1-2 days History Interval history: Less shortness of breath, No chest pain Hospitalist Physical - Physical exam Narrative exam: GEN: Not in acute distress, morbidly obese HEENT: Normocephalic, atraumatic, Neck: supple, No JVD Lungs: Decreased breath sounds bilaterally, bilateral rhonchi Heart:S1 and S2 regular, no murmurs, rubs or gallop, Abd:soft, non-tender, non-distended, normal bowel sounds Ext: No edema, no clubbing, no cyanosis Neuro: AAO x 3, no focal neurological signs - Constitutional Vitals: Temp Pulse Resp BP Pulse Ox 97.6 F 69 18 134/79 96 03/16/18 05:00 03/16/18 10:00 03/16/18 10:00 03/16/18 09:11 03/16/18 10:00 General appearance: Present: no acute distress, well-nourished Results - Labs CBC & Chem 7: 03/13/18 03:47 03/13/18 03:29 Labs: Laboratory Last Values WBC 14.7 K/mm3 (4.5-11.0) H 03/13/18 03:47 RBC 4.71 M/mm3 (3.65-5.03) 03/13/18 03:47 Hgb 13.8 gm/dl (10.1-14.3) 03/13/18 03:47 Hct 42.7 % (30.3-42.9) 03/13/18 03:47 MCV 91 fl (79-97) 03/13/18 03:47 MCH 29 pg (28-32) 03/13/18 03:47 MCHC 32 % (30-34) 03/13/18 03:47 RDW 14.3 % (13.2-15.2) 03/13/18 03:47 Plt Count 274 K/mm3 (140-440) 03/13/18 03:47 Lymph % (Auto) 7.3 % (13.4-35.0) L 03/13/18 03:47 [place] % (Auto) 3.4 % (0.0-7.3) 03/13/18 03:47 Eos % (Auto) 0.2 % (0.0-4.3) 03/13/18 03:47 Baso % (Auto) 0.6 % (0.0-1.8) 03/13/18 03:47 Lymph # 1.1 K/mm3 (1.2-5.4) L 03/13/18 03:47 [place] # 0.5 K/mm3 (0.0-0.8) 03/13/18 03:47 Eos # 0.0 K/mm3 (0.0-0.4) 03/13/18 03:47 Baso # 0.1 K/mm3 (0.0-0.1) 03/13/18 03:47 Add Manual Diff Complete 03/12/18 04:14 Total Counted 100 03/12/18 04:14 Seg Neutrophils % 88.5 % (40.0-70.0) H 03/13/18 03:47 Seg Neuts % (Manual) 91.0 % (40.0-70.0) H 03/12/18 04:14 Band Neutrophils % 5.0 % 03/12/18 04:14 Lymphocytes % (Manual) 3.0 % (13.4-35.0) L 03/12/18 04:14 Reactive Lymphs % (Man) 0 % 03/12/18 04:14 Monocytes % (Manual) 1.0 % (0.0-7.3) 03/12/18 04:14 Eosinophils % (Manual) 0 % (0.0-4.3) 03/12/18 04:14 Basophils % (Manual) 0 % (0.0-1.8) 03/12/18 04:14 Metamyelocytes % 0 % 03/12/18 04:14 Myelocytes % 0 % 03/12/18 04:14 Promyelocytes % 0 % 03/12/18 04:14 Blast Cells % 0 % 03/12/18 04:14 Nucleated RBC % Not Reportable 03/12/18 04:14 Seg Neutrophils # 13.0 K/mm3 (1.8-7.7) H 03/13/18 03:47 Seg Neutrophils # Man 7.6 K/mm3 (1.8-7.7) 03/12/18 04:14 Band Neutrophils # 0.4 K/mm3 03/12/18 04:14 Lymphocytes # (Manual) 0.2 K/mm3 (1.2-5.4) L 03/12/18 04:14 Abs React Lymphs (Man) 0.0 K/mm3 03/12/18 04:14 Monocytes # (Manual) 0.1 K/mm3 (0.0-0.8) 03/12/18 04:14 Eosinophils # (Manual) 0.0 K/mm3 (0.0-0.4) 03/12/18 04:14 Basophils # (Manual) 0.0 K/mm3 (0.0-0.1) 03/12/18 04:14 Metamyelocytes # 0.0 K/mm3 03/12/18 04:14 Myelocytes # 0.0 K/mm3 03/12/18 04:14 Promyelocytes # 0.0 K/mm3 03/12/18 04:14 Blast Cells # 0.0 K/mm3 03/12/18 04:14 WBC Morphology Not Reportable 03/12/18 04:14 Hypersegmented Neuts Not Reportable 03/12/18 04:14 Hyposegmented Neuts Not Reportable 03/12/18 04:14 Hypogranular Neuts Not Reportable 03/12/18 04:14 Smudge Cells Not Reportable 03/12/18 04:14 Toxic Granulation Not Reportable 03/12/18 04:14 Toxic Vacuolation Not Reportable 03/12/18 04:14 Dohle Bodies Not Reportable 03/12/18 04:14 Pelger-Huet Anomaly Not Reportable 03/12/18 04:14 Chantal Rods Not Reportable 03/12/18 04:14 Platelet Estimate Consistent w auto 03/12/18 04:14 Clumped Platelets Not Reportable 03/12/18 04:14 Plt Clumps, EDTA Not Reportable 03/12/18 04:14 Large Platelets Not Reportable 03/12/18 04:14 Giant Platelets Not Reportable 03/12/18 04:14 Platelet Satelliting Not Reportable 03/12/18 04:14 Plt Morphology Comment Not Reportable 03/12/18 04:14 RBC Morphology Not Reportable 03/12/18 04:14 Dimorphic RBCs Not Reportable 03/12/18 04:14 Polychromasia Not Reportable 03/12/18 04:14 Hypochromasia Not Reportable 03/12/18 04:14 Poikilocytosis Not Reportable 03/12/18 04:14 Anisocytosis Not Reportable 03/12/18 04:14 Microcytosis Not Reportable 03/12/18 04:14 Macrocytosis Not Reportable 03/12/18 04:14 Spherocytes Not Reportable 03/12/18 04:14 Pappenheimer Bodies Not Reportable 03/12/18 04:14 Sickle Cells Not Reportable 03/12/18 04:14 Target Cells Not Reportable 03/12/18 04:14 Tear Drop Cells Not Reportable 03/12/18 04:14 Ovalocytes Not Reportable 03/12/18 04:14 Stomatocytes 2+ 03/12/18 04:14 Helmet Cells Not Reportable 03/12/18 04:14 [place] Bodies Not Reportable 03/12/18 04:14 [place] Rings Not Reportable 03/12/18 04:14 [place] Cells Not Reportable 03/12/18 04:14 Bite Cells Not Reportable 03/12/18 04:14 Crenated Cell Not Reportable 03/12/18 04:14 Elliptocytes Not Reportable 03/12/18 04:14 Acanthocytes (Spur) Not Reportable 03/12/18 04:14 Rouleaux Not Reportable 03/12/18 04:14 Hemoglobin C Crystals Not Reportable 03/12/18 04:14 Schistocytes Not Reportable 03/12/18 04:14 Mal[place] parasites Not Reportable 03/12/18 04:14 [place] Bodies Not Reportable 03/12/18 04:14 Hem Pathologist Commnt No 03/12/18 04:14 Sodium 140 mmol/L (137-145) 03/13/18 03:29 Potassium 4.9 mmol/L (3.6-5.0) 03/13/18 03:29 Chloride 99.1 mmol/L (98-107) 03/13/18 03:29 Carbon Dioxide 33 mmol/L (22-30) H 03/13/18 03:29 Anion Gap 13 mmol/L 03/13/18 03:29 BUN 14 mg/dL (7-17) 03/13/18 03:29 Creatinine 0.7 mg/dL (0.7-1.2) 03/13/18 03:29 Estimated GFR > 60 ml/min 03/13/18 03:29 BUN/Creatinine Ratio 20 % 03/13/18 03:29 Glucose 259 mg/dL (65-100) H 03/13/18 03:29 POC Glucose 231 (70-105) H 03/16/18 07:04 Calcium 10.0 mg/dL (8.4-10.2) 03/13/18 03:29 Total Creatine Kinase 53 units/L (30-135) 03/12/18 04:14 CK-MB (CK-2) 1.7 ng/mL (0.0-4.0) 03/12/18 04:14 CK-MB (CK-2) Rel Index 3.2 (0-4) 03/12/18 04:14 Troponin T < 0.010 ng/mL (0.00-0.029) 03/12/18 04:14
[2018-03-16] MEDS: VIBRAMYCIN PO SCH (21:17)
[2018-03-17] MEDS: DUONEB *Not for PRN Use IH SCH ×3 (01:45→15:13)
[2018-03-17] MEDS: LASIX IV SCH (05:02)
[2018-03-17] MEDS: NORCO 5/325 PO PRN ×2 (05:02→13:31)
[2018-03-17] MEDS: HumaLOG SUB-Q SCH ×2 (09:05→12:07)
[2018-03-17] MEDS: LEXAPRO PO SCH (09:05)
[2018-03-17] MEDS: VIBRAMYCIN PO SCH (09:06)
[2018-03-17] MEDS: ATIVAN PO SCH (09:06)
[2018-03-17] MEDS: LOVENOX SUB-Q SCH (09:06)
[2018-03-17] MEDS: COREG PO SCH (09:07)
[2018-03-17] MEDS: BABY ASPIRIN PO SCH (09:07)
[2018-03-17] MEDS: SOLU-Medrol IV SCH (09:07)
[2018-03-17] MEDS: ZESTRIL PO SCH (09:07)
[2018-03-17] MEDS: SODIUM CHLORIDE FLUSH SYRINGE 10 ML IV SCH (09:08)
--- NOTE | 2018-03-17 12:01 | Discharge Summary ---
Providers - Providers Date of Admission: 03/11/18 23:13 Date of discharge: 03/17/18 Attending physician: GLORY FLEMING Primary care physician: GENTRY PEREZ MD Hospitalization Condition: Fair Disposition: DC/[place]-06 HOME UNDER HOME [facility] Core Measure Documentation - Palliative Care Palliative Care/ Comfort Measures: Not Applicable - Core Measures Any of the following diagnoses?: none Exam - Constitutional Vitals: Temp Pulse Resp BP Pulse Ox 97.6 F 66 19 145/75 93 03/17/18 04:55 03/17/18 09:00 03/17/18 08:18 03/17/18 04:55 03/17/18 08:19 Plan Activity: advance as tolerated Diet: low fat, low cholesterol, low salt, diabetic Additional Instructions: 1.Follow up with PCP or [facility] in 1 week. 2.Follow up with Juan Saini in 1 week. 3.Continue Oxygen at 2l/min at home Follow up with: PRIMARY CAREMD [Primary Care Provider] - 3-5 Days Prescriptions: Insulin NPH/Regular [NovoLIN 70/30] 36 unit SUB-Q BIDDIAB #1 vial
[2018-03-17 12:54] VITALS: BP 152/90
== END 2018-03-17 17:15 | disposition home health service (06) | DRG 291 ==
LOC: ED 18:50 → 4A 23:13
PROVIDERS: ADMIT Internal Medicine; ATTEND Internal Medicine
DX: I11.0 Hypertensive heart disease with heart failure (principal); J96.21 Acute and chronic respiratory failure with hypoxia; J44.0 Chronic obstructive pulmonary disease with (acute) lower respiratory infection; N39.0 Urinary tract infection, site not specified; J44.1 Chronic obstructive pulmonary disease with (acute) exacerbation; Z68.43 Body mass index [BMI] 50.0-59.9, adult; I50.33 Acute on chronic diastolic (congestive) heart failure; E11.9 Type 2 diabetes mellitus without complications; F31.9 Bipolar disorder, unspecified; E66.01 Morbid (severe) obesity due to excess calories; F17.210 Nicotine dependence, cigarettes, uncomplicated; G89.29 Other chronic pain; F20.9 Schizophrenia, unspecified; J20.9 Acute bronchitis, unspecified; M17.11 Unilateral primary osteoarthritis, right knee; Z99.81 Dependence on supplemental oxygen; Z79.4 Long term (current) use of insulin; Z82.49 Family history of ischemic heart disease and other diseases of the circulatory system; Z88.0 Allergy status to penicillin; Z88.8 Allergy status to other drugs, medicaments and biological substances; Z90.710 Acquired absence of both cervix and uterus; Z23 Encounter for immunization
CPT/HCPCS: 36415; 51702; 71046; 80048; 82550; 82553; 82962; 84484; 85007; 85025; 90686; 90732; 93005; 93010; 93306; 94640; 94760; 96365; 96375; J1650; J1815; J1940; J2405; J2920; J2930; J3010; J3475; J7050

== ENCOUNTER 2018-07-26 18:17 | Inpatient (IN) | payer MEDICARE ==
[2018-07-26 19:15] LABS: Basophils # (Auto) 0.1 K/mm3 (0.0-0.1); Basophils % (Auto) 0.9 % (0.0-1.8); Eosinophils # (Auto) 0.3 K/mm3 (0.0-0.4); Eosinophils % (Auto) 3.4 % (0.0-4.3); Hematocrit 41.9 % (30.3-42.9); Hemoglobin 13.9 gm/dl (10.1-14.3); Lymphocytes # (Auto) 1.8 K/mm3 (1.2-5.4); Lymphocytes % (Auto) 21.7 % (13.4-35.0); Mean Corpuscular HGB Conc 33 % (30-34); Mean Corpuscular Volume 89 fl (79-97); Monocytes # (Auto) 0.4 K/mm3 (0.0-0.8); Monocytes % (Auto) 4.9 % (0.0-7.3); Platelet Count 262 K/mm3 (140-440); Red Blood Count 4.69 M/mm3 (3.65-5.03); Red Cell Distribution Width 15.2 % (13.2-15.2)
[2018-07-26 19:26] LABS: BUN/Creatinine Ratio 13; Blood Urea Nitrogen 9 mg/dL (7-17); Calcium 9.4 mg/dL (8.4-10.2); Hemolysis Index 8
[2018-07-26] MEDS ORDERED: ATROVENT IH ONE (19:40)
[2018-07-26] MEDS ORDERED: PROVENTIL IH ONE (19:40)
[2018-07-26] MEDS ORDERED: SOLU-Medrol IV ONE (19:40)
[2018-07-26] MEDS ORDERED: MORPHINE IV ONE (19:41)
--- NOTE | 2018-07-26 20:09 | Emergency Department Report ---
HPI - General Chief Complaint: Dyspnea/Respdistress Time Seen by Provider: 07/26/18 19:10 - HPI HPI: 52-year-old female presents to the emergency department via EMS from home with complaint of shortness of breath, wheezing, coughing that has been going on for the past week but worsened over the past few days, the weekend. The patient has a history of COPD and is oxygen dependent at home on 2 L via nasal cannula. She also has a history of asthma, CHF, diabetes, hypertension, bipolar disorder and schizophrenia. She says that she's been using her albuterol inhalers and nebulizer treatments consistently without much relief. Her primary care physician is Dr. Josue Cueva and her sales account director is Dr. Corbin. No recent travel or sick contacts at home. ED Past Medical Hx - Past Medical History Previous Medical History?: Yes Hx Hypertension: Yes Hx Heart Attack/AMI: No Hx Congestive Heart Failure: Yes Hx Diabetes: Yes Hx Deep Vein Thrombosis: No Hx Pulmonary Embolism: No Hx Liver Disease: No Hx Arthritis: Yes Hx Psychiatric Treatment: Yes (Bipolar, Schziophrenia) Hx Asthma: Yes Hx COPD: Yes Hx Tuberculosis: No Additional medical history: Bronchitis, Home O2 2 liters, Morbid Obesity, - Surgical History Past Surgical History?: Yes Hx Coronary Stent: No Hx Pacemaker: No Hx Internal Defibrillator: No Additional Surgical History: spinal fusion, left hip, Hysterectomy - Social History Smoking Status: Current Every Day Smoker Substance Use Type: Marijuana - Medications Home Medications: Home Medications Medication Instructions Recorded Confirmed Last Taken Type Escitalopram Oxalate [Lexapro] 20 mg PO DAILY 05/20/18 07/05/18 07/04/18 History 20 mg Insulin Aspart Protam & Aspart 15 units SUB-Q TID 05/20/18 07/05/18 07/04/18 History [NovoLOG Mix 70-30 Flexpen] 15 mg LORazepam [Ativan] 1 mg PO BID 05/20/18 07/05/18 07/04/18 History 1 mg Lisinopril 20 mg PO DAILY 05/20/18 07/05/18 07/04/18 History 20 mg oxyCODONE /ACETAMINOPHEN [Percocet 1 tab PO Q6HR PRN 05/20/18 07/05/18 06/24/18 History 5/325 mg] 1 tab ALBUTEROL Inhaler(NF) [VENTOLIN 1 puff IH QID PRN #1 inha 05/23/18 07/05/18 06/21/18 Rx Inhaler(NF)] 1 puff Loratadine [Claritin] 10 mg PO QDAY #10 tablet 05/23/18 07/05/18 06/24/18 Rx 10 mg Omeprazole Magnesium [PriLOSEC Otc] 20 mg PO DAILY #30 tablet. 05/23/18 07/05/18 07/04/18 Rx 20 mg guaiFENesin [Robitussin] 200 mg PO Q4H PRN 10 Days 05/23/18 07/05/18 06/24/18 Rx oral.liqd 200 mg ED Review of Systems ROS: Stated complaint: ANN Other details as noted in HPI Comment: All other systems reviewed and negative Constitutional: denies: chills, fever Eyes: denies: eye pain, vision change ENT: denies: ear pain, throat pain Respiratory: cough, shortness of breath, wheezing Cardiovascular: edema. denies: chest pain Gastrointestinal: denies: abdominal pain, vomiting Genitourinary: denies: dysuria, discharge Musculoskeletal: denies: back pain, arthralgia Skin: denies: rash, lesions Neurological: denies: headache, weakness Physical Exam - Physical Exam Vital Signs: Vital Signs 07/26/18 18:34 Temperature 98.2 F Pulse Rate 79 Respiratory 22 Rate Blood Pressure 135/67 O2 Sat by Pulse 96 Oximetry Physical Exam: GENERAL: The patient is well-developed well-nourished. HEENT: Normocephalic. Atraumatic. Patient has moist mucous membranes. EYES: Extraocular motions are intact. Pupils are equal and reactive to light bilaterally. NECK: Supple. Trachea is midline. CHEST/LUNGS: Moderate wheezing throughout the chest. There is some tachypnea but no accessory muscle use. There is no respiratory distress noted. HEART/CARDIOVASCULAR: Regular. There is no tachycardia. There is no obvious murmur. ABDOMEN: Abdomen is soft, nontender. Patient has normal bowel sounds. Morbidly obese habitus. SKIN: There is nonpitting edema of the bilateral lower extremities. NEURO: The patient is awake, alert, and oriented. The patient is cooperative. The patient has no focal neurologic deficits. The patient has normal speech. MUSCULOSKELETAL: There is no tenderness or deformity. There is no limitation range of motion. There is no evidence of acute injury. ED Course Vital Signs 07/26/18 18:34 Temperature 98.2 F Pulse Rate 79 Respiratory 22 Rate Blood Pressure 135/67 O2 Sat by Pulse 96 Oximetry ED Medical Decision Making - Lab Data Result diagrams: 07/26/18 18:49 07/26/18 18:49 - EKG Data -: EKG Interpreted by Me EKG shows normal: sinus rhythm, axis, intervals, QRS complexes, ST-T waves Rate: normal - EKG Data When compared to previous EKG there are: no significant change Interpretation: unchanged when compared t (07/05/18) - Radiology Data Radiology results: image reviewed interpreted by me: Chest x-ray does not show any pneumothorax, pleural effusion, pneumonia or obv ious focal consolidation. - Medical Decision Making Patient presents to the emergency department with acute on chronic shortness of breath, wheezing and bronchospasm. Chest x-ray did not show any pleural effusions, pneumonia, pneumothorax, focal consolidation, or any other acute process. Labs have been unremarkable. She was given breathing treatments, ster oids. Despite these treatments, the patient still has moderate bronchospasm. She will be admitted to hospital for acute on chronic exacerbation of her COPD and was accepted for admission by the hospitalist, Dr. Auguste. - Differential Diagnosis COPD, PE, Pneumonia, CHF Critical Care Time: No Critical care attestation.: If time is entered above; I have spent that time in minutes in the direct care of this critically ill patient, excluding procedure time. ED Disposition Clinical Impression: COPD exacerbation, Morbid obesity with BMI of 50.0-59.9, adult, Oxygen dependent, Obesity hypoventilation syndrome Disposition: -09 OP ADMIT IP TO THIS HOSP Is pt being admited?: Yes Condition: Fair Time of Disposition: 23:57
--- NOTE | 2018-07-26 21:30 | XRay Report ---
PROCEDURE: XR CHEST 1V AP TECHNIQUE: AP upright view of the chest HISTORY: SOB COMPARISONS: 07/05/2018 FINDINGS: The cardiomediastinal silhouette is within normal limits in caliber. No infiltrate, effusion, or pneu mothorax. No acute osseous abnormality is seen. IMPRESSION: No pulmonary infiltrates are identified. This document is electronically signed by Dolly Coe MD., July 26 2018 09:27:41 PM ET
[2018-07-26] MEDS ORDERED: ZOFRAN IV ONE ×2 (22:12→22:23)
[2018-07-26] MEDS ORDERED: D50W (25GM) Syringe IV PRN (22:52)
[2018-07-26] MEDS ORDERED: TYLENOL PO PRN (22:58)
[2018-07-26] MEDS ORDERED: ZOFRAN IV PRN (23:00)
[2018-07-27] MEDS: ROBITUSSIN PO PRN ×4 (00:58→22:53)
[2018-07-27] MEDS ORDERED: PROVENTIL IH ONE (02:30)
[2018-07-27] MEDS: PERCOCET 5/325 PO PRN ×4 (03:03→22:53)
[2018-07-27] MEDS: SOLU-Medrol IV SCH ×3 (06:42→21:15)
--- NOTE | 2018-07-27 07:57 | History and Physical Report ---
CHIEF COMPLAINT: Shortness of breath. HISTORY OF PRESENT ILLNESS: The patient is a 52-year-old with known history of COPD, presented with shortness of breath going on for a few days and associated with cough, productive of white to yellow sputum. There is no history of chest pain, no history of fever or chills. There is no history of nausea or vomiting or diaphoresis. PAST MEDICAL HISTORY: Pertinent for hypertension, congestive heart failure, diabetes mellitus, arthritis, bipolar disorder, and schizophrenia. Also, the patient has past history of COPD and asthma, and is home O2 dependent. There is also a past history of obesity. PAST SURGICAL HISTORY: Pertinent for spinal fusion surgery, left hip surgery, hysterectomy. FAMILY HISTORY: Noncontributory. SOCIAL HISTORY: The patient smokes cigarettes, uses marijuana and does not drink alcohol. MEDICATIONS: The patient is on Lexapro 20 mg by mouth daily, insulin aspart 70/30 50 units subcutaneous 3 times daily, Ativan 1 mg by mouth twice daily, lisinopril 20 mg by mouth daily, Percocet one by mouth every 6 hours, Ventolin 1 puff inhalation q.i.d., loratadine 10 mg by mouth daily, omeprazole 20 mg by mouth daily, Robitussin 200 mg by mouth every 4 hours as needed for cough. ALLERGIES: THE PATIENT IS ALLERGIC TO PENICILLIN, PREDNISONE, BUPROPION, HYDROCHLORIDE, DIVALPROEX SODIUM. REVIEW OF SYSTEMS: CONSTITUTIONAL: There is no fever, no chills, no diaphoresis. HEENT: There is no headache or sore throat. CARDIOVASCULAR: There is no chest pain or orthopnea. RESPIRATORY: Shortness of breath is present. Cough is present. GASTROINTESTINAL: There is no nausea, no vomiting, no abdominal pain, diarrhea, or constipation. NEUROLOGICAL: There is no numbness, no dizziness, no altered mental status. MUSCULOSKELETAL: There is no joint pain or swelling. DERMATOLOGICAL: There is no skin rash or itching. GENITOURINARY: There is no dysuria, hematuria, or flank pain. Rest of system review is normal. PHYSICAL EXAMINATION: GENERAL: At the time of exam, the patient was found to be alert, oriented x 3, and not in acute distress. VITAL SIGNS: At the initial time of presentation shows temperature of 98.2 degrees Fahrenheit, pulse of 79, respiration 22, blood pressure 135/67, O2 sat of 96% on oxygen. HEENT: Showed pupils to be equal, round, reactive to light and light and accommodating. Extraocular muscles are intact. NECK: Supple with no JVD or carotid bruit. CARDIOVASCULAR SYSTEM: Showed normal first and second heart sounds with no gallops or murmur. RESPIRATORY SYSTEM: Show reduced air entry on both sides of the lungs with wheezing. GASTROINTESTINAL SYSTEM: Show abdomen to be full, soft, nontender with no organomegaly or rigidity. NEUROLOGICAL: Shows no focal deficit. MUSCULOSKELETAL SYSTEM: Show no joint swelling or tenderness. DERMATOLOGICAL SYSTEM: Show no skin rash. GENITOURINARY SYSTEM: Showing no costovertebral angle tenderness. PERTINENT LABORATORY DATA AND IMAGING STUDIES: The patient had chest x-ray done that shows no pulmonary infiltrate. The patient lab result shows normal CBC with normal D-dimer and chemistry was unremarkable except for elevated blood glucose level of 141. DIAGNOSIS: Chronic obstructive pulmonary disease exacerbation. PLAN OF CARE: 1. The patient will be admitted to medical floor. 2. The patient will be on DuoNeb nebulizer q.i.d. 3. The patient will be on IV Levaquin 750 mg daily and will be on IV Solu-Medrol 60 mg every 8 hours. 4. The patient will be on guaifenesin 200 mg by mouth every 4 hours as needed for cough. 5. The patient will be on consistent carbohydrate, low sodium diet. 6. The patient will be on Accu-Chek a.c. and at bedtime followed by low-dose sliding scale using regular insulin coverage. 7. The patient will be on heparin 5000 units subcutaneous q. 12 hours for DVT prophylaxis and will be on p.r.n. medications like Tylenol 650 mg by mouth every 4 hours for fever and headache, and Zofran 4 mg every 8 hours as needed for nausea and vomiting. 8. The patient will be on oxygen per respiratory therapy protocol. JOB# [id number] OCN/NTS
[2018-07-27] MEDS: HumuLIN R SUB-Q SCH ×4 (08:30→22:12)
[2018-07-27] MEDS: DUONEB *Not for PRN Use IH SCH ×4 (08:32→19:30)
[2018-07-27] MEDS ORDERED: ROBITUSSIN PO PRN (09:52)
[2018-07-27] MEDS ORDERED: PROAIR IH PRN (09:52)
[2018-07-27] MEDS ORDERED: PERCOCET 5/325 PO PRN (09:52)
[2018-07-27] MEDS: LEVAQUIN 750MG/150ML 750 MG/150 ML BAG IV SCH (09:54)
[2018-07-27] MEDS: HEPARIN SUB-Q SCH ×2 (09:54→21:15)
[2018-07-27] MEDS ORDERED: NON-FORMULARY (Omeprazole Magnesium [Prilosec Otc] 20 MG) PO SCH (10:00)
[2018-07-27] MEDS ORDERED: NON-FORMULARY (Escitalopram Oxalate [Lexapro] 20 MG) PO SCH (10:00)
--- NOTE | 2018-07-27 10:55 | Progress Note ---
Assessment and Plan Assessment and plan: Acute on chronic hypoxemic respiratory failure. Continue O2 to maintain saturations greater than 92%. BiPAP as clinically indicated. Follow serial chest x-ray. Acute COPD exacerbation. Continue bronchodilators/nebulizer treatments. Continue solumedrol. She has used before with no reaction. She states Prednisone causes palpitation but not solumedrol Tobacco abuse. Patient has been counseled on smoking cessation. Hypertension. Continue antihypertensive medications. OHS. As above. History Interval history: No new issues since admission Hospitalist Physical - Constitutional Vitals: Temp Pulse Resp BP Pulse Ox 98.0 F 85 18 138/79 92 07/27/18 00:28 07/27/18 08:41 07/27/18 08:41 07/27/18 00:28 07/27/18 09:43 General appearance: Present: no acute distress, well-nourished - EENT Eyes: Present: PERRL, EOM intact ENT: hearing intact, clear oral mucosa, dentition normal - Neck Neck: Present: supple, normal ROM - Respiratory Respiratory effort: normal Respiratory: bilateral: CTA - Cardiovascular Rhythm: regular Heart Sounds: Present: S1 & S2. Absent: gallop, rub - Extremities Extremities: no ischemia, No edema, Full ROM - Abdominal General gastrointestinal: soft, non-tender, non-distended, normal bowel sounds - Integumentary Integumentary: Present: clear, warm, dry - Neurologic Neurologic: CNII-XII intact, moves all extremities Results - Labs CBC & Chem 7: 07/26/18 18:49 07/26/18 18:49 Labs: Laboratory Last Values WBC 8.2 K/mm3 (4.5-11.0) 07/26/18 18:49 RBC 4.69 M/mm3 (3.65-5.03) 07/26/18 18:49 Hgb 13.9 gm/dl (10.1-14.3) 07/26/18 18:49 Hct 41.9 % (30.3-42.9) 07/26/18 18:49 MCV 89 fl (79-97) 07/26/18 18:49 MCH 30 pg (28-32) 07/26/18 18:49 MCHC 33 % (30-34) 07/26/18 18:49 RDW 15.2 % (13.2-15.2) 07/26/18 18:49 Plt Count 262 K/mm3 (140-440) 07/26/18 18:49 Lymph % (Auto) 21.7 % (13.4-35.0) 07/26/18 18:49 Gem % (Auto) 4.9 % (0.0-7.3) 07/26/18 18:49 Eos % (Auto) 3.4 % (0.0-4.3) 07/26/18 18:49 Baso % (Auto) 0.9 % (0.0-1.8) 07/26/18 18:49 Lymph # 1.8 K/mm3 (1.2-5.4) 07/26/18 18:49 Gem # 0.4 K/mm3 (0.0-0.8) 07/26/18 18:49 Eos # 0.3 K/mm3 (0.0-0.4) 07/26/18 18:49 Baso # 0.1 K/mm3 (0.0-0.1) 07/26/18 18:49 Seg Neutrophils % 69.1 % (40.0-70.0) 07/26/18 18:49 Seg Neutrophils # 5.6 K/mm3 (1.8-7.7) 07/26/18 18:49 D-Dimer 149.20 ng/mlDDU (0-234) 07/26/18 19:48 Sodium 142 mmol/L (137-145) 07/26/18 18:49 Potassium 3.8 mmol/L (3.6-5.0) 07/26/18 18:49 Chloride 103.0 mmol/L (98-107) 07/26/18 18:49 Carbon Dioxide 29 mmol/L (22-30) 07/26/18 18:49 Anion Gap 14 mmol/L 07/26/18 18:49 BUN 9 mg/dL (7-17) 07/26/18 18:49 Creatinine 0.7 mg/dL (0.7-1.2) 07/26/18 18:49 Estimated GFR > 60 ml/min 07/26/18 18:49 BUN/Creatinine Ratio 13 % 07/26/18 18:49 Glucose 141 mg/dL (65-100) H 07/26/18 18:49 POC Glucose 234 (70-105) H 07/27/18 07:43 Calcium 9.4 mg/dL (8.4-10.2) 07/26/18 18:49 Magnesium 1.70 mg/dL (1.7-2.3) 07/26/18 19:48 Troponin T < 0.010 ng/mL (0.00-0.029) 07/26/18 19:48 NT-Pro-B Natriuret Pep 105.3 pg/mL (0-900) 07/26/18 19:48
[2018-07-27] MEDS: LEXAPRO PO SCH (11:28)
[2018-07-27] MEDS: ZESTRIL PO SCH (11:29)
[2018-07-27] MEDS: ATIVAN PO SCH ×2 (11:29→21:16)
[2018-07-27] MEDS: PROTONIX PO SCH (11:29)
[2018-07-27] MEDS: CLARITIN PO SCH (11:29)
[2018-07-27] MEDS ORDERED: ASPART SUB-Q SCH (14:00)
[2018-07-27] MEDS ORDERED: INSULIN ASPART PROTAM SUB-Q SCH (14:00)
[2018-07-28] MEDS: ROBITUSSIN PO PRN ×4 (01:48→21:55)
[2018-07-28] MEDS: PROVENTIL IH PRN ×2 (03:15→16:55)
[2018-07-28] MEDS: PERCOCET 5/325 PO PRN ×4 (03:47→21:43)
[2018-07-28] MEDS: SOLU-Medrol IV SCH ×3 (06:00→21:44)
[2018-07-28] MEDS: DUONEB *Not for PRN Use IH SCH ×4 (08:23→21:09)
[2018-07-28] MEDS: PROTONIX PO SCH (09:31)
[2018-07-28] MEDS: ZESTRIL PO SCH (09:31)
[2018-07-28] MEDS: ATIVAN PO SCH ×2 (09:31→21:43)
[2018-07-28] MEDS: CLARITIN PO SCH (09:31)
[2018-07-28] MEDS: HEPARIN SUB-Q SCH ×2 (09:32→21:47)
[2018-07-28] MEDS: LEVAQUIN 750MG/150ML 750 MG/150 ML BAG IV SCH (09:32)
[2018-07-28] MEDS: HumuLIN R SUB-Q SCH ×4 (09:33→21:57)
[2018-07-28] MEDS: LEXAPRO PO SCH (09:41)
--- NOTE | 2018-07-28 10:56 | Progress Note ---
Assessment and Plan Assessment and plan: Acute on chronic hypoxemic respiratory failure. Continue O2 to maintain saturations greater than 92%. BiPAP as clinically indicated. Follow serial chest x-ray. Acute COPD exacerbation. Continue bronchodilators/nebulizer treatments. Continue solumedrol. Tobacco abuse. Patient has been counseled on smoking cessation. Hypertension. Continue antihypertensive medications. OHS. As above. History Interval history: No new issues overnight. Patient still complains of exertional dyspnea. Hospitalist Physical - Constitutional Vitals: Temp Pulse Resp BP Pulse Ox 97.8 F 79 18 111/63 95 07/27/18 23:15 07/28/18 08:33 07/28/18 08:33 07/27/18 23:15 07/28/18 08:25 General appearance: Present: no acute distress, well-nourished - EENT Eyes: Present: PERRL, EOM intact ENT: hearing intact, clear oral mucosa, dentition normal - Neck Neck: Present: supple, normal ROM - Respiratory Respiratory effort: normal Respiratory: bilateral: diminished, wheezing - Cardiovascular Rhythm: regular Heart Sounds: Present: S1 & S2. Absent: gallop, rub - Extremities Extremities: no ischemia, No edema, Full ROM - Abdominal General gastrointestinal: soft, non-tender, non-distended, normal bowel sounds - Integumentary Integumentary: Present: clear, warm, dry - Neurologic Neurologic: CNII-XII intact, moves all extremities Results - Labs CBC & Chem 7: 07/26/18 18:49 07/26/18 18:49 Labs: Laboratory Last Values WBC 8.2 K/mm3 (4.5-11.0) 07/26/18 18:49 RBC 4.69 M/mm3 (3.65-5.03) 07/26/18 18:49 Hgb 13.9 gm/dl (10.1-14.3) 07/26/18 18:49 Hct 41.9 % (30.3-42.9) 07/26/18 18:49 MCV 89 fl (79-97) 07/26/18 18:49 MCH 30 pg (28-32) 07/26/18 18:49 MCHC 33 % (30-34) 07/26/18 18:49 RDW 15.2 % (13.2-15.2) 07/26/18 18:49 Plt Count 262 K/mm3 (140-440) 07/26/18 18:49 Lymph % (Auto) 21.7 % (13.4-35.0) 07/26/18 18:49 [place] % (Auto) 4.9 % (0.0-7.3) 07/26/18 18:49 Eos % (Auto) 3.4 % (0.0-4.3) 07/26/18 18:49 Baso % (Auto) 0.9 % (0.0-1.8) 07/26/18 18:49 Lymph # 1.8 K/mm3 (1.2-5.4) 07/26/18 18:49 [place] # 0.4 K/mm3 (0.0-0.8) 07/26/18 18:49 Eos # 0.3 K/mm3 (0.0-0.4) 07/26/18 18:49 Baso # 0.1 K/mm3 (0.0-0.1) 07/26/18 18:49 Seg Neutrophils % 69.1 % (40.0-70.0) 07/26/18 18:49 Seg Neutrophils # 5.6 K/mm3 (1.8-7.7) 07/26/18 18:49 D-Dimer 149.20 ng/mlDDU (0-234) 07/26/18 19:48 Sodium 142 mmol/L (137-145) 07/26/18 18:49 Potassium 3.8 mmol/L (3.6-5.0) 07/26/18 18:49 Chloride 103.0 mmol/L (98-107) 07/26/18 18:49 Carbon Dioxide 29 mmol/L (22-30) 07/26/18 18:49 Anion Gap 14 mmol/L 07/26/18 18:49 BUN 9 mg/dL (7-17) 07/26/18 18:49 Creatinine 0.7 mg/dL (0.7-1.2) 07/26/18 18:49 Estimated GFR > 60 ml/min 07/26/18 18:49 BUN/Creatinine Ratio 13 % 07/26/18 18:49 Glucose 141 mg/dL (65-100) H 07/26/18 18:49 POC Glucose 289 (70-105) H 07/28/18 07:40 Calcium 9.4 mg/dL (8.4-10.2) 07/26/18 18:49 Magnesium 1.70 mg/dL (1.7-2.3) 07/26/18 19:48 Troponin T < 0.010 ng/mL (0.00-0.029) 07/26/18 19:48 NT-Pro-B Natriuret Pep 105.3 pg/mL (0-900) 07/26/18 19:48 Nutrition/Malnutrition Assess - Dietary Evaluation Nutrition/Malnutrition Findings: Nutrition Notes Start: 07/27/18 14:04 Freq: Status: Active Protocol: Document 07/27/18 14:04 (Rec: 07/27/18 14:06 [email or web address]) Nutrition Notes Need for Assessment generated from: pump runner Initial or Follow up Brief Note Subjective/Other Information Screened for skin risk. No lorenza score or skin problems in record. Nutrition Intervention Revisit per MD consult or patient Sign Off request:
[2018-07-29] MEDS: ROBITUSSIN PO PRN ×3 (03:06→18:14)
[2018-07-29] MEDS: PROVENTIL IH PRN (03:07)
[2018-07-29] MEDS: PERCOCET 5/325 PO PRN ×4 (03:09→23:16)
[2018-07-29] MEDS: SOLU-Medrol IV SCH ×3 (06:04→21:35)
[2018-07-29] MEDS: DUONEB *Not for PRN Use IH SCH ×4 (07:17→19:57)
[2018-07-29] MEDS: HumuLIN R SUB-Q SCH ×4 (08:40→21:36)
--- NOTE | 2018-07-29 10:27 | Progress Note ---
Assessment and Plan Assessment and plan: Acute on chronic hypoxemic respiratory failure. Continue O2 to maintain saturations greater than 92%. BiPAP as clinically indicated. Follow serial chest x-ray. Acute COPD exacerbation. Continue bronchodilators/nebulizer treatments. Continue solumedrol. Pulmonary consultation Tobacco abuse. Patient has been counseled on smoking cessation. Hypertension. Continue antihypertensive medications. OHS. As above. History Interval history: No new issues overnight. Patient still complains of exertional dyspnea with minimal movement. Hospitalist Physical - Constitutional Vitals: Temp Pulse Resp BP Pulse Ox 97.5 F L 75 18 138/64 96 07/29/18 06:50 07/29/18 07:27 07/29/18 07:27 07/29/18 06:50 07/29/18 07:16 General appearance: Present: no acute distress, well-nourished - EENT Eyes: Present: PERRL, EOM intact ENT: hearing intact, clear oral mucosa, dentition normal - Neck Neck: Present: supple, normal ROM - Respiratory Respiratory effort: normal Respiratory: bilateral: diminished, wheezing - Cardiovascular Rhythm: regular Heart Sounds: Present: S1 & S2. Absent: gallop, rub - Extremities Extremities: no ischemia, No edema, Full ROM - Abdominal General gastrointestinal: soft, non-tender, non-distended, normal bowel sounds - Integumentary Integumentary: Present: clear, warm, dry - Neurologic Neurologic: CNII-XII intact, moves all extremities Results - Labs CBC & Chem 7: 07/26/18 18:49 07/26/18 18:49 Labs: Laboratory Last Values WBC 8.2 K/mm3 (4.5-11.0) 07/26/18 18:49 RBC 4.69 M/mm3 (3.65-5.03) 07/26/18 18:49 Hgb 13.9 gm/dl (10.1-14.3) 07/26/18 18:49 Hct 41.9 % (30.3-42.9) 07/26/18 18:49 MCV 89 fl (79-97) 07/26/18 18:49 MCH 30 pg (28-32) 07/26/18 18:49 MCHC 33 % (30-34) 07/26/18 18:49 RDW 15.2 % (13.2-15.2) 07/26/18 18:49 Plt Count 262 K/mm3 (140-440) 07/26/18 18:49 Lymph % (Auto) 21.7 % (13.4-35.0) 07/26/18 18:49 [place] % (Auto) 4.9 % (0.0-7.3) 07/26/18 18:49 Eos % (Auto) 3.4 % (0.0-4.3) 07/26/18 18:49 Baso % (Auto) 0.9 % (0.0-1.8) 07/26/18 18:49 Lymph # 1.8 K/mm3 (1.2-5.4) 07/26/18 18:49 [place] # 0.4 K/mm3 (0.0-0.8) 07/26/18 18:49 Eos # 0.3 K/mm3 (0.0-0.4) 07/26/18 18:49 Baso # 0.1 K/mm3 (0.0-0.1) 07/26/18 18:49 Seg Neutrophils % 69.1 % (40.0-70.0) 07/26/18 18:49 Seg Neutrophils # 5.6 K/mm3 (1.8-7.7) 07/26/18 18:49 D-Dimer 149.20 ng/mlDDU (0-234) 07/26/18 19:48 Sodium 142 mmol/L (137-145) 07/26/18 18:49 Potassium 3.8 mmol/L (3.6-5.0) 07/26/18 18:49 Chloride 103.0 mmol/L (98-107) 07/26/18 18:49 Carbon Dioxide 29 mmol/L (22-30) 07/26/18 18:49 Anion Gap 14 mmol/L 07/26/18 18:49 BUN 9 mg/dL (7-17) 07/26/18 18:49 Creatinine 0.7 mg/dL (0.7-1.2) 07/26/18 18:49 Estimated GFR > 60 ml/min 07/26/18 18:49 BUN/Creatinine Ratio 13 % 07/26/18 18:49 Glucose 141 mg/dL (65-100) H 07/26/18 18:49 POC Glucose 246 (70-105) H 07/29/18 08:00 Calcium 9.4 mg/dL (8.4-10.2) 07/26/18 18:49 Magnesium 1.70 mg/dL (1.7-2.3) 07/26/18 19:48 Troponin T < 0.010 ng/mL (0.00-0.029) 07/26/18 19:48 NT-Pro-B Natriuret Pep 105.3 pg/mL (0-900) 07/26/18 19:48 Nutrition/Malnutrition Assess - Dietary Evaluation Nutrition/Malnutrition Findings: Nutrition Notes Start: 07/27/18 14:04 Freq: Status: Active Protocol: Document 07/27/18 14:04 RM (Rec: 07/27/18 14:06 [email or web address]) Nutrition Notes Need for Assessment generated from: geographic information systems director Initial or Follow up Brief Note Subjective/Other Information Screened for skin risk. No lorenza score or skin problems in record. Nutrition Intervention Revisit per MD consult or patient Sign Off request:
[2018-07-29] MEDS: ZESTRIL PO SCH (11:13)
[2018-07-29] MEDS: HEPARIN SUB-Q SCH ×2 (11:13→21:35)
[2018-07-29] MEDS: ATIVAN PO SCH ×2 (11:13→21:35)
[2018-07-29] MEDS: CLARITIN PO SCH (11:13)
[2018-07-29] MEDS: PROTONIX PO SCH (11:14)
[2018-07-29] MEDS: LEVAQUIN 750MG/150ML 750 MG/150 ML BAG IV SCH (11:16)
[2018-07-29] MEDS: LEXAPRO PO SCH (11:21)
--- NOTE | 2018-07-29 11:21 | Consultation ---
History of Present Illness Reason for consult: dyspnea, COPD History of present illness: Called to evaluate case of a 53-year-old old male, admitted to hospital with history of shortness of breath associated with coughing episodes and expectoration, in the context of prior diagnosis of COPD. she presented wheeze or cough increased wheezing and expectoration for the past 3-4 days prior to admission. Complaints of being dust in her home without mask protection, denies fever or chills. She still actively smoking. Reports that she had been seen once by Dr. Corbin at the office for evaluation, who started her on Trelegy and albuterol inhalers. She does continue Trelegy, "because it made my throat hurt". She was also ordered a sleep study due to prior history of sleep apnea, results are not available at this time Chart review shows that the patient has multiple admissions for respiratory problems, recently been treated for left upper lobe pneumonia. Smoker also reportedly using marijuana.Prior admission ABGs did not show any significant hypercapnia. Past History Past Medical History: COPD, other (DIMITRIOS) Medications and Allergies Allergies Allergy/AdvReac Type Severity Reaction Status Date / Time Penicillins Allergy Angioedema Verified 07/10/16 17:11 prednisone Allergy Unknown Verified 07/10/16 17:11 bupropion HCl AdvReac Unknown Verified 07/10/16 17:11 [From Wellbutrin] divalproex sodium AdvReac Unknown Verified 07/10/16 17:11 [From Depakote] fluoxetine HCl [From Prozac] AdvReac Unknown Verified 07/10/16 17:11 lithium AdvReac Unknown Verified 07/10/16 17:11 Home Medications Medication Instructions Recorded Confirmed Last Taken Type Escitalopram Oxalate [Lexapro] 20 mg PO DAILY 05/20/18 07/27/18 07/04/18 History 20 mg Insulin Aspart Protam & Aspart 15 units SUB-Q TID 05/20/18 07/27/18 07/04/18 History [NovoLOG Mix 70-30 Flexpen] 15 mg LORazepam [Ativan] 1 mg PO BID 05/20/18 07/27/18 07/04/18 History 1 mg Lisinopril 20 mg PO DAILY 05/20/18 07/27/18 07/04/18 History 20 mg oxyCODONE /ACETAMINOPHEN [Percocet 1 tab PO Q6HR PRN 05/20/18 07/27/18 06/24/18 History 5/325 mg] 1 tab ALBUTEROL Inhaler(NF) [VENTOLIN 1 puff IH QID PRN #1 inha 05/23/18 07/27/18 06/21/18 Rx Inhaler(NF)] 1 puff Loratadine [Claritin] 10 mg PO QDAY #10 tablet 05/23/18 07/27/18 06/24/18 Rx 10 mg Omeprazole Magnesium [PriLOSEC Otc] 20 mg PO DAILY #30 tablet. 05/23/18 07/27/18 07/04/18 Rx 20 mg guaiFENesin [Robitussin] 200 mg PO Q4H PRN 10 Days 05/23/18 07/27/18 06/24/18 Rx oral.liqd 200 mg Active Meds: Active Medications Acetaminophen (Tylenol) 650 mg PO Q4H PRN PRN Reason: Fever >101 Last Admin: 07/27/18 00:58 Dose: 650 mg Documented by: Albuterol (Proventil) 2.5 mg IH QIDRT PRN PRN Reason: Shortness Of Breath Last Admin: 07/29/18 03:07 Dose: 2.5 mg Documented by: Albuterol/Ipratropium (Duoneb *Not For Prn Use*) 1 ampul IH QIDRT [facility] Last Admin: 07/29/18 07:17 Dose: 1 ampul Documented by: Dextrose (D50w (25gm) Syringe) 50 ml IV PRN PRN PRN Reason: Hypoglycemia Escitalopram Oxalate (Lexapro) 20 mg PO DAILY [facility] Last Admin: 07/28/18 09:41 Dose: 20 mg Documented by: Guaifenesin (Robitussin) 200 mg PO Q4H PRN PRN Reason: Cough Last Admin: 07/29/18 03:06 Dose: 200 mg Documented by: Heparin Sodium (Porcine) (Heparin) 5,000 unit SUB-Q Q12HR [facility] Last Admin: 07/28/18 21:47 Dose: 5,000 unit Documented by: Levofloxacin/Dextrose (Levaquin 750mg/150ml) 750 mg in 150 mls @ 100 mls/hr IV Q24HR [facility]; Protocol Last Admin: 07/28/18 09:32 Dose: 100 mls/hr Documented by: Insulin Human Isoph/Insulin Regular (Humulin 70/30) 15 unit SUB-Q TIDWM [facility] Last Admin: 07/29/18 08:39 Dose: 15 unit Documented by: Insulin Human Regular (Humulin R) 0 units SUB-Q AC [facility]; Protocol Last Admin: 07/29/18 08:40 Dose: 2 units Documented by: Insulin Human Regular (Humulin R) 0 units SUB-Q QHS [facility]; Protocol Last Admin: 07/28/18 21:57 Dose: 3 units Documented by: Lisinopril (Zestril) 20 mg PO DAILY [facility] Last Admin: 07/28/18 09:31 Dose: 20 mg Documented by: Loratadine (Claritin) 10 mg PO QDAY [facility] Last Admin: 07/28/18 09:31 Dose: 10 mg Documented by: Lorazepam (Ativan) 1 mg PO BID [facility] Last Admin: 07/28/18 21:43 Dose: 1 mg Documented by: Methylprednisolone Sodium Succinate (Solu-Medrol) 60 mg IV Q8HR [facility] Last Admin: 07/29/18 06:04 Dose: 60 mg Documented by: Ondansetron HCl (Zofran) 4 mg IV Q8H PRN PRN Reason: Nausea And Vomiting Oxycodone/Acetaminophen (Percocet 5/325) 1 tab PO Q4H PRN PRN Reason: Pain, Moderate (4-6) Last Admin: 07/29/18 03:09 Dose: 1 tab Documented by: Pantoprazole Sodium (Protonix) 20 mg PO QDAY [facility] Last Admin: 07/28/18 09:31 Dose: 20 mg Documented by: Review of Systems Constitutional: weight gain Physical Examination Vital signs: Vital Signs BP 135/67 07/26/18 18:29 General appearance: alert, other (morbidly obese) Eyes: non-icteric ENT: oropharynx moist Neck: supple, no JVD Ascultation: Bilateral: diminished breath sounds Cardiovascular: regular rate and rhythm Gastrointestinal: normoactive bowel sounds, non-distended Integumentary: normal Extremities: no cyanosis, no edema, no ischemia or petechiae Musculoskeletal: no deformities normal mental status, non-focal exam, CN II-XII normal, motor strength normal and mood appropriate, affect normal Results - Laboratory Findings CBC and BMP: 07/26/18 18:49 07/26/18 18:49 PT/INR, D-dimer D-Dimer 149.20 ng/mlDDU (0-234) 07/26/18 19:48 Abnormal lab findings: Abnormal Labs 07/26/18 07/27/18 07/27/18 18:49 00:22 07:43 Glucose 141 H POC Glucose 264 H 234 H 07/27/18 07/27/18 07/27/18 11:55 16:51 22:04 Glucose POC Glucose 247 H 207 H 363 H 07/28/18 07/28/18 07/28/18 07:40 11:21 15:56 Glucose POC Glucose 289 H 292 H 281 H 07/28/18 07/29/18 21:32 08:00 Glucose POC Glucose 274 H 246 H Assessment and Plan Asthmatic bronchitis/COPD exacerbation. Tobacco abuse. Most likely triggering exacerbation DIMITRIOS per history. No additional sleep data at this time Morbid obesity Recommendations Albuterol 2.5 milligram nebulizations every 4-6 hours with or without ipratropium Solu-Medrol 40-60 mg IV every 6-8 hours Oxygen support via nasal cannula or mask to maintain oximetry over 92% Smoking cessation discussed in detail Weight reduction program DVT prophylaxis We'll try to get copy of the sleep study data or report for further comments Discussed with patient in detail. All questions answered. Thanks we'll follow-up
[2018-07-30] MEDS: PROVENTIL IH PRN (05:27)
[2018-07-30] MEDS: PERCOCET 5/325 PO PRN ×3 (05:59→15:49)
[2018-07-30] MEDS: SOLU-Medrol IV SCH ×2 (05:59→18:19)
[2018-07-30] MEDS: ROBITUSSIN PO PRN ×2 (06:03→15:34)
[2018-07-30 06:41] LABS: Basophils % (Auto) 0.3 % (0.0-1.8); Hematocrit 41.6 % (30.3-42.9); Hemoglobin 13.7 gm/dl (10.1-14.3); Lymphocytes # (Auto) 0.8 K/mm3 (1.2-5.4); Lymphocytes % (Auto) 8.3 % (13.4-35.0); Mean Corpuscular HGB Conc 33 % (30-34); Mean Corpuscular Volume 89 fl (79-97); Monocytes # (Auto) 0.4 K/mm3 (0.0-0.8); Monocytes % (Auto) 4.2 % (0.0-7.3); Platelet Count 295 K/mm3 (140-440); Red Blood Count 4.67 M/mm3 (3.65-5.03); Red Cell Distribution Width 15.7 % (13.2-15.2)
[2018-07-30 06:58] LABS: BUN/Creatinine Ratio 23; Blood Urea Nitrogen 16 mg/dL (7-17); Calcium 9.7 mg/dL (8.4-10.2); Hemolysis Index 2
[2018-07-30] MEDS: DUONEB *Not for PRN Use IH SCH ×3 (07:42→15:40)
[2018-07-30] MEDS: HumuLIN R SUB-Q SCH ×3 (08:23→18:15)
--- NOTE | 2018-07-30 09:33 | Discharge Summary ---
Providers - Providers Date of Admission: 07/26/18 22:50 Date of discharge: 07/30/18 Attending physician: SEKOU BLAKELY 07/29/18 10:27 Consult to Physician [CONS] Routine Comment: Consulting Provider: CHAD CONNER Physician Instructions: Reason For Exam: copd, resp failure Primary care physician: BETO MCKEON Hospitalization Reason for admission: copd exac Condition: Fair Hospital course: 53-year-old old male, admitted to hospital with history of shortness of breath associated with coughing episodes and expectoration, in the context of prior diagnosis of COPD. She presented with increased wheezing and expectoration for the past 3-4 days prior to admission. Complaints of being dust in her home without mask protection, denies fever or chills. She still actively smokes. The patient was admitted with diagnosis of acute on chronic hypoxic respiratory failure secondary to acute COPD exacerbation. Patient was treated with bronchodilators/nebulizer treatments and systemic steroids with IV Solu-Medrol. Patient was counseled on tobacco cessation with regards to her tobacco abuse. The patient was seen by pulmonary consultation who will attempt to try to get a copy of the sleep study report prior to discharge. However, patient does not appear to be compliant with her Trilogy because she states that her sore throat. Patient states that she feels back to her baseline with regards to her respiratory status. Therefore, patient will be discharged home. Dedicated discharge of 32 minutes. Disposition: -01 TO HOME OR SELFCARE Time spent for discharge: 32 - Discharge Diagnoses (1) COPD exacerbation Status: Acute (2) Morbid obesity with BMI of 50.0-59.9, adult Status: Acute (3) Obesity hypoventilation syndrome Status: Acute (4) Oxygen dependent Status: Chronic (5) Acute exacerbation of chronic obstructive pulmonary disease (COPD) Status: Acute (6) Acute on chronic respiratory failure with hypoxia Status: Acute (7) Nicotine dependence unspecified, with withdrawal Status: Acute Qualifiers: Nicotine product type: cigarettes Qualified Code(s): F17.213 - Nicotine dependence, cigarettes, with withdrawal (8) Diabetes mellitus type 2 in obese Status: Chronic Core Measure Documentation - Palliative Care Palliative Care/ Comfort Measures: Not Applicable - Core Measures Any of the following diagnoses?: none Exam - Constitutional Vitals: Temp Pulse Resp BP Pulse Ox 98.1 F 81 20 157/89 95 07/30/18 05:13 07/30/18 07:42 07/30/18 07:42 07/30/18 05:58 07/30/18 07:42 General appearance: Present: no acute distress, well-nourished - EENT Eyes: Present: PERRL ENT: hearing intact, clear oral mucosa - Neck Neck: Present: supple, normal ROM - Respiratory Respiratory effort: normal Respiratory: bilateral: CTA - Cardiovascular Heart Sounds: Present: S1 & S2. Absent: rub, click - Extremities Extremities: pulses symmetrical, No edema Peripheral Pulses: within normal limits - Abdominal General gastrointestinal: Present: soft, non-tender, non-distended, normal bowel sounds Female genitourinary: Present: normal - Integumentary Integumentary: Present: clear, warm, dry - Musculoskeletal Musculoskeletal: gait normal, strength equal bilaterally - Psychiatric Psychiatric: appropriate mood/affect, intact judgment & insight - Neurologic Neurologic: CNII-XII intact, moves all extremities Plan Activity: advance as tolerated Weight Bearing Status: Weight Bear as Tolerated Diet: diabetic Follow up with: SHILA CALL MD [Staff Physician] - 7 Days BETO MCKEON MD [Primary Care Provider] - 7 Days CAROLE ESTRADA MD [Staff Physician] - 7 Days Prescriptions: LORazepam [Ativan] 1 mg PO BID #12 tablet Loratadine [Claritin] 10 mg PO QDAY #10 tablet Escitalopram Oxalate [Lexapro] 20 mg PO DAILY #30 tablet Lisinopril 20 mg PO DAILY #30 tablet Insulin Aspart Protam & Aspart [NovoLOG Mix 70-30 Flexpen] 15 units SUB-Q TID 30 Days insuln.pen oxyCODONE /ACETAMINOPHEN [Percocet 5/325 mg] 1 tab PO Q6HR PRN #12 tablet PRN Reason: Pain Omeprazole Magnesium [PriLOSEC Otc] 20 mg PO DAILY #30 tablet.[address] thomasaiFENesin [Robitussin] 200 mg PO Q4H PRN 20 Days oral.liqd PRN Reason: Cough guaiFENesin [Robitussin] 200 mg PO Q4H PRN 10 Days oral.liqd PRN Reason: Cough ALBUTEROL Inhaler(NF) [VENTOLIN Inhaler(NF)] 1 puff IH QID PRN #1 inha PRN Reason: Shortness Of Breath
[2018-07-30] MEDS: ATIVAN PO SCH (11:00)
[2018-07-30] MEDS: PROTONIX PO SCH (11:01)
[2018-07-30] MEDS: CLARITIN PO SCH (11:01)
[2018-07-30] MEDS: LEVAQUIN 750MG/150ML 750 MG/150 ML BAG IV SCH (11:03)
[2018-07-30] MEDS: ZESTRIL PO SCH (11:04)
--- NOTE | 2018-07-30 11:18 | Progress Note ---
Assessment and Plan Asthmatic bronchitis/COPD exacerbation. Controlled Tobacco abuse. Most likely triggering exacerbation DIMITRIOS per history. No additional sleep data at this time Morbid obesity Recommendations Ambulate patient and monitor oximetry. Add portable oxygen 2 L/m if oximetry below 89% on room air. Update influenza and pneumonia vaccination, if not completed already. Candidate for pulmonary rehabilitation Outpatient pulmonary evaluation, PFT workup for COPD severity stratification Inhaler therapy including LAMA, LABA/ICS therapy, per GOLD guidelines. Recommend Symbicort and Spiriva at this point. Nutritional support, weight reduction diet. Reevaluate smoking cessation again with the patient Regarding the sleep study status, I recommended that she call the office on Thursday. I am assuming that her PSG was positive for DIMITRIOS, she needs to be scheduled for CPAP titration next week. Discussed with the patient detail. We'll also notify the office staff for follow-up on this She is also scheduled to follow with Dr. Corbin We'll sign off Subjective Date of service: 07/30/18 Interval history: Feels better today. She was able to walk the hallway yesterday and this morning still occasional wheezing Objective Vital Signs - 12hr 07/30/18 07/30/18 07/30/18 05:13 05:20 05:29 Temperature 98.1 F Pulse Rate 80 Pulse Rate [ 88 95 H Anterior Bilateral Throughout] Respiratory 18 Rate Respiratory 22 20 Rate [Anterior Bilateral Throughout] Blood Pressure 173/82 O2 Sat by Pulse 95 Oximetry 07/30/18 07/30/18 07/30/18 05:58 07:42 07:52 Temperature Pulse Rate 81 Pulse Rate [ 81 90 Anterior Bilateral Throughout] Respiratory Rate Respiratory 20 20 Rate [Anterior Bilateral Throughout] Blood Pressure 157/89 O2 Sat by Pulse 96 95 Oximetry 07/30/18 11:04 Temperature Pulse Rate Pulse Rate [ Anterior Bilateral Throughout] Respiratory Rate Respiratory Rate [Anterior Bilateral Throughout] Blood Pressure 170/93 O2 Sat by Pulse Oximetry Constitutional: alert, other (morbidly obese) Eyes: non-icteric ENT: oropharynx moist Neck: supple, no JVD Ascultation: Bilateral: diminished breath sounds (mostly clear with sporadic wheeze) Cardiovascular: regular rate and rhythm Gastrointestinal: normoactive bowel sounds, non-distended Integumentary: normal Extremities: no cyanosis, no edema, no ischemia or petechiae Neurologic: normal mental status, non-focal exam, CN II-XII normal, motor strength normal and Psychiatric: mood appropriate, affect normal CBC and BMP: 07/30/18 05:50 07/30/18 05:30 ABG, PT/INR, D-dimer: PT/INR, D-dimer D-Dimer 149.20 ng/mlDDU (0-234) 07/26/18 19:48 Abnormal lab findings: Abnormal Labs 07/26/18 07/27/18 07/27/18 18:49 00:22 07:43 RDW Lymph % (Auto) Lymph # Seg Neutrophils % Seg Neutrophils # Chloride Carbon Dioxide Glucose 141 H POC Glucose 264 H 234 H 07/27/18 07/27/18 07/27/18 11:55 16:51 22:04 RDW Lymph % (Auto) Lymph # Seg Neutrophils % Seg Neutrophils # Chloride Carbon Dioxide Glucose POC Glucose 247 H 207 H 363 H 07/28/18 07/28/18 07/28/18 07:40 11:21 15:56 RDW Lymph % (Auto) Lymph # Seg Neutrophils % Seg Neutrophils # Chloride Carbon Dioxide Glucose POC Glucose 289 H 292 H 281 H 07/28/18 07/29/18 07/29/18 21:32 08:00 11:23 RDW Lymph % (Auto) Lymph # Seg Neutrophils % Seg Neutrophils # Chloride Carbon Dioxide Glucose POC Glucose 274 H 246 H 292 H 07/29/18 07/29/18 07/30/18 16:39 21:00 05:30 RDW Lymph % (Auto) Lymph # Seg Neutrophils % Seg Neutrophils # Chloride 96.0 L Carbon Dioxide 31 H Glucose 290 H POC Glucose 300 H 301 H 07/30/18 05:50 RDW 15.7 H Lymph % (Auto) 8.3 L Lymph # 0.8 L Seg Neutrophils % 87.2 H Seg Neutrophils # 7.9 H Chloride Carbon Dioxide Glucose POC Glucose
[2018-07-30] MEDS: LEXAPRO PO SCH (11:40)
[2018-07-30] MEDS: HEPARIN SUB-Q SCH (11:41)
[2018-07-30 12:27] VITALS: BP 148/84
== END 2018-07-30 18:21 | disposition home health service (06) | DRG 189 ==
LOC: ED 18:17 → 3A 22:50
PROVIDERS: ADMIT Internal Medicine; ATTEND Hospitalist
DX: J96.21 Acute and chronic respiratory failure with hypoxia (principal); J44.1 Chronic obstructive pulmonary disease with (acute) exacerbation; E66.2 Morbid (severe) obesity with alveolar hypoventilation; Z68.43 Body mass index [BMI] 50.0-59.9, adult; F17.213 Nicotine dependence, cigarettes, with withdrawal; J44.0 Chronic obstructive pulmonary disease with (acute) lower respiratory infection; J20.9 Acute bronchitis, unspecified; I11.0 Hypertensive heart disease with heart failure; F12.90 Cannabis use, unspecified, uncomplicated; E11.9 Type 2 diabetes mellitus without complications; I50.9 Heart failure, unspecified; F31.9 Bipolar disorder, unspecified; F20.9 Schizophrenia, unspecified; Z99.81 Dependence on supplemental oxygen; Z90.49 Acquired absence of other specified parts of digestive tract; Z71.3 Dietary counseling and surveillance; Z88.0 Allergy status to penicillin; Z88.8 Allergy status to other drugs, medicaments and biological substances; Z88.6 Allergy status to analgesic agent; Z79.51 Long term (current) use of inhaled steroids; Z79.899 Other long term (current) drug therapy; Z79.4 Long term (current) use of insulin; Z71.6 Tobacco abuse counseling; Z98.1 Arthrodesis status
CPT/HCPCS: 36415; 71045; 80048; 82962; 83735; 83880; 84484; 85025; 85379; 93005; 93010; 94640; 94760; G0378; J1644; J1815; J1956; J2270; J2405; J2930

== ENCOUNTER 2018-08-11 04:50 | Emergency (ER) | payer MEDICARE ==
[2018-08-11 04:59] VITALS: BP 121/86
[2018-08-11] MEDS ORDERED: NORCO 5/325 PO ONE (05:59)
[2018-08-11] MEDS ORDERED: IBUPROFEN PO ONE (05:59)
--- NOTE | 2018-08-11 06:23 | Emergency Department Report ---
ED General Adult HPI - General Chief complaint: Pain General Stated complaint: BODY PAIN Time Seen by Provider: 08/11/18 06:05 Source: patient Mode of arrival: Wheelchair Limitations: No Limitations - History of Present Illness Initial comments: Patient presents for generalized pain patient has a history of fibromyalgia states he was unable to fill her oxycodone but has a prescription in her possession so she calls almost immediate pain medication I have discussed this with the patient will give patient 1 oxycodone with ibuprofen patient was DC'd to home with prescription this morning patient of Dr. Kuhn tomorrow patient denies known injury or fall trauma . Prescription verified on [employer] system. Onset/Timin -: year(s) Location: back, upper extremity, lower extremity Radiation: non-radiation Severity scale (0 -10): 9 Quality: aching Consistency: constant Improves with: other (oxycodone) Worsens with: none Associated Symptoms: denies other symptoms Treatments Prior to Arrival: none - Related Data Previous Rx's Medication Instructions Recorded Last Taken Type ALBUTEROL Inhaler(NF) [VENTOLIN 1 puff IH QID PRN #1 inha 07/30/18 Unknown Rx Inhaler(NF)] ALBUTEROL NEB's [Proventil 0.083% 2.5 mg IH QIDRT PRN nebu 07/30/18 Unknown Rx NEBS] Escitalopram Oxalate [Lexapro] 20 mg PO DAILY #30 tablet 07/30/18 Unknown Rx Escitalopram [Lexapro] 20 mg PO DAILY tablet 07/30/18 Unknown Rx Insulin Aspart Protam & Aspart 15 units SUB-Q TID 30 Days 07/30/18 Unknown Rx [NovoLOG Mix 70-30 Flexpen] insuln.pen Insulin NPH/Regular [NovoLIN 70/30] 15 unit SUB-Q TIDWM units 07/30/18 Unknown Rx LORazepam [Ativan] 1 mg PO BID #12 tablet 07/30/18 Unknown Rx Lisinopril 20 mg PO DAILY #30 tablet 07/30/18 Unknown Rx Loratadine [Claritin] 10 mg PO QDAY #10 tablet 07/30/18 Unknown Rx Omeprazole Magnesium [PriLOSEC Otc] 20 mg PO DAILY #30 tablet. 07/30/18 Unknown Rx Pantoprazole [Protonix TAB] 20 mg PO QDAY tablet. 07/30/18 Unknown Rx guaiFENesin [Robitussin] 200 mg PO Q4H PRN 10 Days 07/30/18 Unknown Rx oral.liqd guaiFENesin [Robitussin] 200 mg PO Q4H PRN 20 Days 07/30/18 Unknown Rx oral.liqd oxyCODONE /ACETAMINOPHEN [Percocet 1 tab PO Q4H PRN tablet 07/30/18 Unknown Rx 5/325 mg] oxyCODONE /ACETAMINOPHEN [Percocet 1 tab PO Q6HR PRN #12 tablet 07/30/18 Unknown Rx 5/325 mg] Acetaminophen [Tylenol Extra 1,000 mg PO QID PRN #30 tablet 08/11/18 Unknown Rx Strength] predniSONE [Deltasone] 40 mg PO QDAY 5 Days #10 tab 08/11/18 Unknown Rx Allergies Allergy/AdvReac Type Severity Reaction Status Date / Time Penicillins Allergy Angioedema Verified 07/10/16 17:11 prednisone Allergy Unknown Verified 07/10/16 17:11 bupropion HCl AdvReac Unknown Verified 07/10/16 17:11 [From Wellbutrin] divalproex sodium AdvReac Unknown Verified 07/10/16 17:11 [From Depakote] fluoxetine HCl [From Prozac] AdvReac Unknown Verified 07/10/16 17:11 lithium AdvReac Unknown Verified 07/10/16 17:11 ED Review of Systems ROS: Stated complaint: BODY PAIN Other details as noted in HPI Constitutional: denies: chills, fever Eyes: denies: eye pain, eye discharge, vision change ENT: denies: ear pain, throat pain Respiratory: denies: cough, shortness of breath, wheezing Cardiovascular: denies: chest pain, palpitations Endocrine: no symptoms reported Gastrointestinal: denies: abdominal pain, nausea, diarrhea Genitourinary: denies: urgency, dysuria, discharge Musculoskeletal: back pain, arthralgia, myalgia Skin: denies: rash, lesions Neurological: denies: headache, weakness, paresthesias Psychiatric: denies: anxiety, depression Hematological/Lymphatic: denies: easy bleeding, easy bruising ED Past Medical Hx - Past Medical History Previous Medical History?: Yes Hx Hypertension: Yes Hx Heart Attack/AMI: No Hx Congestive Heart Failure: Yes Hx Diabetes: Yes Hx Deep Vein Thrombosis: No Hx Pulmonary Embolism: No Hx Liver Disease: No Hx Arthritis: Yes Hx Psychiatric Treatment: Yes (Bipolar, Schziophrenia) Hx Asthma: Yes Hx COPD: Yes Hx Tuberculosis: No Additional medical history: Bronchitis, Home O2 2 liters, Morbid Obesity, - Surgical History Hx Coronary Stent: No Hx Pacemaker: No Hx Internal Defibrillator: No Additional Surgical History: spinal fusion, left hip, Hysterectomy - Social History Smoking Status: Never Smoker Substance Use Type: None - Medications Home Medications: Home Medications Medication Instructions Recorded Confirmed Last Taken Type ALBUTEROL Inhaler(NF) [VENTOLIN 1 puff IH QID PRN #1 inha 07/30/18 Unknown Rx Inhaler(NF)] ALBUTEROL NEB's [Proventil 0.083% 2.5 mg IH QIDRT PRN nebu 07/30/18 Unknown Rx NEBS] Escitalopram Oxalate [Lexapro] 20 mg PO DAILY #30 tablet 07/30/18 Unknown Rx Escitalopram [Lexapro] 20 mg PO DAILY tablet 07/30/18 Unknown Rx Insulin Aspart Protam & Aspart 15 units SUB-Q TID 30 Days 07/30/18 Unknown Rx [NovoLOG Mix 70-30 Flexpen] insuln.pen Insulin NPH/Regular [NovoLIN 70/30] 15 unit SUB-Q TIDWM units 07/30/18 Unknown Rx LORazepam [Ativan] 1 mg PO BID #12 tablet 07/30/18 Unknown Rx Lisinopril 20 mg PO DAILY #30 tablet 07/30/18 Unknown Rx Loratadine [Claritin] 10 mg PO QDAY #10 tablet 07/30/18 Unknown Rx Omeprazole Magnesium [PriLOSEC Otc] 20 mg PO DAILY #30 tablet. 07/30/18 Unknown Rx Pantoprazole [Protonix TAB] 20 mg PO QDAY tablet. 07/30/18 Unknown Rx guaiFENesin [Robitussin] 200 mg PO Q4H PRN 10 Days 07/30/18 Unknown Rx oral.liqd guaiFENesin [Robitussin] 200 mg PO Q4H PRN 20 Days 07/30/18 Unknown Rx oral.liqd oxyCODONE /ACETAMINOPHEN [Percocet 1 tab PO Q4H PRN tablet 07/30/18 Unknown Rx 5/325 mg] oxyCODONE /ACETAMINOPHEN [Percocet 1 tab PO Q6HR PRN #12 tablet 07/30/18 Unknown Rx 5/325 mg] Acetaminophen [Tylenol Extra 1,000 mg PO QID PRN #30 tablet 08/11/18 Unknown Rx Strength] predniSONE [Deltasone] 40 mg PO QDAY 5 Days #10 tab 08/11/18 Unknown Rx ED Physical Exam - General Limitations: No Limitations General appearance: alert, in no apparent distress - Head Head exam: Present: atraumatic, normocephalic - Eye Eye exam: Present: normal appearance, PERRL, EOMI - ENT ENT exam: Present: mucous membranes moist - Neck Neck exam: Present: normal inspection - Respiratory Respiratory exam: Present: normal lung sounds bilaterally. Absent: respiratory distress - Cardiovascular Cardiovascular Exam: Present: regular rate, normal rhythm. Absent: systolic murmur, diastolic murmur, rubs, gallop - GI/Abdominal GI/Abdominal exam: Present: soft - Rectal Rectal exam: Present: deferred - Extremities Exam Extremities exam: Present: normal inspection - Back Exam Back exam: Present: normal inspection, full ROM, tenderness, muscle spasm. Absent: CVA tenderness (R), CVA tenderness (L), paraspinal tenderness, vertebral tenderness, rash noted - Neurological Exam Neurological exam: Present: alert, oriented X3, CN II-XII intact, normal gait, reflexes normal - Psychiatric Psychiatric exam: Present: normal affect, normal mood, flat affect - Skin Skin exam: Present: warm, dry, intact, normal color. Absent: rash ED Course Vital Signs 08/11/18 08/11/18 04:54 04:59 Temperature 97.9 F Pulse Rate 87 Respiratory 18 22 Rate Blood Pressure 121/86 O2 Sat by Pulse 95 Oximetry ED Medical Decision Making - Medical Decision Making chronic pain musculoskeletal pain Critical care attestation.: If time is entered above; I have spent that time in minutes in the direct care of this critically ill patient, excluding procedure time. ED Disposition Clinical Impression: Musculoskeletal back pain Disposition: - TO HOME OR SELFCARE Is pt being admited?: No Does the pt Need Aspirin: No Condition: Stable Instructions: Arthralgia (ED) Prescriptions: predniSONE [Deltasone] 40 mg PO QDAY 5 Days #10 tab Acetaminophen [Tylenol Extra Strength] 1,000 mg PO QID PRN #30 tablet PRN Reason: pain Referrals: BAM KUHN MD [Staff Physician] - 3-5 Days Forms: Work/School Release Form(ED) Time of Disposition: 06:31
== END 2018-08-11 06:50 | disposition home or self-care (01) ==
LOC: ED 04:50
DX: M54.9 Dorsalgia, unspecified (principal); I10 Essential (primary) hypertension; E11.9 Type 2 diabetes mellitus without complications; J44.9 Chronic obstructive pulmonary disease, unspecified

== ENCOUNTER 2018-08-11 21:16 | Inpatient (IN) | payer MEDICARE ==
[2018-08-11] MEDS ORDERED: ATROVENT IH ONE ×3 (21:25→21:50)
[2018-08-11] MEDS ORDERED: PROVENTIL IH ONE ×3 (21:25→21:50)
[2018-08-11] MEDS ORDERED: MAGNESIUM SULFATE 2GM/50ML 2 GM/50 ML BAG IV ONE (21:50)
[2018-08-11] MEDS ORDERED: SOLU-Medrol IV ONE (21:50)
[2018-08-11] MEDS ORDERED: ATIVAN IV ONE (22:07)
[2018-08-11] MEDS ORDERED: SUBLIMAZE IV ONE (22:14)
[2018-08-11] MEDS ORDERED: ZOFRAN IV ONE (22:14)
--- NOTE | 2018-08-11 22:21 | Emergency Department Report ---
HPI - General Chief Complaint: Dyspnea/Respdistress Time Seen by Provider: 08/11/18 21:49 - HPI HPI: Room 20 The patient is a 53-year-old female presenting with chief complaint shortness of breath. The patient states her symptoms began tonight. Patient states she's had a cough productive of yellow sputum for the past 2-3 days. Patient presents to the ED wheezing. Patient was administered albuterol nebs prior to arrival by EMS. Location: Lungs Duration: 2-3 days Quality: Shortness of breath Severity: Moderate Modifying factors: [see above] Context: [see above] Mode of transportation: [not driving] ED Past Medical Hx - Past Medical History Hx Hypertension: Yes Hx Congestive Heart Failure: Yes Hx Diabetes: Yes Hx Arthritis: Yes Hx Psychiatric Treatment: Yes (Bipolar, Schziophrenia) Hx Asthma: Yes Hx COPD: Yes Additional medical history: Bronchitis, Home O2 2 liters, Morbid Obesity, - Surgical History Additional Surgical History: spinal fusion, left hip, Hysterectomy - Family History Family history: no significant - Social History Smoking Status: Current Every Day Smoker (1/3 pack per day) Substance Use Type: Alcohol (occasional), Marijuana - Medications Home Medications: Home Medications Medication Instructions Recorded Confirmed Last Taken Type ALBUTEROL Inhaler(NF) [VENTOLIN 1 puff IH QID PRN #1 inha 07/30/18 Unknown Rx Inhaler(NF)] ALBUTEROL NEB's [Proventil 0.083% 2.5 mg IH QIDRT PRN nebu 07/30/18 Unknown Rx NEBS] Escitalopram Oxalate [Lexapro] 20 mg PO DAILY #30 tablet 07/30/18 Unknown Rx Escitalopram [Lexapro] 20 mg PO DAILY tablet 07/30/18 Unknown Rx Insulin Aspart Protam & Aspart 15 units SUB-Q TID 30 Days 07/30/18 Unknown Rx [NovoLOG Mix 70-30 Flexpen] insuln.pen Insulin NPH/Regular [NovoLIN 70/30] 15 unit SUB-Q TIDWM units 07/30/18 Unknown Rx LORazepam [Ativan] 1 mg PO BID #12 tablet 07/30/18 Unknown Rx Lisinopril 20 mg PO DAILY #30 tablet 07/30/18 Unknown Rx Loratadine [Claritin] 10 mg PO QDAY #10 tablet 07/30/18 Unknown Rx Omeprazole Magnesium [PriLOSEC Otc] 20 mg PO DAILY #30 tablet. 07/30/18 Unknown Rx Pantoprazole [Protonix TAB] 20 mg PO QDAY tablet. 07/30/18 Unknown Rx guaiFENesin [Robitussin] 200 mg PO Q4H PRN 10 Days 07/30/18 Unknown Rx oral.liqd guaiFENesin [Robitussin] 200 mg PO Q4H PRN 20 Days 07/30/18 Unknown Rx oral.liqd oxyCODONE /ACETAMINOPHEN [Percocet 1 tab PO Q4H PRN tablet 07/30/18 Unknown Rx 5/325 mg] oxyCODONE /ACETAMINOPHEN [Percocet 1 tab PO Q6HR PRN #12 tablet 07/30/18 Unknown Rx 5/325 mg] Acetaminophen [Tylenol Extra 1,000 mg PO QID PRN #30 tablet 08/11/18 Unknown Rx Strength] predniSONE [Deltasone] 40 mg PO QDAY 5 Days #10 tab 08/11/18 Unknown Rx ED Review of Systems ROS: Stated complaint: ANN Other details as noted in HPI Constitutional: denies: fever Eyes: denies: eye pain ENT: denies: throat pain Respiratory: cough, shortness of breath Cardiovascular: denies: chest pain Endocrine: no symptoms reported Gastrointestinal: denies: abdominal pain Genitourinary: denies: dysuria Musculoskeletal: myalgia Neurological: denies: headache Physical Exam - Physical Exam Vital Signs: Vital Signs 08/11/18 21:39 Pulse Rate [ 117 H Anterior] Respiratory 22 Rate [Anterior] Physical Exam: GENERAL: The patient is well-developed well-nourished female lying on stretcher not appearing to be in acute distress. [] HEENT: Normocephalic. Atraumatic. Extraocular motions are intact. Patient has moist mucous membranes. NECK: Supple. Trachea midline CHEST/LUNGS: Diffuse wheezing and rhonchi. There is no respiratory distress noted. HEART/CARDIOVASCULAR: Regular. There is tachycardia. There is no gallop rub or murmur. ABDOMEN: Abdomen is soft, nontender. Patient has normal bowel sounds. There is no abdominal distention. SKIN: There is no rash. There is no diaphoresis. NEURO: The patient is awake, alert, and oriented. The patient is cooperative. The patient has normal speech MUSCULOSKELETAL: There is no evidence of acute injury. ED Course Vital Signs 08/11/18 21:39 Pulse Rate [ 117 H Anterior] Respiratory 22 Rate [Anterior] - Reevaluation(s) Reevaluation #1: 08/12/18 00:15 Patient still audibly wheezing. Will admit the patient to the hospital for further management ED Medical Decision Making - Lab Data Result diagrams: 08/11/18 Unknown 08/11/18 Unknown - Radiology Data Radiology results: report reviewed (chest x-ray), image reviewed (chest x-ray) interpreted by me: Chest x-ray-no focal infiltrates, no pneumothorax [facility] [address] [place] [address] XRay Report Signed Patient: ERIC WELSH MR#: [id number] : 1965 Acct:[id number] Age/Sex: 53 / F ADM Date: 08/11/18 Loc: ED Attending Dr: Ordering Physician: TAMMY GROSS MD Date of Service: 08/11/18 Procedure(s): XR chest 1V ap Accession Number(s): [id number] cc: TAMMY GROSS MD Fluoro Time In Minutes: PROCEDURE: Chest. TECHNIQUE: Portable AP view. HISTORY: shortness of breath COMPARISONS: Chest 07/25/2018. FINDINGS: The heart and mediastinum appear normal. The lungs are clear and well expanded. There are some opacities at the left lung apex that I believe are outside the patient. There are no pleural effusions. The soft tissues and regional skeleton are unremarkable. IMPRESSION: Normal study. This document is electronically signed by Reyes Allen MD., August 11 2018 11:52:28 PM ET Transcribed By: MRM Dictated By: REYES ALLEN MD Electronically Authenticated By: REYES ALLEN MD Signed Date/Time: 08/11/18 9957 DD/ 26 TD/TT: 08/11/182226 - Differential Diagnosis COPD exacerbation, pneumonia, bronchitis Critical care attestation.: If time is entered above; I have spent that time in minutes in the direct care of this critically ill patient, excluding procedure time. ED Disposition Clinical Impression: COPD exacerbation, Shortness of breath Disposition: - OP ADMIT IP TO THIS HOSP Is pt being admited?: Yes Does the pt Need Aspirin: Yes Condition: Fair Instructions: Chronic Bronchitis (ED) Referrals: PRIMARY CARE,MD [Primary Care Provider] - 3-5 Days Time of Disposition: 00:15 (hospitalist paged (Dr Sophie Martinez))
[2018-08-11 22:38] LABS: Basophils % (Auto) 0.5 % (0.0-1.8); Eosinophils # (Auto) 0.1 K/mm3 (0.0-0.4); Eosinophils % (Auto) 1.5 % (0.0-4.3); Hematocrit 42.8 % (30.3-42.9); Hemoglobin 13.9 gm/dl (10.1-14.3); Lymphocytes # (Auto) 1.5 K/mm3 (1.2-5.4); Lymphocytes % (Auto) 16.7 % (13.4-35.0); Mean Corpuscular HGB Conc 33 % (30-34); Mean Corpuscular Volume 91 fl (79-97); Monocytes # (Auto) 0.4 K/mm3 (0.0-0.8); Monocytes % (Auto) 4.8 % (0.0-7.3); Platelet Count 246 K/mm3 (140-440); Red Blood Count 4.71 M/mm3 (3.65-5.03); Red Cell Distribution Width 16.6 % (13.2-15.2)
[2018-08-11 22:43] LABS: BUN/Creatinine Ratio 13; Blood Urea Nitrogen 9 mg/dL (7-17); Calcium 9.4 mg/dL (8.4-10.2); Hemolysis Index 3
--- NOTE | 2018-08-11 23:55 | XRay Report ---
PROCEDURE: Chest. TECHNIQUE: Portable AP view. HISTORY: shortness of breath COMPARISONS: Chest 07/25/2018. FINDINGS: The heart and mediastinum appear normal. The lungs are clear and well expanded. There are some opacit ies at the left lung apex that I believe are outside the patient. There are no pleural effusions. The soft tissues and regional skeleton are unremarkable. IMPRESSION: Normal study. This document is electronically signed by Reyes Ham MD., August 11 2018 11:52:28 PM ET
[2018-08-12] MEDS ORDERED: ATROVENT IH ONE (00:14)
[2018-08-12] MEDS ORDERED: PROVENTIL IH ONE (00:14)
--- NOTE | 2018-08-12 01:02 | History and Physical Report ---
History of Present Illness Date of examination: 08/12/18 History of present illness: 53-year-old woman with a history of hypertension, diabetes, COPD, CHF, bipolar, schizophrenia, chronic pain comes emergency room with complaints of shortness of breath started today. Also complaining of cough productive of yellow. She was seen earlier in the emergency room for pain meds, was also discharge on prednisone. Status post fentanyl, IV Ativan Review of systems Constitutional: no weight loss, chills, fever Ears, eyes, nose, mouth and throat: no nasal congestion, no nasal discharge, no sinus pressure, no vision change, no red eye. Neck: No neck pain or rigidity. Cardiovascular: no palpitations, chest pain Respiratory: + cough, shortness of breath Gastrointestinal: no hematochezia, abdominal pain Genitourinary : no frequency , no hematuria Musculoskeletal: no joint swelling or muscle ache Integumentary: no rash, no pruritis Neurological: no parathesias, no focal weakness Endocrine: no cold or heat intolerance, no polyuria or polydipsia Hematologic/Lymphatic: no easy bruising, no easy bleeding, no gland swelling Allergic/Immunologic: no urticaria, no angioedema. PAST MEDICAL HISTORY: hypertension, diabetes, COPD, CHF, bipolar, schizophrenia, chronic pain PAST SURGICAL HISTORY: Hysterectomy, 2, spinal fusion, shoulder SOCIAL HISTORY: Smoke 1 pack a day, social alcohol no drugs FAMILY HISTORY: Hypertension Medications and Allergies Allergies Allergy/AdvReac Type Severity Reaction Status Date / Time Penicillins Allergy Angioedema Verified 07/10/16 17:11 prednisone Allergy Unknown Verified 07/10/16 17:11 bupropion HCl AdvReac Unknown Verified 07/10/16 17:11 [From Wellbutrin] divalproex sodium AdvReac Unknown Verified 07/10/16 17:11 [From Depakote] fluoxetine HCl [From Prozac] AdvReac Unknown Verified 07/10/16 17:11 lithium AdvReac Unknown Verified 07/10/16 17:11 Home Medications Medication Instructions Recorded Confirmed Last Taken Type ALBUTEROL Inhaler(NF) [VENTOLIN 1 puff IH QID PRN #1 inha 07/30/18 Unknown Rx Inhaler(NF)] ALBUTEROL NEB's [Proventil 0.083% 2.5 mg IH QIDRT PRN nebu 07/30/18 Unknown Rx NEBS] Escitalopram Oxalate [Lexapro] 20 mg PO DAILY #30 tablet 07/30/18 Unknown Rx Escitalopram [Lexapro] 20 mg PO DAILY tablet 07/30/18 Unknown Rx Insulin Aspart Protam & Aspart 15 units SUB-Q TID 30 Days 07/30/18 Unknown Rx [NovoLOG Mix 70-30 Flexpen] insuln.pen Insulin NPH/Regular [NovoLIN 70/30] 15 unit SUB-Q TIDWM units 07/30/18 Unknown Rx LORazepam [Ativan] 1 mg PO BID #12 tablet 07/30/18 Unknown Rx Lisinopril 20 mg PO DAILY #30 tablet 07/30/18 Unknown Rx Loratadine [Claritin] 10 mg PO QDAY #10 tablet 07/30/18 Unknown Rx Omeprazole Magnesium [PriLOSEC Otc] 20 mg PO DAILY #30 tablet. 07/30/18 Unknown Rx Pantoprazole [Protonix TAB] 20 mg PO QDAY tablet. 07/30/18 Unknown Rx guaiFENesin [Robitussin] 200 mg PO Q4H PRN 10 Days 07/30/18 Unknown Rx oral.liqd guaiFENesin [Robitussin] 200 mg PO Q4H PRN 20 Days 07/30/18 Unknown Rx oral.liqd oxyCODONE /ACETAMINOPHEN [Percocet 1 tab PO Q4H PRN tablet 07/30/18 Unknown Rx 5/325 mg] oxyCODONE /ACETAMINOPHEN [Percocet 1 tab PO Q6HR PRN #12 tablet 07/30/18 Unknown Rx 5/325 mg] Acetaminophen [Tylenol Extra 1,000 mg PO QID PRN #30 tablet 08/11/18 Unknown Rx Strength] predniSONE [Deltasone] 40 mg PO QDAY 5 Days #10 tab 08/11/18 Unknown Rx Exam - Physical Exam Narrative exam: General Apperance: The patient lying in bed, breathing comfortable HEENT: Normocephalic, atraumatic. Pupils equally round and reactive to light, EOMI, no sclericterus or JVD or thyromegaly or nodule. , no carotid bruit, mucous membranes moist, no exudate or erythema Heart: S1-S2, regular is rhythm Lungs: Wheezing bilaterally, breathing comfortable Abdomen: Positive bowel sounds, soft, nontender, nondistended, no organomegaly Extremities: No edema cyanosis clubbing Skin: no rash, nodule, warm and dry Neuro: Sedated but arousable - Constitutional Vitals: Temp Pulse Resp BP Pulse Ox 112 H 19 119/74 93 08/12/18 00:25 08/12/18 00:25 08/11/18 23:54 08/11/18 23:54 Results - Labs CBC & Chem 7: 08/11/18 Unknown 08/11/18 Unknown Labs: Abnormal lab results 08/11/18 08/11/18 Range/Units Unknown Unknown RDW 16.6 H (13.2-15.2) % Seg Neutrophils % 76.5 H (40.0-70.0) % Glucose 236 H (65-100) mg/dL - Imaging and Cardiology EKG: image reviewed Chest x-ray: report reviewed Assessment and Plan Assessment Respiratory failure acute on chronic COPD exacerbation Hypertension Diabetes of 2 Bipolar Schizophrenia Chronic pain Plan Admit to medicine Start nebulizer treatment, high dose IV steroids, obtain ABG and stat BIPAP check fingersticks initiate insulin sliding scale Continue appropriate outpatient medications, start DVT prophylaxis Addendum please follow med rec
[2018-08-12] MEDS ORDERED: D50W (25GM) Syringe IV PRN (01:03)
[2018-08-12] MEDS ORDERED: ZOFRAN IV PRN (01:03)
[2018-08-12] MEDS ORDERED: SODIUM CHLORIDE FLUSH SYRINGE 10 ML IV PRN (01:03)
[2018-08-12] MEDS ORDERED: TYLENOL PO PRN ×2 (01:03→14:01)
[2018-08-12] MEDS: DUONEB *Not for PRN Use IH SCH ×5 (04:51→19:50)
[2018-08-12] MEDS: SOLU-Medrol IV SCH ×3 (05:13→22:20)
[2018-08-12 08:32] LABS: Creatine Kinase MB 2.1 ng/mL (0.0-4.0)
[2018-08-12] MEDS: HumaLOG SUB-Q SCH ×4 (08:53→22:21)
[2018-08-12] MEDS ORDERED: LOVENOX SUB-Q SCH (10:00)
[2018-08-12] MEDS: LOVENOX SUB-Q SCH (10:01)
[2018-08-12] MEDS ORDERED: SOLU-Medrol IV SCH ×2 (10:08→16:00)
[2018-08-12] MEDS: SODIUM CHLORIDE FLUSH SYRINGE 10 ML IV SCH ×2 (11:12→22:21)
[2018-08-12] MEDS ORDERED: PROVENTIL IH PRN ×2 (14:01→14:39)
[2018-08-12] MEDS ORDERED: PROAIR IH PRN (14:01)
[2018-08-12] MEDS: PERCOCET 5/325 PO PRN ×2 (14:58→20:17)
[2018-08-12] MEDS: ROBITUSSIN PO PRN ×2 (14:58→20:17)
[2018-08-12] MEDS: CLARITIN PO SCH (15:00)
[2018-08-12] MEDS: ZESTRIL PO SCH (15:00)
[2018-08-12] MEDS: LEXAPRO PO SCH (15:00)
[2018-08-12] MEDS: ATIVAN PO SCH ×2 (15:00→22:20)
[2018-08-12] MEDS: PROTONIX PO SCH (15:01)
--- NOTE | 2018-08-12 15:55 | Event Note ---
Date: 08/12/18 Patient seen and examined 53-year-old woman with a history of hypertension, diabetes, COPD, CHF, bipolar, schizophrenia, chronic pain comes emergency room with complaints of shortness of breath started today. Will cont current Mx and plan as dictated in H and P.
[2018-08-12] MEDS ORDERED: ASPART SUB-Q SCH (20:00)
[2018-08-12] MEDS ORDERED: INSULIN ASPART PROTAM SUB-Q SCH (20:00)
[2018-08-12] MEDS: LEVAQUIN 750MG/150ML 750 MG/150 ML BAG IV SCH (20:17)
[2018-08-12] MEDS: MUCINEX ER PO SCH (22:20)
[2018-08-13] MEDS: ROBITUSSIN PO PRN ×4 (00:06→20:25)
[2018-08-13] MEDS: PERCOCET 5/325 PO PRN ×5 (00:06→20:25)
[2018-08-13] MEDS: DUONEB *Not for PRN Use IH SCH ×4 (01:20→20:56)
[2018-08-13] MEDS: SOLU-Medrol IV SCH ×3 (05:31→21:58)
[2018-08-13 05:51] LABS: Hematocrit 39.9 % (30.3-42.9); Mean Corpuscular HGB Conc 33 % (30-34); Mean Corpuscular Volume 91 fl (79-97); Platelet Count 236 K/mm3 (140-440); Red Blood Count 4.37 M/mm3 (3.65-5.03); Red Cell Distribution Width 16.8 % (13.2-15.2)
[2018-08-13 06:14] LABS: BUN/Creatinine Ratio 19; Blood Urea Nitrogen 15 mg/dL (7-17); Calcium 9.7 mg/dL (8.4-10.2); Hemolysis Index 17
[2018-08-13 08:14] LABS: Band Neutrophils # (Manual) 1.6 K/mm3; Basophils % (Manual) 0 % (0.0-1.8); Eosinophils % (Manual) 0 % (0.0-4.3); Total Cells Counted 100
[2018-08-13 08:15] LABS: RBC Morphology Normal
[2018-08-13] MEDS: HumaLOG SUB-Q SCH ×4 (09:10→21:58)
[2018-08-13] MEDS: LEXAPRO PO SCH (09:28)
[2018-08-13] MEDS: LEVAQUIN 750MG/150ML 750 MG/150 ML BAG IV SCH (09:28)
[2018-08-13] MEDS: LOVENOX SUB-Q SCH (09:28)
[2018-08-13] MEDS: ZESTRIL PO SCH (09:28)
[2018-08-13] MEDS: PROTONIX PO SCH (09:28)
[2018-08-13] MEDS: MUCINEX ER PO SCH ×2 (09:29→21:58)
[2018-08-13] MEDS: CLARITIN PO SCH (09:29)
[2018-08-13] MEDS: ATIVAN PO SCH ×2 (09:29→21:58)
[2018-08-13] MEDS: SODIUM CHLORIDE FLUSH SYRINGE 10 ML IV SCH ×2 (09:38→21:59)
--- NOTE | 2018-08-13 17:33 | Progress Note ---
Assessment and Plan Respiratory failure acute on chronic Acute COPD exacerbation Hypertension Diabetes of 2 Bipolar disorder Schizophrenia Chronic pain syndrom Plan Monitor at medicine cont nebulizer treatment, high dose IV steroids, BIPAP as needed, IV abx check fingersticks and insulin sliding scale Continue outpatient medications, cont DVT prophylaxis Subjective Date of service: 08/13/18 Interval history: Patient seen and examined States her breathing much better But not at baseline Objective - Exam Narrative Exam: General Apperance: The patient lying in bed, breathing comfortable, morbidly obese HEENT: Normocephalic, atraumatic. Pupils equally round and reactive to light, EOMI, no sclericterus or JVD or thyromegaly or nodule. , no carotid bruit, mucous membranes moist, no exudate or erythema Heart: S1-S2, regular is rhythm Lungs: Wheezing bilaterally, breathing comfortable Abdomen: Positive bowel sounds, soft, nontender, nondistended, no organomegaly Extremities: No edema cyanosis clubbing Skin: no rash, nodule, warm and dry Neuro: Sedated but arousable - Constitutional Vitals: Vital Signs - 12hr 08/13/18 08/13/18 08/13/18 07:46 07:56 08:38 Temperature Pulse Rate 92 H Pulse Rate [ 85 100 H Anterior Bilateral Throughout] Respiratory Rate Respiratory 20 20 Rate [Anterior Bilateral Throughout] Blood Pressure 122/68 O2 Sat by Pulse 95 94 Oximetry 08/13/18 08/13/18 08/13/18 09:29 10:00 11:00 Temperature Pulse Rate 80 Pulse Rate [ Anterior Bilateral Throughout] Respiratory 15 22 Rate Respiratory Rate [Anterior Bilateral Throughout] Blood Pressure O2 Sat by Pulse Oximetry 08/13/18 08/13/18 08/13/18 11:02 13:14 13:24 Temperature 97.5 F L Pulse Rate 82 Pulse Rate [ 99 H 94 H Anterior Bilateral Throughout] Respiratory 20 Rate Respiratory 20 20 Rate [Anterior Bilateral Throughout] Blood Pressure 147/87 O2 Sat by Pulse 93 Oximetry 08/13/18 08/13/18 14:46 16:25 Temperature 98.1 F Pulse Rate 86 Pulse Rate [ Anterior Bilateral Throughout] Respiratory 15 20 Rate Respiratory Rate [Anterior Bilateral Throughout] Blood Pressure 156/87 O2 Sat by Pulse 95 Oximetry - Labs CBC & Chem 7: 08/13/18 05:06 08/13/18 05:06 Labs: Abnormal lab results 08/12/18 08/12/18 08/13/18 Range/Units 16:36 20:48 05:06 WBC 16.4 H (4.5-11.0) K/mm3 RDW 16.8 H (13.2-15.2) % Seg Neuts % (Manual) 81.0 H (40.0-70.0) % Lymphocytes % (Manual) 4.0 L (13.4-35.0) % Seg Neutrophils # Man 13.3 H (1.8-7.7) K/mm3 Lymphocytes # (Manual) 0.7 L (1.2-5.4) K/mm3 Glucose (65-100) mg/dL POC Glucose 295 H 250 H (70-105) 08/13/18 08/13/18 08/13/18 Range/Units 05:06 08:42 11:07 WBC (4.5-11.0) K/mm3 RDW (13.2-15.2) % Seg Neuts % (Manual) (40.0-70.0) % Lymphocytes % (Manual) (13.4-35.0) % Seg Neutrophils # Man (1.8-7.7) K/mm3 Lymphocytes # (Manual) (1.2-5.4) K/mm3 Glucose 326 H (65-100) mg/dL POC Glucose 325 H 333 H (70-105) 08/13/18 Range/Units 16:29 WBC (4.5-11.0) K/mm3 RDW (13.2-15.2) % Seg Neuts % (Manual) (40.0-70.0) % Lymphocytes % (Manual) (13.4-35.0) % Seg Neutrophils # Man (1.8-7.7) K/mm3 Lymphocytes # (Manual) (1.2-5.4) K/mm3 Glucose (65-100) mg/dL POC Glucose 268 H (70-105)
[2018-08-14] MEDS: PERCOCET 5/325 PO PRN ×5 (00:33→17:51)
[2018-08-14] MEDS: ROBITUSSIN PO PRN ×5 (00:33→17:51)
[2018-08-14] MEDS: DUONEB *Not for PRN Use IH SCH ×4 (03:05→19:31)
[2018-08-14] MEDS: HumaLOG SUB-Q SCH ×3 (08:52→17:50)
[2018-08-14] MEDS: PROTONIX PO SCH (08:59)
[2018-08-14] MEDS: CLARITIN PO SCH (08:59)
[2018-08-14] MEDS: ATIVAN PO SCH (08:59)
[2018-08-14] MEDS: LEXAPRO PO SCH (08:59)
[2018-08-14] MEDS: ZESTRIL PO SCH (08:59)
[2018-08-14] MEDS: LOVENOX SUB-Q SCH (09:00)
[2018-08-14] MEDS: MUCINEX ER PO SCH (09:00)
[2018-08-14] MEDS: SODIUM CHLORIDE FLUSH SYRINGE 10 ML IV SCH (09:00)
[2018-08-14] MEDS: SOLU-Medrol IV SCH (09:00)
[2018-08-14] MEDS: LEVAQUIN 750MG/150ML 750 MG/150 ML BAG IV SCH (09:01)
[2018-08-14 12:17] VITALS: BP 186/97
--- NOTE | 2018-08-14 14:36 | Discharge Summary ---
Providers - Providers Date of Admission: 08/12/18 01:03 Date of discharge: 08/14/18 Attending physician: KATIE MCKEON Primary care physician: GENTRY PEREZ MD Hospitalization Reason for admission: SOB Condition: Fair Pertinent studies: CXR Hospital course: 53-year-old woman with a history of hypertension, diabetes, COPD, CHF, bipolar, schizophrenia, chronic pain came to emergency room with complaints of shortness of breath. She was admitted for COPD exacerbation. Placed on nebulizer treatment, high dose IV steroids, BIPAP as needed, IV abx. followed BG with fingersticks and placed on insulin sliding scale. Placed on outpatient medications, DVT prophylaxis. Her symptom improved with supportive care and then was discharged home in stable condition. Discharge diagnosis: Respiratory failure acute on chronic Acute COPD exacerbation Hypertension Diabetes of 2 Bipolar disorder Schizophrenia Chronic pain syndrome Disposition: TO HOME OR SELFCARE Time spent for discharge: 34 minutes Core Measure Documentation - Palliative Care Palliative Care/ Comfort Measures: Not Applicable - Core Measures Any of the following diagnoses?: none Exam - Physical Exam Narrative exam: General Apperance: The patient lying in bed, breathing comfortable, morbidly obese HEENT: Normocephalic, atraumatic. Pupils equally round and reactive to light, EOMI, no sclericterus or JVD or thyromegaly or nodule. , no carotid bruit, mucous membranes moist, no exudate or erythema Heart: S1-S2, regular is rhythm Lungs: no Wheezing bilaterally, breathing comfortable Abdomen: Positive bowel sounds, soft, nontender, nondistended, no organomegaly Extremities: No edema cyanosis clubbing Skin: no rash, nodule, warm and dry Neuro: Sedated but arousable - Constitutional Vitals: Temp Pulse Resp BP Pulse Ox 97.2 F L 84 20 186/97 91 08/14/18 12:16 08/14/18 12:16 08/14/18 12:16 08/14/18 12:16 08/14/18 12:16 Plan Activity: advance as tolerated Weight Bearing Status: Non-Weight Bearing Diet: diabetic Durable Medical Equipment Needed Upon Discharge: Oxygen Follow up with: PRIMARY CAREMD [Primary Care Provider] - 3-5 Days Prescriptions: levoFLOXacin [Levaquin] 750 mg PO QDAY #4 tablet oxyCODONE /ACETAMINOPHEN [Percocet 5/325 mg] 1 tab PO Q12HR PRN #5 tablet PRN Reason: Pain Budesonide/Formoterol Fumarate [Symbicort 160-4.5 Mcg Inhaler] 10.2 gm IH BID 30 Days #1 hfa.aer.ad ALBUTEROL Inhaler(NF) [VENTOLIN Inhaler(NF)] 1 puff IH QID PRN #1 inha PRN Reason: Shortness Of Breath ALBUTEROL NEB's [Proventil 0.083% NEBS] 2.5 mg IH QIDRT PRN 30 Days nebu PRN Reason: Shortness Of Breath
== END 2018-08-14 20:14 | disposition home or self-care (01) | DRG 189 ==
LOC: ED 21:16 → 4A 08-12 01:03
PROVIDERS: ADMIT Internal Medicine; ATTEND Internal Medicine
PROC: 5A09457 Assistance with Respiratory Ventilation, 24-96 Consecutive Hours, Continuous Positive Airway Pressure (ICD-10-PCS; principal; 2018-08-12)
PROC: 4A033R1 Measurement of Arterial Saturation, Peripheral, Percutaneous Approach (ICD-10-PCS; 2018-08-12)
DX: J96.20 Acute and chronic respiratory failure, unspecified whether with hypoxia or hypercapnia (principal); J44.1 Chronic obstructive pulmonary disease with (acute) exacerbation; Z68.43 Body mass index [BMI] 50.0-59.9, adult; F31.9 Bipolar disorder, unspecified; F20.9 Schizophrenia, unspecified; G89.4 Chronic pain syndrome; E11.9 Type 2 diabetes mellitus without complications; I11.0 Hypertensive heart disease with heart failure; I50.9 Heart failure, unspecified; F17.200 Nicotine dependence, unspecified, uncomplicated; M19.90 Unspecified osteoarthritis, unspecified site; E66.01 Morbid (severe) obesity due to excess calories; F12.90 Cannabis use, unspecified, uncomplicated; Z82.49 Family history of ischemic heart disease and other diseases of the circulatory system; Z90.710 Acquired absence of both cervix and uterus; Z88.0 Allergy status to penicillin; Z79.4 Long term (current) use of insulin; Z79.899 Other long term (current) drug therapy; Z72.89 Other problems related to lifestyle
CPT/HCPCS: 36415; 71045; 80048; 82550; 82553; 82803; 82962; 84484; 85007; 85025; 93005; 93010; 94640; 94644; 94660; 94760; 96374; 96375; 99285; 99406; G0378; J1650; J1815; J1956; J2060; J2405; J2920; J2930; J3010; J3475

== ENCOUNTER 2018-09-14 13:27 | Inpatient (IN) | payer MEDICARE ==
[2018-09-14] MEDS ORDERED: PROVENTIL IH ONE ×2 (13:38→15:06)
[2018-09-14] MEDS ORDERED: ATROVENT IH ONE (13:40)
--- NOTE | 2018-09-14 14:55 | XRay Report ---
AP CHEST: HISTORY: Shortness of breath AP view of the chest demonstrates a normal mediastinal and cardiac contour with clear lungs and normal bony and soft tissue structures. No change since 08/11/18. IMPRESSION: Unremarkable AP chest.
[2018-09-14 15:04] LABS: Basophils # (Auto) 0.1 K/mm3 (0.0-0.1); Basophils % (Auto) 0.8 % (0.0-1.8); Eosinophils # (Auto) 0.3 K/mm3 (0.0-0.4); Eosinophils % (Auto) 3.8 % (0.0-4.3); Hematocrit 46.3 % (30.3-42.9); Hemoglobin 15.1 gm/dl (10.1-14.3); Lymphocytes # (Auto) 1.9 K/mm3 (1.2-5.4); Lymphocytes % (Auto) 24.9 % (13.4-35.0); Mean Corpuscular HGB Conc 33 % (30-34); Mean Corpuscular Volume 91 fl (79-97); Monocytes # (Auto) 0.4 K/mm3 (0.0-0.8); Monocytes % (Auto) 5.3 % (0.0-7.3); Platelet Count 268 K/mm3 (140-440); Red Blood Count 5.09 M/mm3 (3.65-5.03); Red Cell Distribution Width 15.6 % (13.2-15.2)
[2018-09-14] MEDS ORDERED: ATIVAN PO ONE (15:06)
[2018-09-14] MEDS ORDERED: SOLU-Medrol IV ONE (15:07)
[2018-09-14 15:15] LABS: INR 0.93 (0.87-1.13)
[2018-09-14 15:16] LABS: Partial Thromboplastin Time 30.5 Sec. (24.2-36.6)
[2018-09-14] MEDS ORDERED: MAGNESIUM SULFATE 2GM/50ML 2 GM/50 ML BAG IV ONE ×2 (15:18)
[2018-09-14 15:32] LABS: Alanine Aminotransferase 12 units/L (7-56); Albumin 3.8 g/dL (3.9-5); BUN/Creatinine Ratio 10; Blood Urea Nitrogen 7 mg/dL (7-17); Calcium 10.2 mg/dL (8.4-10.2); Hemolysis Index 25
[2018-09-14] MEDS ORDERED: MAGNESIUM SULFATE 1 GM in NACL 0.9% 50 ML IV ONE (16:07)
--- NOTE | 2018-09-14 16:19 | Emergency Department Report ---
ED Shortness of Breath HPI - General Chief Complaint: Dyspnea/Respdistress Stated Complaint: ANN Time Seen by Provider: 09/14/18 14:31 Source: patient, EMS Mode of arrival: Stretcher Limitations: No Limitations - History of Present Illness Initial Comments: 53 year old female with past medical history of morbid obesity, asthma, COPD with 2 L home oxygen use, CHF, diabetes, hypertension, bipolar, and schizoaffective disorder presents to the hospital with complaints of wheezing and shortness of breath 1 week worsening today. Patient states last week she had a cough productive of green sputum. She took a Z-Joe. She is not currently on steroids. Sputum is now yellow. She denies fever, calf tenderness, or leg edema. History of one intubation. PMD: Dr. Cueva. Captain'S Assistant: Dr. Corbin - Related Data Home Medications Medication Instructions Recorded Confirmed Last Taken ALBUTEROL Inhaler(NF) [VENTOLIN 2 puff IH Q4H PRN 09/14/18 09/14/18 Unknown Inhaler(NF)] ALBUTEROL NEB's [Proventil 0.083% 2.5 mg IH QID PRN 09/14/18 09/14/18 Unknown NEBS] Budesonide/Formoterol Fumarate 1 puff IH BID 09/14/18 09/14/18 Unknown [Symbicort 160-4.5 Mcg Inhaler] Escitalopram Oxalate [Lexapro] 20 mg PO QDAY 09/14/18 09/14/18 Unknown LORazepam [Ativan] 1 mg PO Q12H 09/14/18 09/14/18 09/14/18 Omeprazole 20 mg PO QDAY 09/14/18 09/14/18 Unknown oxyCODONE /ACETAMINOPHEN [Percocet 1 tab PO Q8H PRN 09/14/18 09/14/18 Unknown 5/325 mg] Previous Rx's Medication Instructions Recorded Last Taken Type Insulin Aspart Protam & Aspart 15 units SUB-Q TID 30 Days 07/30/18 Unknown Rx [NovoLOG Mix 70-30 Flexpen] insuln.pen Lisinopril 20 mg PO DAILY #30 tablet 07/30/18 Unknown Rx Loratadine [Claritin] 10 mg PO QDAY #10 tablet 07/30/18 Unknown Rx Allergies Allergy/AdvReac Type Severity Reaction Status Date / Time Penicillins Allergy Angioedema Verified 09/14/18 13:55 prednisone Allergy Unknown Verified 09/14/18 13:55 bupropion HCl AdvReac Unknown Verified 09/14/18 13:55 [From Wellbutrin] divalproex sodium AdvReac Unknown Verified 09/14/18 13:55 [From Depakote] fluoxetine HCl [From Prozac] AdvReac Unknown Verified 09/14/18 13:55 lithium AdvReac Unknown Verified 09/14/18 13:55 ED Review of Systems ROS: Stated complaint: ANN Other details as noted in HPI Comment: All other systems reviewed and negative ED Past Medical Hx - Past Medical History Previous Medical History?: Yes Hx Hypertension: Yes Hx Heart Attack/AMI: No Hx Congestive Heart Failure: Yes Hx Diabetes: Yes Hx Deep Vein Thrombosis: No Hx Pulmonary Embolism: No Hx Liver Disease: No Hx Arthritis: Yes Hx Psychiatric Treatment: Yes (Bipolar, Schzioaffective) Hx Asthma: Yes Hx COPD: Yes Hx Tuberculosis: No Additional medical history: Bronchitis, Home O2 2 liters, Morbid Obesity, - Surgical History Past Surgical History?: Yes Hx Coronary Stent: No Hx Pacemaker: No Hx Internal Defibrillator: No Additional Surgical History: spinal fusion, left hip, Hysterectomy - Social History Smoking Status: Current Every Day Smoker Substance Use Type: Alcohol, Marijuana - Medications Home Medications: Home Medications Medication Instructions Recorded Confirmed Last Taken Type Insulin Aspart Protam & Aspart 15 units SUB-Q TID 30 Days 07/30/18 09/14/18 Unknown Rx [NovoLOG Mix 70-30 Flexpen] insuln.pen Lisinopril 20 mg PO DAILY #30 tablet 07/30/18 09/14/18 Unknown Rx Loratadine [Claritin] 10 mg PO QDAY #10 tablet 07/30/18 09/14/18 Unknown Rx ALBUTEROL Inhaler(NF) [VENTOLIN 2 puff IH Q4H PRN 09/14/18 09/14/18 Unknown History Inhaler(NF)] ALBUTEROL NEB's [Proventil 0.083% 2.5 mg IH QID PRN 09/14/18 09/14/18 Unknown History NEBS] Budesonide/Formoterol Fumarate 1 puff IH BID 09/14/18 09/14/18 Unknown History [Symbicort 160-4.5 Mcg Inhaler] Escitalopram Oxalate [Lexapro] 20 mg PO QDAY 09/14/18 09/14/18 Unknown History LORazepam [Ativan] 1 mg PO Q12H 09/14/18 09/14/18 09/14/18 History Omeprazole 20 mg PO QDAY 09/14/18 09/14/18 Unknown History oxyCODONE /ACETAMINOPHEN [Percocet 1 tab PO Q8H PRN 09/14/18 09/14/18 Unknown History 5/325 mg] ED Physical Exam - General Limitations: No Limitations - Other Other exam information: General: No limitations, patient is alert in no acute distress Head exam: Atraumatic, normocephalic Eyes exam: Normal appearance ENT: Moist mucous membrane Neck exam: Normal inspection, full range of motion, no meningismus nontender Respiratory exam: Tachypnea, accessory muscle use, fair air movement, bilateral wheezing Cardiovascular: Normal rate and rhythm, anterior chest wall tenderness Abdomen: Soft, nondistended, and nontender, with normal bowel sounds, no rebound, or guarding Extremity: Full range of motion normal inspection no deformity, no calf tenderness or edema Back: Normal Inspection, full range of motion, no tenderness Neurologic: Alert, oriented x3, cranial nerves intact, no motor or sensory deficit Psychiatric: normal affect, normal mood Skin: Warm, dry, intact ED Course Vital Signs 09/14/18 09/14/18 09/14/18 13:27 13:41 15:23 Temperature 97.4 F L Pulse Rate 94 H Pulse Rate [ 97 H 84 Bilateral] Respiratory 26 H Rate Respiratory 19 17 Rate [Bilateral ] Blood Pressure 126/66 [Right] O2 Sat by Pulse 98 Oximetry 09/14/18 09/14/18 16:00 18:10 Temperature Pulse Rate 82 74 Pulse Rate [ Bilateral] Respiratory 16 16 Rate Respiratory Rate [Bilateral ] Blood Pressure 116/73 111/45 [Right] O2 Sat by Pulse 96 95 Oximetry ED Medical Decision Making - Lab Data Result diagrams: 09/14/18 13:40 09/14/18 13:40 Lab Results 09/14/18 09/14/18 09/14/18 Range/Units 13:40 13:40 13:40 WBC 7.5 (4.5-11.0) K/mm3 RBC 5.09 H (3.65-5.03) M/mm3 Hgb 15.1 H (10.1-14.3) gm/dl Hct 46.3 H (30.3-42.9) % MCV 91 (79-97) fl MCH 30 (28-32) pg MCHC 33 (30-34) % RDW 15.6 H (13.2-15.2) % Plt Count 268 (140-440) K/mm3 Lymph % (Auto) 24.9 (13.4-35.0) % Mcnairy % (Auto) 5.3 (0.0-7.3) % Eos % (Auto) 3.8 (0.0-4.3) % Baso % (Auto) 0.8 (0.0-1.8) % Lymph # 1.9 (1.2-5.4) K/mm3 Mcnairy # 0.4 (0.0-0.8) K/mm3 Eos # 0.3 (0.0-0.4) K/mm3 Baso # 0.1 (0.0-0.1) K/mm3 Seg Neutrophils % 65.2 (40.0-70.0) % Seg Neutrophils # 4.9 (1.8-7.7) K/mm3 PT 13.0 (12.2-14.9) Sec. INR 0.93 (0.87-1.13) APTT 30.5 (24.2-36.6) Sec. Sodium 140 (137-145) mmol/L Potassium 3.8 (3.6-5.0) mmol/L Chloride 99.3 (98-107) mmol/L Carbon Dioxide 28 (22-30) mmol/L Anion Gap 17 mmol/L BUN 7 (7-17) mg/dL Creatinine 0.7 (0.7-1.2) mg/dL Estimated GFR > 60 ml/min BUN/Creatinine Ratio 10 % Glucose 156 H (65-100) mg/dL Calcium 10.2 (8.4-10.2) mg/dL Total Bilirubin 0.80 (0.1-1.2) mg/dL AST 13 (5-40) units/L ALT 12 (7-56) units/L Alkaline Phosphatase 102 (35-129) units/L NT-Pro-B Natriuret Pep 17.18 (0-900) pg/mL Total Protein 6.8 (6.3-8.2) g/dL Albumin 3.8 L (3.9-5) g/dL Albumin/Globulin Ratio 1.3 % - EKG Data -: EKG Interpreted by Me EKG shows normal: sinus rhythm, axis (qrs 49), QRS complexes (qrsd 82), ST-T waves (no stemi) Rate: normal (86) - EKG Data When compared to previous EKG there are: no significant change - Radiology Data Radiology results: report reviewed AP CHEST: HISTORY: Shortness of breath AP view of the chest demonstrates a normal mediastinal and cardiac contour with clear lungs and normal bony and soft tissue structures. No change since 08/11/18. IMPRESSION: Unremarkable AP chest. - Medical Decision Making copd extubation with continued wheeze despite ed tx. plan to admit to the hospitalist service for further treatment no co2 retention on abg - Differential Diagnosis COPD, pneumonia, asthma, CHF Critical Care Time: No Critical care attestation.: If time is entered above; I have spent that time in minutes in the direct care of this critically ill patient, excluding procedure time. ED Disposition Clinical Impression: COPD exacerbation, Oxygen dependent, Morbid obesity with BMI of 50.0-59.9, adult Disposition: OP ADMIT IP TO THIS HOSP Is pt being admited?: Yes Condition: Stable Time of Disposition: 16:35 (Dr Fernandes/hosp)
[2018-09-14] MEDS ORDERED: NORCO 5/325 PO ONE (17:14)
--- NOTE | 2018-09-14 18:01 | History and Physical Report ---
History of Present Illness Date of examination: 09/14/18 Date of admission: 09/14/2018 Chief complaint: Increasing shortness of breath for 1 week and wheezing for 1 week History of present illness: 53-year-old female with multiple medical problems including COPD, hypertension, congestive heart failure, insulin-dependent diabetes and arthritis/bipolar and schizoaffective disorder comes in for increasing shortness of breath and coughing and wheezing for 1 week. Cough productive of mucoid sputum to yellow sputum. Patient took Z-Joe with no relief. No fever or chills. Her overlay plastician is Dr. Corbin. Patient was recently admitted and discharged on 08/14/2018 after being treated for COPD exacerbation and respiratory failure. Patient has home nebulizer machine, medicines for nebulizer machine and home oxygen. Patient continues to smoke. Old chart reviewed 08/14/2018--discharge summary Hospital course: 53-year-old woman with a history of hypertension, diabetes, COPD, CHF, bipolar, schizophrenia, chronic pain came to emergency room with complaints of shortness of breath. She was admitted for COPD exacerbation. Placed on nebulizer treatment, high dose IV steroids, BIPAP as needed, IV abx. followed BG with fingersticks and placed on insulin sliding scale. Placed on outpatient medications, DVT prophylaxis. Her symptom improved with supportive care and then was discharged home in stable condition. Discharge diagnosis: Respiratory failure acute on chronic Acute COPD exacerbation Hypertension Diabetes of 2 Bipolar disorder Schizophrenia Chronic pain syndrome Past Medical History Previous Medical History?: Yes Hypertension Congestive Heart Failure: Yes [id number] Arthritis Psychiatric Treatment: Yes (Bipolar, Schzioaffective) Asthma COPD Additional medical history: Bronchitis, Home O2 2 liters, Morbid Obesity, Surgical History Past Surgical History?: Yes Additional Surgical History: spinal fusion T8 to T12, Right hip surgery, Hysterectomy, J-tube in the past, cholecystectomy Social History Smoking Status: Current Every Day Smoker Substance Use Type: Alcohol, Marijuana occasionally Family history HTN Review of systems ROS: Stated complaint: ANN Other details as noted in HPI Comment: All other systems reviewed and negative Medications and Allergies Allergies Allergy/AdvReac Type Severity Reaction Status Date / Time Penicillins Allergy Angioedema Verified 09/14/18 13:55 prednisone Allergy Unknown Verified 09/14/18 13:55 bupropion HCl AdvReac Unknown Verified 09/14/18 13:55 [From Wellbutrin] divalproex sodium AdvReac Unknown Verified 09/14/18 13:55 [From Depakote] fluoxetine HCl [From Prozac] AdvReac Unknown Verified 09/14/18 13:55 lithium AdvReac Unknown Verified 09/14/18 13:55 Home Medications Medication Instructions Recorded Confirmed Last Taken Type Insulin Aspart Protam & Aspart 15 units SUB-Q TID 30 Days 07/30/18 09/14/18 Unknown Rx [NovoLOG Mix 70-30 Flexpen] insuln.pen Lisinopril 20 mg PO DAILY #30 tablet 07/30/18 09/14/18 Unknown Rx Loratadine [Claritin] 10 mg PO QDAY #10 tablet 07/30/18 09/14/18 Unknown Rx ALBUTEROL Inhaler(NF) [VENTOLIN 2 puff IH Q4H PRN 09/14/18 09/14/18 Unknown History Inhaler(NF)] ALBUTEROL NEB's [Proventil 0.083% 2.5 mg IH QID PRN 09/14/18 09/14/18 Unknown History NEBS] Budesonide/Formoterol Fumarate 1 puff IH BID 09/14/18 09/14/18 Unknown History [Symbicort 160-4.5 Mcg Inhaler] Escitalopram Oxalate [Lexapro] 20 mg PO QDAY 09/14/18 09/14/18 Unknown History LORazepam [Ativan] 1 mg PO Q12H 09/14/18 09/14/18 09/14/18 History Omeprazole 20 mg PO QDAY 09/14/18 09/14/18 Unknown History oxyCODONE /ACETAMINOPHEN [Percocet 1 tab PO Q8H PRN 09/14/18 09/14/18 Unknown History 5/325 mg] Exam - Physical Exam Narrative exam: In mild to moderate respiratory distress - Constitutional Vitals: Temp Pulse Resp BP Pulse Ox 97.4 F L 82 16 116/73 96 09/14/18 13:27 09/14/18 16:00 09/14/18 16:00 09/14/18 16:00 09/14/18 16:00 General appearance: Present: no acute distress, mild distress, well-nourished - EENT Eyes: Present: PERRL ENT: hearing intact, clear oral mucosa - Neck Neck: Present: supple, normal ROM - Respiratory Respiratory effort: normal Respiratory: bilateral: diminished, rhonchi, wheezing - Cardiovascular Heart rate: 78 Rhythm: regular Heart Sounds: Present: S1 & S2. Absent: rub, click - Extremities Extremities: no ischemia, pulses intact, pulses symmetrical, No edema Peripheral Pulses: within normal limits - Abdominal General gastrointestinal: Present: soft, non-tender, non-distended, normal bowel sounds Female genitourinary: Present: normal - Rectal Rectal Exam: deferred - Integumentary Integumentary: Present: clear, warm, dry - Musculoskeletal Musculoskeletal: gait normal, strength equal bilaterally - Psychiatric Psychiatric: appropriate mood/affect, intact judgment & insight - Neurologic Neurologic: CNII-XII intact, moves all extremities - Allied Health Allied health notes reviewed: nursing, case management Results - Labs CBC & Chem 7: 09/14/18 13:40 09/14/18 13:40 Labs: Laboratory Last Values WBC 7.5 K/mm3 (4.5-11.0) 09/14/18 13:40 RBC 5.09 M/mm3 (3.65-5.03) H 09/14/18 13:40 Hgb 15.1 gm/dl (10.1-14.3) H 09/14/18 13:40 Hct 46.3 % (30.3-42.9) H 09/14/18 13:40 MCV 91 fl (79-97) 09/14/18 13:40 MCH 30 pg (28-32) 09/14/18 13:40 MCHC 33 % (30-34) 09/14/18 13:40 RDW 15.6 % (13.2-15.2) H 09/14/18 13:40 Plt Count 268 K/mm3 (140-440) 09/14/18 13:40 Lymph % (Auto) 24.9 % (13.4-35.0) 09/14/18 13:40 Marshall % (Auto) 5.3 % (0.0-7.3) 09/14/18 13:40 Eos % (Auto) 3.8 % (0.0-4.3) 09/14/18 13:40 Baso % (Auto) 0.8 % (0.0-1.8) 09/14/18 13:40 Lymph # 1.9 K/mm3 (1.2-5.4) 09/14/18 13:40 Marshall # 0.4 K/mm3 (0.0-0.8) 09/14/18 13:40 Eos # 0.3 K/mm3 (0.0-0.4) 09/14/18 13:40 Baso # 0.1 K/mm3 (0.0-0.1) 09/14/18 13:40 Seg Neutrophils % 65.2 % (40.0-70.0) 09/14/18 13:40 Seg Neutrophils # 4.9 K/mm3 (1.8-7.7) 09/14/18 13:40 PT 13.0 Sec. (12.2-14.9) 09/14/18 13:40 INR 0.93 (0.87-1.13) 09/14/18 13:40 APTT 30.5 Sec. (24.2-36.6) 09/14/18 13:40 Sodium 140 mmol/L (137-145) 09/14/18 13:40 Potassium 3.8 mmol/L (3.6-5.0) 09/14/18 13:40 Chloride 99.3 mmol/L (98-107) 09/14/18 13:40 Carbon Dioxide 28 mmol/L (22-30) 09/14/18 13:40 Anion Gap 17 mmol/L 09/14/18 13:40 BUN 7 mg/dL (7-17) 09/14/18 13:40 Creatinine 0.7 mg/dL (0.7-1.2) 09/14/18 13:40 Estimated GFR > 60 ml/min 09/14/18 13:40 BUN/Creatinine Ratio 10 % 09/14/18 13:40 Glucose 156 mg/dL (65-100) H 09/14/18 13:40 Calcium 10.2 mg/dL (8.4-10.2) 09/14/18 13:40 Total Bilirubin 0.80 mg/dL (0.1-1.2) 09/14/18 13:40 AST 13 units/L (5-40) 09/14/18 13:40 ALT 12 units/L (7-56) 09/14/18 13:40 Alkaline Phosphatase 102 units/L (35-129) 09/14/18 13:40 NT-Pro-B Natriuret Pep 17.18 pg/mL (0-900) 09/14/18 13:40 Total Protein 6.8 g/dL (6.3-8.2) 09/14/18 13:40 Albumin 3.8 g/dL (3.9-5) L 09/14/18 13:40 Albumin/Globulin Ratio 1.3 % 09/14/18 13:40 Short CBC 09/14/18 Range/Units 13:40 WBC 7.5 (4.5-11.0) K/mm3 Hgb 15.1 H (10.1-14.3) gm/dl Hct 46.3 H (30.3-42.9) % Plt Count 268 (140-440) K/mm3 BMP 09/14/18 13:40 Sodium 140 Potassium 3.8 Chloride 99.3 Carbon Dioxide 28 BUN 7 Creatinine 0.7 Glucose 156 H Calcium 10.2 Liver Function 09/14/18 Range/Units 13:40 Total Bilirubin 0.80 (0.1-1.2) mg/dL AST 13 (5-40) units/L ALT 12 (7-56) units/L Alkaline Phosphatase 102 (35-129) units/L Albumin 3.8 L (3.9-5) g/dL - Imaging and Cardiology EKG: report reviewed (86/m no acute ST-T wave changes. Normal sinus rhythm) Chest x-ray: report reviewed (no acute findings) Assessment and Plan Advance Directives: Yes (full code) VTE prophylaxis?: Chemical Plan of care discussed with patient/family: Yes - Patient Problems (1) Acute on chronic respiratory failure with hypoxia Current Visit: No Status: Acute Plan to address problem: Patient is hypoxic Patient initiated on duonebs nebulizer solution IV Solu-Medrol and IV antibiotics in the form of Levaquin (2) COPD exacerbation Current Visit: Yes Status: Acute Plan to address problem: Patient is hypoxic Patient initiated on duonebs nebulizer solution IV Solu-Medrol and IV antibiotics in the form of Levaquin (3) HTN (hypertension) Current Visit: No Status: Chronic Qualifiers: Hypertension type: essential hypertension Qualified Code(s): I10 - Essential (primary) hypertension Plan to address problem: Continue antihypertensives in the form of lisinopril and monitor blood pressure every shift (4) Insulin dependent diabetes mellitus Current Visit: No Status: Chronic Plan to address problem: Continue home insulin NovoLog Mix 70/30 25 units twice a day and coverage Check hemoglobin A1c (5) Nicotine dependence Current Visit: Yes Status: Chronic Qualifiers: Nicotine product type: cigarettes Plan to address problem: NicoDerm patch initiated (6) Chronic pain syndrome Current Visit: Yes Status: Chronic Plan to address problem: Continue and allergies 6 however final diagnosis sternal regarding minutes with 34 chemistry I 30 minutes me DICTATING necessary (7) Bipolar disorder Current Visit: Yes Status: Chronic Qualifiers: Active/Remission status: in full remission Plan to address problem: Continue antipsychotics (8) Malnutrition Current Visit: Yes Status: Acute Qualifiers: Protein-calorie malnutrition severity: mild Plan to address problem: Mild-albumin 3.8 (9) DVT prophylaxis Current Visit: No Status: Chronic Plan to address problem: Initiated on subcutaneous Lovenox and GI prophylaxis
[2018-09-14] MEDS ORDERED: TYLENOL PO PRN (18:37)
[2018-09-14] MEDS ORDERED: ZOFRAN IV PRN (18:37)
[2018-09-14] MEDS ORDERED: SODIUM CHLORIDE FLUSH SYRINGE 10 ML IV PRN (18:37)
[2018-09-14] MEDS ORDERED: PROAIR IH PRN (18:45)
[2018-09-14] MEDS ORDERED: HumaLOG SUB-Q ONE (18:45)
[2018-09-14] MEDS ORDERED: LOVENOX SUB-Q SCH (19:00)
[2018-09-14] MEDS ORDERED: NON-FORMULARY (Escitalopram Oxalate [Lexapro] 20 MG) PO SCH (19:00)
[2018-09-14] MEDS ORDERED: NON-FORMULARY (Omeprazole [Omeprazole] 20 MG) PO SCH (19:00)
[2018-09-14] MEDS: CLARITIN PO SCH (19:41)
[2018-09-14] MEDS: ZITHROMAX 500 MG in NACL 0.9% 250ML 250 ML IV SCH (19:41)
[2018-09-14] MEDS: PULMICORT IH SCH (20:33)
[2018-09-14] MEDS: DUONEB *Not for PRN Use IH SCH (20:33)
[2018-09-14] MEDS: BROVANA NEBU IH SCH (20:47)
[2018-09-14] MEDS: PEPCID IV SCH (21:25)
[2018-09-14] MEDS: SOLU-Medrol IV SCH (21:25)
[2018-09-14] MEDS: PROTONIX PO SCH (21:26)
[2018-09-14] MEDS: PERCOCET 5/325 PO PRN (21:26)
[2018-09-14] MEDS: SODIUM CHLORIDE FLUSH SYRINGE 10 ML IV SCH (21:28)
[2018-09-14] MEDS ORDERED: INSULIN ASPART PROTAM SUB-Q SCH (22:00)
[2018-09-14] MEDS ORDERED: NON-FORMULARY (Budesonide/Formoterol Fumarate [Symbicort 160-4.5 Mcg Inhaler] 2 PUFF) IH SCH (22:00)
[2018-09-14] MEDS ORDERED: ASPART SUB-Q SCH (22:00)
[2018-09-14] MEDS: LEXAPRO PO SCH (22:59)
[2018-09-14] MEDS: LOVENOX SUB-Q SCH (22:59)
[2018-09-14] MEDS: ROCEPHIN/NS 2 GM/100 ML 2 GM/100 ML BAG IV SCH (23:34)
[2018-09-15] MEDS: ROBITUSSIN PO PRN ×5 (00:12→18:08)
[2018-09-15] MEDS: PROVENTIL IH PRN ×2 (02:20→18:13)
[2018-09-15] MEDS ORDERED: ATIVAN PO SCH (03:00)
[2018-09-15] MEDS: PERCOCET 5/325 PO PRN ×3 (05:04→16:46)
[2018-09-15] MEDS: SOLU-Medrol IV SCH ×3 (05:36→21:35)
[2018-09-15] MEDS: BROVANA NEBU IH SCH ×2 (07:46→20:00)
[2018-09-15] MEDS: PULMICORT IH SCH ×2 (07:46→20:00)
[2018-09-15] MEDS: DUONEB *Not for PRN Use IH SCH ×4 (07:47→20:00)
[2018-09-15] MEDS: LOVENOX SUB-Q SCH (09:41)
[2018-09-15] MEDS: LEXAPRO PO SCH (09:42)
[2018-09-15] MEDS: ZESTRIL PO SCH ×2 (09:43→09:45)
[2018-09-15] MEDS: PROTONIX PO SCH (09:43)
[2018-09-15] MEDS: CLARITIN PO SCH (09:43)
[2018-09-15] MEDS: PEPCID IV SCH ×2 (09:44→21:35)
[2018-09-15] MEDS: SODIUM CHLORIDE FLUSH SYRINGE 10 ML IV SCH ×2 (09:45→21:36)
[2018-09-15 10:32] LABS: Hematocrit 42.1 % (30.3-42.9); Hemoglobin 13.7 gm/dl (10.1-14.3); Mean Corpuscular HGB Conc 33 % (30-34); Mean Corpuscular Volume 91 fl (79-97); Platelet Count 247 K/mm3 (140-440); Red Blood Count 4.61 M/mm3 (3.65-5.03); Red Cell Distribution Width 15.2 % (13.2-15.2)
[2018-09-15 10:56] LABS: Alanine Aminotransferase 10 units/L (7-56); Albumin 3.6 g/dL (3.9-5); BUN/Creatinine Ratio 11; Blood Urea Nitrogen 8 mg/dL (7-17); Calcium 9.7 mg/dL (8.4-10.2); Hemolysis Index 9
[2018-09-15] MEDS: ATIVAN PO SCH ×2 (11:35→21:36)
[2018-09-15 14:31] LABS: Band Neutrophils # (Manual) 0.2 K/mm3; Basophils % (Manual) 0 % (0.0-1.8); Eosinophils % (Manual) 0 % (0.0-4.3); Total Cells Counted 100
[2018-09-15 14:32] LABS: Platelet Estimate Consistent w Auto; RBC Morphology Normal
[2018-09-15] MEDS: DILAUDID IV PRN ×3 (14:51→21:53)
--- NOTE | 2018-09-15 15:30 | Progress Note ---
Assessment and Plan Assessment and plan: (1) Acute on chronic respiratory failure with hypoxia Patient is hypoxic Patient initiated on duonebs, nebulizer solution, IV Solu-Medrol and IV Levaquin, brovana and Pulmicort Patient still complaining shortness of breath, BiPAP as needed (2) COPD exacerbation - Continue treatment as stated in #1 (3) HTN (hypertension) Continue lisinopril and monitor blood pressure every shift (4) Insulin dependent diabetes mellitus Continue home insulin NovoLog Mix 70/30 25 units twice a day and coverage hemoglobin A1c 6.7 (5) Nicotine dependence NicoDerm patch initiated (6) Chronic pain syndrome - Patient is on Percocet (7) Bipolar disorder, anxiety Continue antipsychotics Continue Ativan (8) Malnutrition Mild-albumin 3.8 (9) DVT prophylaxis Initiated on subcutaneous Lovenox and GI prophylaxis History Interval history: Patient was seen and evaluated this morning, patient is still complaining shortness of breath. Complaining pain and anxiety. Hospitalist Physical - Physical exam Narrative exam: In mild respiratory distress. The patient is morbidly obese. Vital signs as documented. Head exam is unremarkable. No scleral icterus . Neck is without jugular venous distension, thyromegaly, or carotid bruits. Lungs wheezing gone over the chest. Cardiac exam reveals regular rate and Rhythm. Abdominal exam reveals normal bowel sounds. Extremities are nonedematous and both femoral and pedal pulses are normal. MANAGER ORACLE: Alert and oriented 3. No focal weakness. - Constitutional Vitals: Temp Pulse Resp BP Pulse Ox 97.6 F 101 H 20 114/67 92 09/15/18 12:07 09/15/18 12:50 09/15/18 12:50 09/15/18 12:07 09/15/18 12:07 General appearance: Present: no acute distress, mild distress, well-nourished Results - Labs CBC & Chem 7: 09/15/18 09:58 09/15/18 09:58 Labs: Laboratory Last Values WBC 9.3 K/mm3 (4.5-11.0) 09/15/18 09:58 RBC 4.61 M/mm3 (3.65-5.03) 09/15/18 09:58 Hgb 13.7 gm/dl (10.1-14.3) 09/15/18 09:58 Hct 42.1 % (30.3-42.9) 09/15/18 09:58 MCV 91 fl (79-97) 09/15/18 09:58 MCH 30 pg (28-32) 09/15/18 09:58 MCHC 33 % (30-34) 09/15/18 09:58 RDW 15.2 % (13.2-15.2) 09/15/18 09:58 Plt Count 247 K/mm3 (140-440) 09/15/18 09:58 Lymph % (Auto) 24.9 % (13.4-35.0) 09/14/18 13:40 [place] % (Auto) 5.3 % (0.0-7.3) 09/14/18 13:40 Eos % (Auto) 3.8 % (0.0-4.3) 09/14/18 13:40 Baso % (Auto) 0.8 % (0.0-1.8) 09/14/18 13:40 Lymph # 1.9 K/mm3 (1.2-5.4) 09/14/18 13:40 [place] # 0.4 K/mm3 (0.0-0.8) 09/14/18 13:40 Eos # 0.3 K/mm3 (0.0-0.4) 09/14/18 13:40 Baso # 0.1 K/mm3 (0.0-0.1) 09/14/18 13:40 Add Manual Diff Complete 09/15/18 09:58 Total Counted 100 09/15/18 09:58 Seg Neutrophils % Extrusion Technician 09/15/18 09:58 Seg Neuts % (Manual) 94.0 % (40.0-70.0) H 09/15/18 09:58 Band Neutrophils % 2.0 % 09/15/18 09:58 Lymphocytes % (Manual) 2.0 % (13.4-35.0) L 09/15/18 09:58 Reactive Lymphs % (Man) 0 % 09/15/18 09:58 Monocytes % (Manual) 2.0 % (0.0-7.3) 09/15/18 09:58 Eosinophils % (Manual) 0 % (0.0-4.3) 09/15/18 09:58 Basophils % (Manual) 0 % (0.0-1.8) 09/15/18 09:58 Metamyelocytes % 0 % 09/15/18 09:58 Myelocytes % 0 % 09/15/18 09:58 Promyelocytes % 0 % 09/15/18 09:58 Blast Cells % 0 % 09/15/18 09:58 Nucleated RBC % Not Reportable 09/15/18 09:58 Seg Neutrophils # 4.9 K/mm3 (1.8-7.7) 09/14/18 13:40 Seg Neutrophils # Man 8.7 K/mm3 (1.8-7.7) H 09/15/18 09:58 Band Neutrophils # 0.2 K/mm3 09/15/18 09:58 Lymphocytes # (Manual) 0.2 K/mm3 (1.2-5.4) L 09/15/18 09:58 Abs React Lymphs (Man) 0.0 K/mm3 09/15/18 09:58 Monocytes # (Manual) 0.2 K/mm3 (0.0-0.8) 09/15/18 09:58 Eosinophils # (Manual) 0.0 K/mm3 (0.0-0.4) 09/15/18 09:58 Basophils # (Manual) 0.0 K/mm3 (0.0-0.1) 09/15/18 09:58 Metamyelocytes # 0.0 K/mm3 09/15/18 09:58 Myelocytes # 0.0 K/mm3 09/15/18 09:58 Promyelocytes # 0.0 K/mm3 09/15/18 09:58 Blast Cells # 0.0 K/mm3 09/15/18 09:58 WBC Morphology Not Reportable 09/15/18 09:58 Hypersegmented Neuts Not Reportable 09/15/18 09:58 Hyposegmented Neuts Not Reportable 09/15/18 09:58 Hypogranular Neuts Not Reportable 09/15/18 09:58 Smudge Cells Not Reportable 09/15/18 09:58 Toxic Granulation Not Reportable 09/15/18 09:58 Toxic Vacuolation Not Reportable 09/15/18 09:58 Dohle Bodies Not Reportable 09/15/18 09:58 Pelger-Huet Anomaly Not Reportable 09/15/18 09:58 Chantal Rods Not Reportable 09/15/18 09:58 Platelet Estimate Consistent w auto 09/15/18 09:58 Clumped Platelets Not Reportable 09/15/18 09:58 Plt Clumps, EDTA Not Reportable 09/15/18 09:58 Large Platelets Not Reportable 09/15/18 09:58 Giant Platelets Not Reportable 09/15/18 09:58 Platelet Satelliting Not Reportable 09/15/18 09:58 Plt Morphology Comment Not Reportable 09/15/18 09:58 RBC Morphology Normal 09/15/18 09:58 Dimorphic RBCs Not Reportable 09/15/18 09:58 Polychromasia Not Reportable 09/15/18 09:58 Hypochromasia Not Reportable 09/15/18 09:58 Poikilocytosis Not Reportable 09/15/18 09:58 Anisocytosis Not Reportable 09/15/18 09:58 Microcytosis Not Reportable 09/15/18 09:58 Macrocytosis Not Reportable 09/15/18 09:58 Spherocytes Not Reportable 09/15/18 09:58 Pappenheimer Bodies Not Reportable 09/15/18 09:58 Sickle Cells Not Reportable 09/15/18 09:58 Target Cells Not Reportable 09/15/18 09:58 Tear Drop Cells Not Reportable 09/15/18 09:58 Ovalocytes Not Reportable 09/15/18 09:58 Helmet Cells Not Reportable 09/15/18 09:58 Chan-[place] Bodies Not Reportable 09/15/18 09:58 [place] Rings Not Reportable 09/15/18 09:58 [place] Cells Not Reportable 09/15/18 09:58 Bite Cells Not Reportable 09/15/18 09:58 Crenated Cell Not Reportable 09/15/18 09:58 Elliptocytes Not Reportable 09/15/18 09:58 Acanthocytes (Spur) Not Reportable 09/15/18 09:58 Rouleaux Not Reportable 09/15/18 09:58 Hemoglobin C Crystals Not Reportable 09/15/18 09:58 Schistocytes Not Reportable 09/15/18 09:58 Malaria parasites Not Reportable 09/15/18 09:58 Heber Bodies Not Reportable 09/15/18 09:58 Hem Pathologist Commnt No 09/15/18 09:58 PT 13.0 Sec. (12.2-14.9) 09/14/18 13:40 INR 0.93 (0.87-1.13) 09/14/18 13:40 APTT 30.5 Sec. (24.2-36.6) 09/14/18 13:40 POC ABG pH 7.348 (7.35-7.45) L 09/14/18 18:11 POC ABG pCO2 44.4 (35-45) 09/14/18 18:11 POC ABG pO2 73 (80-105) L 09/14/18 18:11 POC ABG HCO3 24.4 (22-26 mml/L) 09/14/18 18:11 POC ABG Total CO2 26 (23-27mmol/L) 09/14/18 18:11 POC ABG O2 Sat 94 09/14/18 18:11 POC ABG Base Excess -1 ((-2) - (+3)mmol/L) 09/14/18 18:11 FiO2 28 % 09/14/18 18:11 Sodium 136 mmol/L (137-145) L 09/15/18 09:58 Potassium 5.2 mmol/L (3.6-5.0) H D 09/15/18 09:58 Chloride 98.7 mmol/L (98-107) 09/15/18 09:58 Carbon Dioxide 27 mmol/L (22-30) 09/15/18 09:58 Anion Gap 16 mmol/L 09/15/18 09:58 BUN 8 mg/dL (7-17) 09/15/18 09:58 Creatinine 0.7 mg/dL (0.7-1.2) 09/15/18 09:58 Estimated GFR > 60 ml/min 09/15/18 09:58 BUN/Creatinine Ratio 11 % 09/15/18 09:58 Glucose 343 mg/dL (65-100) H 09/15/18 09:58 POC Glucose 278 (70-105) H 09/15/18 11:10 Hemoglobin A1c 6.7 % (4-6) H 09/14/18 18:00 Calcium 9.7 mg/dL (8.4-10.2) 09/15/18 09:58 Total Bilirubin 0.50 mg/dL (0.1-1.2) 09/15/18 09:58 AST 7 units/L (5-40) 09/15/18 09:58 ALT 10 units/L (7-56) 09/15/18 09:58 Alkaline Phosphatase 90 units/L (35-129) 09/15/18 09:58 NT-Pro-B Natriuret Pep 17.18 pg/mL (0-900) 09/14/18 13:40 Total Protein 6.6 g/dL (6.3-8.2) 09/15/18 09:58 Albumin 3.6 g/dL (3.9-5) L 09/15/18 09:58 Albumin/Globulin Ratio 1.2 % 09/15/18 09:58 Active Medications - Current Medications Current Medications: Generic Name Dose Route Start Last Admin Trade Name Freq PRN Reason Stop Dose Admin Acetaminophen 650 mg 09/14/18 18:37 Tylenol PO Q4H PRN Pain MILD(1-3)/Fever >100.5/KHAN Albuterol 2.5 mg 09/14/18 18:41 09/15/18 02:20 Proventil IH 2.5 mg Q4HRT PRN Administration Shortness Of Breath Albuterol/Ipratropium 1 ampul 09/14/18 20:00 09/15/18 12:40 Duoneb *Not For Prn Use* IH 1 ampul QIDRT VIC Administration Arformoterol Tartrate 15 mcg 09/14/18 20:00 09/15/18 07:46 Brovana Nebu IH 15 mcg Q12HRT VIC Administration Budesonide 0.5 mg 09/14/18 20:00 09/15/18 07:46 Pulmicort IH 0.5 mg Q12HRT VIC Administration Enoxaparin Sodium 40 mg 09/14/18 20:00 09/15/18 09:41 Lovenox SUB-Q 40 mg QDAY@1000 VIC Administration Escitalopram Oxalate 20 mg 09/14/18 20:00 09/15/18 09:42 Lexapro PO 20 mg DAILY VIC Administration Famotidine 20 mg 09/14/18 22:00 09/15/18 09:44 Pepcid IV 20 mg BID VIC Administration Guaifenesin 200 mg 09/15/18 00:05 09/15/18 14:39 Robitussin PO 200 mg Q4H PRN Administration Cough Hydromorphone HCl 0.5 mg 09/14/18 18:41 09/15/18 14:51 Dilaudid IV 0.5 mg Q3H PRN Administration Pain , Severe (7-10) Azithromycin 500 mg/ Sodium 250 mls @ 250 mls/hr 09/14/18 20:00 09/14/18 19 :41 Chloride IV 250 mls/hr Q24H VIC Administration Ceftriaxone Sodium 2 gm in 100 mls @ 200 mls/hr 09/14/18 21:00 09/14/18 23:34 Rocephin/Ns 2 Gm/100 Ml IV 200 mls/hr Q24H VIC Administration Protocol Insulin Human Isoph/Insulin Regular 25 unit 09/14/18 22:00 09/15/18 09:56 Humulin 70/30 SUB-Q 25 unit BID VIC Administration Lisinopril 20 mg 09/14/18 19:00 09/15/18 09:45 Zestril PO 20 mg DAILY VIC Administration Loratadine 10 mg 09/14/18 19:00 09/15/18 09:43 Claritin PO 10 mg QDAY VIC Administration Lorazepam 1 mg 09/15/18 10:14 09/15/18 11:35 Ativan PO 1 mg Q12HR VIC Administration Methylprednisolone Sodium Succinate 80 mg 09/14/18 22:00 09/15/18 14:37 Solu-Medrol IV 80 mg Q8HR VIC Administration Ondansetron HCl 4 mg 09/14/18 18:37 Zofran IV Q8H PRN Nausea And Vomiting Oxycodone/Acetaminophen 1 tab 09/15/18 10:10 09/15/18 11:35 Percocet 5/325 PO 1 tab Q4H PRN Administration Pain, Moderate (4-6) Pantoprazole Sodium 20 mg 09/14/18 20:00 09/15/18 09:43 Protonix PO 20 mg QDAY VIC Administration Sodium Chloride 10 ml 09/14/18 22:00 09/15/18 09:45 Sodium Chloride Flush Syringe 10 Ml IV 10 ml BID VIC Administration Sodium Chloride 10 ml 09/14/18 18:37 Sodium Chloride Flush Syringe 10 Ml IV PRN PRN LINE FLUSH
[2018-09-15] MEDS: HumaLOG SUB-Q SCH ×2 (18:04→22:19)
[2018-09-15] MEDS: ZITHROMAX 500 MG in NACL 0.9% 250ML 250 ML IV SCH (20:20)
[2018-09-15] MEDS: ROCEPHIN/NS 2 GM/100 ML 2 GM/100 ML BAG IV SCH (22:17)
[2018-09-16] MEDS: DUONEB *Not for PRN Use IH SCH ×4 (01:35→20:47)
[2018-09-16] MEDS: ROBITUSSIN PO PRN ×4 (02:35→21:05)
[2018-09-16] MEDS: DILAUDID IV PRN ×4 (02:36→23:16)
[2018-09-16] MEDS: PERCOCET 5/325 PO PRN ×3 (05:11→20:59)
[2018-09-16] MEDS: SOLU-Medrol IV SCH ×4 (05:21→21:05)
[2018-09-16] MEDS: BROVANA NEBU IH SCH ×2 (09:09→20:45)
[2018-09-16] MEDS: PULMICORT IH SCH ×2 (09:09→20:45)
[2018-09-16] MEDS ORDERED: KIONEX PO ONE (09:30)
[2018-09-16] MEDS: HumaLOG SUB-Q SCH ×4 (09:39→22:46)
--- NOTE | 2018-09-16 10:17 | Cat Scan Report ---
CTA CHEST: HISTORY: Short of breath. COMPARISON: 05/01/18. TECHNIQUE: Helical CT in 1.25mm intervals following IV contrast. Pulmonary embolus protocol. Sagittal and coronal reformatted images. Rotational MIP images. FINDINGS: Contrast bolus is satisfactory. No pulmonary embolus is identified. Thyroid gland: Normal. Tracheobronchial tree: Normal. Esophagus: Normal. Heart: Normal. Pericardium: Normal. Mediastinum: Normal. Lung [place]: Left upper lobe pneumonia has resolved since 05/01/18. There is minor linear atelectasis in the left upper lobe and bilateral lower lobes. No evidence for mass, pneumonia or significant underlying parenchymal lung disease. Pleural Spaces: Normal. Musculoskeletal: Thoracic spondylosis.. IMPRESSION: No evidence for pulmonary embolus. Minor linear atelectasis in both lungs as described. Previous pneumonia has resolved. No acute cardiopulmonary process is identified.
[2018-09-16] MEDS: PROTONIX PO SCH (10:37)
[2018-09-16] MEDS: LEXAPRO PO SCH (10:37)
[2018-09-16] MEDS: PEPCID IV SCH (10:37)
[2018-09-16] MEDS: LOVENOX SUB-Q SCH (10:37)
[2018-09-16] MEDS: ATIVAN PO SCH ×2 (10:38→21:03)
[2018-09-16] MEDS: CLARITIN PO SCH (10:38)
[2018-09-16] MEDS: SODIUM CHLORIDE FLUSH SYRINGE 10 ML IV SCH ×2 (10:39→21:02)
[2018-09-16] MEDS: ZESTRIL PO SCH (10:39)
--- NOTE | 2018-09-16 15:26 | Progress Note ---
Assessment and Plan Assessment and plan: (1) Acute on chronic respiratory failure with hypoxia Patient is hypoxic Patient initiated on duonebs, nebulizer solution, IV Solu-Medrol and IV Levaquin, brovana and Pulmicort Patient still complaining shortness of breath, BiPAP as needed No much improvement, I put a consult for pulmonary (2) COPD exacerbation - Continue treatment as stated in #1 (3) HTN (hypertension) Continue lisinopril and monitor blood pressure every shift (4) Insulin dependent diabetes mellitus Continue home insulin NovoLog Mix 70/30 25 units twice a day and coverage hemoglobin A1c 6.7 (5) Nicotine dependence NicoDerm patch initiated (6) Chronic pain syndrome - Patient is on Percocet (7) Bipolar disorder, anxiety Continue antipsychotics Continue Ativan (8) Malnutrition Mild-albumin 3.8 (9) DVT prophylaxis Initiated on subcutaneous Lovenox and GI prophylaxis History Interval history: Patient was seen and evaluated this morning, patient is still complaining sh ortness of breath. Complaining pain and anxiety. Hospitalist Physical - Physical exam Narrative exam: In mild respiratory distress. The patient is morbidly obese. Vital signs as documented. Head exam is unremarkable. No scleral icterus . Neck is without jugular venous distension, thyromegaly, or carotid bruits. Lungs wheezing gone over the chest. Cardiac exam reveals regular rate and Rhythm. Abdominal exam reveals normal bowel sounds. Extremities are nonedematous and both femoral and pedal pulses are normal. 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 No focal weakness. - Constitutional Vitals: Temp Pulse Resp BP Pulse Ox 98.0 F 98 H 18 137/64 90 09/16/18 13:52 09/16/18 13:52 09/16/18 13:52 09/16/18 13:52 09/16/18 13:52 General appearance: Present: no acute distress, mild distress, well-nourished Results - Labs CBC & Chem 7: 09/15/18 09:58 09/15/18 09:58 Labs: Laboratory Last Values WBC 9.3 K/mm3 (4.5-11.0) 09/15/18 09:58 RBC 4.61 M/mm3 (3.65-5.03) 09/15/18 09:58 Hgb 13.7 gm/dl (10.1-14.3) 09/15/18 09:58 Hct 42.1 % (30.3-42.9) 09/15/18 09:58 MCV 91 fl (79-97) 09/15/18 09:58 MCH 30 pg (28-32) 09/15/18 09:58 MCHC 33 % (30-34) 09/15/18 09:58 RDW 15.2 % (13.2-15.2) 09/15/18 09:58 Plt Count 247 K/mm3 (140-440) 09/15/18 09:58 Lymph % (Auto) 24.9 % (13.4-35.0) 09/14/18 13:40 [place] % (Auto) 5.3 % (0.0-7.3) 09/14/18 13:40 Eos % (Auto) 3.8 % (0.0-4.3) 09/14/18 13:40 Baso % (Auto) 0.8 % (0.0-1.8) 09/14/18 13:40 Lymph # 1.9 K/mm3 (1.2-5.4) 09/14/18 13:40 [place] # 0.4 K/mm3 (0.0-0.8) 09/14/18 13:40 Eos # 0.3 K/mm3 (0.0-0.4) 09/14/18 13:40 Baso # 0.1 K/mm3 (0.0-0.1) 09/14/18 13:40 Add Manual Diff Complete 09/15/18 09:58 Total Counted 100 09/15/18 09:58 Seg Neutrophils % Rn Spine 09/15/18 09:58 Seg Neuts % (Manual) 94.0 % (40.0-70.0) H 09/15/18 09:58 Band Neutrophils % 2.0 % 09/15/18 09:58 Lymphocytes % (Manual) 2.0 % (13.4-35.0) L 09/15/18 09:58 Reactive Lymphs % (Man) 0 % 09/15/18 09:58 Monocytes % (Manual) 2.0 % (0.0-7.3) 09/15/18 09:58 Eosinophils % (Manual) 0 % (0.0-4.3) 09/15/18 09:58 Basophils % (Manual) 0 % (0.0-1.8) 09/15/18 09:58 Metamyelocytes % 0 % 09/15/18 09:58 Myelocytes % 0 % 09/15/18 09:58 Promyelocytes % 0 % 09/15/18 09:58 Blast Cells % 0 % 09/15/18 09:58 Nucleated RBC % Not Reportable 09/15/18 09:58 Seg Neutrophils # 4.9 K/mm3 (1.8-7.7) 09/14/18 13:40 Seg Neutrophils # Man 8.7 K/mm3 (1.8-7.7) H 09/15/18 09:58 Band Neutrophils # 0.2 K/mm3 09/15/18 09:58 Lymphocytes # (Manual) 0.2 K/mm3 (1.2-5.4) L 09/15/18 09:58 Abs React Lymphs (Man) 0.0 K/mm3 09/15/18 09:58 Monocytes # (Manual) 0.2 K/mm3 (0.0-0.8) 09/15/18 09:58 Eosinophils # (Manual) 0.0 K/mm3 (0.0-0.4) 09/15/18 09:58 Basophils # (Manual) 0.0 K/mm3 (0.0-0.1) 09/15/18 09:58 Metamyelocytes # 0.0 K/mm3 09/15/18 09:58 Myelocytes # 0.0 K/mm3 09/15/18 09:58 Promyelocytes # 0.0 K/mm3 09/15/18 09:58 Blast Cells # 0.0 K/mm3 09/15/18 09:58 WBC Morphology Not Reportable 09/15/18 09:58 Hypersegmented Neuts Not Reportable 09/15/18 09:58 Hyposegmented Neuts Not Reportable 09/15/18 09:58 Hypogranular Neuts Not Reportable 09/15/18 09:58 Smudge Cells Not Reportable 09/15/18 09:58 Toxic Granulation Not Reportable 09/15/18 09:58 Toxic Vacuolation Not Reportable 09/15/18 09:58 Dohle Bodies Not Reportable 09/15/18 09:58 Pelger-Huet Anomaly Not Reportable 09/15/18 09:58 Chantal Rods Not Reportable 09/15/18 09:58 Platelet Estimate Consistent w auto 09/15/18 09:58 Clumped Platelets Not Reportable 09/15/18 09:58 Plt Clumps, EDTA Not Reportable 09/15/18 09:58 Large Platelets Not Reportable 09/15/18 09:58 Giant Platelets Not Reportable 09/15/18 09:58 Platelet Satelliting Not Reportable 09/15/18 09:58 Plt Morphology Comment Not Reportable 09/15/18 09:58 RBC Morphology Normal 09/15/18 09:58 Dimorphic RBCs Not Reportable 09/15/18 09:58 Polychromasia Not Reportable 09/15/18 09:58 Hypochromasia Not Reportable 09/15/18 09:58 Poikilocytosis Not Reportable 09/15/18 09:58 Anisocytosis Not Reportable 09/15/18 09:58 Microcytosis Not Reportable 09/15/18 09:58 Macrocytosis Not Reportable 09/15/18 09:58 Spherocytes Not Reportable 09/15/18 09:58 Pappenheimer Bodies Not Reportable 09/15/18 09:58 Sickle Cells Not Reportable 09/15/18 09:58 Target Cells Not Reportable 09/15/18 09:58 Tear Drop Cells Not Reportable 09/15/18 09:58 Ovalocytes Not Reportable 09/15/18 09:58 Helmet Cells Not Reportable 09/15/18 09:58 Chan-[place] Bodies Not Reportable 09/15/18 09:58 [place] Rings Not Reportable 09/15/18 09:58 [place] Cells Not Reportable 09/15/18 09:58 Bite Cells Not Reportable 09/15/18 09:58 Crenated Cell Not Reportable 09/15/18 09:58 Elliptocytes Not Reportable 09/15/18 09:58 Acanthocytes (Spur) Not Reportable 09/15/18 09:58 Rouleaux Not Reportable 09/15/18 09:58 Hemoglobin C Crystals Not Reportable 09/15/18 09:58 Schistocytes Not Reportable 09/15/18 09:58 Malaria parasites Not Reportable 09/15/18 09:58 [place] Bodies Not Reportable 09/15/18 09:58 Hem Pathologist Commnt No 09/15/18 09:58 PT 13.0 Sec. (12.2-14.9) 09/14/18 13:40 INR 0.93 (0.87-1.13) 09/14/18 13:40 APTT 30.5 Sec. (24.2-36.6) 09/14/18 13:40 POC ABG pH 7.348 (7.35-7.45) L 09/14/18 18:11 POC ABG pCO2 44.4 (35-45) 09/14/18 18:11 POC ABG pO2 73 (80-105) L 09/14/18 18:11 POC ABG HCO3 24.4 (22-26 mml/L) 09/14/18 18:11 POC ABG Total CO2 26 (23-27mmol/L) 09/14/18 18:11 POC ABG O2 Sat 94 09/14/18 18:11 POC ABG Base Excess -1 ((-2) - (+3)mmol/L) 09/14/18 18:11 FiO2 28 % 09/14/18 18:11 Sodium 136 mmol/L (137-145) L 09/15/18 09:58 Potassium 5.2 mmol/L (3.6-5.0) H D 09/15/18 09:58 Chloride 98.7 mmol/L (98-107) 09/15/18 09:58 Carbon Dioxide 27 mmol/L (22-30) 09/15/18 09:58 Anion Gap 16 mmol/L 09/15/18 09:58 BUN 8 mg/dL (7-17) 09/15/18 09:58 Creatinine 0.7 mg/dL (0.7-1.2) 09/15/18 09:58 Estimated GFR > 60 ml/min 09/15/18 09:58 BUN/Creatinine Ratio 11 % 09/15/18 09:58 Glucose 343 mg/dL (65-100) H 09/15/18 09:58 POC Glucose 277 (70-105) H 09/16/18 12:15 Hemoglobin A1c 6.7 % (4-6) H 09/14/18 18:00 Calcium 9.7 mg/dL (8.4-10.2) 09/15/18 09:58 Total Bilirubin 0.50 mg/dL (0.1-1.2) 09/15/18 09:58 AST 7 units/L (5-40) 09/15/18 09:58 ALT 10 units/L (7-56) 09/15/18 09:58 Alkaline Phosphatase 90 units/L (35-129) 09/15/18 09:58 NT-Pro-B Natriuret Pep 17.18 pg/mL (0-900) 09/14/18 13:40 Total Protein 6.6 g/dL (6.3-8.2) 09/15/18 09:58 Albumin 3.6 g/dL (3.9-5) L 09/15/18 09:58 Albumin/Globulin Ratio 1.2 % 09/15/18 09:58 Active Medications - Current Medications Current Medications: Generic Name Dose Route Start Last Admin Trade Name Freq PRN Reason Stop Dose Admin Acetaminophen 650 mg 09/14/18 18:37 Tylenol PO Q4H PRN Pain MILD(1-3)/Fever >100.5/KHAN Albuterol 2.5 mg 09/14/18 18:41 09/15/18 18:13 Proventil IH 2.5 mg Q4HRT PRN Administration Shortness Of Breath Albuterol/Ipratropium 1 ampul 09/15/18 20:00 09/16/18 13:15 Duoneb *Not For Prn Use* IH 1 ampul Q6HRT VIC Administration Arformoterol Tartrate 15 mcg 09/14/18 20:00 09/16/18 09:09 Brovana Nebu IH Not Given Q12HRT VIC Azithromycin 500 mg 09/16/18 22:00 Zithromax PO 09/18/18 22:01 QHS VIC Budesonide 0.5 mg 09/14/18 20:00 09/16/18 09:09 Pulmicort IH 0.5 mg Q12HRT VIC Administration Enoxaparin Sodium 40 mg 09/14/18 20:00 09/16/18 10:37 Lovenox SUB-Q 40 mg QDAY@1000 VIC Administration Escitalopram Oxalate 20 mg 09/14/18 20:00 09/16/18 10:37 Lexapro PO 20 mg DAILY VIC Administration Famotidine 20 mg 09/16/18 22:00 Pepcid PO BID VIC Guaifenesin 200 mg 09/15/18 00:05 09/16/18 14:33 Robitussin PO 200 mg Q4H PRN Administration Cough Hydromorphone HCl 0.5 mg 09/14/18 18:41 09/16/18 15:07 Dilaudid IV 0.5 mg Q3H PRN Administration Pain , Severe (7-10) Ceftriaxone Sodium 2 gm in 100 mls @ 200 mls/hr 09/14/18 21:00 09/15/18 22:17 Rocephin/Ns 2 Gm/100 Ml IV 200 mls/hr Q24H VIC Administration Protocol Insulin Human Isoph/Insulin Regular 25 unit 09/14/18 22:00 09/16/18 10:37 Humulin 70/30 SUB-Q 25 unit BID VIC Administration Insulin Human Lispro 0 unit 09/15/18 18:00 09/16/18 11:30 Humalog SUB-Q 4 unit ACHS VIC Administration Protocol Lisinopril 20 mg 09/14/18 19:00 09/16/18 10:39 Zestril PO 20 mg DAILY VIC Administration Loratadine 10 mg 09/14/18 19:00 09/16/18 10:38 Claritin PO 10 mg QDAY VIC Administration Lorazepam 1 mg 09/15/18 10:14 09/16/18 10:38 Ativan PO 1 mg Q12HR VIC Administration Methylprednisolone Sodium Succinate 80 mg 09/14/18 22:00 09/16/18 13:02 Solu-Medrol IV Not Given Q8HR VIC Ondansetron HCl 4 mg 09/14/18 18:37 Zofran IV Q8H PRN Nausea And Vomiting Oxycodone/Acetaminophen 1 tab 09/15/18 10:10 09/16/18 13:01 Percocet 5/325 PO 1 tab Q4H PRN Administration Pain, Moderate (4-6) Pantoprazole Sodium 20 mg 09/14/18 20:00 09/16/18 10:37 Protonix PO 20 mg QDAY VIC Administration Sodium Chloride 10 ml 09/14/18 22:00 09/16/18 10:39 Sodium Chloride Flush Syringe 10 Ml IV 10 ml BID VIC Administration Sodium Chloride 10 ml 09/14/18 18:37 Sodium Chloride Flush Syringe 10 Ml IV PRN PRN LINE FLUSH
--- NOTE | 2018-09-16 16:29 | Consultation ---
History of Present Illness Consult date: 09/16/18 Requesting physician: ANNIA NERI Reason for consult: COPD History of present illness: 53 y/o morbidly obese female smoker admitted with COPD exacerbation. I last saw her inpatient in Jun. Vinicius saw her last month and now she is admitted this month with same complaint. Patient continues to smoke and is non compliant with outpatient therapy and follow up. Past History Past Medical History: COPD, diabetes, hypertension, other (tobacco abuse and morbid obesity) Medications and Allergies Allergies Allergy/AdvReac Type Severity Reaction Status Date / Time Penicillins Allergy Angioedema Verified 09/14/18 13:55 prednisone Allergy Unknown Verified 09/14/18 13:55 bupropion HCl AdvReac Unknown Verified 09/14/18 13:55 [From Wellbutrin] divalproex sodium AdvReac Unknown Verified 09/14/18 13:55 [From Depakote] fluoxetine HCl [From Prozac] AdvReac Unknown Verified 09/14/18 13:55 lithium AdvReac Unknown Verified 09/14/18 13:55 Home Medications Medication Instructions Recorded Confirmed Last Taken Type Insulin Aspart Protam & Aspart 15 units SUB-Q TID 30 Days 07/30/18 09/14/18 Unknown Rx [NovoLOG Mix 70-30 Flexpen] insuln.pen Lisinopril 20 mg PO DAILY #30 tablet 07/30/18 09/14/18 Unknown Rx Loratadine [Claritin] 10 mg PO QDAY #10 tablet 07/30/18 09/14/18 Unknown Rx Escitalopram Oxalate [Lexapro] 20 mg PO QDAY 09/14/18 09/14/18 Unknown History LORazepam [Ativan] 1 mg PO Q12H 09/14/18 09/14/18 09/14/18 History Omeprazole 20 mg PO QDAY 09/14/18 09/14/18 Unknown History oxyCODONE /ACETAMINOPHEN [Percocet 1 tab PO Q8H PRN 09/14/18 09/14/18 Unknown History 5/325 mg] ALBUTEROL Inhaler(NF) [VENTOLIN 2 puff IH Q4H PRN #1 can 09/17/18 Unknown Rx Inhaler(NF)] ALBUTEROL NEB's [Proventil 0.083% 2.5 mg IH QID PRN #60 nebu 09/17/18 Unknown Rx NEBS] Budesonide/Formoterol Fumarate 1 puff IH BID #60 hfa.aer.ad 09/17/18 Unknown Rx [Symbicort 160-4.5 Mcg Inhaler] Prednisone [predniSONE 10 mg 10 mg PO .TAPER #1 tab.ds.pk 09/17/18 Unknown Rx (6-Day Pack, 21 Tabs)] guaiFENesin [Robitussin] 200 mg PO Q4H PRN #1 bottle 09/17/18 Unknown Rx levoFLOXacin [Levaquin TAB] 500 mg PO QDAY #7 tablet 09/17/18 Unknown Rx Active Meds: Active Medications Acetaminophen (Tylenol) 650 mg PO Q4H PRN PRN Reason: Pain MILD(1-3)/Fever >100.5/KHAN Albuterol (Proventil) 2.5 mg IH Q4HRT PRN PRN Reason: Shortness Of Breath Last Admin: 09/15/18 18:13 Dose: 2.5 mg Documented by: Albuterol/Ipratropium (Duoneb *Not For Prn Use*) 1 ampul IH Q6HRT [facility] Last Admin: 09/16/18 13:15 Dose: 1 ampul Documented by: Arformoterol Tartrate (Brovana Nebu) 15 mcg IH Q12HRT [facility] Last Admin: 09/16/18 09:09 Dose: Not Given Documented by: Azithromycin (Zithromax) 500 mg PO QHS [facility] Stop: 09/18/18 22:01 Budesonide (Pulmicort) 0.5 mg IH Q12HRT [facility] Last Admin: 09/16/18 09:09 Dose: 0.5 mg Documented by: Enoxaparin Sodium (Lovenox) 40 mg SUB-Q QDAY@1000 [facility] Last Admin: 09/16/18 10:37 Dose: 40 mg Documented by: Escitalopram Oxalate (Lexapro) 20 mg PO DAILY [facility] Last Admin: 09/16/18 10:37 Dose: 20 mg Documented by: Famotidine (Pepcid) 20 mg PO BID [facility] Guaifenesin (Robitussin) 200 mg PO Q4H PRN PRN Reason: Cough Last Admin: 09/16/18 14:33 Dose: 200 mg Documented by: Hydromorphone HCl (Dilaudid) 0.5 mg IV Q3H PRN PRN Reason: Pain , Severe (7-10) Last Admin: 09/16/18 15:07 Dose: 0.5 mg Documented by: Ceftriaxone Sodium (Rocephin/Ns 2 Gm/100 Ml) 2 gm in 100 mls @ 200 mls/hr IV Q24H [facility]; Protocol Last Admin: 09/15/18 22:17 Dose: 200 mls/hr Documented by: Insulin Human Isoph/Insulin Regular (Humulin 70/30) 25 unit SUB-Q BID [facility] Last Admin: 09/16/18 10:37 Dose: 25 unit Documented by: Insulin Human Lispro (Humalog) 0 unit SUB-Q ACHS [facility]; Protocol Last Admin: 09/16/18 11:30 Dose: 4 unit Documented by: Lisinopril (Zestril) 20 mg PO DAILY [facility] Last Admin: 09/16/18 10:39 Dose: 20 mg Documented by: Loratadine (Claritin) 10 mg PO QDAY [facility] Last Admin: 09/16/18 10:38 Dose: 10 mg Documented by: Lorazepam (Ativan) 1 mg PO Q12HR [facility] Last Admin: 09/16/18 10:38 Dose: 1 mg Documented by: Methylprednisolone Sodium Succinate (Solu-Medrol) 80 mg IV Q8HR [facility] Last Admin: 09/16/18 13:02 Dose: Not Given Documented by: Ondansetron HCl (Zofran) 4 mg IV Q8H PRN PRN Reason: Nausea And Vomiting Oxycodone/Acetaminophen (Percocet 5/325) 1 tab PO Q4H PRN PRN Reason: Pain, Moderate (4-6) Last Admin: 09/16/18 13:01 Dose: 1 tab Documented by: Pantoprazole Sodium (Protonix) 20 mg PO QDAY [facility] Last Admin: 09/16/18 10:37 Dose: 20 mg Documented by: Sodium Chloride (Sodium Chloride Flush Syringe 10 Ml) 10 ml IV BID [facility] Last Admin: 09/16/18 10:39 Dose: 10 ml Documented by: Sodium Chloride (Sodium Chloride Flush Syringe 10 Ml) 10 ml IV PRN PRN PRN Reason: LINE FLUSH Review of Systems All systems: negative Physical Examination Vital signs: Vital Signs Temp Pulse Resp BP Pulse Ox 97.4 F L 94 H 26 H 126/66 98 09/14/18 13:27 09/14/18 13:27 09/14/18 13:27 09/14/18 13:27 09/14/18 13:27 General appearance: no acute distress, alert, other (morbidly obese) Eyes: non-icteric ENT: oropharynx moist Neck: supple, other (large in circumference) Effort: normal Ascultation: Bilateral: wheezes Percussion: Bilateral: not dull Tactile fremitus: Bilateral: normal Cardiovascular: regular rate and rhythm Gastrointestinal: normoactive bowel sounds, soft, other (obese) Results - Laboratory Findings CBC and BMP: 09/17/18 07:30 09/17/18 07:30 ABG POC ABG pH 7.348 (7.35-7.45) L 09/14/18 18:11 POC ABG pCO2 44.4 (35-45) 09/14/18 18:11 POC ABG pO2 73 (80-105) L 09/14/18 18:11 POC ABG HCO3 24.4 (22-26 mml/L) 09/14/18 18:11 POC ABG Total CO2 26 (23-27mmol/L) 09/14/18 18:11 POC ABG O2 Sat 94 09/14/18 18:11 PT/INR, D-dimer PT 13.0 Sec. (12.2-14.9) 09/14/18 13:40 INR 0.93 (0.87-1.13) 09/14/18 13:40 Abnormal lab findings: Abnormal Labs 09/14/18 09/14/18 09/14/18 13:40 13:40 18:00 RBC 5.09 H Hgb 15.1 H Hct 46.3 H RDW 15.6 H Seg Neuts % (Manual) Lymphocytes % (Manual) Seg Neutrophils # Man Lymphocytes # (Manual) POC ABG pH POC ABG pO2 Sodium Potassium Glucose 156 H POC Glucose Hemoglobin A1c 6.7 H Albumin 3.8 L 09/14/18 09/14/18 09/14/18 18:11 18:58 21:31 RBC Hgb Hct RDW Seg Neuts % (Manual) Lymphocytes % (Manual) Seg Neutrophils # Man Lymphocytes # (Manual) POC ABG pH 7.348 L POC ABG pO2 73 L Sodium Potassium Glucose POC Glucose 336 H 343 H Hemoglobin A1c Albumin 09/15/18 09/15/18 09/15/18 07:46 09:58 09:58 RBC Hgb Hct RDW Seg Neuts % (Manual) 94.0 H Lymphocytes % (Manual) 2.0 L Seg Neutrophils # Man 8.7 H Lymphocytes # (Manual) 0.2 L POC ABG pH POC ABG pO2 Sodium 136 L Potassium 5.2 H D Glucose 343 H POC Glucose 226 H Hemoglobin A1c Albumin 3.6 L 09/15/18 09/15/18 09/15/18 11:10 16:19 21:38 RBC Hgb Hct RDW Seg Neuts % (Manual) Lymphocytes % (Manual) Seg Neutrophils # Man Lymphocytes # (Manual) POC ABG pH POC ABG pO2 Sodium Potassium Glucose POC Glucose 278 H 285 H 322 H Hemoglobin A1c Albumin 09/16/18 09/16/18 08:33 12:15 RBC Hgb Hct RDW Seg Neuts % (Manual) Lymphocytes % (Manual) Seg Neutrophils # Man Lymphocytes # (Manual) POC ABG pH POC ABG pO2 Sodium Potassium Glucose POC Glucose 239 H 277 H Hemoglobin A1c Albumin Assessment and Plan 53 y/o obese female with COPD exacerbation. 1. Suggest stopping abx therapy 2. Change steroids to PO prednisone and taper over 2 weeks time starting at 60 daily 3. Same outpatient COPD regimen 4. Smoking cessation 5. Abnormal electrolytes per primary team Thank you for this consult. Will sign off. Patient, if chooses is welcome to follow up in the office as we have set up many times before.
[2018-09-16] MEDS: PEPCID PO SCH (21:02)
[2018-09-16] MEDS ORDERED: ZITHROMAX PO SCH (22:00)
[2018-09-16] MEDS: ROCEPHIN/NS 2 GM/100 ML 2 GM/100 ML BAG IV SCH (22:45)
[2018-09-17] MEDS: DUONEB *Not for PRN Use IH SCH ×4 (02:20→13:39)
[2018-09-17] MEDS: DILAUDID IV PRN (03:07)
[2018-09-17] MEDS: SOLU-Medrol IV SCH (05:32)
[2018-09-17] MEDS: PERCOCET 5/325 PO PRN ×2 (06:24→10:44)
[2018-09-17] MEDS: BROVANA NEBU IH SCH (07:06)
[2018-09-17] MEDS: PULMICORT IH SCH (07:06)
[2018-09-17 08:24] LABS: Hematocrit 40.2 % (30.3-42.9); Lymphocytes # (Auto) 0.9 K/mm3 (1.2-5.4); Lymphocytes % (Auto) 8.2 % (13.4-35.0); Mean Corpuscular HGB Conc 32 % (30-34); Mean Corpuscular Volume 91 fl (79-97); Monocytes # (Auto) 0.3 K/mm3 (0.0-0.8); Monocytes % (Auto) 2.7 % (0.0-7.3); Platelet Count 256 K/mm3 (140-440); Red Blood Count 4.42 M/mm3 (3.65-5.03); Red Cell Distribution Width 15.7 % (13.2-15.2)
[2018-09-17 08:42] LABS: BUN/Creatinine Ratio 23; Blood Urea Nitrogen 16 mg/dL (7-17); Calcium 9.6 mg/dL (8.4-10.2); Hemolysis Index 2
[2018-09-17] MEDS: HumaLOG SUB-Q SCH ×2 (08:56→12:54)
[2018-09-17] MEDS: ATIVAN PO SCH (09:54)
[2018-09-17] MEDS: ZESTRIL PO SCH (09:55)
[2018-09-17] MEDS: PEPCID PO SCH (09:55)
[2018-09-17] MEDS: LEXAPRO PO SCH (09:55)
[2018-09-17] MEDS: CLARITIN PO SCH (09:55)
[2018-09-17] MEDS: LOVENOX SUB-Q SCH (09:56)
[2018-09-17] MEDS: PROTONIX PO SCH (09:56)
[2018-09-17] MEDS: SODIUM CHLORIDE FLUSH SYRINGE 10 ML IV SCH (09:56)
--- NOTE | 2018-09-17 10:07 | Discharge Summary ---
Providers - Providers Date of Admission: 09/14/18 18:37 Attending physician: ANNIA NERI MD 09/16/18 15:25 Consult to Physician [CONS] Routine Comment: Consulting Provider: CHAD CONNER Physician Instructions: Reason For Exam: COPD exacerbation, no significant improvement Primary care physician: BETO MCKEON Hospitalization Reason for admission: COPD exacerbation, acute on chronic hypoxic respiratory failure Condition: Stable Pertinent studies: CTA chest negative for PE Hospital course: 53-year-old female with multiple medical problems including COPD, hypertension, congestive heart failure, insulin-dependent diabetes and arthritis/bipolar and schizoaffective disorder comes in for increasing shortness of breath and coughing and wheezing for 1 week. Cough productive of mucoid sputum to yellow sputum. Patient took Z-Joe with no relief. No fever or chills. Her plasma processing centrifuge operator is Dr. Corbin. Patient was recently admitted and discharged on 08/14/2018 after being treated for COPD exacerbation and respiratory failure. Patient has home nebulizer machine, medicines for ne bulizer machine and home oxygen. Patient continues to smoke. Patient was admitted and put for COPD exacerbation according to COPD protocol. CTA chest was negative for PE. Patient showed improvement and discharged home in a stable condition. Pulmonary consult appreciated. Patient was admitted previously for the same complaint. Patient was noncompliant with treatment and continued to smoke. Patient was hemodynamically stable at the time of discharge. Patient has home oxygen and uses 3 L/m. Appropriate medication scripts were given as the time of discharge. Patient was seen by Dr. Colvin in the office. Patient is active tobacco smoker and not ready to quit. Patient has home O2. Keep appointments with PCP, psych Disposition: DC-01 TO HOME OR SELFCARE Time spent for discharge: 32 minutes - Discharge Diagnoses (1) COPD exacerbation Status: Acute (2) Malnutrition Status: Acute Qualifiers: Protein-calorie malnutrition severity: mild (3) Morbid obesity with BMI of 50.0-59.9, adult Status: Acute (4) Bipolar disorder Status: Chronic Qualifiers: Active/Remission status: in full remission (5) Chronic pain syndrome Status: Chronic (6) Nicotine dependence Status: Chronic Qualifiers: Nicotine product type: cigarettes (7) Oxygen dependent Status: Chronic (8) Diabetes mellitus type 2 in obese Status: Chronic (9) HTN (hypertension) Status: Chronic Qualifiers: Hypertension type: essential hypertension Qualified Code(s): I10 - Essential (primary) hypertension Core Measure Documentation - Palliative Care Palliative Care/ Comfort Measures: Not Applicable - Core Measures Any of the following diagnoses?: none Exam - Physical Exam Narrative exam: In mild respiratory distress. The patient is morbidly obese. Vital signs as documented. Head exam is unremarkable. No scleral icterus . Neck is without jugular venous distension, thyromegaly, or carotid bruits. Lungs wheezing gone over the chest. Cardiac exam reveals regular rate and Rhythm. Abdominal exam reveals normal bowel sounds. Extremities are nonedematous and both femoral and pedal pulses are normal. SKIP LOCATOR: Alert and oriented 3. No focal weakness. - Constitutional Vitals: Temp Pulse Resp BP Pulse Ox 97.6 F 85 20 150/70 99 09/17/18 06:26 09/17/18 09:55 09/17/18 07:20 09/17/18 09:55 09/17/18 07:06 Plan Special Instructions: smoking cessation Follow up with: BETO MCKEON MD [Primary Care Provider] - 7 Days Prescriptions: levoFLOXacin [Levaquin TAB] 500 mg PO QDAY #7 tablet Prednisone [predniSONE 10 mg (6-Day Pack, 21 Tabs)] 10 mg PO .TAPER #1 tab.ds.pk ALBUTEROL NEB's [Proventil 0.083% NEBS] 2.5 mg IH QID PRN #60 nebu PRN Reason: Shortness Of Breath guaiFENesin [Robitussin] 200 mg PO Q4H PRN #1 bottle PRN Reason: Cough Budesonide/Formoterol Fumarate [Symbicort 160-4.5 Mcg Inhaler] 1 puff IH BID #60 hfa.aer.ad ALBUTEROL Inhaler(NF) [VENTOLIN Inhaler(NF)] 2 puff IH Q4H PRN #1 can PRN Reason: Shortness Of Breath
[2018-09-17] MEDS: PROVENTIL IH PRN (12:06)
[2018-09-17 13:40] VITALS: BP 136/68
== END 2018-09-17 13:45 | disposition home or self-care (01) | DRG 189 ==
LOC: ED 13:27 → 3A 18:37
PROVIDERS: ADMIT Internal Medicine; ATTEND Internal Medicine
PROC: 4A033R1 Measurement of Arterial Saturation, Peripheral, Percutaneous Approach (ICD-10-PCS; principal; 2018-09-17)
DX: J96.21 Acute and chronic respiratory failure with hypoxia (principal); J44.1 Chronic obstructive pulmonary disease with (acute) exacerbation; Z68.43 Body mass index [BMI] 50.0-59.9, adult; E44.1 Mild protein-calorie malnutrition; E66.01 Morbid (severe) obesity due to excess calories; I11.0 Hypertensive heart disease with heart failure; I50.9 Heart failure, unspecified; M19.90 Unspecified osteoarthritis, unspecified site; F41.9 Anxiety disorder, unspecified; F17.210 Nicotine dependence, cigarettes, uncomplicated; G89.4 Chronic pain syndrome; E11.9 Type 2 diabetes mellitus without complications; F12.90 Cannabis use, unspecified, uncomplicated; F25.9 Schizoaffective disorder, unspecified; Z88.0 Allergy status to penicillin; Z88.8 Allergy status to other drugs, medicaments and biological substances; Z71.3 Dietary counseling and surveillance; Z90.710 Acquired absence of both cervix and uterus; Z98.1 Arthrodesis status; Z99.81 Dependence on supplemental oxygen; Z90.49 Acquired absence of other specified parts of digestive tract; Z79.4 Long term (current) use of insulin; Z71.6 Tobacco abuse counseling
CPT/HCPCS: 36415; 71045; 71275; 80048; 80053; 82803; 82962; 83036; 83880; 85007; 85025; 85610; 85730; 93005; 93010; 94640; 94760; 99406; G0378; J0456; J0696; J1170; J1650; J1815; J2930; J3475; J7050; Q9967

== ENCOUNTER 2018-11-05 01:43 | Inpatient (IN) | payer MEDICARE ==
[2018-11-05] MEDS ORDERED: PROVENTIL IH ONE (02:06)
[2018-11-05] MEDS ORDERED: ATROVENT IH ONE (02:06)
[2018-11-05] MEDS ORDERED: MAGNESIUM SULFATE 1 GM in NACL 0.9% 50 ML IV ONE (02:06)
[2018-11-05] MEDS ORDERED: ATIVAN PO ONE (02:14)
--- NOTE | 2018-11-05 02:53 | XRay Report ---
PROCEDURE: XR CHEST 1V AP TECHNIQUE: Chest radiograph single view. HISTORY: resp distress COMPARISONS: August 11, 2018 . FINDINGS: Heart: Normal. Mediastinum/Vessels: Normal. Lungs/Pleural space: Normal. Bony thorax: No acute osseous abnormality. Life support devices: None. IMPRESSION: No acute cardiopulmonary abnormality. This document is electronically signed by Lopez Zarate MD., November 05 2018 02:51:08 AM ET
[2018-11-05 02:57] LABS: Basophils # (Auto) 0.1 K/mm3 (0.0-0.1); Basophils % (Auto) 0.6 % (0.0-1.8); Eosinophils # (Auto) 0.3 K/mm3 (0.0-0.4); Eosinophils % (Auto) 3.9 % (0.0-4.3); Hematocrit 40.5 % (30.3-42.9); Hemoglobin 14.5 gm/dl (10.1-14.3); Lymphocytes # (Auto) 2.2 K/mm3 (1.2-5.4); Lymphocytes % (Auto) 25.3 % (13.4-35.0); Mean Corpuscular HGB Conc 36 % (30-34); Mean Corpuscular Volume 89 fl (79-97); Monocytes # (Auto) 0.6 K/mm3 (0.0-0.8); Monocytes % (Auto) 6.4 % (0.0-7.3); Platelet Count 263 K/mm3 (140-440); Red Blood Count 4.55 M/mm3 (3.65-5.03); Red Cell Distribution Width 14.6 % (13.2-15.2)
[2018-11-05] MEDS ORDERED: NORCO 5/325 PO ONE (03:12)
[2018-11-05 03:17] LABS: BUN/Creatinine Ratio 9; Blood Urea Nitrogen 6 mg/dL (7-17); Calcium 9.7 mg/dL (8.4-10.2); Hemolysis Index 10
--- NOTE | 2018-11-05 03:58 | Emergency Department Report ---
ED Shortness of Breath HPI - General Chief Complaint: Dyspnea/Respdistress Stated Complaint: ANN/SOB Time Seen by Provider: 11/05/18 01:58 Source: EMS Mode of arrival: Stretcher Limitations: Physical Limitation - History of Present Illness Initial Comments: Patient is a 53-year-old female who is presenting with shortness of breath. Patient has a history of COPD and is on 2 L of oxygen at home. Patient states she's been doing breathing treatments all week with no improvement. Patient states that she has some pressure in her chest tightness. Patient has a cough that is productive of clear sputum. Patient denies any fevers chills nausea vomiting diarrhea at this time. - Related Data Home Medications Medication Instructions Recorded Confirmed Last Taken Escitalopram Oxalate [Lexapro] 20 mg PO QDAY 09/14/18 09/14/18 Unknown LORazepam [Ativan] 1 mg PO Q12H 09/14/18 09/14/18 09/14/18 Omeprazole 20 mg PO QDAY 09/14/18 09/14/18 Unknown oxyCODONE /ACETAMINOPHEN [Percocet 1 tab PO Q8H PRN 09/14/18 09/14/18 Unknown 5/325 mg] Previous Rx's Medication Instructions Recorded Last Taken Type Insulin Aspart Protam & Aspart 15 units SUB-Q TID 30 Days 07/30/18 Unknown Rx [NovoLOG Mix 70-30 Flexpen] insuln.pen Lisinopril 20 mg PO DAILY #30 tablet 07/30/18 Unknown Rx Loratadine [Claritin] 10 mg PO QDAY #10 tablet 07/30/18 Unknown Rx ALBUTEROL Inhaler(NF) [VENTOLIN 2 puff IH Q4H PRN #1 can 09/17/18 Unknown Rx Inhaler(NF)] ALBUTEROL NEB's [Proventil 0.083% 2.5 mg IH QID PRN #60 nebu 09/17/18 Unknown Rx NEBS] Budesonide/Formoterol Fumarate 1 puff IH BID #60 hfa.aer.ad 09/17/18 Unknown Rx [Symbicort 160-4.5 Mcg Inhaler] Prednisone [predniSONE 10 mg 10 mg PO .TAPER #1 tab.ds.pk 09/17/18 Unknown Rx (6-Day Pack, 21 Tabs)] guaiFENesin [Robitussin] 200 mg PO Q4H PRN #1 bottle 09/17/18 Unknown Rx levoFLOXacin [Levaquin TAB] 500 mg PO QDAY #7 tablet 09/17/18 Unknown Rx Allergies Allergy/AdvReac Type Severity Reaction Status Date / Time Penicillins Allergy Angioedema Verified 09/14/18 13:55 prednisone Allergy Unknown Verified 09/14/18 13:55 bupropion HCl AdvReac Unknown Verified 09/14/18 13:55 [From Wellbutrin] divalproex sodium AdvReac Unknown Verified 09/14/18 13:55 [From Depakote] fluoxetine HCl [From Prozac] AdvReac Unknown Verified 09/14/18 13:55 lithium AdvReac Unknown Verified 09/14/18 13:55 ED Review of Systems ROS: Stated complaint: ANN/SOB Other details as noted in HPI Comment: All other systems reviewed and negative ED Past Medical Hx - Past Medical History Hx Hypertension: Yes Hx Heart Attack/AMI: No Hx Congestive Heart Failure: Yes Hx Diabetes: Yes Hx Deep Vein Thrombosis: No Hx Pulmonary Embolism: No Hx Liver Disease: No Hx Arthritis: Yes Hx Psychiatric Treatment: Yes (Bipolar, Schzioaffective) Hx Asthma: Yes Hx COPD: Yes Hx Tuberculosis: No Additional medical history: Bronchitis, Home O2 2 liters, Morbid Obesity, - Surgical History Hx Coronary Stent: No Hx Pacemaker: No Hx Internal Defibrillator: No Additional Surgical History: spinal fusion, left hip, Hysterectomy - Social History Smoking Status: Current Every Day Smoker Substance Use Type: None - Medications Home Medications: Home Medications Medication Instructions Recorded Confirmed Last Taken Type Insulin Aspart Protam & Aspart 15 units SUB-Q TID 30 Days 07/30/18 09/14/18 Unknown Rx [NovoLOG Mix 70-30 Flexpen] insuln.pen Lisinopril 20 mg PO DAILY #30 tablet 07/30/18 09/14/18 Unknown Rx Loratadine [Claritin] 10 mg PO QDAY #10 tablet 07/30/18 09/14/18 Unknown Rx Escitalopram Oxalate [Lexapro] 20 mg PO QDAY 09/14/18 09/14/18 Unknown History LORazepam [Ativan] 1 mg PO Q12H 09/14/18 09/14/18 09/14/18 History Omeprazole 20 mg PO QDAY 09/14/18 09/14/18 Unknown History oxyCODONE /ACETAMINOPHEN [Percocet 1 tab PO Q8H PRN 09/14/18 09/14/18 Unknown History 5/325 mg] ALBUTEROL Inhaler(NF) [VENTOLIN 2 puff IH Q4H PRN #1 can 09/17/18 Unknown Rx Inhaler(NF)] ALBUTEROL NEB's [Proventil 0.083% 2.5 mg IH QID PRN #60 nebu 09/17/18 Unknown Rx NEBS] Budesonide/Formoterol Fumarate 1 puff IH BID #60 hfa.aer.ad 09/17/18 Unknown Rx [Symbicort 160-4.5 Mcg Inhaler] Prednisone [predniSONE 10 mg 10 mg PO .TAPER #1 tab.ds.pk 09/17/18 Unknown Rx (6-Day Pack, 21 Tabs)] guaiFENesin [Robitussin] 200 mg PO Q4H PRN #1 bottle 09/17/18 Unknown Rx levoFLOXacin [Levaquin TAB] 500 mg PO QDAY #7 tablet 09/17/18 Unknown Rx ED Physical Exam - General Limitations: Physical Limitation General appearance: alert, in no apparent distress - Head Head exam: Present: atraumatic, normocephalic - Eye Eye exam: Present: normal appearance, PERRL, EOMI - ENT ENT exam: Present: mucous membranes moist - Neck Neck exam: Present: normal inspection - Respiratory Respiratory exam: Present: respiratory distress, wheezes, chest wall tenderness. Absent: normal lung sounds bilaterally, rales, rhonchi, stridor - Cardiovascular Cardiovascular Exam: Present: regular rate, normal rhythm, normal heart sounds. Absent: systolic murmur, diastolic murmur, rubs, gallop - GI/Abdominal GI/Abdominal exam: Present: soft, normal bowel sounds. Absent: distended, tenderness, guarding - Extremities Exam Extremities exam: Present: normal inspection - Back Exam Back exam: Present: normal inspection - Neurological Exam Neurological exam: Present: alert, oriented X3 - Psychiatric Psychiatric exam: Present: normal affect, normal mood - Skin Skin exam: Present: warm, dry, intact, normal color. Absent: rash ED Course Vital Signs 11/05/18 11/05/18 11/05/18 02:01 02:30 03:19 Temperature 98.4 F Pulse Rate 91 H Pulse Rate [ 84 Anterior Bilateral Throughout] Respiratory 35 H 27 H Rate Respiratory 20 Rate [Anterior Bilateral Throughout] Blood Pressure 146/93 Blood Pressure [Left] O2 Sat by Pulse 95 Oximetry 11/05/18 11/05/18 03:20 03:22 Temperature Pulse Rate 76 Pulse Rate [ Anterior Bilateral Throughout] Respiratory 29 H 29 H Rate Respiratory Rate [Anterior Bilateral Throughout] Blood Pressure Blood Pressure 134/84 [Left] O2 Sat by Pulse 97 97 Oximetry ED Medical Decision Making - Lab Data Result diagrams: 11/05/18 02:30 11/05/18 02:30 - Radiology Data CXR WNL - Medical Decision Making When patient arrived to the emergency department she was receiving a neb treatment from EMS. Patient's continue to wheeze. Patient was given additional continuous nebulizer treatment. Patient received 2 g of magnesium Solu-Medrol. Patient's continues to have some respiratory distress and wheezing. Patient is to be admitted to the hospitalist service for further management. Critical Care Time: Yes (30) Critical care attestation.: If time is entered above; I have spent that time in minutes in the direct care of this critically ill patient, excluding procedure time. ED Disposition Clinical Impression: Acute exacerbation of chronic obstructive pulmonary disease (COPD) Disposition: OP ADMIT IP TO THIS HOSP Is pt being admited?: Yes Does the pt Need Aspirin: No Condition: Stable Instructions: Chronic Obstructive Pulmonary Disease (ED) Time of Disposition: 03:58
[2018-11-05] MEDS ORDERED: D50W (25GM) Syringe IV PRN (04:15)
[2018-11-05] MEDS ORDERED: ZOFRAN IV PRN (04:15)
[2018-11-05] MEDS ORDERED: SOLU-Medrol IV SCH (04:21)
--- NOTE | 2018-11-05 04:24 | History and Physical Report ---
History of Present Illness Date of examination: 11/05/18 History of present illness: 53-year-old woman with a history of hypertension, diabetes, COPD, CHF, bipolar, schizophrenia, chronic pain comes emergency room with complaints of shortness of breath started today. Also complaining of cough productive of yellow phlegm. Review of systems Constitutional: no weight loss, chills, fever Ears, eyes, nose, mouth and throat: no nasal congestion, no nasal discharge, no sinus pressure, no vision change, no red eye. Neck: No neck pain or rigidity. Cardiovascular: no palpitations, chest pain Respiratory: + cough, shortness of breath Gastrointestinal: no hematochezia, abdominal pain Genitourinary : no frequency , no hematuria Musculoskeletal: no joint swelling or muscle ache Integumentary: no rash, no pruritis Neurological: no parathesias, no focal weakness Endocrine: no cold or heat intolerance, no polyuria or polydipsia Hematologic/Lymphatic: no easy bruising, no easy bleeding, no gland swelling Allergic/Immunologic: no urticaria, no angioedema. PAST MEDICAL HISTORY: hypertension, diabetes, COPD, CHF, bipolar, schizophrenia, chronic pain PAST SURGICAL HISTORY: Hysterectomy, 2, spinal fusion, shoulder SOCIAL HISTORY: Smoke 1 pack a day, social alcohol no drugs FAMILY HISTORY: Hypertension Medications and Allergies Allergies Allergy/AdvReac Type Severity Reaction Status Date / Time Penicillins Allergy Angioedema Verified 09/14/18 13:55 prednisone Allergy Unknown Verified 09/14/18 13:55 bupropion HCl AdvReac Unknown Verified 09/14/18 13:55 [From Wellbutrin] divalproex sodium AdvReac Unknown Verified 09/14/18 13:55 [From Depakote] fluoxetine HCl [From Prozac] AdvReac Unknown Verified 09/14/18 13:55 lithium AdvReac Unknown Verified 09/14/18 13:55 Home Medications Medication Instructions Recorded Confirmed Last Taken Type Insulin Aspart Protam & Aspart 15 units SUB-Q TID 30 Days 07/30/18 09/14/18 Unknown Rx [NovoLOG Mix 70-30 Flexpen] insuln.pen Lisinopril 20 mg PO DAILY #30 tablet 07/30/18 09/14/18 Unknown Rx Loratadine [Claritin] 10 mg PO QDAY #10 tablet 07/30/18 09/14/18 Unknown Rx Escitalopram Oxalate [Lexapro] 20 mg PO QDAY 09/14/18 09/14/18 Unknown History LORazepam [Ativan] 1 mg PO Q12H 09/14/18 09/14/18 09/14/18 History Omeprazole 20 mg PO QDAY 09/14/18 09/14/18 Unknown History oxyCODONE /ACETAMINOPHEN [Percocet 1 tab PO Q8H PRN 09/14/18 09/14/18 Unknown History 5/325 mg] ALBUTEROL Inhaler(NF) [VENTOLIN 2 puff IH Q4H PRN #1 can 09/17/18 Unknown Rx Inhaler(NF)] ALBUTEROL NEB's [Proventil 0.083% 2.5 mg IH QID PRN #60 nebu 09/17/18 Unknown Rx NEBS] Budesonide/Formoterol Fumarate 1 puff IH BID #60 hfa.aer.ad 09/17/18 Unknown Rx [Symbicort 160-4.5 Mcg Inhaler] Prednisone [predniSONE 10 mg 10 mg PO .TAPER #1 tab.ds.pk 09/17/18 Unknown Rx (6-Day Pack, 21 Tabs)] guaiFENesin [Robitussin] 200 mg PO Q4H PRN #1 bottle 09/17/18 Unknown Rx levoFLOXacin [Levaquin TAB] 500 mg PO QDAY #7 tablet 09/17/18 Unknown Rx Active Meds: Active Medications Acetaminophen (Tylenol) 650 mg PO Q4H PRN PRN Reason: Pain MILD(1-3)/Fever >100.5/KHAN Albuterol/Ipratropium (Duoneb *Not For Prn Use*) 1 ampul IH Q6HRT VIC Dextrose (D50w (25gm) Syringe) 50 ml IV PRN PRN PRN Reason: Hypoglycemia Enoxaparin Sodium (Lovenox) 30 mg SUB-Q QDAY VIC Levofloxacin/Dextrose (Levaquin 500mg/100ml) 500 mg in 100 mls @ 100 mls/hr IV Q24HR VIC; Protocol Insulin Human Lispro (Humalog) 0 unit SUB-Q ACHS VIC; Protocol Ondansetron HCl (Zofran) 4 mg IV Q8H PRN PRN Reason: Nausea And Vomiting Sodium Chloride (Sodium Chloride Flush Syringe 10 Ml) 10 ml IV BID VIC Sodium Chloride (Sodium Chloride Flush Syringe 10 Ml) 10 ml IV PRN PRN PRN Reason: LINE FLUSH Exam - Physical Exam Narrative exam: General Apperance: The patient lying in bed, breathing comfortable HEENT: Normocephalic, atraumatic. Pupils equally round and reactive to light, EOMI, no sclericterus or JVD or thyromegaly or nodule. , no carotid bruit, m ucous membranes moist, no exudate or erythema Heart: S1-S2, regular is rhythm Lungs: wheezing bilaterally, breathing comfortable Abdomen: Positive bowel sounds, soft, nontender, nondistended, no organomegaly Extremities: No edema cyanosis clubbing Skin: no rash, nodule, warm and dry Neuro: cranial nerves 2-12 intact, speech is fluent, motor/sensory intact - Constitutional Vitals: Temp Pulse Resp BP Pulse Ox 98.4 F 76 29 H 134/84 97 11/05/18 02:01 11/05/18 03:20 11/05/18 03:22 11/05/18 03:20 11/05/18 03:22 Results - Labs CBC & Chem 7: 11/08/18 05:55 11/06/18 07:42 Labs: Abnormal lab results 11/05/18 11/05/18 11/05/18 Range/Units 02:30 02:30 02:51 Hgb 14.5 H (10.1-14.3) gm/dl MCHC 36 H (30-34) % POC ABG pH 7.322 L (7.35-7.45) POC ABG pCO2 55.5 H (35-45) Carbon Dioxide 31 H (22-30) mmol/L BUN 6 L (7-17) mg/dL Assessment and Plan Assessment Respiratory failure acute on chronic COPD exacerbation Hypertension Diabetes of 2 Bipolar Schizophrenia Chronic pain Plan Admit to medicine Start nebulizer treatment, start BIPAP check fingersticks initiate insulin sliding scale Continue appropriate outpatient medications, start DVT prophylaxis
[2018-11-05] MEDS: DUONEB *Not for PRN Use IH SCH ×5 (06:34→20:50)
[2018-11-05] MEDS ORDERED: LEVAQUIN 500MG/100ML 500 MG/100 ML BAG IV SCH (10:00)
[2018-11-05] MEDS ORDERED: LOVENOX SUB-Q SCH (10:00)
[2018-11-05] MEDS ORDERED: ADRENALIN ONE (10:55)
[2018-11-05] MEDS ORDERED: ATROPINE ONE (10:55)
--- NOTE | 2018-11-05 11:13 | Event Note ---
Date: 11/05/18 Code Lev called. Patient per nursing staff, destaturated down to 50% despite being on ventimask and then became asytole., ACLS protocol started. CPR 1 dose of Epi was given, patient returned with mild agonal breathing, bradycardia, unable to maintain airway, confused requiring intubation 1 Dose of Atropine given per ACLS protocol With good response. BP was restored at 150 systolic Patient transferred to the ICU. Sqe notified. Calls placed to the number on file for patient appeared erroneous. Nursing will contact family once we have updated number
--- NOTE | 2018-11-05 11:15 | Event Note ---
Date: 11/05/18 Called to room for tyra case. Pt initially pulseless, agonal respirations. Pt was preoxygenated. Intubated with MAC 4 blade, 7.5 ET tube. Positive color change on CO2 detector. Bilateral breath sounds present. Condensation in the tube. Tube secured at 23cm at the lip. O2 sats 100%. CXR shows adequate tube positioning.
[2018-11-05] MEDS: DIPRIVAN 10 MG/ML 1,000 MG/100 ML BOTTLE IV SCH ×2 (11:30→22:34)
[2018-11-05] MEDS ORDERED: DIPRIVAN 10 MG/ML 1,000 MG/100 ML BOTTLE IV ONE (11:34)
[2018-11-05] MEDS ORDERED: ARTIFICIAL TEARS OPHTH OINT OU PRN (11:39)
[2018-11-05] MEDS ORDERED: VASELINE LIP THERAPY TP PRN (11:39)
[2018-11-05] MEDS ORDERED: SUBLIMAZE IV PRN (11:39)
[2018-11-05] MEDS: fentaNYL DRIP Premix 2,000 MCG/100 ML BAG IV SCH ×2 (12:00→22:32)
[2018-11-05] MEDS: HumaLOG SUB-Q SCH ×3 (12:10→22:33)
--- NOTE | 2018-11-05 12:19 | Consultation ---
History of Present Illness Consult date: 11/05/18 Requesting physician: ASUNCION MERCADO Reason for consult: other (Acute Hypercapnic Hypoxemic Respiratory Failure) History of present illness: PULMONARY/CCM CONSULT NOTE (Full note dictated) Please see dictated notes for full details Medications and Allergies Allergies Allergy/AdvReac Type Severity Reaction Status Date / Time Penicillins Allergy Angioedema Verified 09/14/18 13:55 prednisone Allergy Unknown Verified 09/14/18 13:55 bupropion HCl AdvReac Unknown Verified 09/14/18 13:55 [From Wellbutrin] divalproex sodium AdvReac Unknown Verified 09/14/18 13:55 [From Depakote] fluoxetine HCl [From Prozac] AdvReac Unknown Verified 09/14/18 13:55 lithium AdvReac Unknown Verified 09/14/18 13:55 Home Medications Medication Instructions Recorded Confirmed Last Taken Type Insulin Aspart Protam & Aspart 15 units SUB-Q TID 30 Days 07/30/18 09/14/18 Unknown Rx [NovoLOG Mix 70-30 Flexpen] insuln.pen Lisinopril 20 mg PO DAILY #30 tablet 07/30/18 09/14/18 Unknown Rx Loratadine [Claritin] 10 mg PO QDAY #10 tablet 07/30/18 09/14/18 Unknown Rx Escitalopram Oxalate [Lexapro] 20 mg PO QDAY 09/14/18 09/14/18 Unknown History LORazepam [Ativan] 1 mg PO Q12H 09/14/18 09/14/18 09/14/18 History Omeprazole 20 mg PO QDAY 09/14/18 09/14/18 Unknown History oxyCODONE /ACETAMINOPHEN [Percocet 1 tab PO Q8H PRN 09/14/18 09/14/18 Unknown History 5/325 mg] ALBUTEROL Inhaler(NF) [VENTOLIN 2 puff IH Q4H PRN #1 can 09/17/18 Unknown Rx Inhaler(NF)] ALBUTEROL NEB's [Proventil 0.083% 2.5 mg IH QID PRN #60 nebu 09/17/18 Unknown Rx NEBS] Budesonide/Formoterol Fumarate 1 puff IH BID #60 hfa.aer.ad 09/17/18 Unknown Rx [Symbicort 160-4.5 Mcg Inhaler] Prednisone [predniSONE 10 mg 10 mg PO .TAPER #1 tab.ds.pk 09/17/18 Unknown Rx (6-Day Pack, 21 Tabs)] guaiFENesin [Robitussin] 200 mg PO Q4H PRN #1 bottle 09/17/18 Unknown Rx levoFLOXacin [Levaquin TAB] 500 mg PO QDAY #7 tablet 09/17/18 Unknown Rx Active Meds: Active Medications Acetaminophen (Tylenol) 650 mg PO Q4H PRN PRN Reason: Pain MILD(1-3)/Fever >100.5/KHAN Albuterol/Ipratropium (Duoneb *Not For Prn Use*) 1 ampul IH Q6HRT [facility] Last Admin: 11/05/18 11:48 Dose: 1 ampul Documented by: Dextrose (D50w (25gm) Syringe) 50 ml IV PRN PRN PRN Reason: Hypoglycemia Enoxaparin Sodium (Lovenox) 40 mg SUB-Q QDAY@1000 VIC Fentanyl (Sublimaze) 50 mcg IV Q10MIN PRN PRN Reason: ANALGESIA Hydrophilic Ointment (Vaseline Lip Therapy) 1 applic TP Q2HR PRN PRN Reason: Dry Lips Levofloxacin/Dextrose (Levaquin 500mg/100ml) 500 mg in 100 mls @ 100 mls/hr IV Q24HR VIC; Protocol Propofol (Diprivan 10 Mg/Ml) 1,000 mg in 100 mls @ 3.864 mls/hr IV TITR VIC; Protocol Last Titration: 11/05/18 12:18 Dose: 15 mcg/kg/min, 11.592 mls/hr Documented by: Fentanyl Citrate (Fentanyl Drip Premix) 2,000 mcg in 100 mls @ 6.44 mls/hr IV TITR VIC; Protocol Last Admin: 11/05/18 12:00 Dose: 1 mcg/kg/hr, 6.44 mls/hr Documented by: Insulin Human Lispro (Humalog) 0 unit SUB-Q ACHS VIC; Protocol Last Admin: 11/05/18 12:10 Dose: Not Given Documented by: Methylprednisolone Sodium Succinate (Solu-Medrol) 60 mg IV Q8HR VIC Multi-Ingred Cream/Lotion/Oil/Oint (Artificial Tears Ophth Oint) 1 applic OU Q4HR PRN PRN Reason: Dry Eye(s) Ondansetron HCl (Zofran) 4 mg IV Q8H PRN PRN Reason: Nausea And Vomiting Sodium Chloride (Sodium Chloride Flush Syringe 10 Ml) 10 ml IV BID VIC Sodium Chloride (Sodium Chloride Flush Syringe 10 Ml) 10 ml IV PRN PRN PRN Reason: LINE FLUSH Physical Examination Vital signs: Vital Signs Temp Pulse Resp BP Pulse Ox 98.4 F 91 H 35 H 146/93 95 11/05/18 02:01 11/05/18 02:01 11/05/18 02:01 11/05/18 02:01 11/05/18 02:01 Results - Laboratory Findings CBC and BMP: 11/05/18 02:30 11/05/18 02:30 ABG POC ABG pH 7.137 (7.35-7.45) L 11/05/18 11:54 POC ABG HCO3 30.1 (22-26 mml/L) 11/05/18 11:54 POC ABG Total CO2 33 (23-27mmol/L) 11/05/18 11:54 POC ABG O2 Sat 100 11/05/18 11:54 Abnormal lab findings: Abnormal Labs 11/05/18 11/05/18 11/05/18 02:30 02:30 02:51 Hgb 14.5 H MCHC 36 H POC ABG pH 7.322 L POC ABG pCO2 55.5 H Carbon Dioxide 31 H BUN 6 L POC Glucose 11/05/18 11/05/18 11/05/18 10:05 11:02 11:54 Hgb MCHC POC ABG pH 7.137 L POC ABG pCO2 Carbon Dioxide BUN POC Glucose 171 H 165 H
[2018-11-05] MEDS: SODIUM CHLORIDE FLUSH SYRINGE 10 ML IV SCH ×2 (12:43→22:43)
--- NOTE | 2018-11-05 12:50 | XRay Report ---
PORTABLE CHEST INDICATION: ET tube placement. COMPARISON: 2:22 AM earlier today. FINDINGS: Portable, frontal chest radiograph, 11:34 AM, 11/05/2018 demonstrates interval intubation with ET tube tip partly obscured due to EKG leads and overlying the spine, though felt approximately 3.5 cm above the uzair. Stable, normal cardiomediastinal silhouette. Limited patient positioning with clear imaged lungs. Stable bones with right shoulder degenerative changes. CONCLUSION: Interval uncomplicated intubation with few other incidental findings, as above. Thank you for the opportunity to participate in this patient's care.
[2018-11-05] MEDS: LOVENOX SUB-Q SCH (13:05)
[2018-11-05] MEDS: SOLU-Medrol IV SCH ×3 (13:06→22:43)
[2018-11-05] MEDS: BROVANA NEBU IH SCH ×2 (14:01→20:50)
--- NOTE | 2018-11-05 16:15 | XRay Report ---
PROCEDURE: XR ABDOMEN 1V AP TECHNIQUE: Abdominal radiograph, single view. HISTORY: dobhoff insertion COMPARISONS: None . FINDINGS: Bowel gas pattern: Nonobstructive . Masses or calcifications: None . Bony structures: No significant abnormality . Other: The feeding tube tip projects within the stomach. . IMPRESSION: Feeding tube tip projecting the stomach. This document is electronically signed by Mica Newman., November 05 2018 04:13:44 PM ET
--- NOTE | 2018-11-05 17:18 | Consultation ---
PULMONARY CRITICAL CARE CONSULTATION CONSULTING PHYSICIAN: Dr. Bautista. REASON FOR CONSULTATION: Acute hypercapnic hypoxemic respiratory failure, on mechanical ventilatory support. CHIEF COMPLAINT AND HISTORY OF PRESENT ILLNESS: As follows: The patient is a 53-year-old female with past medical history significant amongst other things for a diagnosis of chronic obstructive lung disease that is reported as home oxygen dependent, came into the Emergency Room complaining of increasing shortness of breath, not responsive to her breathing treatments, complained of some chest pressure and tightness, of cough productive of clear sputum. She had denied any nausea, vomiting, fevers, chills at presentation, evaluated in the Emergency Room initially, I believe admitted to the telemetry floor after she stabilized a little bit with the continuous nebs and IV steroids. Earlier today, a code blue was called. The patient had desaturated down to the 50s, became asystolic. ACLS protocol was started. She received epinephrine. She received atropine. There was a return of spontaneous circulation. She was intubated and brought down to the Intensive Care Unit where I stopped by to see her. When I stopped by to see her, she was on mechanical ventilator; very, very tight wheezing on auscultation. I do not have any history of actual trauma. As far as the records say, the patient is a current everyday smoker. That really is as much of the history of presentation as I have. PAST MEDICAL HISTORY: History of hypertension, history of congestive heart failure, history of diabetes. She is morbidly obese, history of chronic obstructive pulmonary disease, home oxygen dependent, arthritis, bipolar disorder, schizoaffective disorder. PAST SURGICAL HISTORY: She has had spinal fusion surgery in the past, left hip surgery and hysterectomy. MEDICATIONS: Medications that she was on at the time I stopped by to see her were reviewed. Pertinent medications included the following: She was on Tylenol 650 mg p.o. q.4 hours p.r.n. mild pain or fevers. All p.o. meds via the feeding tube. She is on DuoNeb nebulizer treatments nebulized q.6 hours, Lovenox 40 mg subcutaneous daily. Insulin via sliding scale, Levaquin 500 mg IV daily had been ordered, Solu-Medrol 60 mg IV q.8 hours, Zofran 4 mg IV q.8 hours p.r.n. nausea and vomiting. ALLERGIES: To PENICILLINS, to PREDNISONE, to BUSPAR, to DEPAKOTE. Nature of these allergies is unknown. DIET: Morbidly obese, acute weight loss or gain history is unknown. FAMILY AND SOCIAL HISTORY: Apparently lives in the community. She has at least about a 10+ pack year tobacco smoking history, continues to smoke. Alcohol or illicit drug use or abuse history is unknown. Family history otherwise unknown and unobtainable. REVIEW OF SYSTEMS: Unobtainable secondary to the patient's medical and mental condition. Since she has been here, no gross hematochezia or melena, no gross hematuria, no hematemesis, no bloody tracheal secretions, no witnessed seizures. Review of systems is otherwise as in the body of the history above or unobtainable. PHYSICAL EXAMINATION: VITAL SIGNS: On examination at presentation in the Emergency Room, she was afebrile, temperature 98.4 degrees Fahrenheit, pulse was 91, respiratory rate was 35, blood pressure 146/93, oxygen sats were 95%, inspired oxygen concentration was not recorded. When I saw her, she was on the assist control mode of ventilation, tidal volume 500, rate of 18, PEEP of 6 on 100% FiO2 with 99% O2 sats. GENERAL: A middle-aged, morbidly obese female, normocephalic, atraumatic, on the mechanical ventilator with significantly increased respiratory distress at rest. HEAD, EYES, EARS, NOSE AND THROAT: She is anicteric. No conjunctival erythema. Oropharynx is moist. Endotracheal tube is at the lips, taped around 23 cm. Grossly, no palpable lymph nodes in the supraclavicular or submandibular lymph node chains. NECK: No gross jugular venous distention. She does have a large neck circumference. Grossly, no palpable lymph nodes as mentioned above. LUNGS: Auscultation of both lung kramer reveals tight expiratory wheezes, no rhonchi, no rales. HEART: Heart sounds 1 and 2 are heard. Regular tachycardia at the time of my evaluation without overt rubs or murmurs. ABDOMEN: Soft, full, bowel sounds are positive, nontender. No palpable hepatosplenomegaly. EXTREMITIES: Without overt digital clubbing or cyanosis and no pedal edema. Pedal pulses are palpable bilaterally and strong. NEUROLOGIC: Pupils are equal, round, about 3 mm, reactive to light. Extraocular muscle movements could not be assessed. She has spontaneous movements to all 4 extremities. SKIN: Normal turgor without overt cellulitis or rash. LABORATORY DATA: From my review is as follows: White cell count 8900, hemoglobin 14.5, hematocrit 40.5, platelet count 263. No manual differential. Arterial blood gas at presentation showed a pH of 7.32, pCO2 of 56, pO2 of 87 and that was on 4 liters nasal cannula. Most recent ABG shows a pH of 7.14, pCO2 is pending. Serum sodium 140, potassium 3.9, chloride 99, bicarbonate 31, BUN 6, creatinine 0.7, and a glucose of 94. No microbiology studies. Chest x-ray was done. Presentation chest x-rays consistent with COPD, hyperinflation, blunting of both costophrenic angles, likely due to the breast shadows. No gross cardiomegaly, no gross bony fracture. Post-intubation chest x-ray: ET tube is in good position below the lower level of the clavicular heads and again no new focal infiltrate, no gross rib fracture that I can see. ASSESSMENT: 1. [id number] hypoxemic hypercapnic respiratory failure. 2. Acute chronic obstructive pulmonary disease exacerbation. 3. Morbid obesity. 4. Acute encephalopathy, toxic metabolic. 5. History of congestive heart failure. 6. Hypertension. 7. Diabetes. 8. Arthritis. 9. Bipolar disorder. 10. Schizoaffective disorder. PLAN: I will go ahead and send a stat D-dimer level and algorithm to make decisions on possibility of venous thromboembolic disorders. I have a rather low pretest probability at this point. We will get that and plus or minus Dopplers. I have adjusted the ventilator to increase minute ventilations. We have reduced the tidal volume to 400, but increased the rate to 30. I will repeat a blood gas in about an hour. Peak inspiratory pressures are elevated but again mostly upper airway and large airways, I doubt, the plateaus will be significantly elevated. I will be measuring the plateau pressures and little bit if I am not able to get better PEEPs once the patient is sedated. She has been started on propofol and fentanyl that will be titrated to keep RASS scale of 0 to -1. She has been started empirically on Levaquin monotherapy. Tracheal aspirate has been sent. Anti-infectives will be deescalated based on results of clinical and microbiologic data. A lactic acid level has been ordered. We will continue systemic steroids. She will be continued on DVT prophylaxis and started on GI prophylaxis, especially with her being on positive pressure ventilation therapy at this time. Flu and pneumonia vaccination will be addressed per protocol. Hopefully, she does well and we can get her to a point of extubation over the next day or two. This may well be related to some type of viral syndrome or infection, but again, we will go with empiric community-acquired pneumonia therapy. Thank you very much for the consult Dr. Bautista. We will follow along. We will make further recommendations as picture progresses/becomes clearer. She is critically ill, on life-sustaining interventions including mechanical ventilatory support, at high risk for further deterioration including the risk of . At this time, I have spent about 35-40 minutes of critical care time without overlap and excluding any procedural time that may be necessary. JOB# [id number] SOFI/CHRISSY
[2018-11-05] MEDS ORDERED: SODIUM BICARBONATE FEEDTUBE PRN (17:25)
[2018-11-05] MEDS ORDERED: PANCREAZE DR 10,500 UNIT FEEDTUBE PRN (17:25)
[2018-11-05] MEDS ORDERED: SIMPLE SYRUP FEEDTUBE PRN ×2 (17:25)
[2018-11-05] MEDS: PULMICORT IH SCH (20:50)
[2018-11-06] MEDS: DUONEB *Not for PRN Use IH SCH ×5 (02:36→20:43)
[2018-11-06] MEDS: DIPRIVAN 10 MG/ML 1,000 MG/100 ML BOTTLE IV SCH ×2 (02:57→08:54)
--- NOTE | 2018-11-06 03:22 | XRay Report ---
PROCEDURE: XR CHEST 1V AP TECHNIQUE: Chest radiograph single view. HISTORY: follow up respiratory failure COMPARISONS: November 05, 2018 . FINDINGS: Heart: Normal. Mediastinum/Vessels: Normal. Lungs/Pleural space: Lungs are expanded. There are no infiltrates, effusions or pneumothoraces.. Bony thorax: No acute osseous abnormality. Life support devices: The endotracheal tube is in the mid trachea. The NG tube is in the stomach.. IMPRESSION: The heart size is normal.. Lungs are expanded. There are no infiltrates, effusions or pneumothoraces.. The endotracheal tube is in the mid trachea. The NG tube is in the stomach.. This document is electronically signed by Lopez Zarate MD., November 06 2018 03:20:36 AM ET
[2018-11-06 05:13] LABS: Hematocrit 42.1 % (30.3-42.9); Hemoglobin 13.9 gm/dl (10.1-14.3); Mean Corpuscular HGB Conc 33 % (30-34); Mean Corpuscular Volume 88 fl (79-97); Platelet Count 248 K/mm3 (140-440); Red Blood Count 4.77 M/mm3 (3.65-5.03); Red Cell Distribution Width 14.8 % (13.2-15.2)
[2018-11-06 05:31] LABS: Calcium 9.9 mg/dL (8.4-10.2)
--- NOTE | 2018-11-06 06:06 | Progress Note ---
Assessment and Plan Critical care time 40 minutes - Patient Problems (1) Acute hypoxemic respiratory failure Current Visit: No Status: Acute Plan to address problem: Patient intubated COnt vent support transfer worker consult requested IV solumedrol IV abx and Duonebs to cont (2) COPD exacerbation Current Visit: Yes Status: Acute Plan to address problem: Cont Duonebs IV solumedrol and IV Abx (3) HTN (hypertension) Current Visit: No Status: Chronic Qualifiers: Hypertension type: essential hypertension Qualified Code(s): I10 - Es sential (primary) hypertension Plan to address problem: Cont antihypertensives (4) T2DM (type 2 diabetes mellitus) Current Visit: Yes Status: Chronic Qualifiers: Diabetes mellitus senior care insulin use: unspecified [place] foreman insulin use status Plan to address problem: COnt coverage (5) Bipolar 1 disorder Current Visit: Yes Status: Chronic Plan to address problem: COnt antipsychotics (6) Schizophrenia Current Visit: Yes Status: Chronic Qualifiers: Schizophrenia type: unspecified Qualified Code(s): F20.9 - Schizophrenia, unspecified (7) Chronic pain Current Visit: Yes Status: Chronic Qualifiers: Chronic pain type: chronic pain syndrome Qualified Code(s): G89.4 - Chronic pain syndrome Plan to address problem: Cont analgesics (8) DVT prophylaxis Current Visit: No Status: Acute (9) DVT prophylaxis Current Visit: No Status: Acute Plan to address problem: On Lovenox and GI prophylaxis Subjective Date of service: 11/05/18 Principal diagnosis: Acute resp failure and Copd exacerbation Interval history: 1100 am Patient admitted for Acute resp failure and COpd exacerbation Code Blue called. Patient per nursing staff, destaturated down to 50% despite being on ventimask and then became asytole., ACLS protocol started. CPR 1 dose of Epi was given, patient returned with mild agonal breathing, bradycardi a, unable to maintain airway, confused requiring intubation 1 Dose of Atropine given per ACLS protocol With good response. BP was restored at 150 systolic Patient transferred to the ICU. Nailing Machine Operator notified. Calls placed to the number on file for patient appeared erroneous. Nursing will contact family once we have updated number Objective - Constitutional Vitals: Vital Signs - 12hr 11/05/18 11/05/18 11/05/18 18:15 18:30 18:45 Temperature Pulse Rate 86 81 81 Pulse Rate [ Anterior Bilateral Throughout] Respiratory 30 H 30 H 30 H Rate Respiratory Rate [Anterior Bilateral Throughout] Respiratory Rate [Back] Blood Pressure 114/76 103/69 101/68 O2 Sat by Pulse 95 94 97 Oximetry 11/05/18 11/05/18 11/05/18 19:00 19:15 19:30 Temperature 98.3 F Pulse Rate 81 79 79 Pulse Rate [ Anterior Bilateral Throughout] Respiratory 30 H 30 H 30 H Rate Respiratory Rate [Anterior Bilateral Throughout] Respiratory 18 Rate [Back] Blood Pressure 100/66 102/67 97/63 O2 Sat by Pulse 97 94 92 Oximetry 11/05/18 11/05/18 11/05/18 19:45 20:00 20:15 Temperature 98.4 F Pulse Rate 79 78 77 Pulse Rate [ Anterior Bilateral Throughout] Respiratory 30 H 30 H 30 H Rate Respiratory Rate [Anterior Bilateral Throughout] Respiratory Rate [Back] Blood Pressure 98/65 97/63 100/68 O2 Sat by Pulse 93 96 Oximetry 11/05/18 11/05/18 11/05/18 20:30 20:45 20:51 Temperature Pulse Rate 80 77 76 Pulse Rate [ Anterior Bilateral Throughout] Respiratory 30 H 30 H Rate Respiratory Rate [Anterior Bilateral Throughout] Respiratory Rate [Back] Blood Pressure 105/78 103/56 103/56 O2 Sat by Pulse 95 93 95 Oximetry 11/05/18 11/05/18 11/05/18 20:55 21:00 21:15 Temperature Pulse Rate 77 77 Pulse Rate [ 76 Anterior Bilateral Throughout] Respiratory 30 H 30 H Rate Respiratory 30 H Rate [Anterior Bilateral Throughout] Respiratory Rate [Back] Blood Pressure 103/68 98/64 O2 Sat by Pulse 95 99 Oximetry 11/05/18 11/05/18 11/05/18 21:23 21:30 21:45 Temperature Pulse Rate 76 77 Pulse Rate [ 77 Anterior Bilateral Throughout] Respiratory 30 H 30 H Rate Respiratory 30 H Rate [Anterior Bilateral Throughout] Respiratory Rate [Back] Blood Pressure 99/66 98/62 O2 Sat by Pulse 99 92 Oximetry 11/05/18 11/05/18 11/05/18 21:50 22:00 22:15 Temperature Pulse Rate 73 77 76 Pulse Rate [ Anterior Bilateral Throughout] Respiratory 30 H 30 H 30 H Rate Respiratory Rate [Anterior Bilateral Throughout] Respiratory Rate [Back] Blood Pressure 99/66 100/62 O2 Sat by Pulse 89 92 94 Oximetry 11/05/18 11/05/18 11/05/18 22:17 22:30 22:45 Temperature Pulse Rate 76 75 75 Pulse Rate [ Anterior Bilateral Throughout] Respiratory 30 H 30 H 30 H Rate Respiratory Rate [Anterior Bilateral Throughout] Respiratory Rate [Back] Blood Pressure 100/62 108/72 103/69 O2 Sat by Pulse 92 87 90 Oximetry 11/05/18 11/05/18 11/05/18 23:00 23:15 23:30 Temperature Pulse Rate 75 76 75 Pulse Rate [ Anterior Bilateral Throughout] Respiratory 30 H 30 H 30 H Rate Respiratory Rate [Anterior Bilateral Throughout] Respiratory Rate [Back] Blood Pressure 101/65 101/63 102/62 O2 Sat by Pulse 89 89 87 Oximetry 11/05/18 11/05/18 11/06/18 23:45 23:50 00:00 Temperature 98.6 F Pulse Rate 75 73 75 Pulse Rate [ Anterior Bilateral Throughout] Respiratory 30 H 30 H 30 H Rate Respiratory Rate [Anterior Bilateral Throughout] Respiratory Rate [Back] Blood Pressure 103/63 107/64 O2 Sat by Pulse 90 88 91 Oximetry 11/06/18 11/06/18 11/06/18 00:05 00:15 00:30 Temperature Pulse Rate 75 74 74 Pulse Rate [ Anterior Bilateral Throughout] Respiratory 30 H 30 H Rate Respiratory Rate [Anterior Bilateral Throughout] Respiratory Rate [Back] Blood Pressure 107/64 102/67 103/63 O2 Sat by Pulse 88 92 93 Oximetry 11/06/18 11/06/18 11/06/18 00:45 01:01 01:05 Temperature Pulse Rate 74 73 73 Pulse Rate [ Anterior Bilateral Throughout] Respiratory 30 H 30 H 30 H Rate Respiratory Rate [Anterior Bilateral Throughout] Respiratory Rate [Back] Blood Pressure 108/62 112/49 O2 Sat by Pulse 89 90 91 Oximetry 11/06/18 11/06/18 11/06/18 01:15 01:30 01:45 Temperature Pulse Rate 71 73 72 Pulse Rate [ Anterior Bilateral Throughout] Respiratory 30 H 30 H 30 H Rate Respiratory Rate [Anterior Bilateral Throughout] Respiratory Rate [Back] Blood Pressure 105/61 103/62 105/60 O2 Sat by Pulse 90 90 92 Oximetry 11/06/18 11/06/18 11/06/18 02:00 02:15 02:30 Temperature Pulse Rate 71 71 72 Pulse Rate [ Anterior Bilateral Throughout] Respiratory 30 H 30 H 30 H Rate Respiratory Rate [Anterior Bilateral Throughout] Respiratory Rate [Back] Blood Pressure 107/64 103/63 104/65 O2 Sat by Pulse 91 93 91 Oximetry 11/06/18 11/06/18 11/06/18 02:35 02:45 03:00 Temperature Pulse Rate 73 71 Pulse Rate [ 73 Anterior Bilateral Throughout] Respiratory 31 H 23 Rate Respiratory 30 H Rate [Anterior Bilateral Throughout] Respiratory Rate [Back] Blood Pressure 118/61 111/71 O2 Sat by Pulse 91 87 Oximetry 11/06/18 11/06/18 11/06/18 03:01 03:05 03:14 Temperature Pulse Rate 72 Pulse Rate [ 72 Anterior Bilateral Throughout] Respiratory 30 H Rate Respiratory 30 H Rate [Anterior Bilateral Throughout] Respiratory Rate [Back] Blood Pressure 111/71 O2 Sat by Pulse 92 91 Oximetry 11/06/18 11/06/18 11/06/18 03:15 03:30 03:45 Temperature Pulse Rate 74 74 73 Pulse Rate [ Anterior Bilateral Throughout] Respiratory 30 H 30 H 30 H Rate Respiratory Rate [Anterior Bilateral Throughout] Respiratory Rate [Back] Blood Pressure 115/68 112/68 107/69 O2 Sat by Pulse 91 94 91 Oximetry 11/06/18 11/06/18 11/06/18 04:00 04:15 04:30 Temperature Pulse Rate 74 71 70 Pulse Rate [ Anterior Bilateral Throughout] Respiratory 30 H 30 H 30 H Rate Respiratory Rate [Anterior Bilateral Throughout] Respiratory Rate [Back] Blood Pressure 108/68 122/93 113/64 O2 Sat by Pulse 94 93 94 Oximetry 11/06/18 11/06/18 11/06/18 04:45 05:00 05:07 Temperature Pulse Rate 73 71 71 Pulse Rate [ Anterior Bilateral Throughout] Respiratory 30 H 30 H 30 H Rate Respiratory Rate [Anterior Bilateral Throughout] Respiratory Rate [Back] Blood Pressure 111/61 112/60 O2 Sat by Pulse 93 92 93 Oximetry General appearance: Present: severe distress, well-nourished - EENT Eyes: PERRL, EOM intact ENT: hearing intact, clear oral mucosa Ears: bilateral: normal - Neck Neck: supple, normal ROM - Respiratory Respiratory effort: normal Respiratory: bilateral: diminished, rhonchi, wheezing - Breasts Breasts: normal - Cardiovascular Heart rate: 96 Rhythm: regular Heart Sounds: Present: S1 & S2. Absent: gallop, rub Extremities: pulses intact, No edema, normal color, Full ROM - Gastrointestinal General gastrointestinal: Present: soft, non-tender, non-distended, normal bowel sounds - Genitourinary Female genitourinary: normal - Integumentary Integumentary: clear, warm, dry - Musculoskeletal Musculoskeletal: strength equal bilaterally, generalized weakness - Neurologic Neurologic: moves all extremities - Psychiatric Psychiatric: memory intact, appropriate mood/affect, intact judgment & insight - Allied health notes Allied health notes reviewed: nursing, case management - Labs CBC & Chem 7: 11/06/18 04:07 11/06/18 04:07 Labs: Abnormal lab results 11/05/18 11/05/18 11/05/18 Range/Units 10:05 11:02 11:54 WBC (4.5-11.0) K/mm3 D-Dimer (0-234) ng/mlDDU POC ABG pH 7.137 L (7.35-7.45) POC ABG pO2 (80-105) Glucose (65-100) mg/dL POC Glucose 171 H 165 H (70-105) 11/05/18 11/05/18 11/05/18 Range/Units 12:29 14:24 14:38 WBC (4.5-11.0) K/mm3 D-Dimer 1905.84 H (0-234) ng/mlDDU POC ABG pH (7.35-7.45) POC ABG pO2 75 L (80-105) Glucose (65-100) mg/dL POC Glucose 212 H (70-105) 11/05/18 11/06/18 11/06/18 Range/Units 21:15 04:07 04:07 WBC 12.4 H (4.5-11.0) K/mm3 D-Dimer (0-234) ng/mlDDU POC ABG pH (7.35-7.45) POC ABG pO2 (80-105) Glucose 190 H (65-100) mg/dL POC Glucose 212 H (70-105) 11/06/18 Range/Units 04:21 WBC (4.5-11.0) K/mm3 D-Dimer (0-234) ng/mlDDU POC ABG pH (7.35-7.45) POC ABG pO2 66 L (80-105) Glucose (65-100) mg/dL POC Glucose (70-105)
[2018-11-06] MEDS: SOLU-Medrol IV SCH ×3 (06:11→21:26)
[2018-11-06] MEDS ORDERED: SOLU-Medrol IV SCH (06:17)
[2018-11-06 07:07] LABS: Band Neutrophils # (Manual) 0.6 K/mm3; Basophils % (Manual) 0 % (0.0-1.8); Eosinophils % (Manual) 0 % (0.0-4.3); Total Cells Counted 100
[2018-11-06 07:08] LABS: Anisocytosis 1+; Platelet Estimate Consistent w Auto
--- NOTE | 2018-11-06 07:43 | Progress Note ---
Assessment and Plan s/p Cardiopulmonary arrest Acute on chronic hypoxemic respiratory failure on MVS AE-COPD Hypertension Type 2 Diabetes mellitus Bipolar disorder Schizophrenia Chronic pain Subjective Date of service: 11/06/18 Principal diagnosis: Acute resp failure and Copd exacerbation Interval history: Patient is seen today for: Seen and examined at bedside; 24hour events reviewed; nursing and respiratory care staff consulted; no adverse overnight events reported to me; Objective Vital Signs - 12hr 11/05/18 11/05/18 11/05/18 19:45 20:00 20:15 Temperature 98.4 F Pulse Rate 79 78 77 Pulse Rate [ Anterior Bilateral Throughout] Respiratory 30 H 30 H 30 H Rate Respiratory Rate [Anterior Bilateral Throughout] Blood Pressure 98/65 97/63 100/68 O2 Sat by Pulse 93 96 Oximetry 11/05/18 11/05/18 11/05/18 20:30 20:45 20:51 Temperature Pulse Rate 80 77 76 Pulse Rate [ Anterior Bilateral Throughout] Respiratory 30 H 30 H Rate Respiratory Rate [Anterior Bilateral Throughout] Blood Pressure 105/78 103/56 103/56 O2 Sat by Pulse 95 93 95 Oximetry 11/05/18 11/05/18 11/05/18 20:55 21:00 21:15 Temperature Pulse Rate 77 77 Pulse Rate [ 76 Anterior Bilateral Throughout] Respiratory 30 H 30 H Rate Respiratory 30 H Rate [Anterior Bilateral Throughout] Blood Pressure 103/68 98/64 O2 Sat by Pulse 95 99 Oximetry 11/05/18 11/05/18 11/05/18 21:23 21:30 21:45 Temperature Pulse Rate 76 77 Pulse Rate [ 77 Anterior Bilateral Throughout] Respiratory 30 H 30 H Rate Respiratory 30 H Rate [Anterior Bilateral Throughout] Blood Pressure 99/66 98/62 O2 Sat by Pulse 99 92 Oximetry 11/05/18 11/05/18 11/05/18 21:50 22:00 22:15 Temperature Pulse Rate 73 77 76 Pulse Rate [ Anterior Bilateral Throughout] Respiratory 30 H 30 H 30 H Rate Respiratory Rate [Anterior Bilateral Throughout] Blood Pressure 99/66 100/62 O2 Sat by Pulse 89 92 94 Oximetry 11/05/18 11/05/18 11/05/18 22:17 22:30 22:45 Temperature Pulse Rate 76 75 75 Pulse Rate [ Anterior Bilateral Throughout] Respiratory 30 H 30 H 30 H Rate Respiratory Rate [Anterior Bilateral Throughout] Blood Pressure 100/62 108/72 103/69 O2 Sat by Pulse 92 87 90 Oximetry 11/05/18 11/05/18 11/05/18 23:00 23:15 23:30 Temperature Pulse Rate 75 76 75 Pulse Rate [ Anterior Bilateral Throughout] Respiratory 30 H 30 H 30 H Rate Respiratory Rate [Anterior Bilateral Throughout] Blood Pressure 101/65 101/63 102/62 O2 Sat by Pulse 89 89 87 Oximetry 11/05/18 11/05/18 11/06/18 23:45 23:50 00:00 Temperature 98.6 F Pulse Rate 75 73 75 Pulse Rate [ Anterior Bilateral Throughout] Respiratory 30 H 30 H 30 H Rate Respiratory Rate [Anterior Bilateral Throughout] Blood Pressure 103/63 107/64 O2 Sat by Pulse 90 88 91 Oximetry 11/06/18 11/06/18 11/06/18 00:05 00:15 00:30 Temperature Pulse Rate 75 74 74 Pulse Rate [ Anterior Bilateral Throughout] Respiratory 30 H 30 H Rate Respiratory Rate [Anterior Bilateral Throughout] Blood Pressure 107/64 102/67 103/63 O2 Sat by Pulse 88 92 93 Oximetry 11/06/18 11/06/18 11/06/18 00:45 01:01 01:05 Temperature Pulse Rate 74 73 73 Pulse Rate [ Anterior Bilateral Throughout] Respiratory 30 H 30 H 30 H Rate Respiratory Rate [Anterior Bilateral Throughout] Blood Pressure 108/62 112/49 O2 Sat by Pulse 89 90 91 Oximetry 11/06/18 11/06/18 11/06/18 01:15 01:30 01:45 Temperature Pulse Rate 71 73 72 Pulse Rate [ Anterior Bilateral Throughout] Respiratory 30 H 30 H 30 H Rate Respiratory Rate [Anterior Bilateral Throughout] Blood Pressure 105/61 103/62 105/60 O2 Sat by Pulse 90 90 92 Oximetry 11/06/18 11/06/18 11/06/18 02:00 02:15 02:30 Temperature Pulse Rate 71 71 72 Pulse Rate [ Anterior Bilateral Throughout] Respiratory 30 H 30 H 30 H Rate Respiratory Rate [Anterior Bilateral Throughout] Blood Pressure 107/64 103/63 104/65 O2 Sat by Pulse 91 93 91 Oximetry 11/06/18 11/06/18 11/06/18 02:35 02:45 02:57 Temperature Pulse Rate 73 Pulse Rate [ 73 Anterior Bilateral Throughout] Respiratory 31 H 30 H Rate Respiratory 30 H Rate [Anterior Bilateral Throughout] Blood Pressure 118/61 O2 Sat by Pulse 91 Oximetry 11/06/18 11/06/18 11/06/18 03:00 03:01 03:05 Temperature Pulse Rate 71 72 Pulse Rate [ 72 Anterior Bilateral Throughout] Respiratory 23 Rate Respiratory 30 H Rate [Anterior Bilateral Throughout] Blood Pressure 111/71 111/71 O2 Sat by Pulse 87 92 Oximetry 11/06/18 11/06/18 11/06/18 03:14 03:15 03:30 Temperature Pulse Rate 74 74 Pulse Rate [ Anterior Bilateral Throughout] Respiratory 30 H 30 H 30 H Rate Respiratory Rate [Anterior Bilateral Throughout] Blood Pressure 115/68 112/68 O2 Sat by Pulse 91 91 94 Oximetry 11/06/18 11/06/18 11/06/18 03:45 03:57 04:00 Temperature 98.9 F Pulse Rate 73 74 Pulse Rate [ Anterior Bilateral Throughout] Respiratory 30 H 30 H 30 H Rate Respiratory Rate [Anterior Bilateral Throughout] Blood Pressure 107/69 108/68 O2 Sat by Pulse 91 94 Oximetry 11/06/18 11/06/18 11/06/18 04:15 04:30 04:45 Temperature Pulse Rate 71 70 73 Pulse Rate [ Anterior Bilateral Throughout] Respiratory 30 H 30 H 30 H Rate Respiratory Rate [Anterior Bilateral Throughout] Blood Pressure 122/93 113/64 111/61 O2 Sat by Pulse 93 94 93 Oximetry 11/06/18 11/06/18 11/06/18 05:00 05:07 05:15 Temperature Pulse Rate 71 71 69 Pulse Rate [ Anterior Bilateral Throughout] Respiratory 30 H 30 H 30 H Rate Respiratory Rate [Anterior Bilateral Throughout] Blood Pressure 112/60 107/57 O2 Sat by Pulse 92 93 91 Oximetry 11/06/18 11/06/18 11/06/18 05:30 05:45 06:00 Temperature Pulse Rate 68 70 78 Pulse Rate [ Anterior Bilateral Throughout] Respiratory 30 H 29 H 27 H Rate Respiratory Rate [Anterior Bilateral Throughout] Blood Pressure 113/62 113/62 126/73 O2 Sat by Pulse 94 95 81 L Oximetry CBC and BMP: 11/06/18 04:07 11/06/18 04:07 ABG, PT/INR, D-dimer: ABG POC ABG pH 7.408 (7.35-7.45) 11/06/18 04:21 POC ABG pCO2 40.7 (35-45) 11/06/18 04:21 POC ABG pO2 66 (80-105) L 11/06/18 04:21 POC ABG HCO3 25.6 (22-26 mml/L) 11/06/18 04:21 POC ABG Total CO2 27 (23-27mmol/L) 11/06/18 04:21 POC ABG O2 Sat 93 11/06/18 04:21 PT/INR, D-dimer 1905.84 ng/mlDDU (0-234) H 11/05/18 14:38 Abnormal lab findings: Abnormal Labs 11/05/18 11/05/18 11/05/18 02:30 02:30 02:51 WBC Hgb 14.5 H MCHC 36 H Seg Neuts % (Manual) Lymphocytes % (Manual) Seg Neutrophils # Man D-Dimer POC ABG pH 7.322 L POC ABG pCO2 55.5 H POC ABG pO2 Carbon Dioxide 31 H BUN 6 L Glucose POC Glucose 11/05/18 11/05/18 11/05/18 10:05 11:02 11:54 WBC Hgb MCHC Seg Neuts % (Manual) Lymphocytes % (Manual) Seg Neutrophils # Man D-Dimer POC ABG pH 7.137 L POC ABG pCO2 POC ABG pO2 Carbon Dioxide BUN Glucose POC Glucose 171 H 165 H 11/05/18 11/05/18 11/05/18 12:29 14:24 14:38 WBC Hgb MCHC Seg Neuts % (Manual) Lymphocytes % (Manual) Seg Neutrophils # Man D-Dimer 1905.84 H POC ABG pH POC ABG pCO2 POC ABG pO2 75 L Carbon Dioxide BUN Glucose POC Glucose 212 H 11/05/18 11/06/18 11/06/18 21:15 04:07 04:07 WBC 12.4 H Hgb MCHC Seg Neuts % (Manual) 84.0 H Lymphocytes % (Manual) 10.0 L Seg Neutrophils # Man 10.4 H D-Dimer POC ABG pH POC ABG pCO2 POC ABG pO2 Carbon Dioxide BUN Glucose 190 H POC Glucose 212 H 11/06/18 04:21 WBC Hgb MCHC Seg Neuts % (Manual) Lymphocytes % (Manual) Seg Neutrophils # Man D-Dimer POC ABG pH POC ABG pCO2 POC ABG pO2 66 L Carbon Dioxide BUN Glucose POC Glucose
[2018-11-06] MEDS: BROVANA NEBU IH SCH ×2 (08:39→20:43)
[2018-11-06] MEDS: PULMICORT IH SCH ×2 (08:39→20:43)
[2018-11-06] MEDS: MAXIPIME/NS 2 GM/100 ML 2 GM/100 ML BAG IV SCH ×3 (09:06→21:27)
[2018-11-06] MEDS: HumaLOG SUB-Q SCH ×3 (09:21→17:20)
[2018-11-06 09:46] LABS: Calcium 10.2 mg/dL (8.4-10.2)
--- NOTE | 2018-11-06 12:25 | Progress Note ---
Assessment and Plan Assessment and plan: 53-year-old woman with a history of hypertension, diabetes, COPD, CHF, bipolar, schizophrenia, chronic pain comes emergency room with complaints of shortness of breath started today. Also complaining of cough productive of yellow phlegm. 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 requested IV solumedrol, abx and Duonebs to cont (2) COPD exacerbation Current Visit: Yes Status: Acute Plan to address problem: Cont Duonebs IV solumedrol and IV Abx (3) HTN (hypertension) Current Visit: No Status: Chronic Qualifiers: Hypertension type: essential hypertension Qualified Code(s): I10 - Essential (primary) hypertension Plan to address problem: Cont antihypertensives (4) T2DM (type 2 diabetes mellitus) Current Visit: Yes Status: Chronic Qualifiers: 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 operator truck 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 insulin use status Plan to address problem: COnt coverage (5) Bipolar 1 disorder Current Visit: Yes Status: Chronic Plan to address problem: COnt antipsychotics (6) Schizophrenia Current Visit: Yes Status: Chronic Qualifiers: Schizophrenia type: unspecified Qualified Code(s): F20.9 - Schizophrenia, unspecified (7) Chronic pain Current Visit: Yes Status: Chronic Qualifiers: Chronic pain type: chronic pain syndrome Qualified Code(s): G89.4 - Chronic pain syndrome Plan to address problem: Cont analgesics (8) Morbid Obesity weightloss advised (9) DVT prophylaxis Current Visit: No Status: Acute Plan to address problem: On Lovenox and GI prophylaxis History Interval history: Patient seen and examined, recently extubated and doing well, no new complaints. still hoarse speech but improving Hospitalist Physical - Physical exam Narrative exam: VITAL SIGNS: Reviewed. GENERAL: The patient appeared well nourished and normally developed. morbidly obese, Vital signs as documented. HEAD: No signs of head trauma. EYES: Pupils are equal. Extraocular motions intact. EARS: Hearing grossly intact. MOUTH: Oropharynx is normal. NECK: No adenopathy, no JVD. CHEST: Chest with diminshed breath sounds bilaterally. still with mild exp iratory wheezes, No rales, or rhonchi. CARDIAC: Regular rate and rhythm. S1 and S2, without murmurs, gallops, or rubs. VASCULAR: No Edema. Peripheral pulses normal and equal in all extremities. ABDOMEN: Soft, non tender and non distended. No rebound or guarding, and no masses palpated. Bowel Sounds normal. MUSCULOSKELETAL: Good range of motion of all major joints. Extremities without clubbing, cyanosis or edema. NEUROLOGIC EXAM: Alert and oriented x 3 No focal sensory or strength deficits. Speech normal. Follows commands. PSYCHIATRIC: Mood normal. SKIN: No rash or lesions. - Constitutional Vitals: Temp Pulse Resp BP Pulse Ox 98.0 F 91 H 17 153/78 94 11/06/18 08:00 11/06/18 08:49 11/06/18 08:49 11/06/18 08:30 11/06/18 08:30 General appearance: Present: severe distress, well-nourished Results - Labs CBC & Chem 7: 11/06/18 04:07 11/06/18 07:42 Labs: Laboratory Last Values WBC 12.4 K/mm3 (4.5-11.0) H 11/06/18 04:07 RBC 4.77 M/mm3 (3.65-5.03) 11/06/18 04:07 Hgb 13.9 gm/dl (10.1-14.3) 11/06/18 04:07 Hct 42.1 % (30.3-42.9) 11/06/18 04:07 MCV 88 fl (79-97) 11/06/18 04:07 MCH 29 pg (28-32) 11/06/18 04:07 MCHC 33 % (30-34) 11/06/18 04:07 RDW 14.8 % (13.2-15.2) 11/06/18 04:07 Plt Count 248 K/mm3 (140-440) 11/06/18 04:07 Lymph % (Auto) 25.3 % (13.4-35.0) 11/05/18 02:30 [place] % (Auto) 6.4 % (0.0-7.3) 11/05/18 02:30 Eos % (Auto) 3.9 % (0.0-4.3) 11/05/18 02:30 Baso % (Auto) 0.6 % (0.0-1.8) 11/05/18 02:30 Lymph # 2.2 K/mm3 (1.2-5.4) 11/05/18 02:30 [place] # 0.6 K/mm3 (0.0-0.8) 11/05/18 02:30 Eos # 0.3 K/mm3 (0.0-0.4) 11/05/18 02:30 Baso # 0.1 K/mm3 (0.0-0.1) 11/05/18 02:30 Add Manual Diff Complete 11/06/18 04:07 Total Counted 100 11/06/18 04:07 Seg Neutrophils % Centrifugal Supervisor 11/06/18 04:07 Seg Neuts % (Manual) 84.0 % (40.0-70.0) H 11/06/18 04:07 5.0 % 11/06/18 04:07 10.0 % (13.4-35.0) L 11/06/18 04:07 Reactive Lymphs % (Man) 0 % 11/06/18 04:07 1.0 % (0.0-7.3) 11/06/18 04:07 0 % (0.0-4.3) 11/06/18 04:07 0 % (0.0-1.8) 11/06/18 04:07 0 % 11/06/18 04:07 0 % 11/06/18 04:07 0 % 11/06/18 04:07 0 % 11/06/18 04:07 Nucleated RBC % Not Reportable 11/06/18 04:07 Seg Neutrophils # 5.7 K/mm3 (1.8-7.7) 11/05/18 02:30 Seg Neutrophils # Man 10.4 K/mm3 (1.8-7.7) H 11/06/18 04:07 Band Neutrophils # 0.6 K/mm3 11/06/18 04:07 1.2 K/mm3 (1.2-5.4) 11/06/18 04:07 Abs React Lymphs (Man) 0.0 K/mm3 11/06/18 04:07 0.1 K/mm3 (0.0-0.8) 11/06/18 04:07 0.0 K/mm3 (0.0-0.4) 11/06/18 04:07 0.0 K/mm3 (0.0-0.1) 11/06/18 04:07 0.0 K/mm3 11/06/18 04:07 0.0 K/mm3 11/06/18 04:07 0.0 K/mm3 11/06/18 04:07 Blast Cells # 0.0 K/mm3 11/06/18 04:07 WBC Morphology Not Reportable 11/06/18 04:07 Hypersegmented Neuts Not Reportable 11/06/18 04:07 Hyposegmented Neuts Not Reportable 11/06/18 04:07 Hypogranular Neuts Not Reportable 11/06/18 04:07 Not Reportable 11/06/18 04:07 Not Reportable 11/06/18 04:07 Not Reportable 11/06/18 04:07 Not Reportable 11/06/18 04:07 Not Reportable 11/06/18 04:07 Not Reportable 11/06/18 04:07 Consistent w auto 11/06/18 04:07 Not Reportable 11/06/18 04:07 Plt Clumps, EDTA Not Reportable 11/06/18 04:07 Not Reportable 11/06/18 04:07 Not Reportable 11/06/18 04:07 Not Reportable 11/06/18 04:07 Plt Morphology Comment Not Reportable 11/06/18 04:07 RBC Morphology Not Reportable 11/06/18 04:07 Dimorphic RBCs Not Reportable 11/06/18 04:07 Not Reportable 11/06/18 04:07 Not Reportable 11/06/18 04:07 Not Reportable 11/06/18 04:07 1+ 11/06/18 04:07 Not Reportable 11/06/18 04:07 Not Reportable 11/06/18 04:07 Not Reportable 11/06/18 04:07 Not Reportable 11/06/18 04:07 Not Reportable 11/06/18 04:07 Not Reportable 11/06/18 04:07 Not Reportable 11/06/18 04:07 Not Reportable 11/06/18 04:07 Not Reportable 11/06/18 04:07 Not Reportable 11/06/18 04:07 Not Reportable 11/06/18 04:07 Not Reportable 11/06/18 04:07 Not Reportable 11/06/18 04:07 Not Reportable 11/06/18 04:07 Not Reportable 11/06/18 04:07 Acanthocytes (Spur) Not Reportable 11/06/18 04:07 Rouleaux Not Reportable 11/06/18 04:07 Not Reportable 11/06/18 04:07 Not Reportable 11/06/18 04:07 Not Reportable 11/06/18 04:07 Not Reportable 11/06/18 04:07 Hem Pathologist Commnt No 11/06/18 04:07 1905.84 ng/mlDDU (0-234) H 11/05/18 14:38 POC ABG pH 7.422 (7.35-7.45) 11/06/18 10:10 POC ABG pCO2 41.6 (35-45) 11/06/18 10:10 POC ABG pO2 86 (80-105) 11/06/18 10:10 POC ABG HCO3 27.1 (22-26 mml/L) 11/06/18 10:10 POC ABG Total CO2 28 (23-27mmol/L) 11/06/18 10:10 POC ABG O2 Sat 97 11/06/18 10:10 POC ABG Base Excess 3 ((-2) - (+3)mmol/L) 11/06/18 10:10 55 % 11/06/18 10:10 Sodium 140 mmol/L (137-145) 11/06/18 07:42 Potassium 4.5 mmol/L (3.6-5.0) 11/06/18 07:42 Chloride 99.5 mmol/L (98-107) 11/06/18 07:42 Carbon Dioxide 26 mmol/L (22-30) 11/06/18 07:42 19 mmol/L 11/06/18 07:42 BUN 16 mg/dL (7-17) 11/06/18 07:42 1.2 mg/dL (0.7-1.2) 11/06/18 07:42 Estimated GFR 47 ml/min 11/06/18 07:42 13 % 11/06/18 07:42 Glucose 198 mg/dL (65-100) H 11/06/18 07:42 POC Glucose 188 (70-105) H 11/06/18 11:47 Calcium 10.2 mg/dL (8.4-10.2) 11/06/18 07:42 Active Medications - Current Medications Current Medications: Generic Name Dose Route Start Last Admin Trade Name Freq PRN Reason Stop Dose Admin Acetaminophen 650 mg 11/05/18 04:15 Tylenol PO Q4H PRN Pain MILD(1-3)/Fever >100.5/KHAN Albuterol/Ipratropium 1 ampul 11/05/18 08:00 11/06/18 08:39 Duoneb *Not For Prn Use* IH 1 ampul Q6HRT VIC Administration Lipase/Protease/Amylase 1 each 11/05/18 17:25 Pancrelincoln Shaffer 10,500 Unit FEEDTUBE PRN PRN For Clogged Feeding Tube Arformoterol Tartrate 15 mcg 11/05/18 12:45 11/06/18 08:39 Brovana Nebu IH 15 mcg Q12HRT VIC Administration Budesonide 0.5 mg 11/05/18 20:00 11/06/18 08:39 Pulmicort IH 0.5 mg Q12HRT VIC Administration Dextrose 50 ml 11/05/18 04:15 D50w (25gm) Syringe IV PRN PRN Hypoglycemia Enoxaparin Sodium 40 mg 11/05/18 10:00 11/05/18 13:05 Lovenox SUB-Q 40 mg QDAY@1000 VIC Administration Escitalopram Oxalate 20 mg 11/06/18 10:00 Lexapro PO QDAY VIC Famotidine 20 mg 11/06/18 10:00 Pepcid PO QDAY VIC Fentanyl 50 mcg 11/05/18 11:39 Sublimaze IV Q10MIN PRN ANALGESIA Hydrophilic Ointment 1 applic 11/05/18 11:39 Vaseline Lip Therapy TP Q2HR PRN Dry Lips Propofol 1,000 mg in 100 mls @ 3.864 mls/hr 11/05/18 12:00 11/06/18 09:06 Diprivan 10 Mg/Ml IV 0 mcg/kg/min TITR VIC 0 mls/hr Titration Protocol 5 MCG/KG/MIN Fentanyl Citrate 2,000 mcg in 100 mls @ 6.44 mls/hr 11/05/18 12:00 11/05/18 22:32 Fentanyl Drip Premix IV 2 mcg/kg/hr TITR VIC 12.88 mls/hr Administration Protocol 1 MCG/KG/HR Cefepime HCl 2 gm in 100 mls @ 200 mls/hr 11/06/18 07:00 11/06/18 09:06 Maxipime/Ns 2 Gm/100 Ml IV 200 mls/hr Q8HR [facility] Administration Protocol Insulin Human Lispro 0 unit 11/06/18 07:00 11/06/18 09:21 Humalog SUB-Q 3 unit Q6HR [facility] Administration Protocol Lisinopril 20 mg 11/06/18 10:00 Zestril PO DAILY VIC Loratadine 10 mg 11/06/18 10:00 Claritin PO QDAY VIC Lorazepam 1 mg 11/06/18 10:00 Ativan PO Q12HR [facility] Methylprednisolone Sodium Succinate 80 mg 11/06/18 14:00 Solu-Medrol IV Q8HR [facility] Multi-Ingred Cream/Lotion/Oil/Oint 1 applic 11/05/18 11:39 Artificial Tears Ophth Oint OU Q4HR PRN Dry Eye(s) Ondansetron HCl 4 mg 11/05/18 04:15 Zofran IV Q8H PRN Nausea And Vomiting Simple Syrup 15 ml 11/05/18 17:25 Simple Syrup FEEDTUBE PRN PRN Hypoglycemia Simple Syrup 30 ml 11/05/18 17:25 Simple Syrup FEEDTUBE PRN PRN Hypoglycemia Sodium Bicarbonate 325 mg 11/05/18 17:25 Sodium Bicarbonate FEEDTUBE PRN PRN For Clogged Feeding Tube Sodium Chloride 10 ml 11/05/18 10:00 11/05/18 22:43 Sodium Chloride Flush Syringe 10 Ml IV 10 ml BID VIC Administration Sodium Chloride 10 ml 11/05/18 04:15 Sodium Chloride Flush Syringe 10 Ml IV PRN PRN LINE FLUSH Nutrition/Malnutrition Assess - Dietary Evaluation Nutrition/Malnutrition Findings: Nutrition Notes Start: 11/05/18 17:14 Freq: Status: Active Protocol: Document 11/05/18 17:14 RM (Rec: 11/05/18 17:25 RM [id number]) Nutrition Notes Need for Assessment generated from: MD Order Initial or Follow up Assessment Current Diagnosis COPD,Diabetes,Hypertension, Heart Failure Other Pertinent Diagnosis Schizophrenia, Bipolar Current Diet Cardiac/Consistent CHO Labs/Tests Reviewed Pertinent Medications Solu-medrol, Propofol Height 5 ft 3 in Weight 128.8 kg [place] Body Weight (kg) 52.27 BMI 50.3 Subjective/Other Information Consulted for TF recommendation. Pt on vent. Burn Absent Trauma Absent #1 Nutrition Diagnosis Inadequate oral intake Etiology on vent As Evidenced by Signs and Symptoms no diet ordered Is patient on ventilator? Yes Is Patient Ambulatory and/or Out of Bed No REE-([facility]-confined to bed) 2232.192 Kcal/Kg value to use for calculation 14 Approximate Energy Requirements Using 1803 kcal/Kg Calculation Used for Recommendations Kcal/kg Additional Notes Protein Needs: 131g (2.5 g/kg IBW) Fluid Needs: 1 ml/kcal Nutrition Intervention Nutrition Support: Vital 1.2 at 65 ml/hr. Water flush of 100 mls q 4 hrs . Kcal 1,872 Protein (gm) 117 Fluid (mL) 1,256 Goal #1 TF tolerance Goal #2 Meet at least 80% of calorie and protein needs via TF Anticipated Discharge Needs: Unable to determine at this time Follow-Up By: 11/08/18 Additional Comments Follow for new TF
[2018-11-06] MEDS: LOVENOX SUB-Q SCH (14:04)
[2018-11-06] MEDS: CLARITIN PO SCH (14:05)
[2018-11-06] MEDS: PEPCID PO SCH (14:05)
[2018-11-06] MEDS: ATIVAN PO SCH ×2 (14:09→21:26)
[2018-11-06] MEDS: LEXAPRO PO SCH (14:39)
[2018-11-06] MEDS: ZESTRIL PO SCH (15:00)
[2018-11-06] MEDS: SODIUM CHLORIDE FLUSH SYRINGE 10 ML IV SCH ×2 (15:13→21:27)
[2018-11-06] MEDS: PERCOCET 5/325 PO PRN (17:59)
[2018-11-06] MEDS: TYLENOL PO PRN (21:33)
[2018-11-07] MEDS: PERCOCET 5/325 PO PRN ×3 (00:05→22:36)
[2018-11-07] MEDS: HumaLOG SUB-Q SCH ×3 (00:12→13:17)
[2018-11-07] MEDS: DUONEB *Not for PRN Use IH SCH ×4 (03:00→21:08)
[2018-11-07] MEDS: TYLENOL PO PRN ×3 (03:52→18:05)
[2018-11-07] MEDS: MAXIPIME/NS 2 GM/100 ML 2 GM/100 ML BAG IV SCH ×3 (06:40→22:36)
[2018-11-07] MEDS: SOLU-Medrol IV SCH (06:41)
[2018-11-07] MEDS: BROVANA NEBU IH SCH ×2 (08:26→21:07)
[2018-11-07] MEDS: PULMICORT IH SCH ×2 (08:26→21:08)
--- NOTE | 2018-11-07 08:49 | Progress Note ---
Assessment and Plan Assessment and plan: 53-year-old woman with a history of hypertension, diabetes, COPD, CHF, bipolar, schizophrenia, chronic pain comes emergency room with complaints of shortness of breath started today. Also complaining of cough productive of yellow phlegm. - Patient Problems (1) Acute hypoxemic respiratory failure Now successfully extubated, Continue to taper steroids Patient reports allergy to pine and could have lead to exacerbation Will recommend Mechanical Engineering Lecturer eval on discharge IV solumedrol, abx and Duonebs to cont (2) COPD exacerbation Current Visit: Yes Status: Acute Plan to address problem: Cont Duonebs IV solumedrol and IV Abx (3) HTN (hypertension) Cont antihypertensives (4) T2DM (type 2 diabetes mellitus) COnt coverage (5) Bipolar 1 disorder Current Visit: Yes Status: Chronic Plan to address problem: COnt antipsychotics (6) Schizophrenia Current Visit: Yes Status: Chronic Qualifiers: Schizophrenia type: unspecified Qualified Code(s): F20.9 - Schizophrenia, unspecified (7) Chronic pain Current Visit: Yes Status: Chronic Qualifiers: Chronic pain type: chronic pain syndrome Qualified Code(s): G89.4 - Chronic pain syndrome Plan to address problem: Cont analgesics (8) Morbid Obesity weightloss advised (9) DVT prophylaxis Current Visit: No Status: Acute Plan to address problem: On Lovenox and GI prophylaxis History Interval history: Patient seen and examined, recently extubated and doing well, no new complaints. Hospitalist Physical - Physical exam Narrative exam: VITAL SIGNS: Reviewed. GENERAL: The patient appeared well nourished and normally developed. morbidly obese, Vital signs as documented. HEAD: No signs of head trauma. EYES: Pupils are equal. Extraocular motions intact. EARS: Hearing grossly intact. MOUTH: Oropharynx is normal. NECK: No adenopathy, no JVD. CHEST: Chest with diminshed breath sounds bilaterally. still with mild expiratory wheezes, No rales, or rhonchi. CARDIAC: Regular rate and rhythm. S1 and S2, without murmurs, gallops, or rubs. VASCULAR: No Edema. Peripheral pulses normal and equal in all extremities. ABDOMEN: Soft, non tender and non distended. No rebound or guarding, and no masses palpated. Bowel Sounds normal. MUSCULOSKELETAL: Good range of motion of all major joints. Extremities without clubbing, cyanosis or edema. NEUROLOGIC EXAM: Alert and oriented x 3 No focal sensory or strength deficits . Speech normal. Follows commands. PSYCHIATRIC: Mood normal. SKIN: No rash or lesions. - Constitutional Vitals: Temp Pulse Resp BP Pulse Ox 97.5 F L 79 20 130/69 95 11/07/18 08:03 11/07/18 08:26 11/07/18 08:26 11/07/18 08:03 11/07/18 08:34 General appearance: Present: severe distress, well-nourished Results - Labs CBC & Chem 7: 11/08/18 05:55 11/08/18 05:55 Labs: Laboratory Last Values WBC 12.4 K/mm3 (4.5-11.0) H 11/06/18 04:07 RBC 4.77 M/mm3 (3.65-5.03) 11/06/18 04:07 Hgb 13.9 gm/dl (10.1-14.3) 11/06/18 04:07 Hct 42.1 % (30.3-42.9) 11/06/18 04:07 MCV 88 fl (79-97) 11/06/18 04:07 MCH 29 pg (28-32) 11/06/18 04:07 MCHC 33 % (30-34) 11/06/18 04:07 RDW 14.8 % (13.2-15.2) 11/06/18 04:07 Plt Count 248 K/mm3 (140-440) 11/06/18 04:07 Lymph % (Auto) 25.3 % (13.4-35.0) 11/05/18 02:30 [place] % (Auto) 6.4 % (0.0-7.3) 11/05/18 02:30 Eos % (Auto) 3.9 % (0.0-4.3) 11/05/18 02:30 Baso % (Auto) 0.6 % (0.0-1.8) 11/05/18 02:30 Lymph # 2.2 K/mm3 (1.2-5.4) 11/05/18 02:30 [place] # 0.6 K/mm3 (0.0-0.8) 11/05/18 02:30 Eos # 0.3 K/mm3 (0.0-0.4) 11/05/18 02:30 Baso # 0.1 K/mm3 (0.0-0.1) 11/05/18 02:30 Add Manual Diff Complete 11/06/18 04:07 Total Counted 100 11/06/18 04:07 Seg Neutrophils % Sales Project Administrator 11/06/18 04:07 Seg Neuts % (Manual) 84.0 % (40.0-70.0) H 11/06/18 04:07 5.0 % 11/06/18 04:07 10.0 % (13.4-35.0) L 11/06/18 04:07 Reactive Lymphs % (Man) 0 % 11/06/18 04:07 1.0 % (0.0-7.3) 11/06/18 04:07 0 % (0.0-4.3) 11/06/18 04:07 0 % (0.0-1.8) 11/06/18 04:07 0 % 11/06/18 04:07 0 % 11/06/18 04:07 0 % 11/06/18 04:07 0 % 11/06/18 04:07 Nucleated RBC % Not Reportable 11/06/18 04:07 Seg Neutrophils # 5.7 K/mm3 (1.8-7.7) 11/05/18 02:30 Seg Neutrophils # Man 10.4 K/mm3 (1.8-7.7) H 11/06/18 04:07 Band Neutrophils # 0.6 K/mm3 11/06/18 04:07 1.2 K/mm3 (1.2-5.4) 11/06/18 04:07 Abs React Lymphs (Man) 0.0 K/mm3 11/06/18 04:07 0.1 K/mm3 (0.0-0.8) 11/06/18 04:07 0.0 K/mm3 (0.0-0.4) 11/06/18 04:07 0.0 K/mm3 (0.0-0.1) 11/06/18 04:07 0.0 K/mm3 11/06/18 04:07 0.0 K/mm3 11/06/18 04:07 0.0 K/mm3 11/06/18 04:07 Blast Cells # 0.0 K/mm3 11/06/18 04:07 WBC Morphology Not Reportable 11/06/18 04:07 Hypersegmented Neuts Not Reportable 11/06/18 04:07 Hyposegmented Neuts Not Reportable 11/06/18 04:07 Hypogranular Neuts Not Reportable 11/06/18 04:07 Not Reportable 11/06/18 04:07 Not Reportable 11/06/18 04:07 Not Reportable 11/06/18 04:07 Not Reportable 11/06/18 04:07 Not Reportable 11/06/18 04:07 Not Reportable 11/06/18 04:07 Consistent w auto 11/06/18 04:07 Not Reportable 11/06/18 04:07 Plt Clumps, EDTA Not Reportable 11/06/18 04:07 Not Reportable 11/06/18 04:07 Not Reportable 11/06/18 04:07 Not Reportable 11/06/18 04:07 Plt Morphology Comment Not Reportable 11/06/18 04:07 RBC Morphology Not Reportable 11/06/18 04:07 Dimorphic RBCs Not Reportable 11/06/18 04:07 Not Reportable 11/06/18 04:07 Not Reportable 11/06/18 04:07 Not Reportable 11/06/18 04:07 1+ 11/06/18 04:07 Not Reportable 11/06/18 04:07 Not Reportable 11/06/18 04:07 Not Reportable 11/06/18 04:07 Not Reportable 11/06/18 04:07 Not Reportable 11/06/18 04:07 Not Reportable 11/06/18 04:07 Not Reportable 11/06/18 04:07 Not Reportable 11/06/18 04:07 Not Reportable 11/06/18 04:07 Not Reportable 11/06/18 04:07 Not Reportable 11/06/18 04:07 Not Reportable 11/06/18 04:07 Not Reportable 11/06/18 04:07 Not Reportable 11/06/18 04:07 Not Reportable 11/06/18 04:07 Acanthocytes (Spur) Not Reportable 11/06/18 04:07 Rouleaux Not Reportable 11/06/18 04:07 Not Reportable 11/06/18 04:07 Not Reportable 11/06/18 04:07 Not Reportable 11/06/18 04:07 Not Reportable 11/06/18 04:07 Hem Pathologist Commnt No 11/06/18 04:07 1905.84 ng/mlDDU (0-234) H 11/05/18 14:38 POC ABG pH 7.422 (7.35-7.45) 11/06/18 10:10 POC ABG pCO2 41.6 (35-45) 11/06/18 10:10 POC ABG pO2 86 (80-105) 11/06/18 10:10 POC ABG HCO3 27.1 (22-26 mml/L) 11/06/18 10:10 POC ABG Total CO2 28 (23-27mmol/L) 11/06/18 10:10 POC ABG O2 Sat 97 11/06/18 10:10 POC ABG Base Excess 3 ((-2) - (+3)mmol/L) 11/06/18 10:10 55 % 11/06/18 10:10 Sodium 140 mmol/L (137-145) 11/06/18 07:42 Potassium 4.5 mmol/L (3.6-5.0) 11/06/18 07:42 Chloride 99.5 mmol/L (98-107) 11/06/18 07:42 Carbon Dioxide 26 mmol/L (22-30) 11/06/18 07:42 19 mmol/L 11/06/18 07:42 BUN 16 mg/dL (7-17) 11/06/18 07:42 1.2 mg/dL (0.7-1.2) 11/06/18 07:42 Estimated GFR 47 ml/min 11/06/18 07:42 13 % 11/06/18 07:42 Glucose 198 mg/dL (65-100) H 11/06/18 07:42 POC Glucose 228 (70-105) H 11/07/18 05:51 Calcium 10.2 mg/dL (8.4-10.2) 11/06/18 07:42 Active Medications - Current Medications Current Medications: Generic Name Dose Route Start Last Admin Trade Name Freq PRN Reason Stop Dose Admin Acetaminophen 650 mg 11/05/18 04:15 11/07/18 03:52 Tylenol PO 650 mg Q4H PRN Administration Pain MILD(1-3)/Fever >100.5/KHAN Albuterol/Ipratropium 1 ampul 11/05/18 08:00 11/07/18 08:26 Duoneb *Not For Prn Use* IH Not Given Q6HRT [facility] Lipase/Protease/Amylase 1 each 11/05/18 17:25 Coreen Shaffer 10,500 Unit FEEDTUBE PRN PRN For Clogged Feeding Tube Arformoterol Tartrate 15 mcg 11/05/18 12:45 11/07/18 08:26 Brovana Nebu IH 15 mcg Q12HRT VIC Administration Budesonide 0.5 mg 11/05/18 20:00 11/07/18 08:26 Pulmicort IH 0.5 mg Q12HRT VIC Administration Dextrose 50 ml 11/05/18 04:15 D50w (25gm) Syringe IV PRN PRN Hypoglycemia Enoxaparin Sodium 40 mg 11/05/18 10:00 11/06/18 14:04 Lovenox SUB-Q 40 mg QDAY@1000 VIC Administration Escitalopram Oxalate 20 mg 11/06/18 10:00 11/06/18 14:39 Lexapro PO 20 mg QDAY VIC Administration Famotidine 20 mg 11/06/18 10:00 11/06/18 14:05 Pepcid PO 20 mg QDAY VIC Administration Fentanyl 50 mcg 11/05/18 11:39 Sublimaze IV Q10MIN PRN ANALGESIA Hydrophilic Ointment 1 applic 11/05/18 11:39 Vaseline Lip Therapy TP Q2HR PRN Dry Lips Cefepime HCl 2 gm in 100 mls @ 200 mls/hr 11/06/18 07:00 11/07/18 06:40 Maxipime/Ns 2 Gm/100 Ml IV 200 mls/hr Q8HR VIC Administration Protocol Insulin Human Lispro 0 unit 11/06/18 07:00 11/07/18 06:45 Humalog SUB-Q 4 unit Q6HR VIC Administration Protocol Lisinopril 20 mg 11/06/18 10:00 11/06/18 15:00 Zestril PO 20 mg DAILY VIC Administration Loratadine 10 mg 11/06/18 10:00 11/06/18 14:05 Claritin PO 10 mg QDAY VIC Administration Lorazepam 1 mg 11/06/18 10:00 11/06/18 21:26 Ativan PO 1 mg Q12HR VIC Administration Methylprednisolone Sodium Succinate 60 mg 11/07/18 08:42 Solu-Medrol IV Q8HR VIC Multi-Ingred Cream/Lotion/Oil/Oint 1 applic 11/05/18 11:39 Artificial Tears Ophth Oint OU Q4HR PRN Dry Eye(s) Ondansetron HCl 4 mg 11/05/18 04:15 Zofran IV Q8H PRN Nausea And Vomiting Oxycodone/Acetaminophen 1 tab 11/06/18 17:32 11/07/18 06:41 Percocet 5/325 PO 1 tab Q6H PRN Administration Pain, Moderate (4-6) Simple Syrup 15 ml 11/05/18 17:25 Simple Syrup FEEDTUBE PRN PRN Hypoglycemia Simple Syrup 30 ml 11/05/18 17:25 Simple Syrup FEEDTUBE PRN PRN Hypoglycemia Sodium Bicarbonate 325 mg 11/05/18 17:25 Sodium Bicarbonate FEEDTUBE PRN PRN For Clogged Feeding Tube Sodium Chloride 10 ml 11/05/18 10:00 11/06/18 21:27 Sodium Chloride Flush Syringe 10 Ml IV 10 ml BID VIC Administration Sodium Chloride 10 ml 11/05/18 04:15 Sodium Chloride Flush Syringe 10 Ml IV PRN PRN LINE FLUSH Nutrition/Malnutrition Assess - Dietary Evaluation Nutrition/Malnutrition Findings: Nutrition Notes Start: 11/05/18 17:14 Freq: Status: Active Protocol: Document 11/05/18 17:14 RM (Rec: 11/05/18 17:25 RM [id number]) Nutrition Notes Need for Assessment generated from: MD Order Initial or Follow up Assessment Current Diagnosis COPD,Diabetes,Hypertension, Heart Failure Other Pertinent Diagnosis Schizophrenia, Bipolar Current Diet Cardiac/Consistent CHO Labs/Tests Reviewed Pertinent Medications Solu-medrol, Propofol Height 5 ft 3 in Weight 128.8 kg [place] Body Weight (kg) 52.27 BMI 50.3 Subjective/Other Information Consulted for TF recommendation. Pt on vent. Burn Absent Trauma Absent #1 Nutrition Diagnosis Inadequate oral intake Etiology on vent As Evidenced by Signs and Symptoms no diet ordered Is patient on ventilator? Yes Is Patient Ambulatory and/or Out of Bed No REE-([facility]-confined to bed) 2232.192 Kcal/Kg value to use for calculation 14 Approximate Energy Requirements Using 1803 kcal/Kg Calculation Used for Recommendations Kcal/kg Additional Notes Protein Needs: 131g (2.5 g/kg IBW) Fluid Needs: 1 ml/kcal Nutrition Intervention Nutrition Support: Vital 1.2 at 65 ml/hr. Water flush of 100 mls q 4 hrs . Kcal 1,872 Protein (gm) 117 Fluid (mL) 1,256 Goal #1 TF tolerance Goal #2 Meet at least 80% of calorie and protein needs via TF Anticipated Discharge Needs: Unable to determine at this time Follow-Up By: 11/08/18 Additional Comments Follow for new TF
[2018-11-07] MEDS: LEXAPRO PO SCH (09:46)
[2018-11-07] MEDS: PEPCID PO SCH (09:46)
[2018-11-07] MEDS: ZESTRIL PO SCH (09:47)
[2018-11-07] MEDS: ATIVAN PO SCH ×2 (09:47→22:36)
[2018-11-07] MEDS: SODIUM CHLORIDE FLUSH SYRINGE 10 ML IV SCH ×2 (09:48→22:37)
[2018-11-07] MEDS: LOVENOX SUB-Q SCH (09:50)
[2018-11-07] MEDS: CLARITIN PO SCH (13:16)
[2018-11-07] MEDS ORDERED: SOLU-Medrol IV SCH (14:00)
--- NOTE | 2018-11-07 17:05 | Progress Note ---
Assessment and Plan Patient alert, awake. resting on 4 litres O2.O2 saturation 95%. Patient Morbidly Obese. Patient has history of COPD and Sleep apnea. Patient about to go on BIPAP - Patient Problems (1) Acute exacerbation of chronic obstructive pulmonary disease (COPD) Current Visit: No Status: Acute Plan to address problem: O2 4 litres via nasal canula. BIPAP during night time and Prn for shortness of breath during day time. Continue solumedrol. Continue cepepine, Continue S/C Lovenox. Continue PEPCID. (2) Acute hypoxemic respiratory failure Current Visit: No Status: Acute Plan to address problem: O2 4 litres via nasal canula. BIPAP during night time and Prn for shortness of breath during day time. Continue solumedrol. Continue cepepine, Continue S/C Lovenox. Continue PEPCID (3) Morbid obesity with BMI of 50.0-59.9, adult Current Visit: No Status: Acute Plan to address problem: Diet and exercise. (4) Obesity hypoventilation syndrome Current Visit: No Status: Acute Plan to address problem: BIPAP during night time. BIPAP PRN during day time. (5) Bipolar 1 disorder Current Visit: Yes Status: Chronic Plan to address problem: Management as per psychiatry. (6) Schizophrenia Current Visit: Yes Status: Chronic Qualifiers: Schizophrenia type: unspecified Qualified Code(s): F20.9 - Schizophrenia, unspecified Plan to address problem: Management as per Psychiatry. (7) T2DM (type 2 diabetes mellitus) Current Visit: Yes Status: Chronic Qualifiers: Diabetes mellitus exterminator helper insulin use: unspecified exterminator helper insulin use status Plan to address problem: Management as per primary care. (8) HTN (hypertension) Current Visit: No Status: Chronic Qualifiers: Hypertension type: essential hypertension Qualified Code(s): I10 - Essential (primary) hypertension Plan to address problem: Management as per primary care. (9) Nicotine dependence Current Visit: No Status: Chronic Qualifiers: Nicotine product type: cigarettes Plan to address problem: Counselled to stop smoking. Subjective Date of service: 11/07/18 Principal diagnosis: Acute resp failure and Copd exacerbation Interval history: Patient alert, awake. resting on 4 litres O2.O2 saturation 95%. Patient Morbidly Obese. Patient has history of COPD and Sleep apnea. Patient about to go on BIPAP. Objective Vital Signs - 12hr 11/07/18 11/07/18 11/07/18 07:26 08:03 08:26 Temperature 97.5 F L Pulse Rate 84 67 Pulse Rate [ 79 Anterior Bilateral Throughout] Respiratory 18 Rate Respiratory 20 Rate [Anterior Bilateral Throughout] Blood Pressure 130/69 O2 Sat by Pulse 93 Oximetry 11/07/18 11/07/18 11/07/18 08:34 08:40 09:47 Temperature Pulse Rate 76 Pulse Rate [ 81 Anterior Bilateral Throughout] Respiratory Rate Respiratory 20 Rate [Anterior Bilateral Throughout] Blood Pressure O2 Sat by Pulse 95 Oximetry 11/07/18 11/07/18 11/07/18 13:00 13:43 13:53 Temperature 98.2 F Pulse Rate 76 Pulse Rate [ 75 77 Anterior Bilateral Throughout] Respiratory 18 Rate Respiratory 20 20 Rate [Anterior Bilateral Throughout] Blood Pressure 121/72 O2 Sat by Pulse 94 Oximetry 11/07/18 16:09 Temperature Pulse Rate Pulse Rate [ Anterior Bilateral Throughout] Respiratory 18 Rate Respiratory Rate [Anterior Bilateral Throughout] Blood Pressure O2 Sat by Pulse Oximetry Constitutional: no acute distress, alert, other (Morbidley Obese.) Eyes: non-icteric ENT: oropharynx moist Neck: supple, no lymphadenopathy Ascultation: Bilateral: diminished breath sounds (At the bases.), other (Prolonged expiratory phase.) Cardiovascular: regular rate and rhythm Gastrointestinal: normoactive bowel sounds, soft, non-tender, other (Obese.) Integumentary: normal Extremities: no cyanosis, no edema Neurologic: normal mental status, non-focal exam, pupils equal and round, CN II- XII normal Psychiatric: mood appropriate CBC and BMP: 11/06/18 04:07 11/06/18 07:42 ABG, PT/INR, D-dimer: ABG POC ABG pH 7.333 (7.35-7.45) L 11/07/18 15:33 POC ABG pCO2 48.0 (35-45) H 11/07/18 15:33 POC ABG pO2 79 (80-105) L 11/07/18 15:33 POC ABG HCO3 25.5 (22-26 mml/L) 11/07/18 15:33 POC ABG Total CO2 27 (23-27mmol/L) 11/07/18 15:33 POC ABG O2 Sat 95 11/07/18 15:33 PT/INR, D-dimer 1905.84 ng/mlDDU (0-234) H 11/05/18 14:38 Abnormal lab findings: Abnormal Labs 11/05/18 11/05/18 11/05/18 02:30 02:30 02:51 WBC Hgb 14.5 H MCHC 36 H Seg Neuts % (Manual) Lymphocytes % (Manual) Seg Neutrophils # Salvador D-Dimer POC ABG pH 7.322 L POC ABG pCO2 55.5 H POC ABG pO2 Carbon Dioxide 31 H BUN 6 L Glucose POC Glucose 11/05/18 11/05/18 11/05/18 10:05 11:02 11:54 WBC Hgb MCHC Seg Neuts % (Manual) Lymphocytes % (Manual) Seg Neutrophils # Salvador D-Dimer POC ABG pH 7.137 L POC ABG pCO2 POC ABG pO2 Carbon Dioxide BUN Glucose POC Glucose 171 H 165 H 11/05/18 11/05/18 11/05/18 12:29 14:24 14:38 WBC Hgb MCHC Seg Neuts % (Manual) Lymphocytes % (Manual) Seg Neutrophils # Salvador D-Dimer 1905.84 H POC ABG pH POC ABG pCO2 POC ABG pO2 75 L Carbon Dioxide BUN Glucose POC Glucose 212 H 11/05/18 11/06/18 11/06/18 21:15 04:07 04:07 WBC 12.4 H Hgb MCHC Seg Neuts % (Manual) 84.0 H Lymphocytes % (Manual) 10.0 L Seg Neutrophils # Man 10.4 H D-Dimer POC ABG pH POC ABG pCO2 POC ABG pO2 Carbon Dioxide BUN Glucose 190 H POC Glucose 212 H 11/06/18 11/06/18 11/06/18 04:21 07:36 07:42 WBC Hgb MCHC Seg Neuts % (Manual) Lymphocytes % (Manual) Seg Neutrophils # Salvador D-Dimer POC ABG pH POC ABG pCO2 POC ABG pO2 66 L Carbon Dioxide BUN Glucose 198 H POC Glucose 197 H 11/06/18 11/06/18 11/06/18 09:25 11:47 15:22 WBC Hgb MCHC Seg Neuts % (Manual) Lymphocytes % (Manual) Seg Neutrophils # Man D-Dimer POC ABG pH POC ABG pCO2 POC ABG pO2 Carbon Dioxide BUN Glucose POC Glucose 190 H 188 H 190 H 11/06/18 11/07/18 11/07/18 23:05 05:51 13:06 WBC Hgb MCHC Seg Neuts % (Manual) Lymphocytes % (Manual) Seg Neutrophils # Man D-Dimer POC ABG pH POC ABG pCO2 POC ABG pO2 Carbon Dioxide BUN Glucose POC Glucose 287 H 228 H 260 H 11/07/18 15:33 WBC Hgb MCHC Seg Neuts % (Manual) Lymphocytes % (Manual) Seg Neutrophils # Man D-Dimer POC ABG pH 7.333 L POC ABG pCO2 48.0 H POC ABG pO2 79 L Carbon Dioxide BUN Glucose POC Glucose Chest x-ray: report reviewed (Reported no infiltrates, effusion or pneumothorax.), image reviewed
[2018-11-07] MEDS: HYDROMET PO PRN (18:05)
[2018-11-07] MEDS: SODIUM CHLORIDE FLUSH SYRINGE 10 ML IV PRN (22:37)
[2018-11-08] MEDS: HYDROMET PO PRN ×3 (00:50→17:56)
[2018-11-08] MEDS: HumaLOG SUB-Q SCH ×6 (01:22→17:12)
[2018-11-08] MEDS: DUONEB *Not for PRN Use IH SCH ×4 (02:05→20:11)
[2018-11-08] MEDS: TYLENOL PO PRN ×2 (04:15→09:37)
[2018-11-08] MEDS: SOLU-Medrol IV SCH ×5 (04:16→21:49)
[2018-11-08] MEDS: MAXIPIME/NS 2 GM/100 ML 2 GM/100 ML BAG IV SCH ×3 (05:44→21:49)
[2018-11-08] MEDS: PERCOCET 5/325 PO PRN ×3 (05:44→20:33)
[2018-11-08 06:43] LABS: Hematocrit 41.5 % (30.3-42.9); Hemoglobin 13.6 gm/dl (10.1-14.3); Mean Corpuscular HGB Conc 33 % (30-34); Mean Corpuscular Volume 89 fl (79-97); Platelet Count 254 K/mm3 (140-440); Red Blood Count 4.65 M/mm3 (3.65-5.03); Red Cell Distribution Width 14.9 % (13.2-15.2)
[2018-11-08 06:56] LABS: BUN/Creatinine Ratio 29; Blood Urea Nitrogen 20 mg/dL (7-17); Calcium 10.3 mg/dL (8.4-10.2); Hemolysis Index 5
[2018-11-08] MEDS: PULMICORT IH SCH ×2 (08:29→20:10)
[2018-11-08] MEDS: BROVANA NEBU IH SCH ×2 (08:29→20:10)
[2018-11-08] MEDS: CLARITIN PO SCH (09:27)
[2018-11-08] MEDS: ZESTRIL PO SCH (09:27)
[2018-11-08] MEDS: LEXAPRO PO SCH (09:27)
[2018-11-08] MEDS: ATIVAN PO SCH ×2 (09:27→21:49)
[2018-11-08] MEDS: PEPCID PO SCH (09:27)
[2018-11-08] MEDS: LOVENOX SUB-Q SCH (09:32)
[2018-11-08] MEDS: SODIUM CHLORIDE FLUSH SYRINGE 10 ML IV SCH ×2 (12:57→21:49)
--- NOTE | 2018-11-08 16:00 | Progress Note ---
Assessment and Plan Assessment and plan: 53-year-old woman with a history of hypertension, diabetes, COPD, CHF, bipolar, schizophrenia, chronic pain comes emergency room with complaints of shortness of breath started today. Also complaining of cough productive of yellow phlegm. * Patient had a rapid response and code blue and needed intubation but subsequently extubated * She continues on slow taper of IV solumedrol, although complaints of pleuritic chest pain * CTA chest pending. a Dose of Lovenox given. - Patient Problems (1) Acute hypoxemic respiratory failure Now successfully extubated, Continue to taper steroids Patient reports allergy to pine and could have lead to exacerbation Will recommend Exchange Trouble Shooter barbara on discharge IV solumedrol, abx and Duonebs to cont Pulmonary following. (2) COPD exacerbation Current Visit: Yes Status: Acute Plan to address problem: Cont Duonebs IV solumedrol and IV Abx (3) Pleuritic chest pain Elevated d.dimer obtain stat CTA Give A DOSE OF LOVENOX TILL CTA RESULTED (4) HTN (hypertension) Cont antihypertensives (5) T2DM (type 2 diabetes mellitus) COnt coverage (6) Bipolar 1 disorder Current Visit: Yes Status: Chronic Plan to address problem: COnt antipsychotics (7) Schizophrenia Current Visit: Yes Status: Chronic Qualifiers: Schizophrenia type: unspecified Qualified Code(s): F20.9 - Schizophrenia, unspecified (8) Chronic pain Current Visit: Yes Status: Chronic Qualifiers: Chronic pain type: chronic pain syndrome Qualified Code(s): G89.4 - Chronic pain syndrome Plan to address problem: Cont analgesics (9) Morbid Obesity weightloss advised (10) DVT prophylaxis Current Visit: No Status: Acute Plan to address problem: On Lovenox and GI prophylaxis History Interval history: Patient seen and examined, still reports pleuritic chest pain. Hospitalist Physical - Physical exam Narrative exam: VITAL SIGNS: Reviewed. GENERAL: The patient appeared well nourished and normally developed. morbidly obese, Vital signs as documented. HEAD: No signs of head trauma. EYES: Pupils are equal. Extraocular motions intact. EARS: Hearing grossly intact. MOUTH: Oropharynx is normal. NECK: No adenopathy, no JVD. CHEST: Chest with diminshed breath sounds bilaterally. still with mild expiratory wheezes, No rales, or rhonchi. CARDIAC: Regular rate and rhythm. S1 and S2, without murmurs, gallops, or rubs. VASCULAR: No Edema. Peripheral pulses normal and equal in all extremities. ABDOMEN: Soft, non tender and non distended. No rebound or guarding, and no masses palpated. Bowel Sounds normal. MUSCULOSKELETAL: Good range of motion of all major joints. Extremities without clubbing, cyanosis or edema. NEUROLOGIC EXAM: Alert and oriented x 3 No focal sensory or strength deficits. Speech normal. Follows commands. PSYCHIATRIC: Mood normal. SKIN: No rash or lesions. - Constitutional Vitals: Temp Pulse Resp BP Pulse Ox 97.3 F L 78 20 150/87 96 11/08/18 08:43 11/08/18 14:39 11/08/18 14:39 11/08/18 08:43 11/08/18 14:17 General appearance: Present: severe distress, well-nourished Results - Labs CBC & Chem 7: 11/08/18 05:55 11/08/18 05:55 Labs: Laboratory Last Values WBC 13.1 K/mm3 (4.5-11.0) H 11/08/18 05:55 RBC 4.65 M/mm3 (3.65-5.03) 11/08/18 05:55 Hgb 13.6 gm/dl (10.1-14.3) 11/08/18 05:55 Hct 41.5 % (30.3-42.9) 11/08/18 05:55 MCV 89 fl (79-97) 11/08/18 05:55 MCH 29 pg (28-32) 11/08/18 05:55 MCHC 33 % (30-34) 11/08/18 05:55 RDW 14.9 % (13.2-15.2) 11/08/18 05:55 Plt Count 254 K/mm3 (140-440) 11/08/18 05:55 Lymph % (Auto) 25.3 % (13.4-35.0) 11/05/18 02:30 Wirt % (Auto) 6.4 % (0.0-7.3) 11/05/18 02:30 Eos % (Auto) 3.9 % (0.0-4.3) 11/05/18 02:30 Baso % (Auto) 0.6 % (0.0-1.8) 11/05/18 02:30 Lymph # 2.2 K/mm3 (1.2-5.4) 11/05/18 02:30 Wirt # 0.6 K/mm3 (0.0-0.8) 11/05/18 02:30 Eos # 0.3 K/mm3 (0.0-0.4) 11/05/18 02:30 Baso # 0.1 K/mm3 (0.0-0.1) 11/05/18 02:30 Add Manual Diff Complete 11/06/18 04:07 Total Counted 100 11/06/18 04:07 Seg Neutrophils % Audio Video Mechanic 11/06/18 04:07 Seg Neuts % (Manual) 84.0 % (40.0-70.0) H 11/06/18 04:07 5.0 % 11/06/18 04:07 10.0 % (13.4-35.0) L 11/06/18 04:07 Reactive Lymphs % (Man) 0 % 11/06/18 04:07 1.0 % (0.0-7.3) 11/06/18 04:07 0 % (0.0-4.3) 11/06/18 04:07 0 % (0.0-1.8) 11/06/18 04:07 0 % 11/06/18 04:07 0 % 11/06/18 04:07 0 % 11/06/18 04:07 0 % 11/06/18 04:07 Nucleated RBC % Not Reportable 11/06/18 04:07 Seg Neutrophils # 5.7 K/mm3 (1.8-7.7) 11/05/18 02:30 Seg Neutrophils # Man 10.4 K/mm3 (1.8-7.7) H 11/06/18 04:07 Band Neutrophils # 0.6 K/mm3 11/06/18 04:07 1.2 K/mm3 (1.2-5.4) 11/06/18 04:07 Abs React Lymphs (Man) 0.0 K/mm3 11/06/18 04:07 0.1 K/mm3 (0.0-0.8) 11/06/18 04:07 0.0 K/mm3 (0.0-0.4) 11/06/18 04:07 0.0 K/mm3 (0.0-0.1) 11/06/18 04:07 0.0 K/mm3 11/06/18 04:07 0.0 K/mm3 11/06/18 04:07 0.0 K/mm3 11/06/18 04:07 Blast Cells # 0.0 K/mm3 11/06/18 04:07 WBC Morphology Not Reportable 11/06/18 04:07 Hypersegmented Neuts Not Reportable 11/06/18 04:07 Hyposegmented Neuts Not Reportable 11/06/18 04:07 Hypogranular Neuts Not Reportable 11/06/18 04:07 Not Reportable 11/06/18 04:07 Not Reportable 11/06/18 04:07 Not Reportable 11/06/18 04:07 Not Reportable 11/06/18 04:07 Not Reportable 11/06/18 04:07 Not Reportable 11/06/18 04:07 Consistent w auto 11/06/18 04:07 Not Reportable 11/06/18 04:07 Plt Clumps, EDTA Not Reportable 11/06/18 04:07 Not Reportable 11/06/18 04:07 Not Reportable 11/06/18 04:07 Not Reportable 11/06/18 04:07 Plt Morphology Comment Not Reportable 11/06/18 04:07 RBC Morphology Not Reportable 11/06/18 04:07 Dimorphic RBCs Not Reportable 11/06/18 04:07 Not Reportable 11/06/18 04:07 Not Reportable 11/06/18 04:07 Not Reportable 11/06/18 04:07 1+ 11/06/18 04:07 Not Reportable 11/06/18 04:07 Not Reportable 11/06/18 04:07 Not Reportable 11/06/18 04:07 Not Reportable 11/06/18 04:07 Not Reportable 11/06/18 04:07 Not Reportable 11/06/18 04:07 Not Reportable 11/06/18 04:07 Not Reportable 11/06/18 04:07 Not Reportable 11/06/18 04:07 Not Reportable 11/06/18 04:07 Not Reportable 11/06/18 04:07 Not Reportable 11/06/18 04:07 Not Reportable 11/06/18 04:07 Not Reportable 11/06/18 04:07 Not Reportable 11/06/18 04:07 Acanthocytes (Spur) Not Reportable 11/06/18 04:07 Rouleaux Not Reportable 11/06/18 04:07 Not Reportable 11/06/18 04:07 Not Reportable 11/06/18 04:07 Not Reportable 11/06/18 04:07 Not Reportable 11/06/18 04:07 Hem Pathologist Commnt No 11/06/18 04:07 1905.84 ng/mlDDU (0-234) H 11/05/18 14:38 POC ABG pH 7.333 (7.35-7.45) L 11/07/18 15:33 POC ABG pCO2 48.0 (35-45) H 11/07/18 15:33 POC ABG pO2 79 (80-105) L 11/07/18 15:33 POC ABG HCO3 25.5 (22-26 mml/L) 11/07/18 15:33 POC ABG Total CO2 27 (23-27mmol/L) 11/07/18 15:33 POC ABG O2 Sat 95 11/07/18 15:33 POC ABG Base Excess 0 ((-2) - (+3)mmol/L) 11/07/18 15:33 32 % 11/07/18 15:33 Sodium 136 mmol/L (137-145) L 11/08/18 05:55 Potassium 5.1 mmol/L (3.6-5.0) H 11/08/18 05:55 Chloride 97.8 mmol/L (98-107) L 11/08/18 05:55 Carbon Dioxide 27 mmol/L (22-30) 11/08/18 05:55 16 mmol/L 11/08/18 05:55 BUN 20 mg/dL (7-17) H 11/08/18 05:55 0.7 mg/dL (0.7-1.2) 11/08/18 05:55 Estimated GFR > 60 ml/min 11/08/18 05:55 29 % 11/08/18 05:55 Glucose 260 mg/dL (65-100) H 11/08/18 05:55 POC Glucose 280 (70-105) H 11/08/18 11:30 Calcium 10.3 mg/dL (8.4-10.2) H 11/08/18 05:55 Active Medications - Current Medications Current Medications: Generic Name Dose Route Start Last Admin Trade Name Freq PRN Reason Stop Dose Admin Acetaminophen 650 mg 11/05/18 04:15 11/08/18 09:37 Tylenol PO 650 mg Q4H PRN Administration Pain MILD(1-3)/Fever >100.5/KHAN Albuterol/Ipratropium 1 ampul 11/05/18 08:00 11/08/18 14:17 Duoneb *Not For Prn Use* IH 1 ampul Q6HRT VIC Administration Lipase/Protease/Amylase 1 each 11/05/18 17:25 Pancrelincoln Shaffer 10,500 Unit FEEDTUBE PRN PRN For Clogged Feeding Tube Arformoterol Tartrate 15 mcg 11/05/18 12:45 11/08/18 08:29 Brovana Nebu IH 15 mcg Q12HRT VIC Administration Budesonide 0.5 mg 11/05/18 20:00 11/08/18 08:29 Pulmicort IH 0.5 mg Q12HRT VIC Administration Dextrose 50 ml 11/05/18 04:15 D50w (25gm) Syringe IV PRN PRN Hypoglycemia Enoxaparin Sodium 40 mg 11/05/18 10:00 11/08/18 09:32 Lovenox SUB-Q 40 mg QDAY@1000 VIC Administration Escitalopram Oxalate 20 mg 11/06/18 10:00 11/08/18 09:27 Lexapro PO 20 mg QDAY VIC Administration Famotidine 20 mg 11/06/18 10:00 11/08/18 09:27 Pepcid PO 20 mg QDAY VIC Administration Fentanyl 50 mcg 11/05/18 11:39 Sublimaze IV Q10MIN PRN ANALGESIA Hydrocodone Bit/Homatropine Methylb 10 ml 11/07/18 15:02 11/08/18 09:26 Hydromet PO 10 ml Q6H PRN Administration Cough Hydrophilic Ointment 1 applic 11/05/18 11:39 Vaseline Lip Therapy TP Q2HR PRN Dry Lips Cefepime HCl 2 gm in 100 mls @ 200 mls/hr 11/06/18 07:00 11/08/18 13:03 Maxipime/Ns 2 Gm/100 Ml IV 200 mls/hr Q8HR VIC Administration Protocol Insulin Human Lispro 0 unit 11/06/18 07:00 11/08/18 13:14 Humalog SUB-Q 6 unit Q6HR VIC Administration Protocol Lisinopril 20 mg 11/06/18 10:00 11/08/18 09:27 Zestril PO 20 mg DAILY VIC Administration Loratadine 10 mg 11/06/18 10:00 11/08/18 09:27 Claritin PO 10 mg QDAY VIC Administration Lorazepam 1 mg 11/06/18 10:00 11/08/18 09:27 Ativan PO 1 mg Q12HR VIC Administration Methylprednisolone Sodium Succinate 80 mg 11/07/18 18:30 11/08/18 13:16 Solu-Medrol IV Not Given Q8HR [facility] Multi-Ingred Cream/Lotion/Oil/Oint 1 applic 11/05/18 11:39 Artificial Tears Ophth Oint OU Q4HR PRN Dry Eye(s) Ondansetron HCl 4 mg 11/05/18 04:15 Zofran IV Q8H PRN Nausea And Vomiting Oxycodone/Acetaminophen 1 tab 11/06/18 17:32 11/08/18 13:03 Percocet 5/325 PO 1 tab Q6H PRN Administration Pain, Moderate (4-6) Simple Syrup 15 ml 11/05/18 17:25 Simple Syrup FEEDTUBE PRN PRN Hypoglycemia Simple Syrup 30 ml 11/05/18 17:25 Simple Syrup FEEDTUBE PRN PRN Hypoglycemia Sodium Bicarbonate 325 mg 11/05/18 17:25 Sodium Bicarbonate FEEDTUBE PRN PRN For Clogged Feeding Tube Sodium Chloride 10 ml 11/05/18 10:00 11/08/18 12:57 Sodium Chloride Flush Syringe 10 Ml IV 10 ml BID VIC Administration Sodium Chloride 10 ml 11/05/18 04:15 11/07/18 22:37 Sodium Chloride Flush Syringe 10 Ml IV 10 ml PRN PRN Administration LINE FLUSH Nutrition/Malnutrition Assess - Dietary Evaluation Nutrition/Malnutrition Findings: Nutrition Notes Start: 11/05/18 17:14 Freq: Status: Active Protocol: Document 11/05/18 17:14 RM (Rec: 11/05/18 17:25 RM [id number]) Nutrition Notes Need for Assessment generated from: MD Order Initial or Follow up Assessment Current Diagnosis COPD,Diabetes,Hypertension, Heart Failure Other Pertinent Diagnosis Schizophrenia, Bipolar Current Diet Cardiac/Consistent CHO Labs/Tests Reviewed Pertinent Medications Solu-medrol, Propofol Height 5 ft 3 in Weight 128.8 kg [employer] Body Weight (kg) 52.27 BMI 50.3 Subjective/Other Information Consulted for TF recommendation. Pt on vent. Burn Absent Trauma Absent #1 Nutrition Diagnosis Inadequate oral intake Etiology on vent As Evidenced by Signs and Symptoms no diet ordered Is patient on ventilator? Yes Is Patient Ambulatory and/or Out of Bed No REE-([facility]-confined to bed) 2232.192 Kcal/Kg value to use for calculation 14 Approximate Energy Requirements Using 1803 kcal/Kg Calculation Used for Recommendations Kcal/kg Additional Notes Protein Needs: 131g (2.5 g/kg IBW) Fluid Needs: 1 ml/kcal Nutrition Intervention Nutrition Support: Vital 1.2 at 65 ml/hr. Water flush of 100 mls q 4 hrs . Kcal 1,872 Protein (gm) 117 Fluid (mL) 1,256 Goal #1 TF tolerance Goal #2 Meet at least 80% of calorie and protein needs via TF Anticipated Discharge Needs: Unable to determine at this time Follow-Up By: 11/08/18 Additional Comments Follow for new TF
--- NOTE | 2018-11-08 17:46 | Progress Note ---
Assessment and Plan Patient alert, awake. resting on 3 litters O2. Says breathing better. O2 Sat 93%. No acute respiratory distress. Patient go on BiPAP during the night. - Patient Problems (1) Acute exacerbation of chronic obstructive pulmonary disease (COPD) Current Visit: No Status: Acute Plan to address problem: O2 3 litres via nasal canula. BIPAP during night time and Prn for shortness of breath during day time. Continue solumedrol. Continue cepepine, Continue S/C Lovenox. Continue PEPCID. (2) Acute hypoxemic respiratory failure Current Visit: No Status: Acute Plan to address problem: O2 3 litres via nasal canula. BIPAP during night time and Prn for shortness of breath during day time. Continue solumedrol. Continue cepepine, Continue S/C Lovenox. Continue PEPCID (3) Morbid obesity with BMI of 50.0-59.9, adult Current Visit: No Status: Acute Plan to address problem: Diet and exercise. (4) Obesity hypoventilation syndrome Current Visit: No Status: Acute Plan to address problem: BIPAP during night time. BIPAP PRN during day time. (5) Bipolar 1 disorder Current Visit: Yes Status: Chronic Plan to address problem: Management as per psychiatry. (6) Schizophrenia Current Visit: Yes Status: Chronic Qualifiers: Schizophrenia type: unspecified Qualified Code(s): F20.9 - Schizophrenia, unspecified Plan to address problem: Management as per Psychiatry. (7) T2DM (type 2 diabetes mellitus) Current Visit: Yes Status: Chronic Qualifiers: Diabetes mellitus long-term insulin use: unspecified [employer] advisors insulin use status Plan to address problem: Management as per primary care. (8) HTN (hypertension) Current Visit: No Status: Chronic Qualifiers: Hypertension type: essential hypertension Qualified Code(s): I10 - Essential (primary) hypertension Plan to address problem: Management as per primary care. (9) Nicotine dependence Current Visit: No Status: Chronic Qualifiers: Nicotine product type: cigarettes Plan to address problem: Counselled to stop smoking. Subjective Date of service: 11/08/18 Principal diagnosis: Acute resp failure and Copd exacerbation Interval history: Patient alert, awake. resting on 3 litters O2. Says breathing better. O2 Sat 93%. No acute respiratory distress. Patient go on BiPAP during the night. Objective Vital Signs - 12hr 11/08/18 11/08/18 11/08/18 08:34 08:43 08:58 Temperature 97.3 F L Pulse Rate 63 Pulse Rate [ 74 72 Anterior Bilateral Throughout] Pulse Rate [ From Monitor] Respiratory 18 Rate Respiratory 22 20 Rate [Anterior Bilateral Throughout] Blood Pressure 150/87 O2 Sat by Pulse 93 Oximetry 11/08/18 11/08/18 11/08/18 10:00 14:17 14:18 Temperature Pulse Rate Pulse Rate [ 86 Anterior Bilateral Throughout] Pulse Rate [ 86 From Monitor] Respiratory Rate Respiratory 20 Rate [Anterior Bilateral Throughout] Blood Pressure O2 Sat by Pulse 94 96 Oximetry 11/08/18 11/08/18 14:39 16:29 Temperature 98.3 F Pulse Rate 72 Pulse Rate [ 78 Anterior Bilateral Throughout] Pulse Rate [ From Monitor] Respiratory 18 Rate Respiratory 20 Rate [Anterior Bilateral Throughout] Blood Pressure 147/74 O2 Sat by Pulse 93 Oximetry Constitutional: no acute distress, alert, other (Morbidley Obese.) Eyes: non-icteric ENT: oropharynx moist Neck: supple, no lymphadenopathy Ascultation: Bilateral: diminished breath sounds (At the bases.), other (Prolonged expiratory phase.) Cardiovascular: regular rate and rhythm Gastrointestinal: normoactive bowel sounds, soft, non-tender, other (Obese.) Integumentary: normal Extremities: no cyanosis, no edema Neurologic: normal mental status, non-focal exam, pupils equal and round, CN II- XII normal Psychiatric: mood appropriate CBC and BMP: 11/08/18 05:55 11/08/18 05:55 ABG, PT/INR, D-dimer: ABG POC ABG pH 7.333 (7.35-7.45) L 11/07/18 15:33 POC ABG pCO2 48.0 (35-45) H 11/07/18 15:33 POC ABG pO2 79 (80-105) L 11/07/18 15:33 POC ABG HCO3 25.5 (22-26 mml/L) 11/07/18 15:33 POC ABG Total CO2 27 (23-27mmol/L) 11/07/18 15:33 POC ABG O2 Sat 95 11/07/18 15:33 PT/INR, D-dimer 1905.84 ng/mlDDU (0-234) H 11/05/18 14:38 Abnormal lab findings: Abnormal Labs 11/05/18 11/05/18 11/05/18 02:30 02:30 02:51 WBC Hgb 14.5 H MCHC 36 H Seg Neuts % (Manual) Lymphocytes % (Manual) Seg Neutrophils # [place] D-Dimer POC ABG pH 7.322 L POC ABG pCO2 55.5 H POC ABG pO2 Sodium Potassium Chloride Carbon Dioxide 31 H BUN 6 L Glucose POC Glucose Calcium 11/05/18 11/05/18 11/05/18 10:05 11:02 11:54 WBC Hgb MCHC Seg Neuts % (Manual) Lymphocytes % (Manual) Seg Neutrophils # [place] D-Dimer POC ABG pH 7.137 L POC ABG pCO2 POC ABG pO2 Sodium Potassium Chloride Carbon Dioxide BUN Glucose POC Glucose 171 H 165 H Calcium 11/05/18 11/05/18 11/05/18 12:29 14:24 14:38 WBC Hgb MCHC Seg Neuts % (Manual) Lymphocytes % (Manual) Seg Neutrophils # [place] D-Dimer 1905.84 H POC ABG pH POC ABG pCO2 POC ABG pO2 75 L Sodium Potassium Chloride Carbon Dioxide BUN Glucose POC Glucose 212 H Calcium 11/05/18 11/06/18 11/06/18 21:15 04:07 04:07 WBC 12.4 H Hgb MCHC Seg Neuts % (Manual) 84.0 H Lymphocytes % (Manual) 10.0 L Seg Neutrophils # Man 10.4 H D-Dimer POC ABG pH POC ABG pCO2 POC ABG pO2 Sodium Potassium Chloride Carbon Dioxide BUN Glucose 190 H POC Glucose 212 H Calcium 11/06/18 11/06/18 11/06/18 04:21 07:36 07:42 WBC Hgb MCHC Seg Neuts % (Manual) Lymphocytes % (Manual) Seg Neutrophils # Man D-Dimer POC ABG pH POC ABG pCO2 POC ABG pO2 66 L Sodium Potassium Chloride Carbon Dioxide BUN Glucose 198 H POC Glucose 197 H Calcium 11/06/18 11/06/18 11/06/18 09:25 11:47 15:22 WBC Hgb MCHC Seg Neuts % (Manual) Lymphocytes % (Manual) Seg Neutrophils # Man D-Dimer POC ABG pH POC ABG pCO2 POC ABG pO2 Sodium Potassium Chloride Carbon Dioxide BUN Glucose POC Glucose 190 H 188 H 190 H Calcium 11/06/18 11/07/18 11/07/18 23:05 05:51 13:06 WBC Hgb MCHC Seg Neuts % (Manual) Lymphocytes % (Manual) Seg Neutrophils # Man D-Dimer POC ABG pH POC ABG pCO2 POC ABG pO2 Sodium Potassium Chloride Carbon Dioxide BUN Glucose POC Glucose 287 H 228 H 260 H Calcium 11/07/18 11/08/18 11/08/18 15:33 01:10 05:51 WBC Hgb MCHC Seg Neuts % (Manual) Lymphocytes % (Manual) Seg Neutrophils # Man D-Dimer POC ABG pH 7.333 L POC ABG pCO2 48.0 H POC ABG pO2 79 L Sodium Potassium Chloride Carbon Dioxide BUN Glucose POC Glucose 368 H 280 H Calcium 11/08/18 11/08/18 11/08/18 05:55 05:55 11:30 WBC 13.1 H Hgb MCHC Seg Neuts % (Manual) Lymphocytes % (Manual) Seg Neutrophils # Man D-Dimer POC ABG pH POC ABG pCO2 POC ABG pO2 Sodium 136 L Potassium 5.1 H Chloride 97.8 L Carbon Dioxide BUN 20 H Glucose 260 H POC Glucose 280 H Calcium 10.3 H 11/08/18 16:37 WBC Hgb MCHC Seg Neuts % (Manual) Lymphocytes % (Manual) Seg Neutrophils # Man D-Dimer POC ABG pH POC ABG pCO2 POC ABG pO2 Sodium Potassium Chloride Carbon Dioxide BUN Glucose POC Glucose 346 H Calcium
[2018-11-08] MEDS ORDERED: LOVENOX SUB-Q ONE (18:01)
[2018-11-08] MEDS ORDERED: ATIVAN IV NR (18:15)
--- NOTE | 2018-11-08 19:43 | Cat Scan Report ---
PROCEDURE: CT ANGIO CHEST TECHNIQUE: Computerized tomographic angiography of the chest was performed after the IV injection of iodinated nonionic contrast including image processing. The image data was postprocessed using 2-di mensional multiplanar reformatted (MPR) and 3-dimensional (MIP and/or volume rendered) techniques. Au tomated exposure control, adjustment of mA and/or kV according to patient size, or iterative reconstr uction dose optimization techniques were utilized. CT DOSE LENGTH PRODUCT: 886.3 mGycm HISTORY: shortness of breath COMPARISONS: CT chest 05/01/18 . FINDINGS: Heart and pericardium: Normal. Thoracic aorta: Normal. Pulmonary vasculature: Normal. No evidence for pulmonary embolism is seen. Lymph nodes: No enlarged thoracic lymph nodes. Lungs: Linear bibasilar atelectasis is noted posteriorly. There is also linear atelectasis in the ri ght middle lobe. Pleural space: No effusion, thickening, or pneumothorax. Musculoskeletal structures: There are recent acute rib fractures involving the anterior right third through fifth ribs.. Severe degenerative disc changes throughout the thoracic spine are noted. Upper abdominal structures: No significant abnormality. IMPRESSION: 1. No evidence for pulmonary embolism 2. Atelectasis in both lower lobes and the right middle lobe 3. Recent acute rib fractures involving the anterior right third through fifth ribs. This document is electronically signed by Lurdes Hernandez MD., November 08 2018 07:41:54 PM ET
[2018-11-08] MEDS: SODIUM CHLORIDE FLUSH SYRINGE 10 ML IV PRN (21:50)
[2018-11-09] MEDS: TYLENOL PO PRN (00:24)
[2018-11-09] MEDS: HYDROMET PO PRN ×2 (00:25→06:17)
[2018-11-09] MEDS: HumaLOG SUB-Q SCH ×4 (00:31→18:29)
[2018-11-09] MEDS: DUONEB *Not for PRN Use IH SCH ×4 (01:40→19:53)
[2018-11-09] MEDS: PERCOCET 5/325 PO PRN ×4 (06:17→20:21)
[2018-11-09] MEDS: SOLU-Medrol IV SCH ×3 (06:18→21:39)
[2018-11-09] MEDS: MAXIPIME/NS 2 GM/100 ML 2 GM/100 ML BAG IV SCH ×3 (06:35→21:40)
[2018-11-09] MEDS: PULMICORT IH SCH ×2 (09:11→19:53)
[2018-11-09] MEDS: BROVANA NEBU IH SCH ×2 (09:11→19:53)
[2018-11-09] MEDS: PEPCID PO SCH (10:08)
[2018-11-09] MEDS: ATIVAN PO SCH ×2 (10:08→21:39)
[2018-11-09] MEDS: ZESTRIL PO SCH (10:08)
[2018-11-09] MEDS: LEXAPRO PO SCH (10:08)
[2018-11-09] MEDS: CLARITIN PO SCH (10:08)
[2018-11-09] MEDS: LOVENOX SUB-Q SCH (10:11)
[2018-11-09] MEDS: SODIUM CHLORIDE FLUSH SYRINGE 10 ML IV SCH ×2 (10:11→22:00)
--- NOTE | 2018-11-09 13:00 | Progress Note ---
Assessment and Plan Assessment and plan: Patient is a 53 yo woman with a history of hypertension, IDDM, chronic hypoxic respiratory failure on 2 liters of home O2 due to end stage COPD, CHF, bipolar, schizophrenia, chronic pain syndrome who presented to [facility] ED on 11/05/18 with SOB. She desaturated down to 50% and became asytolic, Code Blue was called on 11/05/18. She was successfully rescusicatated, intubated and transferred to the ICU. She was subsequently extubated on 11/06/18 and transferred out of the ICU. * CTA chest IMPRESSION: 1. No evidence for pulmonary embolism 2. Atelectasis in both lower lobes and the right middle lobe 3. Recent acute rib fractures involving the anterior right third through fifth ribs. Acute on chronic hypoxic respiratory failure due to AE COPD s/p MV: continue treatment for COPD, Pulm is following s/p Cardiopulmonary arrest most likely due to hypoxemia AE-COPD: iv steroids, neb, abx Hypertension: low salt diet, antihypertensives Mild hyperkalemai: repeat in am BMI 52.8: weight loss counselor on lifestyle modifications Type 2 Diabetes mellitus uncontrolled hyperglycemia: ada, ssi, Bipolar disorder and Schizophrenia: consult Mental health Chronic pain: adjusted pain medications Bilateral atelectasis: ordered Incentive spirometry Acute rib fracture, most likely due to chest compressions: pain control. DVT ppx sq lovenox History Interval history: Patient was seen and examined. Follow-up on current diagnosis of COPD. No overnight events reported to me. Patient denies any chest pain, shortness breath, nausea/vomiting or severe headaches. Imaging, nursing note, chart, labs and old chart reviewed. Discussed with patient. Hospitalist Physical - Physical exam Narrative exam: Gen: WDWN, bmi 52.8, NAD, Awake, Alert, Orientated HEENT: NCAT, EOMI, PERRL, OP Clear Neck: supple, no adenopathy, no thyromegaly, no JVD CVS/Heart: RRR, normal S1S2, pulses present bilaterally Chest/Lungs: diminished Symmetrical chest expansion, good air entry bilaterally GI/Abdomen: soft, NTND, good bowel sounds, no guarding or rebound /Bladder: no suprapubic tenderness, no CVA or paraspinal tenderness Extermity/Skin: no c/c/e, no obvious rash MSK: FROM x 4 Neuro: CN 2-12 grossly intact, no new focal deficits Psych: anxiety - Constitutional Vitals: Temp Pulse Resp BP Pulse Ox 97.7 F 67 21 160/78 93 11/09/18 08:09 11/09/18 12:02 11/09/18 12:02 11/09/18 12:02 11/09/18 12:02 General appearance: Present: severe distress, well-nourished Results - Labs CBC & Chem 7: 11/08/18 05:55 11/08/18 05:55 Labs: Laboratory Last Values WBC 13.1 K/mm3 (4.5-11.0) H 11/08/18 05:55 RBC 4.65 M/mm3 (3.65-5.03) 11/08/18 05:55 Hgb 13.6 gm/dl (10.1-14.3) 11/08/18 05:55 Hct 41.5 % (30.3-42.9) 11/08/18 05:55 MCV 89 fl (79-97) 11/08/18 05:55 MCH 29 pg (28-32) 11/08/18 05:55 MCHC 33 % (30-34) 11/08/18 05:55 RDW 14.9 % (13.2-15.2) 11/08/18 05:55 Plt Count 254 K/mm3 (140-440) 11/08/18 05:55 Lymph % (Auto) 25.3 % (13.4-35.0) 11/05/18 02:30 [place] % (Auto) 6.4 % (0.0-7.3) 11/05/18 02:30 Eos % (Auto) 3.9 % (0.0-4.3) 11/05/18 02:30 Baso % (Auto) 0.6 % (0.0-1.8) 11/05/18 02:30 Lymph # 2.2 K/mm3 (1.2-5.4) 11/05/18 02:30 [place] # 0.6 K/mm3 (0.0-0.8) 11/05/18 02:30 Eos # 0.3 K/mm3 (0.0-0.4) 11/05/18 02:30 Baso # 0.1 K/mm3 (0.0-0.1) 11/05/18 02:30 Add Manual Diff Complete 11/06/18 04:07 Total Counted 100 11/06/18 04:07 Seg Neutrophils % Online Education Manager 11/06/18 04:07 Seg Neuts % (Manual) 84.0 % (40.0-70.0) H 11/06/18 04:07 5.0 % 11/06/18 04:07 10.0 % (13.4-35.0) L 11/06/18 04:07 Reactive Lymphs % (Man) 0 % 11/06/18 04:07 1.0 % (0.0-7.3) 11/06/18 04:07 0 % (0.0-4.3) 11/06/18 04:07 0 % (0.0-1.8) 11/06/18 04:07 0 % 11/06/18 04:07 0 % 11/06/18 04:07 0 % 11/06/18 04:07 0 % 11/06/18 04:07 Nucleated RBC % Not Reportable 11/06/18 04:07 Seg Neutrophils # 5.7 K/mm3 (1.8-7.7) 11/05/18 02:30 Seg Neutrophils # Man 10.4 K/mm3 (1.8-7.7) H 11/06/18 04:07 Band Neutrophils # 0.6 K/mm3 11/06/18 04:07 1.2 K/mm3 (1.2-5.4) 11/06/18 04:07 Abs React Lymphs (Man) 0.0 K/mm3 11/06/18 04:07 0.1 K/mm3 (0.0-0.8) 11/06/18 04:07 0.0 K/mm3 (0.0-0.4) 11/06/18 04:07 0.0 K/mm3 (0.0-0.1) 11/06/18 04:07 0.0 K/mm3 11/06/18 04:07 0.0 K/mm3 11/06/18 04:07 0.0 K/mm3 11/06/18 04:07 Blast Cells # 0.0 K/mm3 11/06/18 04:07 WBC Morphology Not Reportable 11/06/18 04:07 Hypersegmented Neuts Not Reportable 11/06/18 04:07 Hyposegmented Neuts Not Reportable 11/06/18 04:07 Hypogranular Neuts Not Reportable 11/06/18 04:07 Not Reportable 11/06/18 04:07 Not Reportable 11/06/18 04:07 Not Reportable 11/06/18 04:07 Not Reportable 11/06/18 04:07 Not Reportable 11/06/18 04:07 Not Reportable 11/06/18 04:07 Consistent w auto 11/06/18 04:07 Not Reportable 11/06/18 04:07 Plt Clumps, EDTA Not Reportable 11/06/18 04:07 Not Reportable 11/06/18 04:07 Not Reportable 11/06/18 04:07 Not Reportable 11/06/18 04:07 Plt Morphology Comment Not Reportable 11/06/18 04:07 RBC Morphology Not Reportable 11/06/18 04:07 Dimorphic RBCs Not Reportable 11/06/18 04:07 Not Reportable 11/06/18 04:07 Not Reportable 11/06/18 04:07 Not Reportable 11/06/18 04:07 1+ 11/06/18 04:07 Not Reportable 11/06/18 04:07 Not Reportable 11/06/18 04:07 Not Reportable 11/06/18 04:07 Not Reportable 11/06/18 04:07 Not Reportable 11/06/18 04:07 Not Reportable 11/06/18 04:07 Not Reportable 11/06/18 04:07 Not Reportable 11/06/18 04:07 Not Reportable 11/06/18 04:07 Not Reportable 11/06/18 04:07 Not Reportable 11/06/18 04:07 Not Reportable 11/06/18 04:07 Not Reportable 11/06/18 04:07 Not Reportable 11/06/18 04:07 Not Reportable 11/06/18 04:07 Acanthocytes (Spur) Not Reportable 11/06/18 04:07 Rouleaux Not Reportable 11/06/18 04:07 Not Reportable 11/06/18 04:07 Not Reportable 11/06/18 04:07 Not Reportable 11/06/18 04:07 Not Reportable 11/06/18 04:07 Hem Pathologist Commnt No 11/06/18 04:07 1905.84 ng/mlDDU (0-234) H 11/05/18 14:38 POC ABG pH 7.333 (7.35-7.45) L 11/07/18 15:33 POC ABG pCO2 48.0 (35-45) H 11/07/18 15:33 POC ABG pO2 79 (80-105) L 11/07/18 15:33 POC ABG HCO3 25.5 (22-26 mml/L) 11/07/18 15:33 POC ABG Total CO2 27 (23-27mmol/L) 11/07/18 15:33 POC ABG O2 Sat 95 11/07/18 15:33 POC ABG Base Excess 0 ((-2) - (+3)mmol/L) 11/07/18 15:33 32 % 11/07/18 15:33 Sodium 136 mmol/L (137-145) L 11/08/18 05:55 Potassium 5.1 mmol/L (3.6-5.0) H 11/08/18 05:55 Chloride 97.8 mmol/L (98-107) L 11/08/18 05:55 Carbon Dioxide 27 mmol/L (22-30) 11/08/18 05:55 16 mmol/L 11/08/18 05:55 BUN 20 mg/dL (7-17) H 11/08/18 05:55 0.7 mg/dL (0.7-1.2) 11/08/18 05:55 Estimated GFR > 60 ml/min 11/08/18 05:55 29 % 11/08/18 05:55 Glucose 260 mg/dL (65-100) H 11/08/18 05:55 POC Glucose 333 (70-105) H 11/09/18 12:39 Calcium 10.3 mg/dL (8.4-10.2) H 11/08/18 05:55 Active Medications - Current Medications Current Medications: Generic Name Dose Route Start Last Admin Trade Name Freq PRN Reason Stop Dose Admin Acetaminophen 650 mg 11/05/18 04:15 11/09/18 00:24 Tylenol PO 650 mg Q4H PRN Administration Pain MILD(1-3)/Fever >100.5/KHAN Albuterol/Ipratropium 1 ampul 11/05/18 08:00 11/09/18 09:11 Duoneb *Not For Prn Use* IH 1 ampul Q6HRT VIC Administration Lipase/Protease/Amylase 1 each 11/05/18 17:25 Coreen Shaffer 10,500 Unit FEEDTUBE PRN PRN For Clogged Feeding Tube Arformoterol Tartrate 15 mcg 11/05/18 12:45 11/09/18 09:11 Brovana Nebu IH 15 mcg Q12HRT VIC Administration Budesonide 0.5 mg 11/05/18 20:00 11/09/18 09:11 Pulmicort IH 0.5 mg Q12HRT VIC Administration Dextrose 50 ml 11/05/18 04:15 D50w (25gm) Syringe IV PRN PRN Hypoglycemia Enoxaparin Sodium 40 mg 11/05/18 10:00 11/09/18 10:11 Lovenox SUB-Q 40 mg QDAY@1000 VIC Administration Escitalopram Oxalate 20 mg 11/06/18 10:00 11/09/18 10:08 Lexapro PO 20 mg QDAY VIC Administration Famotidine 20 mg 11/06/18 10:00 11/09/18 10:08 Pepcid PO 20 mg QDAY VIC Administration Hydrocodone Bit/Homatropine Methylb 10 ml 11/07/18 15:02 11/09/18 06:17 Hydromet PO 10 ml Q6H PRN Administration Cough Hydrophilic Ointment 1 applic 11/05/18 11:39 Vaseline Lip Therapy TP Q2HR PRN Dry Lips Cefepime HCl 2 gm in 100 mls @ 200 mls/hr 11/06/18 07:00 11/09/18 06:35 Maxipime/Ns 2 Gm/100 Ml IV 200 mls/hr Q8HR VIC Administration Protocol Insulin Human Lispro 0 unit 11/06/18 07:00 11/09/18 06:34 Humalog SUB-Q 10 unit Q6HR VIC Administration Protocol Lisinopril 20 mg 11/06/18 10:00 11/09/18 10:08 Zestril PO 20 mg DAILY VIC Administration Loratadine 10 mg 11/06/18 10:00 11/09/18 10:08 Claritin PO 10 mg QDAY VIC Administration Lorazepam 1 mg 11/06/18 10:00 11/09/18 10:08 Ativan PO 1 mg Q12HR VIC Administration Lorazepam 2 mg 11/08/18 18:15 11/08/18 18:32 Ativan IV 11/09/18 18:22 2 mg FIELD SALES MANAGER NR Administration Methylprednisolone Sodium Succinate 80 mg 11/07/18 18:30 11/09/18 06:18 Solu-Medrol IV 80 mg Q8HR VIC Administration Multi-Ingred Cream/Lotion/Oil/Oint 1 applic 11/05/18 11:39 Artificial Tears Ophth Oint OU Q4HR PRN Dry Eye(s) Ondansetron HCl 4 mg 11/05/18 04:15 Zofran IV Q8H PRN Nausea And Vomiting Oxycodone/Acetaminophen 1 tab 11/09/18 10:40 11/09/18 11:18 Percocet 5/325 PO 1 tab Q4H PRN Administration Pain, Moderate (4-6) Simple Syrup 15 ml 11/05/18 17:25 Simple Syrup FEEDTUBE PRN PRN Hypoglycemia Simple Syrup 30 ml 11/05/18 17:25 Simple Syrup FEEDTUBE PRN PRN Hypoglycemia Sodium Bicarbonate 325 mg 11/05/18 17:25 Sodium Bicarbonate FEEDTUBE PRN PRN For Clogged Feeding Tube Sodium Chloride 10 ml 11/05/18 10:00 11/09/18 10:11 Sodium Chloride Flush Syringe 10 Ml IV 10 ml BID VIC Administration Sodium Chloride 10 ml 11/05/18 04:15 11/08/18 21:50 Sodium Chloride Flush Syringe 10 Ml IV 10 ml PRN PRN Administration LINE FLUSH Nutrition/Malnutrition Assess - Dietary Evaluation Nutrition/Malnutrition Findings: Nutrition Notes Start: 11/05/18 17:14 Freq: Status: Active Protocol: Document 11/08/18 18:04 RM (Rec: 11/08/18 18:09 RM [email or web address]) Nutrition Notes Initial or Follow up Reassessment Current Diagnosis COPD,Diabetes,Hypertension, Heart Failure Other Pertinent Diagnosis Schizophrenia, Bipolar Current Diet Cardiac/Consistent CHO Labs/Tests Reviewed Pertinent Medications Reviewed Height 5 ft 3 in Weight 128.8 kg [place] Body Weight (kg) 52.27 BMI 50.3 Subjective/Other Information Pt stated that her appetite is good and that she eats all of her meals. Percent of energy/protein needs met: 100%/100% Burn Absent Trauma Absent #1 Nutrition Diagnosis Inadequate oral intake As Evidenced by Signs and Symptoms pt meeting 100% of calorie and 100% of protein needs Diagnosis Progress(for reassessment Resolved documentation) Is patient on ventilator? Yes Is Patient Ambulatory and/or Out of Bed No REE-([facility]-confined to bed) 2232.192 Kcal/Kg value to use for calculation 14 Approximate Energy Requirements Using 1803 kcal/Kg Calculation Used for Recommendations Kcal/kg Additional Notes Protein Needs: 73-91g (0.8-1g/ kg) 91 kg adjBW) Fluid Needs: 1 ml/kcal Nutrition Intervention Change Diet Order: Continue current Goal #1 Continue to meet at least 75% of calorie and protein needs via PO and ONS intakes Anticipated Discharge Needs: Cardiac/Consistent CHO Revisit per MD consult or patient Sign Off request:
--- NOTE | 2018-11-09 17:44 | Progress Note ---
Assessment and Plan Patient alert, awake. Resting on 4 litters O2. Says breathing better. O2 Sat 98%. No acute respiratory distress. Patient go on BiPAP during the night time. Patients CAT scan of chest reported recent right sided rib fractures. Complaining right sided chest pain. - Patient Problems (1) Acute exacerbation of chronic obstructive pulmonary disease (COPD) Current Visit: No Status: Acute Plan to address problem: O2 3 litres via nasal canula. BIPAP during night time and Prn for shortness of breath during day time. Continue solumedrol. Continue cepepine, Continue S/C Lovenox. Continue PEPCID. (2) Acute hypoxemic respiratory failure Current Visit: No Status: Acute Plan to address problem: O2 3 litres via nasal canula. BIPAP during night time and Prn for shortness of breath during day time. Continue solumedrol. Continue cepepine, Continue S/C Lovenox. Continue PEPCID (3) Morbid obesity with BMI of 50.0-59.9, adult Current Visit: No Status: Acute Plan to address problem: Diet and exercise. (4) Obesity hypoventilation syndrome Current Visit: No Status: Acute Plan to address problem: BIPAP during night time. BIPAP PRN during day time. (5) Bipolar 1 disorder Current Visit: Yes Status: Chronic Plan to address problem: Management as per psychiatry. (6) Schizophrenia Current Visit: Yes Status: Chronic Qualifiers: Schizophrenia type: unspecified Qualified Code(s): F20.9 - Schizophrenia, unspecified Plan to address problem: Management as per Psychiatry. (7) T2DM (type 2 diabetes mellitus) Current Visit: Yes Status: Chronic Qualifiers: Diabetes mellitus skilled nursing insulin use: unspecified skilled nursing insulin use status Plan to address problem: Management as per primary care. (8) HTN (hypertension) Current Visit: No Status: Chronic Qualifiers: Hypertension type: essential hypertension Qualified Code(s): I10 - Essential (primary) hypertension Plan to address problem: Management as per primary care. (9) Nicotine dependence Current Visit: No Status: Chronic Qualifiers: Nicotine product type: cigarettes Plan to address problem: Counselled to stop smoking. (10) Right rib fracture Current Visit: Yes Status: Acute Plan to address problem: Patient is on Percocet q 4 hours PRN for pain. Subjective Date of service: 11/09/18 Principal diagnosis: Acute resp failure and Copd exacerbation Interval history: Patient alert, awake. Resting on 4 litters O2. Says breathing better. O2 Sat 98%. No acute respiratory distress. Patient go on BiPAP during the night time. Patients CAT scan of chest reported recent right sided rib fractures. Complaining right sided chest pain. Objective Vital Signs - 12hr 11/09/18 11/09/18 11/09/18 08:09 09:10 09:11 Temperature 97.7 F Pulse Rate 66 Pulse Rate [ 81 Anterior Bilateral Throughout] Respiratory 12 Rate Respiratory 22 Rate [Anterior Bilateral Throughout] Blood Pressure 198/99 Blood Pressure [Left] O2 Sat by Pulse 94 98 Oximetry 11/09/18 11/09/18 11/09/18 09:39 10:08 12:02 Temperature Pulse Rate 67 Pulse Rate [ 87 Anterior Bilateral Throughout] Respiratory 21 Rate Respiratory 20 Rate [Anterior Bilateral Throughout] Blood Pressure 198/99 Blood Pressure 160/78 [Left] O2 Sat by Pulse 93 Oximetry 11/09/18 11/09/18 14:15 14:28 Temperature Pulse Rate Pulse Rate [ 80 67 Anterior Bilateral Throughout] Respiratory Rate Respiratory 20 20 Rate [Anterior Bilateral Throughout] Blood Pressure Blood Pressure [Left] O2 Sat by Pulse Oximetry Constitutional: no acute distress, alert, other ([place]bid[place] Obese.) Eyes: non-icteric ENT: oropharynx moist Neck: supple, no lymphadenopathy Ascultation: Bilateral: diminished breath sounds (At the bases.), other (Prolong ed expiratory phase.) Cardiovascular: regular rate and rhythm Gastrointestinal: normoactive bowel sounds, soft, non-tender, other (Obese.) Integumentary: normal Extremities: no cyanosis, no edema Neurologic: normal mental status, non-focal exam, pupils equal and round, CN II- XII normal Psychiatric: mood appropriate CBC and BMP: 11/08/18 05:55 11/08/18 05:55 ABG, PT/INR, D-dimer: ABG POC ABG pH 7.333 (7.35-7.45) L 11/07/18 15:33 POC ABG pCO2 48.0 (35-45) H 11/07/18 15:33 POC ABG pO2 79 (80-105) L 11/07/18 15:33 POC ABG HCO3 25.5 (22-26 mml/L) 11/07/18 15:33 POC ABG Total CO2 27 (23-27mmol/L) 11/07/18 15:33 POC ABG O2 Sat 95 11/07/18 15:33 PT/INR, D-dimer 1905.84 ng/mlDDU (0-234) H 11/05/18 14:38 Abnormal lab findings: Abnormal Labs 11/05/18 11/05/18 11/05/18 02:30 02:30 02:51 WBC Hgb 14.5 H MCHC 36 H Seg Neuts % (Manual) Lymphocytes % (Manual) Seg Neutrophils # Man D-Dimer POC ABG pH 7.322 L POC ABG pCO2 55.5 H POC ABG pO2 Sodium Potassium Chloride Carbon Dioxide 31 H BUN 6 L Glucose POC Glucose Calcium 11/05/18 11/05/18 11/05/18 10:05 11:02 11:54 WBC Hgb MCHC Seg Neuts % (Manual) Lymphocytes % (Manual) Seg Neutrophils # Man D-Dimer POC ABG pH 7.137 L POC ABG pCO2 POC ABG pO2 Sodium Potassium Chloride Carbon Dioxide BUN Glucose POC Glucose 171 H 165 H Calcium 11/05/18 11/05/18 11/05/18 12:29 14:24 14:38 WBC Hgb MCHC Seg Neuts % (Manual) Lymphocytes % (Manual) Seg Neutrophils # Man D-Dimer 1905.84 H POC ABG pH POC ABG pCO2 POC ABG pO2 75 L Sodium Potassium Chloride Carbon Dioxide BUN Glucose POC Glucose 212 H Calcium 11/05/18 11/06/18 11/06/18 21:15 04:07 04:07 WBC 12.4 H Hgb MCHC Seg Neuts % (Manual) 84.0 H Lymphocytes % (Manual) 10.0 L Seg Neutrophils # Man 10.4 H D-Dimer POC ABG pH POC ABG pCO2 POC ABG pO2 Sodium Potassium Chloride Carbon Dioxide BUN Glucose 190 H POC Glucose 212 H Calcium 11/06/18 11/06/18 11/06/18 04:21 07:36 07:42 WBC Hgb MCHC Seg Neuts % (Manual) Lymphocytes % (Manual) Seg Neutrophils # Man D-Dimer POC ABG pH POC ABG pCO2 POC ABG pO2 66 L Sodium Potassium Chloride Carbon Dioxide BUN Glucose 198 H POC Glucose 197 H Calcium 11/06/18 11/06/18 11/06/18 09:25 11:47 15:22 WBC Hgb MCHC Seg Neuts % (Manual) Lymphocytes % (Manual) Seg Neutrophils # [place] D-Dimer POC ABG pH POC ABG pCO2 POC ABG pO2 Sodium Potassium Chloride Carbon Dioxide BUN Glucose POC Glucose 190 H 188 H 190 H Calcium 11/06/18 11/07/18 11/07/18 23:05 05:51 13:06 WBC Hgb MCHC Seg Neuts % (Manual) Lymphocytes % (Manual) Seg Neutrophils # [place] D-Dimer POC ABG pH POC ABG pCO2 POC ABG pO2 Sodium Potassium Chloride Carbon Dioxide BUN Glucose POC Glucose 287 H 228 H 260 H Calcium 11/07/18 11/08/18 11/08/18 15:33 01:10 05:51 WBC Hgb MCHC Seg Neuts % (Manual) Lymphocytes % (Manual) Seg Neutrophils # [place] D-Dimer POC ABG pH 7.333 L POC ABG pCO2 48.0 H POC ABG pO2 79 L Sodium Potassium Chloride Carbon Dioxide BUN Glucose POC Glucose 368 H 280 H Calcium 11/08/18 11/08/18 11/08/18 05:55 05:55 11:30 WBC 13.1 H Hgb MCHC Seg Neuts % (Manual) Lymphocytes % (Manual) Seg Neutrophils # [place] D-Dimer POC ABG pH POC ABG pCO2 POC ABG pO2 Sodium 136 L Potassium 5.1 H Chloride 97.8 L Carbon Dioxide BUN 20 H Glucose 260 H POC Glucose 280 H Calcium 10.3 H 11/08/18 11/09/18 11/09/18 16:37 00:32 06:34 WBC Hgb MCHC Seg Neuts % (Manual) Lymphocytes % (Manual) Seg Neutrophils # [place] D-Dimer POC ABG pH POC ABG pCO2 POC ABG pO2 Sodium Potassium Chloride Carbon Dioxide BUN Glucose POC Glucose 346 H 359 H 342 H Calcium 11/09/18 12:39 WBC Hgb MCHC Seg Neuts % (Manual) Lymphocytes % (Manual) Seg Neutrophils # [place] D-Dimer POC ABG pH POC ABG pCO2 POC ABG pO2 Sodium Potassium Chloride Carbon Dioxide BUN Glucose POC Glucose [address] scan - chest: report reviewed, image reviewed Additional Studies: ANGIO CT of the Chest done on 11/08/18 IMPRESSION: 1. No evidence for pulmonary embolism 2. Atelectasis in both lower lobes and the right middle lobe 3. Recent acute rib fractures involving the anterior right third through fifth ribs.
[2018-11-10] MEDS: HumaLOG SUB-Q SCH ×5 (00:45→23:56)
[2018-11-10] MEDS: PERCOCET 5/325 PO PRN ×6 (01:07→22:31)
[2018-11-10] MEDS: DUONEB *Not for PRN Use IH SCH ×4 (03:12→19:17)
[2018-11-10] MEDS: SOLU-Medrol IV SCH ×3 (05:47→22:30)
[2018-11-10] MEDS: MAXIPIME/NS 2 GM/100 ML 2 GM/100 ML BAG IV SCH ×3 (05:48→22:30)
[2018-11-10 06:37] LABS: Hematocrit 40.6 % (30.3-42.9); Hemoglobin 13.6 gm/dl (10.1-14.3); Mean Corpuscular HGB Conc 33 % (30-34); Mean Corpuscular Volume 88 fl (79-97); Platelet Count 223 K/mm3 (140-440); Red Blood Count 4.61 M/mm3 (3.65-5.03); Red Cell Distribution Width 14.4 % (13.2-15.2)
[2018-11-10 06:50] LABS: BUN/Creatinine Ratio 30; Blood Urea Nitrogen 21 mg/dL (7-17); Calcium 9.8 mg/dL (8.4-10.2); Hemolysis Index 8
[2018-11-10] MEDS: BROVANA NEBU IH SCH ×2 (08:08→19:17)
[2018-11-10] MEDS: PULMICORT IH SCH ×2 (08:08→19:17)
[2018-11-10] MEDS: HYDROMET PO PRN ×3 (09:10→23:57)
[2018-11-10] MEDS: CLARITIN PO SCH (09:11)
[2018-11-10] MEDS: LEXAPRO PO SCH (09:11)
[2018-11-10] MEDS: ATIVAN PO SCH ×2 (09:11→22:30)
[2018-11-10] MEDS: PEPCID PO SCH (09:11)
[2018-11-10] MEDS: ZESTRIL PO SCH (09:11)
[2018-11-10] MEDS: SODIUM CHLORIDE FLUSH SYRINGE 10 ML IV SCH ×2 (09:12→22:30)
[2018-11-10] MEDS: LOVENOX SUB-Q SCH (09:12)
--- NOTE | 2018-11-10 13:31 | Progress Note ---
Assessment and Plan Assessment and plan: Patient is a 53 yo woman with a history of hypertension, IDDM, chronic hypoxic respiratory failure on 2 liters of home O2 due to end stage COPD, CHF, bipolar, schizophrenia, chronic pain syndrome who presented to [facility] ED on 11/05/18 with SOB. She desaturated down to 50% and became asytolic, Code Blue was called on 11/05/18. She was successfully rescusicatated, intubated and transferred to the ICU. She was subsequently extubated on 11/06/18 and transferred out of the ICU. * CTA chest IMPRESSION: 1. No evidence for pulmonary embolism 2. Atelectasis in both lower lobes and the right middle lobe 3. Recent acute rib fractures involving the anterior right third through fifth ribs. Acute on chronic hypoxic respiratory failure due to AE COPD s/p MV: continue treatment for COPD, Pulm is following s/p Cardiopulmonary arrest most likely due to hypoxemia AE-COPD: iv steroids, neb, abx Hypertension: low salt diet, antihypertensives Mild hyperkalemia, resolved: repeat in am Morbid Obesity BMI 52.8: relationship counselor on lifestyle modifications Type 2 Diabetes mellitus uncontrolled hyperglycemia: ada, ssi, Bipolar disorder and Schizophrenia: consult Mental health Chronic pain: adjusted pain medications Bilateral atelectasis: ordered Incentive spirometry Acute rib fracture, most likely due to chest compressions: pain control. DVT ppx sq lovenox Disposition: continue inpatient care, O2 down to 2.5L, hopefully will be down to baseline of 2L and she can be discharge tomorrow. History Interval history: Patient was seen and examined. Follow-up on current diagnosis of COPD. No overnight events reported to me. Patient denies any chest pain, shortness breath, nausea/vomiting or severe headaches. Imaging, nursing note, chart, labs and old chart reviewed. Discussed with patient. Hospitalist Physical - Physical exam Narrative exam: Gen: WDWN, bmi 52.8, NAD, Awake, Alert, Orientated HEENT: NCAT, EOMI, PERRL, OP Clear Neck: supple, no adenopathy, no thyromegaly, no JVD CVS/Heart: RRR, normal S1S2, pulses present bilaterally Chest/Lungs: diminished Symmetrical chest expansion, good air entry bilaterally GI/Abdomen: soft, NTND, good bowel sounds, no guarding or rebound /Bladder: no suprapubic tenderness, no CVA or paraspinal tenderness Extermity/Skin: no c/c/e, no obvious rash MSK: FROM x 4 Neuro: CN 2-12 grossly intact, no new focal deficits Psych: anxiety - Constitutional Vitals: Temp Pulse Resp BP Pulse Ox 97.5 F L 63 16 154/86 92 11/10/18 12:09 11/10/18 12:45 11/10/18 12:09 11/10/18 12:09 11/10/18 12:09 General appearance: Present: well-nourished. Absent: severe distress Results - Labs CBC & Chem 7: 11/10/18 04:27 11/10/18 04:27 Labs: Laboratory Last Values WBC 10.6 K/mm3 (4.5-11.0) 11/10/18 04:27 RBC 4.61 M/mm3 (3.65-5.03) 11/10/18 04:27 Hgb 13.6 gm/dl (10.1-14.3) 11/10/18 04:27 Hct 40.6 % (30.3-42.9) 11/10/18 04:27 MCV 88 fl (79-97) 11/10/18 04:27 MCH 30 pg (28-32) 11/10/18 04:27 MCHC 33 % (30-34) 11/10/18 04:27 RDW 14.4 % (13.2-15.2) 11/10/18 04:27 Plt Count 223 K/mm3 (140-440) 11/10/18 04:27 Lymph % (Auto) 25.3 % (13.4-35.0) 11/05/18 02:30 [place] % (Auto) 6.4 % (0.0-7.3) 11/05/18 02:30 Eos % (Auto) 3.9 % (0.0-4.3) 11/05/18 02:30 Baso % (Auto) 0.6 % (0.0-1.8) 11/05/18 02:30 Lymph # 2.2 K/mm3 (1.2-5.4) 11/05/18 02:30 [place] # 0.6 K/mm3 (0.0-0.8) 11/05/18 02:30 Eos # 0.3 K/mm3 (0.0-0.4) 11/05/18 02:30 Baso # 0.1 K/mm3 (0.0-0.1) 11/05/18 02:30 Add Manual Diff Complete 11/06/18 04:07 Total Counted 100 11/06/18 04:07 Seg Neutrophils % [place] 11/06/18 04:07 Seg Neuts % (Manual) 84.0 % (40.0-70.0) H 11/06/18 04:07 5.0 % 11/06/18 04:07 10.0 % (13.4-35.0) L 11/06/18 04:07 Reactive Lymphs % (Man) 0 % 11/06/18 04:07 1.0 % (0.0-7.3) 11/06/18 04:07 0 % (0.0-4.3) 11/06/18 04:07 0 % (0.0-1.8) 11/06/18 04:07 0 % 11/06/18 04:07 0 % 11/06/18 04:07 0 % 11/06/18 04:07 0 % 11/06/18 04:07 Nucleated RBC % Not Reportable 11/06/18 04:07 Seg Neutrophils # 5.7 K/mm3 (1.8-7.7) 11/05/18 02:30 Seg Neutrophils # Man 10.4 K/mm3 (1.8-7.7) H 11/06/18 04:07 Band Neutrophils # 0.6 K/mm3 11/06/18 04:07 1.2 K/mm3 (1.2-5.4) 11/06/18 04:07 Abs React Lymphs (Man) 0.0 K/mm3 11/06/18 04:07 0.1 K/mm3 (0.0-0.8) 11/06/18 04:07 0.0 K/mm3 (0.0-0.4) 11/06/18 04:07 0.0 K/mm3 (0.0-0.1) 11/06/18 04:07 0.0 K/mm3 11/06/18 04:07 0.0 K/mm3 11/06/18 04:07 0.0 K/mm3 11/06/18 04:07 Blast Cells # 0.0 K/mm3 11/06/18 04:07 WBC Morphology Not Reportable 11/06/18 04:07 Hypersegmented Neuts Not Reportable 11/06/18 04:07 Hyposegmented Neuts Not Reportable 11/06/18 04:07 Hypogranular Neuts Not Reportable 11/06/18 04:07 Not Reportable 11/06/18 04:07 Not Reportable 11/06/18 04:07 Not Reportable 11/06/18 04:07 Not Reportable 11/06/18 04:07 Not Reportable 11/06/18 04:07 Not Reportable 11/06/18 04:07 Consistent w auto 11/06/18 04:07 Not Reportable 11/06/18 04:07 Plt Clumps, EDTA Not Reportable 11/06/18 04:07 Not Reportable 11/06/18 04:07 Not Reportable 11/06/18 04:07 Not Reportable 11/06/18 04:07 Plt Morphology Comment Not Reportable 11/06/18 04:07 RBC Morphology Not Reportable 11/06/18 04:07 Dimorphic RBCs Not Reportable 11/06/18 04:07 Not Reportable 11/06/18 04:07 Not Reportable 11/06/18 04:07 Not Reportable 11/06/18 04:07 1+ 11/06/18 04:07 Not Reportable 11/06/18 04:07 Not Reportable 11/06/18 04:07 Not Reportable 11/06/18 04:07 Not Reportable 11/06/18 04:07 Not Reportable 11/06/18 04:07 Not Reportable 11/06/18 04:07 Not Reportable 11/06/18 04:07 Not Reportable 11/06/18 04:07 Not Reportable 11/06/18 04:07 Not Reportable 11/06/18 04:07 Not Reportable 11/06/18 04:07 Not Reportable 11/06/18 04:07 Not Reportable 11/06/18 04:07 Not Reportable 11/06/18 04:07 Not Reportable 11/06/18 04:07 Acanthocytes (Spur) Not Reportable 11/06/18 04:07 [place]leaux Not Reportable 11/06/18 04:07 Not Reportable 11/06/18 04:07 Not Reportable 11/06/18 04:07 Not Reportable 11/06/18 04:07 Not Reportable 11/06/18 04:07 Hem Pathologist Commnt No 11/06/18 04:07 1905.84 ng/mlDDU (0-234) H 11/05/18 14:38 POC ABG pH 7.333 (7.35-7.45) L 11/07/18 15:33 POC ABG pCO2 48.0 (35-45) H 11/07/18 15:33 POC ABG pO2 79 (80-105) L 11/07/18 15:33 POC ABG HCO3 25.5 (22-26 mml/L) 11/07/18 15:33 POC ABG Total CO2 27 (23-27mmol/L) 11/07/18 15:33 POC ABG O2 Sat 95 11/07/18 15:33 POC ABG Base Excess 0 ((-2) - (+3)mmol/L) 11/07/18 15:33 32 % 11/07/18 15:33 Sodium 136 mmol/L (137-145) L 11/10/18 04:27 Potassium 4.8 mmol/L (3.6-5.0) 11/10/18 04:27 Chloride 94.8 mmol/L (98-107) L 11/10/18 04:27 Carbon Dioxide 30 mmol/L (22-30) 11/10/18 04:27 16 mmol/L 11/10/18 04:27 BUN 21 mg/dL (7-17) H 11/10/18 04:27 0.7 mg/dL (0.7-1.2) 11/10/18 04:27 Estimated GFR > 60 ml/min 11/10/18 04:27 30 % 11/10/18 04:27 Glucose 322 mg/dL (65-100) H 11/10/18 04:27 POC Glucose 347 (70-105) H 11/10/18 12:17 Calcium 9.8 mg/dL (8.4-10.2) 11/10/18 04:27 Active Medications - Current Medications Current Medications: Generic Name Dose Route Start Last Admin Trade Name Freq PRN Reason Stop Dose Admin Acetaminophen 650 mg 11/05/18 04:15 11/09/18 00:24 Tylenol PO 650 mg Q4H PRN Administration Pain MILD(1-3)/Fever >100.5/KHAN Albuterol/Ipratropium 1 ampul 11/05/18 08:00 11/10/18 08:08 Duoneb *Not For Prn Use* IH 1 ampul Q6HRT VIC Administration Lipase/Protease/Amylase 1 each 11/05/18 17:25 Coreen Shaffer 10,500 Unit FEEDTUBE PRN PRN For Clogged Feeding Tube Arformoterol Tartrate 15 mcg 11/05/18 12:45 11/10/18 08:08 Brovana Nebu IH 15 mcg Q12HRT VIC Administration Budesonide 0.5 mg 11/05/18 20:00 11/10/18 08:08 Pulmicort IH 0.5 mg Q12HRT VIC Administration Dextrose 50 ml 11/05/18 04:15 D50w (25gm) Syringe IV PRN PRN Hypoglycemia Enoxaparin Sodium 40 mg 11/05/18 10:00 11/10/18 09:12 Lovenox SUB-Q 40 mg QDAY@1000 VIC Administration Escitalopram Oxalate 20 mg 11/06/18 10:00 11/10/18 09:11 Lexapro PO 20 mg QDAY VIC Administration Famotidine 20 mg 11/06/18 10:00 11/10/18 09:11 Pepcid PO 20 mg QDAY VIC Administration Hydrocodone Bit/Homatropine Methylb 10 ml 11/07/18 15:02 11/10/18 09:10 Hydromet PO 10 ml Q6H PRN Administration Cough Hydrophilic Ointment 1 applic 11/05/18 11:39 Vaseline Lip Therapy TP Q2HR PRN Dry Lips Cefepime HCl 2 gm in 100 mls @ 200 mls/hr 11/06/18 07:00 11/10/18 05:48 Maxipime/Ns 2 Gm/100 Ml IV 200 mls/hr Q8HR VIC Administration Protocol Insulin Human Lispro 0 unit 11/06/18 07:00 11/10/18 13:27 Humalog SUB-Q 10 unit Q6HR VIC Administration Protocol Lisinopril 20 mg 11/06/18 10:00 11/10/18 09:11 Zestril PO 20 mg DAILY VIC Administration Loratadine 10 mg 11/06/18 10:00 11/10/18 09:11 Claritin PO 10 mg QDAY VIC Administration Lorazepam 1 mg 11/06/18 10:00 11/10/18 09:11 Ativan PO 1 mg Q12HR VIC Administration Methylprednisolone Sodium Succinate 80 mg 11/07/18 18:30 11/10/18 05:47 Solu-Medrol IV 80 mg Q8HR VIC Administration Multi-Ingred Cream/Lotion/Oil/Oint 1 applic 11/05/18 11:39 Artificial Tears Ophth Oint OU Q4HR PRN Dry Eye(s) Ondansetron HCl 4 mg 11/05/18 04:15 Zofran IV Q8H PRN Nausea And Vomiting Oxycodone/Acetaminophen 1 tab 11/09/18 10:40 11/10/18 10:10 Percocet 5/325 PO 1 tab Q4H PRN Administration Pain, Moderate (4-6) Simple Syrup 15 ml 11/05/18 17:25 Simple Syrup FEEDTUBE PRN PRN Hypoglycemia Simple Syrup 30 ml 11/05/18 17:25 Simple Syrup FEEDTUBE PRN PRN Hypoglycemia Sodium Bicarbonate 325 mg 11/05/18 17:25 Sodium Bicarbonate FEEDTUBE PRN PRN For Clogged Feeding Tube Sodium Chloride 10 ml 11/05/18 10:00 11/10/18 09:12 Sodium Chloride Flush Syringe 10 Ml IV 10 ml BID VIC Administration Sodium Chloride 10 ml 11/05/18 04:15 11/08/18 21:50 Sodium Chloride Flush Syringe 10 Ml IV 10 ml PRN PRN Administration LINE FLUSH Nutrition/Malnutrition Assess - Dietary Evaluation Nutrition/Malnutrition Findings: Nutrition Notes Start: 11/05/18 17:14 Freq: Status: Active Protocol: Document 11/08/18 18:04 RM (Rec: 11/08/18 18:09 RM [id number]) Nutrition Notes Initial or Follow up Reassessment Current Diagnosis COPD,Diabetes,Hypertension, Heart Failure Other Pertinent Diagnosis Schizophrenia, Bipolar Current Diet Cardiac/Consistent CHO Labs/Tests Reviewed Pertinent Medications Reviewed Height 5 ft 3 in Weight 128.8 kg [place] Body Weight (kg) 52.27 BMI 50.3 Subjective/Other Information Pt stated that her appetite is good and that she eats all of her meals. Percent of energy/protein needs met: 100%/100% Burn Absent Trauma Absent #1 Nutrition Diagnosis Inadequate oral intake As Evidenced by Signs and Symptoms pt meeting 100% of calorie and 100% of protein needs Diagnosis Progress(for reassessment Resolved documentation) Is patient on ventilator? Yes Is Patient Ambulatory and/or Out of Bed No REE-([facility]-confined to bed) 2232.192 Kcal/Kg value to use for calculation 14 Approximate Energy Requirements Using 1803 kcal/Kg Calculation Used for Recommendations Kcal/kg Additional Notes Protein Needs: 73-91g (0.8-1g/ kg) 91 kg adjBW) Fluid Needs: 1 ml/kcal Nutrition Intervention Change Diet Order: Continue current Goal #1 Continue to meet at least 75% of calorie and protein needs via PO and ONS intakes Anticipated Discharge Needs: Cardiac/Consistent CHO Revisit per MD consult or patient Sign Off request:
--- NOTE | 2018-11-10 14:03 | Consultation ---
History of Present Illness - Reason for Consult Consult date: 11/10/18 Reason for consult: psychiatric evaluation - Chief Complaint Chief complaint: "I can't get to doctors." - History of Present Psychiatric Illness 53 year old WF seen for psychiatric evaluation on the telemetry floor. She was agreeable to the consult. [She presented to [facility] ED on 11/05/18 with SOB. She desaturated down to 50% and became asystolic, Code Blue was called on 11/05/18. She was successfully rescusicatated, intubated and transferred to the ICU. She was subsequently extubated on 11/06/18 and transferred out of the ICU.] She talked about the stress she has with lack of family support, trouble getting to doctor appointments, chronic medical conditions, chronic pain, and financial problems. "My family doesn't care." She says her sister was notified about the events of this hospital visit, and says her sister told her to stop throwing a pity alliance party. Her son lives close. She says he wants her in a group home facility and does not care about her. She wants to spend more time with her daughter and her family but she is not geographically close. They are in [place]. She states she was diagnosed with schizophrenia and bipolar disorder. She is currently on lexapro and ativan, prescribed by her PCP. She has not seen a psychiatrist recently and is not established with mental health services. She is open to outpatient mental health referrals. She reports depression, anxiety, and non command auditory hallucinations (chronic). She st ates she has a history of gabriele lasting a week and will not sleep during this time. No alcohol or illicit substance use reported. Mental health symptoms worsened when she was no longer able to see her pain management provider. She adamantly denies suicidal ideation. She denies homicidal ideation. No current manic symptoms. Medications and Allergies Allergies Allergy/AdvReac Type Severity Reaction Status Date / Time Penicillins Allergy Angioedema Verified 09/14/18 13:55 prednisone Allergy Unknown Verified 09/14/18 13:55 bupropion HCl AdvReac Unknown Verified 09/14/18 13:55 [From Wellbutrin] divalproex sodium AdvReac Unknown Verified 09/14/18 13:55 [From Depakote] fluoxetine HCl [From Prozac] AdvReac Unknown Verified 09/14/18 13:55 lithium AdvReac Unknown Verified 09/14/18 13:55 Home Medications Medication Instructions Recorded Confirmed Last Taken Type Insulin Aspart Protam & Aspart 15 units SUB-Q TID 30 Days 07/30/18 11/10/18 11/10/18 06:00 Rx [NovoLOG Mix 70-30 Flexpen] insuln.pen Lisinopril 20 mg PO DAILY #30 tablet 07/30/18 11/10/18 11/10/18 09:10 Rx Loratadine [Claritin] 10 mg PO QDAY #10 tablet 07/30/18 11/10/18 11/10/18 09:10 Rx Escitalopram Oxalate [Lexapro] 20 mg PO QDAY 09/14/18 11/10/18 11/10/18 09:10 History LORazepam [Ativan] 1 mg PO Q12H 09/14/18 11/10/18 11/10/18 09:10 History Omeprazole 20 mg PO QDAY 09/14/18 11/10/18 11/10/18 09:10 History oxyCODONE /ACETAMINOPHEN [Percocet 1 tab PO Q8H PRN 09/14/18 11/10/18 11/10/18 10:10 History 5/325 mg] ALBUTEROL Inhaler(NF) [VENTOLIN 2 puff IH Q4H PRN #1 can 09/17/18 11/10/1811/10 09:10 Rx Inhaler(NF)] ALBUTEROL NEB's [Proventil 0.083% 2.5 mg IH QID PRN #60 nebu 09/17/18 11/10/18 11/10/18 Rx NEBS] Budesonide/Formoterol Fumarate 1 puff IH BID #60 hfa.aer.ad 09/17/18 11/10/18 11/10/18 Rx [Symbicort 160-4.5 Mcg Inhaler] guaiFENesin [Robitussin] 200 mg PO Q4H PRN #1 bottle 09/17/18 11/10/18 11/10/18 Rx Active Meds: Active Medications Acetaminophen (Tylenol) 650 mg PO Q4H PRN PRN Reason: Pain MILD(1-3)/Fever >100.5/KHAN Last Admin: 11/09/18 00:24 Dose: 650 mg Documented by: Albuterol/Ipratropium (Duoneb *Not For Prn Use*) 1 ampul IH Q6HRT [facility] Last Admin: 11/10/18 08:08 Dose: 1 ampul Documented by: Lipase/Protease/Amylase (Coreen Shaffer 10,500 Unit) 1 each FEEDTUBE PRN PRN PRN Reason: For Clogged Feeding Tube Arformoterol Tartrate (Brovana Nebu) 15 mcg IH Q12HRT [facility] Last Admin: 11/10/18 08:08 Dose: 15 mcg Documented by: Budesonide (Pulmicort) 0.5 mg IH Q12HRT [facility] Last Admin: 11/10/18 08:08 Dose: 0.5 mg Documented by: Dextrose (D50w (25gm) Syringe) 50 ml IV PRN PRN PRN Reason: Hypoglycemia Enoxaparin Sodium (Lovenox) 40 mg SUB-Q QDAY@1000 VIC Last Admin: 11/10/18 09:12 Dose: 40 mg Documented by: Escitalopram Oxalate (Lexapro) 20 mg PO QDAY [facility] Last Admin: 11/10/18 09:11 Dose: 20 mg Documented by: Famotidine (Pepcid) 20 mg PO QDAY [facility] Last Admin: 11/10/18 09:11 Dose: 20 mg Documented by: Hydrocodone Bit/Homatropine Methylb (Hydromet) 10 ml PO Q6H PRN PRN Reason: Cough Last Admin: 11/10/18 09:10 Dose: 10 ml Documented by: Hydrophilic Ointment (Vaseline Lip Therapy) 1 applic TP Q2HR PRN PRN Reason: Dry Lips Cefepime HCl (Maxipime/Ns 2 Gm/100 Ml) 2 gm in 100 mls @ 200 mls/hr IV Q8HR [facility]; Protocol Last Admin: 11/10/18 05:48 Dose: 200 mls/hr Documented by: Insulin Human Lispro (Humalog) 0 unit SUB-Q Q6HR [facility]; Protocol Last Admin: 11/10/18 13:27 Dose: 10 unit Documented by: Lisinopril (Zestril) 20 mg PO DAILY [facility] Last Admin: 11/10/18 09:11 Dose: 20 mg Documented by: Loratadine (Claritin) 10 mg PO QDAY [facility] Last Admin: 11/10/18 09:11 Dose: 10 mg Documented by: Lorazepam (Ativan) 1 mg PO Q12HR [facility] Last Admin: 11/10/18 09:11 Dose: 1 mg Documented by: Methylprednisolone Sodium Succinate (Solu-Medrol) 80 mg IV Q8HR [facility] Last Admin: 11/10/18 05:47 Dose: 80 mg Documented by: Multi-Ingred Cream/Lotion/Oil/Oint (Artificial Tears Ophth Oint) 1 applic OU Q4HR PRN PRN Reason: Dry Eye(s) Ondansetron HCl (Zofran) 4 mg IV Q8H PRN PRN Reason: Nausea And Vomiting Oxycodone/Acetaminophen (Percocet 5/325) 1 tab PO Q4H PRN PRN Reason: Pain, Moderate (4-6) Last Admin: 11/10/18 10:10 Dose: 1 tab Documented by: Simple Syrup (Simple Syrup) 15 ml FEEDTUBE PRN PRN PRN Reason: Hypoglycemia Simple Syrup (Simple Syrup) 30 ml FEEDTUBE PRN PRN PRN Reason: Hypoglycemia Sodium Bicarbonate (Sodium Bicarbonate) 325 mg FEEDTUBE PRN PRN PRN Reason: For Clogged Feeding Tube Sodium Chloride (Sodium Chloride Flush Syringe 10 Ml) 10 ml IV BID [facility] Last Admin: 11/10/18 09:12 Dose: 10 ml Documented by: Sodium Chloride (Sodium Chloride Flush Syringe 10 Ml) 10 ml IV PRN PRN PRN Reason: LINE FLUSH Last Admin: 11/08/18 21:50 Dose: 10 ml Documented by: Past psychiatric history - Past Medical History Past Medical History: COPD (14 visits in the last 12 months for ANN), other ( hypertension, DM, chronic hypoxic respiratory failure on 2 liters of home O2 due to end stage COPD, CHF, chronic pain syndrome ) - past Psychiatric treatment and history Psych: Bipolar, Schizophrenia psychiatric treatment history: Takes lexapro 20mg daily and ativan 1mg bid for anxiety Her PCP prescribes her psych meds. No current psychiatrist or counselor Past medication trials: latuda-good but couldn't afford abilify-not effective prozac- "wild woman" wellbutrin- "like speed" History of manic episodes lasting 1 week or more Depressive episodes - Social History Social history: single (lives [place] with a friend), smoking, other (no alcohol or illicit substance use) Mental Status Exam - Vital signs Last Vital Signs Temp 97.5 F L 11/10/18 12:09 Pulse 63 11/10/18 12:45 Resp 16 11/10/18 12:09 BP 154/86 11/10/18 12:09 Pulse Ox 92 11/10/18 12:09 - Exam Orientation: time, place, person Affect: depressed, anxious Mood: congruent with affect Thought content: other (denies suicidal/homicidal ideation) Thought Process: Intact Perceptions: auditory, hallucinations Speech: normal rate and pattern Concentration: focused Motor activity: normal Level of consciousness: alert Memory: Intact Sleep Symptoms: None Interaction: cooperative Results Result Diagrams: 11/10/18 04:27 11/10/18 04:27 Abnormal lab results 11/09/18 11/09/18 11/10/18 Range/Units 18:22 23:27 04:27 Sodium 136 L (137-145) mmol/L Chloride 94.8 L (98-107) mmol/L BUN 21 H (7-17) mg/dL Glucose 322 H (65-100) mg/dL POC Glucose 406 H 361 H (70-105) 11/10/18 11/10/18 Range/Units 06:08 12:17 Sodium (137-145) mmol/L Chloride (98-107) mmol/L BUN (7-17) mg/dL Glucose (65-100) mg/dL POC Glucose 265 H 347 H (70-105) All other labs normal. Assessment and Plan Assessment and plan: Impression: schizoaffective disorder, bipolar type by history differential: depression caused by medical conditions unspecified anxiety disorder She has significant life stressors and would benefit from social support, outpatient mental health care, and outpatient case management. She needs assistance in restarting secondary medicaid. No acute safety concerns identified. Recommendations: 1013 NOT indicated She prefers to keep her meds the same. An atypical antipsychotic is recommended for mood/psychotic symptoms. She was informed of the risk of respiratory depre ssion associated with use of benzodiazepines and opiates. Abrupt discontinuation of benzos are not recommended considering she has been on them for an extended period of time. She should address these concerns with the outpatient provider. dispo: outpatient mental health referrals [facility]. crisis line provided She is recommended to discuss restarting latuda with the outpatient psychiatric provider. staffed with Dr. Marcano
--- NOTE | 2018-11-10 17:48 | Progress Note ---
Assessment and Plan Patient alert, awake. Resting on 3 litters O2. Says breathing better. O2 Sat 94%. No acute respiratory distress. Patient go on BiPAP during the night time. Patients CAT scan of chest reported recent right sided rib fractures. Complaining right sided chest pain.Patient is on percocet. - Patient Problems (1) Acute exacerbation of chronic obstructive pulmonary disease (COPD) Current Visit: No Status: Acute Plan to address problem: O2 3 litres via nasal canula. BIPAP during night time and Prn for shortness of breath during day time. Continue solumedrol. Continue cepepime, Continue S/C Lovenox. Continue PEPCID. (2) Acute hypoxemic respiratory failure Current Visit: No Status: Acute Plan to address problem: O2 3 litres via nasal canula. BIPAP during night time and Prn for shortness of breath during day time. Continue solumedrol. Continue cepepime, Continue S/C Lovenox. Continue PEPCID (3) Morbid obesity with BMI of 50.0-59.9, adult Current Visit: No Status: Acute Plan to address problem: Diet and exercise. (4) Obesity hypoventilation syndrome Current Visit: No Status: Acute Plan to address problem: BIPAP during night time. BIPAP PRN during day time. (5) Bipolar 1 disorder Current Visit: Yes Status: Chronic Plan to address problem: Management as per psychiatry. (6) Schizophrenia Current Visit: Yes Status: Chronic Qualifiers: Schizophrenia type: unspecified Qualified Code(s): F20.9 - Schizophrenia, unspecified Plan to address problem: Management as per Psychiatry. (7) T2DM (type 2 diabetes mellitus) Current Visit: Yes Status: Chronic Qualifiers: Diabetes mellitus half-way insulin use: unspecified half-way insulin use status Plan to address problem: Management as per primary care. (8) HTN (hypertension) Current Visit: No Status: Chronic Qualifiers: Hypertension type: essential hypertension Qualified Code(s): I10 - Essential (primary) hypertension Plan to address problem: Management as per primary care. (9) Nicotine dependence Current Visit: No Status: Chronic Qualifiers: Nicotine product type: cigarettes Plan to address problem: Counselled to stop smoking. (10) Right rib fracture Current Visit: Yes Status: Acute Plan to address problem: Patient is on Percocet q 4 hours PRN for pain. Subjective Date of service: 11/10/18 Principal diagnosis: Acute resp failure and Copd exacerbation Interval history: Patient alert, awake. Resting on 3 litters O2. Says breathing better. O2 Sat 94%. No acute respiratory distress. Patient go on BiPAP during the night time. Patients CAT scan of chest reported recent right sided rib fractures. Complaining right sided chest pain.Patient is on percocet. Objective Vital Signs - 12hr 11/10/18 11/10/18 11/10/18 08:08 08:09 08:31 Temperature 98.0 F Pulse Rate 68 Pulse Rate [ 58 L Anterior Bilateral Throughout] Pulse Rate [ From Monitor] Respiratory 20 Rate Respiratory 20 Rate [Anterior Bilateral Throughout] Blood Pressure 187/87 O2 Sat by Pulse 97 99 Oximetry 11/10/18 11/10/18 11/10/18 08:38 09:11 10:00 Temperature Pulse Rate 70 Pulse Rate [ 70 Anterior Bilateral Throughout] Pulse Rate [ 81 From Monitor] Respiratory 20 Rate Respiratory 18 Rate [Anterior Bilateral Throughout] Blood Pressure 187/87 O2 Sat by Pulse 92 Oximetry 11/10/18 11/10/18 11/10/18 10:10 12:09 12:45 Temperature 97.5 F L Pulse Rate 74 63 Pulse Rate [ Anterior Bilateral Throughout] Pulse Rate [ From Monitor] Respiratory 20 16 Rate Respiratory Rate [Anterior Bilateral Throughout] Blood Pressure 154/86 O2 Sat by Pulse 92 Oximetry 11/10/18 11/10/18 11/10/18 14:04 14:24 14:46 Temperature Pulse Rate Pulse Rate [ 72 77 Anterior Bilateral Throughout] Pulse Rate [ From Monitor] Respiratory 20 Rate Respiratory 18 18 Rate [Anterior Bilateral Throughout] Blood Pressure O2 Sat by Pulse Oximetry Constitutional: no acute distress, alert, other (Morbidley Obese.) Eyes: non-icteric ENT: oropharynx moist Neck: supple, no lymphadenopathy Ascultation: Bilateral: diminished breath sounds (At the bases.), other (Prolonged expiratory phase.) Cardiovascular: regular rate and rhythm Gastrointestinal: normoactive bowel sounds, soft, non-tender, other (Obese.) Integumentary: normal Extremities: no cyanosis, no edema Neurologic: normal mental status, non-focal exam, pupils equal and round, CN II- XII normal Psychiatric: mood appropriate CBC and BMP: 11/10/18 04:27 11/10/18 04:27 ABG, PT/INR, D-dimer: ABG POC ABG pH 7.333 (7.35-7.45) L 11/07/18 15:33 POC ABG pCO2 48.0 (35-45) H 11/07/18 15:33 POC ABG pO2 79 (80-105) L 11/07/18 15:33 POC ABG HCO3 25.5 (22-26 mml/L) 11/07/18 15:33 POC ABG Total CO2 27 (23-27mmol/L) 11/07/18 15:33 POC ABG O2 Sat 95 11/07/18 15:33 PT/INR, D-dimer 1905.84 ng/mlDDU (0-234) H 11/05/18 14:38 Abnormal lab findings: Abnormal Labs 11/05/18 11/05/18 11/05/18 02:30 02:30 02:51 WBC Hgb 14.5 H MCHC 36 H Seg Neuts % (Manual) Lymphocytes % (Manual) Seg Neutrophils # Man D-Dimer POC ABG pH 7.322 L POC ABG pCO2 55.5 H POC ABG pO2 Sodium Potassium Chloride Carbon Dioxide 31 H BUN 6 L Glucose POC Glucose Calcium 11/05/18 11/05/18 11/05/18 10:05 11:02 11:54 WBC Hgb MCHC Seg Neuts % (Manual) Lymphocytes % (Manual) Seg Neutrophils # Man D-Dimer POC ABG pH 7.137 L POC ABG pCO2 POC ABG pO2 Sodium Potassium Chloride Carbon Dioxide BUN Glucose POC Glucose 171 H 165 H Calcium 11/05/18 11/05/18 11/05/18 12:29 14:24 14:38 WBC Hgb MCHC Seg Neuts % (Manual) Lymphocytes % (Manual) Seg Neutrophils # Man D-Dimer 1905.84 H POC ABG pH POC ABG pCO2 POC ABG pO2 75 L Sodium Potassium Chloride Carbon Dioxide BUN Glucose POC Glucose 212 H Calcium 11/05/18 11/06/18 11/06/18 21:15 04:07 04:07 WBC 12.4 H Hgb MCHC Seg Neuts % (Manual) 84.0 H Lymphocytes % (Manual) 10.0 L Seg Neutrophils # Man 10.4 H D-Dimer POC ABG pH POC ABG pCO2 POC ABG pO2 Sodium Potassium Chloride Carbon Dioxide BUN Glucose 190 H POC Glucose 212 H Calcium 11/06/18 11/06/18 11/06/18 04:21 07:36 07:42 WBC Hgb MCHC Seg Neuts % (Manual) Lymphocytes % (Manual) Seg Neutrophils # [place] D-Dimer POC ABG pH POC ABG pCO2 POC ABG pO2 66 L Sodium Potassium Chloride Carbon Dioxide BUN Glucose 198 H POC Glucose 197 H Calcium 11/06/18 11/06/18 11/06/18 09:25 11:47 15:22 WBC Hgb MCHC Seg Neuts % (Manual) Lymphocytes % (Manual) Seg Neutrophils # [place] D-Dimer POC ABG pH POC ABG pCO2 POC ABG pO2 Sodium Potassium Chloride Carbon Dioxide BUN Glucose POC Glucose 190 H 188 H 190 H Calcium 11/06/18 11/07/18 11/07/18 23:05 05:51 13:06 WBC Hgb MCHC Seg Neuts % (Manual) Lymphocytes % (Manual) Seg Neutrophils # [place] D-Dimer POC ABG pH POC ABG pCO2 POC ABG pO2 Sodium Potassium Chloride Carbon Dioxide BUN Glucose POC Glucose 287 H 228 H 260 H Calcium 11/07/18 11/08/18 11/08/18 15:33 01:10 05:51 WBC Hgb MCHC Seg Neuts % (Manual) Lymphocytes % (Manual) Seg Neutrophils # [place] D-Dimer POC ABG pH 7.333 L POC ABG pCO2 48.0 H POC ABG pO2 79 L Sodium Potassium Chloride Carbon Dioxide BUN Glucose POC Glucose 368 H 280 H Calcium 11/08/18 11/08/18 11/08/18 05:55 05:55 11:30 WBC 13.1 H Hgb MCHC Seg Neuts % (Manual) Lymphocytes % (Manual) Seg Neutrophils # [place] D-Dimer POC ABG pH POC ABG pCO2 POC ABG pO2 Sodium 136 L Potassium 5.1 H Chloride 97.8 L Carbon Dioxide BUN 20 H Glucose 260 H POC Glucose 280 H Calcium 10.3 H 11/08/18 11/09/18 11/09/18 16:37 00:32 06:34 WBC Hgb MCHC Seg Neuts % (Manual) Lymphocytes % (Manual) Seg Neutrophils # Man D-Dimer POC ABG pH POC ABG pCO2 POC ABG pO2 Sodium Potassium Chloride Carbon Dioxide BUN Glucose POC Glucose 346 H 359 H 342 H Calcium 11/09/18 11/09/18 11/09/18 12:39 18:22 23:27 WBC Hgb MCHC Seg Neuts % (Manual) Lymphocytes % (Manual) Seg Neutrophils # Man D-Dimer POC ABG pH POC ABG pCO2 POC ABG pO2 Sodium Potassium Chloride Carbon Dioxide BUN Glucose POC Glucose 333 H 406 H 361 H Calcium 11/10/18 11/10/18 11/10/18 04:27 06:08 12:17 WBC Hgb MCHC Seg Neuts % (Manual) Lymphocytes % (Manual) Seg Neutrophils # Man D-Dimer POC ABG pH POC ABG pCO2 POC ABG pO2 Sodium 136 L Potassium Chloride 94.8 L Carbon Dioxide BUN 21 H Glucose 322 H POC Glucose 265 H 347 H Calcium
[2018-11-11] MEDS: PERCOCET 5/325 PO PRN ×4 (02:48→15:03)
[2018-11-11] MEDS: DUONEB *Not for PRN Use IH SCH ×3 (02:55→15:00)
[2018-11-11] MEDS: HYDROMET PO PRN ×2 (05:45→12:32)
[2018-11-11] MEDS: MAXIPIME/NS 2 GM/100 ML 2 GM/100 ML BAG IV SCH ×2 (05:47→15:04)
[2018-11-11] MEDS: SOLU-Medrol IV SCH ×2 (05:47→15:03)
[2018-11-11 06:01] LABS: Hematocrit 41.5 % (30.3-42.9); Hemoglobin 13.7 gm/dl (10.1-14.3); Mean Corpuscular HGB Conc 33 % (30-34); Mean Corpuscular Volume 89 fl (79-97); Platelet Count 212 K/mm3 (140-440); Red Blood Count 4.65 M/mm3 (3.65-5.03); Red Cell Distribution Width 14.4 % (13.2-15.2)
[2018-11-11 06:41] LABS: BUN/Creatinine Ratio 33; Blood Urea Nitrogen 20 mg/dL (7-17); Calcium 10.4 mg/dL (8.4-10.2); Hemolysis Index 8
[2018-11-11] MEDS: HumaLOG SUB-Q SCH ×2 (06:55→12:33)
[2018-11-11] MEDS: BROVANA NEBU IH SCH (08:27)
[2018-11-11] MEDS: PULMICORT IH SCH (08:27)
[2018-11-11] MEDS: ATIVAN PO SCH ×2 (10:35→15:52)
[2018-11-11] MEDS: CLARITIN PO SCH (10:35)
[2018-11-11] MEDS: PEPCID PO SCH (10:35)
[2018-11-11] MEDS: LEXAPRO PO SCH (10:35)
[2018-11-11] MEDS: LOVENOX SUB-Q SCH (10:36)
[2018-11-11] MEDS: SODIUM CHLORIDE FLUSH SYRINGE 10 ML IV SCH (10:36)
[2018-11-11] MEDS: ZESTRIL PO SCH (10:36)
[2018-11-11 12:37] VITALS: BP 156/85
--- NOTE | 2018-11-11 13:04 | Progress Note ---
Subjective - Reason for Consult Consult date: 11/11/18 Reason for consult: Psychiatric Follow-up Evaluation - Chief Complaint Chief complaint: "I'm going home. " Patient is a 53 year old WF seen for psychiatric evaluation on the telemetry floor. She has a PPHx of schizophrenia and bipolar disorder. She is currently on lexapro and ativan, prescribed by her PCP. She has not seen a psychiatrist recently and is not established with mental health services. She is open to outpatient mental health referrals. Today the patient is cooperative but anxious during the assessment. She denies SI/HI's, A/VH's, and delusions. Mental Status Exam - Vital signs Last Vital Signs Temp 98.3 F 11/11/18 12:35 Pulse 68 11/11/18 12:35 Resp 20 11/11/18 12:35 BP 156/85 11/11/18 12:35 Pulse Ox 96 11/11/18 12:35 - Exam Narrative exam: Orientation: time, place, person Affect: depressed, anxious Mood: congruent with affect Thought content: other (denies suicidal/homicidal ideation) Thought Process: Intact Perceptions: patient denies A/V/T hallucinations Speech: normal rate and pattern Concentration: focused Motor activity: normal Level of consciousness: alert Memory: Intact Sleep Symptoms: None Interaction: cooperative Assessment and Plan Impression: Schizoaffective disorder, bipolar type by history. Today the patient is cooperative but anxious to during the assessment. She denies SI/HI's, A/VH's, and delusions. DDx: depression caused by medical conditions, unspecified anxiety disorder She has significant life stressors and would benefit from social support, outpatient mental health care, and outpatient case management. She needs assistance in restarting secondary medicaid.No acute safety concerns identified. Recommendations: 1. 1013 NOT indicated 2. She prefers to keep her meds the same. An atypical antipsychotic is recommended for mood/psychotic symptoms. She was informed of the risk of respiratory depression associated with use of benzodiazepines and opiates. Abrupt discontinuation of benzos are not recommended considering she has been on them for an extended period of time. She should address these concerns with the outpatient provider. Disposition: On 11/10/18 patient was given outpatient mental health referrals to [facility]. Crisis line provided. She is recommended to discuss restarting latuda with the outpatient psychiatric provider. Staffed with Dr. Marcano
--- NOTE | 2018-11-11 14:48 | Discharge Summary ---
Providers - Providers Date of Admission: 11/05/18 05:23 Date of discharge: 11/11/18 Attending physician: RACHEL RINCON 11/05/18 11:09 Consult to Physician [CONS] Routine Comment: Consulting Provider: MERVIN GALEANA Physician Instructions: Reason For Exam: Respiratory failure 11/05/18 11:39 Consult to Dietitian/Nutrition [CONS] Routine Physician Instructions: Reason For Exam: Reason for Consult: Evaluate nutritional intake 11/05/18 12:35 Consult to Dietitian/Nutrition [CONS] Routine Physician Instructions: Reason For Exam: Reason for Consult: Write/Manage Tube Feeding 11/09/18 12:58 Consult to Mental Health [CONS] Urgent Reason For Exam: psych Place consult to:: revenue enforcement agent sap integration architect Notified:: awaiting call back Comment:: fax to [phone] 11/09/18 13:54 Physical Therapy Evaluation and Treat [CONS] Routine Comment: Reason For Exam: Eval/treat, muscle weakness, assess ambulation Primary care physician: SHILA CALL Hospitalization Condition: Stable Hospital course: Patient is a 53 yo woman with a history of hypertension, IDDM, chronic hypoxic respiratory failure on 2 liters of home O2 due to end stage COPD, CHF, bipolar, schizophrenia, chronic pain syndrome who presented to [facility] ED on 11/05/18 with SOB. She desaturated down to 50% and became asytolic, Code Blue was called on 11/05/18. She was successfully rescusicatated, intubated and transferred to the ICU. She was subsequently extubated on 11/06/18 and transferred out of the ICU. * CTA chest IMPRESSION: 1. No evidence for pulmonary embolism 2. Atelectasis in both lower lobes and the right middle lobe 3. Recent acute rib fractures involving the anterior right third through fifth ribs. Acute on chronic hypoxic respiratory failure due to AE COPD s/p MV: continue treatment for COPD, Pulm is following s/p Cardiopulmonary arrest most likely due to hypoxemia AE COPD: iv steroids, neb, abx Hypertension: low salt diet, antihypertensives Mild hyperkalemia, resolved: repeat in am Morbid Obesity BMI 52.8: financial services counselor on lifestyle modifications Type 2 Diabetes mellitus uncontrolled hyperglycemia: ada, ssi, Bipolar disorder and Schizophrenia: consult Mental health Chronic pain: adjusted pain medications Bilateral atelectasis: ordered Incentive spirometry Acute rib fracture, most likely due to chest compressions: pain control. DVT ppx sq lovenox Disposition: [facility] Disposition: [id number] [facility] Time spent for discharge: 34 minutes Core Measure Documentation - Palliative Care Palliative Care/ Comfort Measures: Not Applicable - Core Measures Any of the following diagnoses?: none - VTE Discharge Requirements Deep Vein Thrombosis/Pulmonary Embolism Present on Admission: No Has pt received <5 days of overlap therapy or INR<2.0: No Anticoagulant overlap therapy prescribed at discharge: No Contraindication No Overlap Therapy order at DC: Not Indicated Exam - Physical Exam Narrative exam: Gen: WDWN, bmi 52.8, NAD, Awake, Alert, Orientated HEENT: NCAT, EOMI, PERRL, OP Clear Neck: supple, no adenopathy, no thyromegaly, no JVD CVS/Heart: RRR, normal S1S2, pulses present bilaterally Chest/Lungs: diminished Symmetrical chest expansion, good air entry bilaterally GI/Abdomen: soft, NTND, good bowel sounds, no guarding or rebound /Bladder: no suprapubic tenderness, no CVA or paraspinal tenderness Extermity/Skin: no c/c/e, no obvious rash MSK: FROM x 4 Neuro: CN 2-12 grossly intact, no new focal deficits Psych: anxiety - Constitutional Vitals: Temp Pulse Resp BP Pulse Ox 98.3 F 68 20 156/85 96 11/11/18 12:35 11/11/18 12:35 11/11/18 12:35 11/11/18 12:35 11/11/18 12:35 Plan Activity: other (no strenous activity) Diet: low salt, diabetic Special Instructions: record daily BP diary, record blood sugar diary Follow up with: SHILA CALL MD [Primary Care Provider] - 7 Days MERVIN GALEANA MD [Staff Physician] - 7 Days Prescriptions: LORazepam [Ativan] 0.5 mg PO BID PRN #10 tab PRN Reason: Anxiety Ipratropium/Albuterol Sulfate [DUONEB *Not for PRN Use*] 1 ampul IH Q6HRT PRN #30 ampul.neb PRN Reason: Shortness Of Breath levoFLOXacin [Levaquin] 750 mg PO QDAY #3 tablet methylPREDNISolone [Medrol 4MG DOSEPAK (21 tabs)] 1 dose PO DAILY #1 tab.ds.pk Oxycodone HCl/Acetaminophen [Percocet 10/325 mg] 1 each PO Q6HR PRN #20 tablet PRN Reason: Pain , Severe (7-10)
--- NOTE | 2018-11-11 15:17 | Progress Note ---
Assessment and Plan Assessment and plan: Patient is a 53 yo woman with a history of hypertension, IDDM, chronic hypoxic respiratory failure on 2 liters of home O2 due to end stage COPD, CHF, bipolar, schizophrenia, chronic pain syndrome who presented to [facility] ED on 11/05/18 with SOB. She desaturated down to 50% and became asytolic, Code Blue was called on 11/05/18. She was successfully rescusicatated, intubated and transferred to the ICU. She was subsequently extubated on 11/06/18 and transferred out of the ICU. * CTA chest IMPRESSION: 1. No evidence for pulmonary embolism 2. Atelectasis in both lower lobes and the right middle lobe 3. Recent acute rib fractures involving the anterior right third through fifth ribs. Acute on chronic hypoxic respiratory failure due to AE COPD s/p MV: continue treatment for COPD, Pulm is following s/p Cardiopulmonary arrest most likely due to hypoxemia AE-COPD: iv steroids, neb, abx Hypertension: low salt diet, antihypertensives Mild hyperkalemia, resolved: repeat in am Morbid Obesity BMI 52.8: recreation counselor on lifestyle modifications Type 2 Diabetes mellitus uncontrolled hyperglycemia: ada, ssi, Bipolar disorder and Schizophrenia: consult Mental health Chronic pain: adjusted pain medications Bilateral atelectasis: ordered Incentive spirometry Acute rib fracture, most likely due to chest compressions: pain control. DVT ppx sq lovenox Disposition: continue inpatient care, O2 down to 2.5L, hopefully will be down to baseline of 2L and she can be discharge today she lives at [facility] History Interval history: Patient was seen and examined. Follow-up on current diagnosis of COPD. No overnight events reported to me. Patient denies any chest pain, shortness breath, nausea/vomiting or severe headaches. Imaging, nursing note, chart, labs and old chart reviewed. Discussed with patient. Hospitalist Physical - Physical exam Narrative exam: Gen: WDWN, bmi 52.8, NAD, Awake, Alert, Orientated HEENT: NCAT, EOMI, PERRL, OP Clear Neck: supple, no adenopathy, no thyromegaly, no JVD CVS/Heart: RRR, normal S1S2, pulses present bilaterally Chest/Lungs: diminished Symmetrical chest expansion, good air entry bilaterally GI/Abdomen: soft, NTND, good bowel sounds, no guarding or rebound /Bladder: no suprapubic tenderness, no CVA or paraspinal tenderness Extermity/Skin: no c/c/e, no obvious rash MSK: FROM x 4 Neuro: CN 2-12 grossly intact, no new focal deficits Psych: anxiety - Constitutional Vitals: Temp Pulse Resp BP Pulse Ox 98.3 F 77 18 156/85 93 11/11/18 12:35 11/11/18 15:15 11/11/18 15:15 11/11/18 12:35 11/11/18 15:00 General appearance: Present: well-nourished. Absent: severe distress Results - Labs CBC & Chem 7: 11/11/18 05:24 11/11/18 05:24 Labs: Laboratory Last Values WBC 9.8 K/mm3 (4.5-11.0) 11/11/18 05:24 RBC 4.65 M/mm3 (3.65-5.03) 11/11/18 05:24 Hgb 13.7 gm/dl (10.1-14.3) 11/11/18 05:24 Hct 41.5 % (30.3-42.9) 11/11/18 05:24 MCV 89 fl (79-97) 11/11/18 05:24 MCH 29 pg (28-32) 11/11/18 05:24 MCHC 33 % (30-34) 11/11/18 05:24 RDW 14.4 % (13.2-15.2) 11/11/18 05:24 Plt Count 212 K/mm3 (140-440) 11/11/18 05:24 Lymph % (Auto) 25.3 % (13.4-35.0) 11/05/18 02:30 [place] % (Auto) 6.4 % (0.0-7.3) 11/05/18 02:30 Eos % (Auto) 3.9 % (0.0-4.3) 11/05/18 02:30 Baso % (Auto) 0.6 % (0.0-1.8) 11/05/18 02:30 Lymph # 2.2 K/mm3 (1.2-5.4) 11/05/18 02:30 [place] # 0.6 K/mm3 (0.0-0.8) 11/05/18 02:30 Eos # 0.3 K/mm3 (0.0-0.4) 11/05/18 02:30 Baso # 0.1 K/mm3 (0.0-0.1) 11/05/18 02:30 Add Manual Diff Complete 11/06/18 04:07 Total Counted 100 11/06/18 04:07 Seg Neutrophils % Deputy Commonwealth'S Attorney 11/06/18 04:07 Seg Neuts % (Manual) 84.0 % (40.0-70.0) H 11/06/18 04:07 5.0 % 11/06/18 04:07 10.0 % (13.4-35.0) L 11/06/18 04:07 Reactive Lymphs % (Man) 0 % 11/06/18 04:07 1.0 % (0.0-7.3) 11/06/18 04:07 0 % (0.0-4.3) 11/06/18 04:07 0 % (0.0-1.8) 11/06/18 04:07 0 % 11/06/18 04:07 0 % 11/06/18 04:07 0 % 11/06/18 04:07 0 % 11/06/18 04:07 Nucleated RBC % Not Reportable 11/06/18 04:07 Seg Neutrophils # 5.7 K/mm3 (1.8-7.7) 11/05/18 02:30 Seg Neutrophils # Man 10.4 K/mm3 (1.8-7.7) H 11/06/18 04:07 Band Neutrophils # 0.6 K/mm3 11/06/18 04:07 1.2 K/mm3 (1.2-5.4) 11/06/18 04:07 Abs React Lymphs (Man) 0.0 K/mm3 11/06/18 04:07 0.1 K/mm3 (0.0-0.8) 11/06/18 04:07 0.0 K/mm3 (0.0-0.4) 11/06/18 04:07 0.0 K/mm3 (0.0-0.1) 11/06/18 04:07 0.0 K/mm3 11/06/18 04:07 0.0 K/mm3 11/06/18 04:07 0.0 K/mm3 11/06/18 04:07 Blast Cells # 0.0 K/mm3 11/06/18 04:07 WBC Morphology Not Reportable 11/06/18 04:07 Hypersegmented Neuts Not Reportable 11/06/18 04:07 Hyposegmented Neuts Not Reportable 11/06/18 04:07 Hypogranular Neuts Not Reportable 11/06/18 04:07 Not Reportable 11/06/18 04:07 Not Reportable 11/06/18 04:07 Not Reportable 11/06/18 04:07 Not Reportable 11/06/18 04:07 Not Reportable 11/06/18 04:07 Not Reportable 11/06/18 04:07 Consistent w auto 11/06/18 04:07 Not Reportable 11/06/18 04:07 Plt Clumps, EDTA Not Reportable 11/06/18 04:07 Not Reportable 11/06/18 04:07 Not Reportable 11/06/18 04:07 Not Reportable 11/06/18 04:07 Plt Morphology Comment Not Reportable 11/06/18 04:07 RBC Morphology Not Reportable 11/06/18 04:07 Dimorphic RBCs Not Reportable 11/06/18 04:07 Not Reportable 11/06/18 04:07 Not Reportable 11/06/18 04:07 Not Reportable 11/06/18 04:07 1+ 11/06/18 04:07 Not Reportable 11/06/18 04:07 Not Reportable 11/06/18 04:07 Not Reportable 11/06/18 04:07 Not Reportable 11/06/18 04:07 Not Reportable 11/06/18 04:07 Not Reportable 11/06/18 04:07 Not Reportable 11/06/18 04:07 Not Reportable 11/06/18 04:07 Not Reportable 11/06/18 04:07 Not Reportable 11/06/18 04:07 Not Reportable 11/06/18 04:07 Not Reportable 11/06/18 04:07 Not Reportable 11/06/18 04:07 Not Reportable 11/06/18 04:07 Not Reportable 11/06/18 04:07 Acanthocytes (Spur) Not Reportable 11/06/18 04:07 Rouleaux Not Reportable 11/06/18 04:07 Not Reportable 11/06/18 04:07 Not Reportable 11/06/18 04:07 Not Reportable 11/06/18 04:07 Not Reportable 11/06/18 04:07 Hem Pathologist Commnt No 11/06/18 04:07 1905.84 ng/mlDDU (0-234) H 11/05/18 14:38 POC ABG pH 7.333 (7.35-7.45) L 11/07/18 15:33 POC ABG pCO2 48.0 (35-45) H 11/07/18 15:33 POC ABG pO2 79 (80-105) L 11/07/18 15:33 POC ABG HCO3 25.5 (22-26 mml/L) 11/07/18 15:33 POC ABG Total CO2 27 (23-27mmol/L) 11/07/18 15:33 POC ABG O2 Sat 95 11/07/18 15:33 POC ABG Base Excess 0 ((-2) - (+3)mmol/L) 11/07/18 15:33 32 % 11/07/18 15:33 Sodium 136 mmol/L (137-145) L 11/11/18 05:24 Potassium 5.6 mmol/L (3.6-5.0) H 11/11/18 05:24 Chloride 93.5 mmol/L (98-107) L 11/11/18 05:24 Carbon Dioxide 32 mmol/L (22-30) H 11/11/18 05:24 16 mmol/L 11/11/18 05:24 BUN 20 mg/dL (7-17) H 11/11/18 05:24 0.6 mg/dL (0.7-1.2) L 11/11/18 05:24 Estimated GFR > 60 ml/min 11/11/18 05:24 33 % 11/11/18 05:24 Glucose 386 mg/dL (65-100) H 11/11/18 05:24 POC Glucose 276 (70-105) H 11/11/18 11:51 Calcium 10.4 mg/dL (8.4-10.2) H 11/11/18 05:24 Active Medications - Current Medications Current Medications: Generic Name Dose Route Start Last Admin Trade Name Freq PRN Reason Stop Dose Admin Acetaminophen 650 mg 11/05/18 04:15 11/09/18 00:24 Tylenol PO 650 mg Q4H PRN Administration Pain MILD(1-3)/Fever >100.5/KHAN Albuterol/Ipratropium 1 ampul 11/05/18 08:00 11/11/18 15:00 Duoneb *Not For Prn Use* IH 1 ampul Q6HRT VIC Administration Lipase/Protease/Amylase 1 each 11/05/18 17:25 Coreen Shaffer 10,500 Unit FEEDTUBE PRN PRN For Clogged Feeding Tube Arformoterol Tartrate 15 mcg 11/05/18 12:45 11/11/18 08:27 Brovana Nebu IH 15 mcg Q12HRT VIC Administration Budesonide 0.5 mg 11/05/18 20:00 11/11/18 08:27 Pulmicort IH 0.5 mg Q12HRT VIC Administration Dextrose 50 ml 11/05/18 04:15 D50w (25gm) Syringe IV PRN PRN Hypoglycemia Enoxaparin Sodium 40 mg 11/05/18 10:00 11/11/18 10:36 Lovenox SUB-Q 40 mg QDAY@1000 VIC Administration Escitalopram Oxalate 20 mg 11/06/18 10:00 11/11/18 10:35 Lexapro PO 20 mg QDAY VIC Administration Famotidine 20 mg 11/06/18 10:00 11/11/18 10:35 Pepcid PO 20 mg QDAY VIC Administration Hydrocodone Bit/Homatropine Methylb 10 ml 11/07/18 15:02 11/11/18 12:32 Hydromet PO 10 ml Q6H PRN Administration Cough Hydrophilic Ointment 1 applic 11/05/18 11:39 Vaseline Lip Therapy TP Q2HR PRN Dry Lips Cefepime HCl 2 gm in 100 mls @ 200 mls/hr 11/06/18 07:00 11/11/18 15:04 Maxipime/Ns 2 Gm/100 Ml IV 200 mls/hr Q8HR VIC Administration Protocol Insulin Human Lispro 0 unit 11/06/18 07:00 11/11/18 12:33 Humalog SUB-Q 6 unit Q6HR VIC Administration Protocol Lisinopril 20 mg 11/06/18 10:00 11/11/18 10:36 Zestril PO 20 mg DAILY VIC Administration Loratadine 10 mg 11/06/18 10:00 11/11/18 10:35 Claritin PO 10 mg QDAY VIC Administration Lorazepam 1 mg 11/06/18 10:00 11/11/18 10:35 Ativan PO 1 mg Q12HR VIC Administration Methylprednisolone Sodium Succinate 80 mg 11/07/18 18:30 11/11/18 15:03 Solu-Medrol IV 80 mg Q8HR VIC Administration Multi-Ingred Cream/Lotion/Oil/Oint 1 applic 11/05/18 11:39 Artificial Tears Ophth Oint OU Q4HR PRN Dry Eye(s) Ondansetron HCl 4 mg 11/05/18 04:15 Zofran IV Q8H PRN Nausea And Vomiting Oxycodone/Acetaminophen 1 tab 11/09/18 10:40 11/11/18 15:03 Percocet 5/325 PO 1 tab Q4H PRN Administration Pain, Moderate (4-6) Simple Syrup 15 ml 11/05/18 17:25 Simple Syrup FEEDTUBE PRN PRN Hypoglycemia Simple Syrup 30 ml 11/05/18 17:25 Simple Syrup FEEDTUBE PRN PRN Hypoglycemia Sodium Bicarbonate 325 mg 11/05/18 17:25 Sodium Bicarbonate FEEDTUBE PRN PRN For Clogged Feeding Tube Sodium Chloride 10 ml 11/05/18 10:00 11/11/18 10:36 Sodium Chloride Flush Syringe 10 Ml IV 10 ml BID VIC Administration Sodium Chloride 10 ml 11/05/18 04:15 11/08/18 21:50 Sodium Chloride Flush Syringe 10 Ml IV 10 ml PRN PRN Administration LINE FLUSH Nutrition/Malnutrition Assess - Dietary Evaluation Nutrition/Malnutrition Findings: Nutrition Notes Start: 11/05/18 17:14 Freq: Status: Active Protocol: Document 11/08/18 18:04 RM (Rec: 11/08/18 18:09 [email or web address]) Nutrition Notes Initial or Follow up Reassessment Current Diagnosis COPD,Diabetes,Hypertension, Heart Failure Other Pertinent Diagnosis Schizophrenia, Bipolar Current Diet Cardiac/Consistent CHO Labs/Tests Reviewed Pertinent Medications Reviewed Height 5 ft 3 in Weight 128.8 kg [place] Body Weight (kg) 52.27 BMI 50.3 Subjective/Other Information Pt stated that her appetite is good and that she eats all of her meals. Percent of energy/protein needs met: 100%/100% Burn Absent Trauma Absent #1 Nutrition Diagnosis Inadequate oral intake As Evidenced by Signs and Symptoms pt meeting 100% of calorie and 100% of protein needs Diagnosis Progress(for reassessment Resolved documentation) Is patient on ventilator? Yes Is Patient Ambulatory and/or Out of Bed No REE-([facility]-confined to bed) 2232.192 Kcal/Kg value to use for calculation 14 Approximate Energy Requirements Using 1803 kcal/Kg Calculation Used for Recommendations Kcal/kg Additional Notes Protein Needs: 73-91g (0.8-1g/ kg) 91 kg adjBW) Fluid Needs: 1 ml/kcal Nutrition Intervention Change Diet Order: Continue current Goal #1 Continue to meet at least 75% of calorie and protein needs via PO and ONS intakes Anticipated Discharge Needs: Cardiac/Consistent CHO Revisit per MD consult or patient Sign Off request:
--- NOTE | 2018-11-11 17:34 | Progress Note ---
Assessment and Plan s/p Cardiopulmonary arrest Acute on chronic hypoxemic respiratory failure on MVS AE-COPD Hypertension Type 2 Diabetes mellitus Bipolar disorder Schizophrenia Chronic pain Subjective Date of service: 11/11/18 Principal diagnosis: Acute resp failure and Copd exacerbation Interval history: Patient is seen today for: Seen and examined at bedside; 24hour events reviewed; nursing and respiratory care staff consulted; no adverse overnight events reported to me; Objective Vital Signs - 12hr 11/11/18 11/11/18 11/11/18 08:15 12:00 12:35 Temperature 98.2 F 98.3 F Pulse Rate 59 L 68 68 Pulse Rate [ Anterior Bilateral Throughout] Respiratory 20 20 Rate Respiratory Rate [Anterior Bilateral Throughout] Blood Pressure 154/71 156/85 O2 Sat by Pulse 94 96 Oximetry 11/11/18 11/11/18 15:00 15:15 Temperature Pulse Rate Pulse Rate [ 82 77 Anterior Bilateral Throughout] Respiratory Rate Respiratory 18 18 Rate [Anterior Bilateral Throughout] Blood Pressure O2 Sat by Pulse 93 Oximetry Constitutional: no acute distress, alert, other (Morbidley Obese.) Eyes: non-icteric ENT: oropharynx moist Neck: supple, no lymphadenopathy Ascultation: Bilateral: diminished breath sounds (At the bases.), other (Prolonged expiratory phase.) Cardiovascular: regular rate and rhythm Gastrointestinal: normoactive bowel sounds, soft, non-tender, other (Obese.) Integumentary: normal Extremities: no cyanosis, no edema Neurologic: normal mental status, non-focal exam, pupils equal and round, CN II- XII normal Psychiatric: mood appropriate CBC and BMP: 11/11/18 05:24 11/11/18 05:24 ABG, PT/INR, D-dimer: ABG POC ABG pH 7.333 (7.35-7.45) L 11/07/18 15:33 POC ABG pCO2 48.0 (35-45) H 11/07/18 15:33 POC ABG pO2 79 (80-105) L 11/07/18 15:33 POC ABG HCO3 25.5 (22-26 mml/L) 11/07/18 15:33 POC ABG Total CO2 27 (23-27mmol/L) 11/07/18 15:33 POC ABG O2 Sat 95 11/07/18 15:33 PT/INR, D-dimer 1905.84 ng/mlDDU (0-234) H 11/05/18 14:38 Abnormal lab findings: Abnormal Labs 11/05/18 11/05/18 11/05/18 02:30 02:30 02:51 WBC Hgb 14.5 H MCHC 36 H Seg Neuts % (Manual) Lymphocytes % (Manual) Seg Neutrophils # [place] D-Dimer POC ABG pH 7.322 L POC ABG pCO2 55.5 H POC ABG pO2 Sodium Potassium Chloride Carbon Dioxide 31 H BUN 6 L Creatinine Glucose POC Glucose Calcium 11/05/18 11/05/18 11/05/18 10:05 11:02 11:54 WBC Hgb MCHC Seg Neuts % (Manual) Lymphocytes % (Manual) Seg Neutrophils # [place] D-Dimer POC ABG pH 7.137 L POC ABG pCO2 POC ABG pO2 Sodium Potassium Chloride Carbon Dioxide BUN Creatinine Glucose POC Glucose 171 H 165 H Calcium 11/05/18 11/05/18 11/05/18 12:29 14:24 14:38 WBC Hgb MCHC Seg Neuts % (Manual) Lymphocytes % (Manual) Seg Neutrophils # [place] D-Dimer 1905.84 H POC ABG pH POC ABG pCO2 POC ABG pO2 75 L Sodium Potassium Chloride Carbon Dioxide BUN Creatinine Glucose POC Glucose 212 H Calcium 11/05/18 11/06/18 11/06/18 21:15 04:07 04:07 WBC 12.4 H Hgb MCHC Seg Neuts % (Manual) 84.0 H Lymphocytes % (Manual) 10.0 L Seg Neutrophils # [place] 10.4 H D-Dimer POC ABG pH POC ABG pCO2 POC ABG pO2 Sodium Potassium Chloride Carbon Dioxide BUN Creatinine Glucose 190 H POC Glucose 212 H Calcium 11/06/18 11/06/18 11/06/18 04:21 07:36 07:42 WBC Hgb MCHC Seg Neuts % (Manual) Lymphocytes % (Manual) Seg Neutrophils # [place] D-Dimer POC ABG pH POC ABG pCO2 POC ABG pO2 66 L Sodium Potassium Chloride Carbon Dioxide BUN Creatinine Glucose 198 H POC Glucose 197 H Calcium 11/06/18 11/06/18 11/06/18 09:25 11:47 15:22 WBC Hgb MCHC Seg Neuts % (Manual) Lymphocytes % (Manual) Seg Neutrophils # [place] D-Dimer POC ABG pH POC ABG pCO2 POC ABG pO2 Sodium Potassium Chloride Carbon Dioxide BUN Creatinine Glucose POC Glucose 190 H 188 H 190 H Calcium 11/06/18 11/07/18 11/07/18 23:05 05:51 13:06 WBC Hgb MCHC Seg Neuts % (Manual) Lymphocytes % (Manual) Seg Neutrophils # [place] D-Dimer POC ABG pH POC ABG pCO2 POC ABG pO2 Sodium Potassium Chloride Carbon Dioxide BUN Creatinine Glucose POC Glucose 287 H 228 H 260 H Calcium 11/07/18 11/08/18 11/08/18 15:33 01:10 05:51 WBC Hgb MCHC Seg Neuts % (Manual) Lymphocytes % (Manual) Seg Neutrophils # [place] D-Dimer POC ABG pH 7.333 L POC ABG pCO2 48.0 H POC ABG pO2 79 L Sodium Potassium Chloride Carbon Dioxide BUN Creatinine Glucose POC Glucose 368 H 280 H Calcium 11/08/18 11/08/18 11/08/18 05:55 05:55 11:30 WBC 13.1 H Hgb MCHC Seg Neuts % (Manual) Lymphocytes % (Manual) Seg Neutrophils # [place] D-Dimer POC ABG pH POC ABG pCO2 POC ABG pO2 Sodium 136 L Potassium 5.1 H Chloride 97.8 L Carbon Dioxide BUN 20 H Creatinine Glucose 260 H POC Glucose 280 H Calcium 10.3 H 11/08/18 11/09/18 11/09/18 16:37 00:32 06:34 WBC Hgb MCHC Seg Neuts % (Manual) Lymphocytes % (Manual) Seg Neutrophils # [place] D-Dimer POC ABG pH POC ABG pCO2 POC ABG pO2 Sodium Potassium Chloride Carbon Dioxide BUN Creatinine Glucose POC Glucose 346 H 359 H 342 H Calcium 11/09/18 11/09/18 11/09/18 12:39 18:22 23:27 WBC Hgb MCHC Seg Neuts % (Manual) Lymphocytes % (Manual) Seg Neutrophils # Man D-Dimer POC ABG pH POC ABG pCO2 POC ABG pO2 Sodium Potassium Chloride Carbon Dioxide BUN Creatinine Glucose POC Glucose 333 H 406 H 361 H Calcium 11/10/18 11/10/18 11/10/18 04:27 06:08 12:17 WBC Hgb MCHC Seg Neuts % (Manual) Lymphocytes % (Manual) Seg Neutrophils # Man D-Dimer POC ABG pH POC ABG pCO2 POC ABG pO2 Sodium 136 L Potassium Chloride 94.8 L Carbon Dioxide BUN 21 H Creatinine Glucose 322 H POC Glucose 265 H 347 H Calcium 11/10/18 11/10/18 11/11/18 18:12 23:34 05:24 WBC Hgb MCHC Seg Neuts % (Manual) Lymphocytes % (Manual) Seg Neutrophils # Man D-Dimer POC ABG pH POC ABG pCO2 POC ABG pO2 Sodium 136 L Potassium 5.6 H Chloride 93.5 L Carbon Dioxide 32 H BUN 20 H Creatinine 0.6 L Glucose 386 H POC Glucose 389 H 357 H Calcium 10.4 H 11/11/18 11/11/18 06:25 11:51 WBC Hgb MCHC Seg Neuts % (Manual) Lymphocytes % (Manual) Seg Neutrophils # Man D-Dimer POC ABG pH POC ABG pCO2 POC ABG pO2 Sodium Potassium Chloride Carbon Dioxide BUN Creatinine Glucose POC Glucose 324 H 276 H Calcium
== END 2018-11-11 18:25 | disposition home health service (06) | DRG 208 ==
LOC: ED 01:43 → 4A 05:23 → CC1 11:09 → 4A 11-06 16:26
PROVIDERS: ADMIT Internal Medicine; ATTEND Internal Medicine
PROC: 5A1935Z Respiratory Ventilation, Less than 24 Consecutive Hours (ICD-10-PCS; principal; 2018-11-05)
PROC: 4A033R1 Measurement of Arterial Saturation, Peripheral, Percutaneous Approach (ICD-10-PCS; 2018-11-05)
PROC: 0BH17EZ Insertion of Endotracheal Airway into Trachea, Via Natural or Artificial Opening (ICD-10-PCS; 2018-11-05)
PROC: 5A12012 Performance of Cardiac Output, Single, Manual (ICD-10-PCS; 2018-11-05)
PROC: 0BP1XDZ Removal of Intraluminal Device from Trachea, External Approach (ICD-10-PCS; 2018-11-06)
PROC: 5A09357 Assistance with Respiratory Ventilation, Less than 24 Consecutive Hours, Continuous Positive Airway Pressure (ICD-10-PCS; 2018-11-07)
PROC: 5A09357 Assistance with Respiratory Ventilation, Less than 24 Consecutive Hours, Continuous Positive Airway Pressure (ICD-10-PCS; 2018-11-08)
PROC: 5A09357 Assistance with Respiratory Ventilation, Less than 24 Consecutive Hours, Continuous Positive Airway Pressure (ICD-10-PCS; 2018-11-11)
DX: J96.21 Acute and chronic respiratory failure with hypoxia (principal); I46.9 Cardiac arrest, cause unspecified; G92 Toxic encephalopathy; S22.31XA Fracture of one rib, right side, initial encounter for closed fracture; J44.1 Chronic obstructive pulmonary disease with (acute) exacerbation; Z68.43 Body mass index [BMI] 50.0-59.9, adult; E66.2 Morbid (severe) obesity with alveolar hypoventilation; F17.213 Nicotine dependence, cigarettes, with withdrawal; J98.11 Atelectasis; I50.9 Heart failure, unspecified; M19.90 Unspecified osteoarthritis, unspecified site; I11.0 Hypertensive heart disease with heart failure; G89.4 Chronic pain syndrome; E87.5 Hyperkalemia; F17.210 Nicotine dependence, cigarettes, uncomplicated; E11.65 Type 2 diabetes mellitus with hyperglycemia; X58.XXXA Exposure to other specified factors, initial encounter; Y93.89 Activity, other specified; Y92.89 Other specified places as the place of occurrence of the external cause; Y99.8 Other external cause status; Z99.81 Dependence on supplemental oxygen; Z88.0 Allergy status to penicillin; Z90.710 Acquired absence of both cervix and uterus; Z88.8 Allergy status to other drugs, medicaments and biological substances
CPT/HCPCS: 36415; 36600; 71045; 71275; 74018; 80048; 82803; 82962; 85007; 85025; 85027; 85379; 87070; 87205; 93005; 93010; 94002; 94003; 94640; 94660; 94760; 99406; G0378; J0153; J0171; J0461; J0692; J1650; J1815; J1956; J2060; J2704; J2930; J3010; J3475; Q9967

== ENCOUNTER 2018-11-17 11:50 | Emergency (ER) | payer MEDICARE ==
[2018-11-17] MEDS ORDERED: PROVENTIL IH ONE (12:51)
[2018-11-17] MEDS ORDERED: MORPHINE IV ONE (12:51)
[2018-11-17] MEDS ORDERED: ATROVENT IH ONE (12:51)
[2018-11-17] MEDS ORDERED: SOLU-Medrol IV ONE (12:53)
[2018-11-17] MEDS ORDERED: TORADOL IV ONE (12:53)
--- NOTE | 2018-11-17 12:54 | Emergency Department Report ---
ED General Adult HPI - General Chief complaint: Dyspnea/Respdistress Stated complaint: ANN Time Seen by Provider: 11/17/18 12:42 Source: patient, EMS (ems notes not available at time of chart dictation), RN notes reviewed, old records reviewed Mode of arrival: Stretcher Limitations: Physical Limitation - History of Present Illness Initial comments: Front Desk Clerk: Dr. Corbin This is a 54-year-old female. Past medical history includes hypertension, diabetes, chronic respiratory failure on home oxygen, end-stage COPD, congestive heart failure, bipolar, schizophrenia, chronic pain syndrome. Patient admitted to this hospital October 2018 for respiratory failure. Patient was resuscitated as a CODE BLUE, had CPR performed, had a CAT scan of her chest showed rib fractures on the right side third through fifth ribs. She was discharged after an appr opriate convalescence. Today, she presents to the ER with a complaint of chronic right-sided chest wall pain since receiving CPR. Pain is sharp, increases with palpation, and it decreases with rest and pain medication. She endorses chronic cough, chronic shortness of breath, chronic wheezing. She makes no complaint of headache, neck pain, ocular pain, dental. She has no vomiting at this time, but has endorses nausea in the past. She denies urinary symptoms. She has chronic lower extremity swelling which is not new, worsening or different. In the emergency room, she is given pain medication, albuterol, Atrovent, steroids, and given an incentive spirometer. All of these interventions improved her symptoms. -: Gradual, week(s) Location: chest Radiation: non-radiation Severity scale (0 -10): 0 Quality: aching Consistency: other Improves with: other Worsens with: other - Related Data Home Medications Medication Instructions Recorded Confirmed Last Taken Escitalopram Oxalate [Lexapro] 20 mg PO QDAY 09/14/18 11/10/18 11/10/18 09:10 LORazepam [Ativan] 1 mg PO Q12H 09/14/18 11/10/18 11/10/18 09:10 Omeprazole 20 mg PO QDAY 09/14/18 11/10/18 11/10/18 09:10 Previous Rx's Medication Instructions Recorded Last Taken Type Insulin Aspart Protam & Aspart 15 units SUB-Q TID 30 Days 07/30/18 11/10/18 06:00 Rx [NovoLOG Mix 70-30 Flexpen] insuln.pen Lisinopril 20 mg PO DAILY #30 tablet 07/30/18 11/10/18 09:10 Rx Loratadine [Claritin] 10 mg PO QDAY #10 tablet 07/30/18 11/10/18 09:10 Rx ALBUTEROL Inhaler(NF) [VENTOLIN 2 puff IH Q4H PRN #1 can 09/17/18 11/10/18 09:10 Rx Inhaler(NF)] ALBUTEROL NEB's [Proventil 0.083% 2.5 mg IH QID PRN #60 nebu 09/17/18 11/10/18 Rx NEBS] Budesonide/Formoterol Fumarate 1 puff IH BID #60 hfa.aer.ad 09/17/18 11/10/18 Rx [Symbicort 160-4.5 Mcg Inhaler] guaiFENesin [Robitussin] 200 mg PO Q4H PRN #1 bottle 09/17/18 11/10/18 Rx Ipratropium/Albuterol Sulfate 1 ampul IH Q6HRT PRN #30 ampul.neb 11/11/18 Unknown Rx [DUONEB *Not for PRN Use*] LORazepam [Ativan] 0.5 mg PO BID PRN #10 tab 11/11/18 Unknown Rx Oxycodone HCl/Acetaminophen 1 each PO Q6HR PRN #20 tablet 11/11/18 Unknown Rx [Percocet 10/325 mg] levoFLOXacin [Levaquin] 750 mg PO QDAY #3 tablet 11/11/18 Unknown Rx methylPREDNISolone [Medrol 4MG 1 dose PO DAILY #1 tab.ds.pk 11/11/18 Unknown Rx DOSEPAK (21 tabs)] Acetaminophen [Non-Aspirin Extra 500 mg PO Q6HR PRN #30 tablet 11/17/18 Unknown Rx Strength] Albuterol Sulfate [Proair 90 mcg IH Q4HR PRN #2 aer.pow.ba 11/17/18 Unknown Rx Respiclick] Ibuprofen [Motrin] 600 mg PO Q8H PRN #30 tablet 11/17/18 Unknown Rx Ipratropium (Nf) [Atrovent] 2 puff IH Q6HR PRN #1 inha 11/17/18 Unknown Rx oxyCODONE [Roxicodone] 5 mg PO Q6HR PRN #15 tablet 11/17/18 Unknown Rx predniSONE [Deltasone] 40 mg PO QDAY #8 tab 11/17/18 Unknown Rx Allergies Allergy/AdvReac Type Severity Reaction Status Date / Time Penicillins Allergy Angioedema Verified 09/14/18 13:55 prednisone Allergy Unknown Verified 09/14/18 13:55 bupropion HCl AdvReac Unknown Verified 09/14/18 13:55 [From Wellbutrin] divalproex sodium AdvReac Unknown Verified 09/14/18 13:55 [From Depakote] fluoxetine HCl [From Prozac] AdvReac Unknown Verified 09/14/18 13:55 lithium AdvReac Unknown Verified 09/14/18 13:55 ED Review of Systems ROS: Stated complaint: ANN Other details as noted in HPI Constitutional: malaise Eyes: denies: eye discharge ENT: congestion Respiratory: shortness of breath, wheezing Cardiovascular: edema Gastrointestinal: nausea Musculoskeletal: arthralgia, myalgia Skin: denies: lesions Neurological: weakness Psychiatric: anxiety ED Past Medical Hx - Past Medical History Previous Medical History?: Yes Hx Hypertension: Yes Hx Heart Attack/AMI: No Hx Congestive Heart Failure: Yes Hx Diabetes: Yes Hx Deep Vein Thrombosis: No Hx Pulmonary Embolism: No Hx Liver Disease: No Hx Arthritis: Yes Hx Psychiatric Treatment: Yes (Bipolar, Schzioaffective) Hx Asthma: Yes Hx COPD: Yes Hx Tuberculosis: No Additional medical history: Bronchitis, Home O2 2 liters, Morbid Obesity, - Surgical History Past Surgical History?: Yes Hx Coronary Stent: No Hx Pacemaker: No Hx Internal Defibrillator: No Additional Surgical History: spinal fusion, left hip, Hysterectomy - Social History Smoking Status: Current Every Day Smoker Substance Use Type: Marijuana, Prescribed - Medications Home Medications: Home Medications Medication Instructions Recorded Confirmed Last Taken Type Insulin Aspart Protam & Aspart 15 units SUB-Q TID 30 Days 07/30/18 11/10/18 11/10/18 06:00 Rx [NovoLOG Mix 70-30 Flexpen] insuln.pen Lisinopril 20 mg PO DAILY #30 tablet 07/30/18 11/10/18 11/10/18 09:10 Rx Loratadine [Claritin] 10 mg PO QDAY #10 tablet 07/30/18 11/10/18 11/10/18 09:10 Rx Escitalopram Oxalate [Lexapro] 20 mg PO QDAY 09/14/18 11/10/18 11/10/18 09:10 History LORazepam [Ativan] 1 mg PO Q12H 09/14/18 11/10/18 11/10/18 09:10 History Omeprazole 20 mg PO QDAY 09/14/18 11/10/18 11/10/18 09:10 History ALBUTEROL Inhaler(NF) [VENTOLIN 2 puff IH Q4H PRN #1 can 09/17/18 11/10/18 11/10/18 09:10 Rx Inhaler(NF)] ALBUTEROL NEB's [Proventil 0.083% 2.5 mg IH QID PRN #60 nebu 09/17/18 11/10/18 11/10/18 Rx NEBS] Budesonide/Formoterol Fumarate 1 puff IH BID #60 hfa.aer.ad 09/17/18 11/10/18 11/10/18 Rx [Symbicort 160-4.5 Mcg Inhaler] guaiFENesin [Robitussin] 200 mg PO Q4H PRN #1 bottle 09/17/18 11/10/18 11/10/18 Rx Ipratropium/Albuterol Sulfate 1 ampul IH Q6HRT PRN #30 ampul.neb 11/11/18 Unknown Rx [DUONEB *Not for PRN Use*] LORazepam [Ativan] 0.5 mg PO BID PRN #10 tab 11/11/18 Unknown Rx Oxycodone HCl/Acetaminophen 1 each PO Q6HR PRN #20 tablet 11/11/18 Unknown Rx [Percocet 10/325 mg] levoFLOXacin [Levaquin] 750 mg PO QDAY #3 tablet 11/11/18 Unknown Rx methylPREDNISolone [Medrol 4MG 1 dose PO DAILY #1 tab.ds.pk 11/11/18 Unknown Rx DOSEPAK (21 tabs)] Acetaminophen [Non-Aspirin Extra 500 mg PO Q6HR PRN #30 tablet 11/17/18 Unknown Rx Strength] Albuterol Sulfate [Proair 90 mcg IH Q4HR PRN #2 aer.pow.ba 11/17/18 Unknown Rx Respiclick] Ibuprofen [Motrin] 600 mg PO Q8H PRN #30 tablet 11/17/18 Unknown Rx Ipratropium (Nf) [Atrovent] 2 puff IH Q6HR PRN #1 inha 11/17/18 Unknown Rx oxyCODONE [Roxicodone] 5 mg PO Q6HR PRN #15 tablet 11/17/18 Unknown Rx predniSONE [Deltasone] 40 mg PO QDAY #8 tab 11/17/18 Unknown Rx ED Physical Exam - General Limitations: Physical Limitation General appearance: alert, in distress, obese - Head Head exam: Present: atraumatic, normocephalic - Eye Eye exam: Present: normal appearance - ENT ENT exam: Present: normal exam, normal orophraynx, mucous membranes moist, normal external ear exam - Neck Neck exam: Present: normal inspection, full ROM. Absent: tenderness, meningismus - Respiratory Respiratory exam: Present: wheezes, rhonchi, chest wall tenderness, other (reproducible chest wall tenderness. There is no crepitus.). Absent: respiratory distress - Cardiovascular Cardiovascular Exam: Present: regular rate, normal rhythm, normal heart sounds. Absent: bradycardia, tachycardia, irregular rhythm, systolic murmur, diastolic murmur, rubs, gallop - GI/Abdominal GI/Abdominal exam: Present: soft. Absent: distended, tenderness, guarding, rebound, rigid, pulsatile mass - Extremities Exam Extremities exam: Present: normal inspection, full ROM, pedal edema, other (2+ pulses noted in the bilateral upper, lower extremities. Compartments soft. No long bony tenderness. The pelvis is stable.). Absent: calf tenderness - Back Exam Back exam: Present: normal inspection, full ROM. Absent: tenderness, CVA tenderness (R), CVA tenderness (L) - Neurological Exam Neurological exam: Present: alert, other (Extraocular movements intact. Tongue midline. No facial droop. Facial sensation intact to light touch in the V1, V2, V3 distribution bilaterally. 5 and 5 strength in 4 extremities.. Sensation is intact to light touch in 4 extremities.). Absent: motor sensory deficit - Psychiatric Psychiatric exam: Present: anxious - Skin Skin exam: Present: warm, dry, intact, normal color. Absent: rash ED Course Vital Signs 11/17/18 11/17/18 11/17/18 12:09 12:14 12:20 Temperature 99.3 F Pulse Rate 74 77 Pulse Rate [ Anterior Bilateral] Respiratory 19 19 19 Rate Respiratory Rate [Anterior Bilateral] Blood Pressure 153/67 O2 Sat by Pulse 95 95 Oximetry 11/17/18 11/17/18 11/17/18 12:30 13:01 13:04 Temperature Pulse Rate 72 71 Pulse Rate [ 70 Anterior Bilateral] Respiratory 21 18 Rate Respiratory 20 Rate [Anterior Bilateral] Blood Pressure 163/97 169/83 O2 Sat by Pulse 90 91 Oximetry 11/17/18 11/17/18 11/17/18 13:31 14:00 15:13 Temperature Pulse Rate 74 72 Pulse Rate [ Anterior Bilateral] Respiratory 22 13 Rate Respiratory Rate [Anterior Bilateral] Blood Pressure 169/83 134/80 134/80 O2 Sat by Pulse 99 97 88 Oximetry 11/17/18 16:05 Temperature Pulse Rate Pulse Rate [ 91 H Anterior Bilateral] Respiratory Rate Respiratory 18 Rate [Anterior Bilateral] Blood Pressure O2 Sat by Pulse Oximetry ED Medical Decision Making - Lab Data Result diagrams: 11/17/18 13:19 11/17/18 13:19 Vital Signs 11/17/18 11/17/18 12:14 12:20 Temperature 99.3 F Pulse Rate 77 Respiratory 19 19 Rate Blood Pressure 153/67 O2 Sat by Pulse 95 95 Oximetry Vital Signs 11/17/18 11/17/18 11/17/18 12:09 12:14 12:20 Temperature 99.3 F Pulse Rate 74 77 Pulse Rate [ Anterior Bilateral] Respiratory 19 19 19 Rate Respiratory Rate [Anterior Bilateral] Blood Pressure 153/67 O2 Sat by Pulse 95 95 Oximetry 11/17/18 11/17/18 11/17/18 12:30 13:01 13:04 Temperature Pulse Rate 72 71 Pulse Rate [ 70 Anterior Bilateral] Respiratory 21 18 Rate Respiratory 20 Rate [Anterior Bilateral] Blood Pressure 163/97 169/83 O2 Sat by Pulse 90 91 Oximetry 11/17/18 11/17/18 11/17/18 13:31 14:00 15:13 Temperature Pulse Rate 74 72 Pulse Rate [ Anterior Bilateral] Respiratory 22 13 Rate Respiratory Rate [Anterior Bilateral] Blood Pressure 169/83 134/80 134/80 O2 Sat by Pulse 99 97 88 Oximetry 11/17/18 16:05 Temperature Pulse Rate Pulse Rate [ 91 H Anterior Bilateral] Respiratory Rate Respiratory 18 Rate [Anterior Bilateral] Blood Pressure O2 Sat by Pulse Oximetry Lab Results 11/17/18 11/17/18 11/17/18 Range/Units 13:19 13:19 13:19 WBC 10.9 (4.5-11.0) K/mm3 RBC 4.56 (3.65-5.03) M/mm3 Hgb 13.6 (10.1-14.3) gm/dl Hct 40.0 (30.3-42.9) % MCV 88 (79-97) fl MCH 30 (28-32) pg MCHC 34 (30-34) % RDW 14.8 (13.2-15.2) % Plt Count 321 (140-440) K/mm3 PT 13.1 (12.2-14.9) Sec. INR 1.02 (0.87-1.13) Sodium 140 (137-145) mmol/L Potassium 4.0 (3.6-5.0) mmol/L Chloride 101.8 (98-107) mmol/L Carbon Dioxide 29 (22-30) mmol/L Anion Gap 13 mmol/L BUN 9 (7-17) mg/dL Creatinine 0.7 (0.7-1.2) mg/dL Estimated GFR > 60 ml/min BUN/Creatinine Ratio 13 % Glucose 89 (65-100) mg/dL Calcium 9.6 (8.4-10.2) mg/dL Magnesium (1.7-2.3) mg/dL Troponin T < 0.010 (0.00-0.029) ng/mL 11/17/18 Range/Units 13:19 WBC (4.5-11.0) K/mm3 RBC (3.65-5.03) M/mm3 Hgb (10.1-14.3) gm/dl Hct (30.3-42.9) % MCV (79-97) fl MCH (28-32) pg MCHC (30-34) % RDW (13.2-15.2) % Plt Count (140-440) K/mm3 PT (12.2-14.9) Sec. INR (0.87-1.13) Sodium (137-145) mmol/L Potassium (3.6-5.0) mmol/L Chloride (98-107) mmol/L Carbon Dioxide (22-30) mmol/L Anion Gap mmol/L BUN (7-17) mg/dL Creatinine (0.7-1.2) mg/dL Estimated GFR ml/min BUN/Creatinine Ratio % Glucose (65-100) mg/dL Calcium (8.4-10.2) mg/dL Magnesium 2.00 (1.7-2.3) mg/dL Troponin T (0.00-0.029) ng/mL - EKG Data -: EKG Interpreted by Ia EKG shows normal: sinus rhythm Rate: normal - EKG Data When compared to previous EKG there are: no significant change 11/17/18 17:09 This is a sinus rhythm, 71 bpm, normal axis, normal intervals, borderline left ventricular hypertrophy, this EKG is not consistent with ST elevation myocardial infarction. This EKG appears to be grossly unchanged from prior EKG from 11/05/2018, with the exception of resolution of tachycardia, and the resolution of poor R-wave progression. - Radiology Data Radiology results: report reviewed, image reviewed Print Report Referring Physician: ASUNCION MERCADO Patient Name: ERIC WELSH Date of : 1965 Sex: Female Report Date: 2018-11-08 Report Status: Finalized Findings [facility] [address] [place] [address] Cat Scan Report Signed Patient: ERIC WELSH MR#: [id number] : 1965 Acct:[id number] Age/Sex: 53 / F ADM Date: 11/05/18 Loc: 4A A490-[address]: RACHEL RINCON MD Ordering Physician: ASUNCION MERCADO MD Date of Service: 11/08/18 Procedure(s): CT angio chest Accession Number(s): [id number] cc: ASUNCION MERCADO MD PROCEDURE: CT ANGIO CHEST TECHNIQUE: Computerized tomographic angiography of the chest was performed after the IV injection of iodinated nonionic contrast including image processing. The image data was postprocessed using 2-dimensional multiplanar reformatted (MPR) and 3-dimensional (MIP and/or volume rendered) techniques. Automated exposure control, adjustment of mA and/or kV according to patient size, or iterative reconstruction dose optimization techniques were utilized. CT DOSE LENGTH PRODUCT: 886.3 mGycm HISTORY: shortness of breath COMPARISONS: CT chest 05/01/18 . FINDINGS: Heart and pericardium: Normal. Thoracic aorta: Normal. Pulmonary vasculature: Normal. No evidence for pulmonary embolism is seen. Lymph nodes: No enlarged thoracic lymph nodes. Lungs: Linear bibasilar atelectasis is noted posteriorly. There is also linear atelectasis in the right middle lobe. Pleural space: No effusion, thickening, or pneumothorax. Musculoskeletal structures: There are recent acute rib fractures involving the anterior right third through fifth ribs.. Severe degenerative disc changes throughout the thoracic spine are noted. Upper abdominal structures: No significant abnormality. IMPRESSION: 1. No evidence for pulmonary embolism 2. Atelectasis in both lower lobes and the right middle lobe 3. Recent acute rib fractures involving the anterior right third through fifth ribs. This document is electronically signed by Lurdes Hernandez MD., November 08 2018 07:41:54 PM ET Transcribed By: [facility] Dictated By: LURDES HERNANDEZ MD Electronically Authenticated By: LURDES HERNANDEZ MD Signed Date/Time: 11/10/18 1523 DVT study negative for acute DVT - Medical Decision Making Differential diagnosis, including but not limited to, pneumonia, costochondritis, natural history of rib fractures COPD exacerbation, Assessment and plan: Assessment and plan: 53-year-old female who is status post CPR approximately 2 weeks ago, with return of spontaneous circulation, CT scan afterwards confirms rib fractures without evidence of pulmonary embolism, patient presents with a complaint of reproducible chest wall pain present for weeks. Her EKG today is unremarkable, troponin negative 1, given weeks of symptoms, acute coronary syndrome is unlikely. No DVT noted in her lower extremities, wheezing improved, pain improved, patient will be discharged with pain medication, albuterol, Atrovent, steroids, instructions to use incentive spirometer. The patient most likely expressing natural history of rib fractures, and chronic COPD. Critical care attestation.: If time is entered above; I have spent that time in minutes in the direct care of this critically ill patient, excluding procedure time. ED Disposition Clinical Impression: COPD exacerbation Right rib fracture Qualifiers: Encounter type: subsequent encounter Rib fracture type: multiple ribs Fracture type: closed Fracture healing: with routine healing Qualified Code(s): S22.41XD - Multiple fractures of ribs, right side, subsequent encounter for fracture with routine healing Chronic pain Qualifiers: Chronic pain type: other chronic pain Qualified Code(s): G89.29 - Other chronic pain Disposition: DC-01 TO HOME OR SELFCARE Is pt being admited?: No Does the pt Need Aspirin: No Condition: Stable Instructions: Chronic Bronchitis (ED) Additional Instructions: Continue current outpatient medications. 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 Patient has multiple rib fractures from CPR approximately 2 weeks ago. Patient is experiencing the natural unexpected history and progression of rib fractures, especially with her underlying COPD. Pain will typically take a few weeks to improve. Take the pain medications as needed/directed. Use the incentive spirometer once every hour, as instructed by respiratory therapy. Return to the emergency room right away with new, worsened or different symptoms, or symptoms not present on initial emergency room evaluation. Referrals: PRIYANK GARCIA MD [Primary Care Provider] - 3-5 Days CAROLE ESTRADA MD [Staff Physician] - 3-5 Days
[2018-11-17] MEDS ORDERED: ZOFRAN ODT PO PRN (13:04)
[2018-11-17 13:44] LABS: Hemoglobin 13.6 gm/dl (10.1-14.3); Mean Corpuscular HGB Conc 34 % (30-34); Mean Corpuscular Volume 88 fl (79-97); Platelet Count 321 K/mm3 (140-440); Red Blood Count 4.56 M/mm3 (3.65-5.03); Red Cell Distribution Width 14.8 % (13.2-15.2)
--- NOTE | 2018-11-17 13:47 | XRay Report ---
AP CHEST: HISTORY: chest pain AP view of the chest demonstrates a normal mediastinal and cardiac contour with clear lungs and normal bony and soft tissue structures. IMPRESSION: No acute process noted.
[2018-11-17 13:53] LABS: BUN/Creatinine Ratio 13; Blood Urea Nitrogen 9 mg/dL (7-17); Calcium 9.6 mg/dL (8.4-10.2); Hemolysis Index 12
[2018-11-17 13:56] LABS: INR 1.02 (0.87-1.13)
[2018-11-17 14:09] VITALS: BP 134/80
--- NOTE | 2018-11-17 15:09 | Vascular Lab Report ---
PROCEDURE: US BILATERAL LOWER EXTREMITY VENOUS DUPLEX DOPPLER TECHNIQUE: Duplex Doppler ultrasound of the BILATERAL common and superficial femoral, popliteal, pos terior tibial and proximal deep femoral and greater saphenous veins was attempted. Carrillo scale imaging with and without compression, spectral waveform analysis with and without augmentation, and color fl ow Doppler were employed. CPT 98847 HISTORY: Bilateral lower extremity swelling. Evaluate for DVT COMPARISONS: None . FINDINGS: RIGHT LOWER EXTREMITY: Deep Venous Thrombus: None . Superficial Venous Thrombus: None . Venous valvular incompetence: None . Soft tissue abnormality: None . Other: There is a very small oval fluid collection right popliteal fossa measuring 1.7 x 0.8 cm whic h may represent a small popliteal cyst. . LEFT LOWER EXTREMITY: Deep Venous Thrombus: None . Superficial Venous Thrombus: None . Venous valvular incompetence: None . Soft tissue abnormality: None . Other: None . IMPRESSION: No evidence of deep venous thrombosis . Possible small right popliteal cyst. This document is electronically signed by Se Pardo MD., November 17 2018 03:06:49 PM ET
== END 2018-11-17 18:36 | disposition home or self-care (01) ==
LOC: ED 11:50
DX: J44.1 Chronic obstructive pulmonary disease with (acute) exacerbation (principal); S22.41XD Multiple fractures of ribs, right side, subsequent encounter for fracture with routine healing; G89.29 Other chronic pain; F31.9 Bipolar disorder, unspecified; F25.9 Schizoaffective disorder, unspecified; M19.90 Unspecified osteoarthritis, unspecified site; I11.0 Hypertensive heart disease with heart failure; I50.9 Heart failure, unspecified; E11.9 Type 2 diabetes mellitus without complications; F41.9 Anxiety disorder, unspecified; F17.200 Nicotine dependence, unspecified, uncomplicated; F12.10 Cannabis abuse, uncomplicated; E66.01 Morbid (severe) obesity due to excess calories; Z68.43 Body mass index [BMI] 50.0-59.9, adult; Z88.0 Allergy status to penicillin; Z88.5 Allergy status to narcotic agent; Z88.8 Allergy status to other drugs, medicaments and biological substances; Z86.711 Personal history of pulmonary embolism; Z79.1 Long term (current) use of non-steroidal anti-inflammatories (NSAID); Z79.4 Long term (current) use of insulin; Z79.899 Other long term (current) drug therapy; Z90.710 Acquired absence of both cervix and uterus; X58.XXXD Exposure to other specified factors, subsequent encounter
CPT/HCPCS: 36415; 71045; 80048; 83735; 84484; 85027; 85610; 93005; 93010; 93970; 94644; 94645; 96374; 96375; 99285; J1885; J2270; J2930; Q0162

== ENCOUNTER 2019-01-03 08:52 | Inpatient (IN) | payer MEDICARE ==
[2019-01-03] MEDS ORDERED: MAGNESIUM SULFATE 2GM/50ML 2 GM/50 ML BAG IV ONE (09:57)
[2019-01-03] MEDS ORDERED: SOLU-Medrol IV ONE (09:57)
[2019-01-03] MEDS ORDERED: PROVENTIL IH ONE (09:58)
[2019-01-03] MEDS ORDERED: ATROVENT IH ONE (09:58)
[2019-01-03] MEDS ORDERED: TESSALON PERLES PO ONE (09:59)
[2019-01-03 10:00] LABS: Basophils # (Auto) 0.1 K/mm3 (0.0-0.1); Basophils % (Auto) 1.1 % (0.0-1.8); Eosinophils # (Auto) 0.5 K/mm3 (0.0-0.4); Eosinophils % (Auto) 6.5 % (0.0-4.3); Lymphocytes # (Auto) 1.6 K/mm3 (1.2-5.4); Lymphocytes % (Auto) 20.7 % (13.4-35.0); Mean Corpuscular HGB Conc 33 % (30-34); Mean Corpuscular Volume 89 fl (79-97); Monocytes # (Auto) 0.4 K/mm3 (0.0-0.8); Monocytes % (Auto) 5.6 % (0.0-7.3); Platelet Count 264 K/mm3 (140-440); Red Blood Count 4.81 M/mm3 (3.65-5.03); Red Cell Distribution Width 15.8 % (13.2-15.2)
[2019-01-03 10:10] LABS: INR 0.94 (0.87-1.13)
[2019-01-03 10:21] LABS: Alanine Aminotransferase 10 units/L (7-56); Albumin 3.8 g/dL (3.9-5); BUN/Creatinine Ratio 14; Blood Urea Nitrogen 10 mg/dL (7-17); Calcium 9.7 mg/dL (8.4-10.2); Hemolysis Index 18
--- NOTE | 2019-01-03 10:35 | XRay Report ---
CHEST 1 VIEW INDICATION: Dyspnea. COMPARISON: 11/17/2018 FINDINGS: Support devices: None. Heart: Within normal limits. Lungs/Pleura: No acute air space or interstitial disease. Additional findings: None. IMPRESSION: No acute findings. Signer Name: Blaine Peter Jr, MD Signed: 01/03/2019 10:31 AM Workstation Name: [id number]
--- NOTE | 2019-01-03 10:52 | Emergency Department Report ---
ED Shortness of Breath HPI - General Chief Complaint: Dyspnea/Respdistress Stated Complaint: ANN Time Seen by Provider: 01/03/19 09:53 Source: patient Mode of arrival: Ambulatory Limitations: No Limitations - History of Present Illness Initial Comments: 53-year-old female with a past medical history obesity, CHF, COPD with 2 L home oxygen use, sleep apnea, asthma, diabetes, and hypertension presents to the Hospital complains of shortness of breath progressively worsening for the past 3 days. No improvement with home nebulizer treatments. Patient does have sleep apnea but does not currently have a CPAP machine. In October patient was here and had a cardiac arrest during hospitalization. There is a complaint of cough productive of yellow sputum and generalized chest tightness with asthma/COPD. She denies calf tenderness, leg edema, history of PE/DVT. Patient received a breathing treatment in route. No IV meds were provided by EMS. PMD: Josue Cueva. Certification And Selection Specialist: Dr. Corbin - Related Data Home Medications Medication Instructions Recorded Confirmed Last Taken Escitalopram Oxalate [Lexapro] 20 mg PO QDAY 09/14/18 01/03/19 11/17/18 Omeprazole 20 mg PO QDAY 09/14/18 01/03/19 11/17/18 Insulin Aspart [NovoLOG Flexpen] 15 units SUB-Q TIDAC 11/17/18 01/03/19 11/17/18 Previous Rx's Medication Instructions Recorded Last Taken Type Lisinopril 20 mg PO DAILY #30 tablet 07/30/18 11/17/18 Rx ALBUTEROL NEB's [Proventil 0.083% 2.5 mg IH QID PRN #60 nebu 09/17/18 11/10/18 Rx NEBS] Budesonide/Formoterol Fumarate 1 puff IH BID #60 hfa.aer.ad 09/17/18 11/10/18 Rx [Symbicort 160-4.5 Mcg Inhaler] LORazepam [Ativan] 0.5 mg PO BID PRN #10 tab 11/11/18 Unknown Rx Acetaminophen [Non-Aspirin Extra 500 mg PO Q6HR PRN #30 tablet 11/17/18 Unknown Rx Strength] Albuterol Sulfate [Proair 90 mcg IH Q4HR PRN #2 aer.pow.ba 11/17/18 Unknown Rx Respiclick] Ibuprofen [Motrin] 600 mg PO Q8H PRN #30 tablet 11/17/18 Unknown Rx predniSONE [Deltasone] 40 mg PO QDAY #8 tab 11/17/18 Unknown Rx Allergies Allergy/AdvReac Type Severity Reaction Status Date / Time Penicillins Allergy Angioedema Verified 09/14/18 13:55 prednisone Allergy Unknown Verified 09/14/18 13:55 bupropion HCl AdvReac Unknown Verified 09/14/18 13:55 [From Wellbutrin] divalproex sodium AdvReac Unknown Verified 09/14/18 13:55 [From Depakote] fluoxetine HCl [From Prozac] AdvReac Unknown Verified 09/14/18 13:55 lithium AdvReac Unknown Verified 09/14/18 13:55 ED Review of Systems ROS: Stated complaint: ANN Other details as noted in HPI Comment: All other systems reviewed and negative ED Past Medical Hx - Past Medical History Hx Hypertension: Yes Hx Heart Attack/AMI: No Hx Congestive Heart Failure: Yes Hx Diabetes: Yes Hx Deep Vein Thrombosis: No Hx Pulmonary Embolism: No Hx Liver Disease: No Hx Arthritis: Yes Hx Psychiatric Treatment: Yes (Bipolar, Schzioaffective) Hx Asthma: Yes Hx COPD: Yes Hx Tuberculosis: No Additional medical history: Bronchitis, Home O2 2 liters, Morbid Obesity, - Surgical History Hx Coronary Stent: No Hx Pacemaker: No Hx Internal Defibrillator: No Additional Surgical History: spinal fusion, left hip, Hysterectomy - Social History Smoking Status: Current Every Day Smoker Substance Use Type: None - Medications Home Medications: Home Medications Medication Instructions Recorded Confirmed Last Taken Type Lisinopril 20 mg PO DAILY #30 tablet 07/30/18 01/03/19 11/17/18 Rx Escitalopram Oxalate [Lexapro] 20 mg PO QDAY 09/14/18 01/03/19 11/17/18 History Omeprazole 20 mg PO QDAY 09/14/18 01/03/19 11/17/18 History ALBUTEROL NEB's [Proventil 0.083% 2.5 mg IH QID PRN #60 nebu 09/17/18 01/03/19 11/10/18 Rx NEBS] Budesonide/Formoterol Fumarate 1 puff IH BID #60 hfa.aer.ad 09/17/18 01/03/19 11/10/18 Rx [Symbicort 160-4.5 Mcg Inhaler] LORazepam [Ativan] 0.5 mg PO BID PRN #10 tab 11/11/18 01/03/19 Unknown Rx Acetaminophen [Non-Aspirin Extra 500 mg PO Q6HR PRN #30 tablet 11/17/18 01/03/19 Unknown Rx Strength] Albuterol Sulfate [Proair 90 mcg IH Q4HR PRN #2 aer.pow.ba 11/17/18 01/03/19 Unknown Rx Respiclick] Ibuprofen [Motrin] 600 mg PO Q8H PRN #30 tablet 11/17/18 01/03/19 Unknown Rx Insulin Aspart [NovoLOG Flexpen] 15 units SUB-Q TIDAC 11/17/18 01/03/19 11/17/18 History predniSONE [Deltasone] 40 mg PO QDAY #8 tab 11/17/18 01/03/19 Unknown Rx ED Physical Exam - General Limitations: No Limitations - Other Other exam information: General: No limitations, patient is alert in no acute distress Head exam: Atraumatic, normocephalic Eyes exam: Normal appearance, pupils equal reactive to light, extraocular movements intact ENT: Moist mucous membrane, normal oropharynx Neck exam: Normal inspection, full range of motion, no meningismus nontender Respiratory exam: Tachypnea, bilateral wheezing, moderate accessory muscle use Cardiovascular: Normal rate and rhythm Abdomen: Soft, nondistended, and nontender, with normal bowel sounds, no rebound, or guarding Extremity: Full range of motion normal inspection no deformity, no calf tenderness or leg asymmetry Back: Normal Inspection, full range of motion, no tenderness Neurologic: Alert, oriented x3, cranial nerves intact, no motor or sensory deficit Psychiatric: normal affect, normal mood Skin: Warm, dry, intact ED Course Vital Signs 01/03/19 01/03/19 01/03/19 09:14 09:16 09:18 Temperature 98.3 F Pulse Rate 94 H 93 H Pulse Rate [ Anterior Bilateral] Respiratory 16 16 Rate Respiratory Rate [Anterior Bilateral] Blood Pressure 136/79 Blood Pressure 136/79 [Left] O2 Sat by Pulse 94 94 90 Oximetry 01/03/19 01/03/19 01/03/19 09:30 09:45 09:46 Temperature Pulse Rate 90 85 Pulse Rate [ Anterior Bilateral] Respiratory 23 16 17 Rate Respiratory Rate [Anterior Bilateral] Blood Pressure 119/74 112/66 Blood Pressure [Left] O2 Sat by Pulse 93 90 94 Oximetry 01/03/19 01/03/19 01/03/19 10:00 10:16 10:30 Temperature Pulse Rate 86 87 87 Pulse Rate [ Anterior Bilateral] Respiratory 19 21 22 Rate Respiratory Rate [Anterior Bilateral] Blood Pressure 112/66 149/69 159/89 Blood Pressure [Left] O2 Sat by Pulse 93 94 96 Oximetry 01/03/19 01/03/19 01/03/19 10:32 10:46 11:00 Temperature Pulse Rate 86 81 Pulse Rate [ 87 Anterior Bilateral] Respiratory 19 20 Rate Respiratory 20 Rate [Anterior Bilateral] Blood Pressure 159/89 161/95 Blood Pressure [Left] O2 Sat by Pulse 97 97 Oximetry 01/03/19 01/03/19 01/03/19 11:16 11:30 11:46 Temperature Pulse Rate 87 87 90 Pulse Rate [ Anterior Bilateral] Respiratory 20 19 21 Rate Respiratory Rate [Anterior Bilateral] Blood Pressure 161/95 161/95 161/95 Blood Pressure [Left] O2 Sat by Pulse 95 96 95 Oximetry 01/03/19 01/03/19 01/03/19 12:00 12:16 12:30 Temperature Pulse Rate 88 90 89 Pulse Rate [ Anterior Bilateral] Respiratory 18 17 17 Rate Respiratory Rate [Anterior Bilateral] Blood Pressure 161/95 161/95 161/95 Blood Pressure [Left] O2 Sat by Pulse 93 94 96 Oximetry 01/03/19 01/03/19 01/03/19 12:46 13:00 13:16 Temperature Pulse Rate 95 H 90 92 H Pulse Rate [ Anterior Bilateral] Respiratory 20 22 18 Rate Respiratory Rate [Anterior Bilateral] Blood Pressure 161/95 161/95 161/95 Blood Pressure [Left] O2 Sat by Pulse 96 95 96 Oximetry ED Medical Decision Making - Lab Data Result diagrams: 01/03/19 09:50 01/03/19 09:50 Lab Results 01/03/19 01/03/19 01/03/19 Range/Units 09:50 09:50 09:50 WBC 7.5 (4.5-11.0) K/mm3 RBC 4.81 (3.65-5.03) M/mm3 Hgb 14.0 (10.1-14.3) gm/dl Hct 43.0 H (30.3-42.9) % MCV 89 (79-97) fl MCH 29 (28-32) pg MCHC 33 (30-34) % RDW 15.8 H (13.2-15.2) % Plt Count 264 (140-440) K/mm3 Lymph % (Auto) 20.7 (13.4-35.0) % [place] % (Auto) 5.6 (0.0-7.3) % Eos % (Auto) 6.5 H (0.0-4.3) % Baso % (Auto) 1.1 (0.0-1.8) % Lymph # 1.6 (1.2-5.4) K/mm3 [place] # 0.4 (0.0-0.8) K/mm3 Eos # 0.5 H (0.0-0.4) K/mm3 Baso # 0.1 (0.0-0.1) K/mm3 Seg Neutrophils % 66.1 (40.0-70.0) % Seg Neutrophils # 4.9 (1.8-7.7) K/mm3 PT (12.2-14.9) Sec. INR (0.87-1.13) Sodium 143 (137-145) mmol/L Potassium 4.3 (3.6-5.0) mmol/L Chloride 101.6 (98-107) mmol/L Carbon Dioxide 33 H (22-30) mmol/L Anion Gap 13 mmol/L BUN 10 (7-17) mg/dL Creatinine 0.7 (0.7-1.2) mg/dL Estimated GFR > 60 ml/min BUN/Creatinine Ratio 14 % Glucose 151 H (65-100) mg/dL Calcium 9.7 (8.4-10.2) mg/dL Total Bilirubin 0.40 (0.1-1.2) mg/dL AST 10 (5-40) units/L ALT 10 (7-56) units/L Alkaline Phosphatase 110 (35-129) units/L NT-Pro-B Natriuret Pep 104.4 (0-900) pg/mL Total Protein 6.7 (6.3-8.2) g/dL Albumin 3.8 L (3.9-5) g/dL Albumin/Globulin Ratio 1.3 % 01/03/19 Range/Units 09:50 WBC (4.5-11.0) K/mm3 RBC (3.65-5.03) M/mm3 Hgb (10.1-14.3) gm/dl Hct (30.3-42.9) % MCV (79-97) fl MCH (28-32) pg MCHC (30-34) % RDW (13.2-15.2) % Plt Count (140-440) K/mm3 Lymph % (Auto) (13.4-35.0) % [place] % (Auto) (0.0-7.3) % Eos % (Auto) (0.0-4.3) % Baso % (Auto) (0.0-1.8) % Lymph # (1.2-5.4) K/mm3 [place] # (0.0-0.8) K/mm3 Eos # (0.0-0.4) K/mm3 Baso # (0.0-0.1) K/mm3 Seg Neutrophils % (40.0-70.0) % Seg Neutrophils # (1.8-7.7) K/mm3 PT 12.3 (12.2-14.9) Sec. INR 0.94 (0.87-1.13) Sodium (137-145) mmol/L Potassium (3.6-5.0) mmol/L Chloride (98-107) mmol/L Carbon Dioxide (22-30) mmol/L Anion Gap mmol/L BUN (7-17) mg/dL Creatinine (0.7-1.2) mg/dL Estimated GFR ml/min BUN/Creatinine Ratio % Glucose (65-100) mg/dL Calcium (8.4-10.2) mg/dL Total Bilirubin (0.1-1.2) mg/dL AST (5-40) units/L ALT (7-56) units/L Alkaline Phosphatase (35-129) units/L NT-Pro-B Natriuret Pep (0-900) pg/mL Total Protein (6.3-8.2) g/dL Albumin (3.9-5) g/dL Albumin/Globulin Ratio % - EKG Data -: EKG Interpreted by [facility] EKG shows normal: sinus rhythm, axis (42), QRS complexes (qrsd 81), ST-T waves (no stemi/t inv) Rate: normal - Radiology Data Radiology results: report reviewed CHEST 1 VIEW INDICATION: Dyspnea. COMPARISON: 11/17/2018 FINDINGS: Support devices: None. Heart: Within normal limits. Lungs/Pleura: No acute air space or interstitial disease. Additional findings: None. IMPRESSION: No acute findings. - Medical Decision Making Patient has persisted wheezing and shortness of breath despite ED treatment for acute asthma/COPD exacerbation. Patient will be admitted for further treatment. - Differential Diagnosis COPD, asthma, CHF, bronchitis Critical Care Time: No Critical care attestation.: If time is entered above; I have spent that time in minutes in the direct care of this critically ill patient, excluding procedure time. ED Disposition Clinical Impression: COPD exacerbation, Oxygen dependent Disposition: DC09 OP ADMIT IP TO THIS HOSP Is pt being admited?: Yes Condition: Stable Time of Disposition: 12:02 (dr chiu/hosp)
[2019-01-03] MEDS ORDERED: NORCO 5/325 PO ONE (11:00)
[2019-01-03] MEDS ORDERED: NORCO 5/325 ONE (11:03)
--- NOTE | 2019-01-03 12:04 | History and Physical Report ---
History of Present Illness Chief complaint: I cant breathe History of present illness: 53 YO Female with HTN, CHF, DM, OA, Bipolar, Schizophrenia, MO, Obesity Hypoventilation noncompliant with NIPPV, COPD, Chronic Respiratory Failure on 2L Home Oxygen, Nicotine Dependence presents to ED for evaluation. Pt states that she has experienced shortness of breath, worsening cough, and wheezing over the past 3 days with worsening symptoms over the past 1 day. Pt acknowledges increased cough with production of clear sputum, chest tightness, and increased nebulizer use without relief. Pt transported to [facility] via private vehicle. Pt seen and evaluated in ED and found to have Acute on Chronic Hypoxemic Respiratory Failure secondary to COPD Exacerbation. Pt denies fever, chills, CP, Palpitations, NVD, Syncope, BRBPR, unintentional weight loss or night sweats. Pt admitted to medical floor. Prior admission on 11/05/18 reviewed. All listed medication reconciled at time of admission. Pt counseled regarding noncompliance. Past History Past Medical History: arthritis, COPD, diabetes, heart failure, hypertension, other (Bipolar, Schizophrenia) Past Surgical History: hysterectomy, Other (Spinal fusion) Social history: , smoking Family history: diabetes, hypertension Medications and Allergies Allergies Allergy/AdvReac Type Severity Reaction Status Date / Time Penicillins Allergy Angioedema Verified 09/14/18 13:55 prednisone Allergy Unknown Verified 09/14/18 13:55 bupropion HCl AdvReac Unknown Verified 09/14/18 13:55 [From Wellbutrin] divalproex sodium AdvReac Unknown Verified 09/14/18 13:55 [From Depakote] fluoxetine HCl [From Prozac] AdvReac Unknown Verified 09/14/18 13:55 lithium AdvReac Unknown Verified 09/14/18 13:55 Home Medications Medication Instructions Recorded Confirmed Last Taken Type Lisinopril 20 mg PO DAILY #30 tablet 07/30/18 11/17/18 11/17/18 Rx Escitalopram Oxalate [Lexapro] 20 mg PO QDAY 09/14/18 11/17/18 11/17/18 History Omeprazole 20 mg PO QDAY 09/14/18 11/17/18 11/17/18 History ALBUTEROL Inhaler(NF) [VENTOLIN 2 puff IH Q4H PRN #1 can 09/17/18 11/17/18 11/10/18 09:10 Rx Inhaler(NF)] ALBUTEROL NEB's [Proventil 0.083% 2.5 mg IH QID PRN #60 nebu 09/17/18 11/17/18 11/10/18 Rx NEBS] Budesonide/Formoterol Fumarate 1 puff IH BID #60 hfa.aer.ad 09/17/18 11/17/18 11/10/18 Rx [Symbicort 160-4.5 Mcg Inhaler] LORazepam [Ativan] 0.5 mg PO BID PRN #10 tab 11/11/18 11/17/18 Unknown Rx Oxycodone HCl/Acetaminophen 1 each PO Q6HR PRN #20 tablet 11/11/18 11/17/18 Unknown Rx [Percocet 10/325 mg] Acetaminophen [Non-Aspirin Extra 500 mg PO Q6HR PRN #30 tablet 11/17/18 Unknown Rx Strength] Albuterol Sulfate [Proair 90 mcg IH Q4HR PRN #2 aer.pow.ba 11/17/18 Unknown Rx Respiclick] Ibuprofen [Motrin] 600 mg PO Q8H PRN #30 tablet 11/17/18 Unknown Rx Insulin Aspart [NovoLOG Flexpen] 15 units SUB-Q TIDAC 11/17/18 11/17/18 11/17/18 History Ipratropium (Nf) [Atrovent] 2 puff IH Q6HR PRN #1 inha 11/17/18 Unknown Rx oxyCODONE [Roxicodone] 5 mg PO Q6HR PRN #15 tablet 11/17/18 Unknown Rx predniSONE [Deltasone] 40 mg PO QDAY #8 tab 11/17/18 Unknown Rx Review of Systems Constitutional: no weight loss, no weight gain, no fever, no chills Ears, nose, mouth and throat: no ear pain, no ear discharge, no tinnitis, no nasal congestion Breasts: no change in shape, no swelling, no mass Cardiovascular: no chest pain, no orthopnea, no palpitations Respiratory: cough, cough with sputum, excessive sputum, shortness of breath, wheezing, sleep apnea, no pain on inspiration Gastrointestinal: no nausea, no vomiting, no diarrhea, no change in bowel habits, no hematemesis Genitourinary Female: no pelvic pain, no flank pain, no menorrhagia, no dysuria, no urinary frequency, no stress incontinence Rectal: no pain, no incontinence, no bleeding Integumentary: no rash, no pruritis, no redness, no sores, no wounds, no jaundice Neurological: no transient paralysis, no paralysis, no weakness, no numbness, no tingling, no seizures, no syncope Psychiatric: no anxiety, no change in sleep habits, no sleep disturbances, no hypersomnia, no change in libido, no suicidal ideation, no disorientation Endocrine: no cold intolerance, no heat intolerance, no polyphagia, no excessive thirst, no polyuria, no nocturia, no flushing Hematologic/Lymphatic: no easy bruising, no easy bleeding, no lymphadenopathy, no lymphedema Allergic/Immunologic: no urticaria, no allergic rhinitis, no wheezing, no persistent infections, no anaphylaxis, no angioedema Exam - Constitutional Vitals: Temp Pulse Resp BP Pulse Ox 98.3 F 87 20 149/69 94 01/03/19 09:18 01/03/19 10:32 01/03/19 10:32 01/03/19 10:16 01/03/19 10:16 General appearance: Present: mild distress, obese - EENT Eyes: Present: PERRL ENT: hearing intact, clear oral mucosa - Neck Neck: Present: supple, normal ROM - Respiratory Respiratory effort: labored Respiratory: bilateral: diminished, wheezing - Cardiovascular Heart Sounds: Present: S1 & S2. Absent: rub, click - Extremities Extremities: pulses symmetrical, No edema Peripheral Pulses: within normal limits - Abdominal General gastrointestinal: Present: soft, non-tender, non-distended, normal bowel sounds Female genitourinary: Present: normal - Integumentary Integumentary: Present: clear, warm, dry - Musculoskeletal Musculoskeletal: gait normal, strength equal bilaterally - Psychiatric Psychiatric: appropriate mood/affect, intact judgment & insight - Neurologic Neurologic: CNII-XII intact, moves all extremities Results - Labs CBC & Chem 7: 01/03/19 09:50 01/03/19 09:50 Labs: Abnormal lab results 01/03/19 01/03/19 Range/Units 09:50 09:50 Hct 43.0 H (30.3-42.9) % RDW 15.8 H (13.2-15.2) % Eos % (Auto) 6.5 H (0.0-4.3) % Eos # 0.5 H (0.0-0.4) K/mm3 Carbon Dioxide 33 H (22-30) mmol/L Glucose 151 H (65-100) mg/dL Albumin 3.8 L (3.9-5) g/dL Assessment and Plan - Patient Problems (1) Acute exacerbation of chronic obstructive pulmonary disease (COPD) Current Visit: No Status: Acute Plan to address problem: Supplemental oxygen, nebulizer therapy, Chest x ray, NIPPV, Pulmonary consulted. (2) Acute on chronic respiratory failure with hypoxia Current Visit: No Status: Acute Plan to address problem: Supplemental oxygen, pulse oximetry, NIPPV QHS, Pulmonary toilet, early ambulation, PPI therapy, chest x ray, (3) Bipolar disorder Current Visit: No Status: Chronic Qualifiers: Active/Remission status: in full remission Plan to address problem: supportive care, outpatient psychiatry F/U care. (4) Diabetes mellitus type 2 in obese Current Visit: No Status: Chronic Plan to address problem: ADA diet, Insulin, accu check, hypoglycemia protocol (5) HTN (hypertension) Current Visit: No Status: Chronic Qualifiers: Hypertension type: essential hypertension Qualified Code(s): I10 - [facility] l (primary) hypertension Plan to address problem: Monitor BP q shift, (6) Obesity hypoventilation syndrome Current Visit: Yes Status: Acute (7) Behavioral change Current Visit: Yes Status: Acute Plan to address problem: Pt counseled regarding Nicotind Dependence, +15min, Pt counseled regarding noncompliance, as diet modification, +30minutes. (8) DVT prophylaxis Current Visit: Yes Status: Acute Plan to address problem: SCD to BLE while in bed,
[2019-01-03] MEDS ORDERED: TYLENOL PO PRN ×2 (12:06→18:05)
[2019-01-03] MEDS ORDERED: SODIUM CHLORIDE FLUSH SYRINGE 10 ML IV PRN (12:06)
[2019-01-03] MEDS ORDERED: ZOFRAN IV PRN (12:06)
[2019-01-03] MEDS: PROTONIX PO SCH (14:00)
[2019-01-03] MEDS ORDERED: PROTONIX IV ONE (14:32)
[2019-01-03] MEDS ORDERED: WATER FOR INJ Sterile (PF) 10 ML ONE (14:32)
[2019-01-03] MEDS ORDERED: D50W (25GM) Syringe IV PRN (16:32)
[2019-01-03] MEDS: PROVENTIL IH PRN ×2 (16:49→20:53)
[2019-01-03] MEDS: ZITHROMAX 500 MG in NACL 0.9% 250ML 250 ML IV SCH (17:18)
[2019-01-03] MEDS: HumaLOG SUB-Q SCH (17:31)
[2019-01-03] MEDS ORDERED: PROVENTIL IH PRN (18:05)
[2019-01-03] MEDS ORDERED: IBUPROFEN PO PRN (18:05)
[2019-01-03] MEDS ORDERED: NON-FORMULARY (Gabapentin 600 MG) PO SCH (18:15)
[2019-01-03] MEDS: NEURONTIN PO SCH (19:05)
[2019-01-03] MEDS: ATIVAN PO PRN (21:45)
[2019-01-03] MEDS: SODIUM CHLORIDE FLUSH SYRINGE 10 ML IV SCH (21:46)
[2019-01-03] MEDS: SOLU-Medrol IV SCH (21:46)
[2019-01-04] MEDS: HumaLOG SUB-Q SCH ×7 (00:17→17:58)
[2019-01-04] MEDS: TESSALON PERLES PO SCH ×4 (00:18→22:23)
[2019-01-04] MEDS: NEURONTIN PO SCH ×3 (02:55→19:41)
[2019-01-04] MEDS: PROVENTIL IH PRN ×4 (04:17→19:40)
[2019-01-04 05:29] LABS: Hematocrit 41.5 % (30.3-42.9); Mean Corpuscular HGB Conc 34 % (30-34); Mean Corpuscular Volume 87 fl (79-97); Platelet Count 274 K/mm3 (140-440); Red Blood Count 4.76 M/mm3 (3.65-5.03); Red Cell Distribution Width 15.5 % (13.2-15.2)
[2019-01-04 05:54] LABS: Alanine Aminotransferase 10 units/L (7-56); Albumin 3.9 g/dL (3.9-5); BUN/Creatinine Ratio 17; Blood Urea Nitrogen 10 mg/dL (7-17); Calcium 9.8 mg/dL (8.4-10.2); Hemolysis Index 2
[2019-01-04] MEDS ORDERED: TESSALON PERLES PO SCH (06:00)
[2019-01-04 07:12] LABS: Basophils % (Manual) 0 % (0.0-1.8); Eosinophils % (Manual) 0 % (0.0-4.3); Total Cells Counted 100
[2019-01-04 07:13] LABS: Anisocytosis Few; Stomatocytes Rare
[2019-01-04 07:14] LABS: Platelet Estimate Consistent w Auto
[2019-01-04] MEDS ORDERED: NON-FORMULARY (Insulin Aspart [Novolog Flexpen] 15 UNITS) SUB-Q SCH (07:30)
--- NOTE | 2019-01-04 08:14 | Progress Note ---
Assessment and Plan Assessment and plan: Patient is a 53 yo woman from [facility] with a history of hypertension, IDDM, CHF, bipolar, schizophrenia, chronic pain syndrome, continued tobacco dependency despite chronic hypoxic respiratory failure on 2 liters of home O2 due to end stage COPD with hypoxemia resulting in cardiac arrest and intubation on 11/05/18 who presents with SOB * pCXR IMPRESSION: No acute findings. Acute exacerbation of chronic obstructive pulmonary disease (COPD): treat with o2, nebs, steroids, antitussive and abx Chronic respiratory failure with hypoxia: continue o2 Tobacco dependency: counseling done, I told her there was nothing more anyone could do if she continues to smoke, offered nicotine patch Bipolar disorder: supportive care, outpatient psychiatry F/U care. Diabetes mellitus type 2 with uncontrolled hyperglycemia: adjust insulin and adjust steroids once indicated, ADA diet, Insulin, accu check, hypoglycemia protocol HTN (hypertension): low salt diet, antihypertensives Obesity hypoventilation syndrome/DIMITRIOS, noncompliant with getting the CPAP machine from Dr. Randolph: counseling done, she just did not go back after the sleep study DVT prophylaxis: added sq heparin Morbid Obesity, bmi 47.4: counseling done Chronic pains syndrome due to "spinal fusion", asking for norco: pain control and counseling done History Interval history: Patient was seen and examined. Follow-up on current diagnosis COPD. No overnight events reported to me. Patient denies any chest pain, nausea/vomiting or severe headaches. Imaging, nursing note, chart, labs and old chart reviewed. Discussed with patient. Hospitalist Physical - Physical exam Narrative exam: Gen: WDWN, NAD, Awake, Alert, Orientated x 3, bmi 47.4 HEENT: NCAT, EOMI, PERRL, OP Clear Neck: supple, no adenopathy, no thyromegaly, no JVD CVS/Heart: RRR, normal S1S2, pulses present bilaterally Chest/Lungs: bilateral wheezing with diminished bs bilateral, Symmetrical chest expansion, adequate air entry bilaterally GI/Abdomen: soft, NTND, good bowel sounds, no guarding or rebound /Bladder: no suprapubic tenderness, no CVA or paraspinal tenderness Extermity/Skin: no c/c/e, no obvious rash MSK: FROM x 4 Neuro: CN 2-12 grossly intact, no new focal deficits Psych: calm - Constitutional Vitals: Temp Pulse Resp BP Pulse Ox 97.5 F L 91 H 20 124/73 96 01/04/19 05:00 01/04/19 05:00 01/04/19 05:00 01/04/19 05:00 01/04/19 05:00 General appearance: Present: obese. Absent: mild distress Results - Labs CBC & Chem 7: 01/04/19 05:16 01/04/19 05:16 Labs: Laboratory Last Values WBC 10.2 K/mm3 (4.5-11.0) 01/04/19 05:16 RBC 4.76 M/mm3 (3.65-5.03) 01/04/19 05:16 Hgb 14.0 gm/dl (10.1-14.3) 01/04/19 05:16 Hct 41.5 % (30.3-42.9) 01/04/19 05:16 MCV 87 fl (79-97) 01/04/19 05:16 MCH 29 pg (28-32) 01/04/19 05:16 MCHC 34 % (30-34) 01/04/19 05:16 RDW 15.5 % (13.2-15.2) H 01/04/19 05:16 Plt Count 274 K/mm3 (140-440) 01/04/19 05:16 Lymph % (Auto) 20.7 % (13.4-35.0) 01/03/19 09:50 Saline % (Auto) 5.6 % (0.0-7.3) 01/03/19 09:50 Eos % (Auto) 6.5 % (0.0-4.3) H 01/03/19 09:50 Baso % (Auto) 1.1 % (0.0-1.8) 01/03/19 09:50 Lymph # 1.6 K/mm3 (1.2-5.4) 01/03/19 09:50 Saline # 0.4 K/mm3 (0.0-0.8) 01/03/19 09:50 Eos # 0.5 K/mm3 (0.0-0.4) H 01/03/19 09:50 Baso # 0.1 K/mm3 (0.0-0.1) 01/03/19 09:50 Add Manual Diff Complete 01/04/19 05:16 Total Counted 100 01/04/19 05:16 Seg Neutrophils % Sheep Sorter 01/04/19 05:16 Seg Neuts % (Manual) 93.0 % (40.0-70.0) H 01/04/19 05:16 0 % 01/04/19 05:16 6.0 % (13.4-35.0) L 01/04/19 05:16 Reactive Lymphs % (Man) 0 % 01/04/19 05:16 1.0 % (0.0-7.3) 01/04/19 05:16 0 % (0.0-4.3) 01/04/19 05:16 0 % (0.0-1.8) 01/04/19 05:16 0 % 01/04/19 05:16 0 % 01/04/19 05:16 0 % 01/04/19 05:16 0 % 01/04/19 05:16 Nucleated RBC % Not Reportable 01/04/19 05:16 Seg Neutrophils # 4.9 K/mm3 (1.8-7.7) 01/03/19 09:50 Seg Neutrophils # Man 9.5 K/mm3 (1.8-7.7) H 01/04/19 05:16 Band Neutrophils # 0.0 K/mm3 01/04/19 05:16 0.6 K/mm3 (1.2-5.4) L 01/04/19 05:16 Abs React Lymphs (Man) 0.0 K/mm3 01/04/19 05:16 0.1 K/mm3 (0.0-0.8) 01/04/19 05:16 0.0 K/mm3 (0.0-0.4) 01/04/19 05:16 0.0 K/mm3 (0.0-0.1) 01/04/19 05:16 0.0 K/mm3 01/04/19 05:16 0.0 K/mm3 01/04/19 05:16 0.0 K/mm3 01/04/19 05:16 Blast Cells # 0.0 K/mm3 01/04/19 05:16 WBC Morphology Not Reportable 01/04/19 05:16 Hypersegmented Neuts Not Reportable 01/04/19 05:16 Hyposegmented Neuts Not Reportable 01/04/19 05:16 Hypogranular Neuts Not Reportable 01/04/19 05:16 Not Reportable 01/04/19 05:16 Not Reportable 01/04/19 05:16 Not Reportable 01/04/19 05:16 Not Reportable 01/04/19 05:16 Not Reportable 01/04/19 05:16 Not Reportable 01/04/19 05:16 Consistent w auto 01/04/19 05:16 Not Reportable 01/04/19 05:16 Plt Clumps, EDTA Not Reportable 01/04/19 05:16 Not Reportable 01/04/19 05:16 Not Reportable 01/04/19 05:16 Not Reportable 01/04/19 05:16 Plt Morphology Comment Not Reportable 01/04/19 05:16 RBC Morphology Not Reportable 01/04/19 05:16 Dimorphic RBCs Not Reportable 01/04/19 05:16 Not Reportable 01/04/19 05:16 Not Reportable 01/04/19 05:16 Not Reportable 01/04/19 05:16 Few 01/04/19 05:16 Not Reportable 01/04/19 05:16 Not Reportable 01/04/19 05:16 Not Reportable 01/04/19 05:16 Not Reportable 01/04/19 05:16 Not Reportable 01/04/19 05:16 Not Reportable 01/04/19 05:16 Not Reportable 01/04/19 05:16 Not Reportable 01/04/19 05:16 Rare 01/04/19 05:16 Not Reportable 01/04/19 05:16 Not Reportable 01/04/19 05:16 Not Reportable 01/04/19 05:16 Not Reportable 01/04/19 05:16 Not Reportable 01/04/19 05:16 Not Reportable 01/04/19 05:16 Not Reportable 01/04/19 05:16 Acanthocytes (Spur) Not Reportable 01/04/19 05:16 Rouleaux Not Reportable 01/04/19 05:16 Not Reportable 01/04/19 05:16 Not Reportable 01/04/19 05:16 Not Reportable 01/04/19 05:16 Not Reportable 01/04/19 05:16 Hem Pathologist Commnt No 01/04/19 05:16 PT 12.3 Sec. (12.2-14.9) 01/03/19 09:50 INR 0.94 (0.87-1.13) 01/03/19 09:50 Sodium 136 mmol/L (137-145) L 01/04/19 05:16 Potassium 4.6 mmol/L (3.6-5.0) 01/04/19 05:16 Chloride 98.1 mmol/L (98-107) 01/04/19 05:16 Carbon Dioxide 26 mmol/L (22-30) D 01/04/19 05:16 17 mmol/L 01/04/19 05:16 BUN 10 mg/dL (7-17) 01/04/19 05:16 0.6 mg/dL (0.7-1.2) L 01/04/19 05:16 Estimated GFR > 60 ml/min 01/04/19 05:16 17 % 01/04/19 05:16 Glucose 290 mg/dL (65-100) H 01/04/19 05:16 POC Glucose 254 (70-105) H 01/04/19 07:34 Calcium 9.8 mg/dL (8.4-10.2) 01/04/19 05:16 0.50 mg/dL (0.1-1.2) 01/04/19 05:16 AST 7 units/L (5-40) 01/04/19 05:16 ALT 10 units/L (7-56) 01/04/19 05:16 110 units/L (35-129) 01/04/19 05:16 NT-Pro-B Natriuret Pep 104.4 pg/mL (0-900) 01/03/19 09:50 7.0 g/dL (6.3-8.2) 01/04/19 05:16 3.9 g/dL (3.9-5) 01/04/19 05:16 1.3 % 01/04/19 05:16 Active Medications - Current Medications Current Medications: Generic Name Dose Route Start Last Admin Trade Name Freq PRN Reason Stop Dose Admin Acetaminophen 650 mg 01/03/19 12:06 Tylenol PO Q4H PRN Pain MILD(1-3)/Fever >100.5/KHAN Acetaminophen 500 mg 01/03/19 18:05 Tylenol PO Q6HR PRN Pain , Severe (7-10) Albuterol 2.5 mg 01/03/19 12:06 01/04/19 04:17 Proventil IH 2.5 mg Q4HRT PRN Administration Shortness Of Breath Albuterol 2.5 mg 01/03/19 18:05 Proventil IH QID PRN Shortness Of Breath Benzonatate 100 mg 01/03/19 23:30 01/04/19 06:46 Tessalon Perles PO 100 mg Q8HR VIC Administration Dextrose 50 ml 01/03/19 16:32 D50w (25gm) Syringe IV PRN PRN Hypoglycemia Escitalopram Oxalate 20 mg 01/04/19 10:00 Lexapro PO DAILY [facility] Gabapentin 300 mg 01/03/19 18:15 01/04/19 02:55 Neurontin PO 300 mg Q8H VIC Administration Azithromycin 500 mg/ Sodium 250 mls @ 250 mls/hr 01/03/19 15:00 01/03/19 17:18 Chloride IV 250 mls/hr Q24HR VIC Administration Protocol Ibuprofen 600 mg 01/03/19 18:05 01/03/19 21:46 Ibuprofen PO 600 mg Q8H PRN Administration Pain Insulin Human Lispro 0 unit 01/03/19 18:00 01/04/19 06:55 Humalog SUB-Q 4 unit Q6HR [facility] Administration Protocol Insulin Human Lispro 15 unit 01/04/19 07:30 Humalog SUB-Q TIDAC [facility] Lisinopril 20 mg 01/04/19 10:00 Zestril PO DAILY [facility] Lorazepam 0.5 mg 01/03/19 18:05 01/03/19 21:45 Ativan PO 0.5 mg BID PRN Administration Anxiety Methylprednisolone Sodium Succinate 40 mg 01/03/19 22:00 01/03/19 21:46 Solu-Medrol IV 40 mg Q12HR VIC Administration Miscellaneous Medication 15 units 01/04/19 07:30 Insulin Aspart [Novolog Flexpen] SUB-Q TIDAC [facility] Ondansetron HCl 4 mg 01/03/19 12:06 Zofran IV Q8H PRN Nausea And Vomiting Pantoprazole Sodium 40 mg 01/03/19 14:00 01/03/19 14:00 Protonix PO 40 mg QDAY VIC Administration Pantoprazole Sodium 20 mg 01/04/19 10:00 Protonix PO QDAY VIC Prednisone 40 mg 01/04/19 10:00 Deltasone PO QDAY VIC Sodium Chloride 10 ml 01/03/19 22:00 01/03/19 21:46 Sodium Chloride Flush Syringe 10 Ml IV 10 ml BID VIC Administration Sodium Chloride 10 ml 01/03/19 12:06 Sodium Chloride Flush Syringe 10 Ml IV PRN PRN LINE FLUSH
[2019-01-04] MEDS ORDERED: HumaLOG SUB-Q SCH (09:00)
[2019-01-04] MEDS ORDERED: PROTONIX PO SCH (10:00)
[2019-01-04] MEDS ORDERED: NON-FORMULARY (Omeprazole [Omeprazole] 20 MG) PO SCH (10:00)
[2019-01-04] MEDS ORDERED: NON-FORMULARY (Escitalopram Oxalate [Lexapro] 20 MG) PO SCH (10:00)
[2019-01-04] MEDS ORDERED: DELTASONE PO SCH (10:00)
[2019-01-04] MEDS: LEXAPRO PO SCH (10:30)
[2019-01-04] MEDS: PROTONIX PO SCH (10:31)
[2019-01-04] MEDS: SODIUM CHLORIDE FLUSH SYRINGE 10 ML IV SCH ×2 (10:32→22:23)
[2019-01-04] MEDS: NORCO 10/325 PO PRN ×2 (10:34→18:41)
[2019-01-04] MEDS: SOLU-Medrol IV SCH ×2 (10:35→22:23)
[2019-01-04] MEDS: ZESTRIL PO SCH (10:43)
[2019-01-04] MEDS: ZITHROMAX 500 MG in NACL 0.9% 250ML 250 ML IV SCH (12:03)
--- NOTE | 2019-01-04 12:59 | Consultation ---
History of Present Illness Consult date: 01/04/19 Requesting physician: MERLYN TSANG Reason for consult: COPD History of present illness: 53 y/o female, well known to me and our group, admitted with COPD exacerbation. Last admit, patient was seen by the other group. Per patient she informed whomever but we were never called. Patient with a long history of noncompliance with medical therapy and continued tobacco abuse. Feels better today. Currently on BID solumedrol. Oxygen is currently at 3 liter, per patient wears 2 at night at home. She has had a sleep study but does not appear to have followed up yet. Remainder is negative. Past History Past Medical History: arthritis, COPD, diabetes, heart failure, hypertension, other (Bipolar, Schizophrenia) Past Surgical History: hysterectomy, Other (Spinal fusion) Social history: , smoking Family history: diabetes, hypertension Medications and Allergies Allergies Allergy/AdvReac Type Severity Reaction Status Date / Time Penicillins Allergy Angioedema Verified 09/14/18 13:55 prednisone Allergy Unknown Verified 09/14/18 13:55 bupropion HCl AdvReac Unknown Verified 09/14/18 13:55 [From Wellbutrin] divalproex sodium AdvReac Unknown Verified 09/14/18 13:55 [From Depakote] fluoxetine HCl [From Prozac] AdvReac Unknown Verified 09/14/18 13:55 lithium AdvReac Unknown Verified 09/14/18 13:55 Home Medications Medication Instructions Recorded Confirmed Last Taken Type Lisinopril 20 mg PO DAILY #30 tablet 07/30/18 01/03/19 11/17/18 Rx Escitalopram Oxalate [Lexapro] 20 mg PO QDAY 09/14/18 01/03/19 11/17/18 History Omeprazole 20 mg PO QDAY 09/14/18 01/03/19 11/17/18 History ALBUTEROL NEB's [Proventil 0.083% 2.5 mg IH QID PRN #60 nebu 09/17/18 01/03/19 11/10/18 Rx NEBS] Budesonide/Formoterol Fumarate 1 puff IH BID #60 hfa.aer.ad 09/17/18 01/03/19 11/10/18 Rx [Symbicort 160-4.5 Mcg Inhaler] LORazepam [Ativan] 0.5 mg PO BID PRN #10 tab 11/11/18 01/03/19 Unknown Rx Acetaminophen [Non-Aspirin Extra 500 mg PO Q6HR PRN #30 tablet 11/17/18 01/03/19 Unknown Rx Strength] Albuterol Sulfate [Proair 90 mcg IH Q4HR PRN #2 aer.pow.ba 11/17/18 01/03/19 Unknown Rx Respiclick] Ibuprofen [Motrin] 600 mg PO Q8H PRN #30 tablet 11/17/18 01/03/19 Unknown Rx Insulin Aspart [NovoLOG Flexpen] 15 units SUB-Q TIDAC 11/17/18 01/03/19 11/17/18 History predniSONE [Deltasone] 40 mg PO QDAY #8 tab 11/17/18 01/03/19 Unknown Rx Gabapentin 600 mg PO Q8H 01/03/19 01/03/19 01/02/19 History Active Meds: Active Medications Acetaminophen (Tylenol) 650 mg PO Q4H PRN PRN Reason: Pain MILD(1-3)/Fever >100.5/KHAN Acetaminophen/Hydrocodone Bitart ([place] 10/325) 1 each PO Q4H PRN PRN Reason: Pain , Severe (7-10) Last Admin: 01/04/19 10:34 Dose: 1 each Documented by: Albuterol (Proventil) 2.5 mg IH Q4HRT PRN PRN Reason: Shortness Of Breath Last Admin: 01/04/19 09:33 Dose: 2.5 mg Documented by: Benzonatate (Tessalon Perles) 100 mg PO Q8HR VIC Last Admin: 01/04/19 06:46 Dose: 100 mg Documented by: Dextrose (D50w (25gm) Syringe) 50 ml IV PRN PRN PRN Reason: Hypoglycemia Escitalopram Oxalate (Lexapro) 20 mg PO DAILY COUNTS INCLUDE 234 BEDS AT THE [facility] Last Admin: 01/04/19 10:30 Dose: 20 mg Documented by: Gabapentin (Neurontin) 300 mg PO Q8H VIC Last Admin: 01/04/19 12:04 Dose: 300 mg Documented by: Heparin Sodium (Porcine) (Heparin) 5,000 unit SUB-Q Q12HR VIC Azithromycin 500 mg/ Sodium (Chloride) 250 mls @ 250 mls/hr IV Q24HR VIC; Protocol Stop: 01/07/19 10:59 Last Admin: 01/04/19 12:03 Dose: 250 mls/hr Documented by: Insulin Human Lispro (Humalog) 0 unit SUB-Q Q6HR COUNTS INCLUDE 234 BEDS AT THE [facility]; Protocol Last Admin: 01/04/19 06:55 Dose: 4 unit Documented by: Insulin Human Lispro (Humalog) 15 unit SUB-Q TIDAC COUNTS INCLUDE 234 BEDS AT THE [facility] Last Admin: 01/04/19 08:55 Dose: 15 unit Documented by: Lisinopril (Zestril) 20 mg PO DAILY COUNTS INCLUDE 234 BEDS AT THE [facility] Last Admin: 01/04/19 10:43 Dose: 20 mg Documented by: Lorazepam (Ativan) 0.5 mg PO BID PRN PRN Reason: Anxiety Last Admin: 01/03/19 21:45 Dose: 0.5 mg Documented by: Methylprednisolone Sodium Succinate (Solu-Medrol) 40 mg IV Q12HR COUNTS INCLUDE 234 BEDS AT THE [facility] Last Admin: 01/04/19 10:35 Dose: 40 mg Documented by: Ondansetron HCl (Zofran) 4 mg IV Q8H PRN PRN Reason: Nausea And Vomiting Pantoprazole Sodium (Protonix) 40 mg PO QDAY COUNTS INCLUDE 234 BEDS AT THE [facility] Last Admin: 01/04/19 10:31 Dose: 40 mg Documented by: Sodium Chloride (Sodium Chloride Flush Syringe 10 Ml) 10 ml IV BID COUNTS INCLUDE 234 BEDS AT THE [facility] Last Admin: 01/04/19 10:32 Dose: 10 ml Documented by: Sodium Chloride (Sodium Chloride Flush Syringe 10 Ml) 10 ml IV PRN PRN PRN Reason: LINE FLUSH Review of Systems All systems: negative Physical Examination Vital signs: Vital Signs Pulse Ox 94 01/03/19 09:14 General appearance: no acute distress, alert, other (morbidly obese) Eyes: non-icteric ENT: oropharynx moist Neck: other (large in circumference) Effort: normal Ascultation: Bilateral: diminished breath sounds, wheezes Percussion: Bilateral: not dull Tactile fremitus: Bilateral: normal Cardiovascular: regular rate and rhythm Gastrointestinal: normoactive bowel sounds, soft, non-distended Results - Laboratory Findings CBC and BMP: 01/04/19 05:16 01/04/19 05:16 PT/INR, D-dimer PT 12.3 Sec. (12.2-14.9) 01/03/19 09:50 INR 0.94 (0.87-1.13) 01/03/19 09:50 Abnormal lab findings: Abnormal Labs 01/03/19 01/03/19 01/03/19 09:50 09:50 16:34 Hct 43.0 H RDW 15.8 H Eos % (Auto) 6.5 H Eos # 0.5 H Seg Neuts % (Manual) Lymphocytes % (Manual) Seg Neutrophils # Man Lymphocytes # (Manual) Sodium Carbon Dioxide 33 H Creatinine Glucose 151 H POC Glucose 291 H Albumin 3.8 L 01/03/19 01/04/19 01/04/19 23:54 05:16 05:16 Hct RDW 15.5 H Eos % (Auto) Eos # Seg Neuts % (Manual) 93.0 H Lymphocytes % (Manual) 6.0 L Seg Neutrophils # Man 9.5 H Lymphocytes # (Manual) 0.6 L Sodium 136 L Carbon Dioxide Creatinine 0.6 L Glucose 290 H POC Glucose 309 H Albumin 01/04/19 01/04/19 01/04/19 06:25 07:34 11:38 Hct RDW Eos % (Auto) Eos # Seg Neuts % (Manual) Lymphocytes % (Manual) Seg Neutrophils # Man Lymphocytes # (Manual) Sodium Carbon Dioxide Creatinine Glucose POC Glucose 264 H 254 H 239 H Albumin - Diagnostic Findings Chest x-ray: image reviewed (no evidence of acute lung disease) Assessment and Plan 53 y/o female with multiple medial issues and multiple allergies admitted with COPD exacerbation and chronic respiratory failure, noncompliance with therapy. 1. Agree with current medical regimen 2. Will review office records in regards to most recent sleep study 3. Per patient, mention of discharge tomorrow, would not have objection to this given that patient looks well today 4. Encouraged smoking cessation. Would not discharge patient on nicotine patch. Patient's will smoke on these and obtain a double high, which could cause coronary vasospasm and myocardial infarction. 5. Weight loss Thank you for this consult. Will continue to follow with you.
[2019-01-04] MEDS: ATIVAN PO PRN (22:23)
[2019-01-05] MEDS: HumaLOG SUB-Q SCH ×7 (00:59→17:49)
[2019-01-05] MEDS: NEURONTIN PO SCH ×3 (01:49→17:49)
[2019-01-05] MEDS: TESSALON PERLES PO SCH ×3 (05:27→22:31)
[2019-01-05] MEDS: PROVENTIL IH PRN ×2 (09:05→20:37)
[2019-01-05] MEDS: ZESTRIL PO SCH (09:30)
[2019-01-05] MEDS: LEXAPRO PO SCH (09:30)
[2019-01-05] MEDS: SOLU-Medrol IV SCH ×2 (09:31→22:31)
[2019-01-05] MEDS: SODIUM CHLORIDE FLUSH SYRINGE 10 ML IV SCH ×2 (09:31→22:31)
[2019-01-05] MEDS: ZITHROMAX 500 MG in NACL 0.9% 250ML 250 ML IV SCH (09:31)
[2019-01-05] MEDS: PROTONIX PO SCH (09:31)
[2019-01-05] MEDS: HEPARIN SUB-Q SCH ×2 (09:31→22:31)
[2019-01-05] MEDS: ATIVAN PO PRN ×2 (09:40→20:34)
[2019-01-05] MEDS: NORCO 10/325 PO PRN ×3 (10:10→22:37)
--- NOTE | 2019-01-05 12:07 | Progress Note ---
Assessment and Plan Assessment and plan: Patient is a 53 yo woman from [facility] with a history of hypertension, IDDM, CHF, bipolar, schizophrenia, chronic pain syndrome, continued tobacco dependency despite chronic hypoxic respiratory failure on 2 liters of home O2 due to end stage COPD with hypoxemia resulting in cardiac arrest and intubation on 11/05/18 who presents with SOB * pCXR IMPRESSION: No acute findings. Acute exacerbation of chronic obstructive pulmonary disease (COPD): treat with o2, nebs, steroids, antitussive and abx Chronic respiratory failure with hypoxia: continue o2 Tobacco dependency: counseling done, I told her there was nothing more anyone could do if she continues to smoke, Bipolar disorder: supportive care, outpatient psychiatry F/U care. Diabetes mellitus type 2 with uncontrolled hyperglycemia: adjust insulin and adjust steroids once indicated, ADA diet, Insulin, accu check, hypoglycemia protocol HTN (hypertension): low salt diet, antihypertensives Obesity hypoventilation syndrome/DIMITRIOS, noncompliant with getting the CPAP machine from Dr. Randolph: counseling done, she just did not go back after the sleep study DVT prophylaxis: added sq heparin Morbid Obesity, bmi 47.4: counseling done Chronic pains syndrome due to "spinal fusion", asking for norco: pain control and counseling done Disposition: continue inpatient care, anticipate discharge tomorrow, start to wean down iv steroids today History Interval history: Patient was seen and examined. Follow-up on current diagnosis COPD. No overnight events reported to me. Patient denies any chest pain, nausea/vomiting or severe headaches. Imaging, nursing note, chart, labs and old chart reviewed. Discussed with patient. Feels better. Hospitalist Physical - Physical exam Narrative exam: Gen: WDWN, NAD, Awake, Alert, Orientated x 3, bmi 47.4 HEENT: NCAT, EOMI, PERRL, OP Clear Neck: supple, no adenopathy, no thyromegaly, no JVD CVS/Heart: RRR, normal S1S2, pulses present bilaterally Chest/Lungs: diminished bs bilateral, Symmetrical chest expansion, adequate air entry bilaterally GI/Abdomen: soft, NTND, good bowel sounds, no guarding or rebound /Bladder: no suprapubic tenderness, no CVA or paraspinal tenderness Extermity/Skin: no c/c/e, no obvious rash MSK: FROM x 4 Neuro: CN 2-12 grossly intact, no new focal deficits Psych: calm - Constitutional Vitals: Temp Pulse Resp BP Pulse Ox 97.5 F L 85 17 120/69 95 01/05/19 05:03 01/05/19 09:05 01/05/19 09:05 01/05/19 05:03 01/05/19 08:32 General appearance: Present: obese. Absent: mild distress Results - Labs CBC & Chem 7: 01/04/19 05:16 01/04/19 05:16 Labs: Laboratory Last Values WBC 10.2 K/mm3 (4.5-11.0) 01/04/19 05:16 RBC 4.76 M/mm3 (3.65-5.03) 01/04/19 05:16 Hgb 14.0 gm/dl (10.1-14.3) 01/04/19 05:16 Hct 41.5 % (30.3-42.9) 01/04/19 05:16 MCV 87 fl (79-97) 01/04/19 05:16 MCH 29 pg (28-32) 01/04/19 05:16 MCHC 34 % (30-34) 01/04/19 05:16 RDW 15.5 % (13.2-15.2) H 01/04/19 05:16 Plt Count 274 K/mm3 (140-440) 01/04/19 05:16 Lymph % (Auto) 20.7 % (13.4-35.0) 01/03/19 09:50 [place] % (Auto) 5.6 % (0.0-7.3) 01/03/19 09:50 Eos % (Auto) 6.5 % (0.0-4.3) H 01/03/19 09:50 Baso % (Auto) 1.1 % (0.0-1.8) 01/03/19 09:50 Lymph # 1.6 K/mm3 (1.2-5.4) 01/03/19 09:50 [place] # 0.4 K/mm3 (0.0-0.8) 01/03/19 09:50 Eos # 0.5 K/mm3 (0.0-0.4) H 01/03/19 09:50 Baso # 0.1 K/mm3 (0.0-0.1) 01/03/19 09:50 Add Manual Diff Complete 01/04/19 05:16 Total Counted 100 01/04/19 05:16 Seg Neutrophils % [employer] Delivery [employer] 01/04/19 05:16 Seg Neuts % (Manual) 93.0 % (40.0-70.0) H 01/04/19 05:16 0 % 01/04/19 05:16 6.0 % (13.4-35.0) L 01/04/19 05:16 Reactive Lymphs % (Man) 0 % 01/04/19 05:16 1.0 % (0.0-7.3) 01/04/19 05:16 0 % (0.0-4.3) 01/04/19 05:16 0 % (0.0-1.8) 01/04/19 05:16 0 % 01/04/19 05:16 0 % 01/04/19 05:16 0 % 01/04/19 05:16 0 % 01/04/19 05:16 Nucleated RBC % Not Reportable 01/04/19 05:16 Seg Neutrophils # 4.9 K/mm3 (1.8-7.7) 01/03/19 09:50 Seg Neutrophils # Man 9.5 K/mm3 (1.8-7.7) H 01/04/19 05:16 Band Neutrophils # 0.0 K/mm3 01/04/19 05:16 0.6 K/mm3 (1.2-5.4) L 01/04/19 05:16 Abs React Lymphs (Man) 0.0 K/mm3 01/04/19 05:16 0.1 K/mm3 (0.0-0.8) 01/04/19 05:16 0.0 K/mm3 (0.0-0.4) 01/04/19 05:16 0.0 K/mm3 (0.0-0.1) 01/04/19 05:16 0.0 K/mm3 01/04/19 05:16 0.0 K/mm3 01/04/19 05:16 0.0 K/mm3 01/04/19 05:16 Blast Cells # 0.0 K/mm3 01/04/19 05:16 WBC Morphology Not Reportable 01/04/19 05:16 Hypersegmented Neuts Not Reportable 01/04/19 05:16 Hyposegmented Neuts Not Reportable 01/04/19 05:16 Hypogranular Neuts Not Reportable 01/04/19 05:16 Not Reportable 01/04/19 05:16 Not Reportable 01/04/19 05:16 Not Reportable 01/04/19 05:16 Not Reportable 01/04/19 05:16 Not Reportable 01/04/19 05:16 Not Reportable 01/04/19 05:16 Consistent w auto 01/04/19 05:16 Not Reportable 01/04/19 05:16 Plt Clumps, EDTA Not Reportable 01/04/19 05:16 Not Reportable 01/04/19 05:16 Not Reportable 01/04/19 05:16 Not Reportable 01/04/19 05:16 Plt Morphology Comment Not Reportable 01/04/19 05:16 RBC Morphology Not Reportable 01/04/19 05:16 Dimorphic RBCs Not Reportable 01/04/19 05:16 Not Reportable 01/04/19 05:16 Not Reportable 01/04/19 05:16 Not Reportable 01/04/19 05:16 Few 01/04/19 05:16 Not Reportable 01/04/19 05:16 Not Reportable 01/04/19 05:16 Not Reportable 01/04/19 05:16 Not Reportable 01/04/19 05:16 Not Reportable 01/04/19 05:16 Not Reportable 01/04/19 05:16 Not Reportable 01/04/19 05:16 Not Reportable 01/04/19 05:16 Rare 01/04/19 05:16 Not Reportable 01/04/19 05:16 Not Reportable 01/04/19 05:16 Not Reportable 01/04/19 05:16 Not Reportable 01/04/19 05:16 Not Reportable 01/04/19 05:16 Not Reportable 01/04/19 05:16 Not Reportable 01/04/19 05:16 Acanthocytes (Spur) Not Reportable 01/04/19 05:16 Rouleaux Not Reportable 01/04/19 05:16 Not Reportable 01/04/19 05:16 Not Reportable 01/04/19 05:16 Not Reportable 01/04/19 05:16 Not Reportable 01/04/19 05:16 Hem Pathologist Commnt No 01/04/19 05:16 PT 12.3 Sec. (12.2-14.9) 01/03/19 09:50 INR 0.94 (0.87-1.13) 01/03/19 09:50 Sodium 136 mmol/L (137-145) L 01/04/19 05:16 Potassium 4.6 mmol/L (3.6-5.0) 01/04/19 05:16 Chloride 98.1 mmol/L (98-107) 01/04/19 05:16 Carbon Dioxide 26 mmol/L (22-30) D 01/04/19 05:16 17 mmol/L 01/04/19 05:16 BUN 10 mg/dL (7-17) 01/04/19 05:16 0.6 mg/dL (0.7-1.2) L 01/04/19 05:16 Estimated GFR > 60 ml/min 01/04/19 05:16 17 % 01/04/19 05:16 Glucose 290 mg/dL (65-100) H 01/04/19 05:16 POC Glucose 219 (70-105) H 01/05/19 08:15 Calcium 9.8 mg/dL (8.4-10.2) 01/04/19 05:16 0.50 mg/dL (0.1-1.2) 01/04/19 05:16 AST 7 units/L (5-40) 01/04/19 05:16 ALT 10 units/L (7-56) 01/04/19 05:16 110 units/L (35-129) 01/04/19 05:16 NT-Pro-B Natriuret Pep 104.4 pg/mL (0-900) 01/03/19 09:50 7.0 g/dL (6.3-8.2) 01/04/19 05:16 3.9 g/dL (3.9-5) 01/04/19 05:16 1.3 % 01/04/19 05:16 Active Medications - Current Medications Current Medications: Generic Name Dose Route Start Last Admin Trade Name Freq PRN Reason Stop Dose Admin Acetaminophen 650 mg 01/03/19 12:06 Tylenol PO Q4H PRN Pain MILD(1-3)/Fever >100.5/KHAN Acetaminophen/Hydrocodone Bitart 1 each 01/04/19 08:46 01/05/19 10:10 [place] 10/325 PO 1 each Q4H PRN Administration Pain , Severe (7-10) Albuterol 2.5 mg 01/03/19 12:06 01/05/19 09:05 Proventil IH 2.5 mg Q4HRT PRN Administration Shortness Of Breath Benzonatate 100 mg 01/03/19 23:30 01/05/19 05:27 Tessalon Perles PO 100 mg Q8HR VIC Administration Dextrose 50 ml 01/03/19 16:32 D50w (25gm) Syringe IV PRN PRN Hypoglycemia Escitalopram Oxalate 20 mg 01/04/19 10:00 01/05/19 09:30 Lexapro PO 20 mg DAILY VIC Administration Gabapentin 300 mg 01/03/19 18:15 01/05/19 01:49 Neurontin PO 300 mg Q8H VIC Administration Heparin Sodium (Porcine) 5,000 unit 01/05/19 10:00 01/05/19 09:31 Heparin SUB-Q 5,000 unit Q12HR VIC Administration Azithromycin 500 mg/ Sodium 250 mls @ 250 mls/hr 01/03/19 15:00 01/05/19 09:31 Chloride IV 01/07/19 10:59 250 mls/hr Q24HR VIC Administration Protocol Insulin Human Lispro 0 unit 01/03/19 18:00 01/05/19 05:27 Humalog SUB-Q 4 unit Q6HR VIC Administration Protocol Insulin Human Lispro 15 unit 01/04/19 07:30 01/05/19 08:58 Humalog SUB-Q 15 unit TIDAC VIC Administration Lisinopril 20 mg 01/04/19 10:00 01/05/19 09:30 Zestril PO 20 mg DAILY VIC Administration Lorazepam 0.5 mg 01/03/19 18:05 01/05/19 09:40 Ativan PO 0.5 mg BID PRN Administration Anxiety Methylprednisolone Sodium Succinate 40 mg 01/03/19 22:00 01/05/19 09:31 Solu-Medrol IV 40 mg Q12HR VIC Administration Ondansetron HCl 4 mg 01/03/19 12:06 Zofran IV Q8H PRN Nausea And Vomiting Pantoprazole Sodium 40 mg 01/03/19 14:00 01/05/19 09:31 Protonix PO 40 mg QDAY VIC Administration Sodium Chloride 10 ml 01/03/19 22:00 01/05/19 09:31 Sodium Chloride Flush Syringe 10 Ml IV 10 ml BID VIC Administration Sodium Chloride 10 ml 01/03/19 12:06 Sodium Chloride Flush Syringe 10 Ml IV PRN PRN LINE FLUSH
--- NOTE | 2019-01-05 13:44 | Progress Note ---
Assessment and Plan 53 y/o female with multiple medial issues and multiple allergies admitted with COPD exacerbation and chronic respiratory failure, noncompliance with therapy. 1. Agree with current medical regimen 2. Will review office records in regards to most recent sleep study 3. Suggest changing patient to PO steroids and taper over 2 weeks time (60x4, 40x4, 20x4, 10x4 then stop) 4. Encouraged smoking cessation. Would not discharge patient on nicotine patch. Patient's will smoke on these and obtain a double high, which could cause coronary vasospasm and myocardial infarction. 5. Weight loss Thank you for this consult. Will continue to follow with you. Subjective Date of service: 01/05/19 Interval history: Does not appear discharge is happening today. No acute events overnight night. Stable. Objective Vital Signs - 12hr 01/05/19 01/05/19 01/05/19 04:50 05:03 08:32 Temperature 97.5 F L 97.5 F L Pulse Rate 16 L Pulse Rate [ Anterior Bilateral] Respiratory 16 16 Rate Respiratory Rate [Anterior Bilateral] Blood Pressure 120/69 Blood Pressure 120/69 [Left] O2 Sat by Pulse 95 95 Oximetry 01/05/19 01/05/19 09:05 12:13 Temperature 98.2 F Pulse Rate 75 Pulse Rate [ 85 Anterior Bilateral] Respiratory 22 Rate Respiratory 17 Rate [Anterior Bilateral] Blood Pressure 146/68 Blood Pressure [Left] O2 Sat by Pulse 95 Oximetry Constitutional: no acute distress, alert, other (morbidly obese) Eyes: non-icteric ENT: oropharynx moist Neck: other (large in circumference) Effort: normal Ascultation: Bilateral: diminished breath sounds, wheezes Percussion: Bilateral: not dull Tactile fremitus: Bilateral: normal Cardiovascular: regular rate and rhythm Gastrointestinal: normoactive bowel sounds, soft, non-distended CBC and BMP: 01/04/19 05:16 01/04/19 05:16 ABG, PT/INR, D-dimer: PT/INR, D-dimer PT 12.3 Sec. (12.2-14.9) 01/03/19 09:50 INR 0.94 (0.87-1.13) 01/03/19 09:50 Abnormal lab findings: Abnormal Labs 01/03/19 01/03/19 01/03/19 09:50 09:50 16:34 Hct 43.0 H RDW 15.8 H Eos % (Auto) 6.5 H Eos # 0.5 H Seg Neuts % (Manual) Lymphocytes % (Manual) Seg Neutrophils # Man Lymphocytes # (Manual) Sodium Carbon Dioxide 33 H Creatinine Glucose 151 H POC Glucose 291 H Albumin 3.8 L 01/03/19 01/04/19 01/04/19 23:54 05:16 05:16 Hct RDW 15.5 H Eos % (Auto) Eos # Seg Neuts % (Manual) 93.0 H Lymphocytes % (Manual) 6.0 L Seg Neutrophils # Man 9.5 H Lymphocytes # (Manual) 0.6 L Sodium 136 L Carbon Dioxide Creatinine 0.6 L Glucose 290 H POC Glucose 309 H Albumin 01/04/19 01/04/19 01/04/19 06:25 07:34 11:38 Hct RDW Eos % (Auto) Eos # Seg Neuts % (Manual) Lymphocytes % (Manual) Seg Neutrophils # Man Lymphocytes # (Manual) Sodium Carbon Dioxide Creatinine Glucose POC Glucose 264 H 254 H 239 H Albumin 01/04/19 01/05/19 01/05/19 16:52 00:09 04:58 Hct RDW Eos % (Auto) Eos # Seg Neuts % (Manual) Lymphocytes % (Manual) Seg Neutrophils # Man Lymphocytes # (Manual) Sodium Carbon Dioxide Creatinine Glucose POC Glucose 265 H 251 H 251 H Albumin 01/05/19 01/05/19 08:15 12:22 Hct RDW Eos % (Auto) Eos # Seg Neuts % (Manual) Lymphocytes % (Manual) Seg Neutrophils # Man Lymphocytes # (Manual) Sodium Carbon Dioxide Creatinine Glucose POC Glucose 219 H 265 H Albumin
[2019-01-06] MEDS: HumaLOG SUB-Q SCH ×7 (00:53→19:01)
[2019-01-06] MEDS: PROVENTIL IH PRN (01:31)
[2019-01-06] MEDS: NEURONTIN PO SCH ×3 (02:12→19:00)
[2019-01-06] MEDS: TESSALON PERLES PO SCH ×2 (06:03→13:39)
[2019-01-06] MEDS: NORCO 10/325 PO PRN ×3 (06:05→19:05)
[2019-01-06] MEDS: ATIVAN PO PRN (12:07)
[2019-01-06] MEDS: LEXAPRO PO SCH (12:07)
[2019-01-06] MEDS: ZESTRIL PO SCH (12:07)
[2019-01-06] MEDS: PROTONIX PO SCH (12:08)
[2019-01-06] MEDS: SOLU-Medrol IV SCH (12:08)
[2019-01-06] MEDS: ZITHROMAX 500 MG in NACL 0.9% 250ML 250 ML IV SCH (12:08)
[2019-01-06] MEDS: HEPARIN SUB-Q SCH (12:08)
[2019-01-06] MEDS: SODIUM CHLORIDE FLUSH SYRINGE 10 ML IV SCH (12:08)
--- NOTE | 2019-01-06 14:15 | Progress Note ---
Assessment and Plan 53 y/o female with multiple medial issues and multiple allergies admitted with COPD exacerbation and chronic respiratory failure, noncompliance with therapy. No new recs for today please see below. NO objection to discharge from a pulmon ruthy standpoint. 1. Agree with current medical regimen 2. Will review office records in regards to most recent sleep study 3. Suggest changing patient to PO steroids and taper over 2 weeks time (60x4, 40x4, 20x4, 10x4 then stop) 4. Encouraged smoking cessation. Would not discharge patient on nicotine patch. Patient's will smoke on these and obtain a double high, which could cause coronary vasospasm and myocardial infarction. 5. Weight loss Thank you for this consult. Will continue to follow with you. Subjective Date of service: 01/06/19 Interval history: No acute events. Pulm status is baseline. Objective Vital Signs - 12hr 01/06/19 01/06/19 01/06/19 04:11 04:15 07:23 Temperature 97.5 F L 97.5 F L Pulse Rate 68 Respiratory 18 18 Rate Blood Pressure 141/86 O2 Sat by Pulse 96 97 Oximetry 01/06/19 01/06/19 11:42 12:07 Temperature 97.9 F Pulse Rate 80 80 Respiratory 24 Rate Blood Pressure 151/78 151/78 O2 Sat by Pulse 93 Oximetry Constitutional: no acute distress, alert, other (morbidly obese) Eyes: non-icteric ENT: oropharynx moist Neck: other (large in circumference) Effort: normal Ascultation: Bilateral: diminished breath sounds, wheezes Percussion: Bilateral: not dull Tactile fremitus: Bilateral: normal Cardiovascular: regular rate and rhythm Gastrointestinal: normoactive bowel sounds, soft, non-distended CBC and BMP: 01/04/19 05:16 01/04/19 05:16 ABG, PT/INR, D-dimer: PT/INR, D-dimer PT 12.3 Sec. (12.2-14.9) 01/03/19 09:50 INR 0.94 (0.87-1.13) 01/03/19 09:50 Abnormal lab findings: Abnormal Labs 01/03/19 01/03/19 01/03/19 09:50 09:50 16:34 Hct 43.0 H RDW 15.8 H Eos % (Auto) 6.5 H Eos # 0.5 H Seg Neuts % (Manual) Lymphocytes % (Manual) Seg Neutrophils # Man Lymphocytes # (Manual) Sodium Carbon Dioxide 33 H Creatinine Glucose 151 H POC Glucose 291 H Albumin 3.8 L 01/03/19 01/04/19 01/04/19 23:54 05:16 05:16 Hct RDW 15.5 H Eos % (Auto) Eos # Seg Neuts % (Manual) 93.0 H Lymphocytes % (Manual) 6.0 L Seg Neutrophils # Man 9.5 H Lymphocytes # (Manual) 0.6 L Sodium 136 L Carbon Dioxide Creatinine 0.6 L Glucose 290 H POC Glucose 309 H Albumin 01/04/19 01/04/19 01/04/19 06:25 07:34 11:38 Hct RDW Eos % (Auto) Eos # Seg Neuts % (Manual) Lymphocytes % (Manual) Seg Neutrophils # Man Lymphocytes # (Manual) Sodium Carbon Dioxide Creatinine Glucose POC Glucose 264 H 254 H 239 H Albumin 01/04/19 01/05/19 01/05/19 16:52 00:09 04:58 Hct RDW Eos % (Auto) Eos # Seg Neuts % (Manual) Lymphocytes % (Manual) Seg Neutrophils # Man Lymphocytes # (Manual) Sodium Carbon Dioxide Creatinine Glucose POC Glucose 265 H 251 H 251 H Albumin 01/05/19 01/05/19 01/05/19 08:15 12:22 17:31 Hct RDW Eos % (Auto) Eos # Seg Neuts % (Manual) Lymphocytes % (Manual) Seg Neutrophils # Man Lymphocytes # (Manual) Sodium Carbon Dioxide Creatinine Glucose POC Glucose 219 H 265 H 299 H Albumin 01/06/19 01/06/19 01/06/19 00:13 05:05 11:17 Hct RDW Eos % (Auto) Eos # Seg Neuts % (Manual) Lymphocytes % (Manual) Seg Neutrophils # Man Lymphocytes # (Manual) Sodium Carbon Dioxide Creatinine Glucose POC Glucose 242 H 317 H 247 H Albumin
--- NOTE | 2019-01-06 15:24 | Discharge Summary ---
Providers - Providers Date of Admission: 01/03/19 12:06 Date of discharge: 01/06/19 Attending physician: RACHEL RINCON 01/03/19 13:29 Consult to Physician [CONS] Routine Comment: Consulting Provider: NOREEN DIGGS Physician Instructions: Reason For Exam: COPD Primary care physician: BETO MCKEON Hospitalization Condition: Stable Hospital course: Patient is a 53 yo woman from [facility] with a history of hypertension, IDDM, CHF, bipolar, schizophrenia, chronic pain syndrome, continued tobacco dependency despite chronic hypoxic respiratory failure on 2 liters of home O2 due to end stage COPD with hypoxemia resulting in cardiac arrest and intubation on 11/05/18 who presents with SOB * pCXR IMPRESSION: No acute findings. Acute exacerbation of chronic obstructive pulmonary disease (COPD): treat with o2, nebs, steroids, antitussive and finished abx with IV azithromycin 500mg x 3days Chronic respiratory failure with hypoxia: continue o2 Tobacco dependency: counseling done, I told her there was nothing more anyone could do if she continues to smoke, Bipolar disorder: supportive care, outpatient psychiatry F/U care. Diabetes mellitus type 2 with uncontrolled hyperglycemia: adjust insulin and adjust steroids once indicated, ADA diet, Insulin, accu check, hypoglycemia protocol HTN (hypertension): low salt diet, antihypertensives Obesity hypoventilation syndrome/DIMITRIOS, noncompliant with getting the CPAP machine from Dr. Estrada: counseling done, she just did not go back after the sleep study DVT prophylaxis: added sq heparin Morbid Obesity, bmi 47.4: counseling done Chronic pains syndrome due to "spinal fusion", asking for norco: pain control and counseling done Disposition: home with home health Disposition: / HOME [facility] Time spent for discharge: 36 minutes Core Measure Documentation - Palliative Care Palliative Care/ Comfort Measures: Not Applicable - Core Measures Any of the following diagnoses?: none - VTE Discharge Requirements Deep Vein Thrombosis/Pulmonary Embolism Present on Admission: No Has pt received <5 days of overlap therapy or INR<2.0: No Anticoagulant overlap therapy prescribed at discharge: No Contraindication No Overlap Therapy order at DC: Not Indicated Exam - Physical Exam Narrative exam: Gen: WDWN, NAD, Awake, Alert, Orientated x 3, bmi 47.4 HEENT: NCAT, EOMI, PERRL, OP Clear Neck: supple, no adenopathy, no thyromegaly, no JVD CVS/Heart: RRR, normal S1S2, pulses present bilaterally Chest/Lungs: improved diminished and wheezing bs bilateral, Symmetrical chest expansion, adequate air entry bilaterally GI/Abdomen: soft, NTND, good bowel sounds, no guarding or rebound /Bladder: no suprapubic tenderness, no CVA or paraspinal tenderness Extermity/Skin: no c/c/e, no obvious rash MSK: FROM x 4 Neuro: CN 2-12 grossly intact, no new focal deficits Psych: calm - Constitutional Vitals: Temp Pulse Resp BP Pulse Ox 97.9 F 80 24 151/78 93 01/06/19 11:42 01/06/19 12:07 01/06/19 11:42 01/06/19 12:07 01/06/19 11:42 Plan Activity: other (no strenous activity unless cleared by PCP) Diet: low salt, diabetic Additional Instructions: Go see Lung doctor to get CPAP machine Follow up with: BETO MCKEON MD [Primary Care Provider] - 7 Days CAROLE ESTRADA MD [Staff Physician] - 7 Days Prescriptions: predniSONE [Deltasone] 1 dose PO QDAY #52 tab Gabapentin 600 mg PO Q8H #90 Escitalopram Oxalate [Lexapro] 20 mg PO QDAY #30 tablet HYDROcodone/APAP 10-325 [[place] 10-325 mg TAB] 1 each PO Q4H PRN #15 tablet PRN Reason: Pain , Severe (7-10) ALBUTEROL NEB's [Proventil 0.083% NEBS] 2.5 mg IH QID PRN #60 nebu PRN Reason: Shortness Of Breath Budesonide/Formoterol Fumarate [Symbicort 160-4.5 Mcg Inhaler] 1 puff IH BID #60 hfa.aer.[email or web address] Benzonatate [Tessalon Perles] 100 mg PO Q8HR PRN #14 capsule PRN Reason: Cough Lisinopril [Zestril TAB] 20 mg PO DAILY #20 tablet
[2019-01-06 18:08] VITALS: BP 122/74
== END 2019-01-06 20:55 | disposition home health service (06) | DRG 189 ==
LOC: ED 08:52 → 3A 12:06
PROVIDERS: ADMIT Internal Medicine; ATTEND Internal Medicine
DX: J96.21 Acute and chronic respiratory failure with hypoxia (principal); J44.1 Chronic obstructive pulmonary disease with (acute) exacerbation; E66.2 Morbid (severe) obesity with alveolar hypoventilation; Z68.42 Body mass index [BMI] 45.0-49.9, adult; I11.0 Hypertensive heart disease with heart failure; I50.9 Heart failure, unspecified; F31.9 Bipolar disorder, unspecified; F20.9 Schizophrenia, unspecified; G89.4 Chronic pain syndrome; F17.200 Nicotine dependence, unspecified, uncomplicated; E11.65 Type 2 diabetes mellitus with hyperglycemia; M43.20 Fusion of spine, site unspecified; M19.90 Unspecified osteoarthritis, unspecified site; Z90.710 Acquired absence of both cervix and uterus; Z99.81 Dependence on supplemental oxygen; Z71.6 Tobacco abuse counseling; Z91.14 Patient's other noncompliance with medication regimen; Z79.4 Long term (current) use of insulin; Z83.3 Family history of diabetes mellitus; Z82.49 Family history of ischemic heart disease and other diseases of the circulatory system; Z88.0 Allergy status to penicillin; Z79.899 Other long term (current) drug therapy
CPT/HCPCS: 36415; 71045; 80048; 80053; 82962; 83880; 85007; 85025; 85610; 87116; 93005; 93010; 94640; 94644; 94760; 96365; 96375; 99406; G0378; C9113; J0456; J1644; J1815; J2920; J2930; J3246; J3475; J7050

== ENCOUNTER 2019-01-24 14:52 | Emergency (ER) | payer MEDICARE ==
[2019-01-24] MEDS ORDERED: ATROVENT IH ONE ×2 (15:42→15:55)
[2019-01-24] MEDS ORDERED: PROVENTIL IH ONE ×3 (15:42→18:38)
[2019-01-24] MEDS ORDERED: SOLU-Medrol IV ONE (15:55)
[2019-01-24] MEDS ORDERED: ADRENALINE P/F SUB-Q ONE (15:55)
[2019-01-24] MEDS ORDERED: TYLENOL PO ONE (15:56)
[2019-01-24] MEDS ORDERED: NACL 0.9% 250ML 250 ML IV ONE (15:56)
[2019-01-24] MEDS ORDERED: MAGNESIUM SULFATE 2GM/50ML 2 GM/50 ML BAG IV ONE (15:56)
--- NOTE | 2019-01-24 15:59 | Emergency Department Report ---
ED General Adult HPI - General Chief complaint: Dyspnea/Respdistress Stated complaint: ANN Time Seen by Provider: 01/24/19 15:15 Source: patient, EMS ( EMS documentation not available at time of chart dictation ), RN notes reviewed, old records reviewed Mode of arrival: Stretcher Limitations: Physical Limitation - History of Present Illness Initial comments: This is a 53-year-old female. I have evaluated the patient in the past. Patient has a past medical history of hypertension, diabetes, congestive heart failure, bipolar, schizophrenia, chronic pain syndrome, chronic tobacco dependency, end-stage COPD, on home oxygen, history of cardiac arrest, history of CPR, history of right-sided rib fractures in October of this year. Patient recently admitted to this hospital for COPD exacerbation, likely secondary to multiple factors. Today, the patient presents to the ER with a complaint of nontraumatic bilateral chest wall pain, back pain, cough, wheezing and shortness of breath, symptoms present for the past 3-4 days. The pain is aching, throbbing, increases with palpation and decreases with rest. Patient versus cough, wheezing and mucus production. Symptoms are getting worse over the past weekend. Patient denies posterior leg pain and leg swelling. She denies recent surgeries. No urinary symptoms. -: Gradual Location: chest, back Severity scale (0 -10): 7 Consistency: constant Improves with: other Worsens with: other - Related Data Previous Rx's Medication Instructions Recorded Last Taken Type Acetaminophen [Non-Aspirin Extra 500 mg PO Q6HR PRN #30 tablet 11/17/18 Unknown Rx Strength] ALBUTEROL NEB's [Proventil 0.083% 2.5 mg IH QID PRN #60 nebu 01/06/19 Unknown Rx NEBS] Benzonatate [Tessalon Perles] 100 mg PO Q8HR PRN #14 capsule 01/06/19 Unknown Rx Budesonide/Formoterol Fumarate 1 puff IH BID #60 hfa.aer.ad 01/06/19 Unknown Rx [Symbicort 160-4.5 Mcg Inhaler] Escitalopram Oxalate [Lexapro] 20 mg PO QDAY #30 tablet 01/06/19 Unknown Rx Lisinopril [Zestril TAB] 20 mg PO DAILY #20 tablet 01/06/19 Unknown Rx Lispro Insulin [HumaLOG] 15 unit SUB-Q TIDAC #1000 units 01/06/19 Unknown Rx Omeprazole 20 mg PO QDAY #30 01/06/19 11/17/18 Rx predniSONE [Deltasone] 1 dose PO QDAY #52 tab 01/06/19 Unknown Rx Albuterol Sulfate [Albuterol 0.63% 0.63 mg IH Q4HR PRN #2 ml 01/24/19 Unknown Rx NEBS] Albuterol Sulfate [Proair 90 mcg IH Q4HR PRN #2 aer.pow.ba 01/24/19 Unknown Rx Respiclick] Benzonatate [Tessalon Perles] 100 mg PO Q8HR PRN #30 capsule 01/24/19 Unknown Rx DOXYCYCLINE Hyclate [Vibramycin] 100 mg PO Q12HR #10 capsule 01/24/19 Unknown Rx Ibuprofen [Motrin] 600 mg PO Q8H PRN #30 tablet 01/24/19 Unknown Rx Ipratropium (Nf) [Atrovent] 2 puff IH Q6HR PRN #1 inha 01/24/19 Unknown Rx Ipratropium [Atrovent NEB] 0.5 mg IH Q4HR #2 ml 01/24/19 Unknown Rx predniSONE [Deltasone] 40 mg PO QDAY #8 tab 01/24/19 Unknown Rx Allergies Allergy/AdvReac Type Severity Reaction Status Date / Time Penicillins Allergy Angioedema Verified 09/14/18 13:55 bupropion HCl AdvReac Unknown Verified 09/14/18 13:55 [From Wellbutrin] divalproex sodium AdvReac Unknown Verified 09/14/18 13:55 [From Depakote] fluoxetine HCl [From Prozac] AdvReac Unknown Verified 09/14/18 13:55 lithium AdvReac Unknown Verified 09/14/18 13:55 ED Review of Systems ROS: Stated complaint: ANN Other details as noted in HPI Constitutional: malaise, weakness Eyes: denies: eye discharge ENT: congestion Respiratory: cough, shortness of breath, SOB with exertion, SOB at rest, wheezing Cardiovascular: chest pain (chest wall pain) Gastrointestinal: denies: abdominal pain Genitourinary: denies: dysuria Musculoskeletal: back pain, myalgia Skin: denies: lesions Neurological: weakness Psychiatric: anxiety ED Past Medical Hx - Past Medical History Previous Medical History?: Yes Hx Hypertension: Yes Hx Heart Attack/AMI: No Hx Congestive Heart Failure: Yes Hx Diabetes: Yes Hx Deep Vein Thrombosis: No Hx Pulmonary Embolism: No Hx Liver Disease: No Hx Arthritis: Yes Hx Psychiatric Treatment: Yes (Bipolar, Schzioaffective) Hx Asthma: Yes Hx COPD: Yes Hx Tuberculosis: No Additional medical history: Bronchitis, Home O2 2 liters, Morbid Obesity, - Surgical History Past Surgical History?: Yes Hx Coronary Stent: No Hx Pacemaker: No Hx Internal Defibrillator: No Additional Surgical History: spinal fusion, left hip, Hysterectomy - Social History Smoking Status: Current Every Day Smoker Substance Use Type: None - Medications Home Medications: Home Medications Medication Instructions Recorded Confirmed Last Taken Type Acetaminophen [Non-Aspirin Extra 500 mg PO Q6HR PRN #30 tablet 11/17/18 01/03/19 Unknown Rx Strength] ALBUTEROL NEB's [Proventil 0.083% 2.5 mg IH QID PRN #60 nebu 01/06/19 Unknown Rx NEBS] Benzonatate [Tessalon Perles] 100 mg PO Q8HR PRN #14 capsule 01/06/19 Unknown Rx Budesonide/Formoterol Fumarate 1 puff IH BID #60 hfa.aer.ad 01/06/19 Unknown Rx [Symbicort 160-4.5 Mcg Inhaler] Escitalopram Oxalate [Lexapro] 20 mg PO QDAY #30 tablet 01/06/19 Unknown Rx Lisinopril [Zestril TAB] 20 mg PO DAILY #20 tablet 01/06/19 Unknown Rx Lispro Insulin [HumaLOG] 15 unit SUB-Q TIDAC #1000 units 01/06/19 Unknown Rx Omeprazole 20 mg PO QDAY #30 01/06/19 01/03/19 11/17/18 Rx predniSONE [Deltasone] 1 dose PO QDAY #52 tab 01/06/19 Unknown Rx Albuterol Sulfate [Albuterol 0.63% 0.63 mg IH Q4HR PRN #2 ml 01/24/19 Unknown Rx NEBS] Albuterol Sulfate [Proair 90 mcg IH Q4HR PRN #2 aer.pow.ba 01/24/19 Unknown Rx Respiclick] Benzonatate [Tessalon Perles] 100 mg PO Q8HR PRN #30 capsule 01/24/19 Unknown Rx DOXYCYCLINE Hyclate [Vibramycin] 100 mg PO Q12HR #10 capsule 01/24/19 Unknown Rx Ibuprofen [Motrin] 600 mg PO Q8H PRN #30 tablet 01/24/19 Unknown Rx Ipratropium (Nf) [Atrovent] 2 puff IH Q6HR PRN #1 inha 01/24/19 Unknown Rx Ipratropium [Atrovent NEB] 0.5 mg IH Q4HR #2 ml 01/24/19 Unknown Rx predniSONE [Deltasone] 40 mg PO QDAY #8 tab 01/24/19 Unknown Rx ED Physical Exam - General Limitations: No Limitations General appearance: alert, in distress, obese - Head Head exam: Present: atraumatic, normocephalic - Eye Eye exam: Present: normal appearance, EOMI. Absent: nystagmus - ENT ENT exam: Present: normal exam, normal orophraynx, mucous membranes moist, normal external ear exam - Neck Neck exam: Present: normal inspection, full ROM. Absent: tenderness, meningismus - Respiratory Respiratory exam: Present: respiratory distress, wheezes, rhonchi, chest wall tenderness - Cardiovascular Cardiovascular Exam: Present: regular rate, normal rhythm, normal heart sounds. Absent: bradycardia, tachycardia, irregular rhythm, systolic murmur, diastolic murmur, rubs, gallop - GI/Abdominal GI/Abdominal exam: Present: soft. Absent: distended, tenderness, guarding, rebound, rigid, pulsatile mass - Extremities Exam Extremities exam: Present: normal inspection, full ROM, other (2+ pulses noted in the bilateral upper, lower extremities. There is no long bone tenderness. Musculoskeletal compartments are soft. The pelvis is stable.). Absent: calf tenderness - Back Exam Back exam: Present: normal inspection, full ROM, paraspinal tenderness - Neurological Exam Neurological exam: Present: alert, other (there is no facial droop. The tongue is midline. Extraocular movements are intact bilaterally. Patient speaking in full complete sentences. Shoulder shrug is intact bilaterally. Hearing is grossly intact bilaterally. Visual acuity intact to finger counting and color perception at a close distance. 5/5 strength 4 extremities. Sensation intact to light touch in 4 extremities.). Absent: motor sensory deficit - Psychiatric Psychiatric exam: Present: anxious - Skin Skin exam: Present: warm, dry, intact, normal color. Absent: rash ED Course Vital Signs 0901/24/19 01/24/19 15:20 15:42 16:43 Temperature 98.3 F Pulse Rate 88 80 Pulse Rate [ Bilateral] Respiratory 16 16 22 Rate Respiratory Rate [Bilateral ] Blood Pressure 142/88 Blood Pressure 109/67 [Left] O2 Sat by Pulse 99 90 92 Oximetry 01/24/19 01/24/19 01/24/19 17:27 18:13 19:20 Temperature 97.8 F Pulse Rate 97 H Pulse Rate [ 80 Bilateral] Respiratory 21 21 Rate Respiratory 17 Rate [Bilateral ] Blood Pressure Blood Pressure 121/63 [Left] O2 Sat by Pulse 94 Oximetry - Reevaluation(s) Reevaluation #1: 01/24/19 16:18 Differential diagnosis, including not limited to: COPD exacerbation, pneumonia, bronchitis, costochondritis, tobacco dependency, pulmonary hypertension, obstructive sleep apnea, pulmonary embolism\ Assessment and plan: 53-year-old female with chest wall pain, cough, wheezing, back pain, shortness of breath, hypoxia, suspect exacerbation of underlying respiratory disease. Patient is somewhat hypoxic initially, given poor mobility at baseline, recent hospitalization, we will send d-dimer to risk stratify for pulmonary embolism, although, I think it is unlikely the patient has a pulmonary embolus at this time. We will treat her pain with nonnarcotic pain medication, and she was albuterol, Atrovent, steroids, magnesium. Patient has tolerated prednisone in the past. Reevaluation #2: 01/24/19 19:00 Wheezing is somewhat improved, still asking for pain medication, d-dimer is negative. Given that symptoms present for greater than 8 hours, and present for multiple days, with one negative troponin, this is very unlikely to be acute coronary syndrome. Patient asking for pain medication, informed that given her history, only Motrin, ibuprofen, Tylenol, topical lidocaine appropriate. We will not dispense narcotics at this time. Reevaluation #3: 01/24/19 19:32 The patient is reassessed. She is now talking on the cell phone. Patient also eating on a meal tray. She does not appear to be in any acute distress. Patient may be discharged back to her facility with a trial of outpatient therapy. Requested refill on benzodiazepine, stomach to follow up wi th her primary care doctor for that. Per questioned refill on insulin, she can follow up with the primary care doctor for that. 01/26/19 06:00 ED Medical Decision Making - Lab Data Result diagrams: 01/24/19 16:41 01/24/19 16:41 Vital Signs 01/24/19 01/24/19 15:20 15:42 Temperature 98.3 F Pulse Rate 88 Respiratory 16 16 Rate Blood Pressure 142/88 O2 Sat by Pulse 99 90 Oximetry - EKG Data -: EKG Interpreted by Me EKG shows normal: sinus rhythm Rate: normal - EKG Data When compared to previous EKG there are: no significant change 01/24/19 16:19 This EKG is limited by motion artifact. This is a sinus rhythm with a QTC of 443 ms, there is a normal axis, there is motion artifact, the EKG is abnormal, the EKG is not consistent with ST elevation myocardial infarction. The EKG appears to be unchanged from prior EKG from 2018. - Radiology Data Radiology results: pending, image reviewed xr chest negative Critical Care Time: Yes Critical care time in (mins) excluding proc time.: 35 Critical care attestation.: If time is entered above; I have spent that time in minutes in the direct care of this critically ill patient, excluding procedure time. ED Disposition Clinical Impression: COPD exacerbation Disposition: DC-01 TO HOME OR SELFCARE Is pt being admited?: No Does the pt Need Aspirin: No Condition: Stable Instructions: Chronic Bronchitis (ED) Additional Instructions: Take medications as needed/directed. Continue home oxygen therapy, and CPAP at night, if patient is supposed to use CPAP at night. Strongly recommend the patient stopped smoking, and lose weight as tolerated. Take a breathing medication, steroids as needed/directed, cough medication, pain medication as needed/directed. Recommend follow-up in 2-3 days for repeat checkup/evaluation. Return to the emergency room right away with new, worsening or different symptoms, or symptoms not present on the initial emergency room evaluation. Recommend following up with a primary care doctor or medicaid biller within the next 7-10 days. Prescriptions: Albuterol Sulfate [Albuterol 0.63% NEBS] 0.63 mg IH Q4HR PRN #2 ml PRN Reason: Wheezing Ipratropium (Nf) [Atrovent] 2 puff IH Q6HR PRN #1 inha PRN Reason: Wheezing Ipratropium [Atrovent NEB] 0.5 mg IH Q4HR #2 ml predniSONE [Deltasone] 40 mg PO QDAY #8 tab Ibuprofen [Motrin] 600 mg PO Q8H PRN #30 tablet PRN Reason: Pain Albuterol Sulfate [Proair Respiclick] 90 mcg IH Q4HR PRN #2 aer.pow.ba PRN Reason: Wheezing Benzonatate [Tessalon Perles] 100 mg PO Q8HR PRN #30 capsule PRN Reason: Cough DOXYCYCLINE Hyclate [Vibramycin] 100 mg PO Q12HR #10 capsule Referrals: CHAD CONNER MD [Staff Physician] - 3-5 Days MERVIN GALEANA MD [Staff Physician] - 3-5 Days
--- NOTE | 2019-01-24 16:52 | XRay Report ---
CHEST 1 VIEW INDICATION / CLINICAL INFORMATION: Dyspnea. COMPARISON: None available. FINDINGS: SUPPORT DEVICES: None. HEART / MEDIASTINUM: No significant abnormality. LUNGS / PLEURA: No significant pulmonary or pleural abnormality. No pneumothorax. ADDITIONAL FINDINGS: No significant additional findings. IMPRESSION: 1. No acute findings. Signer Name: Rao Florence MD Signed: 01/24/2019 4:47 PM Workstation Name: [id number]
[2019-01-24 17:03] LABS: Basophils % (Auto) 0.7 % (0.0-1.8); Eosinophils # (Auto) 0.3 K/mm3 (0.0-0.4); Hematocrit 42.3 % (30.3-42.9); Hemoglobin 13.9 gm/dl (10.1-14.3); Lymphocytes % (Auto) 28.2 % (13.4-35.0); Mean Corpuscular HGB Conc 33 % (30-34); Mean Corpuscular Volume 88 fl (79-97); Monocytes # (Auto) 0.4 K/mm3 (0.0-0.8); Monocytes % (Auto) 5.4 % (0.0-7.3); Platelet Count 285 K/mm3 (140-440); Red Cell Distribution Width 15.6 % (13.2-15.2)
[2019-01-24] MEDS ORDERED: LIDODERM 5% TD STA (17:04)
[2019-01-24 17:06] LABS: INR 0.92 (0.87-1.13); Partial Thromboplastin Time 27.3 Sec. (24.2-36.6)
[2019-01-24 17:14] LABS: BUN/Creatinine Ratio 20; Blood Urea Nitrogen 12 mg/dL (7-17); Calcium 9.8 mg/dL (8.4-10.2); Hemolysis Index 15
[2019-01-24] MEDS ORDERED: TESSALON PERLES PO ONE (19:00)
[2019-01-24 20:10] VITALS: BP 121/63
== END 2019-01-24 20:25 | disposition home or self-care (01) ==
LOC: ED 14:52
DX: J44.1 Chronic obstructive pulmonary disease with (acute) exacerbation (principal); I11.0 Hypertensive heart disease with heart failure; I50.9 Heart failure, unspecified; E11.9 Type 2 diabetes mellitus without complications; M19.90 Unspecified osteoarthritis, unspecified site; F31.9 Bipolar disorder, unspecified; F25.9 Schizoaffective disorder, unspecified; E66.01 Morbid (severe) obesity due to excess calories; F17.200 Nicotine dependence, unspecified, uncomplicated; Z90.710 Acquired absence of both cervix and uterus; Z79.899 Other long term (current) drug therapy; Z68.42 Body mass index [BMI] 45.0-49.9, adult; Z88.0 Allergy status to penicillin; Z88.1 Allergy status to other antibiotic agents; Z88.8 Allergy status to other drugs, medicaments and biological substances
CPT/HCPCS: 36415; 71045; 80048; 82550; 82962; 83735; 84484; 85025; 85379; 85610; 85730; 93005; 93010; 94640; 96365; 96366; 96372; 96375; 99291; J0171; J2930; J3475; J7050; 94644

== ENCOUNTER 2019-02-17 23:27 | Emergency (ER) | payer MEDICARE ==
[2019-02-17] MEDS ORDERED: MAGNESIUM SULFATE 2 GM/50 ML BAG IV ONE (23:46)
[2019-02-17] MEDS ORDERED: IPRATROPIUM 0.02% NEBU 2.5 ML IH ONE (23:46)
[2019-02-17] MEDS ORDERED: methylPREDNISolone Sod Succinate 125 MG/2 ML INJ IV ONE (23:46)
[2019-02-17] MEDS ORDERED: ALBUTEROL 2.5 MG/3 ML NEBU IH ONE (23:46)
[2019-02-18 00:28] LABS: Basophils # (Auto) 0.1 K/mm3 (0.0-0.1); Basophils % (Auto) 1.2 % (0.0-1.8); Eosinophils # (Auto) 0.1 K/mm3 (0.0-0.4); Eosinophils % (Auto) 1.3 % (0.0-4.3); Hematocrit 43.6 % (30.3-42.9); Lymphocytes # (Auto) 2.7 K/mm3 (1.2-5.4); Lymphocytes % (Auto) 29.9 % (13.4-35.0); Mean Corpuscular HGB Conc 32 % (30-34); Mean Corpuscular Volume 89 fl (79-97); Monocytes # (Auto) 0.4 K/mm3 (0.0-0.8); Monocytes % (Auto) 4.6 % (0.0-7.3); Platelet Count 232 K/mm3 (140-440); Red Blood Count 4.91 M/mm3 (3.65-5.03)
[2019-02-18 00:33] LABS: INR 0.95 (0.87-1.13); Partial Thromboplastin Time 25.8 Sec. (24.2-36.6)
[2019-02-18 00:44] LABS: BUN/Creatinine Ratio 18; Blood Urea Nitrogen 14 mg/dL (7-17); Calcium 9.7 mg/dL (8.4-10.2); Hemolysis Index 15
[2019-02-18] MEDS ORDERED: IBUPROFEN 800 MG TAB ONE (00:54)
[2019-02-18] MEDS ORDERED: IBUPROFEN 800 MG TAB PO ONE (00:59)
--- NOTE | 2019-02-18 01:00 | XRay Report ---
CHEST 1 VIEW 02/18/2019 12:07 AM INDICATION / CLINICAL INFORMATION: sob, cough. COMPARISON: Chest x-ray on 01/24/2019. FINDINGS: SUPPORT DEVICES: None. HEART / MEDIASTINUM: No significant abnormality. LUNGS / PLEURA: No significant pulmonary or pleural abnormality. No pneumothorax. ADDITIONAL FINDINGS: No significant additional findings. IMPRESSION: 1. No acute findings. Signer Name: Charlie Méndez MD Signed: 02/18/2019 12:56 AM Workstation Name: [id number]
--- NOTE | 2019-02-18 01:01 | Emergency Department Report ---
ED Shortness of Breath HPI - General Chief Complaint: Dyspnea/Respdistress Stated Complaint: ANN Time Seen by Provider: 02/17/19 23:43 Source: patient, EMS Mode of arrival: Stretcher Limitations: No Limitations - History of Present Illness Initial Comments: 53-year-old female with history of COPD, CHF presents to ED with cough, shortness of breath 1 week. Patient reports cough productive of yellow sputum. Reports body aches as well as subjective fever. Patient states she has been doing breathing treatments at home. Chronically on 2 L of O2, had to increase to 3 L today. EMS was called, albuterol 5 mg neb treatment was given. MD Complaint: shortness of breath -: week(s) (1) Severity: moderate Consistency: constant Improves With: oxygen, bronchodilators Worsens With: nothing Known History Of: COPD, congestive heart failure Associated Symptoms: fever, cough, sputum production Treatments Prior to Arrival: bronchodilator - Related Data Home Oxygen Therapy: Yes Home Oxygen Amount: 2 Liters Previous Rx's Medication Instructions Recorded Last Taken Type Acetaminophen [Non-Aspirin Extra 500 mg PO Q6HR PRN #30 tablet 11/17/18 Unknown Rx Strength] ALBUTEROL NEB's [Proventil 0.083% 2.5 mg IH QID PRN #60 nebu 01/06/19 Unknown Rx NEBS] Benzonatate [Tessalon Perles] 100 mg PO Q8HR PRN #14 capsule 01/06/19 Unknown Rx Budesonide/Formoterol Fumarate 1 puff IH BID #60 hfa.aer.ad 01/06/19 Unknown Rx [Symbicort 160-4.5 Mcg Inhaler] Escitalopram Oxalate [Lexapro] 20 mg PO QDAY #30 tablet 01/06/19 Unknown Rx Lisinopril [Zestril TAB] 20 mg PO DAILY #20 tablet 01/06/19 Unknown Rx Lispro Insulin [HumaLOG] 15 unit SUB-Q TIDAC #1000 units 01/06/19 Unknown Rx Omeprazole 20 mg PO QDAY #30 01/06/19 11/17/18 Rx predniSONE [Deltasone] 1 dose PO QDAY #52 tab 01/06/19 Unknown Rx Albuterol Sulfate [Albuterol 0.63% 0.63 mg IH Q4HR PRN #2 ml 01/24/19 Unknown Rx NEBS] Albuterol Sulfate [Proair 90 mcg IH Q4HR PRN #2 aer.pow.ba 01/24/19 Unknown Rx Respiclick] Benzonatate [Tessalon Perles] 100 mg PO Q8HR PRN #30 capsule 01/24/19 Unknown Rx DOXYCYCLINE Hyclate [Vibramycin] 100 mg PO Q12HR #10 capsule 01/24/19 Unknown Rx Ibuprofen [Motrin] 600 mg PO Q8H PRN #30 tablet 01/24/19 Unknown Rx Ipratropium (Nf) [Atrovent] 2 puff IH Q6HR PRN #1 inha 01/24/19 Unknown Rx Ipratropium [Atrovent NEB] 0.5 mg IH Q4HR #2 ml 01/24/19 Unknown Rx predniSONE [Deltasone] 40 mg PO QDAY #8 tab 01/24/19 Unknown Rx Albuterol Sulfate [Proventil Hfa] 2 puff IH Q4HR PRN #1 hfa.aer.ad 02/18/19 Unknown Rx Benzonatate [Tessalon Perles] 100 mg PO Q8HR PRN #20 capsule 02/18/19 Unknown Rx predniSONE [Deltasone] 50 mg PO QDAY #5 tab 02/18/19 Unknown Rx Allergies Allergy/AdvReac Type Severity Reaction Status Date / Time Penicillins Allergy Angioedema Verified 09/14/18 13:55 bupropion HCl AdvReac Unknown Verified 09/14/18 13:55 [From Wellbutrin] divalproex sodium AdvReac Unknown Verified 09/14/18 13:55 [From Depakote] fluoxetine HCl [From Prozac] AdvReac Unknown Verified 09/14/18 13:55 lithium AdvReac Unknown Verified 09/14/18 13:55 ED Review of Systems ROS: Stated complaint: ANN Other details as noted in HPI Comment: All other systems reviewed and negative Constitutional: fever Respiratory: cough, shortness of breath, wheezing Cardiovascular: denies: chest pain Musculoskeletal: myalgia ED Past Medical Hx - Past Medical History Previous Medical History?: Yes Hx Hypertension: Yes Hx Heart Attack/AMI: No Hx Congestive Heart Failure: Yes Hx Diabetes: Yes Hx Deep Vein Thrombosis: No Hx Pulmonary Embolism: No Hx Liver Disease: No Hx Arthritis: Yes Hx Psychiatric Treatment: Yes (Bipolar, Schzioaffective) Hx Asthma: Yes Hx COPD: Yes Hx Tuberculosis: No Additional medical history: Bronchitis, Home O2 2 liters, Morbid Obesity, - Surgical History Past Surgical History?: Yes Hx Coronary Stent: No Hx Pacemaker: No Hx Internal Defibrillator: No Additional Surgical History: spinal fusion, left hip, Hysterectomy - Social History Smoking Status: Current Every Day Smoker Substance Use Type: Marijuana - Medications Home Medications: Home Medications Medication Instructions Recorded Confirmed Last Taken Type Acetaminophen [Non-Aspirin Extra 500 mg PO Q6HR PRN #30 tablet 11/17/18 01/03/19 Unknown Rx Strength] ALBUTEROL NEB's [Proventil 0.083% 2.5 mg IH QID PRN #60 nebu 01/06/19 Unknown Rx NEBS] Benzonatate [Tessalon Perles] 100 mg PO Q8HR PRN #14 capsule 01/06/19 Unknown Rx Budesonide/Formoterol Fumarate 1 puff IH BID #60 hfa.aer.ad 01/06/19 Unknown Rx [Symbicort 160-4.5 Mcg Inhaler] Escitalopram Oxalate [Lexapro] 20 mg PO QDAY #30 tablet 01/06/19 Unknown Rx Lisinopril [Zestril TAB] 20 mg PO DAILY #20 tablet 01/06/19 Unknown Rx Lispro Insulin [HumaLOG] 15 unit SUB-Q TIDAC #1000 units 01/06/19 Unknown Rx Omeprazole 20 mg PO QDAY #30 01/06/19 01/03/19 11/17/18 Rx predniSONE [Deltasone] 1 dose PO QDAY #52 tab 01/06/19 Unknown Rx Albuterol Sulfate [Albuterol 0.63% 0.63 mg IH Q4HR PRN #2 ml 01/24/19 Unknown Rx NEBS] Albuterol Sulfate [Proair 90 mcg IH Q4HR PRN #2 aer.pow.ba 01/24/19 Unknown Rx Respiclick] Benzonatate [Tessalon Perles] 100 mg PO Q8HR PRN #30 capsule 01/24/19 Unknown Rx DOXYCYCLINE Hyclate [Vibramycin] 100 mg PO Q12HR #10 capsule 01/24/19 Unknown Rx Ibuprofen [Motrin] 600 mg PO Q8H PRN #30 tablet 01/24/19 Unknown Rx Ipratropium (Nf) [Atrovent] 2 puff IH Q6HR PRN #1 inha 01/24/19 Unknown Rx Ipratropium [Atrovent NEB] 0.5 mg IH Q4HR #2 ml 01/24/19 Unknown Rx predniSONE [Deltasone] 40 mg PO QDAY #8 tab 01/24/19 Unknown Rx Albuterol Sulfate [Proventil Hfa] 2 puff IH Q4HR PRN #1 hfa.aer.ad 02/18/19 Unknown Rx Benzonatate [Tessalon Perles] 100 mg PO Q8HR PRN #20 capsule 02/18/19 Unknown Rx predniSONE [Deltasone] 50 mg PO QDAY #5 tab 02/18/19 Unknown Rx ED Physical Exam - General Limitations: No Limitations General appearance: alert, in no apparent distress - Head Head exam: Present: atraumatic, normocephalic - Eye Eye exam: Present: normal appearance - ENT ENT exam: Present: mucous membranes moist - Neck Neck exam: Present: normal inspection - Respiratory Respiratory exam: Present: wheezes - Cardiovascular Cardiovascular Exam: Present: regular rate, normal rhythm - GI/Abdominal GI/Abdominal exam: Present: soft. Absent: distended, tenderness - Extremities Exam Extremities exam: Present: normal inspection - Neurological Exam Neurological exam: Present: alert, oriented X3 - Psychiatric Psychiatric exam: Present: normal affect, normal mood - Skin Skin exam: Present: warm, dry, intact, normal color ED Course Vital Signs 02/17/19 02/18/19 02/18/19 23:36 00:01 01:00 Temperature 98.2 F Pulse Rate 74 74 Pulse Rate [ 71 Anterior Bilateral Throughout] Respiratory 21 21 Rate Respiratory 22 Rate [Anterior Bilateral Throughout] Blood Pressure 129/78 165/141 Blood Pressure 129/78 [Left] O2 Sat by Pulse 94 94 Oximetry 02/18/19 02/18/19 02/18/19 01:03 02:03 02:41 Temperature 98.2 F Pulse Rate 87 Pulse Rate [ Anterior Bilateral Throughout] Respiratory 16 16 21 Rate Respiratory Rate [Anterior Bilateral Throughout] Blood Pressure Blood Pressure 120/72 [Left] O2 Sat by Pulse 100 Oximetry ED Medical Decision Making - Lab Data Result diagrams: 02/18/19 00:00 02/18/19 00:00 - EKG Data -: EKG Interpreted by Me EKG shows normal: sinus rhythm, axis, intervals, QRS complexes, ST-T waves Rate: normal - EKG Data Interpretation: no acute changes - Radiology Data Radiology results: report reviewed, image reviewed - Medical Decision Making 53-year-old female with COPD exacerbation. Patient reports flulike symptoms over the last week, which include subjective fever, muscle aches, productive cough, wheezing. Albuterol nebs and Solu-Medrol given here in ED. Patient has history of CHF as well, however chest x-ray is normal, no evidence of pulmonary edema or pneumonia. After normal including BNP. Patient feeling much better after treatment. O2 sats normal on 2 L O2. Will discharge at this time. R eturn precautions given. Outpatient follow-up advised. - Differential Diagnosis copd, chf, flu, pneumonia Critical care attestation.: If time is entered above; I have spent that time in minutes in the direct care of this critically ill patient, excluding procedure time. ED Disposition Clinical Impression: COPD with acute exacerbation Disposition: DC-01 TO HOME OR SELFCARE Is pt being admited?: No Condition: Stable Instructions: Chronic Obstructive Pulmonary Disease (ED) Prescriptions: predniSONE [Deltasone] 50 mg PO QDAY #5 tab Albuterol Sulfate [Proventil Hfa] 2 puff IH Q4HR PRN #1 hfa.aer.ad PRN Reason: Wheezing Benzonatate [Tessalon Perles] 100 mg PO Q8HR PRN #20 capsule PRN Reason: Cough Referrals: PRIMARY CARE, [Primary Care Provider] - 3-5 Days Time of Disposition: 02:00
[2019-02-18] MEDS ORDERED: BENZONATATE 100 MG CAP PO ONE ×2 (02:33→02:40)
[2019-02-18 02:42] VITALS: BP 120/72
== END 2019-02-18 03:30 | disposition home or self-care (01) ==
LOC: ED 23:27
DX: J44.1 Chronic obstructive pulmonary disease with (acute) exacerbation (principal); I11.0 Hypertensive heart disease with heart failure; I50.9 Heart failure, unspecified; E11.9 Type 2 diabetes mellitus without complications; M19.90 Unspecified osteoarthritis, unspecified site; F31.9 Bipolar disorder, unspecified; F25.9 Schizoaffective disorder, unspecified; E66.01 Morbid (severe) obesity due to excess calories; Z68.42 Body mass index [BMI] 45.0-49.9, adult; F17.200 Nicotine dependence, unspecified, uncomplicated; F12.10 Cannabis abuse, uncomplicated; Z79.1 Long term (current) use of non-steroidal anti-inflammatories (NSAID); Z90.710 Acquired absence of both cervix and uterus; Z88.0 Allergy status to penicillin; Z88.5 Allergy status to narcotic agent; Z88.8 Allergy status to other drugs, medicaments and biological substances; Z79.899 Other long term (current) drug therapy; Z79.4 Long term (current) use of insulin
CPT/HCPCS: 36415; 71045; 80048; 83880; 84484; 85025; 85610; 85730; 93005; 93010; 94644; 96365; 96375; 99285; J2930; J3475

== ENCOUNTER 2019-02-18 16:30 | Inpatient (IN) | payer MEDICARE ==
[2019-02-18] MEDS ORDERED: IPRATROPIUM/ALBUTEROL SULFATE 3 ML AMPUL.NEB IH ONE (16:56)
[2019-02-18] MEDS ORDERED: methylPREDNISolone Sod Succinate 125 MG/2 ML INJ IV ONE (16:56)
[2019-02-18] MEDS ORDERED: MAGNESIUM SULFATE 2 GM/50 ML BAG IV ONE (16:56)
--- NOTE | 2019-02-18 17:49 | Emergency Department Report ---
ED General Adult HPI - General Chief complaint: Dyspnea/Respdistress Stated complaint: ANN Source: patient, EMS Mode of arrival: Stretcher Limitations: No Limitations - History of Present Illness Initial comments: This is a 53-year-old female was just discharged from this emergency department after midnight. She proceeded to smoke despite being on supplemental O2. She has had multiple admissions under similar circumstances. Her last admission was the current month: Hospitalization Condition: Stable Hospital course: Patient is a 53 yo woman from [facility] with a history of hypertension, IDDM, CHF, bipolar, schizophrenia, chronic pain syndrome, continued tobacco dependency despite chronic hypoxic respiratory failure on 2 liters of home O2 due to end stage COPD with hypoxemia resulting in cardiac arrest and intubation on 11/05/18 who presents with SOB pCXR IMPRESSION: No acute findings. Acute exacerbation of chronic obstructive pulmonary disease (COPD): treat with o2, nebs, steroids, antitussive and finished abx with IV azithromycin 500mg x 3days Chronic respiratory failure with hypoxia: continue o2 Tobacco dependency: counseling done, I told her there was nothing more anyone could do if she continues to smoke, Bipolar disorder: supportive care, outpatient psychiatry F/U care. Diabetes mellitus type 2 with uncontrolled hyperglycemia: adjust insulin and adjust steroids once indicated, ADA diet, Insulin, accu check, hypoglycemia prot ocol HTN (hypertension): low salt diet, antihypertensives Obesity hypoventilation syndrome/DIMITRIOS, noncompliant with getting the CPAP machine from Dr. Randolph: counseling done, she just did not go back after the sleep study DVT prophylaxis: added sq heparin Morbid Obesity, bmi 47.4: counseling done Chronic pains syndrome due to "spinal fusion", asking for norco: pain control and counseling done Disposition: home with home health Upon review the patient's workup last night she had a chest x-ray which showed no acute process and an EKG which showed no evidence of acute ischemia her labo ratory workup was likewise within acceptable limits. -: days(s) Associated Symptoms: denies other symptoms - Related Data Previous Rx's Medication Instructions Recorded Last Taken Type Acetaminophen [Non-Aspirin Extra 500 mg PO Q6HR PRN #30 tablet 11/17/18 Unknown Rx Strength] ALBUTEROL NEB's [Proventil 0.083% 2.5 mg IH QID PRN #60 nebu 01/06/19 Unknown Rx NEBS] Benzonatate [Tessalon Perles] 100 mg PO Q8HR PRN #14 capsule 01/06/19 Unknown Rx Budesonide/Formoterol Fumarate 1 puff IH BID #60 hfa.aer.ad 01/06/19 Unknown Rx [Symbicort 160-4.5 Mcg Inhaler] Escitalopram Oxalate [Lexapro] 20 mg PO QDAY #30 tablet 01/06/19 Unknown Rx Lisinopril [Zestril TAB] 20 mg PO DAILY #20 tablet 01/06/19 Unknown Rx Lispro Insulin [HumaLOG] 15 unit SUB-Q TIDAC #1000 units 01/06/19 Unknown Rx Omeprazole 20 mg PO QDAY #30 01/06/19 11/17/18 Rx predniSONE [Deltasone] 1 dose PO QDAY #52 tab 01/06/19 Unknown Rx Albuterol Sulfate [Albuterol 0.63% 0.63 mg IH Q4HR PRN #2 ml 01/24/19 Unknown Rx NEBS] Albuterol Sulfate [Proair 90 mcg IH Q4HR PRN #2 aer.pow.ba 01/24/19 Unknown Rx Respiclick] Benzonatate [Tessalon Perles] 100 mg PO Q8HR PRN #30 capsule 01/24/19 Unknown Rx DOXYCYCLINE Hyclate [Vibramycin] 100 mg PO Q12HR #10 capsule 01/24/19 Unknown Rx Ibuprofen [Motrin] 600 mg PO Q8H PRN #30 tablet 01/24/19 Unknown Rx Ipratropium (Nf) [Atrovent] 2 puff IH Q6HR PRN #1 inha 01/24/19 Unknown Rx Ipratropium [Atrovent NEB] 0.5 mg IH Q4HR #2 ml 01/24/19 Unknown Rx predniSONE [Deltasone] 40 mg PO QDAY #8 tab 01/24/19 Unknown Rx Albuterol Sulfate [Proventil Hfa] 2 puff IH Q4HR PRN #1 hfa.aer.ad 02/18/19 Unknown Rx Benzonatate [Tessalon Perles] 100 mg PO Q8HR PRN #20 capsule 02/18/19 Unknown Rx predniSONE [Deltasone] 50 mg PO QDAY #5 tab 02/18/19 Unknown Rx Allergies Allergy/AdvReac Type Severity Reaction Status Date / Time Penicillins Allergy Angioedema Verified 09/14/18 13:55 bupropion HCl AdvReac Unknown Verified 09/14/18 13:55 [From Wellbutrin] divalproex sodium AdvReac Unknown Verified 09/14/18 13:55 [From Depakote] fluoxetine HCl [From Prozac] AdvReac Unknown Verified 09/14/18 13:55 lithium AdvReac Unknown Verified 09/14/18 13:55 ED Review of Systems ROS: Stated complaint: ANN Other details as noted in HPI Constitutional: denies: chills, fever Eyes: denies: eye pain, eye discharge, vision change ENT: denies: ear pain, throat pain Respiratory: shortness of breath, wheezing. denies: cough Cardiovascular: denies: chest pain, palpitations Endocrine: no symptoms reported Gastrointestinal: denies: abdominal pain, nausea, diarrhea Genitourinary: denies: urgency, dysuria, discharge Musculoskeletal: denies: back pain, joint swelling, arthralgia Skin: denies: rash, lesions Neurological: denies: headache, weakness, paresthesias Psychiatric: denies: anxiety, depression Hematological/Lymphatic: denies: easy bleeding, easy bruising ED Past Medical Hx - Past Medical History Previous Medical History?: Yes Hx Hypertension: Yes Hx Heart Attack/AMI: No Hx Congestive Heart Failure: Yes Hx Diabetes: Yes Hx Deep Vein Thrombosis: No Hx Pulmonary Embolism: No Hx Liver Disease: No Hx Arthritis: Yes Hx Psychiatric Treatment: Yes (Bipolar, Schzioaffective) Hx Asthma: Yes Hx COPD: Yes Hx Tuberculosis: No Additional medical history: Bronchitis, Home O2 2 liters, Morbid Obesity, - Surgical History Past Surgical History?: Yes Hx Coronary Stent: No Hx Pacemaker: No Hx Internal Defibrillator: No Additional Surgical History: spinal fusion, left hip, Hysterectomy - Social History Smoking Status: Current Every Day Smoker Substance Use Type: Marijuana - Medications Home Medications: Home Medications Medication Instructions Recorded Confirmed Last Taken Type Acetaminophen [Non-Aspirin Extra 500 mg PO Q6HR PRN #30 tablet 11/17/18 01/03/19 Unknown Rx Strength] ALBUTEROL NEB's [Proventil 0.083% 2.5 mg IH QID PRN #60 nebu 01/06/19 Unknown Rx NEBS] Benzonatate [Tessalon Perles] 100 mg PO Q8HR PRN #14 capsule 01/06/19 Unknown Rx Budesonide/Formoterol Fumarate 1 puff IH BID #60 hfa.aer.ad 01/06/19 Unknown Rx [Symbicort 160-4.5 Mcg Inhaler] Escitalopram Oxalate [Lexapro] 20 mg PO QDAY #30 tablet 01/06/19 Unknown Rx Lisinopril [Zestril TAB] 20 mg PO DAILY #20 tablet 01/06/19 Unknown Rx Lispro Insulin [HumaLOG] 15 unit SUB-Q TIDAC #1000 units 01/06/19 Unknown Rx Omeprazole 20 mg PO QDAY #30 01/06/19 01/03/19 11/17/18 Rx predniSONE [Deltasone] 1 dose PO QDAY #52 tab 01/06/19 Unknown Rx Albuterol Sulfate [Albuterol 0.63% 0.63 mg IH Q4HR PRN #2 ml 01/24/19 Unknown Rx NEBS] Albuterol Sulfate [Proair 90 mcg IH Q4HR PRN #2 aer.pow.ba 01/24/19 Unknown Rx Respiclick] Benzonatate [Tessalon Perles] 100 mg PO Q8HR PRN #30 capsule 01/24/19 Unknown Rx DOXYCYCLINE Hyclate [Vibramycin] 100 mg PO Q12HR #10 capsule 01/24/19 Unknown Rx Ibuprofen [Motrin] 600 mg PO Q8H PRN #30 tablet 01/24/19 Unknown Rx Ipratropium (Nf) [Atrovent] 2 puff IH Q6HR PRN #1 inha 01/24/19 Unknown Rx Ipratropium [Atrovent NEB] 0.5 mg IH Q4HR #2 ml 01/24/19 Unknown Rx predniSONE [Deltasone] 40 mg PO QDAY #8 tab 01/24/19 Unknown Rx Albuterol Sulfate [Proventil Hfa] 2 puff IH Q4HR PRN #1 hfa.aer.ad 02/18/19 Unknown Rx Benzonatate [Tessalon Perles] 100 mg PO Q8HR PRN #20 capsule 02/18/19 Unknown Rx predniSONE [Deltasone] 50 mg PO QDAY #5 tab 02/18/19 Unknown Rx ED Physical Exam - General Limitations: No Limitations General appearance: alert, in no apparent distress - Head Head exam: Present: atraumatic, normocephalic - Eye Eye exam: Present: normal appearance. Absent: scleral icterus - ENT ENT exam: Present: mucous membranes moist - Neck Neck exam: Present: normal inspection. Absent: tenderness, meningismus - Respiratory Respiratory exam: Present: wheezes (bilaterally), prolonged expiratory. Absent: normal lung sounds bilaterally, respiratory distress - Cardiovascular Cardiovascular Exam: Present: regular rate, normal rhythm. Absent: systolic murmur, diastolic murmur, rubs, gallop - GI/Abdominal GI/Abdominal exam: Present: soft, normal bowel sounds. Absent: distended, tenderness, guarding, rebound - Extremities Exam Extremities exam: Present: normal inspection, normal capillary refill. Absent: pedal edema, joint swelling, calf tenderness - Back Exam Back exam: Present: normal inspection - Neurological Exam Neurological exam: Present: alert, oriented X3, CN II-XII intact. Absent: motor sensory deficit - Psychiatric Psychiatric exam: Present: normal affect, normal mood - Skin Skin exam: Present: warm, dry, intact, normal color. Absent: rash ED Course Vital Signs 02/18/19 02/18/19 02/18/19 16:41 16:43 16:45 Temperature 98.6 F Pulse Rate 98 H 105 H Pulse Rate [ Anterior Bilateral Throughout] Respiratory 18 16 Rate Respiratory Rate [Anterior Bilateral Throughout] Blood Pressure 148/65 148/65 139/89 O2 Sat by Pulse 95 94 94 Oximetry 02/18/19 02/18/19 02/18/19 17:00 17:15 17:30 Temperature Pulse Rate 98 H 99 H 97 H Pulse Rate [ Anterior Bilateral Throughout] Respiratory 21 22 14 Rate Respiratory Rate [Anterior Bilateral Throughout] Blood Pressure 155/88 159/104 179/97 O2 Sat by Pulse 94 95 93 Oximetry 02/18/19 02/18/19 02/18/19 17:45 18:00 18:07 Temperature Pulse Rate 103 H 100 H Pulse Rate [ 98 H Anterior Bilateral Throughout] Respiratory 20 22 22 Rate Respiratory 20 Rate [Anterior Bilateral Throughout] Blood Pressure 184/101 184/101 O2 Sat by Pulse 94 95 95 Oximetry - Reevaluation(s) Reevaluation #1: Did not initially think any necessary to repeat the patient's recently obtained studies. However the nurse informed me that the patient was now complaining of chest pain. Therefore an EKG chest x-ray and laboratory database disorder. Patient has been described to Dr. Hall who will be admitting her for further care and evaluation. Respiratory is still attempting to obtain a blood gas. The patient tells me Dr. Randolph has recommended that she utilize CPAP. I suspect that she will need CPAP at least at night and that she is suffering from a chronic hypercapnic respiratory failure. 02/18/19 18:00 02/18/19 18:39 Mild retention only on ABG ED Medical Decision Making - Lab Data Result diagrams: 02/18/19 18:15 02/18/19 18:15 Laboratory Results - last 24 hr 02/18/19 02/18/19 18:15 18:23 WBC 11.6 H RBC 4.86 Hgb 14.0 Hct 43.4 H MCV 89 MCH 29 MCHC 32 RDW 15.6 H Plt Count 239 Lymph % (Auto) 6.4 L [place] % (Auto) 3.4 Eos % (Auto) 0.0 Baso % (Auto) 0.2 Lymph # 0.7 L [place] # 0.4 Eos # 0.0 Baso # 0.0 Seg Neutrophils % 90.0 H Seg Neutrophils # 10.4 H POC ABG pH 7.367 POC ABG pCO2 46.7 H POC ABG pO2 78 L POC ABG HCO3 26.8 POC ABG Total CO2 28 POC ABG O2 Sat 95 POC ABG Base Excess 1 FiO2 28 Laboratory Results - last 24 hr 02/18/19 02/18/19 02/18/19 18:15 18:15 18:23 WBC 11.6 H RBC 4.86 Hgb 14.0 Hct 43.4 H MCV 89 MCH 29 MCHC 32 RDW 15.6 H Plt Count 239 Lymph % (Auto) 6.4 L [place] % (Auto) 3.4 Eos % (Auto) 0.0 Baso % (Auto) 0.2 Lymph # 0.7 L [place] # 0.4 Eos # 0.0 Baso # 0.0 Seg Neutrophils % 90.0 H Seg Neutrophils # 10.4 H PT 12.6 INR 0.97 APTT 24.5 POC ABG pH 7.367 POC ABG pCO2 46.7 H POC ABG pO2 78 L POC ABG HCO3 26.8 POC ABG Total CO2 28 POC ABG O2 Sat 95 POC ABG Base Excess 1 FiO2 28 Laboratory Results - last 24 hr 02/18/19 02/18/19 02/18/19 18:15 18:15 18:15 WBC 11.6 H RBC 4.86 Hgb 14.0 Hct 43.4 H MCV 89 MCH 29 MCHC 32 RDW 15.6 H Plt Count 239 Lymph % (Auto) 6.4 L [place] % (Auto) 3.4 Eos % (Auto) 0.0 Baso % (Auto) 0.2 Lymph # 0.7 L [place] # 0.4 Eos # 0.0 Baso # 0.0 Seg Neutrophils % 90.0 H Seg Neutrophils # 10.4 H PT 12.6 INR 0.97 APTT 24.5 POC ABG pH POC ABG pCO2 POC ABG pO2 POC ABG HCO3 POC ABG Total CO2 POC ABG O2 Sat POC ABG Base Excess FiO2 Sodium 141 Potassium 4.5 Chloride 102.9 Carbon Dioxide 24 Anion Gap 19 BUN 17 Creatinine 0.7 Estimated GFR > 60 BUN/Creatinine Ratio 24 Glucose 266 H Calcium 9.8 Total Bilirubin 0.40 Direct Bilirubin < 0.2 Indirect Bilirubin 0.2 AST 8 ALT 12 Alkaline Phosphatase 101 Total Creatine Kinase 43 CK-MB (CK-2) 1.9 CK-MB (CK-2) Rel Index 4.4 H Troponin T < 0.010 Total Protein 6.6 Albumin 3.7 L Albumin/Globulin Ratio 1.3 02/18/19 18:23 WBC RBC Hgb Hct MCV MCH MCHC RDW Plt Count Lymph % (Auto) [place] % (Auto) Eos % (Auto) Baso % (Auto) Lymph # [place] # Eos # Baso # Seg Neutrophils % Seg Neutrophils # PT INR APTT POC ABG pH 7.367 POC ABG pCO2 46.7 H POC ABG pO2 78 L POC ABG HCO3 26.8 POC ABG Total CO2 28 POC ABG O2 Sat 95 POC ABG Base Excess 1 FiO2 28 Sodium Potassium Chloride Carbon Dioxide Anion Gap BUN Creatinine Estimated GFR BUN/Creatinine Ratio Glucose Calcium Total Bilirubin Direct Bilirubin Indirect Bilirubin AST ALT Alkaline Phosphatase Total Creatine Kinase CK-MB (CK-2) CK-MB (CK-2) Rel Index Troponin T Total Protein Albumin Albumin/Globulin Ratio - EKG Data -: EKG Interpreted by Ca EKG shows normal: sinus rhythm, axis, intervals, QRS complexes, ST-T waves Rate: normal - EKG Data Interpretation: no acute changes - Radiology Data Radiology results: report reviewed (CXR unchanged) Critical care attestation.: If time is entered above; I have spent that time in minutes in the direct care of this critically ill patient, excluding procedure time. 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
--- NOTE | 2019-02-18 18:24 | XRay Report ---
CHEST 1 VIEW 5:59 PM INDICATION: hypertension. COMPARISON: Earlier today. FINDINGS: Support devices: Unchanged. Heart: Stable. Lungs/Pleura: Mild bibasilar opacities may be atelectatic. No significant effusion, no pneumothorax. IMPRESSION: 1. No significant change. Signer Name: Jaime Hampton MD Signed: 02/18/2019 6:19 PM Workstation Name: [id number]
[2019-02-18 18:32] LABS: Basophils % (Auto) 0.2 % (0.0-1.8); Hematocrit 43.4 % (30.3-42.9); Lymphocytes # (Auto) 0.7 K/mm3 (1.2-5.4); Lymphocytes % (Auto) 6.4 % (13.4-35.0); Mean Corpuscular HGB Conc 32 % (30-34); Mean Corpuscular Volume 89 fl (79-97); Monocytes # (Auto) 0.4 K/mm3 (0.0-0.8); Monocytes % (Auto) 3.4 % (0.0-7.3); Platelet Count 239 K/mm3 (140-440); Red Blood Count 4.86 M/mm3 (3.65-5.03); Red Cell Distribution Width 15.6 % (13.2-15.2)
[2019-02-18] MEDS ORDERED: ASPIRIN 325 MG TAB PO ONE (18:40)
[2019-02-18 18:42] LABS: INR 0.97 (0.87-1.13)
[2019-02-18 18:43] LABS: Partial Thromboplastin Time 24.5 Sec. (24.2-36.6)
[2019-02-18 19:03] LABS: Creatine Kinase MB 1.9 ng/mL (0.0-4.0)
[2019-02-18 19:05] LABS: Alanine Aminotransferase 12 units/L (7-56); Albumin 3.7 g/dL (3.9-5); BUN/Creatinine Ratio 24; Blood Urea Nitrogen 17 mg/dL (7-17); Calcium 9.8 mg/dL (8.4-10.2); Hemolysis Index 29
[2019-02-18 19:10] LABS: Bilirubin,Direct < 0.2 mg/dL (0-0.2)
[2019-02-18] MEDS ORDERED: ALBUTEROL 2.5 MG/3 ML NEBU IH PRN (20:03)
[2019-02-18] MEDS ORDERED: ACETAMINOPHEN 500 MG TAB PO PRN (20:03)
[2019-02-18] MEDS ORDERED: NON-FORMULARY EACH (Albuterol Sulfate [Proair Respiclick] 90 MCG) IH PRN (20:03)
[2019-02-18] MEDS ORDERED: BENZONATATE 100 MG CAP PO PRN (20:05)
[2019-02-18] MEDS ORDERED: NON-FORMULARY EACH (Escitalopram Oxalate [Lexapro] 20 MG) PO SCH (20:15)
[2019-02-18] MEDS ORDERED: NON-FORMULARY EACH (Omeprazole [Omeprazole] 20 MG) PO SCH (20:15)
[2019-02-18] MEDS: LISINOPRIL 20 MG TAB PO SCH (21:59)
[2019-02-18] MEDS ORDERED: [UNRECOGNIZED DRUG - OTHER] IH SCH (22:00)
[2019-02-18] MEDS ORDERED: FORMOTEROL FUMARATE IH SCH (22:00)
[2019-02-18] MEDS ORDERED: BUDESONIDE IH SCH (22:00)
[2019-02-18] MEDS: ESCITALOPRAM 10 MG TAB PO SCH (22:00)
[2019-02-18] MEDS: ARFORMOTEROL 15 MCG/2 ML NEBU IH SCH (22:25)
[2019-02-18] MEDS ORDERED: METOCLOPRAMIDE 10 MG/2 ML INJ IV PRN (22:33)
[2019-02-18] MEDS: methylPREDNISolone Sod Succinate 125 MG/2 ML INJ IV SCH (22:54)
[2019-02-18] MEDS: PANTOPRAZOLE 20 MG TAB PO SCH (22:54)
[2019-02-18] MEDS: INSULIN LISPRO 100 UNIT/ML SUB-Q SCH (22:54)
[2019-02-19 00:51] LABS: Amphetamine Screen,Urine PRESUMPTIVE NEGATIVE; Benzodiazepines Screen,Urine PRESUMPTIVE NEGATIVE; Cocaine Screen,Urine PRESUMPTIVE NEGATIVE; Methadone Screen,Urine PRESUMPTIVE NEGATIVE; Opiate Screen,Urine PRESUMPTIVE NEGATIVE
[2019-02-19 01:17] LABS: Cannabinoid Screen,Urine PRESUMPTIVE POSITIVE
--- NOTE | 2019-02-19 06:05 | Event Note ---
Date: 02/18/19 See H/p in reports COPD exacerbation
[2019-02-19] MEDS: methylPREDNISolone Sod Succinate 125 MG/2 ML INJ IV SCH ×3 (06:11→22:44)
--- NOTE | 2019-02-19 06:32 | History and Physical Report ---
CHIEF COMPLAINT: Cough and shortness of breath for 1 week. HISTORY OF PRESENT ILLNESS: A 53-year-old female with repeat ER visits and recent discharge on 01/06/2019, comes in for increasing shortness of breath and wheezing. Cough productive of yellow sputum. The patient was here 36 hours ago for cough and wheezing, was treated as outpatient and discharged. Last admission was reviewed, which was from 01/03/2019 or 01/06/2019. The patient was admitted for acute exacerbation of COPD and chronic respiratory failure with hypoxia. The patient is on 2 liters home O2, increases it to 3 liters when more short of breath. The patient also had cardiac arrest and intubation on 11/05/2018. On her current visit, the patient is short of breath and cough productive of yellow sputum. No fever or chills. No recent travel. PAST MEDICAL HISTORY: Significant for COPD, hypertension, insulin-dependent diabetes, gastroesophageal reflux disease. PAST SURGICAL HISTORY: Significant for spinal fusion, left hip surgery and hysterectomy. SOCIAL HISTORY: Smokes over a pack a day and marijuana occasionally. FAMILY HISTORY: Hypertension. CURRENT MEDICATIONS: On the chart. PHYSICAL EXAMINATION: GENERAL: Middle-aged female, looks older than her age. VITAL SIGNS: Blood pressure is 143/75, temperature 98.4, pulse is 97, respirations 22. HEENT: Unremarkable. Pupils equal and reactive. NECK: Accessory muscles of respiration are prominent. CHEST AND LUNGS: Bilateral inspiratory and expiratory rhonchi present. Diminished air entry. CARDIOVASCULAR SYSTEM: S1, S2 heard. No gallop, no murmur, no rub. Apical impulse in left fifth intercostal space and midclavicular line. ABDOMEN: Soft and benign. No hepatosplenomegaly. No guarding, no rigidity. Hernial orifices are normal. EXTREMITIES: Good pedal pulses. No pedal edema. CENTRAL NERVOUS SYSTEM: Alert and oriented x 4, nonfocal exam. SKIN: Normal. LABORATORY DATA: Significant for white count of 11,600, hemoglobin of 14, hematocrit of 43.4, platelet count of 239,000. Protime is 12.6, INR is 0.97, PTT is 24.5, pH is 7.36, pCO2 of 46.7, pO2 of 78, O2 sats of 95. Glucose of 266. Hemoglobin A1c 6.7. Otherwise, labs are normal. Marijuana is positive on the drug screen. Chest x-ray shows no acute changes. ASSESSMENT AND PLAN: 1. Acute respiratory failure with hypoxia. The patient to be treated with IV Solu-Medrol, IV Levaquin and DuoNebs. BiPAP if necessary. Intubation if necessary. 2. Chronic obstructive pulmonary disease exacerbation. The patient initiated on IV Solu-Medrol, DuoNeb, albuterol neb treatments and IV Levaquin. BiPAP if necessary. 3. Insulin-dependent diabetes. Continue insulin and coverage. Check hemoglobin A1c. Hemoglobin A1c is reasonable at 6.7. 4. Hypertension. Continue antihypertensives. 5. Gastroesophageal reflux disease. Continue PPIs. 6. Deep venous thrombosis prophylaxis, Lovenox 40 mg subcutaneous daily. 7. Nicotine dependence. The patient counseled about smoking, but she is not going to stop smoking. Nicoderm patch initiated. JOB# [id number] NAMRATA/CHRISSY SOLORIO
[2019-02-19] MEDS: ARFORMOTEROL 15 MCG/2 ML NEBU IH SCH ×2 (07:22→21:10)
[2019-02-19] MEDS ORDERED: IPRATROPIUM/ALBUTEROL SULFATE 3 ML AMPUL.NEB IH SCH (08:00)
[2019-02-19] MEDS ORDERED: INSULIN GLARGINE 100 UNITS/ML SUB-Q NR (08:10)
[2019-02-19] MEDS: INSULIN LISPRO 100 UNIT/ML SUB-Q SCH ×7 (08:44→22:13)
[2019-02-19] MEDS ORDERED: ALBUTEROL 2.5 MG/3 ML NEBU IH PRN (08:51)
[2019-02-19] MEDS: ESCITALOPRAM 10 MG TAB PO SCH (09:51)
[2019-02-19] MEDS: PANTOPRAZOLE 20 MG TAB PO SCH (09:51)
[2019-02-19] MEDS: LORazepam 1 MG TAB PO SCH ×2 (09:51→22:46)
[2019-02-19] MEDS: LISINOPRIL 20 MG TAB PO SCH (09:52)
[2019-02-19] MEDS: NICOTINE 21 MG/24 HR PATCH TD SCH (09:52)
[2019-02-19] MEDS: IPRATROPIUM/ALBUTEROL SULFATE 3 ML AMPUL.NEB IH SCH ×3 (11:57→21:11)
[2019-02-19] MEDS: oxyCODONE /ACETAMINOPHEN 5-325MG TAB PO PRN ×3 (12:18→23:52)
[2019-02-19] MEDS: guaiFENesin DM 200/20 MG ORAL LIQD 10 ML PO PRN ×3 (12:18→22:46)
--- NOTE | 2019-02-19 13:13 | Progress Note ---
Assessment and Plan Assessment and plan: Acute respiratory failure with hypoxia - Patient is on oxygen support, BiPAP as needed - We'll continue to monitor COPD exacerbation - Patient is on IV Solu-Medrol, nebulizer treatment, oxygen support, IV Levaquin - We'll continue to monitor Diabetes mellitus - Blood sugar this morning was 332 and hemoglobin A1c was 6.7 - Because the patient is on Solu-Medrol as started on 20 units of Lantus for now and daily at bedtime - Sliding-scale insulin, Accu-Chek, diabetic diet will monitor and adjust as nee ded Hypertension - Monitor blood pressure GERD -Continue the PIs DVT prophylaxis -On Lovenox Nicotine dependence; patient declined nicotine patch. I have counseled extensively about cessation of smoking. Disposition -Continue inpatient care History Interval history: Patient was seen and evaluated this morning, patient is still complaining of shortness of breath and generalized pain. Hospitalist Physical - Physical exam Narrative exam: Not in cardiopulmonary distress. The patient is morbidly obese. Vital signs as documented. Head exam is unremarkable. No scleral icterus . Neck is without jugular venous distension, thyromegaly, or carotid bruits. Lungs wheezing all over the chest Cardiac exam reveals regular rate and Rhythm. First and second heart sounds normal. No murmurs, rubs or gallops. Abdominal exam reveals normal bowel sounds, no masses, no organomegaly and no aortic enlargement. Extremities are nonedematous and both femoral and pedal pulses are normal. 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 No focal weakness. - Constitutional Vitals: Temp Pulse Resp BP Pulse Ox 97.9 F 100 H 24 171/75 97 02/19/19 11:52 02/19/19 11:57 02/19/19 11:57 02/19/19 11:52 02/19/19 11:52 Results - Labs CBC & Chem 7: 02/18/19 18:15 02/18/19 18:15 Labs: Laboratory Last Values WBC 11.6 K/mm3 (4.5-11.0) H 02/18/19 18:15 RBC 4.86 M/mm3 (3.65-5.03) 02/18/19 18:15 Hgb 14.0 gm/dl (10.1-14.3) 02/18/19 18:15 Hct 43.4 % (30.3-42.9) H 02/18/19 18:15 MCV 89 fl (79-97) 02/18/19 18:15 MCH 29 pg (28-32) 02/18/19 18:15 MCHC 32 % (30-34) 02/18/19 18:15 RDW 15.6 % (13.2-15.2) H 02/18/19 18:15 Plt Count 239 K/mm3 (140-440) 02/18/19 18:15 Lymph % (Auto) 6.4 % (13.4-35.0) L 02/18/19 18:15 [place] % (Auto) 3.4 % (0.0-7.3) 02/18/19 18:15 Eos % (Auto) 0.0 % (0.0-4.3) 02/18/19 18:15 Baso % (Auto) 0.2 % (0.0-1.8) 02/18/19 18:15 Lymph # 0.7 K/mm3 (1.2-5.4) L 02/18/19 18:15 [place] # 0.4 K/mm3 (0.0-0.8) 02/18/19 18:15 Eos # 0.0 K/mm3 (0.0-0.4) 02/18/19 18:15 Baso # 0.0 K/mm3 (0.0-0.1) 02/18/19 18:15 Seg Neutrophils % 90.0 % (40.0-70.0) H 02/18/19 18:15 Seg Neutrophils # 10.4 K/mm3 (1.8-7.7) H 02/18/19 18:15 PT 12.6 Sec. (12.2-14.9) 02/18/19 18:15 INR 0.97 (0.87-1.13) 02/18/19 18:15 APTT 24.5 Sec. (24.2-36.6) 02/18/19 18:15 POC ABG pH 7.367 (7.35-7.45) 02/18/19 18:23 POC ABG pCO2 46.7 (35-45) H 02/18/19 18:23 POC ABG pO2 78 (80-105) L 02/18/19 18:23 POC ABG HCO3 26.8 (22-26 mml/L) 02/18/19 18:23 POC ABG Total CO2 28 (23-27mmol/L) 02/18/19 18:23 POC ABG O2 Sat 95 02/18/19 18:23 POC ABG Base Excess 1 ((-2) - (+3)mmol/L) 02/18/19 18:23 28 % 02/18/19 18:23 Sodium 141 mmol/L (137-145) 02/18/19 18:15 Potassium 4.5 mmol/L (3.6-5.0) 02/18/19 18:15 Chloride 102.9 mmol/L (98-107) 02/18/19 18:15 Carbon Dioxide 24 mmol/L (22-30) 02/18/19 18:15 19 mmol/L 02/18/19 18:15 BUN 17 mg/dL (7-17) 02/18/19 18:15 0.7 mg/dL (0.7-1.2) 02/18/19 18:15 Estimated GFR > 60 ml/min 02/18/19 18:15 24 % 02/18/19 18:15 Glucose 266 mg/dL (65-100) H 02/18/19 18:15 POC Glucose 280 (70-105) H 02/19/19 11:22 6.7 % (4-6) H 02/19/19 04:21 Calcium 9.8 mg/dL (8.4-10.2) 02/18/19 18:15 0.40 mg/dL (0.1-1.2) 02/18/19 18:15 < 0.2 mg/dL (0-0.2) 02/18/19 18:15 0.2 mg/dL 02/18/19 18:15 AST 8 units/L (5-40) 02/18/19 18:15 ALT 12 units/L (7-56) 02/18/19 18:15 101 units/L (35-129) 02/18/19 18:15 43 units/L (30-135) 02/18/19 18:15 CK-MB (CK-2) 1.9 ng/mL (0.0-4.0) 02/18/19 18:15 CK-MB (CK-2) Rel Index 4.4 (0-4) H 02/18/19 18:15 < 0.010 ng/mL (0.00-0.029) 02/18/19 18:15 6.6 g/dL (6.3-8.2) 02/18/19 18:15 3.7 g/dL (3.9-5) L 02/18/19 18:15 1.3 % 02/18/19 18:15 Presumptive negative 02/19/19 00:15 Presumptive negative 02/19/19 00:15 Ur Barbiturates Screen Presumptive negative 02/19/19 00:15 Ur Phencyclidine Scrn Presumptive negative 02/19/19 00:15 Ur Amphetamines Screen Presumptive negative 02/19/19 00:15 U Benzodiazepines Scrn Presumptive negative 02/19/19 00:15 Presumptive negative 02/19/19 00:15 U Marijuana (THC) Screen Presumptive positive 02/19/19 00:15 Disclamer 02/19/19 00:15 Active Medications - Current Medications Current Medications: Generic Name Dose Route Start Last Admin Trade Name Freq PRN Reason Stop Dose Admin Acetaminophen 500 mg 02/18/19 20:03 Tylenol PO Q6HR PRN Pain , Severe (7-10) Albuterol 2.5 mg 02/19/19 08:51 Proventil IH Q4HRT PRN Shortness Of Breath Albuterol/Ipratropium 1 ampul 02/19/19 12:00 02/19/19 11:57 Duoneb *Not For Prn Use* IH 1 ampul Q4HRT VIC Administration Arformoterol Tartrate 15 mcg 02/19/19 20:00 Brovana Nebu IH Q12HRT VIC Budesonide 0.5 mg 02/19/19 20:00 Pulmicort IH Q12HRT VIC Enoxaparin Sodium 40 mg 02/19/19 22:00 Lovenox SUB-Q QDAY@2200 VIC Escitalopram Oxalate 20 mg 02/18/19 22:00 02/19/19 09:51 Lexapro PO 20 mg DAILY VIC Administration Gabapentin 300 mg 02/19/19 14:00 Neurontin PO Q8HR VIC Guaifenesin 10 ml 02/19/19 11:53 02/19/19 12:18 Guaifenesin Dm Syrup PO 10 ml Q4H PRN Administration Cough Levofloxacin/Dextrose 750 mg in 150 mls @ 100 mls/hr 02/18/19 21:00 02/18/19 21:58 Levaquin 750mg/150ml IV 100 mls/hr Q24H VIC Administration Protocol Insulin Glargine 20 units 02/19/19 22:00 Lantus SUB-Q QHS VIC Insulin Human Lispro 15 unit 02/19/19 07:30 02/19/19 12:50 Humalog SUB-Q 15 unit TIDAC VIC Administration Insulin Human Lispro 0 unit 02/18/19 22:00 02/19/19 12:50 Humalog SUB-Q 4 unit ACHS VIC Administration Protocol Lisinopril 20 mg 02/18/19 21:00 02/19/19 09:52 Zestril PO 20 mg DAILY VIC Administration Lorazepam 1 mg 02/19/19 10:00 02/19/19 09:51 Ativan PO 1 mg BID VIC Administration Methylprednisolone Sodium Succinate 60 mg 02/18/19 22:00 02/19/19 06:11 Solu-Medrol IV 60 mg Q8H VIC Administration Metoclopramide HCl 10 mg 02/18/19 22:33 Reglan IV Q6H PRN Nausea And Vomiting Nicotine 21 mg 02/19/19 10:00 02/19/19 09:52 Habitrol TD Not Given QDAY [facility] Oxycodone/Acetaminophen 1 tab 02/19/19 11:54 02/19/19 12:18 Percocet 5/325 PO 1 tab Q6H PRN Administration Pain, Moderate (4-6) Pantoprazole Sodium 20 mg 02/18/19 22:00 02/19/19 09:51 Protonix PO 20 mg QDAY VIC Administration
[2019-02-19] MEDS: GABAPENTIN 300 MG CAP PO SCH ×2 (15:01→22:46)
[2019-02-19] MEDS: BUDESONIDE 0.5 MG/2 ML NEBU IH SCH (21:11)
[2019-02-19] MEDS ORDERED: BUDESONIDE 0.5 MG/2 ML NEBU IH SCH (22:00)
[2019-02-19] MEDS: INSULIN GLARGINE 100 UNITS/ML SUB-Q SCH ×2 (22:47→22:49)
[2019-02-19] MEDS: ENOXAPARIN 40 MG/0.4 ML INJ SUB-Q SCH (22:47)
[2019-02-20] MEDS: IPRATROPIUM/ALBUTEROL SULFATE 3 ML AMPUL.NEB IH SCH ×6 (00:21→20:06)
[2019-02-20] MEDS: guaiFENesin DM 200/20 MG ORAL LIQD 10 ML PO PRN ×5 (03:18→22:42)
[2019-02-20 06:12] LABS: BUN/Creatinine Ratio 29; Blood Urea Nitrogen 20 mg/dL (7-17); Calcium 9.6 mg/dL (8.4-10.2); Hemolysis Index 3
[2019-02-20] MEDS: methylPREDNISolone Sod Succinate 125 MG/2 ML INJ IV SCH ×3 (06:27→22:41)
[2019-02-20] MEDS: GABAPENTIN 300 MG CAP PO SCH ×3 (06:27→22:42)
[2019-02-20] MEDS: BUDESONIDE 0.5 MG/2 ML NEBU IH SCH ×2 (07:12→19:35)
[2019-02-20] MEDS: ARFORMOTEROL 15 MCG/2 ML NEBU IH SCH ×2 (07:12→19:34)
[2019-02-20] MEDS: INSULIN LISPRO 100 UNIT/ML SUB-Q SCH ×7 (08:26→22:43)
[2019-02-20] MEDS: oxyCODONE /ACETAMINOPHEN 5-325MG TAB PO PRN ×3 (08:31→22:42)
[2019-02-20] MEDS ORDERED: INSULIN GLARGINE 100 UNITS/ML SUB-Q ONE (09:00)
[2019-02-20] MEDS: LISINOPRIL 20 MG TAB PO SCH (09:48)
[2019-02-20] MEDS: ESCITALOPRAM 10 MG TAB PO SCH (09:48)
[2019-02-20] MEDS: PANTOPRAZOLE 20 MG TAB PO SCH (09:49)
[2019-02-20] MEDS: LORazepam 1 MG TAB PO SCH ×2 (09:49→22:42)
[2019-02-20] MEDS: NICOTINE 21 MG/24 HR PATCH TD SCH ×2 (09:49→09:51)
--- NOTE | 2019-02-20 10:22 | Progress Note ---
Assessment and Plan Assessment and plan: Patient is a 53 yo woman from [facility] with a history of hypertension, IDDM, CHF, bipolar, schizophrenia, chronic pain syndrome, continued tobacco dependency despite chronic hypoxic respiratory failure on 2 liters of home O2 due to end stage COPD with hypoxemia resulting in cardiac arrest and intubation on 11/05/18 who presents with SOB Acute on chronic respiratory failure with hypoxia - Patient is on oxygen support, BiPAP as needed - We'll continue to monitor COPD exacerbation - Patient is on IV Solu-Medrol, nebulizer treatment, oxygen support, IV Levaquin - We'll continue to monitor Diabetes mellitus - Blood sugar this morning was very high and hemoglobin A1c was 6.7 - Because the patient is on Solu-Medrol I adjust insulin - Sliding-scale insulin, Accu-Chek, diabetic diet will monitor and adjust as needed Hypertension -Controlled, on lisinopril GERD -Continue the PPI DVT prophylaxis -On Lovenox Nicotine dependence; patient declined nicotine patch. I have counseled e xtensively about cessation of smoking. Disposition -Continue inpatient care History Interval history: Patient was seen and evaluated this morning, patient is still complaining of shortness of breath and generalized pain. Hospitalist Physical - Physical exam Narrative exam: Not in cardiopulmonary distress. The patient is morbidly obese. Vital signs as documented. Head exam is unremarkable. No scleral icterus . Neck is without jugular venous distension, thyromegaly, or carotid bruits. Lungs wheezing all over the chest Cardiac exam reveals regular rate and Rhythm. First and second heart sounds normal. No murmurs, rubs or gallops. Abdominal exam reveals normal bowel sounds, no masses, no organomegaly and no aortic enlargement. Extremities are nonedematous and both femoral and pedal pulses are normal. 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 No focal weakness. - Constitutional Vitals: Temp Pulse Resp BP Pulse Ox 97.7 F 96 H 20 130/70 96 02/20/19 04:37 02/20/19 07:12 02/20/19 07:12 02/20/19 09:48 02/20/19 07:12 Results - Labs CBC & Chem 7: 02/18/19 18:15 02/20/19 05:34 Labs: Laboratory Last Values WBC 11.6 K/mm3 (4.5-11.0) H 02/18/19 18:15 RBC 4.86 M/mm3 (3.65-5.03) 02/18/19 18:15 Hgb 14.0 gm/dl (10.1-14.3) 02/18/19 18:15 Hct 43.4 % (30.3-42.9) H 02/18/19 18:15 MCV 89 fl (79-97) 02/18/19 18:15 MCH 29 pg (28-32) 02/18/19 18:15 MCHC 32 % (30-34) 02/18/19 18:15 RDW 15.6 % (13.2-15.2) H 02/18/19 18:15 Plt Count 239 K/mm3 (140-440) 02/18/19 18:15 Lymph % (Auto) 6.4 % (13.4-35.0) L 02/18/19 18:15 [place] % (Auto) 3.4 % (0.0-7.3) 02/18/19 18:15 Eos % (Auto) 0.0 % (0.0-4.3) 02/18/19 18:15 Baso % (Auto) 0.2 % (0.0-1.8) 02/18/19 18:15 Lymph # 0.7 K/mm3 (1.2-5.4) L 02/18/19 18:15 [place] # 0.4 K/mm3 (0.0-0.8) 02/18/19 18:15 Eos # 0.0 K/mm3 (0.0-0.4) 02/18/19 18:15 Baso # 0.0 K/mm3 (0.0-0.1) 02/18/19 18:15 Seg Neutrophils % 90.0 % (40.0-70.0) H 02/18/19 18:15 Seg Neutrophils # 10.4 K/mm3 (1.8-7.7) H 02/18/19 18:15 PT 12.6 Sec. (12.2-14.9) 02/18/19 18:15 INR 0.97 (0.87-1.13) 02/18/19 18:15 APTT 24.5 Sec. (24.2-36.6) 02/18/19 18:15 POC ABG pH 7.367 (7.35-7.45) 02/18/19 18:23 POC ABG pCO2 46.7 (35-45) H 02/18/19 18:23 POC ABG pO2 78 (80-105) L 02/18/19 18:23 POC ABG HCO3 26.8 (22-26 mml/L) 02/18/19 18:23 POC ABG Total CO2 28 (23-27mmol/L) 02/18/19 18:23 POC ABG O2 Sat 95 02/18/19 18:23 POC ABG Base Excess 1 ((-2) - (+3)mmol/L) 02/18/19 18:23 28 % 02/18/19 18:23 Sodium 137 mmol/L (137-145) 02/20/19 05:34 Potassium 4.9 mmol/L (3.6-5.0) 02/20/19 05:34 Chloride 101.1 mmol/L (98-107) 02/20/19 05:34 Carbon Dioxide 27 mmol/L (22-30) 02/20/19 05:34 14 mmol/L 02/20/19 05:34 BUN 20 mg/dL (7-17) H 02/20/19 05:34 0.7 mg/dL (0.7-1.2) 02/20/19 05:34 Estimated GFR > 60 ml/min 02/20/19 05:34 29 % 02/20/19 05:34 Glucose 376 mg/dL (65-100) H 02/20/19 05:34 POC Glucose 309 (70-105) H 02/20/19 07:48 6.7 % (4-6) H 02/19/19 04:21 Calcium 9.6 mg/dL (8.4-10.2) 02/20/19 05:34 0.40 mg/dL (0.1-1.2) 02/18/19 18:15 < 0.2 mg/dL (0-0.2) 02/18/19 18:15 0.2 mg/dL 02/18/19 18:15 AST 8 units/L (5-40) 02/18/19 18:15 ALT 12 units/L (7-56) 02/18/19 18:15 101 units/L (35-129) 02/18/19 18:15 43 units/L (30-135) 02/18/19 18:15 CK-MB (CK-2) 1.9 ng/mL (0.0-4.0) 02/18/19 18:15 CK-MB (CK-2) Rel Index 4.4 (0-4) H 02/18/19 18:15 < 0.010 ng/mL (0.00-0.029) 02/18/19 18:15 6.6 g/dL (6.3-8.2) 02/18/19 18:15 3.7 g/dL (3.9-5) L 02/18/19 18:15 1.3 % 02/18/19 18:15 Presumptive negative 02/19/19 00:15 Presumptive negative 02/19/19 00:15 Ur Barbiturates Screen Presumptive negative 02/19/19 00:15 Ur Phencyclidine Scrn Presumptive negative 02/19/19 00:15 Ur Amphetamines Screen Presumptive negative 02/19/19 00:15 U Benzodiazepines Scrn Presumptive negative 02/19/19 00:15 Presumptive negative 02/19/19 00:15 U Marijuana (THC) Screen Presumptive positive 02/19/19 00:15 Disclamer 02/19/19 00:15 Active Medications - Current Medications Current Medications: Generic Name Dose Route Start Last Admin Trade Name Freq PRN Reason Stop Dose Admin Acetaminophen 500 mg 02/18/19 20:03 Tylenol PO Q6HR PRN Pain , Severe (7-10) Albuterol 2.5 mg 02/19/19 08:51 Proventil IH Q4HRT PRN Shortness Of Breath Albuterol/Ipratropium 1 ampul 02/19/19 12:00 02/20/19 07:12 Duoneb *Not For Prn Use* IH 1 ampul Q4HRT VIC Administration Arformoterol Tartrate 15 mcg 02/19/19 20:00 02/20/19 07:12 Brovana Nebu IH 15 mcg Q12HRT VIC Administration Budesonide 0.5 mg 02/19/19 20:00 02/20/19 07:12 Pulmicort IH 0.5 mg Q12HRT VIC Administration Enoxaparin Sodium 40 mg 02/19/19 22:00 02/19/19 22:47 Lovenox SUB-Q 40 mg QDAY@2200 VIC Administration Escitalopram Oxalate 20 mg 02/18/19 22:00 02/20/19 09:48 Lexapro PO 20 mg DAILY VIC Administration Gabapentin 300 mg 02/19/19 14:00 02/20/19 06:27 Neurontin PO 300 mg Q8HR VIC Administration Guaifenesin 10 ml 02/19/19 11:53 02/20/19 08:26 Guaifenesin Dm Syrup PO 10 ml Q4H PRN Administration Cough Levofloxacin/Dextrose 750 mg in 150 mls @ 100 mls/hr 02/18/19 21:00 02/19/19 22:07 Levaquin 750mg/150ml IV 100 mls/hr Q24H VIC Administration Protocol Insulin Glargine 20 units 02/19/19 22:00 02/19/19 22:49 Lantus SUB-Q 20 units QHS VIC Administration Insulin Human Lispro 15 unit 02/19/19 07:30 02/20/19 08:26 Humalog SUB-Q 15 unit TIDAC VIC Administration Insulin Human Lispro 0 unit 02/18/19 22:00 02/20/19 08:35 Humalog SUB-Q 6 unit ACHS VIC Administration Protocol Lisinopril 20 mg 02/18/19 21:00 02/20/19 09:48 Zestril PO 20 mg DAILY VIC Administration Lorazepam 1 mg 02/19/19 10:00 02/20/19 09:49 Ativan PO 1 mg BID VIC Administration Methylprednisolone Sodium Succinate 60 mg 02/18/19 22:00 02/20/19 06:27 Solu-Medrol IV 60 mg Q8H VIC Administration Metoclopramide HCl 10 mg 02/18/19 22:33 Reglan IV Q6H PRN Nausea And Vomiting Nicotine 21 mg 02/19/19 10:00 02/20/19 09:51 Habitrol TD Not Given QDAY [facility] Oxycodone/Acetaminophen 1 tab 02/19/19 11:54 02/20/19 08:31 Percocet 5/325 PO 1 tab Q6H PRN Administration Pain, Moderate (4-6) Pantoprazole Sodium 20 mg 02/18/19 22:00 02/20/19 09:49 Protonix PO 20 mg QDAY VIC Administration
[2019-02-20] MEDS: INSULIN GLARGINE 100 UNITS/ML SUB-Q SCH (22:41)
[2019-02-20] MEDS: ENOXAPARIN 40 MG/0.4 ML INJ SUB-Q SCH (22:42)
[2019-02-21] MEDS: IPRATROPIUM/ALBUTEROL SULFATE 3 ML AMPUL.NEB IH SCH ×6 (01:28→20:54)
[2019-02-21] MEDS: GABAPENTIN 300 MG CAP PO SCH ×3 (06:10→21:01)
[2019-02-21] MEDS: methylPREDNISolone Sod Succinate 125 MG/2 ML INJ IV SCH ×3 (06:10→21:00)
[2019-02-21] MEDS: guaiFENesin DM 200/20 MG ORAL LIQD 10 ML PO PRN ×4 (06:15→20:58)
[2019-02-21] MEDS: oxyCODONE /ACETAMINOPHEN 5-325MG TAB PO PRN ×3 (06:15→20:32)
[2019-02-21] MEDS: INSULIN LISPRO 100 UNIT/ML SUB-Q SCH ×7 (07:30→21:01)
[2019-02-21] MEDS: BUDESONIDE 0.5 MG/2 ML NEBU IH SCH ×2 (07:37→20:54)
[2019-02-21] MEDS: ARFORMOTEROL 15 MCG/2 ML NEBU IH SCH ×2 (07:38→20:54)
[2019-02-21] MEDS: LORazepam 1 MG TAB PO SCH ×2 (10:13→21:01)
[2019-02-21] MEDS: ESCITALOPRAM 10 MG TAB PO SCH (10:13)
[2019-02-21] MEDS: PANTOPRAZOLE 20 MG TAB PO SCH (10:14)
[2019-02-21] MEDS: LISINOPRIL 20 MG TAB PO SCH (10:14)
[2019-02-21] MEDS: NICOTINE 21 MG/24 HR PATCH TD SCH (10:15)
--- NOTE | 2019-02-21 10:52 | Discharge Summary ---
Providers - Providers Date of Admission: 02/18/19 18:41 Attending physician: ORALIA PALACIOS MD Primary care physician: [employer] Hospitalization Condition: Stable Hospital course: Patient is a 53 yo woman from [facility] with a history of hypertension, IDDM, CHF, bipolar, schizophrenia, chronic pain syndrome, continued tobacco dependency despite chronic hypoxic respiratory failure on 2 liters of home O2 due to end stage COPD with hypoxemia resulting in cardiac arrest and intubation on 11/05/18 who presents with SOB -The patient admits that she had continued smoking even though she has been counseled multiple times on smoking cessation. She presented with shortness of breath and wheezing. She was treated with steroids nebulizers oxygen supplements. She received NIV at bedtime. She had persistent hyperglycemia which is due to steroid, she was treated with insulins. Preventative health counseling performed for 17 minutes Tobacco abuse/dependence Smoking cessation counseling performed for 10 minutes, nicotine patches when necessary Diagnosis Acute on chronic respiratory failure with hypoxia COPD exacerbation Persistent hyperglycemia due to steroid administration, prediabetes, A1c 6.7 Hypertension GERD Tobacco abuse/dependence Disposition: DC- TO HOME OR SELFCARE Time spent for discharge: 33 mins Core Measure Documentation - Palliative Care Palliative Care/ Comfort Measures: Not Applicable - Core Measures Any of the following diagnoses?: none Exam - Constitutional Vitals: Temp Pulse Resp BP Pulse Ox 97.6 F 87 19 166/91 95 02/21/19 05:30 02/21/19 10:14 02/21/19 07:38 02/21/19 10:14 02/21/19 07:39 General appearance: Present: no acute distress, well-nourished - EENT Eyes: Present: PERRL ENT: hearing intact, clear oral mucosa - Neck Neck: Present: supple, normal ROM - Respiratory Respiratory effort: normal Respiratory: bilateral: diminished - Cardiovascular Heart Sounds: Present: S1 & S2. Absent: rub, click - Extremities Extremities: pulses symmetrical, No edema Peripheral Pulses: within normal limits - Abdominal General gastrointestinal: Present: soft, non-tender, non-distended, normal bowel sounds Female genitourinary: Present: normal - Integumentary Integumentary: Present: clear, warm, dry - Musculoskeletal Musculoskeletal: gait normal, strength equal bilaterally - Psychiatric Psychiatric: appropriate mood/affect, intact judgment & insight - Neurologic Neurologic: CNII-XII intact, moves all extremities Plan Follow up with: PRIMARY CARE, [Primary Care Provider] - 7 Days Prescriptions: Albuterol Sulfate [Albuterol 0.63% NEBS] 0.63 mg IH Q4HR PRN #90 neb PRN Reason: Wheezing Ipratropium (Nf) [Atrovent HFA 17MCG/PUFF] 2 puff IH Q6HR PRN #1 inha PRN Reason: Wheezing Ipratropium [Atrovent NEB] 0.5 mg IH Q4HR #120 neb Nicotine [Habitrol] 14 mg TD DAILY #30 patch Prednisone [predniSONE 10 mg (6-Day Pack, 21 Tabs)] 10 mg PO .TAPER #1 tab.ds.pk Albuterol Sulfate [Proair Respiclick] 2 puff IH Q4HR PRN #1 aer.pow.ba PRN Reason: Wheezing Tiotropium [place] [Spiriva Respimat] 1 each IH DAILY #1 mist.inhal Budesonide/Formoterol Fumarate [Symbicort 160-4.5 Mcg Inhaler] 1 puff IH BID #1 hfa.aer.ad Benzonatate [Tessalon Perles] 100 mg PO Q8HR PRN #14 capsule PRN Reason: Cough
[2019-02-21] MEDS ORDERED: hydrALAZINE 20 MG/1 ML INJ IV PRN (13:55)
[2019-02-21] MEDS: INSULIN GLARGINE 100 UNITS/ML SUB-Q SCH (21:00)
[2019-02-21] MEDS: ENOXAPARIN 40 MG/0.4 ML INJ SUB-Q SCH (21:00)
[2019-02-22] MEDS: oxyCODONE /ACETAMINOPHEN 5-325MG TAB PO PRN ×2 (02:18→09:41)
[2019-02-22] MEDS: guaiFENesin DM 200/20 MG ORAL LIQD 10 ML PO PRN ×3 (02:18→14:20)
[2019-02-22] MEDS: IPRATROPIUM/ALBUTEROL SULFATE 3 ML AMPUL.NEB IH SCH ×4 (03:07→19:37)
[2019-02-22] MEDS: methylPREDNISolone Sod Succinate 125 MG/2 ML INJ IV SCH ×3 (05:21→23:10)
[2019-02-22] MEDS: GABAPENTIN 300 MG CAP PO SCH ×3 (05:21→23:00)
[2019-02-22] MEDS: ARFORMOTEROL 15 MCG/2 ML NEBU IH SCH ×2 (07:29→19:37)
[2019-02-22] MEDS: BUDESONIDE 0.5 MG/2 ML NEBU IH SCH ×2 (07:29→19:37)
[2019-02-22] MEDS: INSULIN LISPRO 100 UNIT/ML SUB-Q SCH ×7 (07:30→23:03)
[2019-02-22] MEDS: LORazepam 1 MG TAB PO SCH ×2 (09:40→23:01)
[2019-02-22] MEDS: PANTOPRAZOLE 20 MG TAB PO SCH (09:40)
[2019-02-22] MEDS: LISINOPRIL 20 MG TAB PO SCH (09:40)
[2019-02-22] MEDS: ESCITALOPRAM 10 MG TAB PO SCH (09:41)
[2019-02-22] MEDS: NICOTINE 21 MG/24 HR PATCH TD SCH (09:41)
--- NOTE | 2019-02-22 10:57 | Progress Note ---
Assessment and Plan Assessment and plan: Patient is a 53 yo woman from [facility] with a history of hypertension, IDDM, CHF, bipolar, schizophrenia, chronic pain syndrome, continued tobacco dependency despite chronic hypoxic respiratory failure on 2 liters of home O2 due to end stage COPD with hypoxemia resulting in cardiac arrest and intubation on 11/05/18 who presents with SOB Acute on chronic respiratory failure with hypoxia - Patient is on oxygen support, BiPAP as needed - We'll continue to monitor COPD exacerbation - Patient is on IV Solu-Medrol, nebulizer treatment, oxygen support, IV Levaquin - We'll continue to monitor Diabetes mellitus - Blood sugar this morning was very high and hemoglobin A1c was 6.7 - Because the patient is on Solu-Medrol I adjust insulin - Sliding-scale insulin, Accu-Chek, diabetic diet will monitor and adjust as needed Hypertension -Controlled, on lisinopril GERD -Continue the PPI DVT prophylaxis -On Lovenox Nicotine dependence; patient declined nicotine patch. I have counseled extensively about cessation of smoking. Disposition -Continue inpatient care History Interval history: Patient was seen and evaluated this morning, patient is still complaining of shortness of breath and generalized pain. Hospitalist Physical - Physical exam Narrative exam: Not in cardiopulmonary distress. The patient is morbidly obese. Vital signs as documented. Head exam is unremarkable. No scleral icterus . Neck is without jugular venous distension, thyromegaly, or carotid bruits. Lungs wheezing all over the chest Cardiac exam reveals regular rate and Rhythm. First and second heart sounds normal. No murmurs, rubs or gallops. Abdominal exam reveals normal bowel sounds, no masses, no organomegaly and no aortic enlargement. Extremities are nonedematous and both femoral and pedal pulses are normal. 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 No focal weakness. Hospitalist Physical - Constitutional Vitals: Temp Pulse Resp BP Pulse Ox 97.9 F 82 18 132/64 97 02/22/19 04:35 02/22/19 09:40 02/22/19 07:30 02/22/19 09:40 02/22/19 07:53 Results - Labs CBC & Chem 7: 02/18/19 18:15 02/20/19 05:34 Labs: Laboratory Last Values WBC 11.6 K/mm3 (4.5-11.0) H 02/18/19 18:15 RBC 4.86 M/mm3 (3.65-5.03) 02/18/19 18:15 Hgb 14.0 gm/dl (10.1-14.3) 02/18/19 18:15 Hct 43.4 % (30.3-42.9) H 02/18/19 18:15 MCV 89 fl (79-97) 02/18/19 18:15 MCH 29 pg (28-32) 02/18/19 18:15 MCHC 32 % (30-34) 02/18/19 18:15 RDW 15.6 % (13.2-15.2) H 02/18/19 18:15 Plt Count 239 K/mm3 (140-440) 02/18/19 18:15 Lymph % (Auto) 6.4 % (13.4-35.0) L 02/18/19 18:15 [place] % (Auto) 3.4 % (0.0-7.3) 02/18/19 18:15 Eos % (Auto) 0.0 % (0.0-4.3) 02/18/19 18:15 Baso % (Auto) 0.2 % (0.0-1.8) 02/18/19 18:15 Lymph # 0.7 K/mm3 (1.2-5.4) L 02/18/19 18:15 [place] # 0.4 K/mm3 (0.0-0.8) 02/18/19 18:15 Eos # 0.0 K/mm3 (0.0-0.4) 02/18/19 18:15 Baso # 0.0 K/mm3 (0.0-0.1) 02/18/19 18:15 Seg Neutrophils % 90.0 % (40.0-70.0) H 02/18/19 18:15 Seg Neutrophils # 10.4 K/mm3 (1.8-7.7) H 02/18/19 18:15 PT 12.6 Sec. (12.2-14.9) 02/18/19 18:15 INR 0.97 (0.87-1.13) 02/18/19 18:15 APTT 24.5 Sec. (24.2-36.6) 02/18/19 18:15 POC ABG pH 7.367 (7.35-7.45) 02/18/19 18:23 POC ABG pCO2 46.7 (35-45) H 02/18/19 18:23 POC ABG pO2 78 (80-105) L 02/18/19 18:23 POC ABG HCO3 26.8 (22-26 mml/L) 02/18/19 18:23 POC ABG Total CO2 28 (23-27mmol/L) 02/18/19 18:23 POC ABG O2 Sat 95 02/18/19 18:23 POC ABG Base Excess 1 ((-2) - (+3)mmol/L) 02/18/19 18:23 FiO2 28 % 02/18/19 18:23 Sodium 137 mmol/L (137-145) 02/20/19 05:34 Potassium 4.9 mmol/L (3.6-5.0) 02/20/19 05:34 Chloride 101.1 mmol/L (98-107) 02/20/19 05:34 Carbon Dioxide 27 mmol/L (22-30) 02/20/19 05:34 Anion Gap 14 mmol/L 02/20/19 05:34 BUN 20 mg/dL (7-17) H 02/20/19 05:34 Creatinine 0.7 mg/dL (0.7-1.2) 02/20/19 05:34 Estimated GFR > 60 ml/min 02/20/19 05:34 BUN/Creatinine Ratio 29 % 02/20/19 05:34 Glucose 376 mg/dL (65-100) H 02/20/19 05:34 POC Glucose 351 (70-105) H 02/22/19 07:39 Hemoglobin A1c 6.7 % (4-6) H 02/19/19 04:21 Calcium 9.6 mg/dL (8.4-10.2) 02/20/19 05:34 Total Bilirubin 0.40 mg/dL (0.1-1.2) 02/18/19 18:15 Direct Bilirubin < 0.2 mg/dL (0-0.2) 02/18/19 18:15 Indirect Bilirubin 0.2 mg/dL 02/18/19 18:15 AST 8 units/L (5-40) 02/18/19 18:15 ALT 12 units/L (7-56) 02/18/19 18:15 Alkaline Phosphatase 101 units/L (35-129) 02/18/19 18:15 Total Creatine Kinase 43 units/L (30-135) 02/18/19 18:15 CK-MB (CK-2) 1.9 ng/mL (0.0-4.0) 02/18/19 18:15 CK-MB (CK-2) Rel Index 4.4 (0-4) H 02/18/19 18:15 Troponin T < 0.010 ng/mL (0.00-0.029) 02/18/19 18:15 Total Protein 6.6 g/dL (6.3-8.2) 02/18/19 18:15 Albumin 3.7 g/dL (3.9-5) L 02/18/19 18:15 Albumin/Globulin Ratio 1.3 % 02/18/19 18:15 Urine Opiates Screen Presumptive negative 02/19/19 00:15 Urine Methadone Screen Presumptive negative 02/19/19 00:15 Ur Barbiturates Screen Presumptive negative 02/19/19 00:15 Ur Phencyclidine Scrn Presumptive negative 02/19/19 00:15 Ur Amphetamines Screen Presumptive negative 02/19/19 00:15 U Benzodiazepines Scrn Presumptive negative 02/19/19 00:15 Urine Cocaine Screen Presumptive negative 02/19/19 00:15 U Marijuana (THC) Screen Presumptive positive 02/19/19 00:15 Drugs of Abuse Note Disclamer 02/19/19 00:15 Active Medications - Current Medications Current Medications: Generic Name Dose Route Start Last Admin Trade Name Freq PRN Reason Stop Dose Admin Acetaminophen 500 mg 02/18/19 20:03 Tylenol PO Q6HR PRN Pain , Severe (7-10) Albuterol 2.5 mg 02/19/19 08:51 Proventil IH Q4HRT PRN Shortness Of Breath Albuterol/Ipratropium 1 ampul 02/21/19 20:00 02/22/19 07:29 Duoneb *Not For Prn Use* IH 1 ampul Q6HRT VIC Administration Arformoterol Tartrate 15 mcg 02/19/19 20:00 02/22/19 07:29 Brovana Nebu IH 15 mcg Q12HRT VIC Administration Budesonide 0.5 mg 02/19/19 20:00 02/22/19 07:29 Pulmicort IH 0.5 mg Q12HRT VIC Administration Enoxaparin Sodium 40 mg 02/19/19 22:00 02/21/19 21:00 Lovenox SUB-Q 40 mg QDAY@2200 VIC Administration Escitalopram Oxalate 20 mg 02/18/19 22:00 02/22/19 09:41 Lexapro PO 20 mg DAILY VIC Administration Gabapentin 300 mg 02/19/19 14:00 02/22/19 05:21 Neurontin PO 300 mg Q8HR VIC Administration Guaifenesin 10 ml 02/19/19 11:53 02/22/19 09:49 Guaifenesin Dm Syrup PO 10 ml Q4H PRN Administration Cough Hydralazine HCl 10 mg 02/21/19 13:55 02/21/19 17:35 Apresoline IV 10 mg Q4HR PRN Administration BP >160/100 Levofloxacin/Dextrose 750 mg in 150 mls @ 100 mls/hr 02/18/19 21:00 02/21/19 20:38 Levaquin 750mg/150ml IV 100 mls/hr Q24H VIC Administration Protocol Insulin Glargine 20 units 02/19/19 22:00 02/21/19 21:00 Lantus SUB-Q 20 units QHS VIC Administration Insulin Human Lispro 15 unit 02/19/19 07:30 02/22/19 08:43 Humalog SUB-Q 15 unit TIDAC VIC Administration Insulin Human Lispro 0 unit 02/18/19 22:00 02/22/19 07:30 Humalog SUB-Q 8 unit ACHS VIC Administration Protocol Lisinopril 40 mg 02/21/19 13:55 02/22/19 09:40 Zestril PO 40 mg DAILY VIC Administration Lorazepam 1 mg 02/19/19 10:00 02/22/19 09:40 Ativan PO 1 mg BID VIC Administration Methylprednisolone Sodium Succinate 60 mg 02/18/19 22:00 02/22/19 05:21 Solu-Medrol IV 60 mg Q8H VIC Administration Metoclopramide HCl 10 mg 02/18/19 22:33 Reglan IV Q6H PRN Nausea And Vomiting Nicotine 21 mg 02/19/19 10:00 02/22/19 09:41 Habitrol TD Not Given QDAY VIC Oxycodone/Acetaminophen 1 tab 02/19/19 11:54 02/22/19 09:41 Percocet 5/325 PO 1 tab Q6H PRN Administration Pain, Moderate (4-6) Pantoprazole Sodium 20 mg 02/18/19 22:00 02/22/19 09:40 Protonix PO 20 mg QDAY VIC Administration
[2019-02-22] MEDS: HYDROcodone/ACETAMINOPHEN 10-325MG TAB PO PRN ×2 (13:52→23:01)
[2019-02-22] MEDS: ENOXAPARIN 40 MG/0.4 ML INJ SUB-Q SCH (23:00)
[2019-02-22] MEDS: MIRTAZAPINE 15 MG TAB PO SCH (23:00)
[2019-02-22] MEDS: INSULIN GLARGINE 100 UNITS/ML SUB-Q SCH (23:09)
--- NOTE | 2019-02-22 23:53 | Progress Note ---
Assessment and Plan Assessment and plan: Patient is a 53 yo woman from [facility] with a history of hypertension, IDDM, CHF, bipolar, schizophrenia, chronic pain syndrome, continued tobacco dependency despite chronic hypoxic respiratory failure on 2 liters of home O2 due to end stage COPD with hypoxemia resulting in cardiac arrest and intubation on 11/05/18 who presents with SOB Acute on chronic respiratory failure with hypoxia - Patient is on oxygen support, BiPAP as needed - We'll continue to monitor COPD exacerbation - Patient is on IV Solu-Medrol, nebulizer treatment, oxygen support, IV Levaquin - We'll continue to monitor Diabetes mellitus - Blood sugar this morning was very high and hemoglobin A1c was 6.7 - Because the patient is on Solu-Medrol I adjust insulin - Sliding-scale insulin, Accu-Chek, diabetic diet will monitor and adjust as needed Hypertension -Controlled, on lisinopril GERD -Continue the PPI DVT prophylaxis -On Lovenox Nicotine dependence; patient declined nicotine patch. I have counseled extensively about cessation of smoking. Disposition -Continue inpatient care History Interval history: Patient was seen and evaluated this morning, patient is still complaining of shortness of breath and generalized pain. Hospitalist Physical - Physical exam Narrative exam: Not in cardiopulmonary distress. The patient is morbidly obese. Vital signs as documented. Head exam is unremarkable. No scleral icterus . Neck is without jugular venous distension, thyromegaly, or carotid bruits. Lungs wheezing all over the chest Cardiac exam reveals regular rate and Rhythm. First and second heart sounds normal. No murmurs, rubs or gallops. Abdominal exam reveals normal bowel sounds, no masses, no organomegaly and no aortic enlargement. Extremities are nonedematous and both femoral and pedal pulses are normal. SENIOR MANAGER MMCOE: Alert and oriented 3. No focal weakness. Hospitalist Physical - Constitutional Vitals: Temp Pulse Resp BP Pulse Ox 97.9 F 78 18 157/85 94 02/22/19 04:35 02/22/19 19:38 02/22/19 19:38 02/22/19 18:40 02/22/19 19:38 Results - Labs CBC & Chem 7: 02/18/19 18:15 02/20/19 05:34 Labs: Laboratory Last Values WBC 11.6 K/mm3 (4.5-11.0) H 02/18/19 18:15 RBC 4.86 M/mm3 (3.65-5.03) 02/18/19 18:15 Hgb 14.0 gm/dl (10.1-14.3) 02/18/19 18:15 Hct 43.4 % (30.3-42.9) H 02/18/19 18:15 MCV 89 fl (79-97) 02/18/19 18:15 MCH 29 pg (28-32) 02/18/19 18:15 MCHC 32 % (30-34) 02/18/19 18:15 RDW 15.6 % (13.2-15.2) H 02/18/19 18:15 Plt Count 239 K/mm3 (140-440) 02/18/19 18:15 Lymph % (Auto) 6.4 % (13.4-35.0) L 02/18/19 18:15 [place] % (Auto) 3.4 % (0.0-7.3) 02/18/19 18:15 Eos % (Auto) 0.0 % (0.0-4.3) 02/18/19 18:15 Baso % (Auto) 0.2 % (0.0-1.8) 02/18/19 18:15 Lymph # 0.7 K/mm3 (1.2-5.4) L 02/18/19 18:15 [place] # 0.4 K/mm3 (0.0-0.8) 02/18/19 18:15 Eos # 0.0 K/mm3 (0.0-0.4) 02/18/19 18:15 Baso # 0.0 K/mm3 (0.0-0.1) 02/18/19 18:15 Seg Neutrophils % 90.0 % (40.0-70.0) H 02/18/19 18:15 Seg Neutrophils # 10.4 K/mm3 (1.8-7.7) H 02/18/19 18:15 PT 12.6 Sec. (12.2-14.9) 02/18/19 18:15 INR 0.97 (0.87-1.13) 02/18/19 18:15 APTT 24.5 Sec. (24.2-36.6) 02/18/19 18:15 POC ABG pH 7.367 (7.35-7.45) 02/18/19 18:23 POC ABG pCO2 46.7 (35-45) H 02/18/19 18:23 POC ABG pO2 78 (80-105) L 02/18/19 18:23 POC ABG HCO3 26.8 (22-26 mml/L) 02/18/19 18:23 POC ABG Total CO2 28 (23-27mmol/L) 02/18/19 18:23 POC ABG O2 Sat 95 02/18/19 18:23 POC ABG Base Excess 1 ((-2) - (+3)mmol/L) 02/18/19 18:23 FiO2 28 % 02/18/19 18:23 Sodium 137 mmol/L (137-145) 02/20/19 05:34 Potassium 4.9 mmol/L (3.6-5.0) 02/20/19 05:34 Chloride 101.1 mmol/L (98-107) 02/20/19 05:34 Carbon Dioxide 27 mmol/L (22-30) 02/20/19 05:34 Anion Gap 14 mmol/L 02/20/19 05:34 BUN 20 mg/dL (7-17) H 02/20/19 05:34 Creatinine 0.7 mg/dL (0.7-1.2) 02/20/19 05:34 Estimated GFR > 60 ml/min 02/20/19 05:34 BUN/Creatinine Ratio 29 % 02/20/19 05:34 Glucose 376 mg/dL (65-100) H 02/20/19 05:34 POC Glucose 288 (70-105) H 02/22/19 22:02 Hemoglobin A1c 6.7 % (4-6) H 02/19/19 04:21 Calcium 9.6 mg/dL (8.4-10.2) 02/20/19 05:34 Total Bilirubin 0.40 mg/dL (0.1-1.2) 02/18/19 18:15 Direct Bilirubin < 0.2 mg/dL (0-0.2) 02/18/19 18:15 Indirect Bilirubin 0.2 mg/dL 02/18/19 18:15 AST 8 units/L (5-40) 02/18/19 18:15 ALT 12 units/L (7-56) 02/18/19 18:15 Alkaline Phosphatase 101 units/L (35-129) 02/18/19 18:15 Total Creatine Kinase 43 units/L (30-135) 02/18/19 18:15 CK-MB (CK-2) 1.9 ng/mL (0.0-4.0) 02/18/19 18:15 CK-MB (CK-2) Rel Index 4.4 (0-4) H 02/18/19 18:15 Troponin T < 0.010 ng/mL (0.00-0.029) 02/18/19 18:15 Total Protein 6.6 g/dL (6.3-8.2) 02/18/19 18:15 Albumin 3.7 g/dL (3.9-5) L 02/18/19 18:15 Albumin/Globulin Ratio 1.3 % 02/18/19 18:15 Urine Opiates Screen Presumptive negative 02/19/19 00:15 Urine Methadone Screen Presumptive negative 02/19/19 00:15 Ur Barbiturates Screen Presumptive negative 02/19/19 00:15 Ur Phencyclidine Scrn Presumptive negative 02/19/19 00:15 Ur Amphetamines Screen Presumptive negative 02/19/19 00:15 U Benzodiazepines Scrn Presumptive negative 02/19/19 00:15 Urine Cocaine Screen Presumptive negative 02/19/19 00:15 U Marijuana (THC) Screen Presumptive positive 02/19/19 00:15 Drugs of Abuse Note Disclamer 02/19/19 00:15 Active Medications - Current Medications Current Medications: Generic Name Dose Route Start Last Admin Trade Name Freq PRN Reason Stop Dose Admin Acetaminophen 500 mg 02/18/19 20:03 Tylenol PO Q6HR PRN Pain , Severe (7-10) Acetaminophen/Hydrocodone Bitart 1 each 02/22/19 13:35 02/22/19 23:01 Parrish 10/325 PO 1 each Q6H PRN Administration Pain, Moderate (4-6) Albuterol 2.5 mg 02/19/19 08:51 Proventil IH Q4HRT PRN Shortness Of Breath Albuterol/Ipratropium 1 ampul 02/21/19 20:00 02/22/19 19:37 Duoneb *Not For Prn Use* IH Not Given Q6HRT VIC Arformoterol Tartrate 15 mcg 02/19/19 20:00 02/22/19 19:37 Brovana Nebu IH 15 mcg Q12HRT VIC Administration Budesonide 0.5 mg 02/19/19 20:00 02/22/19 19:37 Pulmicort IH 0.5 mg Q12HRT VIC Administration Enoxaparin Sodium 40 mg 02/19/19 22:00 02/22/19 23:00 Lovenox SUB-Q 40 mg QDAY@2200 VIC Administration Escitalopram Oxalate 20 mg 02/18/19 22:00 02/22/19 09:41 Lexapro PO 20 mg DAILY VIC Administration Gabapentin 300 mg 02/19/19 14:00 02/22/19 23:00 Neurontin PO 300 mg Q8HR VIC Administration Guaifenesin 10 ml 02/19/19 11:53 02/22/19 14:20 Guaifenesin Dm Syrup PO 10 ml Q4H PRN Administration Cough Hydralazine HCl 10 mg 02/21/19 13:55 02/21/19 17:35 Apresoline IV 10 mg Q4HR PRN Administration BP >160/100 Levofloxacin/Dextrose 750 mg in 150 mls @ 100 mls/hr 02/18/19 21:00 02/22/19 23:15 Levaquin 750mg/150ml IV 100 mls/hr Q24H VIC Administration Protocol Insulin Glargine 20 units 02/19/19 22:00 02/22/19 23:09 Lantus SUB-Q 20 units QHS VIC Administration Insulin Human Lispro 15 unit 02/19/19 07:30 02/22/19 16:30 Humalog SUB-Q 15 unit TIDAC VIC Administration Insulin Human Lispro 0 unit 02/18/19 22:00 02/22/19 23:03 Humalog SUB-Q 4 unit ACHS VIC Administration Protocol Lisinopril 40 mg 02/21/19 13:55 02/22/19 09:40 Zestril PO 40 mg DAILY VIC Administration Lorazepam 1 mg 02/19/19 10:00 02/22/19 23:01 Ativan PO 1 mg BID VIC Administration Methylprednisolone Sodium Succinate 60 mg 02/18/19 22:00 02/22/19 23:10 Solu-Medrol IV 60 mg Q8H VIC Administration Metoclopramide HCl 10 mg 02/18/19 22:33 Reglan IV Q6H PRN Nausea And Vomiting Mirtazapine 15 mg 02/22/19 22:00 02/22/19 23:00 Remeron PO 15 mg QHS VIC Administration Nicotine 21 mg 02/19/19 10:00 02/22/19 09:41 Habitrol TD Not Given QDAY VIC Pantoprazole Sodium 20 mg 02/18/19 22:00 02/22/19 09:40 Protonix PO 20 mg QDAY VIC Administration
[2019-02-23] MEDS: IPRATROPIUM/ALBUTEROL SULFATE 3 ML AMPUL.NEB IH SCH ×3 (03:30→14:43)
[2019-02-23] MEDS: GABAPENTIN 300 MG CAP PO SCH ×3 (06:25→21:01)
[2019-02-23] MEDS: methylPREDNISolone Sod Succinate 125 MG/2 ML INJ IV SCH ×2 (06:25→13:32)
[2019-02-23] MEDS: HYDROcodone/ACETAMINOPHEN 10-325MG TAB PO PRN ×2 (06:29→17:16)
[2019-02-23] MEDS: guaiFENesin DM 200/20 MG ORAL LIQD 10 ML PO PRN ×3 (06:29→17:16)
[2019-02-23] MEDS: ARFORMOTEROL 15 MCG/2 ML NEBU IH SCH (08:42)
[2019-02-23] MEDS: BUDESONIDE 0.5 MG/2 ML NEBU IH SCH (08:42)
[2019-02-23] MEDS: INSULIN LISPRO 100 UNIT/ML SUB-Q SCH ×6 (08:44→17:11)
[2019-02-23] MEDS ORDERED: INSULIN GLARGINE 100 UNITS/ML SUB-Q ONE (10:00)
[2019-02-23] MEDS: LISINOPRIL 20 MG TAB PO SCH (10:17)
[2019-02-23] MEDS: PANTOPRAZOLE 20 MG TAB PO SCH (10:18)
[2019-02-23] MEDS: ESCITALOPRAM 10 MG TAB PO SCH (10:18)
[2019-02-23] MEDS: LORazepam 1 MG TAB PO SCH ×2 (10:18→21:02)
[2019-02-23] MEDS: NICOTINE 21 MG/24 HR PATCH TD SCH ×2 (10:18→10:22)
[2019-02-23 12:47] VITALS: BP 148/99
[2019-02-23] MEDS: MIRTAZAPINE 15 MG TAB PO SCH (21:01)
== END 2019-02-23 21:00 | disposition home or self-care (01) | DRG 189 ==
LOC: ED 16:30 → 3A 18:41
PROVIDERS: ADMIT Internal Medicine; ATTEND Internal Medicine
PROC: 4A033R1 Measurement of Arterial Saturation, Peripheral, Percutaneous Approach (ICD-10-PCS; principal; 2019-02-18)
PROC: 5A09357 Assistance with Respiratory Ventilation, Less than 24 Consecutive Hours, Continuous Positive Airway Pressure (ICD-10-PCS; 2019-02-19)
PROC: 5A09357 Assistance with Respiratory Ventilation, Less than 24 Consecutive Hours, Continuous Positive Airway Pressure (ICD-10-PCS; 2019-02-20)
DX: J96.21 Acute and chronic respiratory failure with hypoxia (principal); J44.1 Chronic obstructive pulmonary disease with (acute) exacerbation; Z68.43 Body mass index [BMI] 50.0-59.9, adult; F20.9 Schizophrenia, unspecified; K21.9 Gastro-esophageal reflux disease without esophagitis; I50.9 Heart failure, unspecified; I11.0 Hypertensive heart disease with heart failure; G89.4 Chronic pain syndrome; E66.01 Morbid (severe) obesity due to excess calories; M19.90 Unspecified osteoarthritis, unspecified site; F17.210 Nicotine dependence, cigarettes, uncomplicated; E11.65 Type 2 diabetes mellitus with hyperglycemia; T38.0X5A Adverse effect of glucocorticoids and synthetic analogues, initial encounter; Y92.89 Other specified places as the place of occurrence of the external cause; Z90.710 Acquired absence of both cervix and uterus; Z99.81 Dependence on supplemental oxygen
CPT/HCPCS: 36415; 71045; 80048; 80076; 80307; 82550; 82553; 82803; 82962; 83036; 83880; 84484; 85025; 85610; 85730; 87116; 93005; 93010; 94640; 94644; 94660; 94760; 96365; 96375; G0378; J0360; J1650; J1815; J1956; J2930; J3475